=== PATIENT | male | born 1975 | race Caucasian/White ===

== ENCOUNTER 2016-08-06 03:39 | Inpatient (IN) | payer MEDICARE, OTHER ==
[2016-08-06] VITALS (7 sets, daily range): BP systolic 118–155; BP diastolic 62–99
[~2016-08-06] VITALS: Ht 177.8 cm; Wt 149.3 kg
[~2016-08-06 03:39] MED LIST: ACETAMINOPHEN325 M1 ORAL; ADVAIR 100-501 EACH INH; AMBIEN10 M1 ORAL; AMITRIPTYLINE25 MG ORAL; ATIVAN2 MG ORAL; BENTYL10 MG ORAL; COLACE100 MG ORAL; DEPAKOTE ER250 MG ORAL; DEPAKOTE ER500 MG ORAL; DILANTIN-1125 MG/5 M PO; DILANTIN100 MG ORAL; DILANTIN30 MG ORAL; DOCUSATE SODIU100 MG ORAL; FENTANYL1 EAC3 TDERMAL; FUROSEMIDE40 MG ORAL; HEPARIN SO5000 UNIT2 SUBQ; HYDROCHLOROTH12.5 M2 ORAL; HYDROCHLOROTH12.5 MG ORAL; LEVAQUIN500 MG ORAL; LISINOPRIL20 MG ORAL; MILK OF MA2400 MG/10 ORAL; MORPHINE IR15 MG ORAL; MORPHINE SULFAT30 M9 PO; NORCO 5-325 TA1 EAC1 ORAL; NORCO 5-325 TA1 EACH ORAL; NORVASC10 MG ORAL; PHENERGAN25 M1 ORAL; POLYETHYLENE GL17 GM ORAL; POTASSIUM CHLO20 ME3 PO; PROZAC20 MG ORAL; ROBAXIN-750750 MG PO; SEROQUEL XR400 MG ORAL; TEGRETOL200 MG PO; TOPIRAMATE100 MG ORAL; TRAZODONE HCL150 MG ORAL; TUMS500 MG ORAL; TYLENOL EXTRA500 MG ORAL; ZOFRAN ODT4 MG ORAL
[2016-08-06] MEDS ORDERED: Furosemide 40mg tab ORAL ONE (04:00)
--- NOTE | 2016-08-06 04:01 | Emergency Room Report ---
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 Pain has been ongoing since yesterday midsternal Patient also feels increased swelling in both of his lower extremities Has difficulty ambulating and feels more short of breath with exertion Patient reports poor compliance with seizure medication Reports that he was recently changed from his nursing facility to boarding care and has had also a new change with that and having difficulty getting medication Allergies: Coded Allergies: CEPHALEXIN (Verified Allergy, Mild, 12/13/14) PEANUT (Verified Allergy, Unknown, 11/19/15) Patient History Past Medical History: see triage record Pertinent Family History: none Reviewed Nursing Documentation: PMH: Agreed, PSxH: Agreed Nursing Documentation-PMH Hx Hypertension: Yes Hx COPD: Yes Hx Cancer: Yes - Sarcoma R femur and back Hx Gastrointestinal Problems: Yes History Of Psychiatric Problem: Yes - Bipolar, schizoeffective, anxiety, depression Hx Neurological Problems: Yes Hx Seizures: Yes Review of Systems All Other Systems: negative except mentioned in HPI Physical Exam Vital Signs Date Time Temp Pulse Resp B/P Pulse Ox O2 Delivery O2 Flow Rate FiO2 08/06/16 03:45 97.2 109 14 145/99 98 Room Air Sp02 EP Interpretation: reviewed, normal General Appearance: well appearing, no apparent distress Head: normocephalic, atraumatic Eyes: bilateral eye EOMI, bilateral eye PERRL ENT: hearing grossly normal, normal pharynx, TMs + canals normal, uvula midline Neck: full range of motion, supple, no meningismus, no bony tend Respiratory: no rhonchi, no respiratory distress, no retraction, no accessory muscle use, wheezing Cardiovascular #1: normal peripheral pulses, regular rate, rhythm, no gallop, no JVD, no murmur Gastrointestinal: normal bowel sounds, non tender, soft, no mass, no organomegaly, non-distended, no guarding, no hernia, no pulsatile mass, no rebound Genitourinary: no CVA tenderness Musculoskeletal: normal inspection Neurologic: oriented x3, responsive, vault person III-XII nml as tested, motor strength/ tone normal, sensory intact Psychiatric: mood/affect normal Skin: normal color, no rash, warm/dry, palpation normal Lymphatic: normal inspection, no adenopathy Medical Decision Making Diagnostic Impression: Primary Impression: ACS (acute coronary syndrome) Additional Impression: CHF (congestive heart failure) ER Course Patient is a fairly complex patient with multiple differential to consideration including but not limited to cardiac cardiopulmonary and vascular emergencies Patient's blood work is appropriate x-ray imaging does show evidence of congestion Patient was provided with diuretics At this time was admission for further care Labs Test 08/06/16 03:54 White Blood Count 14.3 K/UL (4.8-10.8) Red Blood Count 4.68 M/UL (4.70-6.10) Hemoglobin 14.3 G/DL (14.2-18.0) Hematocrit 42.6 % (42.0-52.0) Mean Corpuscular Volume 91 FL (80-99) Mean Corpuscular Hemoglobin 30.4 PG (27.0-31.0) Mean Corpuscular Hemoglobin Concent 33.4 G/DL (32.0-36.0) Red Cell Distribution Width 12.6 % (11.6-14.8) Platelet Count 277 K/UL (150-450) Mean Platelet Volume 6.9 FL (6.5-10.1) Neutrophils (%) (Auto) 67.6 % (45.0-75.0) Lymphocytes (%) (Auto) 23.7 % (20.0-45.0) Monocytes (%) (Auto) 6.9 % (1.0-10.0) Eosinophils (%) (Auto) 1.2 % (0.0-3.0) Basophils (%) (Auto) 0.7 % (0.0-2.0) Sodium Level 136 mEQ/L (135-145) Potassium Level 3.8 mEQ/L (3.4-4.9) Chloride Level 97 mEQ/L (98-107) Carbon Dioxide Level 22 mEQ/L (20-30) Anion Gap 17 (5-15) Blood Urea Nitrogen 9 mg/dL (7-23) Creatinine 0.7 mg/dL (0.7-1.2) Estimat Glomerular Filtration Rate > 60 mL/min (>60) Glucose Level 160 mg/dL (74-106) Calcium Level 9.1 mg/dL (8.6-10.2) Total Bilirubin 0.5 mg/dL (0.0-1.2) Aspartate Amino Transf (AST/SGOT) 34 U/L (5-40) Alanine Aminotransferase (ALT/SGPT) 45 U/L (3-41) Alkaline Phosphatase 149 U/L (40-129) Total Creatine Kinase 158 U/L (38-174) Creatine Kinase MB 5.2 ng/mL (< 6.7) Creatine Kinase MB Relative Index 3.2 Troponin I < 0.30 ng/mL (<=0.30) Pro-B-Type Natriuretic Peptide 10 pg/mL (0-125) Total Protein 6.6 g/dL (6.6-8.7) Albumin 3.9 g/dL (3.5-5.2) Globulin 2.7 g/dL Albumin/Globulin Ratio 1.4 (1.0-2.7) Lipase 26 U/L (< 60) Urine Opiates Screen Positive (NEGATIVE) Urine Barbiturates Screen Negative (NEGATIVE) Phencyclidine (PCP) Screen Negative (NEGATIVE) Urine Amphetamines Screen Negative (NEGATIVE) Urine Benzodiazepines Screen Positive (NEGATIVE) Urine Cocaine Screen Negative (NEGATIVE) Urine Marijuana (THC) Screen Positive (NEGATIVE) EKG Diagnostic Results Rate: normal Rhythm: NSR ST Segments: no acute changes Rhythm Strip Diag. Results EP Interpretation: yes Rate: 60 Rhythm: NSR, no PVC's, no ectopy Chest X-Ray Diagnostic Results EP Interpretation: Yes Findings: no consolidation, no pneumothorax, other - Pulmonary congestion, no acute bony abnormalities Number of Views: 1 Last Vital Signs Date Time Temp Pulse Resp B/P Pulse Ox O2 Delivery O2 Flow Rate FiO2 08/06/16 03:50 97.2 94 26 145/99 98 Room Air Status: improved Disposition: ADMITTED INPATIENT Condition: Serious PENNY BORRERO D.O. Aug 06, 2016 04:01
[2016-08-06] MEDS ORDERED: TEMAZEPAM30 MG ORAL (04:06)
[2016-08-06] MEDS ORDERED: NORCO 5-325 TA1 EACH ORAL (04:06)
[2016-08-06] MEDS ORDERED: DEPAKOTE ER500 MG ORAL (04:06)
[2016-08-06 04:12] LABS: BASOPHILS % (AUTO) 0.7 % (0.0-2.0); EOSINOPHILS % (AUTO) 1.2 % (0.0-3.0); LYMPHOCYTES % (AUTO) 23.7 % (20.0-45.0); MEAN CORPUSCULAR HEMOGLOBIN 30.4 PG (27.0-31.0); MEAN CORPUSCULAR HGB CONC 33.4 G/DL (32.0-36.0); MEAN CORPUSCULAR VOLUME 91 FL (80-99); MEAN PLATELET VOLUME 6.9 FL (6.5-10.1); MONOCYTES % (AUTO) 6.9 % (1.0-10.0); NEUTROPHILS % (AUTO) 67.6 % (45.0-75.0); PLATELET COUNT 277 K/UL (150-450); RED BLOOD COUNT 4.68 M/UL (4.70-6.10); RED CELL DISTRIBUTION WIDTH 12.6 % (11.6-14.8); WHITE BLOOD COUNT 14.3 K/UL (4.8-10.8)
[2016-08-06 04:26] LABS: ALANINE AMINOTRANSFERASE 45 U/L (3-41); ALBUMIN/GLOBULIN RATIO 1.4 (1.0-2.7); ANION GAP 17 (5-15); ASPARTATE AMINO TRANSFERASE 34 U/L (5-40); CALCIUM 9.1 mg/dL (8.6-10.2); CARBON DIOXIDE 22 mEQ/L (20-30); CHLORIDE 97 mEQ/L (98-107); CREATININE 0.7 mg/dL (0.7-1.2); GLOMERULAR FILTRATION RATE > 60 mL/min (>60); HEMOLYSIS 3; LIPASE 26 U/L (< 60); POTASSIUM 3.8 mEQ/L (3.4-4.9); SODIUM 136 mEQ/L (135-145); TOTAL PROTEIN 6.6 g/dL (6.6-8.7); TROPONIN I < 0.30 ng/mL (<=0.30)
[2016-08-06] MEDS ORDERED: Morphine Sulfate 10mg/ml Inj IVP ONE (04:30)
[2016-08-06 04:36] LABS: CKMB 5.2 ng/mL (< 6.7)
[2016-08-06] MEDS ORDERED: Morphine Sulfate 2mg/ml Inj IVP PRN ×2 (07:45→11:07)
[2016-08-06] MEDS ORDERED: Tums 500mg ORAL PRN (07:45)
[2016-08-06] MEDS ORDERED: Miralax 17gm pkt ORAL PRN ×2 (07:45)
[2016-08-06] MEDS ORDERED: DuoNeb 0.5-3(2.5)mg/3ml neb HHN PRN (07:45)
[2016-08-06] MEDS ORDERED: Diltiazem 25mg/5ml IV PRN (07:45)
[2016-08-06] MEDS ORDERED: Nitroglycerin Subl 0.4mg tab (Bottle Of 25) SL PRN (07:45)
[2016-08-06] MEDS ORDERED: Enalaprilat 2.5mg/2ml Inj IV PRN (07:45)
[2016-08-06] MEDS ORDERED: Ketorolac 30mg Inj IV PRN (07:45)
[2016-08-06] MEDS ORDERED: Methocarbamol 750mg tab ORAL PRN (08:30)
[2016-08-06] MEDS: Phenytoin Susp 100mg/4ml ORAL SCH (09:45)
[2016-08-06] MEDS: Depakote ER 500mg tab ORAL SCH ×2 (09:45→21:04)
[2016-08-06] MEDS: Topiramate 100mg tab ORAL SCH ×2 (09:46→17:04)
[2016-08-06] MEDS: carBAMazepine 200mg tab ORAL SCH ×2 (09:46→21:06)
[2016-08-06] MEDS: Heparin 5000 units/ml inj SUBQ SCH ×2 (09:48→21:01)
[2016-08-06] MEDS: Lisinopril 20mg tab ORAL SCH (09:51)
[2016-08-06] MEDS ORDERED: Naloxone 0.4mg/ml Inj IV PRN (11:00)
[2016-08-06] MEDS ORDERED: Aspirin Baby 81mg ORAL SCH (11:00)
--- NOTE | 2016-08-06 11:34 | Diagnostic Imaging Report ---
Indication: Chest pain Technique: One view of the chest Comparison: 11/23/2015 Findings: The heart is mildly enlarged. There is mild pulmonary vascular congestion, which is a new finding since the prior study. No focal airspace consolidation. Pleural spaces are clear. Impression: Cardiomegaly. Pulmonary vascular congestion. This agrees with the preliminary interpretation provided by the emergency room physician
--- NOTE | 2016-08-06 12:29 | Consultation ---
History of Present Illness General Date patient seen: Aug 06, 2016 Chief Complaint: Chest Pain Present Illness HPI 40 year old male with hx of bone sarcome, presents with complaints of chest pain or shortness of breath Patient also feels increased swelling in both of his lower extremities. Initial ccxr in ER showed cardiomegaly and pulmonary edema. Pt is admitted to telemetry for further evaluation. Allergies: Coded Allergies: KETOROLAC (Verified Allergy, Severe, 08/06/16) CEPHALEXIN (Verified Allergy, Mild, 12/13/14) PEANUT (Verified Allergy, Unknown, 11/19/15) Medication History Scheduled Amitriptyline HCl (Elavil*), 25 MG ORAL BEDTIME, (Reported) Amlodipine Besylate (Norvasc), 10 MG ORAL DAILY, (Reported) Carbamazepine (Tegretol*), 300 MG PO Q12HR, (Reported) Dicyclomine Hcl* (Bentyl*), 20 MG ORAL FOUR TIMES A DAY, (Reported) Divalproex Sodium* (Depakote Er*), 1,000 MG ORAL EVERY 12 HOURS, (Reported) Divalproex Sodium* (Depakote Er*), 750 MG ORAL DAILY, (Reported) Docusate Sodium* (Colace*), 100 MG ORAL DAILY, (Reported) Fentanyl 100MCG Patch* (Fentanyl 100MCG Patch*), 1 PATCH TDERMAL EVERY 72 HOURS, (Reported) Fluoxetine Hcl* (Prozac*), 20 MG ORAL DAILY, (Reported) Fluticasone/Salmeterol (Advair 100-50 Diskus), 1 PUFF INH BID, (Reported) Furosemide* (Lasix*), 40 MG ORAL DAILY, (Reported) Heparin Sod (Porcine) (Heparin Sodium*), 5,000 UNITS SUBQ EVERY 12 HOURS, ( Reported) Hydrochlorothiazide* (Hydrochlorothiazide*), 12.5 MG ORAL DAILY, (Reported) Lisinopril (Lisinopril*), 20 MG ORAL DAILY, (Reported) Lorazepam* (Ativan*), 2 MG ORAL EVERY 6 HOURS, (Reported) Morphine Sulfate (Morphine Sulfate ER), 30 MG PO Q8HR, (Reported) Phenytoin (Dilantin-125), 250 MG PO DAILY, (Reported) Potassium Chloride (Potassium Chloride), 20 MEQ PO DAILY, (Reported) Promethazine Hcl* (Phenergan*), 25 MG ORAL Q4HR, (Reported) Quetiapine Fumarate (Seroquel Xr), 400 MG ORAL DAILY, (Reported) Topiramate* (Topamax*), 50 MG ORAL TWICE A DAY, (Reported) Trazodone* (Trazodone*), 100 MG ORAL BEDTIME, (Reported) Scheduled PRN Acetaminophen* (Acetaminophen 325MG Tablet*), 650 MG ORAL Q6H PRN for Mild Pain/ Temp > 100.5, (Reported) Calcium Carbonate (Calcium), 500 MG ORAL Q4HR PRN for Per rx protocol, (Reported ) Hydrocodone Bit/Acetaminophen 5-325* ([place] 5-325 Tablet*), 2 TAB ORAL Q4H PRN for For Pain, (Reported) Hydrocodone Bit/Acetaminophen 5-325* ([place] 5-325*), 1 TAB ORAL Q4H PRN for For Pain, (Reported) Magnesium Hydroxide* (Milk Of Magnesia*), 30 ML ORAL DAILY PRN for Constipation, (Reported) Methocarbamol* (Robaxin-750*), 750 MG PO QID PRN for Muscle Spasm, (Reported) Morphine HCl (Morphine Sulfate ER), 15 MG ORAL Q6H PRN for Severe Pain (Pain Scale 7-10), (Reported) Ondansetron Odt* (Zofran Odt*), 4 MG ORAL Q4HR PRN for Nausea & Vomiting, ( Reported) Polyethylene Glycol 3350* (Polyethylene Glycol 3350*), 17 GM ORAL BEDTIME PRN for Constipation, (Reported) Temazepam* (Temazepam*), 15 MG ORAL BEDTIME PRN for Insomnia, (Reported) Zolpidem Tartrate* (Ambien*), 10 MG ORAL HS PRN for Insomnia, (Reported) Patient History Healthcare decision maker Resuscitation status Full Code Advanced Directive on File Past Medical/Surgical History Past Medical/Surgical History: (1) CHF (congestive heart failure) (2) Hepatitis C (3) Osteosarcoma (4) Morbid obesity Review of Systems All Other Systems: negative except mentioned in HPI Physical Exam General Appearance: WD/WN, no apparent distress Lines, tubes and drains: peripheral HEENT: normocephalic, atraumatic Neck: non-tender, normal alignment Respiratory/Chest: chest wall non-tender, lungs clear Cardiovascular/Chest: normal peripheral pulses, normal rate Abdomen: normal bowel sounds, non tender Extremities: normal range of motion, non-tender Skin Exam: normal pigmentation Last 24 Hour Vital Signs Date Time Temp Pulse Resp B/P Pulse Ox O2 Delivery O2 Flow Rate FiO2 08/06/16 12:05 98.4 88 20 118/77 91 Nasal Cannula 08/06/16 09:51 140/62 08/06/16 09:45 83 140/62 08/06/16 08:00 83 08/06/16 08:00 97.8 83 25 140/62 92 Nasal Cannula 08/06/16 07:15 Nasal Cannula 2.0 28 08/06/16 07:15 98 Nasal Cannula 2.0 28 08/06/16 06:34 97.3 83 20 118/75 95 Nasal Cannula 2.0 08/06/16 05:50 97.5 83 19 138/83 96 Room Air 08/06/16 05:50 97.5 83 19 138/83 96 Room Air 08/06/16 04:52 97.2 08/06/16 03:50 97.2 94 26 145/99 98 Room Air 08/06/16 03:50 94 26 Room Air 08/06/16 03:45 97.2 109 14 145/99 98 Room Air Intake and Output 08/05/16 08/06/16 19:00 07:00 Intake Total 0 ml Output Total 100 ml Balance -100 ml Intake Other 0 ml Output Urine Total 100 ml # Voids 1 Laboratory Tests Test 08/06/16 03:54 White Blood Count 14.3 K/UL (4.8-10.8) H Red Blood Count 4.68 M/UL (4.70-6.10) L Hemoglobin 14.3 G/DL (14.2-18.0) Hematocrit 42.6 % (42.0-52.0) Mean Corpuscular Volume 91 FL (80-99) Mean Corpuscular Hemoglobin 30.4 PG (27.0-31.0) Mean Corpuscular Hemoglobin Concent 33.4 G/DL (32.0-36.0) Red Cell Distribution Width 12.6 % (11.6-14.8) Platelet Count 277 K/UL (150-450) Mean Platelet Volume 6.9 FL (6.5-10.1) Neutrophils (%) (Auto) 67.6 % (45.0-75.0) Lymphocytes (%) (Auto) 23.7 % (20.0-45.0) Monocytes (%) (Auto) 6.9 % (1.0-10.0) Eosinophils (%) (Auto) 1.2 % (0.0-3.0) Basophils (%) (Auto) 0.7 % (0.0-2.0) Sodium Level 136 mEQ/L (135-145) Potassium Level 3.8 mEQ/L (3.4-4.9) Chloride Level 97 mEQ/L (98-107) L Carbon Dioxide Level 22 mEQ/L (20-30) Anion Gap 17 (5-15) H Blood Urea Nitrogen 9 mg/dL (7-23) Creatinine 0.7 mg/dL (0.7-1.2) Estimat Glomerular Filtration Rate > 60 mL/min (>60) Glucose Level 160 mg/dL (74-106) H Calcium Level 9.1 mg/dL (8.6-10.2) Total Bilirubin 0.5 mg/dL (0.0-1.2) Aspartate Amino Transf (AST/SGOT) 34 U/L (5-40) Alanine Aminotransferase (ALT/SGPT) 45 U/L (3-41) H Alkaline Phosphatase 149 U/L (40-129) H Total Creatine Kinase 158 U/L (38-174) Creatine Kinase MB 5.2 ng/mL (< 6.7) Creatine Kinase MB Relative Index 3.2 Troponin I < 0.30 ng/mL (<=0.30) Pro-B-Type Natriuretic Peptide 10 pg/mL (0-125) Total Protein 6.6 g/dL (6.6-8.7) Albumin 3.9 g/dL (3.5-5.2) Globulin 2.7 g/dL Albumin/Globulin Ratio 1.4 (1.0-2.7) Lipase 26 U/L (< 60) Urine Opiates Screen Positive (NEGATIVE) H Urine Barbiturates Screen Negative (NEGATIVE) Phencyclidine (PCP) Screen Negative (NEGATIVE) Urine Amphetamines Screen Negative (NEGATIVE) Urine Benzodiazepines Screen Positive (NEGATIVE) H Urine Cocaine Screen Negative (NEGATIVE) Urine Marijuana (THC) Screen Positive (NEGATIVE) H Height (Feet): 5 Height (Inches): 10.00 Weight (Pounds): 337 Medications Current Medications Medications (Trade) Dose Ordered Sig/Robert Route PRN Reason Start Time Stop Time Status Last Admin Dose Admin Acetaminophen (Tylenol) 650 mg Q4H PRN ORAL FEVER 08/06/16 07:45 09/05/16 07:44 Albuterol/ Ipratropium (DuoNeb 0.5-3(2.5)mg/3ml) 3 ml Q4H PRN HHN Shortness of Breath 08/06/16 07:45 08/11/16 07:44 Amitriptyline HCl (Elavil) 25 mg BEDTIME ORAL 08/06/16 21:00 09/05/16 20:59 Amlodipine Besylate (Norvasc) 10 mg DAILY ORAL 08/06/16 10:00 09/05/16 09:59 08/06/16 09:45 Calcium Carbonate (Tums) 500 mg Q4H PRN ORAL dyspepsia 08/06/16 07:45 09/05/16 07:44 Carbamazepine (TEGretol) 300 mg Q12HR ORAL 08/06/16 10:00 09/05/16 09:59 08/06/16 09:46 Diltiazem HCl (Cardizem) 10 mg Q1H PRN IV heart rate more than 120, 08/06/16 07:45 09/05/16 07:44 Divalproex Sodium (Depakote ER) 1,000 mg EVERY 12 HOURS ORAL 08/06/16 10:00 09/05/16 09:59 08/06/16 09:45 Enalaprilat (Vasotec) 2.5 mg Q6H PRN IV sbp more than 160 08/06/16 07:45 09/05/16 07:44 Fentanyl (Duragesic) 1 patch Q72H TDERMAL 08/06/16 12:00 08/13/16 11:59 08/06/16 11:27 Fluoxetine HCl (PROzac) 20 mg DAILY ORAL 08/06/16 10:00 09/05/16 09:59 08/06/16 09:47 Heparin Sodium (Porcine) (Heparin 5000 units/ml) 5,000 units EVERY 12 HOURS SUBQ 08/06/16 10:00 09/05/16 09:59 08/06/16 09:48 Hydromorphone HCl (Dilaudid) 2 mg Q3H PRN IVP Severe Pain (Pain Scale 7-10) 08/06/16 10:45 08/13/16 10:44 08/06/16 11:28 Lisinopril (Prinivil) 20 mg DAILY ORAL 08/06/16 10:00 09/05/16 09:59 08/06/16 09:51 Methocarbamol (Robaxin) 750 mg QIDPRN PRN ORAL Muscle Spasm 08/06/16 08:30 09/05/16 08:29 Morphine Sulfate (Morphine Sulfate) 2 mg Q4H PRN IVP Moderate Pain (Pain Scale 4-6) 08/06/16 11:07 08/13/16 07:44 Naloxone HCl (Narcan) 0.1 mg STAT PRN IV Sedation scale 3 or 4 08/06/16 11:00 09/05/16 10:59 Nitroglycerin (Ntg) 0.4 mg Q5M PRN SL Prn Chest Pain 08/06/16 07:45 09/05/16 07:44 Ondansetron HCl (Zofran) 4 mg Q6H PRN IVP Nausea & Vomiting 08/06/16 07:45 09/05/16 07:44 Pantoprazole (Protonix) 40 mg DAILY ORAL 08/06/16 10:00 09/05/16 09:59 08/06/16 09:48 Phenytoin (Dilantin) 250 mg DAILY ORAL 08/06/16 10:00 09/05/16 09:59 08/06/16 09:45 Polyethylene Glycol (Miralax) 17 gm DAILYPRN PRN ORAL Constipation 08/06/16 07:45 09/05/16 07:44 Temazepam (Restoril) 15 mg HSPRN PRN ORAL Insomnia 08/06/16 07:45 08/13/16 07:44 Topiramate (Topamax) 50 mg TWICE A DAY ORAL 08/06/16 10:00 09/05/16 09:59 08/06/16 09:46 Trazodone HCl (Desyrel) 100 mg BEDTIME ORAL 08/06/16 21:00 09/05/16 20:59 Assessment/Plan Problem List: (1) ACS (acute coronary syndrome) ICD Codes: I24.9 - Acute ischemic heart disease, unspecified SNOMED: 200362336 (2) CHF (congestive heart failure) ICD Codes: I50.9 - Heart failure, unspecified SNOMED: 01004459 (3) Morbid obesity ICD Codes: E66.01 - Morbid (severe) obesity due to excess calories SNOMED: 081524691 (4) Osteosarcoma ICD Codes: C41.9 - Malignant neoplasm of bone and articular cartilage, unspecified SNOMED: 041489549 (5) Hepatitis C ICD Codes: B19.20 - Unspecified viral hepatitis C without hepatic coma SNOMED: 45987098 Assessment/Plan serial ekg, troponin pain management cardiology to see echo LAUREN OCHOA Aug 06, 2016 12:29
--- NOTE | 2016-08-06 18:06 | General Progress Note ---
Assessment/Plan Assessment/Plan (1) Osteosarcoma of femur (2) Morbid obesity (3) Chronic pain syndrome (4) Seizure disorder Patient will be continued on Dilaudid 2mg IV Q3H PRN severe pain, Fentanyl patch 100mcg/hr Q72H, discontinue Morphine IV and start Lyrica 100mg POI tab TID , Percocet 10/325mg PO 1 tab Q4H moderate pain. We will try to Obtain recent MRI results of lumbar spine. Pt was d/w Dr. Muhammad and he concurred. Thank you for courtesy of this consultation. Subjective Date patient seen: Aug 06, 2016 Time patient seen: 04:00 - pm Allergies: Coded Allergies: KETOROLAC (Verified Allergy, Severe, 08/06/16) ASPIRIN (Verified Allergy, Intermediate, 08/06/16) CEPHALEXIN (Verified Allergy, Mild, 12/13/14) PEANUT (Verified Allergy, Unknown, 11/19/15) Subjective REVIEW OF SYSTEMS: Denies rash, fever, chills, sweating, dizziness, drowsiness, blurred vision, sore throat, change in weight. No chest pain. He is complaining of low back and lower extremity pain. SUBJECTIVE: Pt is a known pt from prior admission and is admitted due to ACS. 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 We were consulted so pt would have adequate pain control while in the hospital. At this time nurse was present in the room and I d/w him about continuing him on Fentanyl patch and Dilaudid IVP discontinuing the Morphine IVP and starting him on Percocet and Lyrica while trying to obtain his most recent MRI of lumbar spine which pt reports he has recently done. Patient agrees with the plan. Objective Last 24 Hour Vital Signs Date Time Temp Pulse Resp B/P Pulse Ox O2 Delivery O2 Flow Rate FiO2 08/06/16 16:00 97.0 82 18 120/82 98 Room Air 80 08/06/16 12:05 98.4 88 20 118/77 91 Nasal Cannula 08/06/16 12:00 89 08/06/16 09:51 140/62 08/06/16 09:45 83 140/62 08/06/16 08:00 83 08/06/16 08:00 97.8 83 25 140/62 92 Nasal Cannula 08/06/16 07:15 Nasal Cannula 2.0 28 08/06/16 07:15 98 Nasal Cannula 2.0 28 08/06/16 06:34 97.3 83 20 118/75 95 Nasal Cannula 2.0 08/06/16 05:50 97.5 83 19 138/83 96 Room Air 08/06/16 05:50 97.5 83 19 138/83 96 Room Air 08/06/16 04:52 97.2 08/06/16 03:50 97.2 94 26 145/99 98 Room Air 08/06/16 03:50 94 26 Room Air 08/06/16 03:45 97.2 109 14 145/99 98 Room Air Intake and Output 08/05/16 08/06/16 19:00 07:00 Intake Total 0 ml Output Total 100 ml Balance -100 ml Intake Other 0 ml Output Urine Total 100 ml # Voids 1 Laboratory Tests 08/06/16 03:54: White Blood Count 14.3H, Red Blood Count 4.68L, Hemoglobin 14.3, Hematocrit 42.6 , Mean Corpuscular Volume 91, Mean Corpuscular Hemoglobin 30.4, Mean Corpuscular Hemoglobin Concent 33.4, Red Cell Distribution Width 12.6, Platelet Count 277, Mean Platelet Volume 6.9, Neutrophils (%) (Auto) 67.6, Lymphocytes (% ) (Auto) 23.7, Monocytes (%) (Auto) 6.9, Eosinophils (%) (Auto) 1.2, Basophils ( %) (Auto) 0.7, Sodium Level 136, Potassium Level 3.8, Chloride Level 97L, Carbon Dioxide Level 22, Anion Gap 17H, Blood Urea Nitrogen 9, Creatinine 0.7, Estimat Glomerular Filtration Rate > 60, Glucose Level 160H, Calcium Level 9.1, Total Bilirubin 0.5, Aspartate Amino Transf (AST/SGOT) 34, Alanine Aminotransferase (ALT/SGPT) 45H, Alkaline Phosphatase 149H, Total Creatine Kinase 158, Creatine Kinase MB 5.2, Creatine Kinase MB Relative Index 3.2, Troponin I < 0.30, Pro-B-Type Natriuretic Peptide 10, Total Protein 6.6, Albumin 3.9, Globulin 2.7, Albumin/Globulin Ratio 1.4, Lipase 26, Urine Opiates Screen PositiveH, Urine Barbiturates Screen Negative, Phencyclidine (PCP) Screen Negative, Urine Amphetamines Screen Negative, Urine Benzodiazepines Screen PositiveH, Urine Cocaine Screen Negative, Urine Marijuana (THC) Screen PositiveH Height (Feet): 5 Height (Inches): 10.00 Weight (Pounds): 337 Objective GENERAL: Alert and oriented x3. HEENT: PERRLA. NECK: Range of motion is full in all direction. No tenderness to paracervical muscles. No adenopathy. LUNGS: Clear. HEART: Regular. ABDOMEN: Obese, tenderness to palpation BACK: Range of motion is decreased on flexion and extension with tenderness to paraspinal muscles. No tenderness to trapezius muscles. EXTREMITIES: No cyanosis, no clubbing, no edema. NEUROLOGICAL EXAM: Lower extremities range of motion is decreased due to patient's medical condition with motor being 4/5 in all muscles bilaterally. LIA HAGEN Aug 06, 2016 18:06
[2016-08-06] MEDS: Lyrica 50mg cap ORAL SCH (18:29)
--- NOTE | 2016-08-06 20:24 | Infectious Diseases Prog Note ---
Assessment/Plan Problems: (1) Chest pain (2) CHF (congestive heart failure) (3) Leukocytosis Subjective Allergies: Coded Allergies: KETOROLAC (Verified Allergy, Severe, 08/06/16) ASPIRIN (Verified Allergy, Intermediate, 08/06/16) CEPHALEXIN (Verified Allergy, Mild, 12/13/14) PEANUT (Verified Allergy, Unknown, 11/19/15) Objective Vital Signs Last 24 Hour Vital Signs Date Time Temp Pulse Resp B/P Pulse Ox O2 Delivery O2 Flow Rate FiO2 08/06/16 20:20 98.3 87 20 155/98 99 Nasal Cannula 2.0 08/06/16 16:00 97.0 82 18 120/82 98 Room Air 80 08/06/16 16:00 91 08/06/16 12:05 98.4 88 20 118/77 91 Nasal Cannula 08/06/16 12:00 89 08/06/16 09:51 140/62 08/06/16 09:45 83 140/62 08/06/16 08:00 83 08/06/16 08:00 97.8 83 25 140/62 92 Nasal Cannula 08/06/16 07:15 Nasal Cannula 2.0 28 08/06/16 07:15 98 Nasal Cannula 2.0 28 08/06/16 06:34 97.3 83 20 118/75 95 Nasal Cannula 2.0 08/06/16 05:50 97.5 83 19 138/83 96 Room Air 08/06/16 05:50 97.5 83 19 138/83 96 Room Air 08/06/16 04:52 97.2 08/06/16 03:50 97.2 94 26 145/99 98 Room Air 08/06/16 03:50 94 26 Room Air 08/06/16 03:45 97.2 109 14 145/99 98 Room Air Height (Feet): 5 Height (Inches): 10.00 Weight (Pounds): 337 Laboratory Tests Test 08/06/16 03:54 White Blood Count 14.3 K/UL (4.8-10.8) H Red Blood Count 4.68 M/UL (4.70-6.10) L Hemoglobin 14.3 G/DL (14.2-18.0) Hematocrit 42.6 % (42.0-52.0) Mean Corpuscular Volume 91 FL (80-99) Mean Corpuscular Hemoglobin 30.4 PG (27.0-31.0) Mean Corpuscular Hemoglobin Concent 33.4 G/DL (32.0-36.0) Red Cell Distribution Width 12.6 % (11.6-14.8) Platelet Count 277 K/UL (150-450) Mean Platelet Volume 6.9 FL (6.5-10.1) Neutrophils (%) (Auto) 67.6 % (45.0-75.0) Lymphocytes (%) (Auto) 23.7 % (20.0-45.0) Monocytes (%) (Auto) 6.9 % (1.0-10.0) Eosinophils (%) (Auto) 1.2 % (0.0-3.0) Basophils (%) (Auto) 0.7 % (0.0-2.0) Sodium Level 136 mEQ/L (135-145) Potassium Level 3.8 mEQ/L (3.4-4.9) Chloride Level 97 mEQ/L (98-107) L Carbon Dioxide Level 22 mEQ/L (20-30) Anion Gap 17 (5-15) H Blood Urea Nitrogen 9 mg/dL (7-23) Creatinine 0.7 mg/dL (0.7-1.2) Estimat Glomerular Filtration Rate > 60 mL/min (>60) Glucose Level 160 mg/dL (74-106) H Calcium Level 9.1 mg/dL (8.6-10.2) Total Bilirubin 0.5 mg/dL (0.0-1.2) Aspartate Amino Transf (AST/SGOT) 34 U/L (5-40) Alanine Aminotransferase (ALT/SGPT) 45 U/L (3-41) H Alkaline Phosphatase 149 U/L (40-129) H Total Creatine Kinase 158 U/L (38-174) Creatine Kinase MB 5.2 ng/mL (< 6.7) Creatine Kinase MB Relative Index 3.2 Troponin I < 0.30 ng/mL (<=0.30) Pro-B-Type Natriuretic Peptide 10 pg/mL (0-125) Total Protein 6.6 g/dL (6.6-8.7) Albumin 3.9 g/dL (3.5-5.2) Globulin 2.7 g/dL Albumin/Globulin Ratio 1.4 (1.0-2.7) Lipase 26 U/L (< 60) Urine Opiates Screen Positive (NEGATIVE) H Urine Barbiturates Screen Negative (NEGATIVE) Phencyclidine (PCP) Screen Negative (NEGATIVE) Urine Amphetamines Screen Negative (NEGATIVE) Urine Benzodiazepines Screen Positive (NEGATIVE) H Urine Cocaine Screen Negative (NEGATIVE) Urine Marijuana (THC) Screen Positive (NEGATIVE) H Current Medications Medications (Trade) Dose Ordered Sig/Robert Route PRN Reason Start Time Stop Time Status Last Admin Dose Admin Acetaminophen (Tylenol) 650 mg Q4H PRN ORAL FEVER 08/06/16 07:45 09/05/16 07:44 Albuterol/ Ipratropium (DuoNeb 0.5-3(2.5)mg/3ml) 3 ml Q4H PRN HHN Shortness of Breath 08/06/16 07:45 08/11/16 07:44 Amitriptyline HCl (Elavil) 25 mg BEDTIME ORAL 08/06/16 21:00 09/05/16 20:59 Amlodipine Besylate (Norvasc) 10 mg DAILY ORAL 08/06/16 10:00 09/05/16 09:59 08/06/16 09:45 Calcium Carbonate (Tums) 500 mg Q4H PRN ORAL dyspepsia 08/06/16 07:45 09/05/16 07:44 Carbamazepine (TEGretol) 300 mg Q12HR ORAL 08/06/16 10:00 09/05/16 09:59 08/06/16 09:46 Diltiazem HCl (Cardizem) 10 mg Q1H PRN IV heart rate more than 120, 08/06/16 07:45 09/05/16 07:44 Divalproex Sodium (Depakote ER) 1,000 mg EVERY 12 HOURS ORAL 08/06/16 10:00 09/05/16 09:59 08/06/16 09:45 Enalaprilat (Vasotec) 2.5 mg Q6H PRN IV sbp more than 160 08/06/16 07:45 09/05/16 07:44 Fentanyl (Duragesic) 1 patch Q72H TDERMAL 08/06/16 12:00 08/13/16 11:59 08/06/16 11:27 Fluoxetine HCl (PROzac) 20 mg DAILY ORAL 08/06/16 10:00 09/05/16 09:59 08/06/16 09:47 Heparin Sodium (Porcine) (Heparin 5000 units/ml) 5,000 units EVERY 12 HOURS SUBQ 08/06/16 10:00 09/05/16 09:59 08/06/16 09:48 Hydromorphone HCl (Dilaudid) 2 mg Q3H PRN IVP Severe Pain (Pain Scale 7-10) 08/06/16 10:45 08/13/16 10:44 08/06/16 18:58 Lisinopril (Prinivil) 20 mg DAILY ORAL 08/06/16 10:00 09/05/16 09:59 08/06/16 09:51 Methocarbamol (Robaxin) 750 mg QIDPRN PRN ORAL Muscle Spasm 08/06/16 08:30 09/05/16 08:29 Naloxone HCl (Narcan) 0.1 mg STAT PRN IV Sedation scale 3 or 4 08/06/16 11:00 09/05/16 10:59 Nitroglycerin (Ntg) 0.4 mg Q5M PRN SL Prn Chest Pain 08/06/16 07:45 09/05/16 07:44 Ondansetron HCl (Zofran) 4 mg Q6H PRN IVP Nausea & Vomiting 08/06/16 07:45 09/05/16 07:44 Oxycodone/ Acetaminophen (Percocet 10/325) 1 tab Q4H PRN ORAL moderate breakthrough pain 08/06/16 18:15 08/13/16 18:14 Pantoprazole (Protonix) 40 mg DAILY ORAL 08/06/16 10:00 09/05/16 09:59 08/06/16 09:48 Phenytoin (Dilantin) 250 mg DAILY ORAL 08/06/16 10:00 09/05/16 09:59 08/06/16 09:45 Polyethylene Glycol (Miralax) 17 gm DAILYPRN PRN ORAL Constipation 08/06/16 07:45 09/05/16 07:44 Pregabalin (Lyrica) 100 mg THREE TIMES A DAY ORAL 08/06/16 18:30 09/05/16 18:29 08/06/16 18:29 Temazepam (Restoril) 15 mg HSPRN PRN ORAL Insomnia 08/06/16 07:45 08/13/16 07:44 Topiramate (Topamax) 50 mg TWICE A DAY ORAL 08/06/16 10:00 09/05/16 09:59 08/06/16 17:04 Trazodone HCl (Desyrel) 100 mg BEDTIME ORAL 08/06/16 21:00 09/05/16 20:59 Uri Tesfaye M.D. Aug 06, 2016 20:24
[2016-08-06] MEDS: TraZODone 100mg tab ORAL SCH (21:05)
[2016-08-07 00:13] VITALS: BP 106/48
--- NOTE | 2016-08-07 02:45 | History and Physical Report ---
DATE OF ADMISSION: 08/06/2016 TIME SEEN: 4 p.m. CONSULTANTS: 1. Chevy Rosenthal M.D. 2. Ministerio Joe M.D. 3. Awa Thomas M.D. 4. Ignacio Muhammad M.D. CHIEF COMPLAINT: Chest pain and congestive heart failure exacerbation. BRIEF HISTORY: This is a 40-year-old male initially from [facility], went to independent living, now currently in between places, had chest pain substernal intermittently for two days, slightly short of breath, came to [facility], diagnosed with the above, and admitted to telemetry for further care. Currently, very anxious and sad in bed, oriented x3, and in no acute distress. He has slight chest pain and slight short of breath. No nausea, vomiting, or diarrhea. PAST MEDICAL HISTORY: Hypertension, CHF, encephalopathy, COPD, sleep apnea, and right femur sarcoma. PAST SURGICAL HISTORY: Gallbladder. MEDICATIONS: Include Elavil, Desyrel, Duragesic, morphine sulfate, Narcan, Dilaudid, Norvasc, Tegretol, Depakote, Prozac, Prinivil, and Dilantin. ALLERGIES: Aspirin, Keflex, and ketorolac. SOCIAL HISTORY: Positive for smoking. No alcohol. Positive marijuana use. PHYSICAL EXAMINATION: GENERAL: Calm, slightly anxious in bed, oriented x3, and in no acute distress. VITAL SIGNS: Show temperature of 98 degrees, pulse 88, respirations 20, and blood pressure 118/77. CARDIOVASCULAR: No murmurs. LUNGS: Distant and clear. ABDOMEN: Bowel sounds positive. Nontender and nondistended. EXTREMITIES: No cyanosis, clubbing, or edema. NEUROLOGIC: The patient moves all extremities, but slightly weak. LABORATORY DATA: Show white count 14, otherwise CBC is normal. BMP shows chloride 97, glucose 160, alkaline phosphatase 149, ALT 45, otherwise normal. Urine toxicology show positive benzo and positive marijuana. ASSESSMENT: 1. Chest pain. 2. Congestive heart failure. 3. Obesity. 4. Hypertension. 5. Diabetes. 6. Encephalopathy. 7. Chronic obstructive pulmonary disease. 8. Sleep apnea. 9. Right femur sarcoma. 10. Leukocytosis. PLAN: 1. Continue premedications. 2. Antibiotics per Infectious Disease 3. OT, PT, and dietary evaluation. 4. Home medications. 5. Blood pressure and blood sugar control. 6. Pain control. 7. Dr. Rosenthal, Dr. Joe, Dr. Thomas, and Dr. Muhammad to consult. Jeremiah Singh D.O. DR: ANGE JOB#: [id number] CC:
[2016-08-07 03:58] VITALS: BP 98/46
[2016-08-07 06:52] LABS: CHOLESTEROL/HDL RATIO 4.9 (3.3-4.4); CRP QUANT 2.3 mg/dL (< 0.5)
[2016-08-07 06:56] LABS: THYROID STIMULATING HORMONE 0.846 uIU/mL (0.300-4.500)
[2016-08-07 07:01] LABS: BASOPHILS % (AUTO) 0.6 % (0.0-2.0); EOSINOPHILS % (AUTO) 1.6 % (0.0-3.0); LYMPHOCYTES % (AUTO) 26.7 % (20.0-45.0); MEAN CORPUSCULAR HEMOGLOBIN 30.6 PG (27.0-31.0); MEAN CORPUSCULAR HGB CONC 33.1 G/DL (32.0-36.0); MEAN CORPUSCULAR VOLUME 93 FL (80-99); MEAN PLATELET VOLUME 7.6 FL (6.5-10.1); MONOCYTES % (AUTO) 6.7 % (1.0-10.0); NEUTROPHILS % (AUTO) 64.3 % (45.0-75.0); PLATELET COUNT 253 K/UL (150-450); RED CELL DISTRIBUTION WIDTH 13.1 % (11.6-14.8); WHITE BLOOD COUNT 10.8 K/UL (4.8-10.8)
[2016-08-07 07:18] LABS: TROPONIN I < 0.30 ng/mL (<=0.30)
[2016-08-07 07:58] VITALS: BP 119/68
[2016-08-07] MEDS: Lyrica 50mg cap ORAL SCH ×3 (09:33→17:58)
[2016-08-07] MEDS: Phenytoin Susp 100mg/4ml ORAL SCH (09:33)
[2016-08-07] MEDS: carBAMazepine 200mg tab ORAL SCH ×2 (09:34→20:46)
[2016-08-07] MEDS: Lisinopril 20mg tab ORAL SCH (09:34)
[2016-08-07] MEDS: Depakote ER 500mg tab ORAL SCH ×2 (09:35→20:43)
[2016-08-07] MEDS: Topiramate 100mg tab ORAL SCH ×2 (09:35→17:54)
[2016-08-07] MEDS: Heparin 5000 units/ml inj SUBQ SCH ×2 (09:41→20:50)
--- NOTE | 2016-08-07 09:57 | General Progress Note ---
Assessment/Plan Assessment/Plan (1) Osteosarcoma of femur (2) Morbid obesity (3) Chronic pain syndrome (4) Seizure disorder Patient will be continued on medication as per set up inspector. He no longer would like our services at this time, We will sign off from seeing the patient at this time, set up inspector was informed. Pt was d/w Dr. Muhammad and he concurred. Subjective Date patient seen: Aug 07, 2016 Time patient seen: 10:00 - am Allergies: Coded Allergies: KETOROLAC (Verified Allergy, Severe, 08/06/16) ASPIRIN (Verified Allergy, Intermediate, 08/06/16) CEPHALEXIN (Verified Allergy, Mild, 12/13/14) PEANUT (Verified Allergy, Unknown, 11/19/15) Subjective REVIEW OF SYSTEMS: Denies rash, fever, chills, sweating, dizziness, drowsiness, blurred vision, sore throat, change in weight. No chest pain. He is complaining of low back and lower extremity pain. SUBJECTIVE: Pt reports that he no longer would like our service. Patient was cooperative yesterday when I explained to him that we would request the MRI of his lumbar spine results from his physicians office so we could better asses his condition and treatment options. However this morning the patient only would like the Dilaudid to be increased to 4mg IVP Q2H as needed for pain and not take the Lyrica. He was no anger or upset over this issues and nurses were notified. Objective Last 24 Hour Vital Signs Date Time Temp Pulse Resp B/P Pulse Ox O2 Delivery O2 Flow Rate FiO2 08/07/16 09:34 119/68 08/07/16 09:33 85 119/68 08/07/16 07:58 97.3 85 18 119/68 98 Room Air 85 08/07/16 07:06 Nasal Cannula 2.0 28 08/07/16 07:06 90 18 Nasal Cannula 2.0 28 08/07/16 07:06 98 Nasal Cannula 2.0 28 08/07/16 04:49 74 08/07/16 03:58 98.2 71 21 98/46 98 Nasal Cannula 2.0 08/07/16 00:13 97.9 79 19 106/48 79 Nasal Cannula 2.0 08/07/16 00:00 77 08/06/16 20:59 99 Nasal Cannula 2.0 28 08/06/16 20:59 Nasal Cannula 2.0 28 08/06/16 20:20 98.3 87 20 155/98 99 Nasal Cannula 2.0 08/06/16 20:00 96 08/06/16 16:00 97.0 82 18 120/82 98 Room Air 80 08/06/16 16:00 91 08/06/16 12:05 98.4 88 20 118/77 91 Nasal Cannula 08/06/16 12:00 89 Intake and Output 08/06/16 08/07/16 19:00 07:00 Intake Total 230 ml 300 ml Balance 230 ml 300 ml Intake Oral 230 ml 300 ml # Voids 2 1 Laboratory Tests 08/07/16 06:05: White Blood Count 10.8, Red Blood Count 4.30L, Hemoglobin 13.2L, Hematocrit 39.8L, Mean Corpuscular Volume 93, Mean Corpuscular Hemoglobin 30.6, Mean Corpuscular Hemoglobin Concent 33.1, Red Cell Distribution Width 13.1, Platelet Count 253, Mean Platelet Volume 7.6, Neutrophils (%) (Auto) 64.3, Lymphocytes (% ) (Auto) 26.7, Monocytes (%) (Auto) 6.7, Eosinophils (%) (Auto) 1.6, Basophils ( %) (Auto) 0.6, Prothrombin Time 10.0, Prothromb Time International Ratio 1.0, Activated Partial Thromboplast Time 24, Troponin I < 0.30, C-Reactive Protein, Quantitative 2.3H, Triglycerides Level 180H, Cholesterol Level 162, LDL Cholesterol 93, HDL Cholesterol 33, Cholesterol/HDL Ratio 4.9H, Thyroid Stimulating Hormone (TSH) 0.846 Height (Feet): 5 Height (Inches): 10.00 Weight (Pounds): 337 Objective GENERAL: Alert and oriented x3. HEENT: PERRLA. NECK: Range of motion is full in all direction. No tenderness to paracervical muscles. No adenopathy. LUNGS: Clear. HEART: Regular. ABDOMEN: Obese, tenderness to palpation BACK: Range of motion is decreased on flexion and extension with tenderness to paraspinal muscles. No tenderness to trapezius muscles. EXTREMITIES: No cyanosis, no clubbing, no edema. NEUROLOGICAL EXAM: Lower extremities range of motion is decreased due to patient's medical condition with motor being 4/5 in all muscles bilaterally. LIA HAGEN Aug 07, 2016 09:57
[2016-08-07 11:33] VITALS: BP 151/75
--- NOTE | 2016-08-07 13:56 | General Progress Note ---
Assessment/Plan Problem List: (1) Chronic pain ICD Codes: G89.29 - Other chronic pain SNOMED: 69016867 (2) CHF (congestive heart failure) ICD Codes: I50.9 - Heart failure, unspecified SNOMED: 77450575 (3) Morbid obesity ICD Codes: E66.01 - Morbid (severe) obesity due to excess calories SNOMED: 100512964 (4) ACS (acute coronary syndrome) ICD Codes: I24.9 - Acute ischemic heart disease, unspecified SNOMED: 421607759 (5) Chest pain ICD Codes: R07.9 - Chest pain, unspecified SNOMED: 51898514 (6) Leukocytosis ICD Codes: D72.829 - Elevated white blood cell count, unspecified SNOMED: 970134448, 178074966 Status: stable, progressing, tolerating diet Assessment/Plan ot pt diet pain control cbc bmp am dc plan snf Subjective Constitutional: Reports: weakness Allergies: Coded Allergies: KETOROLAC (Verified Allergy, Severe, 08/06/16) ASPIRIN (Verified Allergy, Intermediate, 08/06/16) CEPHALEXIN (Verified Allergy, Mild, 12/13/14) PEANUT (Verified Allergy, Unknown, 11/19/15) All Systems: reviewed and negative except above Subjective c/o gen pain Objective Last 24 Hour Vital Signs Date Time Temp Pulse Resp B/P Pulse Ox O2 Delivery O2 Flow Rate FiO2 08/07/16 12:00 104 08/07/16 11:33 98.2 99 19 151/75 94 Room Air 99 08/07/16 09:34 119/68 08/07/16 09:33 85 119/68 08/07/16 08:00 101 08/07/16 07:58 97.3 85 18 119/68 98 Room Air 85 08/07/16 07:06 Nasal Cannula 2.0 28 08/07/16 07:06 90 18 Nasal Cannula 2.0 28 08/07/16 07:06 98 Nasal Cannula 2.0 28 08/07/16 04:49 74 08/07/16 03:58 98.2 71 21 98/46 98 Nasal Cannula 2.0 08/07/16 00:13 97.9 79 19 106/48 79 Nasal Cannula 2.0 08/07/16 00:00 77 08/06/16 20:59 99 Nasal Cannula 2.0 28 08/06/16 20:59 Nasal Cannula 2.0 28 08/06/16 20:20 98.3 87 20 155/98 99 Nasal Cannula 2.0 08/06/16 20:00 96 08/06/16 16:00 97.0 82 18 120/82 98 Room Air 80 08/06/16 16:00 91 Intake and Output 08/06/16 08/07/16 19:00 07:00 Intake Total 230 ml 300 ml Balance 230 ml 300 ml Intake Oral 230 ml 300 ml # Voids 2 1 Laboratory Tests 08/07/16 06:05: White Blood Count 10.8, Red Blood Count 4.30L, Hemoglobin 13.2L, Hematocrit 39.8L, Mean Corpuscular Volume 93, Mean Corpuscular Hemoglobin 30.6, Mean Corpuscular Hemoglobin Concent 33.1, Red Cell Distribution Width 13.1, Platelet Count 253, Mean Platelet Volume 7.6, Neutrophils (%) (Auto) 64.3, Lymphocytes (% ) (Auto) 26.7, Monocytes (%) (Auto) 6.7, Eosinophils (%) (Auto) 1.6, Basophils ( %) (Auto) 0.6, Prothrombin Time 10.0, Prothromb Time International Ratio 1.0, Activated Partial Thromboplast Time 24, Troponin I < 0.30, C-Reactive Protein, Quantitative 2.3H, Triglycerides Level 180H, Cholesterol Level 162, LDL Cholesterol 93, HDL Cholesterol 33, Cholesterol/HDL Ratio 4.9H, Thyroid Stimulating Hormone (TSH) 0.846 Height (Feet): 5 Height (Inches): 10.00 Weight (Pounds): 337 General Appearance: alert EENT: normal ENT inspection Neck: normal alignment Cardiovascular: normal peripheral pulses, normal rate, regular rhythm Respiratory/Chest: chest wall non-tender, lungs clear, normal breath sounds Abdomen: normal bowel sounds, non tender, soft Extremities: normal inspection Edema: no edema noted Arm (L), no edema noted Arm (R), no edema noted Leg (L), no edema noted Leg (R), no edema noted Pedal (L), no edema noted Pedal (R), no edema noted Generalized Neurologic: responsive, motor weakness Skin: normal pigmentation, warm/dry MARQUEZ FOY Aug 07, 2016 13:56
--- NOTE | 2016-08-07 14:04 | Pulmonology Progress Note ---
Assessment/Plan Problems: (1) ACS (acute coronary syndrome) (2) CHF (congestive heart failure) (3) Morbid obesity (4) Osteosarcoma (5) Hepatitis C Assessment/Plan doing better chest pain better pain consult appreciated Subjective ROS Limited/Unobtainable: No Interval Events: pain is better controlled Allergies: Coded Allergies: KETOROLAC (Verified Allergy, Severe, 08/06/16) ASPIRIN (Verified Allergy, Intermediate, 08/06/16) CEPHALEXIN (Verified Allergy, Mild, 12/13/14) PEANUT (Verified Allergy, Unknown, 11/19/15) Objective Last 24 Hour Vital Signs Date Time Temp Pulse Resp B/P Pulse Ox O2 Delivery O2 Flow Rate FiO2 08/07/16 12:00 104 08/07/16 11:33 98.2 99 19 151/75 94 Room Air 99 08/07/16 09:34 119/68 08/07/16 09:33 85 119/68 08/07/16 08:00 101 08/07/16 07:58 97.3 85 18 119/68 98 Room Air 85 08/07/16 07:06 Nasal Cannula 2.0 28 08/07/16 07:06 90 18 Nasal Cannula 2.0 28 08/07/16 07:06 98 Nasal Cannula 2.0 28 08/07/16 04:49 74 08/07/16 03:58 98.2 71 21 98/46 98 Nasal Cannula 2.0 08/07/16 00:13 97.9 79 19 106/48 79 Nasal Cannula 2.0 08/07/16 00:00 77 08/06/16 20:59 99 Nasal Cannula 2.0 28 08/06/16 20:59 Nasal Cannula 2.0 28 08/06/16 20:20 98.3 87 20 155/98 99 Nasal Cannula 2.0 08/06/16 20:00 96 08/06/16 16:00 97.0 82 18 120/82 98 Room Air 80 08/06/16 16:00 91 Intake and Output 08/06/16 08/07/16 19:00 07:00 Intake Total 230 ml 300 ml Balance 230 ml 300 ml Intake Oral 230 ml 300 ml # Voids 2 1 General Appearance: WD/WN HEENT: normocephalic, anicteric Cardiovascular: normal peripheral pulses, regular rhythm Abdomen: normal bowel sounds, soft, non tender Genitourinary: normal external genitalia Skin: no rash Laboratory Tests 08/07/16 06:05: White Blood Count 10.8, Red Blood Count 4.30L, Hemoglobin 13.2L, Hematocrit 39.8L, Mean Corpuscular Volume 93, Mean Corpuscular Hemoglobin 30.6, Mean Corpuscular Hemoglobin Concent 33.1, Red Cell Distribution Width 13.1, Platelet Count 253, Mean Platelet Volume 7.6, Neutrophils (%) (Auto) 64.3, Lymphocytes (% ) (Auto) 26.7, Monocytes (%) (Auto) 6.7, Eosinophils (%) (Auto) 1.6, Basophils ( %) (Auto) 0.6, Prothrombin Time 10.0, Prothromb Time International Ratio 1.0, Activated Partial Thromboplast Time 24, Troponin I < 0.30, C-Reactive Protein, Quantitative 2.3H, Triglycerides Level 180H, Cholesterol Level 162, LDL Cholesterol 93, HDL Cholesterol 33, Cholesterol/HDL Ratio 4.9H, Thyroid Stimulating Hormone (TSH) 0.846 Current Medications Medications (Trade) Dose Ordered Sig/Robert Route PRN Reason Start Time Stop Time Status Last Admin Dose Admin Acetaminophen (Tylenol) 650 mg Q4H PRN ORAL FEVER 08/06/16 07:45 09/05/16 07:44 Albuterol/ Ipratropium (DuoNeb 0.5-3(2.5)mg/3ml) 3 ml Q4H PRN HHN Shortness of Breath 08/06/16 07:45 08/11/16 07:44 Amitriptyline HCl (Elavil) 25 mg BEDTIME ORAL 08/06/16 21:00 09/05/16 20:59 08/06/16 21:05 Amlodipine Besylate (Norvasc) 10 mg DAILY ORAL 08/06/16 10:00 09/05/16 09:59 08/07/16 09:33 Calcium Carbonate (Tums) 500 mg Q4H PRN ORAL dyspepsia 08/06/16 07:45 09/05/16 07:44 Carbamazepine (TEGretol) 300 mg Q12HR ORAL 08/06/16 10:00 09/05/16 09:59 08/07/16 09:34 Diltiazem HCl (Cardizem) 10 mg Q1H PRN IV heart rate more than 120, 08/06/16 07:45 09/05/16 07:44 Divalproex Sodium (Depakote ER) 1,000 mg EVERY 12 HOURS ORAL 08/06/16 10:00 09/05/16 09:59 08/07/16 09:35 Enalaprilat (Vasotec) 2.5 mg Q6H PRN IV sbp more than 160 08/06/16 07:45 09/05/16 07:44 Fentanyl (Duragesic) 1 patch Q72H TDERMAL 08/06/16 12:00 08/13/16 11:59 08/06/16 11:27 Fluoxetine HCl (PROzac) 20 mg DAILY ORAL 08/06/16 10:00 09/05/16 09:59 08/07/16 09:51 Heparin Sodium (Porcine) (Heparin 5000 units/ml) 5,000 units EVERY 12 HOURS SUBQ 08/06/16 10:00 09/05/16 09:59 08/07/16 09:41 Hydromorphone HCl (Dilaudid) 2 mg Q2H PRN IVP For Pain 08/06/16 23:15 08/13/16 23:14 08/07/16 13:14 Lisinopril (Prinivil) 20 mg DAILY ORAL 08/06/16 10:00 09/05/16 09:59 08/07/16 09:34 Methocarbamol (Robaxin) 750 mg QIDPRN PRN ORAL Muscle Spasm 08/06/16 08:30 09/05/16 08:29 Naloxone HCl (Narcan) 0.1 mg STAT PRN IV Sedation scale 3 or 4 08/06/16 11:00 09/05/16 10:59 Nitroglycerin (Ntg) 0.4 mg Q5M PRN SL Prn Chest Pain 08/06/16 07:45 09/05/16 07:44 Ondansetron HCl (Zofran) 4 mg Q6H PRN IVP Nausea & Vomiting 08/06/16 07:45 09/05/16 07:44 Oxycodone/ Acetaminophen (Percocet 10/325) 1 tab Q4H PRN ORAL moderate breakthrough pain 08/06/16 18:15 08/13/16 18:14 Pantoprazole (Protonix) 40 mg DAILY ORAL 08/06/16 10:00 09/05/16 09:59 08/07/16 09:32 Phenytoin (Dilantin) 250 mg DAILY ORAL 08/06/16 10:00 09/05/16 09:59 08/07/16 09:33 Polyethylene Glycol (Miralax) 17 gm DAILYPRN PRN ORAL Constipation 08/06/16 07:45 09/05/16 07:44 Pregabalin (Lyrica) 100 mg THREE TIMES A DAY ORAL 08/06/16 18:30 09/05/16 18:29 08/07/16 09:33 Temazepam (Restoril) 15 mg HSPRN PRN ORAL Insomnia 08/06/16 07:45 08/13/16 07:44 Topiramate (Topamax) 50 mg TWICE A DAY ORAL 08/06/16 10:00 09/05/16 09:59 08/07/16 09:35 Trazodone HCl (Desyrel) 100 mg BEDTIME ORAL 08/06/16 21:00 09/05/16 20:59 08/06/16 21:05 LAUREN OCHOA Aug 07, 2016 14:04
[2016-08-07 15:40] VITALS: BP 123/80
--- NOTE | 2016-08-07 16:40 | Infectious Diseases Prog Note ---
Assessment/Plan Problems: (1) Chest pain Assessment & Plan: rule out ACS, monitor trop, cardiology is following (2) CHF (congestive heart failure) Assessment & Plan: with exacerbation, continue diuresis, monitor UOP, and daily weight (3) Leukocytosis Assessment & Plan: rule out sepsis, await blood culture , monitor WBC Subjective Constitutional: Reports: no symptoms HEENT: Reports: no symptoms Respiratory: Reports: dry cough, shortness of breath Breasts: Reports: no symptoms Cardiovascular: Reports: no symptoms Gastrointestinal/Abdominal: Reports: no symptoms Genitourinary: Reports: no symptoms Neurologic: Reports: no symptoms Psychiatric: Reports: no symptoms Skin: Reports: no symptoms Endocrine: Reports: no symptoms Hematologic: Reports: no symptoms Allergies: Coded Allergies: KETOROLAC (Verified Allergy, Severe, 08/06/16) ASPIRIN (Verified Allergy, Intermediate, 08/06/16) CEPHALEXIN (Verified Allergy, Mild, 12/13/14) PEANUT (Verified Allergy, Unknown, 11/19/15) Objective Vital Signs Last 24 Hour Vital Signs Date Time Temp Pulse Resp B/P Pulse Ox O2 Delivery O2 Flow Rate FiO2 08/07/16 15:40 97.7 104 18 123/80 95 Room Air 104 08/07/16 12:00 104 08/07/16 11:33 98.2 99 19 151/75 94 Room Air 99 08/07/16 09:34 119/68 08/07/16 09:33 85 119/68 08/07/16 08:00 101 08/07/16 07:58 97.3 85 18 119/68 98 Room Air 85 08/07/16 07:06 Nasal Cannula 2.0 28 08/07/16 07:06 90 18 Nasal Cannula 2.0 28 08/07/16 07:06 98 Nasal Cannula 2.0 28 08/07/16 04:49 74 08/07/16 03:58 98.2 71 21 98/46 98 Nasal Cannula 2.0 08/07/16 00:13 97.9 79 19 106/48 79 Nasal Cannula 2.0 08/07/16 00:00 77 08/06/16 20:59 99 Nasal Cannula 2.0 28 08/06/16 20:59 Nasal Cannula 2.0 28 08/06/16 20:20 98.3 87 20 155/98 99 Nasal Cannula 2.0 08/06/16 20:00 96 Height (Feet): 5 Height (Inches): 10.00 Weight (Pounds): 337 General Appearance: WD/WN, no acute distress HEENT: normocephalic, atraumatic, anicteric, mucous membranes moist Respiratory/Chest: chest wall non-tender, no respiratory distress, no accessory muscle use, decreased breath sounds, crackles/rales Cardiovascular: normal peripheral pulses, normal rate, regular rhythm, no gallop/murmur, no JVD Abdomen: normal bowel sounds, soft, non tender, no organomegaly, non distended , no mass Extremities: no cyanosis, no clubbing Laboratory Tests Test 08/07/16 06:05 White Blood Count 10.8 K/UL (4.8-10.8) Red Blood Count 4.30 M/UL (4.70-6.10) L Hemoglobin 13.2 G/DL (14.2-18.0) L Hematocrit 39.8 % (42.0-52.0) L Mean Corpuscular Volume 93 FL (80-99) Mean Corpuscular Hemoglobin 30.6 PG (27.0-31.0) Mean Corpuscular Hemoglobin Concent 33.1 G/DL (32.0-36.0) Red Cell Distribution Width 13.1 % (11.6-14.8) Platelet Count 253 K/UL (150-450) Mean Platelet Volume 7.6 FL (6.5-10.1) Neutrophils (%) (Auto) 64.3 % (45.0-75.0) Lymphocytes (%) (Auto) 26.7 % (20.0-45.0) Monocytes (%) (Auto) 6.7 % (1.0-10.0) Eosinophils (%) (Auto) 1.6 % (0.0-3.0) Basophils (%) (Auto) 0.6 % (0.0-2.0) Prothrombin Time 10.0 SEC (9.30-11.50) Prothromb Time International Ratio 1.0 (0.9-1.1) Activated Partial Thromboplast Time 24 SEC (23-33) Troponin I < 0.30 ng/mL (<=0.30) C-Reactive Protein, Quantitative 2.3 mg/dL (< 0.5) H Triglycerides Level 180 mg/dL (< 150) H Cholesterol Level 162 mg/dL (< 200) LDL Cholesterol 93 mg/dL (60-99) HDL Cholesterol 33 mg/dL (> 60) Cholesterol/HDL Ratio 4.9 (3.3-4.4) H Thyroid Stimulating Hormone (TSH) 0.846 uIU/mL (0.300-4.500) Current Medications Medications (Trade) Dose Ordered Sig/Robert Route PRN Reason Start Time Stop Time Status Last Admin Dose Admin Acetaminophen (Tylenol) 650 mg Q4H PRN ORAL FEVER 08/06/16 07:45 09/05/16 07:44 Albuterol/ Ipratropium (DuoNeb 0.5-3(2.5)mg/3ml) 3 ml Q4H PRN HHN Shortness of Breath 08/06/16 07:45 08/11/16 07:44 Amitriptyline HCl (Elavil) 25 mg BEDTIME ORAL 08/06/16 21:00 09/05/16 20:59 08/06/16 21:05 Amlodipine Besylate (Norvasc) 10 mg DAILY ORAL 08/06/16 10:00 09/05/16 09:59 08/07/16 09:33 Calcium Carbonate (Tums) 500 mg Q4H PRN ORAL dyspepsia 08/06/16 07:45 09/05/16 07:44 Carbamazepine (TEGretol) 300 mg Q12HR ORAL 08/06/16 10:00 09/05/16 09:59 08/07/16 09:34 Diltiazem HCl (Cardizem) 10 mg Q1H PRN IV heart rate more than 120, 08/06/16 07:45 09/05/16 07:44 Divalproex Sodium (Depakote ER) 1,000 mg EVERY 12 HOURS ORAL 08/06/16 10:00 09/05/16 09:59 08/07/16 09:35 Enalaprilat (Vasotec) 2.5 mg Q6H PRN IV sbp more than 160 08/06/16 07:45 09/05/16 07:44 Fentanyl (Duragesic) 1 patch Q72H TDERMAL 08/06/16 12:00 08/13/16 11:59 08/06/16 11:27 Fluoxetine HCl (PROzac) 20 mg DAILY ORAL 08/06/16 10:00 09/05/16 09:59 08/07/16 09:51 Heparin Sodium (Porcine) (Heparin 5000 units/ml) 5,000 units EVERY 12 HOURS SUBQ 08/06/16 10:00 09/05/16 09:59 08/07/16 09:41 Hydromorphone HCl (Dilaudid) 2 mg Q2H PRN IVP For Pain 08/06/16 23:15 08/13/16 23:14 08/07/16 15:27 Lisinopril (Prinivil) 20 mg DAILY ORAL 08/06/16 10:00 09/05/16 09:59 08/07/16 09:34 Methocarbamol (Robaxin) 750 mg QIDPRN PRN ORAL Muscle Spasm 08/06/16 08:30 09/05/16 08:29 Naloxone HCl (Narcan) 0.1 mg STAT PRN IV Sedation scale 3 or 4 08/06/16 11:00 09/05/16 10:59 Nitroglycerin (Ntg) 0.4 mg Q5M PRN SL Prn Chest Pain 08/06/16 07:45 09/05/16 07:44 Ondansetron HCl (Zofran) 4 mg Q6H PRN IVP Nausea & Vomiting 08/06/16 07:45 09/05/16 07:44 Oxycodone/ Acetaminophen (Percocet 10/325) 1 tab Q4H PRN ORAL moderate breakthrough pain 08/06/16 18:15 08/13/16 18:14 Pantoprazole (Protonix) 40 mg DAILY ORAL 08/06/16 10:00 09/05/16 09:59 08/07/16 09:32 Phenytoin (Dilantin) 250 mg DAILY ORAL 08/06/16 10:00 09/05/16 09:59 08/07/16 09:33 Polyethylene Glycol (Miralax) 17 gm DAILYPRN PRN ORAL Constipation 08/06/16 07:45 09/05/16 07:44 Pregabalin (Lyrica) 100 mg THREE TIMES A DAY ORAL 08/06/16 18:30 09/05/16 18:29 08/07/16 09:33 Temazepam (Restoril) 15 mg HSPRN PRN ORAL Insomnia 08/06/16 07:45 08/13/16 07:44 Topiramate (Topamax) 50 mg TWICE A DAY ORAL 08/06/16 10:00 09/05/16 09:59 08/07/16 09:35 Trazodone HCl (Desyrel) 100 mg BEDTIME ORAL 08/06/16 21:00 09/05/16 20:59 08/06/16 21:05 Uri Tesfaye M.D. Aug 07, 2016 16:40
--- NOTE | 2016-08-07 19:45 | Consultation ---
DATE OF CONSULTATION: INFECTIOUS DISEASE CONSULTATION CONSULTING PHYSICIAN: Uri Tesfaye M.D. REQUESTING PHYSICIAN: Jeremiah Singh D.O. REASON FOR CONSULTATION: Leukocytosis, rule out sepsis. 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 with a chief complaint of chest pain and shortness of breath. The patient's symptom was started the day prior. Pain described as double deep ache in the mid sternal area. He also had swelling in both lower extremities. The patient had a chest x-ray, which showed pulmonary edema. His white count was found to be elevated, so I was consulted by the primary provider for possible antibiotics treatment for his leukocytosis and possible sepsis. PAST MEDICAL HISTORY: Significant for hypertension, chronic obstructive pulmonary disease, sarcoma of the right femur, GERD, bipolar disorder, schizoaffective disorder, anxiety depression, and seizure disorder. MEDICATIONS: Please refer to MAR for further details. ALLERGIES: He has cephalexin and peanut allergy. SOCIAL HISTORY: Unable to obtain. The patient is a poor historian. FAMILY HISTORY: Unable to obtain. LABORATORY DATA: Labs showed white count of 14.3 and hemoglobin 14.3. BUN of 9 and creatinine of 0.7. ALT of 45 and alkaline phosphatase of 149. IMAGING: Chest x-ray showed pulmonary vascular congestion. PHYSICAL EXAMINATION: VITAL SIGNS: Temperature 98.2 degrees, pulse 71, respirations 21, blood pressure 98/46, and pulse oximetry 98% on two liters nasal cannula. GENERAL: A middle-aged male, lying in bed, alert, comfortable, and not in distress. HEENT: Normocephalic and atraumatic. Normal oral mucosa. NECK: Supple. No lymphadenopathy. CARDIOVASCULAR: Regular rate and rhythm. No murmur. LUNGS: He had diminished breathing sounds at the bases with crackles and mild wheezing. ABDOMEN: Soft, nontender, and nondistended. EXTREMITIES: Edema +1. Poor distal pulse in both feet. ASSESSMENT AND PLAN: 1. Chest pain, rule out acute coronary syndrome. Monitor troponin level. Consult Cardiology. May need a stress test. Further management as per Cardiology. 2. Congestive heart failure with possible exacerbation. Recommend diuresis, monitor chest x-ray, obtain echocardiogram, and consult Cardiology. 3. Leukocytosis, rule out sepsis. We will send blood culture. Await results. Hold broad-spectrum antibiotics for now. Monitor white blood cells. Uri Tesfaye M.D. DR: AL JOB#: [id number] CC:
[2016-08-07 20:00] VITALS: BP 134/88
[2016-08-07] MEDS: TraZODone 100mg tab ORAL SCH (20:47)
[2016-08-08] VITALS: BP 109/63
[2016-08-08 04:00] VITALS: BP 110/62
--- NOTE | 2016-08-08 08:08 | General Progress Note ---
Assessment/Plan Problem List: (1) Chronic pain ICD Codes: G89.29 - Other chronic pain SNOMED: 33980600 (2) CHF (congestive heart failure) ICD Codes: I50.9 - Heart failure, unspecified SNOMED: 91448965 (3) Morbid obesity ICD Codes: E66.01 - Morbid (severe) obesity due to excess calories SNOMED: 516015786 (4) ACS (acute coronary syndrome) ICD Codes: I24.9 - Acute ischemic heart disease, unspecified SNOMED: 986954387 (5) Chest pain ICD Codes: R07.9 - Chest pain, unspecified SNOMED: 85871371 (6) Leukocytosis ICD Codes: D72.829 - Elevated white blood cell count, unspecified SNOMED: 108912752, 570417196 Status: stable, progressing, tolerating diet Assessment/Plan ot pt diet pain control cbc bmp am dc plan snf Subjective Constitutional: Reports: weakness Allergies: Coded Allergies: KETOROLAC (Verified Allergy, Severe, 08/06/16) ASPIRIN (Verified Allergy, Intermediate, 08/06/16) CEPHALEXIN (Verified Allergy, Mild, 12/13/14) PEANUT (Verified Allergy, Unknown, 11/19/15) All Systems: reviewed and negative except above Subjective c/o gen pain Objective Last 24 Hour Vital Signs Date Time Temp Pulse Resp B/P Pulse Ox O2 Delivery O2 Flow Rate FiO2 08/08/16 04:00 95.1 88 20 110/62 100 Room Air 08/08/16 00:00 95.0 86 20 109/63 Nasal Cannula 2.0 08/07/16 20:23 96 Room Air 21 08/07/16 20:23 Room Air 08/07/16 20:22 94 18 Room Air 21 08/07/16 20:00 97.5 96 20 134/88 96 Room Air 08/07/16 15:40 97.7 104 18 123/80 95 Room Air 104 08/07/16 12:00 104 08/07/16 11:33 98.2 99 19 151/75 94 Room Air 99 08/07/16 09:34 119/68 08/07/16 09:33 85 119/68 Intake and Output 08/07/16 08/08/16 19:00 07:00 Intake Total 840 ml Output Total 850 ml Balance 840 ml -850 ml Intake Oral 840 ml Output Urine Total 850 ml Laboratory Tests 08/08/16 07:10: White Blood Count [Pending], Red Blood Count [Pending], Hemoglobin [Pending], Hematocrit [Pending], Mean Corpuscular Volume [Pending], Mean Corpuscular Hemoglobin [Pending], Mean Corpuscular Hemoglobin Concent [Pending], Red Cell Distribution Width [Pending], Platelet Count [Pending], Mean Platelet Volume [ Pending], Neutrophils (%) (Auto) [Pending], Lymphocytes (%) (Auto) [Pending], Monocytes (%) (Auto) [Pending], Eosinophils (%) (Auto) [Pending], Basophils (%) (Auto) [Pending], Sodium Level [Pending], Potassium Level [Pending], Chloride Level [Pending], Carbon Dioxide Level [Pending], Blood Urea Nitrogen [Pending], Creatinine [Pending], Estimat Glomerular Filtration Rate [Pending], Glucose Level [Pending], Calcium Level [Pending], Troponin I [Pending] Height (Feet): 5 Height (Inches): 10.00 Weight (Pounds): 337 General Appearance: alert EENT: normal ENT inspection Neck: normal alignment Cardiovascular: normal peripheral pulses, normal rate, regular rhythm Respiratory/Chest: chest wall non-tender, lungs clear, normal breath sounds Abdomen: normal bowel sounds, non tender, soft Extremities: normal inspection Edema: no edema noted Arm (L), no edema noted Arm (R), no edema noted Leg (L), no edema noted Leg (R), no edema noted Pedal (L), no edema noted Pedal (R), no edema noted Generalized Neurologic: responsive, motor weakness Skin: normal pigmentation, warm/dry MARQUEZ FOY Aug 08, 2016 08:08
[2016-08-08 08:23] LABS: TROPONIN I < 0.30 ng/mL (<=0.30)
[2016-08-08 08:39] VITALS: BP 143/99
[2016-08-08 08:41] LABS: ANION GAP 17 (5-15); CALCIUM 8.8 mg/dL (8.6-10.2); CARBON DIOXIDE 24 mEQ/L (20-30); CHLORIDE 99 mEQ/L (98-107); CREATININE 0.6 mg/dL (0.7-1.2); GLOMERULAR FILTRATION RATE > 60 mL/min (>60); HEMOLYSIS 6; POTASSIUM 4.5 mEQ/L (3.4-4.9); SODIUM 140 mEQ/L (135-145)
[2016-08-08 08:58] LABS: BASOPHILS % (AUTO) 0.8 % (0.0-2.0); EOSINOPHILS % (AUTO) 1.5 % (0.0-3.0); LYMPHOCYTES % (AUTO) 29.5 % (20.0-45.0); MEAN CORPUSCULAR HEMOGLOBIN 30.8 PG (27.0-31.0); MEAN CORPUSCULAR VOLUME 93 FL (80-99); MEAN PLATELET VOLUME 7.7 FL (6.5-10.1); MONOCYTES % (AUTO) 5.9 % (1.0-10.0); NEUTROPHILS % (AUTO) 62.3 % (45.0-75.0); PLATELET COUNT 208 K/UL (150-450); RED BLOOD COUNT 4.17 M/UL (4.70-6.10); RED CELL DISTRIBUTION WIDTH 12.6 % (11.6-14.8); WHITE BLOOD COUNT 8.7 K/UL (4.8-10.8)
[2016-08-08] MEDS: Lyrica 50mg cap ORAL SCH ×3 (09:00→18:00)
[2016-08-08] MEDS: Phenytoin Susp 100mg/4ml ORAL SCH (09:10)
[2016-08-08] MEDS: Depakote ER 500mg tab ORAL SCH ×2 (09:11→20:46)
[2016-08-08] MEDS: Lisinopril 20mg tab ORAL SCH (09:12)
[2016-08-08] MEDS: carBAMazepine 200mg tab ORAL SCH ×2 (09:15→20:45)
[2016-08-08] MEDS: Heparin 5000 units/ml inj SUBQ SCH ×2 (09:16→20:47)
[2016-08-08] MEDS: Topiramate 100mg tab ORAL SCH ×2 (09:18→18:20)
[2016-08-08 12:00] VITALS: BP 137/80
--- NOTE | 2016-08-08 13:48 | Infectious Diseases Prog Note ---
Assessment/Plan Problems: (1) Chest pain Assessment & Plan: rule out ACS, monitor trop, cardiology is following (2) CHF (congestive heart failure) Assessment & Plan: with exacerbation, continue diuresis, monitor UOP, and daily weight (3) Leukocytosis Assessment & Plan: resolved, suspect dehydration related, await blood culture , monitor WBC Subjective Constitutional: Reports: no symptoms HEENT: Reports: no symptoms Respiratory: Reports: dry cough Breasts: Reports: no symptoms Cardiovascular: Reports: no symptoms Gastrointestinal/Abdominal: Reports: no symptoms Genitourinary: Reports: no symptoms Neurologic: Reports: no symptoms Psychiatric: Reports: no symptoms Skin: Reports: no symptoms Endocrine: Reports: no symptoms Allergies: Coded Allergies: KETOROLAC (Verified Allergy, Severe, 08/06/16) ASPIRIN (Verified Allergy, Intermediate, 08/06/16) CEPHALEXIN (Verified Allergy, Mild, 12/13/14) PEANUT (Verified Allergy, Unknown, 11/19/15) Objective Vital Signs Last 24 Hour Vital Signs Date Time Temp Pulse Resp B/P Pulse Ox O2 Delivery O2 Flow Rate FiO2 08/08/16 12:00 97.9 93 19 137/80 98 Room Air 08/08/16 09:15 93 143/99 08/08/16 09:12 143/99 08/08/16 08:39 98.1 93 18 143/99 95 Room Air 08/08/16 07:00 95 Room Air 21 08/08/16 07:00 92 18 Room Air 21 08/08/16 07:00 Room Air 08/08/16 04:00 95.1 88 20 110/62 100 Room Air 08/08/16 00:00 95.0 86 20 109/63 Nasal Cannula 2.0 08/07/16 20:23 96 Room Air 21 08/07/16 20:23 Room Air 08/07/16 20:22 94 18 Room Air 21 08/07/16 20:00 97.5 96 20 134/88 96 Room Air 08/07/16 15:40 97.7 104 18 123/80 95 Room Air 104 Height (Feet): 5 Height (Inches): 10.00 Weight (Pounds): 337 General Appearance: WD/WN, no acute distress HEENT: normocephalic, atraumatic, anicteric, mucous membranes moist Respiratory/Chest: chest wall non-tender, lungs clear, normal breath sounds, no respiratory distress, no accessory muscle use, decreased breath sounds Cardiovascular: normal peripheral pulses, normal rate, regular rhythm Abdomen: normal bowel sounds, soft, non tender, no organomegaly, non distended , no mass Extremities: no cyanosis, no clubbing Skin: no rash, no lesions Laboratory Tests Test 08/08/16 07:10 White Blood Count 8.7 K/UL (4.8-10.8) Red Blood Count 4.17 M/UL (4.70-6.10) L Hemoglobin 12.8 G/DL (14.2-18.0) L Hematocrit 39.0 % (42.0-52.0) L Mean Corpuscular Volume 93 FL (80-99) Mean Corpuscular Hemoglobin 30.8 PG (27.0-31.0) Mean Corpuscular Hemoglobin Concent 33.0 G/DL (32.0-36.0) Red Cell Distribution Width 12.6 % (11.6-14.8) Platelet Count 208 K/UL (150-450) Mean Platelet Volume 7.7 FL (6.5-10.1) Neutrophils (%) (Auto) 62.3 % (45.0-75.0) Lymphocytes (%) (Auto) 29.5 % (20.0-45.0) Monocytes (%) (Auto) 5.9 % (1.0-10.0) Eosinophils (%) (Auto) 1.5 % (0.0-3.0) Basophils (%) (Auto) 0.8 % (0.0-2.0) Sodium Level 140 mEQ/L (135-145) Potassium Level 4.5 mEQ/L (3.4-4.9) Chloride Level 99 mEQ/L (98-107) Carbon Dioxide Level 24 mEQ/L (20-30) Anion Gap 17 (5-15) H Blood Urea Nitrogen 11 mg/dL (7-23) Creatinine 0.6 mg/dL (0.7-1.2) L Estimat Glomerular Filtration Rate > 60 mL/min (>60) Glucose Level 196 mg/dL (74-106) H Calcium Level 8.8 mg/dL (8.6-10.2) Troponin I < 0.30 ng/mL (<=0.30) Current Medications Medications (Trade) Dose Ordered Sig/Robert Route PRN Reason Start Time Stop Time Status Last Admin Dose Admin Acetaminophen (Tylenol) 650 mg Q4H PRN ORAL FEVER 08/06/16 07:45 09/05/16 07:44 Albuterol/ Ipratropium (DuoNeb 0.5-3(2.5)mg/3ml) 3 ml Q4H PRN HHN Shortness of Breath 08/06/16 07:45 08/11/16 07:44 Amitriptyline HCl (Elavil) 25 mg BEDTIME ORAL 08/06/16 21:00 09/05/16 20:59 08/07/16 20:46 Amlodipine Besylate (Norvasc) 10 mg DAILY ORAL 08/06/16 10:00 09/05/16 09:59 08/08/16 09:15 Calcium Carbonate (Tums) 500 mg Q4H PRN ORAL dyspepsia 08/06/16 07:45 09/05/16 07:44 Carbamazepine (TEGretol) 300 mg Q12HR ORAL 08/06/16 10:00 09/05/16 09:59 08/08/16 09:15 Diltiazem HCl (Cardizem) 10 mg Q1H PRN IV heart rate more than 120, 08/06/16 07:45 09/05/16 07:44 Divalproex Sodium (Depakote ER) 1,000 mg EVERY 12 HOURS ORAL 08/06/16 10:00 09/05/16 09:59 08/08/16 09:11 Enalaprilat (Vasotec) 2.5 mg Q6H PRN IV sbp more than 160 08/06/16 07:45 09/05/16 07:44 Fentanyl (Duragesic) 1 patch Q72H TDERMAL 08/06/16 12:00 08/13/16 11:59 08/06/16 11:27 Fluoxetine HCl (PROzac) 20 mg DAILY ORAL 08/06/16 10:00 09/05/16 09:59 08/08/16 09:11 Heparin Sodium (Porcine) (Heparin 5000 units/ml) 5,000 units EVERY 12 HOURS SUBQ 08/06/16 10:00 09/05/16 09:59 08/08/16 09:16 Hydromorphone HCl (Dilaudid) 2 mg Q2H PRN IVP For Pain 08/06/16 23:15 08/13/16 23:14 08/08/16 11:36 Lisinopril (Prinivil) 20 mg DAILY ORAL 08/06/16 10:00 09/05/16 09:59 08/08/16 09:12 Methocarbamol (Robaxin) 750 mg QIDPRN PRN ORAL Muscle Spasm 08/06/16 08:30 09/05/16 08:29 Naloxone HCl (Narcan) 0.1 mg STAT PRN IV Sedation scale 3 or 4 08/06/16 11:00 09/05/16 10:59 Nitroglycerin (Ntg) 0.4 mg Q5M PRN SL Prn Chest Pain 08/06/16 07:45 09/05/16 07:44 Ondansetron HCl (Zofran) 4 mg Q6H PRN IVP Nausea & Vomiting 08/06/16 07:45 09/05/16 07:44 Oxycodone/ Acetaminophen (Percocet 10/325) 1 tab Q4H PRN ORAL moderate breakthrough pain 08/06/16 18:15 08/13/16 18:14 Pantoprazole (Protonix) 40 mg DAILY ORAL 08/06/16 10:00 09/05/16 09:59 08/08/16 09:14 Phenytoin (Dilantin) 250 mg DAILY ORAL 08/06/16 10:00 09/05/16 09:59 08/08/16 09:10 Polyethylene Glycol (Miralax) 17 gm DAILYPRN PRN ORAL Constipation 08/06/16 07:45 09/05/16 07:44 Pregabalin (Lyrica) 100 mg THREE TIMES A DAY ORAL 08/06/16 18:30 09/05/16 18:29 08/07/16 09:33 Temazepam (Restoril) 15 mg HSPRN PRN ORAL Insomnia 08/06/16 07:45 08/13/16 07:44 Topiramate (Topamax) 50 mg TWICE A DAY ORAL 08/06/16 10:00 09/05/16 09:59 08/08/16 09:18 Trazodone HCl (Desyrel) 100 mg BEDTIME ORAL 08/06/16 21:00 09/05/16 20:59 08/07/16 20:47 Uri Tesfaye M.D. Aug 08, 2016 13:48
--- NOTE | 2016-08-08 15:30 | Consultation ---
DATE OF CONSULTATION: 08/08/2016 NOTE: POOR AUDIO QUALITY PSYCHOTHERAPY CONSULTATION PROGRESS NOTE: CONSULTING PHYSICIAN: Mark Crews M.D. TREATING ATTENDING PHYSICIAN: Jeremiah Singh M.D HISTORY OF PRESENT ILLNESS: The patient is a 40-year-old male patient with history of . The patient presented to [facility] with , dementia, , depression. The patient in the past. History of bipolar disorder and he has been treated with psychotropic medication. The patient states that he also has an anxiety, difficulty with treatment. Denies suicidal or homicidal thoughts of ideation. Denies auditory or visual hallucinations. PAST MEDICAL HISTORY: The patient has a history of CHF, encephalopathy, COPD, hypertension, and sleep apnea. ALLERGIES: The patient is allergic to Keflex and aspirin. SUBSTANCE ABUSE HISTORY: The patient states that he does have history of smoking in the past . Denies any history of alcohol use, illicit substance use. PSYCHIATRIC HISTORY: The patient has a history of bipolar disorder, and he has been treated with psychotropic medications in the past. SOCIAL HISTORY: The patient states that he is criminal in the past. . The patient is financially sustained through Medicare and [employer]. MENTAL STATUS EXAMINATION: The patient is alert and oriented x2, to person and place. Mood is anxious. Affect is congruent. Thought process is disorganized. Thought content . The patient has poor attention and concentration. Poor insight, judgment, and impulse control. DIAGNOSES: Goldsmith I Bipolar disorder, recurrence. Goldsmith II Deferred. Goldsmith III Per History and Physical. Goldsmith IV Problems with social environment. PLAN: This clinician has assessed the patient today. The patient is receiving reality orientation and psychotherapy. . Continue with medication management and behavioral management. This clinician has reviewed the patient's chart. Discussed the treatment with nursing staff. Mark Crews PsyD. DR: Palak JOB#: [id number] CC:
[2016-08-08 16:00] VITALS: BP 138/74
--- NOTE | 2016-08-08 16:33 | Cardiac Electrophysiology PN ---
Subjective Subjective [id number] Objective Last 24 Hour Vital Signs Date Time Temp Pulse Resp B/P Pulse Ox O2 Delivery O2 Flow Rate FiO2 08/08/16 16:00 85 18 138/74 Nasal Cannula 2.0 98 08/08/16 12:00 97.9 93 19 137/80 98 Room Air 08/08/16 09:15 93 143/99 08/08/16 09:12 143/99 08/08/16 08:39 98.1 93 18 143/99 95 Room Air 08/08/16 08:00 93 08/08/16 07:00 95 Room Air 21 08/08/16 07:00 92 18 Room Air 21 08/08/16 07:00 Room Air 08/08/16 04:00 95.1 88 20 110/62 100 Room Air 08/08/16 00:00 95.0 86 20 109/63 Nasal Cannula 2.0 08/07/16 20:23 96 Room Air 21 08/07/16 20:23 Room Air 08/07/16 20:22 94 18 Room Air 21 08/07/16 20:00 97.5 96 20 134/88 96 Room Air Intake and Output 08/07/16 08/08/16 19:00 07:00 Intake Total 840 ml Output Total 850 ml Balance 840 ml -850 ml Intake Oral 840 ml Output Urine Total 850 ml Laboratory Tests Test 08/08/16 07:10 White Blood Count 8.7 K/UL (4.8-10.8) Red Blood Count 4.17 M/UL (4.70-6.10) L Hemoglobin 12.8 G/DL (14.2-18.0) L Hematocrit 39.0 % (42.0-52.0) L Mean Corpuscular Volume 93 FL (80-99) Mean Corpuscular Hemoglobin 30.8 PG (27.0-31.0) Mean Corpuscular Hemoglobin Concent 33.0 G/DL (32.0-36.0) Red Cell Distribution Width 12.6 % (11.6-14.8) Platelet Count 208 K/UL (150-450) Mean Platelet Volume 7.7 FL (6.5-10.1) Neutrophils (%) (Auto) 62.3 % (45.0-75.0) Lymphocytes (%) (Auto) 29.5 % (20.0-45.0) Monocytes (%) (Auto) 5.9 % (1.0-10.0) Eosinophils (%) (Auto) 1.5 % (0.0-3.0) Basophils (%) (Auto) 0.8 % (0.0-2.0) Sodium Level 140 mEQ/L (135-145) Potassium Level 4.5 mEQ/L (3.4-4.9) Chloride Level 99 mEQ/L (98-107) Carbon Dioxide Level 24 mEQ/L (20-30) Anion Gap 17 (5-15) H Blood Urea Nitrogen 11 mg/dL (7-23) Creatinine 0.6 mg/dL (0.7-1.2) L Estimat Glomerular Filtration Rate > 60 mL/min (>60) Glucose Level 196 mg/dL (74-106) H Calcium Level 8.8 mg/dL (8.6-10.2) Troponin I < 0.30 ng/mL (<=0.30) GAEL MAXWELL Aug 08, 2016 16:33
--- NOTE | 2016-08-08 19:00 | Pulmonology Progress Note ---
Assessment/Plan Problems: (1) ACS (acute coronary syndrome) (2) CHF (congestive heart failure) (3) Morbid obesity (4) Osteosarcoma (5) Hepatitis C Assessment/Plan doing better chest pain better pain consult appreciated all labs and noted reviewed dc planing Subjective ROS Limited/Unobtainable: No Constitutional: Reports: no symptoms HEENT: Repors: no symptoms Allergies: Coded Allergies: KETOROLAC (Verified Allergy, Severe, 08/06/16) ASPIRIN (Verified Allergy, Intermediate, 08/06/16) CEPHALEXIN (Verified Allergy, Mild, 12/13/14) PEANUT (Verified Allergy, Unknown, 11/19/15) Objective Last 24 Hour Vital Signs Date Time Temp Pulse Resp B/P Pulse Ox O2 Delivery O2 Flow Rate FiO2 08/08/16 16:00 85 18 138/74 Nasal Cannula 2.0 98 08/08/16 15:57 84 08/08/16 12:00 97.9 93 19 137/80 98 Room Air 08/08/16 12:00 90 08/08/16 09:15 93 143/99 08/08/16 09:12 143/99 08/08/16 08:39 98.1 93 18 143/99 95 Room Air 08/08/16 08:00 93 08/08/16 07:00 95 Room Air 21 08/08/16 07:00 92 18 Room Air 21 08/08/16 07:00 Room Air 08/08/16 04:00 95.1 88 20 110/62 100 Room Air 08/08/16 00:00 95.0 86 20 109/63 Nasal Cannula 2.0 08/07/16 20:23 96 Room Air 21 08/07/16 20:23 Room Air 08/07/16 20:22 94 18 Room Air 21 08/07/16 20:00 97.5 96 20 134/88 96 Room Air Intake and Output 08/07/16 08/08/16 19:00 07:00 Intake Total 840 ml Output Total 850 ml Balance 840 ml -850 ml Intake Oral 840 ml Output Urine Total 850 ml Objective General Appearance: WD/WN HEENT: normocephalic, anicteric Cardiovascular: normal peripheral pulses, regular rhythm Abdomen: normal bowel sounds, soft, non tender Genitourinary: normal external genitalia Skin: no rash Laboratory Tests 08/08/16 07:10: White Blood Count 8.7, Red Blood Count 4.17L, Hemoglobin 12.8L, Hematocrit 39.0L , Mean Corpuscular Volume 93, Mean Corpuscular Hemoglobin 30.8, Mean Corpuscular Hemoglobin Concent 33.0, Red Cell Distribution Width 12.6, Platelet Count 208, Mean Platelet Volume 7.7, Neutrophils (%) (Auto) 62.3, Lymphocytes (% ) (Auto) 29.5, Monocytes (%) (Auto) 5.9, Eosinophils (%) (Auto) 1.5, Basophils ( %) (Auto) 0.8, Sodium Level 140, Potassium Level 4.5, Chloride Level 99, Carbon Dioxide Level 24, Anion Gap 17H, Blood Urea Nitrogen 11, Creatinine 0.6L, Estimat Glomerular Filtration Rate > 60, Glucose Level 196H, Calcium Level 8.8, Troponin I < 0.30 Current Medications Medications (Trade) Dose Ordered Sig/Robert Route PRN Reason Start Time Stop Time Status Last Admin Dose Admin Acetaminophen (Tylenol) 650 mg Q4H PRN ORAL FEVER 08/06/16 07:45 09/05/16 07:44 Albuterol/ Ipratropium (DuoNeb 0.5-3(2.5)mg/3ml) 3 ml Q4H PRN HHN Shortness of Breath 08/06/16 07:45 08/11/16 07:44 Amitriptyline HCl (Elavil) 25 mg BEDTIME ORAL 08/06/16 21:00 09/05/16 20:59 08/07/16 20:46 Amlodipine Besylate (Norvasc) 10 mg DAILY ORAL 08/06/16 10:00 09/05/16 09:59 08/08/16 09:15 Calcium Carbonate (Tums) 500 mg Q4H PRN ORAL dyspepsia 08/06/16 07:45 09/05/16 07:44 Carbamazepine (TEGretol) 300 mg Q12HR ORAL 08/06/16 10:00 09/05/16 09:59 08/08/16 09:15 Diltiazem HCl (Cardizem) 10 mg Q1H PRN IV heart rate more than 120, 08/06/16 07:45 09/05/16 07:44 Divalproex Sodium (Depakote ER) 1,000 mg EVERY 12 HOURS ORAL 08/06/16 10:00 09/05/16 09:59 08/08/16 09:11 Enalaprilat (Vasotec) 2.5 mg Q6H PRN IV sbp more than 160 08/06/16 07:45 09/05/16 07:44 Fentanyl (Duragesic) 1 patch Q72H TDERMAL 08/06/16 12:00 08/13/16 11:59 08/06/16 11:27 Fluoxetine HCl (PROzac) 20 mg DAILY ORAL 08/06/16 10:00 09/05/16 09:59 08/08/16 09:11 Heparin Sodium (Porcine) (Heparin 5000 units/ml) 5,000 units EVERY 12 HOURS SUBQ 08/06/16 10:00 09/05/16 09:59 08/08/16 09:16 Hydromorphone HCl (Dilaudid) 2 mg Q2H PRN IVP For Pain 08/06/16 23:15 08/13/16 23:14 08/08/16 18:49 Lisinopril (Prinivil) 20 mg DAILY ORAL 08/06/16 10:00 09/05/16 09:59 08/08/16 09:12 Methocarbamol (Robaxin) 750 mg QIDPRN PRN ORAL Muscle Spasm 08/06/16 08:30 09/05/16 08:29 Naloxone HCl (Narcan) 0.1 mg STAT PRN IV Sedation scale 3 or 4 08/06/16 11:00 09/05/16 10:59 Nitroglycerin (Ntg) 0.4 mg Q5M PRN SL Prn Chest Pain 08/06/16 07:45 09/05/16 07:44 Ondansetron HCl (Zofran) 4 mg Q6H PRN IVP Nausea & Vomiting 08/06/16 07:45 09/05/16 07:44 Oxycodone/ Acetaminophen (Percocet 10/325) 1 tab Q4H PRN ORAL moderate breakthrough pain 08/06/16 18:15 08/13/16 18:14 Pantoprazole (Protonix) 40 mg DAILY ORAL 08/06/16 10:00 09/05/16 09:59 08/08/16 09:14 Phenytoin (Dilantin) 250 mg DAILY ORAL 08/06/16 10:00 09/05/16 09:59 08/08/16 09:10 Polyethylene Glycol (Miralax) 17 gm DAILYPRN PRN ORAL Constipation 08/06/16 07:45 09/05/16 07:44 Pregabalin (Lyrica) 100 mg THREE TIMES A DAY ORAL 08/06/16 18:30 09/05/16 18:29 08/07/16 09:33 Temazepam (Restoril) 15 mg HSPRN PRN ORAL Insomnia 08/06/16 07:45 08/13/16 07:44 Topiramate (Topamax) 50 mg TWICE A DAY ORAL 08/06/16 10:00 09/05/16 09:59 08/08/16 18:20 Trazodone HCl (Desyrel) 100 mg BEDTIME ORAL 08/06/16 21:00 09/05/16 20:59 08/07/16 20:47 LAUREN OCHOA Aug 08, 2016 19:00
[2016-08-08 20:00] VITALS: BP 149/99
[2016-08-08] MEDS: TraZODone 100mg tab ORAL SCH (20:45)
[2016-08-09] VITALS: BP 139/85
--- NOTE | 2016-08-09 01:30 | Consultation ---
DATE OF CONSULTATION: 08/08/2016 CARDIOLOGY CONSULTATION CONSULTING PHYSICIAN: Chevy Rosenthal M.D. REFERRING PHYSICIAN: Jeremiah Singh D.O. REASON FOR CONSULTATION: Chest pain. HISTORY OF PRESENT ILLNESS: The patient is a 40-year-old morbidly obese gentleman with a history of hypertension, bipolar disorder as well as history of COPD, and of the right femur, who came to the emergency room complaining of chest pain and shortness of breath from intermediate. The patient has the pain, it was midsternal. The patient also had swelling of bilateral lower extremities. The patient's EKG was normal. However, echocardiogram was obtained with difficultly due to poor acoustic windows and the patient's body habitus. The left ventricular systolic function was normal to the extent visualized. PAST MEDICAL HISTORY: Seizure disorder. MEDICATIONS: Per reconciliation. ALLERGIES: He is allergic to cephalexin and peanut. REVIEW OF SYSTEMS: His review of systems was negative other than what was mentioned in history of present illness. PHYSICAL EXAMINATION: VITAL SIGNS: Show blood pressure 138/74, pulse 84, respiratory rate 18, and temperature 97.9 degrees. HEAD AND NECK: Shows no JVD. LUNGS: Clear. CARDIOVASCULAR: Shows regular S1 and S2 with no gallop or murmur. ABDOMEN: Soft and nontender. Obese. EXTREMITIES: There is 1+ pitting edema. LABORATORY DATA: Show white count of 8.2, hemoglobin 12.8, hematocrit 39, and platelet count of 208,000. Sodium 140, potassium 4.5, BUN of 11, creatinine 0.6, and glucose of 196. Troponin is negative x3. ASSESSMENT AND PLAN: 1. Atypical chest pain. The patient was ruled out for myocardial infarction. His EKG is nonischemic and his echocardiogram showed normal left ventricular systolic function. Currently, the patient does not have any chest pain. We can schedule the patient for stress test. It can be done as an inpatient or as an outpatient. 2. Hypertension. Continue Norvasc 10 mg daily and lisinopril 20 mg daily. 3. Chronic obstructive pulmonary disease. 4. Psychosis on Desyrel and Elavil. 5. Seizure disorder, on Tegretol. Thank you very much, Dr. Singh, for allowing me to participate in the care of this patient. Please do not hesitate to contact me if you have any questions regarding my evaluation. Chevy Rosenthal M.D. DR: ART JOB#: [id number] CC:
[2016-08-09 04:00] VITALS: BP 139/93
[2016-08-09 08:00] VITALS: BP 145/97
--- NOTE | 2016-08-09 08:25 | General Progress Note ---
Assessment/Plan Problem List: (1) Chronic pain ICD Codes: G89.29 - Other chronic pain SNOMED: 39708229 (2) CHF (congestive heart failure) ICD Codes: I50.9 - Heart failure, unspecified SNOMED: 27591118 (3) Morbid obesity ICD Codes: E66.01 - Morbid (severe) obesity due to excess calories SNOMED: 500549402 (4) ACS (acute coronary syndrome) ICD Codes: I24.9 - Acute ischemic heart disease, unspecified SNOMED: 336698252 (5) Chest pain ICD Codes: R07.9 - Chest pain, unspecified SNOMED: 54092027 (6) Leukocytosis ICD Codes: D72.829 - Elevated white blood cell count, unspecified SNOMED: 786712838, 210826407 Status: stable, progressing, tolerating diet Assessment/Plan ot pt diet pain control cbc bmp am dc plan snf Subjective Constitutional: Reports: weakness Allergies: Coded Allergies: KETOROLAC (Verified Allergy, Severe, 08/06/16) ASPIRIN (Verified Allergy, Intermediate, 08/06/16) CEPHALEXIN (Verified Allergy, Mild, 12/13/14) PEANUT (Verified Allergy, Unknown, 11/19/15) All Systems: reviewed and negative except above Subjective c/o gen pain Objective Last 24 Hour Vital Signs Date Time Temp Pulse Resp B/P Pulse Ox O2 Delivery O2 Flow Rate FiO2 08/09/16 08:03 Room Air 08/09/16 08:03 94 Room Air 08/09/16 08:02 89 20 Room Air 08/09/16 04:00 97.9 94 20 139/93 94 Nasal Cannula 2.0 08/09/16 04:00 86 08/09/16 00:00 101 08/09/16 00:00 98.1 102 20 139/85 98 Nasal Cannula 2.0 08/08/16 22:01 95 08/08/16 20:00 95 08/08/16 20:00 98.1 98 20 149/99 98 08/08/16 19:27 Nasal Cannula 2.0 28 08/08/16 19:27 98 Nasal Cannula 2.0 28 08/08/16 19:26 99 20 Nasal Cannula 2.0 28 08/08/16 19:23 99 20 99 Nasal Cannula 2.0 28 08/08/16 19:21 28 08/08/16 19:20 99 20 99 Nasal Cannula 2.0 28 08/08/16 19:16 99 20 98 Nasal Cannula 2.0 28 08/08/16 16:00 85 18 138/74 Nasal Cannula 2.0 98 08/08/16 15:57 84 08/08/16 12:00 97.9 93 19 137/80 98 Room Air 08/08/16 12:00 90 08/08/16 09:15 93 143/99 08/08/16 09:12 143/99 08/08/16 08:39 98.1 93 18 143/99 95 Room Air Intake and Output 08/08/16 08/09/16 19:00 07:00 Intake Total 480 ml Balance 480 ml Intake Oral 480 ml # Voids 2 Height (Feet): 5 Height (Inches): 10.00 Weight (Pounds): 337 General Appearance: alert EENT: normal ENT inspection Neck: normal alignment Cardiovascular: normal peripheral pulses, normal rate, regular rhythm Respiratory/Chest: chest wall non-tender, lungs clear, normal breath sounds Abdomen: normal bowel sounds, non tender, soft Extremities: normal inspection Edema: no edema noted Arm (L), no edema noted Arm (R), no edema noted Leg (L), no edema noted Leg (R), no edema noted Pedal (L), no edema noted Pedal (R), no edema noted Generalized Neurologic: responsive, motor weakness Skin: normal pigmentation, warm/dry MARQUEZ FOY Aug 09, 2016 08:24
[2016-08-09] MEDS: Phenytoin Susp 100mg/4ml ORAL SCH (08:49)
[2016-08-09] MEDS: Lisinopril 20mg tab ORAL SCH (08:50)
[2016-08-09] MEDS: Depakote ER 500mg tab ORAL SCH ×2 (08:51→21:27)
[2016-08-09] MEDS: Heparin 5000 units/ml inj SUBQ SCH ×2 (08:55→21:30)
[2016-08-09] MEDS: Topiramate 100mg tab ORAL SCH ×2 (08:56→18:16)
[2016-08-09] MEDS: carBAMazepine 200mg tab ORAL SCH ×2 (09:00→21:28)
[2016-08-09] MEDS: Lyrica 50mg cap ORAL SCH ×3 (09:00→18:00)
[2016-08-09 11:56] LABS: BASOPHILS % (AUTO) 0.8 % (0.0-2.0); EOSINOPHILS % (AUTO) 1.8 % (0.0-3.0); LYMPHOCYTES % (AUTO) 27.3 % (20.0-45.0); MEAN CORPUSCULAR HEMOGLOBIN 29.9 PG (27.0-31.0); MEAN CORPUSCULAR HGB CONC 32.5 G/DL (32.0-36.0); MEAN CORPUSCULAR VOLUME 92 FL (80-99); MEAN PLATELET VOLUME 7.3 FL (6.5-10.1); MONOCYTES % (AUTO) 6.8 % (1.0-10.0); NEUTROPHILS % (AUTO) 63.3 % (45.0-75.0); PLATELET COUNT 216 K/UL (150-450); RED BLOOD COUNT 4.38 M/UL (4.70-6.10); RED CELL DISTRIBUTION WIDTH 12.6 % (11.6-14.8); WHITE BLOOD COUNT 7.5 K/UL (4.8-10.8)
[2016-08-09 11:58] LABS: ANION GAP 17 (5-15); CALCIUM 8.9 mg/dL (8.6-10.2); CARBON DIOXIDE 24 mEQ/L (20-30); CHLORIDE 94 mEQ/L (98-107); CREATININE 0.7 mg/dL (0.7-1.2); GLOMERULAR FILTRATION RATE > 60 mL/min (>60); HEMOLYSIS 4; SODIUM 135 mEQ/L (135-145)
[2016-08-09 12:00] VITALS: BP 135/87
[2016-08-09 16:00] VITALS: BP 139/89
--- NOTE | 2016-08-09 16:05 | Pulmonology Progress Note ---
Assessment/Plan Problems: (1) ACS (acute coronary syndrome) (2) CHF (congestive heart failure) (3) Morbid obesity (4) Osteosarcoma (5) Hepatitis C Assessment/Plan doing better chest pain better pain consult appreciated all labs and noted reviewed cardio consult reviewed dc planing Subjective ROS Limited/Unobtainable: No Allergies: Coded Allergies: KETOROLAC (Verified Allergy, Severe, 08/06/16) ASPIRIN (Verified Allergy, Intermediate, 08/06/16) CEPHALEXIN (Verified Allergy, Mild, 12/13/14) PEANUT (Verified Allergy, Unknown, 11/19/15) Objective Last 24 Hour Vital Signs Date Time Temp Pulse Resp B/P Pulse Ox O2 Delivery O2 Flow Rate FiO2 08/09/16 12:00 103 08/09/16 12:00 98.1 100 19 135/87 95 Room Air 08/09/16 08:50 145/97 08/09/16 08:49 89 145/97 08/09/16 08:03 Room Air 08/09/16 08:03 94 Room Air 08/09/16 08:02 89 20 Room Air 08/09/16 08:00 96 08/09/16 08:00 104 18 145/97 100 Room Air 08/09/16 04:00 97.9 94 20 139/93 94 Nasal Cannula 2.0 08/09/16 04:00 86 08/09/16 00:00 101 08/09/16 00:00 98.1 102 20 139/85 98 Nasal Cannula 2.0 08/08/16 22:01 95 08/08/16 20:00 95 08/08/16 20:00 98.1 98 20 149/99 98 08/08/16 19:27 Nasal Cannula 2.0 28 08/08/16 19:27 98 Nasal Cannula 2.0 28 08/08/16 19:26 99 20 Nasal Cannula 2.0 28 08/08/16 19:23 99 20 99 Nasal Cannula 2.0 28 08/08/16 19:21 28 08/08/16 19:20 99 20 99 Nasal Cannula 2.0 28 08/08/16 19:16 99 20 98 Nasal Cannula 2.0 28 Intake and Output 08/08/16 08/09/16 19:00 07:00 Intake Total 480 ml Balance 480 ml Intake Oral 480 ml # Voids 2 Objective General Appearance: WD/WN HEENT: normocephalic, anicteric Cardiovascular: normal peripheral pulses, regular rhythm Abdomen: normal bowel sounds, soft, non tender Genitourinary: normal external genitalia Skin: no rash Microbiology Date/Time Source Procedure Growth Status 08/07/16 09:40 Blood Blood Culture - Preliminary NO GROWTH AFTER 24 HOURS Resulted 08/07/16 08:45 Blood Blood Culture - Preliminary NO GROWTH AFTER 24 HOURS Resulted 08/08/16 13:00 Sputum Expectorated Gram Stain - Final Resulted 08/08/16 13:00 Sputum Expectorated Sputum Culture - Preliminary NORMAL UPPER RESPIRATORY GREGORIA AT 24 ... Resulted Laboratory Tests 08/09/16 11:05: White Blood Count 7.5, Red Blood Count 4.38L, Hemoglobin 13.1L, Hematocrit 40.3L , Mean Corpuscular Volume 92, Mean Corpuscular Hemoglobin 29.9, Mean Corpuscular Hemoglobin Concent 32.5, Red Cell Distribution Width 12.6, Platelet Count 216, Mean Platelet Volume 7.3, Neutrophils (%) (Auto) 63.3, Lymphocytes (% ) (Auto) 27.3, Monocytes (%) (Auto) 6.8, Eosinophils (%) (Auto) 1.8, Basophils ( %) (Auto) 0.8, Sodium Level 135, Potassium Level 4.0, Chloride Level 94L, Carbon Dioxide Level 24, Anion Gap 17H, Blood Urea Nitrogen 10, Creatinine 0.7, Estimat Glomerular Filtration Rate > 60, Glucose Level 312#H, Calcium Level 8.9 Current Medications Medications (Trade) Dose Ordered Sig/Robert Route PRN Reason Start Time Stop Time Status Last Admin Dose Admin Acetaminophen (Tylenol) 650 mg Q4H PRN ORAL FEVER 08/06/16 07:45 09/05/16 07:44 Albuterol/ Ipratropium (DuoNeb 0.5-3(2.5)mg/3ml) 3 ml Q4H PRN HHN Shortness of Breath 08/06/16 07:45 08/11/16 07:44 08/08/16 19:11 Amitriptyline HCl (Elavil) 25 mg BEDTIME ORAL 08/06/16 21:00 09/05/16 20:59 08/08/16 20:45 Amlodipine Besylate (Norvasc) 10 mg DAILY ORAL 08/06/16 10:00 7/8/17 09:59 08/09/16 08:49 Calcium Carbonate (Tums) 500 mg Q4H PRN ORAL dyspepsia 08/06/16 07:45 09/05/16 07:44 Carbamazepine (TEGretol) 300 mg Q12HR ORAL 08/06/16 10:00 09/05/16 09:59 08/09/16 09:00 Diltiazem HCl (Cardizem) 10 mg Q1H PRN IV heart rate more than 120, 08/06/16 07:45 09/05/16 07:44 Divalproex Sodium (Depakote ER) 1,000 mg EVERY 12 HOURS ORAL 08/06/16 10:00 09/05/16 09:59 08/09/16 08:51 Enalaprilat (Vasotec) 2.5 mg Q6H PRN IV sbp more than 160 08/06/16 07:45 09/05/16 07:44 Fentanyl (Duragesic) 1 patch Q72H TDERMAL 08/08/16 21:30 08/15/16 21:29 08/08/16 21:38 Fluoxetine HCl (PROzac) 20 mg DAILY ORAL 08/06/16 10:00 09/05/16 09:59 08/09/16 08:50 Heparin Sodium (Porcine) (Heparin 5000 units/ml) 5,000 units EVERY 12 HOURS SUBQ 08/06/16 10:00 09/05/16 09:59 08/09/16 08:55 Hydromorphone HCl (Dilaudid) 2 mg Q2H PRN IVP For Pain 08/06/16 23:15 08/13/16 23:14 08/09/16 15:59 Lisinopril (Prinivil) 20 mg DAILY ORAL 08/06/16 10:00 09/05/16 09:59 08/09/16 08:50 Methocarbamol (Robaxin) 750 mg QIDPRN PRN ORAL Muscle Spasm 08/06/16 08:30 09/05/16 08:29 Naloxone HCl (Narcan) 0.1 mg STAT PRN IV Sedation scale 3 or 4 08/06/16 11:00 09/05/16 10:59 Nitroglycerin (Ntg) 0.4 mg Q5M PRN SL Prn Chest Pain 08/06/16 07:45 09/05/16 07:44 Ondansetron HCl (Zofran) 4 mg Q6H PRN IVP Nausea & Vomiting 08/06/16 07:45 09/05/16 07:44 Oxycodone/ Acetaminophen (Percocet 10/325) 1 tab Q4H PRN ORAL moderate breakthrough pain 08/06/16 18:15 08/13/16 18:14 Pantoprazole (Protonix) 40 mg DAILY ORAL 08/06/16 10:00 09/05/16 09:59 08/09/16 08:49 Phenytoin (Dilantin) 250 mg DAILY ORAL 08/06/16 10:00 09/05/16 09:59 08/09/16 08:49 Polyethylene Glycol (Miralax) 17 gm DAILYPRN PRN ORAL Constipation 08/06/16 07:45 09/05/16 07:44 Pregabalin (Lyrica) 100 mg THREE TIMES A DAY ORAL 08/06/16 18:30 09/05/16 18:29 08/07/16 09:33 Temazepam (Restoril) 15 mg HSPRN PRN ORAL Insomnia 08/06/16 07:45 08/13/16 07:44 Topiramate (Topamax) 50 mg TWICE A DAY ORAL 08/06/16 10:00 09/05/16 09:59 08/09/16 08:56 Trazodone HCl (Desyrel) 100 mg BEDTIME ORAL 08/06/16 21:00 09/05/16 20:59 08/08/16 20:45 LAUREN OCHOA Aug 09, 2016 16:05
--- NOTE | 2016-08-09 16:59 | Cardiac Electrophysiology PN ---
Assessment/Plan Assessment/Plan 1. Atypical chest pain. Ruled out for myocardial infarction. His EKG is nonischemic and his echocardiogram showed normal left ventricular systolic function. Currently, the patient does not have any chest pain. Awaiting nuclear stress test tomorrow. 2. Hypertension. Continue Norvasc 10 mg daily and lisinopril 20 mg daily. 3. Chronic obstructive pulmonary disease. 4. Psychosis on Desyrel and Elavil. 5. Seizure disorder, on Tegretol. 6. Morbid obesity. BRADLEY RN Subjective Subjective No new events over night. Awaiting stress test in am. Objective Last 24 Hour Vital Signs Date Time Temp Pulse Resp B/P Pulse Ox O2 Delivery O2 Flow Rate FiO2 08/09/16 16:00 84 19 139/89 Nasal Cannula 2.0 99 08/09/16 12:00 103 08/09/16 12:00 98.1 100 19 135/87 95 Room Air 08/09/16 08:50 145/97 08/09/16 08:49 89 145/97 08/09/16 08:03 Room Air 08/09/16 08:03 94 Room Air 08/09/16 08:02 89 20 Room Air 08/09/16 08:00 96 08/09/16 08:00 104 18 145/97 100 Room Air 08/09/16 04:00 97.9 94 20 139/93 94 Nasal Cannula 2.0 08/09/16 04:00 86 08/09/16 00:00 101 08/09/16 00:00 98.1 102 20 139/85 98 Nasal Cannula 2.0 08/08/16 22:01 95 08/08/16 20:00 95 08/08/16 20:00 98.1 98 20 149/99 98 08/08/16 19:27 Nasal Cannula 2.0 28 08/08/16 19:27 98 Nasal Cannula 2.0 28 08/08/16 19:26 99 20 Nasal Cannula 2.0 28 08/08/16 19:23 99 20 99 Nasal Cannula 2.0 28 08/08/16 19:21 28 08/08/16 19:20 99 20 99 Nasal Cannula 2.0 28 08/08/16 19:16 99 20 98 Nasal Cannula 2.0 28 Intake and Output 08/08/16 08/09/16 19:00 07:00 Intake Total 480 ml Balance 480 ml Intake Oral 480 ml # Voids 2 Laboratory Tests Test 08/09/16 11:05 White Blood Count 7.5 K/UL (4.8-10.8) Red Blood Count 4.38 M/UL (4.70-6.10) L Hemoglobin 13.1 G/DL (14.2-18.0) L Hematocrit 40.3 % (42.0-52.0) L Mean Corpuscular Volume 92 FL (80-99) Mean Corpuscular Hemoglobin 29.9 PG (27.0-31.0) Mean Corpuscular Hemoglobin Concent 32.5 G/DL (32.0-36.0) Red Cell Distribution Width 12.6 % (11.6-14.8) Platelet Count 216 K/UL (150-450) Mean Platelet Volume 7.3 FL (6.5-10.1) Neutrophils (%) (Auto) 63.3 % (45.0-75.0) Lymphocytes (%) (Auto) 27.3 % (20.0-45.0) Monocytes (%) (Auto) 6.8 % (1.0-10.0) Eosinophils (%) (Auto) 1.8 % (0.0-3.0) Basophils (%) (Auto) 0.8 % (0.0-2.0) Sodium Level 135 mEQ/L (135-145) Potassium Level 4.0 mEQ/L (3.4-4.9) Chloride Level 94 mEQ/L (98-107) L Carbon Dioxide Level 24 mEQ/L (20-30) Anion Gap 17 (5-15) H Blood Urea Nitrogen 10 mg/dL (7-23) Creatinine 0.7 mg/dL (0.7-1.2) Estimat Glomerular Filtration Rate > 60 mL/min (>60) Glucose Level 312 mg/dL (74-106) #H Calcium Level 8.9 mg/dL (8.6-10.2) Microbiology Date/Time Source Procedure Growth Status 08/07/16 09:40 Blood Blood Culture - Preliminary NO GROWTH AFTER 24 HOURS Resulted 08/07/16 08:45 Blood Blood Culture - Preliminary NO GROWTH AFTER 24 HOURS Resulted 08/08/16 13:00 Sputum Expectorated Gram Stain - Final Resulted 08/08/16 13:00 Sputum Expectorated Sputum Culture - Preliminary NORMAL UPPER RESPIRATORY GREGORIA AT 24 ... Resulted Objective HEAD AND NECK: Shows no JVD. LUNGS: Clear. CARDIOVASCULAR: regular S1 and S2 with no gallop or murmur. ABDOMEN: Soft and nontender. Obese. EXTREMITIES: 1+ pitting edema. GAEL MAXWELL Aug 09, 2016 16:59
[2016-08-09 20:00] VITALS: BP 124/96
[2016-08-09] MEDS: TraZODone 100mg tab ORAL SCH (21:27)
--- NOTE | 2016-08-09 22:28 | Cardiology Report ---
APPROVED REPORT EKG Measurement Heart [id number] Normal sinus rhythm Normal ECG
[2016-08-10] VITALS: BP 128/78
[2016-08-10 07:49] VITALS: BP 121/87
--- NOTE | 2016-08-10 08:45 | Cardiology Report ---
APPROVED REPORT EXAM: Two-dimensional and M-mode echocardiogram with Doppler and color Doppler. INDICATION Left Ventricular Function M-Mode DIMENSIONS IVSd1.0 (0.7-1.1cm)Left Atrium (MM)4.6 (1.6-4.0cm) LVDd5.8 (3.5-5.6cm)Aortic Root3.7 (2.0-3.7cm) PWd1.0 (0.7-1.1cm)Aortic Cusp Exc.2.3 (1.5-2.0cm) LVDs4.1 (2.5-4.0cm) PWs1.1 cm Technically difficult study due to poor acoustic windows and patient body habitus. Study quality precludes accurate assessment of regional wall motion. Mild left ventricular enlargement. Normal left ventricular systolic function and wall motion to extent visualized. Left ventricular ejection fraction estimated to be grossly normal. No evidence of ventricular hypertrophy. No evidence of pericardial fat or effusion. Mild right ventricular enlargement. Mild left atrial enlargement. Right atrial chamber size is within normal limits. Focal aortic valve sclerosis with adequate cusp excursion. Thickened mitral valve leaflets with normal excursion. Mitral annulus and aortic root calcification. Pulmonic valve not well visualized. Normal tricuspid valve structure. IVC dilated at 1.6 cm with physiologic collapse. A color flow and spectral Doppler study was performed and revealed: No aortic regurgitation. No mitral regurgitation. Mitral inflow velocities indicates normal left ventricular diastolic function. Trace tricuspid regurgitation. Tricuspid systolic velocities suggests peak right ventricular systolic pressure of 12 mmHg. No pulmonic regurgitation present.
[2016-08-10] MEDS: Lyrica 50mg cap ORAL SCH ×3 (09:00→17:02)
[2016-08-10] MEDS: Heparin 5000 units/ml inj SUBQ SCH ×2 (09:00→20:33)
[2016-08-10] MEDS: Lisinopril 20mg tab ORAL SCH (09:00)
[2016-08-10] MEDS: Depakote ER 500mg tab ORAL SCH ×2 (09:10→21:18)
[2016-08-10] MEDS: Phenytoin Susp 100mg/4ml ORAL SCH (09:10)
[2016-08-10] MEDS: carBAMazepine 200mg tab ORAL SCH ×2 (09:12→20:29)
[2016-08-10] MEDS: Topiramate 100mg tab ORAL SCH ×2 (09:13→17:02)
[2016-08-10 10:05] LABS: BASOPHILS % (AUTO) 0.7 % (0.0-2.0); EOSINOPHILS % (AUTO) 1.8 % (0.0-3.0); LYMPHOCYTES % (AUTO) 33.6 % (20.0-45.0); MEAN CORPUSCULAR HEMOGLOBIN 30.1 PG (27.0-31.0); MEAN CORPUSCULAR HGB CONC 32.7 G/DL (32.0-36.0); MEAN CORPUSCULAR VOLUME 92 FL (80-99); MEAN PLATELET VOLUME 7.8 FL (6.5-10.1); MONOCYTES % (AUTO) 8.1 % (1.0-10.0); NEUTROPHILS % (AUTO) 55.9 % (45.0-75.0); PLATELET COUNT 214 K/UL (150-450); RED BLOOD COUNT 4.48 M/UL (4.70-6.10); RED CELL DISTRIBUTION WIDTH 12.6 % (11.6-14.8); WHITE BLOOD COUNT 7.3 K/UL (4.8-10.8)
[2016-08-10 11:30] LABS: ANION GAP 15 (5-15); CARBON DIOXIDE 25 mEQ/L (20-30); CHLORIDE 98 mEQ/L (98-107); CREATININE 0.6 mg/dL (0.7-1.2); GLOMERULAR FILTRATION RATE > 60 mL/min (>60); SODIUM 138 mEQ/L (135-145)
[2016-08-10 11:31] LABS: CALCIUM 9.2 mg/dL (8.6-10.2)
[2016-08-10 11:36] VITALS: BP 124/79
--- NOTE | 2016-08-10 12:57 | General Progress Note ---
Assessment/Plan Problem List: (1) GERD (gastroesophageal reflux disease) ICD Codes: K21.9 - Gastro-esophageal reflux disease without esophagitis SNOMED: 436888659 (2) CHF (congestive heart failure) ICD Codes: I50.9 - Heart failure, unspecified SNOMED: 75228798 (3) ACS (acute coronary syndrome) ICD Codes: I24.9 - Acute ischemic heart disease, unspecified SNOMED: 143153191 (4) Chest pain ICD Codes: R07.9 - Chest pain, unspecified SNOMED: 32043432 Status: progressing Assessment/Plan chest pain r/o acs labs wnl except borderline elev bg has t o be cleared by toluie in order to dc Subjective ROS Limited/Unobtainable: Yes Allergies: Coded Allergies: KETOROLAC (Verified Allergy, Severe, 08/06/16) ASPIRIN (Verified Allergy, Intermediate, 08/06/16) CEPHALEXIN (Verified Allergy, Mild, 12/13/14) PEANUT (Verified Allergy, Unknown, 11/19/15) Objective Last 24 Hour Vital Signs Date Time Temp Pulse Resp B/P Pulse Ox O2 Delivery O2 Flow Rate FiO2 08/10/16 11:36 96.9 74 20 124/79 96 Room Air 08/10/16 08:00 78 08/10/16 07:49 96.3 78 20 121/87 98 Room Air 08/10/16 07:45 98 Room Air 08/10/16 07:45 Room Air 08/10/16 07:44 83 20 Room Air 08/10/16 04:00 87 08/10/16 00:00 96.8 83 22 128/78 98 Room Air 08/10/16 00:00 90 08/09/16 20:00 97.9 90 21 124/96 95 Room Air 08/09/16 20:00 94 08/09/16 19:47 97 Room Air 08/09/16 19:47 98 20 Room Air 08/09/16 19:47 Room Air 08/09/16 16:00 84 19 139/89 Nasal Cannula 2.0 99 08/09/16 16:00 89 Intake and Output 08/09/16 08/10/16 19:00 07:00 # Voids 1 Laboratory Tests 08/10/16 09:15: Sodium Level 138, Potassium Level 4.0, Chloride Level 98, Carbon Dioxide Level 25, Anion Gap 15, Blood Urea Nitrogen 8, Creatinine 0.6L, Estimat Glomerular Filtration Rate > 60, Glucose Level 188#H, Calcium Level 9.2 08/10/16 09:45: White Blood Count 7.3, Red Blood Count 4.48L, Hemoglobin 13.5L, Hematocrit 41.2L , Mean Corpuscular Volume 92, Mean Corpuscular Hemoglobin 30.1, Mean Corpuscular Hemoglobin Concent 32.7, Red Cell Distribution Width 12.6, Platelet Count 214, Mean Platelet Volume 7.8, Neutrophils (%) (Auto) 55.9, Lymphocytes (% ) (Auto) 33.6, Monocytes (%) (Auto) 8.1, Eosinophils (%) (Auto) 1.8, Basophils ( %) (Auto) 0.7 Height (Feet): 5 Height (Inches): 10.00 Weight (Pounds): 332 EENT: PERRL/EOMI Neck: supple Teddy Hernandez MD Aug 10, 2016 12:57
--- NOTE | 2016-08-10 14:34 | Pulmonology Progress Note ---
Assessment/Plan Problems: (1) ACS (acute coronary syndrome) (2) CHF (congestive heart failure) (3) Morbid obesity (4) Osteosarcoma (5) Hepatitis C Assessment/Plan doing better chest pain better pain consult appreciated all labs and noted reviewed cardio consult reviewed stress study pending Subjective ROS Limited/Unobtainable: No Interval Events: no new complains Allergies: Coded Allergies: KETOROLAC (Verified Allergy, Severe, 08/06/16) ASPIRIN (Verified Allergy, Intermediate, 08/06/16) CEPHALEXIN (Verified Allergy, Mild, 12/13/14) PEANUT (Verified Allergy, Unknown, 11/19/15) Objective Last 24 Hour Vital Signs Date Time Temp Pulse Resp B/P Pulse Ox O2 Delivery O2 Flow Rate FiO2 08/10/16 11:36 96.9 74 20 124/79 96 Room Air 08/10/16 08:00 78 08/10/16 07:49 96.3 78 20 121/87 98 Room Air 08/10/16 07:45 98 Room Air 08/10/16 07:45 Room Air 08/10/16 07:44 83 20 Room Air 08/10/16 04:00 87 08/10/16 00:00 96.8 83 22 128/78 98 Room Air 08/10/16 00:00 90 08/09/16 20:00 97.9 90 21 124/96 95 Room Air 08/09/16 20:00 94 08/09/16 19:47 97 Room Air 08/09/16 19:47 98 20 Room Air 08/09/16 19:47 Room Air 08/09/16 16:00 84 19 139/89 Nasal Cannula 2.0 99 08/09/16 16:00 89 Intake and Output 08/09/16 08/10/16 19:00 07:00 # Voids 1 Objective General Appearance: WD/WN HEENT: normocephalic, anicteric Cardiovascular: normal peripheral pulses, regular rhythm Abdomen: normal bowel sounds, soft, non tender Genitourinary: normal external genitalia Skin: no rash Microbiology Date/Time Source Procedure Growth Status 08/08/16 13:00 Sputum Expectorated Gram Stain - Final Complete 08/08/16 13:00 Sputum Expectorated Sputum Culture - Final NORMAL UPPER RESPIRATORY GREGORIA AT 48 ... Complete Laboratory Tests 08/10/16 09:15: Sodium Level 138, Potassium Level 4.0, Chloride Level 98, Carbon Dioxide Level 25, Anion Gap 15, Blood Urea Nitrogen 8, Creatinine 0.6L, Estimat Glomerular Filtration Rate > 60, Glucose Level 188#H, Calcium Level 9.2 08/10/16 09:45: White Blood Count 7.3, Red Blood Count 4.48L, Hemoglobin 13.5L, Hematocrit 41.2L , Mean Corpuscular Volume 92, Mean Corpuscular Hemoglobin 30.1, Mean Corpuscular Hemoglobin Concent 32.7, Red Cell Distribution Width 12.6, Platelet Count 214, Mean Platelet Volume 7.8, Neutrophils (%) (Auto) 55.9, Lymphocytes (% ) (Auto) 33.6, Monocytes (%) (Auto) 8.1, Eosinophils (%) (Auto) 1.8, Basophils ( %) (Auto) 0.7 Current Medications Medications (Trade) Dose Ordered Sig/Robert Route PRN Reason Start Time Stop Time Status Last Admin Dose Admin Acetaminophen (Tylenol) 650 mg Q4H PRN ORAL FEVER 08/06/16 07:45 09/05/16 07:44 Albuterol/ Ipratropium (DuoNeb 0.5-3(2.5)mg/3ml) 3 ml Q4H PRN HHN Shortness of Breath 08/06/16 07:45 08/11/16 07:44 08/08/16 19:11 Amitriptyline HCl (Elavil) 25 mg BEDTIME ORAL 08/06/16 21:00 09/05/16 20:59 08/09/16 21:27 Amlodipine Besylate (Norvasc) 10 mg DAILY ORAL 08/06/16 10:00 09/05/16 09:59 08/09/16 08:49 Calcium Carbonate (Tums) 500 mg Q4H PRN ORAL dyspepsia 08/06/16 07:45 09/05/16 07:44 08/10/16 01:08 Carbamazepine (TEGretol) 300 mg Q12HR ORAL 08/06/16 10:00 09/05/16 09:59 08/10/16 09:12 Diltiazem HCl (Cardizem) 10 mg Q1H PRN IV heart rate more than 120, 08/06/16 07:45 09/05/16 07:44 Divalproex Sodium (Depakote ER) 1,000 mg EVERY 12 HOURS ORAL 08/06/16 10:00 09/05/16 09:59 08/10/16 09:10 Enalaprilat (Vasotec) 2.5 mg Q6H PRN IV sbp more than 160 08/06/16 07:45 09/05/16 07:44 Fentanyl (Duragesic) 1 patch Q72H TDERMAL 08/08/16 21:30 08/15/16 21:29 08/08/16 21:38 Fluoxetine HCl (PROzac) 20 mg DAILY ORAL 08/06/16 10:00 09/05/16 09:59 08/10/16 09:14 Heparin Sodium (Porcine) (Heparin 5000 units/ml) 5,000 units EVERY 12 HOURS SUBQ 08/06/16 10:00 09/05/16 09:59 08/09/16 21:30 Hydromorphone HCl (Dilaudid) 2 mg Q2H PRN IVP For Pain 08/06/16 23:15 08/13/16 23:14 08/10/16 13:57 Lisinopril (Prinivil) 20 mg DAILY ORAL 08/06/16 10:00 09/05/16 09:59 08/09/16 08:50 Methocarbamol (Robaxin) 750 mg QIDPRN PRN ORAL Muscle Spasm 08/06/16 08:30 09/05/16 08:29 Naloxone HCl (Narcan) 0.1 mg STAT PRN IV Sedation scale 3 or 4 08/06/16 11:00 09/05/16 10:59 Nitroglycerin (Ntg) 0.4 mg Q5M PRN SL Prn Chest Pain 08/06/16 07:45 09/05/16 07:44 Ondansetron HCl (Zofran) 4 mg Q6H PRN IVP Nausea & Vomiting 08/06/16 07:45 09/05/16 07:44 Oxycodone/ Acetaminophen (Percocet 10/325) 1 tab Q4H PRN ORAL moderate breakthrough pain 08/06/16 18:15 08/13/16 18:14 Pantoprazole (Protonix) 40 mg DAILY ORAL 08/06/16 10:00 09/05/16 09:59 08/10/16 09:12 Phenytoin (Dilantin) 250 mg DAILY ORAL 08/06/16 10:00 09/05/16 09:59 08/10/16 09:10 Polyethylene Glycol (Miralax) 17 gm DAILYPRN PRN ORAL Constipation 08/06/16 07:45 09/05/16 07:44 Pregabalin (Lyrica) 100 mg THREE TIMES A DAY ORAL 08/06/16 18:30 09/05/16 18:29 08/07/16 09:33 Temazepam (Restoril) 15 mg HSPRN PRN ORAL Insomnia 08/06/16 07:45 08/13/16 07:44 Topiramate (Topamax) 50 mg TWICE A DAY ORAL 08/06/16 10:00 09/05/16 09:59 08/10/16 09:13 Trazodone HCl (Desyrel) 100 mg BEDTIME ORAL 08/06/16 21:00 09/05/16 20:59 08/09/16 21:27 LAUREN OCHOA Aug 10, 2016 14:34
[2016-08-10 15:30] VITALS: BP 141/96
--- NOTE | 2016-08-10 15:30 | Infectious Diseases Prog Note ---
Assessment/Plan Problems: (1) Chest pain Assessment & Plan: rule out ACS, pending stress test, cardiology is following (2) CHF (congestive heart failure) Assessment & Plan: with exacerbation, improved, continue diuresis, monitor UOP , and daily weight (3) Leukocytosis Assessment & Plan: resolved, suspect dehydration related, blood culture is negative , monitor WBC Subjective Constitutional: Reports: no symptoms HEENT: Reports: no symptoms Respiratory: Reports: no symptoms Breasts: Reports: no symptoms Cardiovascular: Reports: no symptoms Gastrointestinal/Abdominal: Reports: no symptoms Genitourinary: Reports: no symptoms Neurologic: Reports: no symptoms Psychiatric: Reports: no symptoms Skin: Reports: no symptoms Endocrine: Reports: no symptoms Allergies: Coded Allergies: KETOROLAC (Verified Allergy, Severe, 08/06/16) ASPIRIN (Verified Allergy, Intermediate, 08/06/16) CEPHALEXIN (Verified Allergy, Mild, 12/13/14) PEANUT (Verified Allergy, Unknown, 11/19/15) Objective Vital Signs Last 24 Hour Vital Signs Date Time Temp Pulse Resp B/P Pulse Ox O2 Delivery O2 Flow Rate FiO2 08/10/16 11:36 96.9 74 20 124/79 96 Room Air 08/10/16 08:00 78 08/10/16 07:49 96.3 78 20 121/87 98 Room Air 08/10/16 07:45 98 Room Air 08/10/16 07:45 Room Air 08/10/16 07:44 83 20 Room Air 08/10/16 04:00 87 08/10/16 00:00 96.8 83 22 128/78 98 Room Air 08/10/16 00:00 90 08/09/16 20:00 97.9 90 21 124/96 95 Room Air 08/09/16 20:00 94 08/09/16 19:47 97 Room Air 08/09/16 19:47 98 20 Room Air 08/09/16 19:47 Room Air 08/09/16 16:00 84 19 139/89 Nasal Cannula 2.0 99 08/09/16 16:00 89 Height (Feet): 5 Height (Inches): 10.00 Weight (Pounds): 332 General Appearance: WD/WN, no acute distress HEENT: normocephalic, atraumatic, anicteric Respiratory/Chest: chest wall non-tender, lungs clear, normal breath sounds, no respiratory distress, no accessory muscle use Cardiovascular: normal peripheral pulses, normal rate, regular rhythm, no gallop/murmur Abdomen: normal bowel sounds, soft, non tender, no organomegaly, non distended , no mass, no scars Extremities: no cyanosis, no clubbing Microbiology Date/Time Source Procedure Growth Status 08/08/16 13:00 Sputum Expectorated Gram Stain - Final Complete 08/08/16 13:00 Sputum Expectorated Sputum Culture - Final NORMAL UPPER RESPIRATORY GREGORIA AT 48 ... Complete Laboratory Tests Test 08/10/16 09:15 08/10/16 09:45 Sodium Level 138 mEQ/L (135-145) Potassium Level 4.0 mEQ/L (3.4-4.9) Chloride Level 98 mEQ/L (98-107) Carbon Dioxide Level 25 mEQ/L (20-30) Anion Gap 15 (5-15) Blood Urea Nitrogen 8 mg/dL (7-23) Creatinine 0.6 mg/dL (0.7-1.2) L Estimat Glomerular Filtration Rate > 60 mL/min (>60) Glucose Level 188 mg/dL (74-106) #H Calcium Level 9.2 mg/dL (8.6-10.2) White Blood Count 7.3 K/UL (4.8-10.8) Red Blood Count 4.48 M/UL (4.70-6.10) L Hemoglobin 13.5 G/DL (14.2-18.0) L Hematocrit 41.2 % (42.0-52.0) L Mean Corpuscular Volume 92 FL (80-99) Mean Corpuscular Hemoglobin 30.1 PG (27.0-31.0) Mean Corpuscular Hemoglobin Concent 32.7 G/DL (32.0-36.0) Red Cell Distribution Width 12.6 % (11.6-14.8) Platelet Count 214 K/UL (150-450) Mean Platelet Volume 7.8 FL (6.5-10.1) Neutrophils (%) (Auto) 55.9 % (45.0-75.0) Lymphocytes (%) (Auto) 33.6 % (20.0-45.0) Monocytes (%) (Auto) 8.1 % (1.0-10.0) Eosinophils (%) (Auto) 1.8 % (0.0-3.0) Basophils (%) (Auto) 0.7 % (0.0-2.0) Current Medications Medications (Trade) Dose Ordered Sig/Robert Route PRN Reason Start Time Stop Time Status Last Admin Dose Admin Acetaminophen (Tylenol) 650 mg Q4H PRN ORAL FEVER 08/06/16 07:45 09/05/16 07:44 Albuterol/ Ipratropium (DuoNeb 0.5-3(2.5)mg/3ml) 3 ml Q4H PRN HHN Shortness of Breath 08/06/16 07:45 08/11/16 07:44 08/08/16 19:11 Amitriptyline HCl (Elavil) 25 mg BEDTIME ORAL 08/06/16 21:00 09/05/16 20:59 08/09/16 21:27 Amlodipine Besylate (Norvasc) 10 mg DAILY ORAL 08/06/16 10:00 09/05/16 09:59 08/09/16 08:49 Calcium Carbonate (Tums) 500 mg Q4H PRN ORAL dyspepsia 08/06/16 07:45 09/05/16 07:44 08/10/16 01:08 Carbamazepine (TEGretol) 300 mg Q12HR ORAL 08/06/16 10:00 09/05/16 09:59 08/10/16 09:12 Diltiazem HCl (Cardizem) 10 mg Q1H PRN IV heart rate more than 120, 08/06/16 07:45 09/05/16 07:44 Divalproex Sodium (Depakote ER) 1,000 mg EVERY 12 HOURS ORAL 08/06/16 10:00 09/05/16 09:59 08/10/16 09:10 Enalaprilat (Vasotec) 2.5 mg Q6H PRN IV sbp more than 160 08/06/16 07:45 09/05/16 07:44 Fentanyl (Duragesic) 1 patch Q72H TDERMAL 08/08/16 21:30 08/15/16 21:29 08/08/16 21:38 Fluoxetine HCl (PROzac) 20 mg DAILY ORAL 08/06/16 10:00 09/05/16 09:59 08/10/16 09:14 Heparin Sodium (Porcine) (Heparin 5000 units/ml) 5,000 units EVERY 12 HOURS SUBQ 08/06/16 10:00 09/05/16 09:59 08/09/16 21:30 Hydromorphone HCl (Dilaudid) 2 mg Q2H PRN IVP For Pain 08/06/16 23:15 08/13/16 23:14 08/10/16 13:57 Lisinopril (Prinivil) 20 mg DAILY ORAL 08/06/16 10:00 09/05/16 09:59 08/09/16 08:50 Methocarbamol (Robaxin) 750 mg QIDPRN PRN ORAL Muscle Spasm 08/06/16 08:30 09/05/16 08:29 Naloxone HCl (Narcan) 0.1 mg STAT PRN IV Sedation scale 3 or 4 08/06/16 11:00 09/05/16 10:59 Nitroglycerin (Ntg) 0.4 mg Q5M PRN SL Prn Chest Pain 08/06/16 07:45 09/05/16 07:44 Ondansetron HCl (Zofran) 4 mg Q6H PRN IVP Nausea & Vomiting 08/06/16 07:45 09/05/16 07:44 Oxycodone/ Acetaminophen (Percocet 10/325) 1 tab Q4H PRN ORAL moderate breakthrough pain 08/06/16 18:15 08/13/16 18:14 Pantoprazole (Protonix) 40 mg DAILY ORAL 08/06/16 10:00 09/05/16 09:59 08/10/16 09:12 Phenytoin (Dilantin) 250 mg DAILY ORAL 08/06/16 10:00 09/05/16 09:59 08/10/16 09:10 Polyethylene Glycol (Miralax) 17 gm DAILYPRN PRN ORAL Constipation 08/06/16 07:45 09/05/16 07:44 Pregabalin (Lyrica) 100 mg THREE TIMES A DAY ORAL 08/06/16 18:30 09/05/16 18:29 08/07/16 09:33 Temazepam (Restoril) 15 mg HSPRN PRN ORAL Insomnia 08/06/16 07:45 08/13/16 07:44 Topiramate (Topamax) 50 mg TWICE A DAY ORAL 08/06/16 10:00 7/8/17 09:59 08/10/16 09:13 Trazodone HCl (Desyrel) 100 mg BEDTIME ORAL 08/06/16 21:00 09/05/16 20:59 08/09/16 21:27 Uri Tesfaye M.D. Aug 10, 2016 15:30
--- NOTE | 2016-08-10 18:45 | Cardiac Electrophysiology PN ---
Assessment/Plan Assessment/Plan 1. Atypical chest pain. Ruled out for myocardial infarction. His EKG is nonischemic and his echocardiogram showed normal left ventricular systolic function. No chest pain. Awaiting nuclear stress test report from today. 2. Hypertension. Continue Norvasc 10 mg daily and lisinopril 20 mg daily. 3. Chronic obstructive pulmonary disease. 4. Psychosis on Desyrel and Elavil. 5. Seizure disorder, on Tegretol. 6. Morbid obesity. BRADLEY RN Subjective Subjective Had stress test today. Nuclear results pending. Objective Last 24 Hour Vital Signs Date Time Temp Pulse Resp B/P Pulse Ox O2 Delivery O2 Flow Rate FiO2 08/10/16 16:00 105 08/10/16 15:30 97.7 103 20 141/96 96 Room Air 08/10/16 12:00 78 08/10/16 11:36 96.9 74 20 124/79 96 Room Air 08/10/16 08:00 78 08/10/16 07:49 96.3 78 20 121/87 98 Room Air 08/10/16 07:45 98 Room Air 08/10/16 07:45 Room Air 08/10/16 07:44 83 20 Room Air 08/10/16 04:00 87 08/10/16 00:00 96.8 83 22 128/78 98 Room Air 08/10/16 00:00 90 08/09/16 20:00 97.9 90 21 124/96 95 Room Air 08/09/16 20:00 94 08/09/16 19:47 97 Room Air 08/09/16 19:47 98 20 Room Air 08/09/16 19:47 Room Air Intake and Output 08/09/16 08/10/16 19:00 07:00 # Voids 1 Laboratory Tests Test 08/10/16 09:15 08/10/16 09:45 Sodium Level 138 mEQ/L (135-145) Potassium Level 4.0 mEQ/L (3.4-4.9) Chloride Level 98 mEQ/L (98-107) Carbon Dioxide Level 25 mEQ/L (20-30) Anion Gap 15 (5-15) Blood Urea Nitrogen 8 mg/dL (7-23) Creatinine 0.6 mg/dL (0.7-1.2) L Estimat Glomerular Filtration Rate > 60 mL/min (>60) Glucose Level 188 mg/dL (74-106) #H Calcium Level 9.2 mg/dL (8.6-10.2) White Blood Count 7.3 K/UL (4.8-10.8) Red Blood Count 4.48 M/UL (4.70-6.10) L Hemoglobin 13.5 G/DL (14.2-18.0) L Hematocrit 41.2 % (42.0-52.0) L Mean Corpuscular Volume 92 FL (80-99) Mean Corpuscular Hemoglobin 30.1 PG (27.0-31.0) Mean Corpuscular Hemoglobin Concent 32.7 G/DL (32.0-36.0) Red Cell Distribution Width 12.6 % (11.6-14.8) Platelet Count 214 K/UL (150-450) Mean Platelet Volume 7.8 FL (6.5-10.1) Neutrophils (%) (Auto) 55.9 % (45.0-75.0) Lymphocytes (%) (Auto) 33.6 % (20.0-45.0) Monocytes (%) (Auto) 8.1 % (1.0-10.0) Eosinophils (%) (Auto) 1.8 % (0.0-3.0) Basophils (%) (Auto) 0.7 % (0.0-2.0) Microbiology Date/Time Source Procedure Growth Status 08/08/16 13:00 Sputum Expectorated Gram Stain - Final Complete 08/08/16 13:00 Sputum Expectorated Sputum Culture - Final NORMAL UPPER RESPIRATORY GREGORIA AT 48 ... Complete Objective HEAD AND NECK: Shows no JVD. LUNGS: Clear. CARDIOVASCULAR: regular S1 and S2 with no gallop or murmur. ABDOMEN: Soft and nontender. Obese. EXTREMITIES: 1+ pitting edema. GAEL MAXWELL Aug 10, 2016 18:45
[2016-08-10 20:10] VITALS: BP 144/85
[2016-08-10] MEDS: TraZODone 100mg tab ORAL SCH (20:29)
[2016-08-11 00:06] VITALS: BP 141/78
[2016-08-11] MEDS: Neosporin Oint Ud Pkt TOPIC PRN (00:14)
[2016-08-11 08:00] VITALS: BP 144/96
[2016-08-11] MEDS: Phenytoin Susp 100mg/4ml ORAL SCH (08:42)
[2016-08-11] MEDS: Depakote ER 500mg tab ORAL SCH ×2 (08:42→20:52)
[2016-08-11] MEDS: Lyrica 50mg cap ORAL SCH ×3 (08:43→17:21)
[2016-08-11] MEDS: Lisinopril 20mg tab ORAL SCH (08:43)
[2016-08-11] MEDS: carBAMazepine 200mg tab ORAL SCH ×2 (08:44→20:53)
[2016-08-11] MEDS: Topiramate 100mg tab ORAL SCH ×2 (08:44→17:21)
[2016-08-11] MEDS: Heparin 5000 units/ml inj SUBQ SCH ×2 (08:45→20:54)
--- NOTE | 2016-08-11 10:59 | Diagnostic Imaging Report ---
Indications: 4-year-old male inpatient presents with chest pain, hypertension. Technique: The examination was supervised by Dr. Grider. Baseline electrocardiogram was recorded. Dobutamine was administered the patient intravenously per standard protocol for a duration of 12 minutes 34 seconds, discontinued due to leg fatigue per cardiology worksheet, attaining a maximum heart rate of 140 beats per minute, not reaching target stress level of 153 beats per minute. Continuous electrocardiography, heart rate, blood pressure monitoring performed. Immediate SPECT imaging of the left ventricular myocardium was performed in multiple planes with the patient in supine position, following intravenous administration of 4.1 mCi 99 M technetium-sestaMIBI. Cinegraphic images were generated for wall motion analysis. Left ventricular ejection fraction was calculated. Similar imaging was performed at rest immediately prior with intravenous administration of 12.9 mCi 99 M technetium-sestaMIBI. Findings: Comparison: None. Both stress and rest images demonstrate focal areas of decreased to absent perfusion in the mid anteroseptal region and throughout the inferior wall apex to base. No obvious reversible perfusion abnormality demonstrated.. Cinegraphic images demonstrate no areas of significant wall motion abnormality. Ejection fraction is estimated at 61%. The patient developed leg fatigue but no acute electrocardiographic changes during dobutamine infusion. Supervising display coordinator's conclusions are that clinical response to exercise stress is nonischemic while electrocardiographic response is likewise nonischemic. IMPRESSION: No evidence of chemically induced left ventricular myocardial ischemia, limited by level of stress achieved not quite reaching target. Apparent fixed perfusion defects in the distributions of anterior and posterior descending arteries a simply represent artifact. Infarcts not excludable. Prone imaging may be of benefit in greater specificity. LVEF within normal limits This correlates with supervising display coordinator's conclusions.
[2016-08-11 12:00] VITALS: BP 142/78
--- NOTE | 2016-08-11 13:04 | General Progress Note ---
Assessment/Plan Problem List: (1) GERD (gastroesophageal reflux disease) ICD Codes: K21.9 - Gastro-esophageal reflux disease without esophagitis SNOMED: 430640846 (2) CHF (congestive heart failure) ICD Codes: I50.9 - Heart failure, unspecified SNOMED: 11420970 (3) ACS (acute coronary syndrome) ICD Codes: I24.9 - Acute ischemic heart disease, unspecified SNOMED: 508121285 (4) Chest pain ICD Codes: R07.9 - Chest pain, unspecified SNOMED: 26501676 Status: progressing Assessment/Plan chest pain stress test done will dc once cleared by cardiology Subjective ROS Limited/Unobtainable: Yes Constitutional: Reports: no symptoms Allergies: Coded Allergies: KETOROLAC (Verified Allergy, Severe, 08/06/16) ASPIRIN (Verified Allergy, Intermediate, 08/06/16) CEPHALEXIN (Verified Allergy, Mild, 12/13/14) PEANUT (Verified Allergy, Unknown, 11/19/15) Objective Last 24 Hour Vital Signs Date Time Temp Pulse Resp B/P Pulse Ox O2 Delivery O2 Flow Rate FiO2 08/11/16 12:00 97.0 92 18 142/78 98 Room Air 08/11/16 12:00 114 08/11/16 08:43 144/96 08/11/16 08:43 94 144/96 08/11/16 08:00 79 08/11/16 08:00 96.9 94 18 144/96 96 Room Air 08/11/16 07:55 89 20 Room Air 21 08/11/16 07:51 Room Air 08/11/16 07:50 95 Room Air 08/11/16 04:00 88 08/11/16 00:06 98.6 89 21 141/78 96 Nasal Cannula 08/11/16 00:00 79 08/10/16 20:10 98.3 90 20 144/85 98 Room Air 08/10/16 20:02 97 Room Air 08/10/16 20:02 Room Air 08/10/16 20:02 88 20 Room Air 21 08/10/16 20:00 87 08/10/16 16:00 105 08/10/16 15:30 97.7 103 20 141/96 96 Room Air Intake and Output 08/10/16 08/11/16 19:00 07:00 Intake Total 440 ml Balance 440 ml Intake Oral 440 ml # Voids 2 Height (Feet): 5 Height (Inches): 10.00 Weight (Pounds): 113 EENT: PERRL/EOMI Neck: supple Cardiovascular: normal rate Respiratory/Chest: lungs clear Abdomen: soft Teddy Hernandez MD Aug 11, 2016 13:04
--- NOTE | 2016-08-11 15:47 | Cardiac Electrophysiology PN ---
Assessment/Plan Assessment/Plan 1. Atypical chest pain. Ruled out for myocardial infarction. His EKG is nonischemic and his echocardiogram showed normal left ventricular systolic function. No chest pain. Nuclear stress test showed no ischemia. 2. Hypertension. Continue Norvasc 10 mg daily and lisinopril 20 mg daily. 3. Chronic obstructive pulmonary disease. 4. Psychosis on Desyrel and Elavil. 5. Seizure disorder, on Tegretol. 6. Morbid obesity. BRADLEY RN OK to DC from cardiac stand point Subjective Subjective No chest pain or SOB. Nuclear stress test was non ischemic. Objective Last 24 Hour Vital Signs Date Time Temp Pulse Resp B/P Pulse Ox O2 Delivery O2 Flow Rate FiO2 08/11/16 12:00 97.0 92 18 142/78 98 Room Air 08/11/16 12:00 114 08/11/16 08:43 144/96 08/11/16 08:43 94 144/96 08/11/16 08:00 79 08/11/16 08:00 96.9 94 18 144/96 96 Room Air 08/11/16 07:55 89 20 Room Air 21 08/11/16 07:51 Room Air 08/11/16 07:50 95 Room Air 08/11/16 04:00 88 08/11/16 00:06 98.6 89 21 141/78 96 Nasal Cannula 08/11/16 00:00 79 08/10/16 20:10 98.3 90 20 144/85 98 Room Air 08/10/16 20:02 97 Room Air 08/10/16 20:02 Room Air 08/10/16 20:02 88 20 Room Air 21 08/10/16 20:00 87 08/10/16 16:00 105 Intake and Output 08/10/16 08/11/16 19:00 07:00 Intake Total 440 ml Balance 440 ml Intake Oral 440 ml # Voids 2 Objective HEAD AND NECK: Shows no JVD. LUNGS: Clear. CARDIOVASCULAR: regular S1 and S2 with no gallop or murmur. ABDOMEN: Soft and nontender. Obese. EXTREMITIES: 1+ pitting edema. GAEL MAXWELL Aug 11, 2016 15:47
[2016-08-11 16:00] VITALS: BP 144/92
--- NOTE | 2016-08-11 19:29 | Pulmonology Progress Note ---
Assessment/Plan Problems: (1) ACS (acute coronary syndrome) (2) CHF (congestive heart failure) (3) Morbid obesity (4) Osteosarcoma (5) Hepatitis C Assessment/Plan doing better chest pain better pain consult was fired by the patient all labs and noted reviewed cardio consult reviewed no reason for hospitalization Subjective ROS Limited/Unobtainable: No Interval Events: refusing to leave Allergies: Coded Allergies: KETOROLAC (Verified Allergy, Severe, 08/06/16) ASPIRIN (Verified Allergy, Intermediate, 08/06/16) CEPHALEXIN (Verified Allergy, Mild, 12/13/14) PEANUT (Verified Allergy, Unknown, 11/19/15) Objective Last 24 Hour Vital Signs Date Time Temp Pulse Resp B/P Pulse Ox O2 Delivery O2 Flow Rate FiO2 08/11/16 16:00 96.9 96 18 144/92 99 Room Air 08/11/16 16:00 97 08/11/16 12:00 97.0 92 18 142/78 98 Room Air 08/11/16 12:00 114 08/11/16 08:43 144/96 08/11/16 08:43 94 144/96 08/11/16 08:00 79 08/11/16 08:00 96.9 94 18 144/96 96 Room Air 08/11/16 07:55 89 20 Room Air 21 08/11/16 07:51 Room Air 08/11/16 07:50 95 Room Air 08/11/16 04:00 88 08/11/16 00:06 98.6 89 21 141/78 96 Nasal Cannula 08/11/16 00:00 79 08/10/16 20:10 98.3 90 20 144/85 98 Room Air 08/10/16 20:02 97 Room Air 08/10/16 20:02 Room Air 08/10/16 20:02 88 20 Room Air 21 08/10/16 20:00 87 Intake and Output 08/10/16 08/11/16 19:00 07:00 Intake Total 440 ml Balance 440 ml Intake Oral 440 ml # Voids 2 Objective General Appearance: WD/WN HEENT: normocephalic, anicteric Cardiovascular: normal peripheral pulses, regular rhythm Abdomen: normal bowel sounds, soft, non tender Genitourinary: normal external genitalia Skin: no rash Current Medications Medications (Trade) Dose Ordered Sig/Robert Route PRN Reason Start Time Stop Time Status Last Admin Dose Admin Acetaminophen (Tylenol) 650 mg Q4H PRN ORAL FEVER 08/06/16 07:45 09/05/16 07:44 Amitriptyline HCl (Elavil) 25 mg BEDTIME ORAL 08/06/16 21:00 09/05/16 20:59 08/10/16 20:29 Amlodipine Besylate (Norvasc) 10 mg DAILY ORAL 08/06/16 10:00 09/05/16 09:59 08/11/16 08:43 Calcium Carbonate (Tums) 500 mg Q4H PRN ORAL dyspepsia 08/06/16 07:45 09/05/16 07:44 08/10/16 01:08 Carbamazepine (TEGretol) 300 mg Q12HR ORAL 08/06/16 10:00 09/05/16 09:59 08/11/16 08:44 Diltiazem HCl (Cardizem) 10 mg Q1H PRN IV heart rate more than 120, 08/06/16 07:45 09/05/16 07:44 Divalproex Sodium (Depakote ER) 1,000 mg EVERY 12 HOURS ORAL 08/06/16 10:00 09/05/16 09:59 08/11/16 08:42 Enalaprilat (Vasotec) 2.5 mg Q6H PRN IV sbp more than 160 08/06/16 07:45 09/05/16 07:44 Fentanyl (Duragesic) 1 patch Q72H TDERMAL 08/08/16 21:30 08/15/16 21:29 08/08/16 21:38 Fluoxetine HCl (PROzac) 20 mg DAILY ORAL 08/06/16 10:00 09/05/16 09:59 08/11/16 08:44 Heparin Sodium (Porcine) (Heparin 5000 units/ml) 5,000 units EVERY 12 HOURS SUBQ 08/06/16 10:00 09/05/16 09:59 08/11/16 08:45 Hydromorphone HCl (Dilaudid) 2 mg Q2H PRN IVP For Pain 08/06/16 23:15 08/13/16 23:14 08/11/16 17:20 Lisinopril (Prinivil) 20 mg DAILY ORAL 08/06/16 10:00 09/05/16 09:59 08/11/16 08:43 Methocarbamol (Robaxin) 750 mg QIDPRN PRN ORAL Muscle Spasm 08/06/16 08:30 09/05/16 08:29 Naloxone HCl (Narcan) 0.1 mg STAT PRN IV Sedation scale 3 or 4 08/06/16 11:00 09/05/16 10:59 Neomycin/ Polymyxin/ Bacitracin (Neosporin) 1 applic BID PRN TOPIC Itching/Pruritis 08/10/16 23:00 09/09/16 22:59 08/11/16 00:14 Nitroglycerin (Ntg) 0.4 mg Q5M PRN SL Prn Chest Pain 08/06/16 07:45 09/05/16 07:44 Ondansetron HCl (Zofran) 4 mg Q6H PRN IVP Nausea & Vomiting 08/06/16 07:45 09/05/16 07:44 Oxycodone/ Acetaminophen (Percocet 10/325) 1 tab Q4H PRN ORAL moderate breakthrough pain 08/06/16 18:15 08/13/16 18:14 Pantoprazole (Protonix) 40 mg DAILY ORAL 08/06/16 10:00 09/05/16 09:59 08/11/16 08:44 Phenytoin (Dilantin) 250 mg DAILY ORAL 08/06/16 10:00 09/05/16 09:59 08/11/16 08:42 Polyethylene Glycol (Miralax) 17 gm DAILYPRN PRN ORAL Constipation 08/06/16 07:45 09/05/16 07:44 Pregabalin (Lyrica) 100 mg THREE TIMES A DAY ORAL 08/06/16 18:30 09/05/16 18:29 08/07/16 09:33 Temazepam (Restoril) 15 mg HSPRN PRN ORAL Insomnia 08/06/16 07:45 08/13/16 07:44 Topiramate (Topamax) 50 mg TWICE A DAY ORAL 08/06/16 10:00 09/05/16 09:59 08/11/16 17:21 Trazodone HCl (Desyrel) 100 mg BEDTIME ORAL 08/06/16 21:00 09/05/16 20:59 08/10/16 20:29 LAUREN OCHOA Aug 11, 2016 19:29
[2016-08-11 20:00] VITALS: BP 129/91
[2016-08-11] MEDS: TraZODone 100mg tab ORAL SCH (20:53)
--- NOTE | 2016-08-11 21:49 | Infectious Diseases Prog Note ---
Assessment/Plan Problems: (1) Boil, hand Assessment & Plan: S/P autodrainage , will give doxycycline for 7 days (2) Chest pain Assessment & Plan: rule out ACS, pending stress test, cardiology is following (3) CHF (congestive heart failure) Assessment & Plan: with exacerbation, improved, continue diuresis, monitor UOP , and daily weight (4) Leukocytosis Assessment & Plan: resolved, suspect dehydration related, blood culture is negative , monitor WBC Subjective Constitutional: Reports: no symptoms HEENT: Reports: no symptoms Respiratory: Reports: no symptoms Breasts: Reports: no symptoms Cardiovascular: Reports: no symptoms Gastrointestinal/Abdominal: Reports: no symptoms Genitourinary: Reports: no symptoms Neurologic: Reports: no symptoms Psychiatric: Reports: anxiety Skin: Reports: other - right hand boil Allergies: Coded Allergies: KETOROLAC (Verified Allergy, Severe, 08/06/16) ASPIRIN (Verified Allergy, Intermediate, 08/06/16) CEPHALEXIN (Verified Allergy, Mild, 12/13/14) PEANUT (Verified Allergy, Unknown, 11/19/15) Objective Vital Signs Last 24 Hour Vital Signs Date Time Temp Pulse Resp B/P Pulse Ox O2 Delivery O2 Flow Rate FiO2 08/11/16 20:00 92 08/11/16 20:00 97.9 92 22 129/91 94 Room Air 08/11/16 19:30 96 Nasal Cannula 2.0 28 08/11/16 19:30 90 20 Nasal Cannula 2.0 28 08/11/16 19:30 Nasal Cannula 2.0 28 08/11/16 16:00 96.9 96 18 144/92 99 Room Air 08/11/16 16:00 97 08/11/16 12:00 97.0 92 18 142/78 98 Room Air 08/11/16 12:00 114 08/11/16 08:43 144/96 08/11/16 08:43 94 144/96 08/11/16 08:00 79 08/11/16 08:00 96.9 94 18 144/96 96 Room Air 08/11/16 07:55 89 20 Room Air 21 08/11/16 07:51 Room Air 08/11/16 07:50 95 Room Air 08/11/16 04:00 88 08/11/16 00:06 98.6 89 21 141/78 96 Nasal Cannula 08/11/16 00:00 79 Height (Feet): 5 Height (Inches): 10.00 Weight (Pounds): 113 General Appearance: WD/WN, no acute distress HEENT: normocephalic, atraumatic, anicteric, mucous membranes moist Respiratory/Chest: chest wall non-tender, lungs clear, normal breath sounds, no respiratory distress, no accessory muscle use Cardiovascular: normal peripheral pulses, normal rate, regular rhythm, no gallop/murmur Abdomen: normal bowel sounds, soft, non tender, no organomegaly, non distended , no mass, no scars Extremities: no cyanosis, no clubbing, other - right dorsal hand boil , dry with mild erythema Current Medications Medications (Trade) Dose Ordered Sig/Robert Route PRN Reason Start Time Stop Time Status Last Admin Dose Admin Acetaminophen (Tylenol) 650 mg Q4H PRN ORAL FEVER 08/06/16 07:45 09/05/16 07:44 Amitriptyline HCl (Elavil) 25 mg BEDTIME ORAL 08/06/16 21:00 09/05/16 20:59 08/11/16 20:53 Amlodipine Besylate (Norvasc) 10 mg DAILY ORAL 08/06/16 10:00 09/05/16 09:59 08/11/16 08:43 Calcium Carbonate (Tums) 500 mg Q4H PRN ORAL dyspepsia 08/06/16 07:45 09/05/16 07:44 08/10/16 01:08 Carbamazepine (TEGretol) 300 mg Q12HR ORAL 08/06/16 10:00 09/05/16 09:59 08/11/16 20:53 Diltiazem HCl (Cardizem) 10 mg Q1H PRN IV heart rate more than 120, 08/06/16 07:45 09/05/16 07:44 Divalproex Sodium (Depakote ER) 1,000 mg EVERY 12 HOURS ORAL 08/06/16 10:00 09/05/16 09:59 08/11/16 20:52 Enalaprilat (Vasotec) 2.5 mg Q6H PRN IV sbp more than 160 08/06/16 07:45 09/05/16 07:44 Fentanyl (Duragesic) 1 patch Q72H TDERMAL 08/08/16 21:30 08/15/16 21:29 08/11/16 21:08 Fluoxetine HCl (PROzac) 20 mg DAILY ORAL 08/06/16 10:00 09/05/16 09:59 08/11/16 08:44 Heparin Sodium (Porcine) (Heparin 5000 units/ml) 5,000 units EVERY 12 HOURS SUBQ 08/06/16 10:00 09/05/16 09:59 08/11/16 20:54 Hydromorphone HCl (Dilaudid) 2 mg Q2H PRN IVP For Pain 08/06/16 23:15 08/13/16 23:14 08/11/16 21:44 Lisinopril (Prinivil) 20 mg DAILY ORAL 08/06/16 10:00 09/05/16 09:59 08/11/16 08:43 Methocarbamol (Robaxin) 750 mg QIDPRN PRN ORAL Muscle Spasm 08/06/16 08:30 09/05/16 08:29 Naloxone HCl (Narcan) 0.1 mg STAT PRN IV Sedation scale 3 or 4 08/06/16 11:00 09/05/16 10:59 Neomycin/ Polymyxin/ Bacitracin (Neosporin) 1 applic BID PRN TOPIC Itching/Pruritis 08/10/16 23:00 09/09/16 22:59 08/11/16 00:14 Nitroglycerin (Ntg) 0.4 mg Q5M PRN SL Prn Chest Pain 08/06/16 07:45 09/05/16 07:44 Ondansetron HCl (Zofran) 4 mg Q6H PRN IVP Nausea & Vomiting 08/06/16 07:45 09/05/16 07:44 Oxycodone/ Acetaminophen (Percocet 10/325) 1 tab Q4H PRN ORAL moderate breakthrough pain 08/06/16 18:15 08/13/16 18:14 Pantoprazole (Protonix) 40 mg DAILY ORAL 08/06/16 10:00 09/05/16 09:59 08/11/16 08:44 Phenytoin (Dilantin) 250 mg DAILY ORAL 08/06/16 10:00 09/05/16 09:59 08/11/16 08:42 Polyethylene Glycol (Miralax) 17 gm DAILYPRN PRN ORAL Constipation 08/06/16 07:45 09/05/16 07:44 Pregabalin (Lyrica) 100 mg THREE TIMES A DAY ORAL 08/06/16 18:30 09/05/16 18:29 08/07/16 09:33 Temazepam (Restoril) 15 mg HSPRN PRN ORAL Insomnia 08/06/16 07:45 08/13/16 07:44 Topiramate (Topamax) 50 mg TWICE A DAY ORAL 08/06/16 10:00 09/05/16 09:59 08/11/16 17:21 Trazodone HCl (Desyrel) 100 mg BEDTIME ORAL 08/06/16 21:00 09/05/16 20:59 08/11/16 20:53 Uri Tesfaye M.D. Aug 11, 2016 21:49
[2016-08-12 08:00] VITALS: BP 140/86
[2016-08-12] MEDS: Topiramate 100mg tab ORAL SCH ×2 (08:11→17:46)
[2016-08-12] MEDS: Depakote ER 500mg tab ORAL SCH ×2 (08:11→20:38)
[2016-08-12] MEDS: Lyrica 50mg cap ORAL SCH ×3 (08:13→17:46)
[2016-08-12] MEDS: carBAMazepine 200mg tab ORAL SCH ×2 (08:13→20:33)
[2016-08-12] MEDS: Phenytoin Susp 100mg/4ml ORAL SCH (08:13)
[2016-08-12] MEDS: Lisinopril 20mg tab ORAL SCH (08:14)
[2016-08-12] MEDS: Heparin 5000 units/ml inj SUBQ SCH ×2 (08:16→20:42)
[2016-08-12 12:00] VITALS: BP 108/72
--- NOTE | 2016-08-12 12:37 | Pulmonology Progress Note ---
Assessment/Plan Problems: (1) ACS (acute coronary syndrome) (2) CHF (congestive heart failure) (3) Morbid obesity (4) Osteosarcoma (5) Hepatitis C Assessment/Plan doing better chest pain better, stress study was negative pain consult was fired by the patient all labs and noted reviewed no reason for hospitalization pt refusing to leave, appealing discharge, Subjective ROS Limited/Unobtainable: No Constitutional: Reports: no symptoms HEENT: Repors: no symptoms Respiratory: Reports: no symptoms Cardiovascular: Reports: no symptoms Allergies: Coded Allergies: KETOROLAC (Verified Allergy, Severe, 08/06/16) ASPIRIN (Verified Allergy, Intermediate, 08/06/16) CEPHALEXIN (Verified Allergy, Mild, 12/13/14) PEANUT (Verified Allergy, Unknown, 11/19/15) Uncoded Allergies: fish (Allergy, Unknown, 08/12/16) Objective Last 24 Hour Vital Signs Date Time Temp Pulse Resp B/P Pulse Ox O2 Delivery O2 Flow Rate FiO2 08/12/16 08:14 129/91 08/12/16 08:14 86 129/91 08/12/16 08:00 94 08/12/16 08:00 97.2 89 18 140/86 94 Room Air 08/12/16 07:38 98 Nasal Cannula 2.0 28 08/12/16 07:38 Nasal Cannula 2.0 28 08/12/16 07:38 86 20 Nasal Cannula 2.0 28 08/12/16 04:00 79 08/12/16 00:00 80 08/11/16 20:00 92 08/11/16 20:00 97.9 92 22 129/91 94 Room Air 08/11/16 19:30 96 Nasal Cannula 2.0 28 08/11/16 19:30 90 20 Nasal Cannula 2.0 28 08/11/16 19:30 Nasal Cannula 2.0 28 08/11/16 16:00 96.9 96 18 144/92 99 Room Air 08/11/16 16:00 97 Intake and Output 08/11/16 08/12/16 19:00 07:00 Intake Total 680 ml Balance 680 ml Intake Oral 680 ml # Voids 4 1 # Bowel Movements 1 Objective General Appearance: WD/WN HEENT: normocephalic, anicteric Cardiovascular: normal peripheral pulses, regular rhythm Abdomen: normal bowel sounds, soft, non tender Genitourinary: normal external genitalia Skin: no rash Current Medications Medications (Trade) Dose Ordered Sig/Robert Route PRN Reason Start Time Stop Time Status Last Admin Dose Admin Acetaminophen (Tylenol) 650 mg Q4H PRN ORAL FEVER 08/06/16 07:45 09/05/16 07:44 Amitriptyline HCl (Elavil) 25 mg BEDTIME ORAL 08/06/16 21:00 09/05/16 20:59 08/11/16 20:53 Amlodipine Besylate (Norvasc) 10 mg DAILY ORAL 08/06/16 10:00 09/05/16 09:59 08/12/16 08:14 Calcium Carbonate (Tums) 500 mg Q4H PRN ORAL dyspepsia 08/06/16 07:45 09/05/16 07:44 08/10/16 01:08 Carbamazepine (TEGretol) 300 mg Q12HR ORAL 08/06/16 10:00 09/05/16 09:59 08/12/16 08:13 Diltiazem HCl (Cardizem) 10 mg Q1H PRN IV heart rate more than 120, 08/06/16 07:45 09/05/16 07:44 Divalproex Sodium (Depakote ER) 1,000 mg EVERY 12 HOURS ORAL 08/06/16 10:00 09/05/16 09:59 08/12/16 08:11 Doxycycline Monohydrate (Vibramycin) 100 mg EVERY 12 HOURS ORAL 08/12/16 09:45 08/19/16 09:44 08/12/16 10:08 Enalaprilat (Vasotec) 2.5 mg Q6H PRN IV sbp more than 160 08/06/16 07:45 09/05/16 07:44 Fentanyl (Duragesic) 1 patch Q72H TDERMAL 08/08/16 21:30 08/15/16 21:29 08/11/16 21:08 Fluoxetine HCl (PROzac) 20 mg DAILY ORAL 08/06/16 10:00 09/05/16 09:59 08/12/16 08:11 Heparin Sodium (Porcine) (Heparin 5000 units/ml) 5,000 units EVERY 12 HOURS SUBQ 08/06/16 10:00 09/05/16 09:59 08/12/16 08:16 Hydromorphone HCl (Dilaudid) 2 mg Q2H PRN IVP For Pain 08/06/16 23:15 08/13/16 23:14 08/12/16 11:24 Lisinopril (Prinivil) 20 mg DAILY ORAL 08/06/16 10:00 09/05/16 09:59 08/12/16 08:14 Methocarbamol (Robaxin) 750 mg QIDPRN PRN ORAL Muscle Spasm 08/06/16 08:30 09/05/16 08:29 Naloxone HCl (Narcan) 0.1 mg STAT PRN IV Sedation scale 3 or 4 08/06/16 11:00 09/05/16 10:59 Neomycin/ Polymyxin/ Bacitracin (Neosporin) 1 applic BID PRN TOPIC Itching/Pruritis 08/10/16 23:00 09/09/16 22:59 08/11/16 00:14 Nitroglycerin (Ntg) 0.4 mg Q5M PRN SL Prn Chest Pain 08/06/16 07:45 09/05/16 07:44 Ondansetron HCl (Zofran) 4 mg Q6H PRN IVP Nausea & Vomiting 08/06/16 07:45 09/05/16 07:44 Oxycodone/ Acetaminophen (Percocet 10/325) 1 tab Q4H PRN ORAL moderate breakthrough pain 08/06/16 18:15 08/13/16 18:14 Pantoprazole (Protonix) 40 mg DAILY ORAL 08/06/16 10:00 09/05/16 09:59 08/12/16 08:28 Phenytoin (Dilantin) 250 mg DAILY ORAL 08/06/16 10:00 09/05/16 09:59 08/12/16 08:13 Polyethylene Glycol (Miralax) 17 gm DAILYPRN PRN ORAL Constipation 08/06/16 07:45 09/05/16 07:44 Pregabalin (Lyrica) 100 mg THREE TIMES A DAY ORAL 08/06/16 18:30 09/05/16 18:29 08/12/16 08:13 Temazepam (Restoril) 15 mg HSPRN PRN ORAL Insomnia 08/06/16 07:45 08/13/16 07:44 Topiramate (Topamax) 50 mg TWICE A DAY ORAL 08/06/16 10:00 09/05/16 09:59 08/12/16 08:11 Trazodone HCl (Desyrel) 100 mg BEDTIME ORAL 08/06/16 21:00 09/05/16 20:59 08/11/16 20:53 LAUREN OCHOA Aug 12, 2016 12:37
[2016-08-12] MEDS: Neosporin Oint Ud Pkt TOPIC PRN (13:00)
--- NOTE | 2016-08-12 13:12 | Cardiac Electrophysiology PN ---
Assessment/Plan Assessment/Plan 1. Atypical chest pain. Ruled out for myocardial infarction. His EKG is nonischemic and his echocardiogram showed normal left ventricular systolic function. No chest pain. Nuclear stress test showed no ischemia. 2. Hypertension. Continue Norvasc 10 mg daily and lisinopril 20 mg daily. 3. Chronic obstructive pulmonary disease. 4. Psychosis on Desyrel and Elavil. 5. Seizure disorder, on Tegretol. 6. Morbid obesity. BRADLEY RN OK to DC from cardiac stand point but patient appealed discharge. DC Tele Subjective Subjective No chest pain or SOB. Nuclear stress test was non ischemic. Complains of hematuria and left hand pain. Objective Last 24 Hour Vital Signs Date Time Temp Pulse Resp B/P Pulse Ox O2 Delivery O2 Flow Rate FiO2 08/12/16 12:00 98.0 84 18 108/72 96 Room Air 08/12/16 12:00 110 08/12/16 08:14 129/91 08/12/16 08:14 86 129/91 08/12/16 08:00 94 08/12/16 08:00 97.2 89 18 140/86 94 Room Air 08/12/16 07:38 98 Nasal Cannula 2.0 28 08/12/16 07:38 Nasal Cannula 2.0 28 08/12/16 07:38 86 20 Nasal Cannula 2.0 28 08/12/16 04:00 79 08/12/16 00:00 80 08/11/16 20:00 92 08/11/16 20:00 97.9 92 22 129/91 94 Room Air 08/11/16 19:30 96 Nasal Cannula 2.0 28 08/11/16 19:30 90 20 Nasal Cannula 2.0 28 08/11/16 19:30 Nasal Cannula 2.0 28 08/11/16 16:00 96.9 96 18 144/92 99 Room Air 08/11/16 16:00 97 Intake and Output 08/11/16 08/12/16 19:00 07:00 Intake Total 680 ml Balance 680 ml Intake Oral 680 ml # Voids 4 1 # Bowel Movements 1 Laboratory Tests Test 08/12/16 10:00 Urine Color Pending Urine Appearance Pending Urine pH Pending Urine Specific [place] Pending Urine Protein Pending Urine Glucose (UA) Pending Urine Ketones Pending Urine Occult Blood Pending Urine Nitrite Pending Urine Bilirubin Pending Urine Urobilinogen Pending Urine Leukocyte Esterase Pending Urine RBC Pending Urine WBC Pending Urine Squamous Epithelial Cells Pending Urine Bacteria Pending Objective HEAD AND NECK: Shows no JVD. LUNGS: Clear. CARDIOVASCULAR: regular S1 and S2 with no gallop or murmur. ABDOMEN: Soft and nontender. Obese. EXTREMITIES: No pitting edema. GAEL MAXWELL Aug 12, 2016 13:12
[2016-08-12 13:18] LABS: APPEARANCE,URINE TURBID; KETONES,URINE 2+ (NEGATIVE); LEUKOCYTE ESTERASE ,URINE 2+ (NEGATIVE); NITRITE,URINE NEGATIVE (NEGATIVE); PH,URINE 7 (4.5-8.0); PROTEIN,URINE 2+ (NEGATIVE); UROBILINOGEN,URINE NORMAL MG/DL (0.0-1.0)
[2016-08-12 13:30] LABS: BACTERIA,URINE MODERATE /HPF; RBC,URINE TNTC /HPF (0 - 0); SQUAMOUS EPITHELIAL CELL,UR MANY /LPF (NONE/OCC)
[2016-08-12 13:31] LABS: AMORPHOUS SEDIMENT,UR MANY /LPF
--- NOTE | 2016-08-12 15:32 | Infectious Diseases Prog Note ---
Assessment/Plan Problems: (1) Boil, hand Assessment & Plan: S/P autodrainage , will give doxycycline for 7 days (2) Chest pain Assessment & Plan: rule out ACS, pending stress test, cardiology is following (3) CHF (congestive heart failure) Assessment & Plan: with exacerbation, improved, continue diuresis, monitor UOP , and daily weight (4) Leukocytosis Assessment & Plan: resolved, suspect dehydration related, blood culture is negative , monitor WBC Subjective Constitutional: Reports: no symptoms HEENT: Reports: no symptoms Respiratory: Reports: no symptoms Breasts: Reports: no symptoms Cardiovascular: Reports: no symptoms Gastrointestinal/Abdominal: Reports: no symptoms Genitourinary: Reports: no symptoms Neurologic: Reports: no symptoms Psychiatric: Reports: no symptoms Skin: Reports: no symptoms Allergies: Coded Allergies: KETOROLAC (Verified Allergy, Severe, 08/06/16) ASPIRIN (Verified Allergy, Intermediate, 08/06/16) CEPHALEXIN (Verified Allergy, Mild, 12/13/14) PEANUT (Verified Allergy, Unknown, 11/19/15) Uncoded Allergies: fish (Allergy, Unknown, 08/12/16) Objective Vital Signs Last 24 Hour Vital Signs Date Time Temp Pulse Resp B/P Pulse Ox O2 Delivery O2 Flow Rate FiO2 08/12/16 12:00 98.0 84 18 108/72 96 Room Air 08/12/16 12:00 110 08/12/16 08:14 129/91 08/12/16 08:14 86 129/91 08/12/16 08:00 94 08/12/16 08:00 97.2 89 18 140/86 94 Room Air 08/12/16 07:38 98 Nasal Cannula 2.0 28 08/12/16 07:38 Nasal Cannula 2.0 28 08/12/16 07:38 86 20 Nasal Cannula 2.0 28 08/12/16 04:00 79 08/12/16 00:00 80 08/11/16 20:00 92 08/11/16 20:00 97.9 92 22 129/91 94 Room Air 08/11/16 19:30 96 Nasal Cannula 2.0 28 08/11/16 19:30 90 20 Nasal Cannula 2.0 28 08/11/16 19:30 Nasal Cannula 2.0 28 08/11/16 16:00 96.9 96 18 144/92 99 Room Air 08/11/16 16:00 97 Height (Feet): 5 Height (Inches): 10.00 Weight (Pounds): 328 General Appearance: WD/WN, no acute distress HEENT: normocephalic, atraumatic, anicteric, mucous membranes moist, PERRL Respiratory/Chest: chest wall non-tender, lungs clear, normal breath sounds, no respiratory distress Cardiovascular: normal peripheral pulses, normal rate, regular rhythm, no gallop/murmur Abdomen: normal bowel sounds, soft, non tender, no organomegaly, non distended , no mass, no scars Extremities: no cyanosis, no clubbing Laboratory Tests Test 08/12/16 10:00 Urine Color Pale yellow Urine Appearance Turbid Urine pH 7 (4.5-8.0) Urine Specific [place] 1.015 (1.005-1.035) Urine Protein 2+ (NEGATIVE) H Urine Glucose (UA) 1+ (NEGATIVE) H Urine Ketones 2+ (NEGATIVE) H Urine Occult Blood 5+ (NEGATIVE) H Urine Nitrite Negative (NEGATIVE) Urine Bilirubin Negative (NEGATIVE) Urine Urobilinogen Normal MG/DL (0.0-1.0) Urine Leukocyte Esterase 2+ (NEGATIVE) H Urine RBC Tntc /HPF (0 - 0) H Urine WBC 10-15 /HPF (0 - 0) H Urine Squamous Epithelial Cells Many /LPF (NONE/OCC) H Urine Amorphous Sediment Many /LPF (NONE) H Urine Bacteria Moderate /HPF (NONE) H Current Medications Medications (Trade) Dose Ordered Sig/Robert Route PRN Reason Start Time Stop Time Status Last Admin Dose Admin Acetaminophen (Tylenol) 650 mg Q4H PRN ORAL FEVER 08/06/16 07:45 09/05/16 07:44 Amitriptyline HCl (Elavil) 25 mg BEDTIME ORAL 08/06/16 21:00 09/05/16 20:59 08/11/16 20:53 Amlodipine Besylate (Norvasc) 10 mg DAILY ORAL 08/06/16 10:00 09/05/16 09:59 08/12/16 08:14 Calcium Carbonate (Tums) 500 mg Q4H PRN ORAL dyspepsia 08/06/16 07:45 09/05/16 07:44 08/10/16 01:08 Carbamazepine (TEGretol) 300 mg Q12HR ORAL 08/06/16 10:00 09/05/16 09:59 08/12/16 08:13 Diltiazem HCl (Cardizem) 10 mg Q1H PRN IV heart rate more than 120, 08/06/16 07:45 09/05/16 07:44 Divalproex Sodium (Depakote ER) 1,000 mg EVERY 12 HOURS ORAL 08/06/16 10:00 09/05/16 09:59 08/12/16 08:11 Doxycycline Monohydrate (Vibramycin) 100 mg EVERY 12 HOURS ORAL 08/12/16 09:45 08/19/16 09:44 08/12/16 10:08 Enalaprilat (Vasotec) 2.5 mg Q6H PRN IV sbp more than 160 08/06/16 07:45 09/05/16 07:44 Fentanyl (Duragesic) 1 patch Q72H TDERMAL 08/08/16 21:30 08/15/16 21:29 08/11/16 21:08 Fluoxetine HCl (PROzac) 20 mg DAILY ORAL 08/06/16 10:00 09/05/16 09:59 08/12/16 08:11 Heparin Sodium (Porcine) (Heparin 5000 units/ml) 5,000 units EVERY 12 HOURS SUBQ 08/06/16 10:00 09/05/16 09:59 08/12/16 08:16 Hydromorphone HCl (Dilaudid) 2 mg Q2H PRN IVP For Pain 08/06/16 23:15 08/13/16 23:14 08/12/16 11:24 Lisinopril (Prinivil) 20 mg DAILY ORAL 08/06/16 10:00 09/05/16 09:59 08/12/16 08:14 Methocarbamol (Robaxin) 750 mg QIDPRN PRN ORAL Muscle Spasm 08/06/16 08:30 09/05/16 08:29 Naloxone HCl (Narcan) 0.1 mg STAT PRN IV Sedation scale 3 or 4 08/06/16 11:00 09/05/16 10:59 Neomycin/ Polymyxin/ Bacitracin (Neosporin) 1 applic BID PRN TOPIC Itching/Pruritis 08/10/16 23:00 09/09/16 22:59 08/12/16 13:00 Nitroglycerin (Ntg) 0.4 mg Q5M PRN SL Prn Chest Pain 08/06/16 07:45 09/05/16 07:44 Ondansetron HCl (Zofran) 4 mg Q6H PRN IVP Nausea & Vomiting 08/06/16 07:45 09/05/16 07:44 Oxycodone/ Acetaminophen (Percocet 10/325) 1 tab Q4H PRN ORAL moderate breakthrough pain 08/06/16 18:15 08/13/16 18:14 Pantoprazole (Protonix) 40 mg DAILY ORAL 08/06/16 10:00 09/05/16 09:59 08/12/16 08:28 Phenytoin (Dilantin) 250 mg DAILY ORAL 08/06/16 10:00 09/05/16 09:59 08/12/16 08:13 Polyethylene Glycol (Miralax) 17 gm DAILYPRN PRN ORAL Constipation 08/06/16 07:45 09/05/16 07:44 Pregabalin (Lyrica) 100 mg THREE TIMES A DAY ORAL 08/06/16 18:30 09/05/16 18:29 08/12/16 12:54 Temazepam (Restoril) 15 mg HSPRN PRN ORAL Insomnia 08/06/16 07:45 08/13/16 07:44 Topiramate (Topamax) 50 mg TWICE A DAY ORAL 08/06/16 10:00 09/05/16 09:59 08/12/16 08:11 Trazodone HCl (Desyrel) 100 mg BEDTIME ORAL 08/06/16 21:00 09/05/16 20:59 08/11/16 20:53 Uri Tesfaye M.D. Aug 12, 2016 15:32
[2016-08-12 16:00] VITALS: BP 132/78
--- NOTE | 2016-08-12 16:18 | Diagnostic Imaging Report ---
Indication: PAIN Technique: 3 views left hand Comparison: none Findings: The joint spaces are preserved. No acute fractures. No dislocations. There is ulnar minus variance Impression: Negative
[2016-08-12 20:00] VITALS: BP 119/73
--- NOTE | 2016-08-12 20:01 | General Progress Note ---
Assessment/Plan Problem List: (1) GERD (gastroesophageal reflux disease) ICD Codes: K21.9 - Gastro-esophageal reflux disease without esophagitis SNOMED: 564948044 (2) CHF (congestive heart failure) ICD Codes: I50.9 - Heart failure, unspecified SNOMED: 13724403 (3) ACS (acute coronary syndrome) ICD Codes: I24.9 - Acute ischemic heart disease, unspecified SNOMED: 045067036 (4) Chest pain ICD Codes: R07.9 - Chest pain, unspecified SNOMED: 08014448 Status: progressing Assessment/Plan chest pain stress test done cardiology already cleared him for dc on pain meds Subjective ROS Limited/Unobtainable: Yes Allergies: Coded Allergies: KETOROLAC (Verified Allergy, Severe, 08/06/16) ASPIRIN (Verified Allergy, Intermediate, 08/06/16) CEPHALEXIN (Verified Allergy, Mild, 12/13/14) PEANUT (Verified Allergy, Unknown, 11/19/15) Uncoded Allergies: fish (Allergy, Unknown, 08/12/16) Objective Last 24 Hour Vital Signs Date Time Temp Pulse Resp B/P Pulse Ox O2 Delivery O2 Flow Rate FiO2 08/12/16 16:00 98.1 95 18 132/78 98 Room Air 08/12/16 12:00 98.0 84 18 108/72 96 Room Air 08/12/16 12:00 110 08/12/16 08:14 129/91 08/12/16 08:14 86 129/91 08/12/16 08:00 94 08/12/16 08:00 97.2 89 18 140/86 94 Room Air 08/12/16 07:38 98 Nasal Cannula 2.0 28 08/12/16 07:38 Nasal Cannula 2.0 28 08/12/16 07:38 86 20 Nasal Cannula 2.0 28 08/12/16 04:00 79 08/12/16 00:00 80 08/11/16 20:00 92 08/11/16 20:00 97.9 92 22 129/91 94 Room Air Intake and Output 08/11/16 08/12/16 19:00 07:00 Intake Total 680 ml Balance 680 ml Intake Oral 680 ml # Voids 4 1 # Bowel Movements 1 Laboratory Tests 08/12/16 10:00: Urine Color Pale yellow, Urine Appearance Turbid, Urine pH 7, Urine Specific [place] 1.015, Urine Protein 2+H, Urine Glucose (UA) 1+H, Urine Ketones 2+H, Urine Occult Blood 5+H, Urine Nitrite Negative, Urine Bilirubin Negative, Urine Urobilinogen Normal, Urine Leukocyte Esterase 2+H, Urine RBC TntcH, Urine WBC 10 -15H, Urine Squamous Epithelial Cells ManyH, Urine Amorphous Sediment ManyH, Urine Bacteria ModerateH Height (Feet): 5 Height (Inches): 10.00 Weight (Pounds): 328 General Appearance: confused Teddy Hernandez MD Aug 12, 2016 20:01
[2016-08-12] MEDS: TraZODone 100mg tab ORAL SCH (20:33)
[2016-08-13] VITALS: BP 111/72
[2016-08-13 08:00] VITALS: BP 124/69
[2016-08-13] MEDS: Phenytoin Susp 100mg/4ml ORAL SCH (08:15)
[2016-08-13] MEDS: Lyrica 50mg cap ORAL SCH ×3 (08:16→18:53)
[2016-08-13] MEDS: Lisinopril 20mg tab ORAL SCH (08:17)
[2016-08-13] MEDS: Depakote ER 500mg tab ORAL SCH ×2 (08:18→21:01)
[2016-08-13] MEDS: carBAMazepine 200mg tab ORAL SCH ×2 (08:18→21:02)
[2016-08-13] MEDS: Heparin 5000 units/ml inj SUBQ SCH ×2 (08:19→21:04)
[2016-08-13] MEDS: Topiramate 100mg tab ORAL SCH ×2 (08:19→18:52)
--- NOTE | 2016-08-13 11:48 | General Progress Note ---
Assessment/Plan Problem List: (1) GERD (gastroesophageal reflux disease) ICD Codes: K21.9 - Gastro-esophageal reflux disease without esophagitis SNOMED: 303528643 (2) CHF (congestive heart failure) ICD Codes: I50.9 - Heart failure, unspecified SNOMED: 26883047 (3) ACS (acute coronary syndrome) ICD Codes: I24.9 - Acute ischemic heart disease, unspecified SNOMED: 496451180 (4) Chest pain ICD Codes: R07.9 - Chest pain, unspecified SNOMED: 21152716 Status: progressing Assessment/Plan he is appealing the dc cleared by cardiology for dc reviewed chart and labs vitals stable chronic pain syndrome Subjective Allergies: Coded Allergies: KETOROLAC (Verified Allergy, Severe, 08/06/16) ASPIRIN (Verified Allergy, Intermediate, 08/06/16) CEPHALEXIN (Verified Allergy, Mild, 12/13/14) PEANUT (Verified Allergy, Unknown, 11/19/15) Uncoded Allergies: fish (Allergy, Unknown, 08/12/16) Subjective chronic pain Objective Last 24 Hour Vital Signs Date Time Temp Pulse Resp B/P Pulse Ox O2 Delivery O2 Flow Rate FiO2 08/13/16 08:18 87 113/68 08/13/16 08:17 113/68 08/13/16 08:00 81 18 124/69 91 Room Air 08/13/16 00:00 98.1 86 22 111/72 95 Room Air 08/12/16 21:31 94 Room Air 21 08/12/16 21:31 Room Air 08/12/16 21:30 97 20 Room Air 08/12/16 20:00 98.4 96 20 119/73 96 Room Air 08/12/16 16:00 98.1 95 18 132/78 98 Room Air 08/12/16 12:00 98.0 84 18 108/72 96 Room Air 08/12/16 12:00 110 Intake and Output 08/12/16 08/13/16 19:00 07:00 Intake Total 500 ml 500 ml Balance 500 ml 500 ml Intake Oral 500 ml 500 ml # Voids 3 1 # Bowel Movements 1 Height (Feet): 5 Height (Inches): 10.00 Weight (Pounds): 327 Cardiovascular: normal rate Abdomen: non tender Teddy Hernandez MD Aug 13, 2016 11:48
[2016-08-13 12:00] VITALS: BP 120/99
--- NOTE | 2016-08-13 13:06 | Infectious Diseases Prog Note ---
Assessment/Plan Problems: (1) Boil, hand Assessment & Plan: S/P autodrainage , continue doxycycline for 7 days (2) Chest pain Assessment & Plan: resolved , rule out ACS, had stress test, cardiology is following (3) CHF (congestive heart failure) Assessment & Plan: with exacerbation, improved, continue diuresis, monitor UOP , and daily weight (4) Leukocytosis Assessment & Plan: resolved, suspect dehydration related, blood culture is negative , monitor WBC Subjective Constitutional: Reports: no symptoms HEENT: Reports: no symptoms Respiratory: Reports: no symptoms Cardiovascular: Reports: no symptoms Gastrointestinal/Abdominal: Reports: no symptoms Genitourinary: Reports: hematuria Neurologic: Reports: no symptoms Psychiatric: Reports: anxiety, depression Skin: Reports: no symptoms Endocrine: Reports: no symptoms Allergies: Coded Allergies: KETOROLAC (Verified Allergy, Severe, 08/06/16) ASPIRIN (Verified Allergy, Intermediate, 08/06/16) CEPHALEXIN (Verified Allergy, Mild, 12/13/14) PEANUT (Verified Allergy, Unknown, 11/19/15) Uncoded Allergies: fish (Allergy, Unknown, 08/12/16) Objective Vital Signs Last 24 Hour Vital Signs Date Time Temp Pulse Resp B/P Pulse Ox O2 Delivery O2 Flow Rate FiO2 08/13/16 12:00 95 19 120/99 95 Room Air 08/13/16 08:18 87 113/68 08/13/16 08:17 113/68 08/13/16 08:00 81 18 124/69 91 Room Air 08/13/16 06:59 Room Air 08/13/16 06:58 95 Room Air 08/13/16 06:57 89 18 Room Air 08/13/16 00:00 98.1 86 22 111/72 95 Room Air 08/12/16 21:31 94 Room Air 21 08/12/16 21:31 Room Air 08/12/16 21:30 97 20 Room Air 08/12/16 20:00 98.4 96 20 119/73 96 Room Air 08/12/16 16:00 98.1 95 18 132/78 98 Room Air Height (Feet): 5 Height (Inches): 10.00 Weight (Pounds): 327 General Appearance: WD/WN, no acute distress HEENT: normocephalic, atraumatic, anicteric, mucous membranes moist Respiratory/Chest: chest wall non-tender, lungs clear, normal breath sounds, no respiratory distress, no accessory muscle use Cardiovascular: normal peripheral pulses, normal rate, regular rhythm, no gallop/murmur, no JVD Abdomen: normal bowel sounds, soft, non tender, no organomegaly, non distended , no mass Extremities: no cyanosis, no clubbing Skin: no rash, no lesions, other - dry boil on his left hand Microbiology Date/Time Source Procedure Growth Status 08/12/16 10:00 Urine,Clean Catch Urine Culture - Preliminary NO GROWTH Resulted Current Medications Medications (Trade) Dose Ordered Sig/Robert Route PRN Reason Start Time Stop Time Status Last Admin Dose Admin Acetaminophen (Tylenol) 650 mg Q4H PRN ORAL FEVER 08/06/16 07:45 09/05/16 07:44 Amitriptyline HCl (Elavil) 25 mg BEDTIME ORAL 08/06/16 21:00 09/05/16 20:59 08/12/16 20:33 Amlodipine Besylate (Norvasc) 10 mg DAILY ORAL 08/06/16 10:00 09/05/16 09:59 08/13/16 08:18 Calcium Carbonate (Tums) 500 mg Q4H PRN ORAL dyspepsia 08/06/16 07:45 09/05/16 07:44 08/10/16 01:08 Carbamazepine (TEGretol) 300 mg Q12HR ORAL 08/06/16 10:00 09/05/16 09:59 08/13/16 08:18 Diltiazem HCl (Cardizem) 10 mg Q1H PRN IV heart rate more than 120, 08/06/16 07:45 09/05/16 07:44 Divalproex Sodium (Depakote ER) 1,000 mg EVERY 12 HOURS ORAL 08/06/16 10:00 09/05/16 09:59 08/13/16 08:18 Doxycycline Monohydrate (Vibramycin) 100 mg EVERY 12 HOURS ORAL 08/12/16 09:45 08/19/16 09:44 08/13/16 08:15 Enalaprilat (Vasotec) 2.5 mg Q6H PRN IV sbp more than 160 08/06/16 07:45 09/05/16 07:44 Fentanyl (Duragesic) 1 patch Q72H TDERMAL 08/08/16 21:30 08/15/16 21:29 08/11/16 21:08 Fluoxetine HCl (PROzac) 20 mg DAILY ORAL 08/06/16 10:00 09/05/16 09:59 08/13/16 08:18 Heparin Sodium (Porcine) (Heparin 5000 units/ml) 5,000 units EVERY 12 HOURS SUBQ 08/06/16 10:00 09/05/16 09:59 08/12/16 20:42 Hydromorphone HCl (Dilaudid) 2 mg Q2H PRN IVP For Pain 08/06/16 23:15 08/13/16 23:14 08/13/16 12:43 Lisinopril (Prinivil) 20 mg DAILY ORAL 08/06/16 10:00 09/05/16 09:59 08/13/16 08:17 Methocarbamol (Robaxin) 750 mg QIDPRN PRN ORAL Muscle Spasm 08/06/16 08:30 09/05/16 08:29 Naloxone HCl (Narcan) 0.1 mg STAT PRN IV Sedation scale 3 or 4 08/06/16 11:00 09/05/16 10:59 Neomycin/ Polymyxin/ Bacitracin (Neosporin) 1 applic BID PRN TOPIC Itching/Pruritis 08/10/16 23:00 09/09/16 22:59 08/12/16 13:00 Nitroglycerin (Ntg) 0.4 mg Q5M PRN SL Prn Chest Pain 08/06/16 07:45 09/05/16 07:44 Ondansetron HCl (Zofran) 4 mg Q6H PRN IVP Nausea & Vomiting 08/06/16 07:45 09/05/16 07:44 Oxycodone/ Acetaminophen (Percocet 10/325) 1 tab Q4H PRN ORAL moderate breakthrough pain 08/06/16 18:15 08/13/16 18:14 Pantoprazole (Protonix) 40 mg DAILY ORAL 08/06/16 10:00 09/05/16 09:59 08/13/16 08:18 Phenytoin (Dilantin) 250 mg DAILY ORAL 08/06/16 10:00 09/05/16 09:59 08/13/16 08:15 Polyethylene Glycol (Miralax) 17 gm DAILYPRN PRN ORAL Constipation 08/06/16 07:45 09/05/16 07:44 Pregabalin (Lyrica) 100 mg THREE TIMES A DAY ORAL 08/06/16 18:30 09/05/16 18:29 08/13/16 12:42 Topiramate (Topamax) 50 mg TWICE A DAY ORAL 08/06/16 10:00 09/05/16 09:59 08/13/16 08:19 Trazodone HCl (Desyrel) 100 mg BEDTIME ORAL 08/06/16 21:00 09/05/16 20:59 08/12/16 20:33 Uri Tesfaye M.D. Aug 13, 2016 13:06
--- NOTE | 2016-08-13 15:21 | Pulmonology Progress Note ---
Assessment/Plan Problems: (1) ACS (acute coronary syndrome) (2) CHF (congestive heart failure) (3) Morbid obesity (4) Osteosarcoma (5) Hepatitis C Assessment/Plan doing better chest pain better, stress study was negative pain consult was fired by the patient all labs and noted reviewed no reason for hospitalization pt refusing to leave, appealing discharge, awaiting medicare decision. Subjective ROS Limited/Unobtainable: No Constitutional: Reports: no symptoms HEENT: Repors: no symptoms Respiratory: Reports: no symptoms Allergies: Coded Allergies: KETOROLAC (Verified Allergy, Severe, 08/06/16) ASPIRIN (Verified Allergy, Intermediate, 08/06/16) CEPHALEXIN (Verified Allergy, Mild, 12/13/14) PEANUT (Verified Allergy, Unknown, 11/19/15) Uncoded Allergies: fish (Allergy, Unknown, 08/12/16) Objective Last 24 Hour Vital Signs Date Time Temp Pulse Resp B/P Pulse Ox O2 Delivery O2 Flow Rate FiO2 08/13/16 12:00 95 19 120/99 95 Room Air 08/13/16 08:18 87 113/68 08/13/16 08:17 113/68 08/13/16 08:00 81 18 124/69 91 Room Air 08/13/16 06:59 Room Air 08/13/16 06:58 95 Room Air 08/13/16 06:57 89 18 Room Air 08/13/16 00:00 98.1 86 22 111/72 95 Room Air 08/12/16 21:31 94 Room Air 21 08/12/16 21:31 Room Air 08/12/16 21:30 97 20 Room Air 08/12/16 20:00 98.4 96 20 119/73 96 Room Air 08/12/16 16:00 98.1 95 18 132/78 98 Room Air Intake and Output 08/12/16 08/13/16 19:00 07:00 Intake Total 500 ml 500 ml Balance 500 ml 500 ml Intake Oral 500 ml 500 ml # Voids 3 1 # Bowel Movements 1 Objective General Appearance: WD/WN HEENT: normocephalic, anicteric Cardiovascular: normal peripheral pulses, regular rhythm Abdomen: normal bowel sounds, soft, non tender Genitourinary: normal external genitalia Skin: no rash Microbiology Date/Time Source Procedure Growth Status 08/12/16 10:00 Urine,Clean Catch Urine Culture - Preliminary NO GROWTH Resulted Current Medications Medications (Trade) Dose Ordered Sig/Robert Route PRN Reason Start Time Stop Time Status Last Admin Dose Admin Acetaminophen (Tylenol) 650 mg Q4H PRN ORAL FEVER 08/06/16 07:45 09/05/16 07:44 Amitriptyline HCl (Elavil) 25 mg BEDTIME ORAL 08/06/16 21:00 09/05/16 20:59 08/12/16 20:33 Amlodipine Besylate (Norvasc) 10 mg DAILY ORAL 08/06/16 10:00 09/05/16 09:59 08/13/16 08:18 Calcium Carbonate (Tums) 500 mg Q4H PRN ORAL dyspepsia 08/06/16 07:45 09/05/16 07:44 08/10/16 01:08 Carbamazepine (TEGretol) 300 mg Q12HR ORAL 08/06/16 10:00 09/05/16 09:59 08/13/16 08:18 Diltiazem HCl (Cardizem) 10 mg Q1H PRN IV heart rate more than 120, 08/06/16 07:45 09/05/16 07:44 Divalproex Sodium (Depakote ER) 1,000 mg EVERY 12 HOURS ORAL 08/06/16 10:00 09/05/16 09:59 08/13/16 08:18 Doxycycline Monohydrate (Vibramycin) 100 mg EVERY 12 HOURS ORAL 08/12/16 09:45 08/19/16 09:44 08/13/16 08:15 Enalaprilat (Vasotec) 2.5 mg Q6H PRN IV sbp more than 160 08/06/16 07:45 09/05/16 07:44 Fentanyl (Duragesic) 1 patch Q72H TDERMAL 08/08/16 21:30 08/15/16 21:29 08/11/16 21:08 Fluoxetine HCl (PROzac) 20 mg DAILY ORAL 08/06/16 10:00 09/05/16 09:59 08/13/16 08:18 Heparin Sodium (Porcine) (Heparin 5000 units/ml) 5,000 units EVERY 12 HOURS SUBQ 08/06/16 10:00 09/05/16 09:59 08/12/16 20:42 Hydromorphone HCl (Dilaudid) 2 mg Q2H PRN IVP For Pain 08/06/16 23:15 08/13/16 23:14 08/13/16 12:43 Lisinopril (Prinivil) 20 mg DAILY ORAL 08/06/16 10:00 09/05/16 09:59 08/13/16 08:17 Methocarbamol (Robaxin) 750 mg QIDPRN PRN ORAL Muscle Spasm 08/06/16 08:30 09/05/16 08:29 Naloxone HCl (Narcan) 0.1 mg STAT PRN IV Sedation scale 3 or 4 08/06/16 11:00 09/05/16 10:59 Neomycin/ Polymyxin/ Bacitracin (Neosporin) 1 applic BID PRN TOPIC Itching/Pruritis 08/10/16 23:00 09/09/16 22:59 08/12/16 13:00 Nitroglycerin (Ntg) 0.4 mg Q5M PRN SL Prn Chest Pain 08/06/16 07:45 09/05/16 07:44 Ondansetron HCl (Zofran) 4 mg Q6H PRN IVP Nausea & Vomiting 08/06/16 07:45 09/05/16 07:44 Oxycodone/ Acetaminophen (Percocet 10/325) 1 tab Q4H PRN ORAL moderate breakthrough pain 08/06/16 18:15 08/13/16 18:14 Pantoprazole (Protonix) 40 mg DAILY ORAL 08/06/16 10:00 09/05/16 09:59 08/13/16 08:18 Phenytoin (Dilantin) 250 mg DAILY ORAL 08/06/16 10:00 09/05/16 09:59 08/13/16 08:15 Polyethylene Glycol (Miralax) 17 gm DAILYPRN PRN ORAL Constipation 08/06/16 07:45 09/05/16 07:44 Pregabalin (Lyrica) 100 mg THREE TIMES A DAY ORAL 08/06/16 18:30 09/05/16 18:29 08/13/16 12:42 Topiramate (Topamax) 50 mg TWICE A DAY ORAL 08/06/16 10:00 09/05/16 09:59 08/13/16 08:19 Trazodone HCl (Desyrel) 100 mg BEDTIME ORAL 08/06/16 21:00 09/05/16 20:59 08/12/16 20:33 LAUREN OCHOA Aug 13, 2016 15:21
--- NOTE | 2016-08-13 15:27 | Cardiac Electrophysiology PN ---
Assessment/Plan Assessment/Plan 1. Atypical chest pain. Ruled out for myocardial infarction. EKG is nonischemic and his echocardiogram showed normal left ventricular systolic function. Nuclear stress test showed no ischemia. 2. Hypertension. Continue Norvasc 10 mg daily and lisinopril 20 mg daily. 3. Chronic obstructive pulmonary disease. 4. Psychosis on Desyrel and Elavil. 5. Seizure disorder, on Tegretol. 6. Morbid obesity. 7. Hematuria DW RN OK to DC from cardiac stand point Subjective Subjective Nuclear stress test was non ischemic. Complains of hematuria and left hand pain.Awaiting Medicare appeal regarding his discharge. Objective Last 24 Hour Vital Signs Date Time Temp Pulse Resp B/P Pulse Ox O2 Delivery O2 Flow Rate FiO2 08/13/16 12:00 95 19 120/99 95 Room Air 08/13/16 08:18 87 113/68 08/13/16 08:17 113/68 08/13/16 08:00 81 18 124/69 91 Room Air 08/13/16 06:59 Room Air 08/13/16 06:58 95 Room Air 08/13/16 06:57 89 18 Room Air 08/13/16 00:00 98.1 86 22 111/72 95 Room Air 08/12/16 21:31 94 Room Air 21 08/12/16 21:31 Room Air 08/12/16 21:30 97 20 Room Air 08/12/16 20:00 98.4 96 20 119/73 96 Room Air 08/12/16 16:00 98.1 95 18 132/78 98 Room Air Intake and Output 08/12/16 08/13/16 19:00 07:00 Intake Total 500 ml 500 ml Balance 500 ml 500 ml Intake Oral 500 ml 500 ml # Voids 3 1 # Bowel Movements 1 Microbiology Date/Time Source Procedure Growth Status 08/12/16 10:00 Urine,Clean Catch Urine Culture - Preliminary NO GROWTH Resulted Objective HEAD AND NECK: Shows no JVD. LUNGS: Clear. CARDIOVASCULAR: Regular S1 and S2 with no gallop or murmur. ABDOMEN: Soft and nontender. Obese. EXTREMITIES: No pitting edema. GAEL MAXWELL Aug 13, 2016 15:27
[2016-08-13 16:00] VITALS: BP 110/69
[2016-08-13 20:00] VITALS: BP 142/90
[2016-08-13] MEDS: TraZODone 100mg tab ORAL SCH (21:01)
[2016-08-14 00:07] VITALS: BP 125/78
[2016-08-14 04:05] VITALS: BP 136/79
[2016-08-14 08:00] VITALS: BP 143/87
[2016-08-14] MEDS: Lyrica 50mg cap ORAL SCH ×3 (08:26→17:06)
[2016-08-14] MEDS: Lisinopril 20mg tab ORAL SCH (08:26)
[2016-08-14] MEDS: carBAMazepine 200mg tab ORAL SCH ×2 (08:27→21:31)
[2016-08-14] MEDS: Phenytoin Susp 100mg/4ml ORAL SCH (08:27)
[2016-08-14] MEDS: Topiramate 100mg tab ORAL SCH (08:27)
[2016-08-14] MEDS: Heparin 5000 units/ml inj SUBQ SCH ×2 (08:30→21:37)
[2016-08-14] MEDS: Depakote ER 500mg tab ORAL SCH ×2 (09:22→21:31)
--- NOTE | 2016-08-14 10:14 | Infectious Diseases Prog Note ---
Assessment/Plan Problems: (1) UTI (urinary tract infection) Assessment & Plan: on doxycycline , culture is growing mixed zana, await identification (2) Boil, hand Assessment & Plan: S/P autodrainage , on doxycycline for 7 days (3) Chest pain Assessment & Plan: resolved , rule out ACS, had stress test, cardiology is following (4) CHF (congestive heart failure) Assessment & Plan: with exacerbation, improved, continue diuresis, monitor UOP , and daily weight (5) Hematuria Assessment & Plan: consult urology , recommend renal US Subjective Constitutional: Reports: no symptoms HEENT: Reports: no symptoms Respiratory: Reports: no symptoms Cardiovascular: Reports: no symptoms Gastrointestinal/Abdominal: Reports: no symptoms Genitourinary: Reports: hematuria Neurologic: Reports: no symptoms Psychiatric: Reports: anxiety Skin: Reports: no symptoms Allergies: Coded Allergies: KETOROLAC (Verified Allergy, Severe, 08/06/16) ASPIRIN (Verified Allergy, Intermediate, 08/06/16) CEPHALEXIN (Verified Allergy, Mild, 12/13/14) PEANUT (Verified Allergy, Unknown, 11/19/15) Uncoded Allergies: fish (Allergy, Unknown, 08/12/16) Objective Vital Signs Last 24 Hour Vital Signs Date Time Temp Pulse Resp B/P Pulse Ox O2 Delivery O2 Flow Rate FiO2 08/14/16 08:27 81 143/87 08/14/16 08:26 143/87 08/14/16 08:00 97.7 81 18 143/87 97 Room Air 08/14/16 07:46 96 Room Air 08/14/16 07:45 88 20 Room Air 08/14/16 07:44 Room Air 08/14/16 04:05 97.0 82 19 136/79 95 Room Air 08/14/16 00:07 97.2 79 18 125/78 97 Room Air 08/13/16 23:25 97.2 08/13/16 20:00 97.5 95 18 142/90 97 Room Air 08/13/16 19:29 Room Air 08/13/16 19:29 95 18 Room Air 08/13/16 19:29 96 Room Air 08/13/16 16:00 98 18 110/69 96 Room Air 08/13/16 12:00 95 19 120/99 95 Room Air Height (Feet): 5 Height (Inches): 10.00 Weight (Pounds): 328 General Appearance: WD/WN, no acute distress HEENT: normocephalic, atraumatic, anicteric, mucous membranes moist Respiratory/Chest: chest wall non-tender, lungs clear, normal breath sounds, no respiratory distress, no accessory muscle use Cardiovascular: normal peripheral pulses, normal rate, regular rhythm, no gallop/murmur Abdomen: normal bowel sounds, soft, non tender, no organomegaly, non distended , no mass Extremities: no cyanosis, no clubbing Skin: no rash, no lesions Microbiology Date/Time Source Procedure Growth Status 08/12/16 10:00 Urine,Clean Catch Urine Culture - Preliminary Mixed Gram Positive Organism Resulted Current Medications Medications (Trade) Dose Ordered Sig/Robert Route PRN Reason Start Time Stop Time Status Last Admin Dose Admin Acetaminophen (Tylenol) 650 mg Q4H PRN ORAL FEVER 08/06/16 07:45 09/05/16 07:44 Amitriptyline HCl (Elavil) 25 mg BEDTIME ORAL 08/06/16 21:00 09/05/16 20:59 08/13/16 21:02 Amlodipine Besylate (Norvasc) 10 mg DAILY ORAL 08/06/16 10:00 09/05/16 09:59 08/14/16 08:27 Calcium Carbonate (Tums) 500 mg Q4H PRN ORAL dyspepsia 08/06/16 07:45 09/05/16 07:44 08/10/16 01:08 Carbamazepine (TEGretol) 300 mg Q12HR ORAL 08/06/16 10:00 09/05/16 09:59 08/14/16 08:27 Diltiazem HCl (Cardizem) 10 mg Q1H PRN IV heart rate more than 120, 08/06/16 07:45 09/05/16 07:44 Divalproex Sodium (Depakote ER) 1,000 mg EVERY 12 HOURS ORAL 08/06/16 10:00 09/05/16 09:59 08/14/16 09:22 Doxycycline Monohydrate (Vibramycin) 100 mg EVERY 12 HOURS ORAL 08/12/16 09:45 08/19/16 09:44 08/14/16 08:26 Enalaprilat (Vasotec) 2.5 mg Q6H PRN IV sbp more than 160 08/06/16 07:45 09/05/16 07:44 Fentanyl (Duragesic) 1 patch Q72H TDERMAL 08/08/16 21:30 08/15/16 21:29 08/11/16 21:08 Fluoxetine HCl (PROzac) 20 mg DAILY ORAL 08/06/16 10:00 09/05/16 09:59 08/14/16 08:27 Heparin Sodium (Porcine) (Heparin 5000 units/ml) 5,000 units EVERY 12 HOURS SUBQ 08/06/16 10:00 09/05/16 09:59 08/14/16 08:30 Hydromorphone HCl (Dilaudid) 2 mg Q2H PRN IVP For Pain 08/14/16 05:30 08/21/16 05:29 08/14/16 08:28 Lisinopril (Prinivil) 20 mg DAILY ORAL 08/06/16 10:00 09/05/16 09:59 08/14/16 08:26 Methocarbamol (Robaxin) 750 mg QIDPRN PRN ORAL Muscle Spasm 08/06/16 08:30 09/05/16 08:29 Naloxone HCl (Narcan) 0.1 mg STAT PRN IV Sedation scale 3 or 4 08/06/16 11:00 09/05/16 10:59 Neomycin/ Polymyxin/ Bacitracin (Neosporin) 1 applic BID PRN TOPIC Itching/Pruritis 08/10/16 23:00 09/09/16 22:59 08/12/16 13:00 Nitroglycerin (Ntg) 0.4 mg Q5M PRN SL Prn Chest Pain 08/06/16 07:45 09/05/16 07:44 Ondansetron HCl (Zofran) 4 mg Q6H PRN IVP Nausea & Vomiting 08/06/16 07:45 09/05/16 07:44 Pantoprazole (Protonix) 40 mg DAILY ORAL 08/06/16 10:00 09/05/16 09:59 08/14/16 08:26 Phenytoin (Dilantin) 250 mg DAILY ORAL 08/06/16 10:00 09/05/16 09:59 08/14/16 08:27 Polyethylene Glycol (Miralax) 17 gm DAILYPRN PRN ORAL Constipation 08/06/16 07:45 09/05/16 07:44 Pregabalin (Lyrica) 100 mg THREE TIMES A DAY ORAL 08/06/16 18:30 09/05/16 18:29 08/14/16 08:26 Topiramate (Topamax) 50 mg TWICE A DAY ORAL 08/06/16 10:00 09/05/16 09:59 08/14/16 08:27 Trazodone HCl (Desyrel) 100 mg BEDTIME ORAL 08/06/16 21:00 09/05/16 20:59 08/13/16 21:01 Uri Tesfaye M.D. Aug 14, 2016 10:14
[2016-08-14 11:38] VITALS: BP 135/85
--- NOTE | 2016-08-14 12:06 | General Progress Note ---
Assessment/Plan Problem List: (1) GERD (gastroesophageal reflux disease) ICD Codes: K21.9 - Gastro-esophageal reflux disease without esophagitis SNOMED: 083980310 (2) CHF (congestive heart failure) ICD Codes: I50.9 - Heart failure, unspecified SNOMED: 03694248 (3) ACS (acute coronary syndrome) ICD Codes: I24.9 - Acute ischemic heart disease, unspecified SNOMED: 127168719 (4) Chest pain ICD Codes: R07.9 - Chest pain, unspecified SNOMED: 14033750 Assessment/Plan he is appealing the dc cleared by cardiology for dc renewed his pain med afebrile Subjective Allergies: Coded Allergies: KETOROLAC (Verified Allergy, Severe, 08/06/16) ASPIRIN (Verified Allergy, Intermediate, 08/06/16) CEPHALEXIN (Verified Allergy, Mild, 12/13/14) PEANUT (Verified Allergy, Unknown, 11/19/15) Uncoded Allergies: fish (Allergy, Unknown, 08/12/16) Subjective chronic pain Objective Last 24 Hour Vital Signs Date Time Temp Pulse Resp B/P Pulse Ox O2 Delivery O2 Flow Rate FiO2 08/14/16 11:38 98.2 97 19 135/85 96 Room Air 08/14/16 08:27 81 143/87 08/14/16 08:26 143/87 08/14/16 08:00 97.7 81 18 143/87 97 Room Air 08/14/16 07:46 96 Room Air 08/14/16 07:45 88 20 Room Air 08/14/16 07:44 Room Air 08/14/16 04:05 97.0 82 19 136/79 95 Room Air 08/14/16 00:07 97.2 79 18 125/78 97 Room Air 08/13/16 23:25 97.2 08/13/16 20:00 97.5 95 18 142/90 97 Room Air 08/13/16 19:29 Room Air 08/13/16 19:29 95 18 Room Air 08/13/16 19:29 96 Room Air 08/13/16 16:00 98 18 110/69 96 Room Air Intake and Output 08/13/16 08/14/16 19:00 07:00 # Voids 1 Height (Feet): 5 Height (Inches): 10.00 Weight (Pounds): 328 Teddy Hernandez MD Aug 14, 2016 12:06
--- NOTE | 2016-08-14 12:23 | Pulmonology Progress Note ---
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 PLAN OF CARE serial troponin negative ECG no ischemic changes, patient was ruled out for acute TN cardio follows ECHO with preserved EF nuclear stress test negative per cardio chest pain atypical, patient has chronic pain syndrome BP management with CCB and CHANCE O2 HHN prn pulse oximetry stable on RA sputum cx negative, urine with mixed GPO, blood cx negative, on Doxy for 7 d due to hand boil, leucocytosis resolved urine tox screen + BZD, opiates, marijuana, vp & general counsel on abstinence from street drugs DVT GI prophylaxis PT/OT seizure precautions, continue Topamax, Depakote and Tegretol , no seizure activity while in the hospital continue Desyrel, Elavil and Prozac pain management, patient declined pain specialist services cardio cleared for dc patient refused to leave, appealed, awaiting for medicare decision transfer to [facility] floor case discussed and evaluated by supervising physician Subjective Allergies: Coded Allergies: KETOROLAC (Verified Allergy, Severe, 08/06/16) ASPIRIN (Verified Allergy, Intermediate, 08/06/16) CEPHALEXIN (Verified Allergy, Mild, 12/13/14) PEANUT (Verified Allergy, Unknown, 11/19/15) Uncoded Allergies: fish (Allergy, Unknown, 08/12/16) Subjective denies chest pain, SOB, reports generalized weakness Objective Last 24 Hour Vital Signs Date Time Temp Pulse Resp B/P Pulse Ox O2 Delivery O2 Flow Rate FiO2 08/14/16 11:38 98.2 97 19 135/85 96 Room Air 08/14/16 08:27 81 143/87 08/14/16 08:26 143/87 08/14/16 08:00 97.7 81 18 143/87 97 Room Air 08/14/16 07:46 96 Room Air 08/14/16 07:45 88 20 Room Air 08/14/16 07:44 Room Air 08/14/16 04:05 97.0 82 19 136/79 95 Room Air 08/14/16 00:07 97.2 79 18 125/78 97 Room Air 08/13/16 23:25 97.2 08/13/16 20:00 97.5 95 18 142/90 97 Room Air 08/13/16 19:29 Room Air 08/13/16 19:29 95 18 Room Air 08/13/16 19:29 96 Room Air 08/13/16 16:00 98 18 110/69 96 Room Air Intake and Output 08/13/16 08/14/16 19:00 07:00 # Voids 1 General Appearance: no acute distress, other - morbidly obese male HEENT: normocephalic, atraumatic, anicteric, mucous membranes moist Respiratory/Chest: normal breath sounds, no respiratory distress Cardiovascular: normal rate, regular rhythm, no JVD Abdomen: normal bowel sounds, soft, non tender - obese Extremities: no edema 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: no motor/sensory deficits, alert, responsive Musculoskeletal: normal muscle bulk Microbiology Date/Time Source Procedure Growth Status 08/12/16 10:00 Urine,Clean Catch Urine Culture - Preliminary Mixed Gram Positive Organism Resulted Current Medications Medications (Trade) Dose Ordered Sig/Robert Route PRN Reason Start Time Stop Time Status Last Admin Dose Admin Acetaminophen (Tylenol) 650 mg Q4H PRN ORAL FEVER 08/06/16 07:45 09/05/16 07:44 Amitriptyline HCl (Elavil) 25 mg BEDTIME ORAL 08/06/16 21:00 09/05/16 20:59 08/13/16 21:02 Amlodipine Besylate (Norvasc) 10 mg DAILY ORAL 08/06/16 10:00 09/05/16 09:59 08/14/16 08:27 Calcium Carbonate (Tums) 500 mg Q4H PRN ORAL dyspepsia 08/06/16 07:45 09/05/16 07:44 08/10/16 01:08 Carbamazepine (TEGretol) 300 mg Q12HR ORAL 08/06/16 10:00 09/05/16 09:59 08/14/16 08:27 Diltiazem HCl (Cardizem) 10 mg Q1H PRN IV heart rate more than 120, 08/06/16 07:45 09/05/16 07:44 Divalproex Sodium (Depakote ER) 1,000 mg EVERY 12 HOURS ORAL 08/06/16 10:00 09/05/16 09:59 08/14/16 09:22 Doxycycline Monohydrate (Vibramycin) 100 mg EVERY 12 HOURS ORAL 08/12/16 09:45 08/19/16 09:44 08/14/16 08:26 Enalaprilat (Vasotec) 2.5 mg Q6H PRN IV sbp more than 160 08/06/16 07:45 09/05/16 07:44 Fentanyl (Duragesic) 1 patch Q72H TDERMAL 08/08/16 21:30 08/15/16 21:29 08/11/16 21:08 Fluoxetine HCl (PROzac) 20 mg DAILY ORAL 08/06/16 10:00 09/05/16 09:59 08/14/16 08:27 Heparin Sodium (Porcine) (Heparin 5000 units/ml) 5,000 units EVERY 12 HOURS SUBQ 08/06/16 10:00 09/05/16 09:59 08/14/16 08:30 Hydromorphone HCl (Dilaudid) 2 mg Q2H PRN IVP For Pain 08/14/16 05:30 08/21/16 05:29 08/14/16 10:36 Lisinopril (Prinivil) 20 mg DAILY ORAL 08/06/16 10:00 09/05/16 09:59 08/14/16 08:26 Methocarbamol (Robaxin) 750 mg QIDPRN PRN ORAL Muscle Spasm 08/06/16 08:30 09/05/16 08:29 Naloxone HCl (Narcan) 0.1 mg STAT PRN IV Sedation scale 3 or 4 08/06/16 11:00 09/05/16 10:59 Neomycin/ Polymyxin/ Bacitracin (Neosporin) 1 applic BID PRN TOPIC Itching/Pruritis 08/10/16 23:00 09/09/16 22:59 08/12/16 13:00 Nitroglycerin (Ntg) 0.4 mg Q5M PRN SL Prn Chest Pain 08/06/16 07:45 09/05/16 07:44 Ondansetron HCl (Zofran) 4 mg Q6H PRN IVP Nausea & Vomiting 08/06/16 07:45 09/05/16 07:44 Pantoprazole (Protonix) 40 mg DAILY ORAL 08/06/16 10:00 09/05/16 09:59 08/14/16 08:26 Phenytoin (Dilantin) 250 mg DAILY ORAL 08/06/16 10:00 09/05/16 09:59 08/14/16 08:27 Polyethylene Glycol (Miralax) 17 gm DAILYPRN PRN ORAL Constipation 08/06/16 07:45 09/05/16 07:44 Pregabalin (Lyrica) 100 mg THREE TIMES A DAY ORAL 08/06/16 18:30 09/05/16 18:29 08/14/16 08:26 Topiramate (Topamax) 50 mg TWICE A DAY ORAL 08/06/16 10:00 09/05/16 09:59 08/14/16 08:27 Trazodone HCl (Desyrel) 100 mg BEDTIME ORAL 08/06/16 21:00 09/05/16 20:59 08/13/16 21:01 Wai ([facility])Almita NP Aug 14, 2016 12:23
--- NOTE | 2016-08-14 13:30 | Cardiac Electrophysiology PN ---
Assessment/Plan Assessment/Plan 1. Chest pain. Ruled out for myocardial infarction. EKG is nonischemic and echocardiogram showed normal left ventricular systolic function. Nuclear stress test showed no ischemia. 2. Hypertension. Continue Norvasc 10 mg daily and lisinopril 20 mg daily. 3. Chronic obstructive pulmonary disease. 4. Psychosis on Desyrel and Elavil. 5. Seizure disorder, on Tegretol. 6. Morbid obesity. 7. Hematuria DW RN Subjective Subjective Complains of hematuria and left hand pain.Still refusing discharge. Objective Last 24 Hour Vital Signs Date Time Temp Pulse Resp B/P Pulse Ox O2 Delivery O2 Flow Rate FiO2 08/14/16 11:38 98.2 97 19 135/85 96 Room Air 08/14/16 08:27 81 143/87 08/14/16 08:26 143/87 08/14/16 08:00 97.7 81 18 143/87 97 Room Air 08/14/16 07:46 96 Room Air 08/14/16 07:45 88 20 Room Air 08/14/16 07:44 Room Air 08/14/16 04:05 97.0 82 19 136/79 95 Room Air 08/14/16 00:07 97.2 79 18 125/78 97 Room Air 08/13/16 23:25 97.2 08/13/16 20:00 97.5 95 18 142/90 97 Room Air 08/13/16 19:29 Room Air 08/13/16 19:29 95 18 Room Air 08/13/16 19:29 96 Room Air 08/13/16 16:00 98 18 110/69 96 Room Air Intake and Output 08/13/16 08/14/16 19:00 07:00 # Voids 1 Microbiology Date/Time Source Procedure Growth Status 08/12/16 10:00 Urine,Clean Catch Urine Culture - Preliminary Mixed Gram Positive Organism Resulted Objective HEAD AND NECK: Shows no JVD. LUNGS: Clear. CARDIOVASCULAR: Regular S1 and S2 with no gallop or murmur. ABDOMEN: Soft and nontender. Obese. EXTREMITIES: No pitting edema. GAEL MAXWELL Aug 14, 2016 13:30
[2016-08-14 16:00] VITALS: BP 109/58
[2016-08-14] MEDS: Topiramate 25mg tab ORAL SCH (17:06)
[2016-08-14 20:00] VITALS: BP 133/87
[2016-08-14] MEDS: TraZODone 100mg tab ORAL SCH (21:31)
[2016-08-15] VITALS: BP 123/72
--- NOTE | 2016-08-15 02:15 | Progress Note ---
DATE: 08/13/2016 NOTE: "POOR AUDIO QUALITY" TREATING ATTENDING: Jeremiah Singh D.O. SUBJECTIVE: The patient is a 40-year-old male patient, who has a history of bipolar disorder. The patient states that he has been treated in the past. He has been treated for the his has been in the hospital . He has been . The patient is alert and oriented x place. . His mood is anxious. thought content. . The patient denies suicidal or homicidal thoughts of ideation. PLAN: This clinician has provided the patient with reality orientation, supportive psychotherapy, and coping skills. Continue with medication management and behavioral management. This clinician has reviewed the patient's chart and discussed the treatment with nursing staff. Mark Crews PsyD. DR: Aislinn JOB#: [id number] CC:
[2016-08-15 04:00] VITALS: BP 127/72
[2016-08-15 08:00] VITALS: BP 120/68
[2016-08-15] MEDS: Lisinopril 20mg tab ORAL SCH (09:11)
[2016-08-15] MEDS: carBAMazepine 200mg tab ORAL SCH ×2 (09:11→21:36)
[2016-08-15] MEDS: Lyrica 50mg cap ORAL SCH ×3 (09:12→18:26)
[2016-08-15] MEDS: Depakote ER 500mg tab ORAL SCH ×2 (09:13→21:36)
[2016-08-15] MEDS: Phenytoin Susp 100mg/4ml ORAL SCH (09:14)
[2016-08-15] MEDS: Topiramate 25mg tab ORAL SCH ×2 (09:15→18:26)
[2016-08-15] MEDS: Heparin 5000 units/ml inj SUBQ SCH ×2 (09:16→21:37)
[2016-08-15 12:00] VITALS: BP 124/69
--- NOTE | 2016-08-15 12:38 | Pulmonology Progress Note ---
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 PLAN OF CARE serial troponin negative ECG no ischemic changes, patient was ruled out for acute [place] cardio follows ECHO with preserved EF nuclear stress test negative per cardio chest pain atypical, patient has chronic pain syndrome BP management with CCB and [facility] O2 HHN prn pulse oximetry stable on RA sputum cx negative, urine with mixed GPO, blood cx negative, on Doxy for 7 d due to hand boil, leucocytosis resolved urine tox screen + BZD, opiates, marijuana, addiction treatment counselor on abstinence from street drugs DVT GI prophylaxis PT/OT seizure precautions, continue Topamax, Depakote and Tegretol , no seizure activity while in the hospital continue Desyrel, Elavil and Prozac pain management, patient declined pain specialist services cardio cleared for dc patient refused to leave, appealed, awaiting for medicare decision patient refused to be transfer to [place] floor case discussed and evaluated by supervising physician Subjective Allergies: Coded Allergies: KETOROLAC (Verified Allergy, Severe, 08/06/16) ASPIRIN (Verified Allergy, Intermediate, 08/06/16) CEPHALEXIN (Verified Allergy, Mild, 12/13/14) PEANUT (Verified Allergy, Unknown, 11/19/15) Uncoded Allergies: fish (Allergy, Unknown, 08/12/16) Subjective denies chest pain, SOB, reports generalized weakness Objective Last 24 Hour Vital Signs Date Time Temp Pulse Resp B/P Pulse Ox O2 Delivery O2 Flow Rate FiO2 08/15/16 10:16 97.9 08/15/16 09:13 93 120/68 08/15/16 09:11 120/68 08/15/16 08:00 93 18 120/68 99 Room Air 08/15/16 04:00 97.7 88 18 127/72 95 Room Air 88 08/15/16 00:00 97.4 94 18 123/72 95 Room Air 08/14/16 20:00 97.7 87 18 133/87 99 Room Air 08/14/16 19:57 97.9 08/14/16 19:15 96 Room Air 08/14/16 19:15 92 20 Room Air 08/14/16 19:10 Room Air 08/14/16 16:00 97.9 80 18 109/58 98 Room Air Intake and Output 08/14/16 08/15/16 19:00 07:00 Intake Total 560 ml Balance 560 ml Intake Oral 560 ml # Voids 2 1 Objective General Appearance: no acute distress, other - morbidly obese male HEENT: normocephalic, atraumatic, anicteric, mucous membranes moist Respiratory/Chest: normal breath sounds, no respiratory distress Cardiovascular: normal rate, regular rhythm, no JVD Abdomen: normal bowel sounds, soft, non tender - obese Extremities: no edema 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: no motor/sensory deficits, alert, responsive Musculoskeletal: normal muscle bulk Current Medications Medications (Trade) Dose Ordered Sig/Robert Route PRN Reason Start Time Stop Time Status Last Admin Dose Admin Acetaminophen (Tylenol) 650 mg Q4H PRN ORAL FEVER 08/06/16 07:45 09/05/16 07:44 Amitriptyline HCl (Elavil) 25 mg BEDTIME ORAL 08/06/16 21:00 09/05/16 20:59 08/14/16 21:32 Amlodipine Besylate (Norvasc) 10 mg DAILY ORAL 08/06/16 10:00 09/05/16 09:59 08/15/16 09:13 Calcium Carbonate (Tums) 500 mg Q4H PRN ORAL dyspepsia 08/06/16 07:45 09/05/16 07:44 08/10/16 01:08 Carbamazepine (TEGretol) 300 mg Q12HR ORAL 08/06/16 10:00 09/05/16 09:59 08/15/16 09:11 Diltiazem HCl (Cardizem) 10 mg Q1H PRN IV heart rate more than 120, 08/06/16 07:45 09/05/16 07:44 Divalproex Sodium (Depakote ER) 1,000 mg EVERY 12 HOURS ORAL 08/06/16 10:00 09/05/16 09:59 08/15/16 09:13 Doxycycline Monohydrate (Vibramycin) 100 mg EVERY 12 HOURS ORAL 08/12/16 09:45 08/19/16 09:44 08/15/16 09:15 Enalaprilat (Vasotec) 2.5 mg Q6H PRN IV sbp more than 160 08/06/16 07:45 09/05/16 07:44 Fentanyl (Duragesic) 1 patch Q72H TDERMAL 08/08/16 21:30 08/15/16 21:29 08/14/16 22:02 Fluoxetine HCl (PROzac) 20 mg DAILY ORAL 08/06/16 10:00 09/05/16 09:59 08/15/16 09:14 Heparin Sodium (Porcine) (Heparin 5000 units/ml) 5,000 units EVERY 12 HOURS SUBQ 08/06/16 10:00 09/05/16 09:59 08/15/16 09:16 Hydromorphone HCl (Dilaudid) 2 mg Q2H PRN IVP For Pain 08/14/16 05:30 08/21/16 05:29 08/15/16 11:49 Lisinopril (Prinivil) 20 mg DAILY ORAL 08/06/16 10:00 09/05/16 09:59 08/15/16 09:11 Methocarbamol (Robaxin) 750 mg QIDPRN PRN ORAL Muscle Spasm 08/06/16 08:30 09/05/16 08:29 Naloxone HCl (Narcan) 0.1 mg STAT PRN IV Sedation scale 3 or 4 08/06/16 11:00 09/05/16 10:59 Neomycin/ Polymyxin/ Bacitracin (Neosporin) 1 applic BID PRN TOPIC Itching/Pruritis 08/10/16 23:00 09/09/16 22:59 08/12/16 13:00 Nitroglycerin (Ntg) 0.4 mg Q5M PRN SL Prn Chest Pain 08/06/16 07:45 09/05/16 07:44 Ondansetron HCl (Zofran) 4 mg Q6H PRN IVP Nausea & Vomiting 08/06/16 07:45 09/05/16 07:44 Pantoprazole (Protonix) 40 mg DAILY ORAL 08/06/16 10:00 09/05/16 09:59 08/15/16 09:13 Phenytoin (Dilantin) 250 mg DAILY ORAL 08/06/16 10:00 09/05/16 09:59 08/15/16 09:14 Polyethylene Glycol (Miralax) 17 gm DAILYPRN PRN ORAL Constipation 08/06/16 07:45 09/05/16 07:44 Pregabalin (Lyrica) 100 mg THREE TIMES A DAY ORAL 08/06/16 18:30 09/05/16 18:29 08/15/16 09:12 Topiramate (Topamax) 50 mg TWICE A DAY ORAL 08/14/16 18:00 09/13/16 17:59 08/15/16 09:15 Trazodone HCl (Desyrel) 100 mg BEDTIME ORAL 08/06/16 21:00 09/05/16 20:59 08/14/16 21:[address] [facility]Almita NP Aug 15, 2016 12:38
--- NOTE | 2016-08-15 13:11 | General Progress Note ---
Assessment/Plan Problem List: (1) GERD (gastroesophageal reflux disease) ICD Codes: K21.9 - Gastro-esophageal reflux disease without esophagitis SNOMED: 181572242 (2) CHF (congestive heart failure) ICD Codes: I50.9 - Heart failure, unspecified SNOMED: 92912518 (3) ACS (acute coronary syndrome) ICD Codes: I24.9 - Acute ischemic heart disease, unspecified SNOMED: 901829481 (4) Chest pain ICD Codes: R07.9 - Chest pain, unspecified SNOMED: 16149937 Status: progressing Assessment/Plan chf gerd afebrile chronic pain syndrome vitals stable appealed the dc Subjective ROS Limited/Unobtainable: Yes Allergies: Coded Allergies: KETOROLAC (Verified Allergy, Severe, 08/06/16) ASPIRIN (Verified Allergy, Intermediate, 08/06/16) CEPHALEXIN (Verified Allergy, Mild, 12/13/14) PEANUT (Verified Allergy, Unknown, 11/19/15) Uncoded Allergies: fish (Allergy, Unknown, 08/12/16) Subjective chronic pain Objective Last 24 Hour Vital Signs Date Time Temp Pulse Resp B/P Pulse Ox O2 Delivery O2 Flow Rate FiO2 08/15/16 12:00 98.1 91 18 124/69 96 Room Air 08/15/16 10:16 97.9 08/15/16 09:13 93 120/68 08/15/16 09:11 120/68 08/15/16 08:00 93 18 120/68 99 Room Air 08/15/16 04:00 97.7 88 18 127/72 95 Room Air 88 08/15/16 00:00 97.4 94 18 123/72 95 Room Air 08/14/16 20:00 97.7 87 18 133/87 99 Room Air 08/14/16 19:57 97.9 08/14/16 19:15 96 Room Air 08/14/16 19:15 92 20 Room Air 08/14/16 19:10 Room Air 08/14/16 16:00 97.9 80 18 109/58 98 Room Air Intake and Output 08/14/16 08/15/16 19:00 07:00 Intake Total 560 ml Balance 560 ml Intake Oral 560 ml # Voids 2 1 Height (Feet): 5 Height (Inches): 10.00 Weight (Pounds): 325 Neck: supple Cardiovascular: normal rate Respiratory/Chest: lungs clear Abdomen: soft Teddy Hernandez MD Aug 15, 2016 13:11
[2016-08-15 16:00] VITALS: BP 149/74
--- NOTE | 2016-08-15 17:36 | Cardiac Electrophysiology PN ---
Assessment/Plan Assessment/Plan 1. Chest pain. Ruled out for myocardial infarction. EKG is nonischemic. Echocardiogram showed normal left ventricular systolic function. Nuclear stress test showed no ischemia. 2. Hypertension. Continue Norvasc 10 mg daily and lisinopril 20 mg daily. 3. Chronic obstructive pulmonary disease. 4. Psychosis on Desyrel and Elavil. 5. Seizure disorder, on Tegretol. 6. Morbid obesity. 7. Hematuria DW OK to DC from cardiac perspective DW RN Subjective Subjective Complains of hematuria and right groin pain.Still refusing discharge or transfer to [facility]. Objective Last 24 Hour Vital Signs Date Time Temp Pulse Resp B/P Pulse Ox O2 Delivery O2 Flow Rate FiO2 08/15/16 16:00 98.2 95 18 149/74 96 Room Air 08/15/16 12:19 98.1 08/15/16 12:00 98.1 91 18 124/69 96 Room Air 08/15/16 09:13 93 120/68 08/15/16 09:11 120/68 08/15/16 08:00 93 18 120/68 99 Room Air 08/15/16 04:00 97.7 88 18 127/72 95 Room Air 88 08/15/16 00:00 97.4 94 18 123/72 95 Room Air 08/14/16 20:00 97.7 87 18 133/87 99 Room Air 08/14/16 19:57 97.9 08/14/16 19:15 96 Room Air 08/14/16 19:15 92 20 Room Air 08/14/16 19:10 Room Air Intake and Output 08/14/16 08/15/16 19:00 07:00 Intake Total 560 ml Balance 560 ml Intake Oral 560 ml # Voids 2 1 Objective HEAD AND NECK: Shows no JVD. LUNGS: Clear. CARDIOVASCULAR: Regular S1 and S2 with no gallop or murmur. ABDOMEN: Soft and nontender. Obese. EXTREMITIES: No pitting edema. GAEL MAXWELL Aug 15, 2016 17:36
[2016-08-15 20:00] VITALS: BP 122/71
--- NOTE | 2016-08-15 21:30 | Progress Note ---
DATE: 08/15/2016 INFECTIOUS DISEASE PROGRESS NOTE CLINICAL UPDATE Covering for Dr. Tesfaye. REFERRING PHYSICIAN: Jeremiah Singh D.O. HISTORY OF PRESENT ILLNESS: The patient still has hematuria. REVIEW OF SYSTEMS: Constitutional: Denies fevers . Head And Neck: No head pain, neck pain, thrush, or dysphagia. Cardiac: No chest pain or palpitations. Gastrointestinal: No nausea, vomiting, or diarrhea. Genitourinary: He has hematuria. Pulmonary: Less congestion and shortness of breath. Skin: No new rash. Neurologic: No seizures. No itching. Generalized weakness and fatigue. No fever, chills, or night sweats. Lines: No Lozano. No central line. Extremities: His left hand has less pain and swelling also. Also, edema is less in the legs. PHYSICAL EXAMINATION: GENERAL: Alert and responsive. He is oriented x3. No acute distress. VITAL SIGNS: Temperature is 98.1 degrees, pulse rate is 91, respiratory rate 18, blood pressure 124/69, and saturation 96%. HEAD AND NECK: Oral exam, no thrush. Eye exam, no icterus. Normocephalic. No facial droop. No neck stiffness. HEART: Regular. Possible gallop. No obvious murmur. ABDOMEN: Soft. Positive bowel sounds. LUNGS: Few bilateral rhonchi and crackles. SKIN: No rash or dermatitis. MUSCULOSKELETAL: No effusion or contractures. Legs are without cellulitis. PERIPHERAL VASCULAR: No gangrene. EXTREMITIES: No gangrene. Legs, he has edema. RECTAL: No rectal tube. GENITOURINARY: No Lozano. No CVA tenderness. LINES: Line sites are without phlebitis. NEUROLOGIC: Intact and nonfocal. Alert and oriented x3. LABORATORY DATA: Laboratory data is as follows. White count is 7.3, hemoglobin 13.5, and platelets count 214,000. White count on admission was 14.3. Creatinine is 0.6. Urinalysis had 2+ leukocyte esterase, too many to count RBCs, and only 10 to 15 white blood cells. He also had many squamous cells. Chest x-ray, he had CHF or pulmonary vascular congestion. X-ray of the hand showed it was negative. ASSESSMENT AND PLAN: 1. The patient has left hand boil, possible cellulitis and abscess, status post lot of drainage. Continue doxycycline for six more days. 2. The patient has possible urinary tract infection, however, urine culture only 30,000 to 40,000 mixed organisms. He has significant hematuria. The patient to be seen by Urology. Check final culture of the urine. 3. Chest pain. 4. Congestive heart failure. 5. Hematuria. 6. History of sarcoma. 7. Encephalopathy. 8. Chronic obstructive pulmonary disease. 9. Sleep apnea. 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 11. Hypertension, blood pressure control per primary. 12. Edema. 13. Anemia. 14. Hyperglycemia, possible history of diabetes. 15. Seizure disorder. 16. Obesity. 17. Psychosis. 18. Chronic pain syndrome. 19. Past medical history is noted. 20. Allergies to aspirin, cephalexin, ketorolac, peanuts, and fish. 21. Social history is positive for smoking. 22. MAR was noted. 23. Case was discussed with RN. 24. Social history is positive for smoking. No alcohol or drug abuse. 25. Family history is noncontributory. 26. Continue treatment per primary consultants. Ayden Simmons M.D. DR: KENDELL JOB#: [id number] CC:
[2016-08-15] MEDS: TraZODone 100mg tab ORAL SCH (21:35)
[2016-08-16] VITALS: BP 128/76
[2016-08-16 04:00] VITALS: BP 129/75
[2016-08-16 08:13] VITALS: BP 114/73
--- NOTE | 2016-08-16 10:30 | Pulmonology Progress Note ---
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 PLAN OF CARE serial troponin negative ECG no ischemic changes, patient was ruled out for acute [place] cardio follows ECHO with preserved EF nuclear stress test negative per cardio chest pain atypical, patient has chronic pain syndrome BP management with CCB and [facility] O2 HHN prn pulse oximetry stable on RA sputum cx negative, urine with mixed GPO, blood cx negative, on Doxy for 7 d due to hand boil, leucocytosis resolved urine tox screen + BZD, opiates, marijuana, pet adoption counselor on abstinence from street drugs DVT GI prophylaxis PT/OT seizure precautions, continue Topamax, Depakote and Tegretol , no seizure activity while in the hospital continue Desyrel, Elavil and Prozac pain management, patient declined pain specialist services cardio cleared for dc patient refused to leave, appealed, awaiting for Medicare decision patient refused to be transfer to [place] floor case discussed and evaluated by supervising physician Subjective Allergies: Coded Allergies: KETOROLAC (Verified Allergy, Severe, 08/06/16) ASPIRIN (Verified Allergy, Intermediate, 08/06/16) CEPHALEXIN (Verified Allergy, Mild, 12/13/14) PEANUT (Verified Allergy, Unknown, 11/19/15) Uncoded Allergies: fish (Allergy, Unknown, 08/12/16) Subjective denies chest pain, SOB, reports generalized weakness awaiting for Medicare decision Objective Last 24 Hour Vital Signs Date Time Temp Pulse Resp B/P Pulse Ox O2 Delivery O2 Flow Rate FiO2 08/16/16 08:13 97.7 94 18 114/73 99 Nasal Cannula 2.0 08/16/16 05:41 97.5 08/16/16 04:00 97.7 103 20 129/75 Room Air 08/16/16 00:00 97.5 90 20 128/76 Room Air 08/15/16 20:00 97.9 98 20 122/71 96 Room Air 08/15/16 16:00 98.2 95 18 149/74 96 Room Air 08/15/16 12:00 98.1 91 18 124/69 96 Room Air Intake and Output 08/15/16 08/16/16 19:00 07:00 # Voids 3 Objective General Appearance: no acute distress, other - morbidly obese male HEENT: normocephalic, atraumatic, anicteric, mucous membranes moist Respiratory/Chest: normal breath sounds, no respiratory distress Cardiovascular: normal rate, regular rhythm, no JVD Abdomen: normal bowel sounds, soft, non tender - obese Extremities: no edema 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: no motor/sensory deficits, alert, responsive Musculoskeletal: normal muscle bulk Current Medications Medications (Trade) Dose Ordered Sig/Robert Route PRN Reason Start Time Stop Time Status Last Admin Dose Admin Acetaminophen (Tylenol) 650 mg Q4H PRN ORAL FEVER 08/06/16 07:45 09/05/16 07:44 Amitriptyline HCl (Elavil) 25 mg BEDTIME ORAL 08/06/16 21:00 09/05/16 20:59 08/15/16 21:35 Amlodipine Besylate (Norvasc) 10 mg DAILY ORAL 08/06/16 10:00 09/05/16 09:59 08/15/16 09:13 Calcium Carbonate (Tums) 500 mg Q4H PRN ORAL dyspepsia 08/06/16 07:45 09/05/16 07:44 08/10/16 01:08 Carbamazepine (TEGretol) 300 mg Q12HR ORAL 08/06/16 10:00 09/05/16 09:59 08/15/16 21:36 Diltiazem HCl (Cardizem) 10 mg Q1H PRN IV heart rate more than 120, 08/06/16 07:45 09/05/16 07:44 Divalproex Sodium (Depakote ER) 1,000 mg EVERY 12 HOURS ORAL 08/06/16 10:00 09/05/16 09:59 08/15/16 21:36 Doxycycline Monohydrate (Vibramycin) 100 mg EVERY 12 HOURS ORAL 08/12/16 09:45 08/19/16 09:44 08/15/16 21:35 Enalaprilat (Vasotec) 2.5 mg Q6H PRN IV sbp more than 160 08/06/16 07:45 09/05/16 07:44 Fluoxetine HCl (PROzac) 20 mg DAILY ORAL 08/06/16 10:00 09/05/16 09:59 08/15/16 09:14 Heparin Sodium (Porcine) (Heparin 5000 units/ml) 5,000 units EVERY 12 HOURS SUBQ 08/06/16 10:00 09/05/16 09:59 08/15/16 21:37 Hydromorphone HCl (Dilaudid) 2 mg Q2H PRN IVP For Pain 08/14/16 05:30 08/21/16 05:29 08/16/16 07:22 Lisinopril (Prinivil) 20 mg DAILY ORAL 08/06/16 10:00 09/05/16 09:59 08/15/16 09:11 Methocarbamol (Robaxin) 750 mg QIDPRN PRN ORAL Muscle Spasm 08/06/16 08:30 09/05/16 08:29 Naloxone HCl (Narcan) 0.1 mg STAT PRN IV Sedation scale 3 or 4 08/06/16 11:00 09/05/16 10:59 Neomycin/ Polymyxin/ Bacitracin (Neosporin) 1 applic BID PRN TOPIC Itching/Pruritis 08/10/16 23:00 09/09/16 22:59 08/12/16 13:00 Nitroglycerin (Ntg) 0.4 mg Q5M PRN SL Prn Chest Pain 08/06/16 07:45 09/05/16 07:44 Ondansetron HCl (Zofran) 4 mg Q6H PRN IVP Nausea & Vomiting 08/06/16 07:45 09/05/16 07:44 Pantoprazole (Protonix) 40 mg DAILY ORAL 08/06/16 10:00 09/05/16 09:59 08/15/16 09:13 Phenytoin (Dilantin) 250 mg DAILY ORAL 08/06/16 10:00 09/05/16 09:59 08/15/16 09:14 Polyethylene Glycol (Miralax) 17 gm DAILYPRN PRN ORAL Constipation 08/06/16 07:45 09/05/16 07:44 Pregabalin (Lyrica) 100 mg THREE TIMES A DAY ORAL 08/06/16 18:30 09/05/16 18:29 08/15/16 18:26 Topiramate (Topamax) 50 mg TWICE A DAY ORAL 08/14/16 18:00 09/13/16 17:59 08/15/16 18:26 Trazodone HCl (Desyrel) 100 mg BEDTIME ORAL 6/8/17 21:00 09/05/16 20:59 08/15/16 21:35 Wai ([facility])Almita NP Aug 16, 2016 10:30
[2016-08-16] MEDS: carBAMazepine 200mg tab ORAL SCH ×2 (10:31→20:48)
[2016-08-16] MEDS: Lyrica 50mg cap ORAL SCH ×3 (10:32→17:29)
[2016-08-16] MEDS: Topiramate 25mg tab ORAL SCH ×2 (10:33→17:29)
[2016-08-16] MEDS: Lisinopril 20mg tab ORAL SCH (10:33)
[2016-08-16] MEDS: Phenytoin Susp 100mg/4ml ORAL SCH (10:34)
[2016-08-16] MEDS: Heparin 5000 units/ml inj SUBQ SCH ×3 (10:43→20:54)
[2016-08-16] MEDS: Depakote ER 500mg tab ORAL SCH ×2 (11:23→20:47)
[2016-08-16 11:31] VITALS: BP 147/91
[2016-08-16 15:34] VITALS: BP 110/63
[2016-08-16 20:00] VITALS: BP 143/61
--- NOTE | 2016-08-16 20:37 | General Progress Note ---
Assessment/Plan Problem List: (1) GERD (gastroesophageal reflux disease) ICD Codes: K21.9 - Gastro-esophageal reflux disease without esophagitis SNOMED: 695675064 (2) CHF (congestive heart failure) ICD Codes: I50.9 - Heart failure, unspecified SNOMED: 18022362 (3) ACS (acute coronary syndrome) ICD Codes: I24.9 - Acute ischemic heart disease, unspecified SNOMED: 088934930 (4) Chest pain ICD Codes: R07.9 - Chest pain, unspecified SNOMED: 50331403 Assessment/Plan chf no acute events reviewed chart and labs chronic pain asks for pain meds routinely appealed the dc Subjective Allergies: Coded Allergies: KETOROLAC (Verified Allergy, Severe, 08/06/16) ASPIRIN (Verified Allergy, Intermediate, 08/06/16) CEPHALEXIN (Verified Allergy, Mild, 12/13/14) PEANUT (Verified Allergy, Unknown, 11/19/15) Uncoded Allergies: fish (Allergy, Unknown, 08/12/16) Subjective chronic pain Objective Last 24 Hour Vital Signs Date Time Temp Pulse Resp B/P Pulse Ox O2 Delivery O2 Flow Rate FiO2 08/16/16 15:34 98.2 100 20 110/63 98 Room Air 08/16/16 11:31 97.9 100 20 147/91 96 Room Air 08/16/16 10:33 114/73 08/16/16 10:32 94 114/73 08/16/16 08:13 97.7 94 18 114/73 99 Nasal Cannula 2.0 08/16/16 05:41 97.5 08/16/16 04:00 97.7 103 20 129/75 Room Air 08/16/16 00:00 97.5 90 20 128/76 Room Air Intake and Output 08/15/16 08/16/16 19:00 07:00 # Voids 3 Height (Feet): 5 Height (Inches): 10.00 Weight (Pounds): 329 Teddy Hernandez MD Aug 16, 2016 20:37
[2016-08-16] MEDS: TraZODone 100mg tab ORAL SCH (20:47)
[2016-08-17 00:48] VITALS: BP 125/73
[2016-08-17 04:00] VITALS: BP 107/57
[2016-08-17 08:00] VITALS: BP 134/88
[2016-08-17] MEDS: Phenytoin Susp 100mg/4ml ORAL SCH (09:07)
[2016-08-17] MEDS: Heparin 5000 units/ml inj SUBQ SCH (09:09)
[2016-08-17] MEDS: Lisinopril 20mg tab ORAL SCH (09:10)
[2016-08-17] MEDS: carBAMazepine 200mg tab ORAL SCH (09:11)
[2016-08-17] MEDS: Lyrica 50mg cap ORAL SCH ×2 (09:12→13:00)
[2016-08-17] MEDS: Topiramate 25mg tab ORAL SCH (09:14)
[2016-08-17] MEDS: Depakote ER 500mg tab ORAL SCH (09:22)
[2016-08-17 10:12] LABS: BASOPHILS % (AUTO) 0.8 % (0.0-2.0); EOSINOPHILS % (AUTO) 1.9 % (0.0-3.0); LYMPHOCYTES % (AUTO) 23.1 % (20.0-45.0); MEAN CORPUSCULAR HEMOGLOBIN 30.8 PG (27.0-31.0); MEAN CORPUSCULAR HGB CONC 33.5 G/DL (32.0-36.0); MEAN CORPUSCULAR VOLUME 92 FL (80-99); MEAN PLATELET VOLUME 7.2 FL (6.5-10.1); MONOCYTES % (AUTO) 8.4 % (1.0-10.0); NEUTROPHILS % (AUTO) 65.8 % (45.0-75.0); PLATELET COUNT 212 K/UL (150-450); RED CELL DISTRIBUTION WIDTH 11.9 % (11.6-14.8); WHITE BLOOD COUNT 8.3 K/UL (4.8-10.8)
[2016-08-17 10:28] LABS: ANION GAP 16 (5-15); CALCIUM 8.7 mg/dL (8.6-10.2); CARBON DIOXIDE 23 mEQ/L (20-30); CHLORIDE 94 mEQ/L (98-107); CREATININE 0.7 mg/dL (0.7-1.2); GLOMERULAR FILTRATION RATE > 60 mL/min (>60); HEMOLYSIS 5; SODIUM 133 mEQ/L (135-145)
[2016-08-17 12:00] VITALS: BP 137/84
--- NOTE | 2016-08-17 14:26 | Cardiac Electrophysiology PN ---
Assessment/Plan Assessment/Plan 1. Chest pain. Ruled out for myocardial infarction. EKG is nonischemic and Nuclear stress test showed no ischemia.Echocardiogram showed normal left ventricular systolic function. 2. Hypertension. Continue Norvasc 10 mg daily and lisinopril 20 mg daily. 3. Chronic obstructive pulmonary disease. 4. Psychosis on Desyrel and Elavil. 5. Seizure disorder, on Tegretol. 6. Morbid obesity. 7. Hematuria DW RN Subjective Subjective No chest pain or SOB..Still refusing discharge. Off tele. Objective Last 24 Hour Vital Signs Date Time Temp Pulse Resp B/P Pulse Ox O2 Delivery O2 Flow Rate FiO2 08/17/16 09:14 94 134/88 08/17/16 09:10 134/88 08/17/16 08:00 98.1 99 18 134/88 94 99 08/17/16 04:00 97.7 82 16 107/57 92 Room Air 82 08/17/16 00:48 98.2 100 20 125/73 94 Room Air 100 08/16/16 20:00 98.8 102 20 143/61 96 Room Air 08/16/16 15:34 98.2 100 20 110/63 98 Room Air Intake and Output 08/16/16 08/17/16 19:00 07:00 Intake Total 480 ml Output Total 250 ml Balance 480 ml -250 ml Intake Oral 480 ml Output Urine Total 250 ml # Voids 2 5 Laboratory Tests Test 08/17/16 09:30 White Blood Count 8.3 K/UL (4.8-10.8) Red Blood Count 4.10 M/UL (4.70-6.10) L Hemoglobin 12.6 G/DL (14.2-18.0) L Hematocrit 37.6 % (42.0-52.0) L Mean Corpuscular Volume 92 FL (80-99) Mean Corpuscular Hemoglobin 30.8 PG (27.0-31.0) Mean Corpuscular Hemoglobin Concent 33.5 G/DL (32.0-36.0) Red Cell Distribution Width 11.9 % (11.6-14.8) Platelet Count 212 K/UL (150-450) Mean Platelet Volume 7.2 FL (6.5-10.1) Neutrophils (%) (Auto) 65.8 % (45.0-75.0) Lymphocytes (%) (Auto) 23.1 % (20.0-45.0) Monocytes (%) (Auto) 8.4 % (1.0-10.0) Eosinophils (%) (Auto) 1.9 % (0.0-3.0) Basophils (%) (Auto) 0.8 % (0.0-2.0) Sodium Level 133 mEQ/L (135-145) L Potassium Level 4.0 mEQ/L (3.4-4.9) Chloride Level 94 mEQ/L (98-107) L Carbon Dioxide Level 23 mEQ/L (20-30) Anion Gap 16 (5-15) H Blood Urea Nitrogen 13 mg/dL (7-23) Creatinine 0.7 mg/dL (0.7-1.2) Estimat Glomerular Filtration Rate > 60 mL/min (>60) Glucose Level 301 mg/dL (74-106) H Calcium Level 8.7 mg/dL (8.6-10.2) Objective HEAD AND NECK: Shows no JVD. LUNGS: Clear. CARDIOVASCULAR: Regular S1 and S2 with no gallop or murmur. ABDOMEN: Soft and nontender. Obese. EXTREMITIES: No pitting edema. GAEL MAXWELL Aug 17, 2016 14:26
--- NOTE | 2016-08-17 15:18 | Pulmonology Progress Note ---
Assessment/Plan Problems: (1) ACS (acute coronary syndrome) (2) CHF (congestive heart failure) (3) Morbid obesity (4) Osteosarcoma (5) Hepatitis C Assessment/Plan doing better all labs and noted reviewed no reason for hospitalization Medicare agreed with hospital about discharging the patient. social problems specialist to intervene Subjective ROS Limited/Unobtainable: No Interval Events: pt still refusing the discharge Allergies: Coded Allergies: KETOROLAC (Verified Allergy, Severe, 08/06/16) ASPIRIN (Verified Allergy, Intermediate, 08/06/16) CEPHALEXIN (Verified Allergy, Mild, 12/13/14) PEANUT (Verified Allergy, Unknown, 11/19/15) Uncoded Allergies: fish (Allergy, Unknown, 08/12/16) Objective Last 24 Hour Vital Signs Date Time Temp Pulse Resp B/P Pulse Ox O2 Delivery O2 Flow Rate FiO2 08/17/16 12:00 98.0 94 18 137/84 100 Room Air 92 08/17/16 09:14 94 134/88 08/17/16 09:10 134/88 08/17/16 08:00 98.1 99 18 134/88 94 99 08/17/16 04:00 97.7 82 16 107/57 92 Room Air 82 08/17/16 00:48 98.2 100 20 125/73 94 Room Air 100 08/16/16 20:00 98.8 102 20 143/61 96 Room Air 08/16/16 15:34 98.2 100 20 110/63 98 Room Air Intake and Output 08/16/16 08/17/16 19:00 07:00 Intake Total 480 ml Output Total 250 ml Balance 480 ml -250 ml Intake Oral 480 ml Output Urine Total 250 ml # Voids 2 5 Objective General Appearance: WD/WN HEENT: normocephalic, anicteric Cardiovascular: normal peripheral pulses, regular rhythm Abdomen: normal bowel sounds, soft, non tender Genitourinary: normal external genitalia Skin: no rash Laboratory Tests 08/17/16 09:30: White Blood Count 8.3, Red Blood Count 4.10L, Hemoglobin 12.6L, Hematocrit 37.6L , Mean Corpuscular Volume 92, Mean Corpuscular Hemoglobin 30.8, Mean Corpuscular Hemoglobin Concent 33.5, Red Cell Distribution Width 11.9, Platelet Count 212, Mean Platelet Volume 7.2, Neutrophils (%) (Auto) 65.8, Lymphocytes (% ) (Auto) 23.1, Monocytes (%) (Auto) 8.4, Eosinophils (%) (Auto) 1.9, Basophils ( %) (Auto) 0.8, Sodium Level 133L, Potassium Level 4.0, Chloride Level 94L, Carbon Dioxide Level 23, Anion Gap 16H, Blood Urea Nitrogen 13, Creatinine 0.7, Estimat Glomerular Filtration Rate > 60, Glucose Level 301H, Calcium Level 8.7 Current Medications Medications (Trade) Dose Ordered Sig/Robert Route PRN Reason Start Time Stop Time Status Last Admin Dose Admin Acetaminophen (Tylenol) 650 mg Q4H PRN ORAL FEVER 08/06/16 07:45 09/05/16 07:44 Amitriptyline HCl (Elavil) 25 mg BEDTIME ORAL 08/06/16 21:00 09/05/16 20:59 08/16/16 20:47 Amlodipine Besylate (Norvasc) 10 mg DAILY ORAL 08/06/16 10:00 09/05/16 09:59 08/17/16 09:14 Calcium Carbonate (Tums) 500 mg Q4H PRN ORAL dyspepsia 08/06/16 07:45 09/05/16 07:44 08/10/16 01:08 Carbamazepine (TEGretol) 300 mg Q12HR ORAL 08/06/16 10:00 09/05/16 09:59 08/17/16 09:11 Diltiazem HCl (Cardizem) 10 mg Q1H PRN IV heart rate more than 120, 08/06/16 07:45 09/05/16 07:44 Divalproex Sodium (Depakote ER) 1,000 mg EVERY 12 HOURS ORAL 08/06/16 10:00 09/05/16 09:59 08/17/16 09:22 Doxycycline Monohydrate (Vibramycin) 100 mg EVERY 12 HOURS ORAL 08/12/16 09:45 08/19/16 09:44 08/17/16 09:11 Enalaprilat (Vasotec) 2.5 mg Q6H PRN IV sbp more than 160 08/06/16 07:45 09/05/16 07:44 Fentanyl (Duragesic) 1 patch Q72H TDERMAL 08/17/16 21:00 08/24/16 20:59 Fluoxetine HCl (PROzac) 20 mg DAILY ORAL 08/06/16 10:00 09/05/16 09:59 08/17/16 09:14 Heparin Sodium (Porcine) (Heparin 5000 units/ml) 5,000 units EVERY 12 HOURS SUBQ 08/06/16 10:00 09/05/16 09:59 08/17/16 09:09 Hydromorphone HCl (Dilaudid) 2 mg Q2H PRN IVP For Pain 08/14/16 05:30 08/21/16 05:29 08/17/16 09:16 Lisinopril (Prinivil) 20 mg DAILY ORAL 08/06/16 10:00 09/05/16 09:59 08/17/16 09:10 Methocarbamol (Robaxin) 750 mg QIDPRN PRN ORAL Muscle Spasm 08/06/16 08:30 09/05/16 08:29 Naloxone HCl (Narcan) 0.1 mg STAT PRN IV Sedation scale 3 or 4 08/06/16 11:00 09/05/16 10:59 Neomycin/ Polymyxin/ Bacitracin (Neosporin) 1 applic BID PRN TOPIC Itching/Pruritis 08/10/16 23:00 09/09/16 22:59 08/12/16 13:00 Nitroglycerin (Ntg) 0.4 mg Q5M PRN SL Prn Chest Pain 08/06/16 07:45 09/05/16 07:44 Ondansetron HCl (Zofran) 4 mg Q6H PRN IVP Nausea & Vomiting 08/06/16 07:45 09/05/16 07:44 Pantoprazole (Protonix) 40 mg DAILY ORAL 08/06/16 10:00 09/05/16 09:59 08/17/16 09:13 Phenytoin (Dilantin) 250 mg DAILY ORAL 08/06/16 10:00 09/05/16 09:59 08/17/16 09:07 Polyethylene Glycol (Miralax) 17 gm DAILYPRN PRN ORAL Constipation 08/06/16 07:45 09/05/16 07:44 Pregabalin (Lyrica) 100 mg THREE TIMES A DAY ORAL 08/06/16 18:30 09/05/16 18:29 08/17/16 09:12 Topiramate (Topamax) 50 mg TWICE A DAY ORAL 08/14/16 18:00 09/13/16 17:59 08/17/16 09:14 Trazodone HCl (Desyrel) 100 mg BEDTIME ORAL 08/06/16 21:00 09/05/16 20:59 08/16/16 20:47 LAUREN OCHOA Aug 17, 2016 15:18
--- NOTE | 2016-08-18 12:21 | Discharge Summary ---
Discharge Summary Hospital Course Date of Admission Aug 06, 2016 at 04:28 Date of Discharge Aug 17, 2016 at 17:06 Admitting Diagnosis ACUTE CORONARY SYNDROME HPI Yemi Stuart is a 40 year old male who was admitted on Aug 06, 2016 at 04:28 for Acute Coronary Syndrome Hospital Course dc summary #[id number] Discharge Medications Continued Medications: Acetaminophen* (Acetaminophen 325MG Tablet*) 325 Mg Tablet 650 MG ORAL Q6H PRN for Mild Pain/Temp > 100.5, TAB Amitriptyline HCl (Elavil*) 25 Mg Tablet 25 MG ORAL BEDTIME, TAB Amlodipine Besylate (Norvasc) 10 Mg Tab 10 MG ORAL DAILY, TAB Calcium Carbonate (Calcium) 500 Mg Tab 500 MG ORAL Q4HR PRN for Per rx protocol, #30 TAB 0 Refills Carbamazepine (Tegretol*) 200 Mg Tablet 300 MG PO Q12HR, #10 TAB 0 Refills Dicyclomine Hcl* (Bentyl*) 10 Mg Capsule 20 MG ORAL FOUR TIMES A DAY, CAP Divalproex Sodium* (Depakote Er*) 500 Mg Tab.er.24h 1000 MG ORAL EVERY 12 HOURS, TAB Divalproex Sodium* (Depakote Er*) 500 Mg Tab.er.24h 750 MG ORAL DAILY, TAB Docusate Sodium* (Colace*) 100 Mg Capsule 100 MG ORAL DAILY, CAP Fentanyl 100MCG Patch* (Fentanyl 100MCG Patch*) 1 Each Patch.td72 1 PATCH TDERMAL EVERY 72 HOURS, PATCH Fluoxetine Hcl* (Prozac*) 20 Mg Capsule 20 MG ORAL DAILY, CAP Fluticasone/Salmeterol (Advair 100-50 Diskus) 1 Each Blst.w.dev 1 PUFF INH BID, EA Furosemide* (Lasix*) 40 Mg Tablet 40 MG ORAL DAILY, TAB Heparin Sod (Porcine) (Heparin Sodium*) 5 000/1 Ml Vial 5000 UNITS SUBQ EVERY 12 HOURS, VIAL Hydrochlorothiazide* (Hydrochlorothiazide*) 12.5 Mg Tablet 12.5 MG ORAL DAILY, TAB Hydrocodone Bit/Acetaminophen 5-325* ([place] 5-325 Tablet*) 1 Each Tablet 2 TAB ORAL Q4H PRN for For Pain, TAB Hydrocodone Bit/Acetaminophen 5-325* ([place] 5-325*) 1 Each Tablet 1 TAB ORAL Q4H PRN for For Pain, TAB 0 Refills Lisinopril (Lisinopril*) 20 Mg Tablet 20 MG ORAL DAILY, TAB Lorazepam* (Ativan*) 2 Mg Tablet 2 MG ORAL EVERY 6 HOURS, TAB Magnesium Hydroxide* (Milk Of Magnesia*) 2,400 Mg/10 Ml Oral.susp 30 ML ORAL DAILY PRN for Constipation, ML Methocarbamol* (Robaxin-750*) 750 Mg Tablet 750 MG PO QID PRN for Muscle Spasm, #28 TAB 0 Refills Morphine HCl (Morphine Sulfate ER) 15 Mg Tab 15 MG ORAL Q6H PRN for Severe Pain (Pain Scale 7-10), TAB Morphine Sulfate (Morphine Sulfate ER) 30 Mg Cpmp.24hr 30 MG PO Q8HR, CAP Ondansetron Odt* (Zofran Odt*) 4 Mg Tab.rapdis 4 MG ORAL Q4HR PRN for Nausea & Vomiting, #30 TAB Phenytoin (Dilantin-125) 125 Mg/5 Ml Oral.susp 250 MG PO DAILY, ML Polyethylene Glycol 3350* (Polyethylene Glycol 3350*) 17 Gm Powd.pack 17 GM ORAL BEDTIME PRN for Constipation, PACKET Potassium Chloride (Potassium Chloride) 20 Meq Tablet.er 20 MEQ PO DAILY, TAB Promethazine Hcl* (Phenergan*) 25 Mg Tablet 25 MG ORAL Q4HR, #15 TAB 0 Refills Quetiapine Fumarate (Seroquel Xr) 400 Mg Tab.er.24h 400 MG ORAL DAILY, TAB Temazepam* (Temazepam*) 30 Mg Capsule 15 MG ORAL BEDTIME PRN for Insomnia, CAP Topiramate* (Topamax*) 100 Mg Tablet 50 MG ORAL TWICE A DAY, #60 TAB 0 Refills Trazodone* (Trazodone*) 150 Mg Tablet 100 MG ORAL BEDTIME, TAB Zolpidem Tartrate* (Ambien*) 10 Mg Tablet 10 MG ORAL HS PRN for Insomnia, TAB Discharge Condition Upon Discharge: stable Discharge Disposition Patient was discharged to [facility] (04) Discharge Diagnoses: Wai (Gaby)Almita NP Aug 18, 2016 12:21
--- NOTE | 2016-08-19 03:30 | Discharge Summary 2 SIG ---
DATE OF ADMISSION: 08/06/2016 DATE OF DISCHARGE: 08/17/2016 REASON FOR ADMISSION: This is a 40-year-old male, who presented with complaints of chest pain and shortness of breath. 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 Chest pain was midsternal ongoing for 24 hours. He reports swelling in bilateral lower extremities. He reported difficulty ambulating and feeling short of breath with exertion. The patient has a history of seizure medication, but reports poor compliance. He recently changed his residence from nursing facility to [facility] and [facility] and reported that it is difficult for him to get medication. The patient has an underlying medical history of hypertension, COPD, sarcoma right femur in the back and psychiatric disorder such as bipolar schizoaffective, anxiety and depression. Workup in the emergency room revealed first troponin negative. The patient was afebrile and slightly tachycardic with heart rate of 109. Pulse oximetry is 98% on the room air. White blood count elevated at 14.3. Stable hemoglobin and hematocrit. Troponin is negative. CT is within normal limits. ProBNP is 10. Urine tox screen was positive for benzodiazepine, marijuana and opiates. EKG revealed normal sinus rhythm. No acute ischemic changes. Chest x-ray revealed no consolidation or pneumothorax, but revealed pulmonary congestion. The patient was admitted for further management. ADMITTING DIAGNOSES: Include, 1. Chest pain, rule out acute coronary syndrome. 2. Psychiatric disorder/bipolar, schizophrenia. 3. History of sarcoma right femur and back (self-reported). HOSPITAL STAY: The patient was admitted to telemetry floor. Cardiac consult was requested. The patient had a serial troponin negative. EKG was nonischemic. The patient was ruled out for acute myocardial infarction. Hearing Aid Specialist closely followed. Echocardiogram revealed preserved ejection fraction. Nuclear stress test was negative. Per Cardiology, chest pain was atypical. The patient has a chronic pain syndrome. Blood pressure management was provided with calcium channel pushpa and CHANCE inhibitor and was stable. Supplemental oxygen and pulmonary toilet were provided as needed. Pulse oximetry was stable on the room air. Sputum culture was negative. Urine culture revealed mixed gram-positive organism colony count only 30 to 40. Blood cultures were negative. The patient had a hand boil according to Infectious Disease doctor and was on doxycycline for 7 days. Leukocytosis initially present resolved. As mentioned above, urine tox screen was positive for benzodiazepine, opiates and marijuana. The patient was counseled on abstinence from street drugs. DVT and GI prophylaxis were provided. The patient was working with physical and occupational therapy. The patient was on seizure precaution. Topamax, Depakote and Tegretol were continued. No seizure activity while in the hospital. Desyrel, Elavil and Prozac were continued for management of psychiatric problem. Psychologist seen the patient. Provided support and reality orientation. Pain management was provided. The patient declined pain specialist services. medical management specialist provided services for pain management. Hearing Aid Specialist cleared for discharge. The patient refused to leave and appeal and was waiting for Medicare decision. Further decision was upheld by Medicare and second time the decision was for discharge was upheld by Medicare. The patient stated that he is homeless and has no place to go. clam bed worker and Director of case management met this patient. After long discussion, the patient actually was discharged to [facility] where Dr. Singh has a privilege. The patient was picked up by his brother who was supposed to visit him to [facility]. He declined ambulance services. The patient also noted to have hematuria in the urine. Urinalysis revealed +5 occult blood, and too numerous to count RBC in the urine. Renal parameter was stable. The patient was voiding without difficulty. He has no evidence of urinary tract infection. Hemoglobin and hematocrit remained stable. Last hemoglobin was 12.6 and hematocrit 37.6. Workup for hematuria was recommended. Cystoscopy was recommended on outpatient basis. The patient was stable for discharge. DISCHARGE DIAGNOSES: Include, 1. Atypical chest pain. 2. Hypertension. 3. Chronic obstructive pulmonary disease. 4. Seizure disorder. 5. Morbid obesity. 6. Psychosis. 7. Bipolar. 8. Hand boil. 9. leukocytosis, resolved. 10. Hepatitis C. 11. Osteosarcoma right femur. DISCHARGE MEDICATIONS: See medication reconciliation list. DISCHARGE INSTRUCTIONS: The [facility]. FOLLOWUP: Follow up with medical doctor at the facility. Jeremiah Singh D.O. I have been assigned to dictate discharge summary on this account and I was not involved in the patient's management. Almita Carreno N.P. (vanchtein) DR: YANNI JOB#: [id number] CC:
== END 2016-08-17 17:06 | DRG 313 ==
LOC: EMR 04:00 → 2E 04:28 → EDBEDREQ 05:02
DX: R07.89 Other chest pain (principal); I50.9 Heart failure, unspecified; C40.21 Malignant neoplasm of long bones of right lower limb; Z68.42 Body mass index [BMI] 45.0-49.9, adult; E66.01 Morbid (severe) obesity due to excess calories; G89.4 Chronic pain syndrome; E86.0 Dehydration; B19.20 Unspecified viral hepatitis C without hepatic coma; G40.909 Epilepsy, unspecified, not intractable, without status epilepticus; F31.9 Bipolar disorder, unspecified; J44.9 Chronic obstructive pulmonary disease, unspecified; K21.9 Gastro-esophageal reflux disease without esophagitis; L02.529 Furuncle unspecified hand; Z59.0 Homelessness; I10 Essential (primary) hypertension; Z88.6 Allergy status to analgesic agent; Z88.1 Allergy status to other antibiotic agents; Z88.8 Allergy status to other drugs, medicaments and biological substances; F41.8 Other specified anxiety disorders
CPT/HCPCS: 36415; 71010; 78452; 80048; 80053; 80061; 80300; 81001; 82550; 82553; 83690; 83880; 84443; 84484; 85025; 85610; 85730; 86140; 87040; 87070; 87086; 87205; 93005; 93017; 93306; 94640; 94664; 94760; J2405; J7620

== ENCOUNTER 2016-08-27 13:58 | Inpatient (IN) | payer MEDICARE, OTHER ==
[~2016-08-27] VITALS: Ht 177.8 cm; Wt 138.3 kg
[~2016-08-27 13:58] MED LIST changes: +TEMAZEPAM30 MG ORAL
--- NOTE | 2016-08-27 14:12 | Emergency Room Report ---
History of Present Illness General Chief Complaint: Fever Source: Patient, Medical Record, PMD Present Illness HPI 40YOM BIBEMS with "abnormal labs" - leuks >30K per PMD Dr Singh. Patient endorses worsening cough, SOB without supplemental O2, fever/chills, "102 measured last night." From SNF. Denies chest pain, abd pain, urinary complaints. Admitted -17 August for "chest pain." Blood Cx were negative X2 Urine Cx showed mix zana Allergies: Coded Allergies: KETOROLAC (Verified Allergy, Severe, 08/06/16) ASPIRIN (Verified Allergy, Intermediate, 08/06/16) CEPHALEXIN (Verified Allergy, Mild, 12/13/14) PEANUT (Verified Allergy, Unknown, 11/19/15) Uncoded Allergies: fish (Allergy, Unknown, 08/12/16) Patient History Past Medical History: HTN, COPD, psych hx Past Surgical History: none Pertinent Family History: none Social History: Reports: drug use, smoking Immunizations: UTD Reviewed Nursing Documentation: PMH: Agreed, PSxH: Agreed Nursing Documentation-PMH Past Medical History: No History, Except For Hx Hypertension: Yes Hx COPD: Yes Hx Cancer: Yes - Sarcoma R femur and back Hx Neurological Problems: Yes - mononeuritis Hx Seizures: Yes Review of Systems All Other Systems: negative except mentioned in HPI Physical Exam Vital Signs Date Time Temp Pulse Resp B/P Pulse Ox O2 Delivery O2 Flow Rate FiO2 08/27/16 13:59 98.2 120 26 124/71 92 Nasal Cannula 3.0 Sp02 EP Interpretation: reviewed, abnormal General Appearance: normal inspection, well appearing, alert, GCS 15, non-toxic , mild distress, obese, other - Sitting upright in stretcher, on supplemental O2 Head: normocephalic, atraumatic Eyes: bilateral eye EOMI, bilateral eye PERRL ENT: normal ENT inspection, hearing grossly normal, normal voice Neck: normal inspection, full range of motion, supple, no bony tend Respiratory: normal inspection, lungs clear, normal breath sounds, no respiratory distress, no retraction, no wheezing, other - Rhonchi to left side of lung. Decreased air movement Cardiovascular #1: no edema, tachycardia Gastrointestinal: normal inspection, normal bowel sounds, non tender, soft, no guarding, no hernia Genitourinary: no CVA tenderness Musculoskeletal: normal inspection, back normal, normal range of motion, Liv' s Sign negative Neurologic: normal inspection, alert, oriented x3, responsive, thermoforming operator III-XII nml as tested, motor strength/tone normal, speech normal Psychiatric: normal inspection, judgement/insight normal, mood/affect normal Skin: normal inspection, normal color, no rash Lymphatic: normal inspection Procedures Critical Care Time Critical Care Time 60 min of CC time includes multiple bedside reassessments, ordering of labs, review of previous Blood/Urine Cx, d/w PMD, review of labs, imaging, discussion with admitting hospitalist, adjustment of BIPAP. Patient was evaluated/managed/treated for sepsis/PNA No [facility] nurses/beds so patient boarded in ER for hours Total of 60 min was spent on CC time d/t ER MD continued evaluation/management of patient's critical illness in ED Medical Decision Making Diagnostic Impression: Primary Impression: Sepsis Qualified Codes: A41.9 - Sepsis, unspecified organism Additional Impression: Pneumonia Qualified Codes: J18.9 - Pneumonia, unspecified organism ER Course Sepsis - Fever/chills at SNF. Tachycardic here. Leuks ~30k. - Known COPD - continued desat to 89% on NC here. - Placed on BIPAP for hypoxia - Empiric Abx given - IVF held dt concern for possible CHF. Lasix given. - Blood and Urine Cx pending - No other significant metabolic abnormality Endorsed to Dr Singh at 302pm for [facility] admit. However no [facility] nurses/beds at this time. Patient boarding in the ED so critical care time increased from 30-60 min. EKG Diagnostic Results Rate: tachycardiac Rhythm: NSR ST Segments: no acute changes Rhythm Strip Diag. Results EP Interpretation: yes Rate: 120 Rhythm: NSR, no PVC's, no ectopy Chest X-Ray Diagnostic Results Chest X-Ray Diagnostic Results : Chest X-Ray Ordered: Yes # of Views/Limited/Complete: 1 View EP Interpretation: Yes Interpretation: no pneumothorax, other - Cardiomegaly, left sided PNA Indication: Shortness of Breath Impression: Other - Left sided PNA vs CHF Interpreting ER Provider: Electronically signed by Dr Marino Last Vital Signs Date Time Temp Pulse Resp B/P Pulse Ox O2 Delivery O2 Flow Rate FiO2 08/27/16 13:59 98.2 120 26 124/71 92 Nasal Cannula 3.0 Status: improved Disposition: ADMITTED INPATIENT Condition: Critical NAKITA MARINO M.D. Aug 27, 2016 14:12
[2016-08-27] MEDS ORDERED: Vancomycin 1.5gm/D5W 250ml 325 ML IVPB ONE (14:15)
[2016-08-27] MEDS ORDERED: Clindamycin 900mg 50 ML IVPB ONE (14:15)
[2016-08-27] MEDS ORDERED: Albuterol ud Inhalation HHN ONE ×2 (14:30→15:30)
[2016-08-27] MEDS ORDERED: Solu-MEDROL 125mg Inj IVP ONE (14:30)
[2016-08-27 14:52] LABS: MEAN CORPUSCULAR HEMOGLOBIN 31.2 PG (27.0-31.0); MEAN CORPUSCULAR HGB CONC 33.8 G/DL (32.0-36.0); MEAN CORPUSCULAR VOLUME 92 FL (80-99); MEAN PLATELET VOLUME 8.1 FL (6.5-10.1); PLATELET COUNT 349 K/UL (150-450); RED BLOOD COUNT 4.71 M/UL (4.70-6.10); RED CELL DISTRIBUTION WIDTH 11.8 % (11.6-14.8)
[2016-08-27 14:59] LABS: WHITE BLOOD COUNT 29.6 K/UL (4.8-10.8)
[2016-08-27 15:02] VITALS: BP 124/71
[2016-08-27 15:17] LABS: ALANINE AMINOTRANSFERASE 19 U/L (3-41); ALBUMIN/GLOBULIN RATIO 1.1 (1.0-2.7); ANION GAP 18 (5-15); ASPARTATE AMINO TRANSFERASE 22 U/L (5-40); CALCIUM 9.8 mg/dL (8.6-10.2); CARBON DIOXIDE 22 mEQ/L (20-30); CHLORIDE 92 mEQ/L (98-107); CREATININE 0.7 mg/dL (0.7-1.2); GLOMERULAR FILTRATION RATE > 60 mL/min (>60); HEMOLYSIS 119; POTASSIUM 4.4 mEQ/L (3.4-4.9); SODIUM 132 mEQ/L (135-145); TOTAL PROTEIN 7.2 g/dL (6.6-8.7)
[2016-08-27 15:29] LABS: APPEARANCE,URINE CLEAR; KETONES,URINE 2+ (NEGATIVE); LEUKOCYTE ESTERASE ,URINE NEGATIVE (NEGATIVE); NITRITE,URINE NEGATIVE (NEGATIVE); PH,URINE 5 (4.5-8.0); PROTEIN,URINE NEGATIVE (NEGATIVE); UROBILINOGEN,URINE 1 MG/DL (0.0-1.0)
[2016-08-27] MEDS ORDERED: DuoNeb 0.5-3(2.5)mg/3ml neb HHN PRN (15:30)
[2016-08-27] MEDS ORDERED: Nitroglycerin Subl 0.4mg tab (Bottle Of 25) SL PRN (15:30)
[2016-08-27] MEDS ORDERED: Mylanta II UD 30ml ORAL PRN (15:30)
[2016-08-27] MEDS ORDERED: Promethazine/Codeine 5ml UD ORAL PRN (15:30)
[2016-08-27] MEDS ORDERED: Miralax 17gm pkt ORAL PRN (15:30)
--- NOTE | 2016-08-27 15:32 | Infectious Diseases Prog Note ---
Assessment/Plan Problems: (1) Sepsis Assessment & Plan: with leukocytosis due to the above, will send blood culture and start vancomycin with aztreonam empirically (2) Pneumonia Assessment & Plan: suspect HCAP, will send sputum for culture and start vancomycin with aztreonam (3) COPD (chronic obstructive pulmonary disease) Assessment & Plan: with exacerbation, due to the above, continue nebulizer and oxygen, monitor CXR (4) Psychiatric disorder Assessment & Plan: continue psych meds, consult psych Subjective Allergies: Coded Allergies: KETOROLAC (Verified Allergy, Severe, 08/06/16) ASPIRIN (Verified Allergy, Intermediate, 08/06/16) CEPHALEXIN (Verified Allergy, Mild, 12/13/14) PEANUT (Verified Allergy, Unknown, 11/19/15) Uncoded Allergies: fish (Allergy, Unknown, 08/12/16) Objective Vital Signs Last 24 Hour Vital Signs Date Time Temp Pulse Resp B/P Pulse Ox O2 Delivery O2 Flow Rate FiO2 08/27/16 15:19 45 08/27/16 15:19 113 18 Venturi Mask 10.0 45 08/27/16 15:19 113 18 89 Venturi Mask 10.0 45 08/27/16 15:02 98.2 26 124/71 87 Nasal Cannula 4.0 08/27/16 13:59 98.2 120 26 124/71 92 Nasal Cannula 3.0 Height (Feet): 5 Height (Inches): 10.00 Weight (Pounds): 310 Laboratory Tests Test 08/27/16 14:30 08/27/16 14:45 White Blood Count 29.6 K/UL (4.8-10.8) *H Red Blood Count 4.71 M/UL (4.70-6.10) Hemoglobin 14.7 G/DL (14.2-18.0) Hematocrit 43.5 % (42.0-52.0) Mean Corpuscular Volume 92 FL (80-99) Mean Corpuscular Hemoglobin 31.2 PG (27.0-31.0) H Mean Corpuscular Hemoglobin Concent 33.8 G/DL (32.0-36.0) Red Cell Distribution Width 11.8 % (11.6-14.8) Platelet Count 349 K/UL (150-450) Mean Platelet Volume 8.1 FL (6.5-10.1) Neutrophils (%) (Auto) % (45.0-75.0) Lymphocytes (%) (Auto) % (20.0-45.0) Monocytes (%) (Auto) % (1.0-10.0) Eosinophils (%) (Auto) % (0.0-3.0) Basophils (%) (Auto) % (0.0-2.0) Neutrophils % (Manual) Pending Lymphocytes % (Manual) Pending Platelet Estimate Pending Platelet Morphology Pending Sodium Level 132 mEQ/L (135-145) L Potassium Level 4.4 mEQ/L (3.4-4.9) Chloride Level 92 mEQ/L (98-107) L Carbon Dioxide Level 22 mEQ/L (20-30) Anion Gap 18 (5-15) H Blood Urea Nitrogen 10 mg/dL (7-23) Creatinine 0.7 mg/dL (0.7-1.2) Estimat Glomerular Filtration Rate > 60 mL/min (>60) Glucose Level 225 mg/dL (74-106) H Lactic Acid Level 1.70 mmol/L (0.66-2.22) Calcium Level 9.8 mg/dL (8.6-10.2) Total Bilirubin 0.7 mg/dL (0.0-1.2) Aspartate Amino Transf (AST/SGOT) 22 U/L (5-40) Alanine Aminotransferase (ALT/SGPT) 19 U/L (3-41) Alkaline Phosphatase 137 U/L (40-129) H Total Creatine Kinase 38 U/L (38-174) Creatine Kinase MB Pending Troponin I Pending Total Protein 7.2 g/dL (6.6-8.7) Albumin 3.8 g/dL (3.5-5.2) Globulin 3.4 g/dL Albumin/Globulin Ratio 1.1 (1.0-2.7) Urine Color Pending Urine Appearance Pending Urine pH Pending Urine Specific [place] Pending Urine Protein Pending Urine Glucose (UA) Pending Urine Ketones Pending Urine Occult Blood Pending Urine Nitrite Pending Urine Bilirubin Pending Urine Urobilinogen Pending Urine Leukocyte Esterase Pending Current Medications Medications (Trade) Dose Ordered Sig/Robert Route PRN Reason Start Time Stop Time Status Last Admin Dose Admin Acetaminophen (Tylenol) 650 mg Q4H PRN ORAL fever 08/27/16 15:30 09/26/16 15:29 UNV Al Hydroxide/Mg Hydroxide (Mylanta II) 30 ml Q6H PRN ORAL dyspepsia 08/27/16 15:30 09/26/16 15:29 UNV Albuterol/ Ipratropium (DuoNeb 0.5-3(2.5)mg/3ml) 3 ml EVERY 4 HOURS PRN HHN Shortness of Breath 08/27/16 15:30 09/01/16 15:29 UNV Amitriptyline HCl (Elavil) 25 mg BEDTIME ORAL 08/27/16 21:00 09/26/16 20:59 UNV Amlodipine Besylate (Norvasc) 10 mg DAILY ORAL 08/28/16 09:00 09/27/16 08:59 UNV Aztreonam/Sodium Chloride (Azactam/Sodium Chloride) 55 ml @ 110 mls/hr EVERY 8 HOURS IVPB 08/27/16 22:00 09/03/16 21:59 UNV Divalproex Sodium (Depakote ER) 1,000 mg EVERY 12 HOURS ORAL 08/27/16 21:00 09/26/16 20:59 UNV Heparin Sodium (Porcine) (Heparin 5000 units/ml) 5,000 units EVERY 12 HOURS SUBQ 08/27/16 21:00 09/26/16 20:59 UNV Lisinopril (Prinivil) 20 mg DAILY ORAL 08/28/16 09:00 09/27/16 08:59 UNV Nitroglycerin (Ntg) 0.4 mg Q5M PRN SL Prn Chest Pain 08/27/16 15:30 09/26/16 15:29 UNV Ondansetron HCl (Zofran) 4 mg Q6H PRN IVP Nausea & Vomiting 08/27/16 15:30 09/26/16 15:29 UNV Phenytoin (Dilantin) 250 mg DAILY ORAL 08/28/16 09:00 09/27/16 08:59 UNV Polyethylene Glycol (Miralax) 17 gm DAILYPRN PRN ORAL Constipation 08/27/16 15:30 09/26/16 15:29 UNV Promethazine HCl/ Codeine (Phenergan with Codeine) 5 ml Q4H PRN ORAL For Cough 08/27/16 15:30 09/26/16 15:29 UNV Temazepam 15 mg 15 mg HSPRN PRN ORAL Insomnia 08/27/16 15:30 09/03/16 15:29 UNV Trazodone HCl (Desyrel) 100 mg BEDTIME ORAL 08/27/16 21:00 09/26/16 20:59 UNV Vancomycin HCl (Vanco rx to dose) 1 ea DAILY PRN MISC Per rx protocol 08/27/16 15:30 09/26/16 15:29 UNV Vancomycin HCl/ Dextrose (Vancomycin 1.5gm/D5W 300ml) 325 ml @ 162.5 mls/ hr ONCE ONCE IVPB 08/27/16 14:15 08/27/16 16:14 Uri Tesfaye M.D. Aug 27, 2016 15:32
[2016-08-27 15:48] LABS: CKMB < 1.5 ng/mL (< 6.7)
[2016-08-27 15:49] LABS: BAND NEUTROPHILS % (MANUAL) 5 % (0-8); LYMPHOCYTES % (MANUAL) 12 % (20-45); NEUTROPHILS % (MANUAL) 75 % (45-75); PLATELET MORPHOLOGY NORMAL; TOTAL CELLS COUNTED 100
[2016-08-27 15:50] LABS: BASOPHILS % (MANUAL) 0 % (0-2); EOSINOPHILS % (MANUAL) 0 % (0-3); PLATELET ESTIMATE ADEQUATE; TROPONIN I < 0.30 ng/mL (<=0.30)
[2016-08-27 16:10] VITALS: BP 134/82
--- NOTE | 2016-08-27 16:10 | Diagnostic Imaging Report ---
Indication: SOB Technique: One view of the chest Comparison: 08/06/2016 Findings: Better inspiration currently. There is increased nodular and hazy parenchymal disease throughout the left lung. Less extensive nodular disease is seen in the right lower lung. Findings on both sides are probably increased on the prior study. The heart is borderline enlarged, currently less so than on the prior study, although this is probably due to differences in projection. 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
[2016-08-27] MEDS ORDERED: Morphine Sulfate 2mg/ml Inj IVP ONE (17:00)
[2016-08-27 18:31] VITALS: BP 133/91
--- NOTE | 2016-08-27 19:02 | Consultation ---
DATE OF CONSULTATION: 08/27/2016 INFECTIOUS DISEASE CONSULTATION CONSULTING PHYSICIAN: Uri Tesfaye M.D. REQUESTING PHYSICIAN: Jeremiah Singh D.O. REASON FOR CONSULTATION: Sepsis and pneumonia with fever and cough, recommendation for antibiotic treatment. The patient had allergy cephalosporin. HISTORY OF PRESENT ILLNESS: The patient is a 40-year-old male with significant psych history who was recently admitted at the beginning of July of this year for chest pain and had extensive workup that was negative for ischemia, was [facility] due to abnormal lab with leukocytosis more than 30,000. The patient developed cough with shortness of breath, fever, and chills. His temperature was 102 the night before as per the penitentiary facility staff. He has been coughing phlegm, greenish and brownish sometimes. Denied any chest pain. No nausea or vomiting. No abdominal pain. No urinary symptoms. No hematuria. No other associated symptoms. In the emergency room, he had a chest x-ray that was suspicious for left sided pneumonia. His white count was elevated in the emergency room at 29,000. So, I was consulted by the primary provider for antibiotic treatment and further management due to allergy to cephalexin. REVIEW OF SYSTEMS: Fourteen-point review of systems reviewed, were all negative apart from the one I mentioned above in my H and P. PAST MEDICAL HISTORY: Significant for hypertension, COPD, and psych disorder. PAST SURGICAL HISTORY: Negative. FAMILY HISTORY: Noncontributory. SOCIAL HISTORY: The patient has used drugs and tobacco in the past, but no alcohol. He lives in a penitentiary facility currently. ALLERGIES: Allergic to multiple medications including cephalexin, peanut, aspirin, and ketorolac. MEDICATIONS: He received clindamycin, vancomycin, and methylprednisolone while in the emergency room. For the rest of his medications, please referred to [facility]. LABORATORY DATA: He had white count of 29.6, hemoglobin of 14.7, and platelet count of 349,000. BUN of 10, creatinine of 0.7. AST of 22, ALT of 19. Urinalysis pending at this point. IMAGING: Chest x-ray showed left-sided infiltrate, possible pneumonia versus CHF. PHYSICAL EXAMINATION: VITAL SIGNS: Temperature 98.2, pulse 113, respirations 18, blood pressure 124/87, and saturation 89% on high-flow oxygen of 45% via Venturi mask. GENERAL: A middle-aged male, obese, lying in bed, on a Venturi mask, not in acute distress. HEENT: Normocephalic and atraumatic. Pupils are reactive to light. Unable to assess oral mucosa due to Venturi mask. NECK: Supple. No lymphadenopathy. CARDIOVASCULAR: He is tachycardic. S1 and S2 positive. No murmur. LUNGS: He had wheezing and crackles on both lung bases with poor air entry. ABDOMEN: Soft, obese, nontender and nondistended. Positive bowel sounds. No hepatosplenomegaly or ascites. EXTREMITIES: Trace edema. No cyanosis. SKIN: No rash. No hives. ASSESSMENT AND RECOMMENDATION: 1. Sepsis with leukocytosis, suspect due to pneumonia. We will send blood culture and start vancomycin and aztreonam empiric treatment. 2. Pneumonia, suspect healthcare-acquired pneumonia. We will send sputum for culture and start vancomycin with aztreonam. 3. Chronic obstructive pulmonary disease with exacerbation due to the above. Continue nebulizer treatment and oxygen. Monitor chest x-ray. 4. Psychiatric disorder. Continue psychiatric medications. Consult psychiatrist. Uri Tesfaye M.D. DR: SEVERINO JOB#: [id number] CC:
[2016-08-27 19:15] VITALS: BP 118/81
--- NOTE | 2016-08-27 21:01 | History and Physical Report ---
DATE OF ADMISSION: 08/27/2016 TIME: 3 p.m. CONSULTANTS: 1. Awa Thomas M.D. 2. Ministerio Joe M.D. 3. Dr. Mayo. 4. Chevy Rosenthal M.D. CHIEF COMPLAINT: Abnormal labs, leukocytosis. HISTORY OF PRESENT ILLNESS: This is a gentleman from assisted presented with above-mentioned abnormal labs with white count 32. The patient was transferred to [facility], diagnosed above, being admitted to medical floor for further treatment. Currently, calm, slightly anxious, in bed. No talking. REVIEW OF SYSTEMS: As above. PAST MEDICAL HISTORY: Seizure, obesity, chronic pain, GERD, and encephalopathy. PAST SURGICAL HISTORY: Unknown. MEDICATIONS: , albuterol, methylprednisolone, vancomycin, and clindamycin. ALLERGIES: Aspirin, cephalexin, Ketoralac, peanut, and fish. SOCIAL HISTORY: Positive smoking. Positive alcohol. No intravenous drug abuse. FAMILY HISTORY: Noncontributory. PHYSICAL EXAMINATION: GENERAL: Calm, in bed, oriented x3, in no acute distress. VITAL SIGNS: Temperature 98 degrees, pulse 120, respirations 26, and blood pressure 124/71. CARDIOVASCULAR: No murmurs. LUNGS: Distant and clear. ABDOMEN: Bowel sound positive. Nontender and nondistended. EXTREMITIES: No cyanosis, clubbing, or edema LABORATORY AND DIAGNOSTIC DATA: Labs are pending. ASSESSMENT: 1. Leukocytosis. 2. Sepsis. 3. Tachycardia. 4. Seizure. 5. Obesity. 6. Chronic pain. 7. Gastroesophageal reflux disease. 8. Encephalopathy. PLAN: Resume home medications. OT/PT. Dietary evaluation. CBC and BMP in the morning. Check cultures. Dr. Thomas, Dr. Joe, Dr. Mayo, and Dr. Rosenthal to consult. We will continue to follow this patient medically. Jeremiah Singh D.O. DR: INA JOB#: [id number] CC:
[2016-08-27 21:46] VITALS: BP 123/81
[2016-08-27] MEDS: Aztreonam Inj 2 GM in NS 110 ML IVPB SCH ×2 (21:51→23:42)
[2016-08-27] MEDS ORDERED: Aztreonam Inj 1 GM in NS 55 ML IVPB SCH (22:00)
[2016-08-27] MEDS: Depakote ER 500mg tab ORAL SCH (23:35)
[2016-08-27] MEDS: TraZODone 100mg tab ORAL SCH (23:35)
[2016-08-27] MEDS: Heparin 5000 units/ml inj SUBQ SCH (23:37)
--- NOTE | 2016-08-27 23:49 | Consultation ---
History of Present Illness General Chief Complaint: Fever Present Illness Allergies: Coded Allergies: KETOROLAC (Verified Allergy, Severe, 08/06/16) ASPIRIN (Verified Allergy, Intermediate, 08/06/16) CEPHALEXIN (Verified Allergy, Mild, 12/13/14) PEANUT (Verified Allergy, Unknown, 11/19/15) Uncoded Allergies: fish (Allergy, Unknown, 08/12/16) Medication History Scheduled Amitriptyline HCl (Elavil*), 25 MG ORAL BEDTIME, (Reported) Amlodipine Besylate (Norvasc), 10 MG ORAL DAILY, (Reported) Carbamazepine (Tegretol*), 300 MG PO Q12HR, (Reported) Dicyclomine Hcl* (Bentyl*), 20 MG ORAL FOUR TIMES A DAY, (Reported) Divalproex Sodium* (Depakote Er*), 1,000 MG ORAL EVERY 12 HOURS, (Reported) Divalproex Sodium* (Depakote Er*), 750 MG ORAL DAILY, (Reported) Docusate Sodium* (Colace*), 100 MG ORAL DAILY, (Reported) Fentanyl 100MCG Patch* (Fentanyl 100MCG Patch*), 1 PATCH TDERMAL EVERY 72 HOURS, (Reported) Fluoxetine Hcl* (Prozac*), 20 MG ORAL DAILY, (Reported) Fluticasone/Salmeterol (Advair 100-50 Diskus), 1 PUFF INH BID, (Reported) Furosemide* (Lasix*), 40 MG ORAL DAILY, (Reported) Heparin Sod (Porcine) (Heparin Sodium*), 5,000 UNITS SUBQ EVERY 12 HOURS, ( Reported) Hydrochlorothiazide* (Hydrochlorothiazide*), 12.5 MG ORAL DAILY, (Reported) Lisinopril (Lisinopril*), 20 MG ORAL DAILY, (Reported) Lorazepam* (Ativan*), 2 MG ORAL EVERY 6 HOURS, (Reported) Morphine Sulfate (Morphine Sulfate ER), 30 MG PO Q8HR, (Reported) Phenytoin (Dilantin-125), 250 MG PO DAILY, (Reported) Potassium Chloride (Potassium Chloride), 20 MEQ PO DAILY, (Reported) Promethazine Hcl* (Phenergan*), 25 MG ORAL Q4HR, (Reported) Quetiapine Fumarate (Seroquel Xr), 400 MG ORAL DAILY, (Reported) Topiramate* (Topamax*), 50 MG ORAL TWICE A DAY, (Reported) Trazodone* (Trazodone*), 100 MG ORAL BEDTIME, (Reported) Scheduled PRN Acetaminophen* (Acetaminophen 325MG Tablet*), 650 MG ORAL Q6H PRN for Mild Pain/ Temp > 100.5, (Reported) Calcium Carbonate (Calcium), 500 MG ORAL Q4HR PRN for Per rx protocol, (Reported ) Hydrocodone Bit/Acetaminophen 5-325* (Etlan 5-325 Tablet*), 2 TAB ORAL Q4H PRN for For Pain, (Reported) Hydrocodone Bit/Acetaminophen 5-325* (Etlan 5-325*), 1 TAB ORAL Q4H PRN for For Pain, (Reported) Magnesium Hydroxide* (Milk Of Magnesia*), 30 ML ORAL DAILY PRN for Constipation, (Reported) Methocarbamol* (Robaxin-750*), 750 MG PO QID PRN for Muscle Spasm, (Reported) Morphine HCl (Morphine Sulfate ER), 15 MG ORAL Q6H PRN for Severe Pain (Pain Scale 7-10), (Reported) Ondansetron Odt* (Zofran Odt*), 4 MG ORAL Q4HR PRN for Nausea & Vomiting, ( Reported) Polyethylene Glycol 3350* (Polyethylene Glycol 3350*), 17 GM ORAL BEDTIME PRN for Constipation, (Reported) Temazepam* (Temazepam*), 15 MG ORAL BEDTIME PRN for Insomnia, (Reported) Zolpidem Tartrate* (Ambien*), 10 MG ORAL HS PRN for Insomnia, (Reported) Patient History Healthcare decision maker N Resuscitation status Advanced Directive on File Physical Exam Last 24 Hour Vital Signs Date Time Temp Pulse Resp B/P Pulse Ox O2 Delivery O2 Flow Rate FiO2 08/27/16 22:04 99.4 103 28 123/81 94 Bi-pap 14.0 50 104 08/27/16 21:46 99.4 104 28 123/81 94 Bi-pap 14.0 50 08/27/16 21:20 105 28 95 Full Face 50 08/27/16 19:20 103 26 94 Full Face 50 08/27/16 19:15 98.2 97 27 118/81 94 Bi-pap 14.0 45 08/27/16 18:31 103 30 133/91 93 Bi-pap 45 08/27/16 18:13 98.2 08/27/16 16:55 109 30 Bi-pap 45 08/27/16 16:55 109 30 93 Full Face 50 08/27/16 16:10 116 15 134/82 92 Bi-pap 45 08/27/16 15:29 110 15 92 Venturi Mask 14.0 50 08/27/16 15:19 45 08/27/16 15:19 113 18 Venturi Mask 10.0 45 08/27/16 15:19 113 18 89 Venturi Mask 10.0 45 08/27/16 15:02 98.2 26 124/71 87 Nasal Cannula 4.0 08/27/16 13:59 98.2 120 26 124/71 92 Nasal Cannula 3.0 Laboratory Tests Test 08/27/16 14:30 08/27/16 14:45 White Blood Count 29.6 K/UL (4.8-10.8) *H Red Blood Count 4.71 M/UL (4.70-6.10) Hemoglobin 14.7 G/DL (14.2-18.0) Hematocrit 43.5 % (42.0-52.0) Mean Corpuscular Volume 92 FL (80-99) Mean Corpuscular Hemoglobin 31.2 PG (27.0-31.0) H Mean Corpuscular Hemoglobin Concent 33.8 G/DL (32.0-36.0) Red Cell Distribution Width 11.8 % (11.6-14.8) Platelet Count 349 K/UL (150-450) Mean Platelet Volume 8.1 FL (6.5-10.1) Neutrophils (%) (Auto) % (45.0-75.0) Lymphocytes (%) (Auto) % (20.0-45.0) Monocytes (%) (Auto) % (1.0-10.0) Eosinophils (%) (Auto) % (0.0-3.0) Basophils (%) (Auto) % (0.0-2.0) Differential Total Cells Counted 100 Neutrophils % (Manual) 75 % (45-75) Lymphocytes % (Manual) 12 % (20-45) L Monocytes % (Manual) 8 % (1-10) Eosinophils % (Manual) 0 % (0-3) Basophils % (Manual) 0 % (0-2) Band Neutrophils 5 % (0-8) Platelet Estimate Adequate Platelet Morphology Normal Red Blood Cell Morphology Normal Sodium Level 132 mEQ/L (135-145) L Potassium Level 4.4 mEQ/L (3.4-4.9) Chloride Level 92 mEQ/L (98-107) L Carbon Dioxide Level 22 mEQ/L (20-30) Anion Gap 18 (5-15) H Blood Urea Nitrogen 10 mg/dL (7-23) Creatinine 0.7 mg/dL (0.7-1.2) Estimat Glomerular Filtration Rate > 60 mL/min (>60) Glucose Level 225 mg/dL (74-106) H Lactic Acid Level 1.70 mmol/L (0.66-2.22) Calcium Level 9.8 mg/dL (8.6-10.2) Total Bilirubin 0.7 mg/dL (0.0-1.2) Aspartate Amino Transf (AST/SGOT) 22 U/L (5-40) Alanine Aminotransferase (ALT/SGPT) 19 U/L (3-41) Alkaline Phosphatase 137 U/L (40-129) H Total Creatine Kinase 38 U/L (38-174) Creatine Kinase MB < 1.5 ng/mL (< 6.7) Creatine Kinase MB Relative Index Troponin I < 0.30 ng/mL (<=0.30) Total Protein 7.2 g/dL (6.6-8.7) Albumin 3.8 g/dL (3.5-5.2) Globulin 3.4 g/dL Albumin/Globulin Ratio 1.1 (1.0-2.7) Urine Color Yellow Urine Appearance Clear Urine pH 5 (4.5-8.0) Urine Specific [place] 1.010 (1.005-1.035) Urine Protein Negative (NEGATIVE) Urine Glucose (UA) Negative (NEGATIVE) Urine Ketones 2+ (NEGATIVE) H Urine Occult Blood Negative (NEGATIVE) Urine Nitrite Negative (NEGATIVE) Urine Bilirubin Negative (NEGATIVE) Urine Urobilinogen 1 MG/DL (0.0-1.0) H Urine Leukocyte Esterase Negative (NEGATIVE) Urine Legionella Antigen Pending Height (Feet): 5 Height (Inches): 10.00 Weight (Pounds): 310 Medications Current Medications Medications (Trade) Dose Ordered Sig/Robert Route PRN Reason Start Time Stop Time Status Last Admin Dose Admin Acetaminophen (Tylenol) 650 mg Q4H PRN ORAL fever 08/27/16 15:30 09/26/16 15:29 08/27/16 21:45 Al Hydroxide/Mg Hydroxide (Mylanta II) 30 ml Q6H PRN ORAL dyspepsia 08/27/16 15:30 09/26/16 15:29 Albuterol/ Ipratropium (DuoNeb 0.5-3(2.5)mg/3ml) 3 ml EVERY 4 HOURS PRN HHN Shortness of Breath 08/27/16 15:30 09/01/16 15:29 Amitriptyline HCl (Elavil) 25 mg BEDTIME ORAL 08/27/16 21:00 09/26/16 20:59 08/27/16 23:35 Amlodipine Besylate (Norvasc) 10 mg DAILY ORAL 08/28/16 09:00 09/27/16 08:59 Aztreonam/Sodium Chloride (Azactam/Sodium Chloride) 110 ml @ 220 mls/hr Q8HR IVPB 08/27/16 20:00 09/03/16 19:59 08/27/16 23:42 Divalproex Sodium (Depakote ER) 1,000 mg EVERY 12 HOURS ORAL 08/27/16 21:00 09/26/16 20:59 08/27/16 23:35 Heparin Sodium (Porcine) (Heparin 5000 units/ml) 5,000 units EVERY 12 HOURS SUBQ 08/27/16 21:00 09/26/16 20:59 08/27/16 23:37 Lisinopril (Prinivil) 20 mg DAILY ORAL 08/28/16 09:00 09/27/16 08:59 Nitroglycerin (Ntg) 0.4 mg Q5M PRN SL Prn Chest Pain 08/27/16 15:30 09/26/16 15:29 Ondansetron HCl (Zofran) 4 mg Q6H PRN IVP Nausea & Vomiting 08/27/16 15:30 09/26/16 15:29 Phenytoin (Dilantin) 250 mg DAILY ORAL 08/28/16 09:00 09/27/16 08:59 Polyethylene Glycol (Miralax) 17 gm DAILYPRN PRN ORAL Constipation 08/27/16 15:30 09/26/16 15:29 Promethazine HCl/ Codeine (Phenergan with Codeine) 5 ml Q4H PRN ORAL For Cough 08/27/16 15:30 09/26/16 15:29 Temazepam (Restoril) 15 mg HSPRN PRN ORAL Insomnia 08/27/16 15:30 09/03/16 15:29 Trazodone HCl (Desyrel) 100 mg BEDTIME ORAL 08/27/16 21:00 09/26/16 20:59 08/27/16 23:35 Vancomycin HCl 1.25 gm/Dextrose 275 ml @ 183.708 mls/hr Q6HR IVPB 08/28/16 00:00 09/02/16 00:00 Vancomycin HCl 1 ea 1 ea DAILY PRN MISC Per rx protocol 08/27/16 15:30 09/26/16 15:29 LAUREN OCHOA Aug 27, 2016 23:49
[2016-08-28] VITALS: BP 109/54
[2016-08-28] MEDS ORDERED: Vancomycin 1gm inj IVPB ONE (01:33)
[2016-08-28] MEDS: Vancomycin 1.25 GM in D5W 275 ML IVPB SCH ×4 (01:53→18:08)
[2016-08-28 04:19] VITALS: BP 114/58
[2016-08-28 05:17] LABS: MEAN CORPUSCULAR HGB CONC 34.5 G/DL (32.0-36.0); MEAN CORPUSCULAR VOLUME 93 FL (80-99); MEAN PLATELET VOLUME 8.1 FL (6.5-10.1); PLATELET COUNT 304 K/UL (150-450); RED BLOOD COUNT 4.33 M/UL (4.70-6.10); RED CELL DISTRIBUTION WIDTH 11.8 % (11.6-14.8)
[2016-08-28 05:46] LABS: WHITE BLOOD COUNT 25.2 K/UL (4.8-10.8)
[2016-08-28 05:54] LABS: ANION GAP 21 (5-15); CALCIUM 9.6 mg/dL (8.6-10.2); CARBON DIOXIDE 22 mEQ/L (20-30); CHLORIDE 91 mEQ/L (98-107); CREATININE 0.6 mg/dL (0.7-1.2); GLOMERULAR FILTRATION RATE > 60 mL/min (>60); HEMOLYSIS 2; POTASSIUM 3.7 mEQ/L (3.4-4.9); SODIUM 134 mEQ/L (135-145)
[2016-08-28] MEDS: Aztreonam Inj 2 GM in NS 110 ML IVPB SCH ×3 (06:00→21:45)
[2016-08-28 06:01] LABS: ANION GAP 20 (5-15); CALCIUM 9.7 mg/dL (8.6-10.2); CARBON DIOXIDE 22 mEQ/L (20-30); CHLORIDE 91 mEQ/L (98-107); CREATININE 0.6 mg/dL (0.7-1.2); GLOMERULAR FILTRATION RATE > 60 mL/min (>60); HEMOLYSIS 8; PHOSPHORUS 2.9 mg/dL (2.5-4.8); POTASSIUM 3.7 mEQ/L (3.4-4.9); SODIUM 133 mEQ/L (135-145)
[2016-08-28 08:00] VITALS: BP 141/76
[2016-08-28] MEDS: Phenytoin Susp 100mg/4ml ORAL SCH (08:17)
[2016-08-28] MEDS: Depakote ER 500mg tab ORAL SCH ×2 (08:19→20:28)
[2016-08-28] MEDS: Lisinopril 20mg tab ORAL SCH (08:21)
[2016-08-28 08:25] LABS: BAND NEUTROPHILS % (MANUAL) 0 % (0-8); BASOPHILS % (MANUAL) 0 % (0-2); EOSINOPHILS % (MANUAL) 0 % (0-3); LYMPHOCYTES % (MANUAL) 5 % (20-45); NEUTROPHILS % (MANUAL) 85 % (45-75); PLATELET ESTIMATE ADEQUATE; PLATELET MORPHOLOGY NORMAL; TOTAL CELLS COUNTED 100
[2016-08-28] MEDS: Heparin 5000 units/ml inj SUBQ SCH ×2 (08:25→20:32)
[2016-08-28] MEDS ORDERED: Tubing IV Secondary IV ONE (10:45)
[2016-08-28] MEDS ORDERED: NS 275ml ONE (10:45)
[2016-08-28] MEDS ORDERED: D5W 275ml ONE (10:45)
[2016-08-28 12:00] VITALS: BP 133/74
--- NOTE | 2016-08-28 12:26 | Pulmonology Progress Note ---
Assessment/Plan Assessment/Plan ASSESSMENT sepsis PNA acute hypoxemic respiratory failure requiring BiPAP COPD HTN CATHERINE osteosarcoma seizure disorder morbid obesity PLAN OF CARE FAINA O2 HHN titrate to wean from VM venous Duplex BLE CT chest abx, ID follows, fup with cx antitussive prn BP management with CCB and CHANCE seizure precautions, continue Depakote and Dilantin DVT, GI prophylaxis case discussed and evaluated by supervising physician Subjective Allergies: Coded Allergies: KETOROLAC (Verified Allergy, Severe, 08/06/16) ASPIRIN (Verified Allergy, Intermediate, 08/06/16) CEPHALEXIN (Verified Allergy, Mild, 12/13/14) FISH DERIVED (Unverified Allergy, Unknown, 08/29/16) PEANUT (Verified Allergy, Unknown, 11/19/15) Uncoded Allergies: fish (Allergy, Unknown, 08/12/16) Subjective leucocytosis with some trend down,still significant low grade fever on VM 45%, not tolerated BiPAP Objective Last 24 Hour Vital Signs Date Time Temp Pulse Resp B/P Pulse Ox O2 Delivery O2 Flow Rate FiO2 08/28/16 12:00 98.1 100 19 133/74 95 Venturi Mask 45 08/28/16 09:19 97.4 08/28/16 08:21 141/76 08/28/16 08:21 109 141/76 08/28/16 08:00 45 08/28/16 08:00 99.0 109 19 141/76 89 Venturi Mask 45 08/28/16 07:08 Venturi Mask 14.0 55 08/28/16 07:08 95 Venturi Mask 14.0 55 08/28/16 04:19 97.4 103 20 114/58 93 Simple Mask 15.0 08/28/16 04:07 103 08/28/16 04:00 10.0 45 08/28/16 00:00 94 Venturi Mask 14.0 55 08/28/16 00:00 Venturi Mask 14.0 55 08/28/16 00:00 10.0 45 08/28/16 00:00 97.7 102 19 109/54 95 Simple Mask 15.0 08/27/16 23:32 93 08/27/16 23:00 91 08/27/16 22:04 99.4 103 28 123/81 94 Bi-pap 14.0 50 104 08/27/16 21:46 99.4 104 28 123/81 94 Bi-pap 14.0 50 08/27/16 21:20 105 28 95 Full Face 50 08/27/16 19:20 103 26 94 Full Face 50 08/27/16 19:15 98.2 97 27 118/81 94 Bi-pap 14.0 45 08/27/16 18:31 103 30 133/91 93 Bi-pap 45 08/27/16 18:13 98.2 08/27/16 16:55 109 30 Bi-pap 45 08/27/16 16:55 109 30 93 Full Face 50 08/27/16 16:10 116 15 134/82 92 Bi-pap 45 08/27/16 15:29 110 15 92 Venturi Mask 14.0 50 08/27/16 15:19 45 08/27/16 15:19 113 18 Venturi Mask 10.0 45 08/27/16 15:19 113 18 89 Venturi Mask 10.0 45 08/27/16 15:02 98.2 26 124/71 87 Nasal Cannula 4.0 08/27/16 13:59 98.2 120 26 124/71 92 Nasal Cannula 3.0 Intake and Output 08/27/16 08/28/16 19:00 07:00 Intake Total 0 ml Output Total 200 ml Balance 0 ml -200 ml Intake Oral 0 ml Output Urine Total 200 ml # Voids 2 General Appearance: no acute distress, other - awake, alert, morbidly obese male HEENT: normocephalic, atraumatic, anicteric Respiratory/Chest: no accessory muscle use, decreased breath sounds Cardiovascular: normal rate, regular rhythm Abdomen: normal bowel sounds, soft, non tender - obese 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: alert, responsive Musculoskeletal: normal muscle bulk Laboratory Tests 08/27/16 14:30: White Blood Count 29.6*H, Red Blood Count 4.71, Hemoglobin 14.7, Hematocrit 43.5 , Mean Corpuscular Volume 92, Mean Corpuscular Hemoglobin 31.2H, Mean Corpuscular Hemoglobin Concent 33.8, Red Cell Distribution Width 11.8, Platelet Count 349, Mean Platelet Volume 8.1, Neutrophils (%) (Auto) , Lymphocytes (%) ( Auto) , Monocytes (%) (Auto) , Eosinophils (%) (Auto) , Basophils (%) (Auto) , Differential Total Cells Counted 100, Neutrophils % (Manual) 75, Lymphocytes % ( Manual) 12L, Monocytes % (Manual) 8, Eosinophils % (Manual) 0, Basophils % ( Manual) 0, Band Neutrophils 5, Platelet Estimate Adequate, Platelet Morphology Normal, Red Blood Cell Morphology Normal, Sodium Level 132L, Potassium Level 4.4 , Chloride Level 92L, Carbon Dioxide Level 22, Anion Gap 18H, Blood Urea Nitrogen 10, Creatinine 0.7, Estimat Glomerular Filtration Rate > 60, Glucose Level 225H, Lactic Acid Level 1.70, Calcium Level 9.8, Total Bilirubin 0.7, Aspartate Amino Transf (AST/SGOT) 22, Alanine Aminotransferase (ALT/SGPT) 19, Alkaline Phosphatase 137H, Total Creatine Kinase 38, Creatine Kinase MB < 1.5, Creatine Kinase MB Relative Index , Troponin I < 0.30, Total Protein 7.2, Albumin 3.8, Globulin 3.4, Albumin/Globulin Ratio 1.1 08/27/16 14:45: Urine Color Yellow, Urine Appearance Clear, Urine pH 5, Urine Specific [place] 1.010, Urine Protein Negative, Urine Glucose (UA) Negative, Urine Ketones 2+H, Urine Occult Blood Negative, Urine Nitrite Negative, Urine Bilirubin Negative, Urine Urobilinogen 1H, Urine Leukocyte Esterase Negative, Urine Legionella Antigen [Pending] 08/28/16 03:50: White Blood Count 25.2*H, Red Blood Count 4.33L, Hemoglobin 13.9L, Hematocrit 40.2L, Mean Corpuscular Volume 93, Mean Corpuscular Hemoglobin 32.0H, Mean Corpuscular Hemoglobin Concent 34.5, Red Cell Distribution Width 11.8, Platelet Count 304, Mean Platelet Volume 8.1, Neutrophils (%) (Auto) , Lymphocytes (%) ( Auto) , Monocytes (%) (Auto) , Eosinophils (%) (Auto) , Basophils (%) (Auto) , Differential Total Cells Counted 100, Neutrophils % (Manual) 85H, Lymphocytes % (Manual) 5L, Monocytes % (Manual) 10, Eosinophils % (Manual) 0, Basophils % ( Manual) 0, Band Neutrophils 0, Platelet Estimate Adequate, Platelet Morphology Normal, Red Blood Cell Morphology Normal, Sodium Level 133L, Potassium Level 3.7 , Chloride Level 91L, Carbon Dioxide Level 22, Anion Gap 20H, Blood Urea Nitrogen 16, Creatinine 0.6L, Estimat Glomerular Filtration Rate > 60, Glucose Level 226H, Calcium Level 9.7, Albumin 3.5, Phosphorus Level 2.9 Current Medications Medications (Trade) Dose Ordered Sig/Robert Route PRN Reason Start Time Stop Time Status Last Admin Dose Admin Acetaminophen (Tylenol) 650 mg Q4H PRN ORAL fever 08/27/16 15:30 09/26/16 15:29 08/28/16 08:20 Al Hydroxide/Mg Hydroxide (Mylanta II) 30 ml Q6H PRN ORAL dyspepsia 08/27/16 15:30 09/26/16 15:29 Albuterol/ Ipratropium (DuoNeb 0.5-3(2.5)mg/3ml) 3 ml EVERY 4 HOURS PRN HHN Shortness of Breath 08/27/16 15:30 09/01/16 15:29 Amitriptyline HCl (Elavil) 25 mg BEDTIME ORAL 08/27/16 21:00 09/26/16 20:59 08/27/16 23:35 Amlodipine Besylate (Norvasc) 10 mg DAILY ORAL 08/28/16 09:00 09/27/16 08:59 08/28/16 08:21 Aztreonam/Sodium Chloride (Azactam/Sodium Chloride) 110 ml @ 220 mls/hr Q8HR IVPB 08/27/16 20:00 09/03/16 19:59 08/27/16 23:42 Divalproex Sodium (Depakote ER) 1,000 mg EVERY 12 HOURS ORAL 08/27/16 21:00 09/26/16 20:59 08/28/16 08:19 Heparin Sodium (Porcine) (Heparin 5000 units/ml) 5,000 units EVERY 12 HOURS SUBQ 08/27/16 21:00 09/26/16 20:59 08/28/16 08:25 Lisinopril (Prinivil) 20 mg DAILY ORAL 08/28/16 09:00 09/27/16 08:59 08/28/16 08:21 Nitroglycerin (Ntg) 0.4 mg Q5M PRN SL Prn Chest Pain 08/27/16 15:30 09/26/16 15:29 Ondansetron HCl (Zofran) 4 mg EVERY 4 HOURS PRN IVP Nausea & Vomiting 08/28/16 09:15 09/27/16 09:14 08/28/16 09:31 Phenytoin (Dilantin) 250 mg DAILY ORAL 08/28/16 09:00 09/27/16 08:59 08/28/16 08:17 Polyethylene Glycol (Miralax) 17 gm DAILYPRN PRN ORAL Constipation 08/27/16 15:30 09/26/16 15:29 Promethazine HCl/ Codeine (Phenergan with Codeine) 5 ml Q4H PRN ORAL For Cough 08/27/16 15:30 09/26/16 15:29 Temazepam (Restoril) 15 mg HSPRN PRN ORAL Insomnia 08/27/16 15:30 09/03/16 15:29 Trazodone HCl (Desyrel) 100 mg BEDTIME ORAL 08/27/16 21:00 09/26/16 20:59 08/27/16 23:35 Vancomycin HCl 1.25 gm/Dextrose 275 ml @ 183.708 mls/hr Q6HR IVPB 08/28/16 00:00 09/02/16 00:00 08/28/16 11:27 Vancomycin HCl 1 ea 1 ea DAILY PRN MISC Per rx protocol 08/27/16 15:30 09/26/16 15:29 Almita Carreno NP ([facility]) Aug 28, 2016 12:26
--- NOTE | 2016-08-28 13:14 | General Progress Note ---
Assessment/Plan Problem List: (1) Morbid obesity ICD Codes: E66.01 - Morbid (severe) obesity due to excess calories SNOMED: 308319343 (2) Leukocytosis ICD Codes: D72.829 - Elevated white blood cell count, unspecified SNOMED: 810054285, 417987410 (3) Chronic pain ICD Codes: G89.29 - Other chronic pain SNOMED: 61930623 (4) GERD (gastroesophageal reflux disease) ICD Codes: K21.9 - Gastro-esophageal reflux disease without esophagitis SNOMED: 555731443 (5) Sepsis ICD Codes: A41.9 - Sepsis, unspecified organism SNOMED: 61839851 Qualifiers: Qualified Codes: A41.9 - Sepsis, unspecified organism (6) Pneumonia ICD Codes: J18.9 - Pneumonia, unspecified organism SNOMED: 638463585 Qualifiers: Qualified Codes: J18.9 - Pneumonia, unspecified organism (7) COPD (chronic obstructive pulmonary disease) ICD Codes: J44.9 - Chronic obstructive pulmonary disease, unspecified SNOMED: 19523216 Status: stable, progressing, tolerating diet Assessment/Plan o2 pulm tx abx ot pt diet cbc bmp am Subjective Constitutional: Reports: weakness Respiratory: Reports: shortness of breath Allergies: Coded Allergies: KETOROLAC (Verified Allergy, Severe, 08/06/16) ASPIRIN (Verified Allergy, Intermediate, 08/06/16) CEPHALEXIN (Verified Allergy, Mild, 12/13/14) PEANUT (Verified Allergy, Unknown, 11/19/15) Uncoded Allergies: fish (Allergy, Unknown, 08/12/16) All Systems: reviewed and negative except above Subjective o2 mask in place sleeping Objective Last 24 Hour Vital Signs Date Time Temp Pulse Resp B/P Pulse Ox O2 Delivery O2 Flow Rate FiO2 08/28/16 12:00 98.1 100 19 133/74 95 Venturi Mask 45 08/28/16 09:19 97.4 08/28/16 08:21 141/76 08/28/16 08:21 109 141/76 08/28/16 08:00 45 08/28/16 08:00 99.0 109 19 141/76 89 Venturi Mask 45 08/28/16 07:08 Venturi Mask 14.0 55 08/28/16 07:08 95 Venturi Mask 14.0 55 08/28/16 04:19 97.4 103 20 114/58 93 Simple Mask 15.0 08/28/16 04:07 103 08/28/16 04:00 10.0 45 08/28/16 00:00 94 Venturi Mask 14.0 55 08/28/16 00:00 Venturi Mask 14.0 55 08/28/16 00:00 10.0 45 08/28/16 00:00 97.7 102 19 109/54 95 Simple Mask 15.0 08/27/16 23:32 93 08/27/16 23:00 91 08/27/16 22:04 99.4 103 28 123/81 94 Bi-pap 14.0 50 104 08/27/16 21:46 99.4 104 28 123/81 94 Bi-pap 14.0 50 08/27/16 21:20 105 28 95 Full Face 50 08/27/16 19:20 103 26 94 Full Face 50 08/27/16 19:15 98.2 97 27 118/81 94 Bi-pap 14.0 45 08/27/16 18:31 103 30 133/91 93 Bi-pap 45 08/27/16 18:13 98.2 08/27/16 16:55 109 30 Bi-pap 45 08/27/16 16:55 109 30 93 Full Face 50 08/27/16 16:10 116 15 134/82 92 Bi-pap 45 08/27/16 15:29 110 15 92 Venturi Mask 14.0 50 08/27/16 15:19 45 08/27/16 15:19 113 18 Venturi Mask 10.0 45 08/27/16 15:19 113 18 89 Venturi Mask 10.0 45 08/27/16 15:02 98.2 26 124/71 87 Nasal Cannula 4.0 08/27/16 13:59 98.2 120 26 124/71 92 Nasal Cannula 3.0 Intake and Output 08/27/16 08/28/16 19:00 07:00 Intake Total 0 ml Output Total 200 ml Balance 0 ml -200 ml Intake Oral 0 ml Output Urine Total 200 ml # Voids 2 Laboratory Tests 08/27/16 14:30: White Blood Count 29.6*H, Red Blood Count 4.71, Hemoglobin 14.7, Hematocrit 43.5 , Mean Corpuscular Volume 92, Mean Corpuscular Hemoglobin 31.2H, Mean Corpuscular Hemoglobin Concent 33.8, Red Cell Distribution Width 11.8, Platelet Count 349, Mean Platelet Volume 8.1, Neutrophils (%) (Auto) , Lymphocytes (%) ( Auto) , Monocytes (%) (Auto) , Eosinophils (%) (Auto) , Basophils (%) (Auto) , Differential Total Cells Counted 100, Neutrophils % (Manual) 75, Lymphocytes % ( Manual) 12L, Monocytes % (Manual) 8, Eosinophils % (Manual) 0, Basophils % ( Manual) 0, Band Neutrophils 5, Platelet Estimate Adequate, Platelet Morphology Normal, Red Blood Cell Morphology Normal, Sodium Level 132L, Potassium Level 4.4 , Chloride Level 92L, Carbon Dioxide Level 22, Anion Gap 18H, Blood Urea Nitrogen 10, Creatinine 0.7, Estimat Glomerular Filtration Rate > 60, Glucose Level 225H, Lactic Acid Level 1.70, Calcium Level 9.8, Total Bilirubin 0.7, Aspartate Amino Transf (AST/SGOT) 22, Alanine Aminotransferase (ALT/SGPT) 19, Alkaline Phosphatase 137H, Total Creatine Kinase 38, Creatine Kinase MB < 1.5, Creatine Kinase MB Relative Index , Troponin I < 0.30, Total Protein 7.2, Albumin 3.8, Globulin 3.4, Albumin/Globulin Ratio 1.1 08/27/16 14:45: Urine Color Yellow, Urine Appearance Clear, Urine pH 5, Urine Specific [place] 1.010, Urine Protein Negative, Urine Glucose (UA) Negative, Urine Ketones 2+H, Urine Occult Blood Negative, Urine Nitrite Negative, Urine Bilirubin Negative, Urine Urobilinogen 1H, Urine Leukocyte Esterase Negative, Urine Legionella Antigen [Pending] 08/28/16 03:50: White Blood Count 25.2*H, Red Blood Count 4.33L, Hemoglobin 13.9L, Hematocrit 40.2L, Mean Corpuscular Volume 93, Mean Corpuscular Hemoglobin 32.0H, Mean Corpuscular Hemoglobin Concent 34.5, Red Cell Distribution Width 11.8, Platelet Count 304, Mean Platelet Volume 8.1, Neutrophils (%) (Auto) , Lymphocytes (%) ( Auto) , Monocytes (%) (Auto) , Eosinophils (%) (Auto) , Basophils (%) (Auto) , Differential Total Cells Counted 100, Neutrophils % (Manual) 85H, Lymphocytes % (Manual) 5L, Monocytes % (Manual) 10, Eosinophils % (Manual) 0, Basophils % ( Manual) 0, Band Neutrophils 0, Platelet Estimate Adequate, Platelet Morphology Normal, Red Blood Cell Morphology Normal, Sodium Level 133L, Potassium Level 3.7 , Chloride Level 91L, Carbon Dioxide Level 22, Anion Gap 20H, Blood Urea Nitrogen 16, Creatinine 0.6L, Estimat Glomerular Filtration Rate > 60, Glucose Level 226H, Calcium Level 9.7, Albumin 3.5, Phosphorus Level 2.9 Height (Feet): 5 Height (Inches): 10.00 Weight (Pounds): 305 General Appearance: lethargic EENT: normal ENT inspection Neck: normal alignment Cardiovascular: normal peripheral pulses, normal rate, regular rhythm Respiratory/Chest: chest wall non-tender, decreased breath sounds Abdomen: normal bowel sounds, non tender, soft Extremities: normal inspection Edema: no edema noted Arm (L), no edema noted Arm (R), no edema noted Leg (L), no edema noted Leg (R), no edema noted Pedal (L), no edema noted Pedal (R), no edema noted Generalized Neurologic: motor weakness Skin: normal pigmentation, warm/dry MARQUEZ FOY Aug 28, 2016 13:14
--- NOTE | 2016-08-28 13:29 | Infectious Diseases Prog Note ---
Assessment/Plan Problems: (1) Pneumonia Assessment & Plan: suspect HCAP, await sputum for culture and continue vancomycin with aztreonam (2) Sepsis Assessment & Plan: with leukocytosis due to the above, received steroids too which may have attributed to his leukocytosis today , await blood culture and continue vancomycin with aztreonam empirically (3) COPD (chronic obstructive pulmonary disease) Assessment & Plan: with exacerbation, due to the above, continue nebulizer and oxygen, monitor CXR (4) Psychiatric disorder Assessment & Plan: continue psych meds, consult psych Subjective Constitutional: Reports: anorexia, fatigue HEENT: Denies: congestion, coryza, dysphagia, hearing change, no symptoms, other, visual change Respiratory: Reports: other - wheezing, productive cough Breasts: Denies: discharge, no symptoms, other, swelling, tenderness Cardiovascular: Denies: chest pain, dyspnea on exertion, no symptoms, other, palpitations Gastrointestinal/Abdominal: Reports: nausea, vomiting Genitourinary: Denies: dysuria, frequency, hematuria, no symptoms, nocturia, other Neurologic: Denies: confusion, headache, no symptoms, numbness, other, weakness Psychiatric: Reports: anxiety Skin: Denies: no symptoms, other, rash, ulcer Endocrine: Denies: feels cold, feels warm, no symptoms, other Allergies: Coded Allergies: KETOROLAC (Verified Allergy, Severe, 08/06/16) ASPIRIN (Verified Allergy, Intermediate, 08/06/16) CEPHALEXIN (Verified Allergy, Mild, 12/13/14) PEANUT (Verified Allergy, Unknown, 11/19/15) Uncoded Allergies: fish (Allergy, Unknown, 08/12/16) Objective Vital Signs Last 24 Hour Vital Signs Date Time Temp Pulse Resp B/P Pulse Ox O2 Delivery O2 Flow Rate FiO2 08/28/16 12:00 98.1 100 19 133/74 95 Venturi Mask 45 08/28/16 12:00 93 08/28/16 12:00 45 08/28/16 09:19 97.4 08/28/16 08:21 141/76 08/28/16 08:21 109 141/76 08/28/16 08:00 104 08/28/16 08:00 45 08/28/16 08:00 99.0 109 19 141/76 89 Venturi Mask 45 08/28/16 07:08 Venturi Mask 14.0 55 6/30/17 07:08 95 Venturi Mask 14.0 55 08/28/16 04:19 97.4 103 20 114/58 93 Simple Mask 15.0 08/28/16 04:07 103 08/28/16 04:00 10.0 45 08/28/16 00:00 94 Venturi Mask 14.0 55 08/28/16 00:00 Venturi Mask 14.0 55 08/28/16 00:00 10.0 45 08/28/16 00:00 97.7 102 19 109/54 95 Simple Mask 15.0 08/27/16 23:32 93 08/27/16 23:00 91 08/27/16 22:04 99.4 103 28 123/81 94 Bi-pap 14.0 50 104 08/27/16 21:46 99.4 104 28 123/81 94 Bi-pap 14.0 50 08/27/16 21:20 105 28 95 Full Face 50 08/27/16 19:20 103 26 94 Full Face 50 08/27/16 19:15 98.2 97 27 118/81 94 Bi-pap 14.0 45 08/27/16 18:31 103 30 133/91 93 Bi-pap 45 08/27/16 18:13 98.2 08/27/16 16:55 109 30 Bi-pap 45 08/27/16 16:55 109 30 93 Full Face 50 08/27/16 16:10 116 15 134/82 92 Bi-pap 45 08/27/16 15:29 110 15 92 Venturi Mask 14.0 50 08/27/16 15:19 45 08/27/16 15:19 113 18 Venturi Mask 10.0 45 08/27/16 15:19 113 18 89 Venturi Mask 10.0 45 08/27/16 15:02 98.2 26 124/71 87 Nasal Cannula 4.0 08/27/16 13:59 98.2 120 26 124/71 92 Nasal Cannula 3.0 Height (Feet): 5 Height (Inches): 10.00 Weight (Pounds): 305 General Appearance: WD/WN, no acute distress HEENT: normocephalic, atraumatic, anicteric, mucous membranes moist, EOMI, supple, no JVD Respiratory/Chest: normal breath sounds, no respiratory distress, no accessory muscle use, decreased breath sounds, expiratory wheezing Cardiovascular: normal peripheral pulses, normal rate, regular rhythm, no gallop/murmur, no JVD Abdomen: normal bowel sounds, soft, non tender, no organomegaly, non distended , no mass, no scars Extremities: no cyanosis, no clubbing Skin: no rash, no lesions Lymphatic: no neck adenopathy, no groin adenopathy Musculoskeletal: normal muscle bulk Laboratory Tests Test 08/27/16 14:30 08/27/16 14:45 08/28/16 03:50 White Blood Count 29.6 K/UL (4.8-10.8) *H 25.2 K/UL (4.8-10.8) *H Red Blood Count 4.71 M/UL (4.70-6.10) 4.33 M/UL (4.70-6.10) L Hemoglobin 14.7 G/DL (14.2-18.0) 13.9 G/DL (14.2-18.0) L Hematocrit 43.5 % (42.0-52.0) 40.2 % (42.0-52.0) L Mean Corpuscular Volume 92 FL (80-99) 93 FL (80-99) Mean Corpuscular Hemoglobin 31.2 PG (27.0-31.0) H 32.0 PG (27.0-31.0) H Mean Corpuscular Hemoglobin Concent 33.8 G/DL (32.0-36.0) 34.5 G/DL (32.0-36.0) Red Cell Distribution Width 11.8 % (11.6-14.8) 11.8 % (11.6-14.8) Platelet Count 349 K/UL (150-450) 304 K/UL (150-450) Mean Platelet Volume 8.1 FL (6.5-10.1) 8.1 FL (6.5-10.1) Neutrophils (%) (Auto) % (45.0-75.0) % (45.0-75.0) Lymphocytes (%) (Auto) % (20.0-45.0) % (20.0-45.0) Monocytes (%) (Auto) % (1.0-10.0) % (1.0-10.0) Eosinophils (%) (Auto) % (0.0-3.0) % (0.0-3.0) Basophils (%) (Auto) % (0.0-2.0) % (0.0-2.0) Differential Total Cells Counted 100 100 Neutrophils % (Manual) 75 % (45-75) 85 % (45-75) H Lymphocytes % (Manual) 12 % (20-45) L 5 % (20-45) L Monocytes % (Manual) 8 % (1-10) 10 % (1-10) Eosinophils % (Manual) 0 % (0-3) 0 % (0-3) Basophils % (Manual) 0 % (0-2) 0 % (0-2) Band Neutrophils 5 % (0-8) 0 % (0-8) Platelet Estimate Adequate Adequate Platelet Morphology Normal Normal Red Blood Cell Morphology Normal Normal Sodium Level 132 mEQ/L (135-145) L 133 mEQ/L (135-145) L Potassium Level 4.4 mEQ/L (3.4-4.9) 3.7 mEQ/L (3.4-4.9) Chloride Level 92 mEQ/L (98-107) L 91 mEQ/L (98-107) L Carbon Dioxide Level 22 mEQ/L (20-30) 22 mEQ/L (20-30) Anion Gap 18 (5-15) H 20 (5-15) H Blood Urea Nitrogen 10 mg/dL (7-23) 16 mg/dL (7-23) Creatinine 0.7 mg/dL (0.7-1.2) 0.6 mg/dL (0.7-1.2) L Estimat Glomerular Filtration Rate > 60 mL/min (>60) > 60 mL/min (>60) Glucose Level 225 mg/dL (74-106) H 226 mg/dL (74-106) H Lactic Acid Level 1.70 mmol/L (0.66-2.22) Calcium Level 9.8 mg/dL (8.6-10.2) 9.7 mg/dL (8.6-10.2) Total Bilirubin 0.7 mg/dL (0.0-1.2) Aspartate Amino Transf (AST/SGOT) 22 U/L (5-40) Alanine Aminotransferase (ALT/SGPT) 19 U/L (3-41) Alkaline Phosphatase 137 U/L (40-129) H Total Creatine Kinase 38 U/L (38-174) Creatine Kinase MB < 1.5 ng/mL (< 6.7) Creatine Kinase MB Relative Index Troponin I < 0.30 ng/mL (<=0.30) Total Protein 7.2 g/dL (6.6-8.7) Albumin 3.8 g/dL (3.5-5.2) 3.5 g/dL (3.5-5.2) Globulin 3.4 g/dL Albumin/Globulin Ratio 1.1 (1.0-2.7) Urine Color Yellow Urine Appearance Clear Urine pH 5 (4.5-8.0) Urine Specific [place] 1.010 (1.005-1.035) Urine Protein Negative (NEGATIVE) Urine Glucose (UA) Negative (NEGATIVE) Urine Ketones 2+ (NEGATIVE) H Urine Occult Blood Negative (NEGATIVE) Urine Nitrite Negative (NEGATIVE) Urine Bilirubin Negative (NEGATIVE) Urine Urobilinogen 1 MG/DL (0.0-1.0) H Urine Leukocyte Esterase Negative (NEGATIVE) Urine Legionella Antigen Pending Phosphorus Level 2.9 mg/dL (2.5-4.8) Current Medications Medications (Trade) Dose Ordered Sig/Robert Route PRN Reason Start Time Stop Time Status Last Admin Dose Admin Acetaminophen (Tylenol) 650 mg Q4H PRN ORAL fever 08/27/16 15:30 09/26/16 15:29 08/28/16 08:20 Al Hydroxide/Mg Hydroxide (Mylanta II) 30 ml Q6H PRN ORAL dyspepsia 08/27/16 15:30 09/26/16 15:29 Albuterol/ Ipratropium (DuoNeb 0.5-3(2.5)mg/3ml) 3 ml EVERY 4 HOURS PRN HHN Shortness of Breath 08/27/16 15:30 09/01/16 15:29 Amitriptyline HCl (Elavil) 25 mg BEDTIME ORAL 08/27/16 21:00 09/26/16 20:59 08/27/16 23:35 Amlodipine Besylate (Norvasc) 10 mg DAILY ORAL 08/28/16 09:00 09/27/16 08:59 08/28/16 08:21 Aztreonam/Sodium Chloride (Azactam/Sodium Chloride) 110 ml @ 220 mls/hr Q8HR IVPB 08/27/16 20:00 09/03/16 19:59 08/27/16 23:42 Divalproex Sodium (Depakote ER) 1,000 mg EVERY 12 HOURS ORAL 08/27/16 21:00 09/26/16 20:59 08/28/16 08:19 Heparin Sodium (Porcine) (Heparin 5000 units/ml) 5,000 units EVERY 12 HOURS SUBQ 08/27/16 21:00 09/26/16 20:59 08/28/16 08:25 Lisinopril (Prinivil) 20 mg DAILY ORAL 08/28/16 09:00 09/27/16 08:59 08/28/16 08:21 Nitroglycerin (Ntg) 0.4 mg Q5M PRN SL Prn Chest Pain 08/27/16 15:30 09/26/16 15:29 Ondansetron HCl (Zofran) 4 mg EVERY 4 HOURS PRN IVP Nausea & Vomiting 08/28/16 09:15 09/27/16 09:14 08/28/16 09:31 Phenytoin (Dilantin) 250 mg DAILY ORAL 08/28/16 09:00 09/27/16 08:59 08/28/16 08:17 Polyethylene Glycol (Miralax) 17 gm DAILYPRN PRN ORAL Constipation 08/27/16 15:30 09/26/16 15:29 Promethazine HCl/ Codeine (Phenergan with Codeine) 5 ml Q4H PRN ORAL For Cough 08/27/16 15:30 09/26/16 15:29 Temazepam (Restoril) 15 mg HSPRN PRN ORAL Insomnia 08/27/16 15:30 09/03/16 15:29 Trazodone HCl (Desyrel) 100 mg BEDTIME ORAL 08/27/16 21:00 09/26/16 20:59 08/27/16 23:35 Vancomycin HCl 1.25 gm/Dextrose 275 ml @ 183.708 mls/hr Q6HR IVPB 08/28/16 00:00 09/02/16 00:00 08/28/16 11:27 Vancomycin HCl 1 ea 1 ea DAILY PRN MISC Per rx protocol 08/27/16 15:30 09/26/16 15:29 Uri Tesfaye M.D. Aug 28, 2016 13:29
[2016-08-28 16:00] VITALS: BP 131/77
[2016-08-28 17:03] LABS: ABG PCO2 34.8 mmHg (35.0-45.0)
[2016-08-28 17:04] LABS: ABG ALLEN TEST POSITIVE; ABG BASE EXCESS 0.5
--- NOTE | 2016-08-28 18:45 | Cardiology Report ---
APPROVED REPORT EKG Measurement Heart [id number] Sinus tachycardia Otherwise normal ECG
[2016-08-28 20:00] VITALS: BP 109/66
[2016-08-28] MEDS: TraZODone 100mg tab ORAL SCH (20:28)
[2016-08-28] MEDS: Morphine Sulfate 2mg/ml Inj IVP PRN (20:31)
--- NOTE | 2016-08-28 22:16 | Consultation ---
DATE OF CONSULTATION: 08/28/2016 CONSULTING PHYSICIAN: Raul Malloy M.D. ATTENDING PHYSICIAN: Jeremiah Singh D.O. REASON FOR CONSULTATION: Tachycardia. HISTORY OF PRESENT ILLNESS: This is a 40-year-old male brought in to the hospital by paramedics from a convalescent center because of abnormal laboratory studies. He was noted to be septic with fevers up to 102. He was admitted to the hospital for antimicrobials. Concern was raised over his rapid heart rate prompting this consultation. 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 MEDICATIONS: Reviewed. ALLERGIES: Include peanut, cephalexin, aspirin, ketorolac, fish. SOCIAL HISTORY: Active smoker. Positive for drug abuse. No alcohol use. REVIEW OF SYSTEMS: He has had fevers. No loss of vision. No chest pain, although he was hospitalized in the past for chest pain and had negative workup. There is no history of asthma or blood clots in the legs. No history of thyroid disorder. No history of diabetes. PHYSICAL EXAMINATION: GENERAL: Obese male, on Venturi mask, in no acute distress. VITAL SIGNS: Blood pressure 120/85, pulse 118, respiratory rate 18, and afebrile. HEENT: Oropharynx clear. Mucous membranes dry. NECK: Supple and obese. Cannot assess jugular venous pressure. LUNGS: With bilateral wheezing and rales. CARDIAC: Regular rhythm. Rapid rate. Normal S1 and S2, distant with no murmur. EXTREMITIES: With trace dependent edema. ABDOMEN: Nontender. SKIN: Without rash or decubitus. LABORATORY DATA: Sodium 133, potassium 3.7, chloride 91, bicarbonate 22, BUN 16, creatinine 0.6. Albumin 3.5. Lactic acid yesterday was 1.7. ABG, pH 7.45, pCO2 35, pO2 69. White count 25 and hemoglobin 13.9. IMPRESSION: 1. Pneumonia. 2. Sepsis. 3. Hypovolemia and dehydration. 4. Hyponatremia. 5. Hypochloremia. 6. Obesity. 7. Chronic obstructive pulmonary disease exacerbation. PLAN: 1. Saline hydration. 2. Antibiotics per infectious disease cosmetic sales consultant. 3. Inhaled bronchodilators. 4. DVT and stress ulcer prophylaxis. 5. Venous duplex scan to assess for possible source of DVT. 6. No indication for antiarrhythmic therapy at this time. Raul Malloy M.D. DR: Jacque JOB#: [id number] CC:
[2016-08-29] MEDS: Vancomycin 1.25 GM in D5W 275 ML IVPB SCH ×4 (00:06→16:53)
[2016-08-29] MEDS: Morphine Sulfate 2mg/ml Inj IVP PRN ×7 (00:07→23:58)
[2016-08-29 00:33] VITALS: BP 118/69
[2016-08-29 04:00] VITALS: BP 117/71
[2016-08-29 04:55] LABS: BASOPHILS % (AUTO) 0.7 % (0.0-2.0); EOSINOPHILS % (AUTO) 0.5 % (0.0-3.0); LYMPHOCYTES % (AUTO) 11.2 % (20.0-45.0); MEAN CORPUSCULAR HEMOGLOBIN 31.5 PG (27.0-31.0); MEAN CORPUSCULAR VOLUME 93 FL (80-99); MEAN PLATELET VOLUME 7.7 FL (6.5-10.1); MONOCYTES % (AUTO) 5.7 % (1.0-10.0); NEUTROPHILS % (AUTO) 81.8 % (45.0-75.0); PLATELET COUNT 305 K/UL (150-450); RED BLOOD COUNT 4.28 M/UL (4.70-6.10); RED CELL DISTRIBUTION WIDTH 11.8 % (11.6-14.8); WHITE BLOOD COUNT 17.8 K/UL (4.8-10.8)
[2016-08-29 05:17] LABS: MAGNESIUM 1.9 mg/dL (1.7-2.5)
[2016-08-29] MEDS: Aztreonam Inj 2 GM in NS 110 ML IVPB SCH ×3 (05:21→20:39)
[2016-08-29 05:31] LABS: ANION GAP 15 (5-15); CALCIUM 8.8 mg/dL (8.6-10.2); CARBON DIOXIDE 22 mEQ/L (20-30); CHLORIDE 97 mEQ/L (98-107); CREATININE 0.6 mg/dL (0.7-1.2); GLOMERULAR FILTRATION RATE > 60 mL/min (>60); HEMOLYSIS 3; POTASSIUM 3.6 mEQ/L (3.4-4.9); SODIUM 134 mEQ/L (135-145)
[2016-08-29 05:42] LABS: THYROID STIMULATING HORMONE 0.851 uIU/mL (0.300-4.500)
[2016-08-29 08:00] VITALS: BP 134/73
[2016-08-29 08:00] LABS: ABG PCO2 35.1 mmHg (35.0-45.0)
[2016-08-29 08:01] LABS: ABG ALLEN TEST POSITIVE; ABG BASE EXCESS -1.9
--- NOTE | 2016-08-29 08:53 | General Progress Note ---
Assessment/Plan Problem List: (1) Morbid obesity ICD Codes: E66.01 - Morbid (severe) obesity due to excess calories SNOMED: 323766670 (2) Leukocytosis ICD Codes: D72.829 - Elevated white blood cell count, unspecified SNOMED: 663383480, 799361036 (3) Chronic pain ICD Codes: G89.29 - Other chronic pain SNOMED: 02534771 (4) GERD (gastroesophageal reflux disease) ICD Codes: K21.9 - Gastro-esophageal reflux disease without esophagitis SNOMED: 780161581 (5) Sepsis ICD Codes: A41.9 - Sepsis, unspecified organism SNOMED: 18583703 Qualifiers: Qualified Codes: A41.9 - Sepsis, unspecified organism (6) Pneumonia ICD Codes: J18.9 - Pneumonia, unspecified organism SNOMED: 495601671 Qualifiers: Qualified Codes: J18.9 - Pneumonia, unspecified organism (7) COPD (chronic obstructive pulmonary disease) ICD Codes: J44.9 - Chronic obstructive pulmonary disease, unspecified SNOMED: 21107432 Status: stable, progressing, tolerating diet Assessment/Plan o2 pulm tx abx ot pt diet cbc bmp am ltach eval Subjective Allergies: Coded Allergies: KETOROLAC (Verified Allergy, Severe, 08/06/16) ASPIRIN (Verified Allergy, Intermediate, 08/06/16) CEPHALEXIN (Verified Allergy, Mild, 12/13/14) PEANUT (Verified Allergy, Unknown, 11/19/15) Uncoded Allergies: fish (Allergy, Unknown, 08/12/16) All Systems: reviewed and negative except above Subjective o2 nc sleeping Objective Last 24 Hour Vital Signs Date Time Temp Pulse Resp B/P Pulse Ox O2 Delivery O2 Flow Rate FiO2 08/29/16 07:34 95 Venturi Mask 4.0 30 08/29/16 07:33 Venturi Mask 4.0 30 08/29/16 04:00 99.0 92 20 117/71 94 Venturi Mask 30 08/29/16 04:00 93 08/29/16 00:33 99.4 103 20 118/69 94 Venturi Mask 08/29/16 00:00 103 08/28/16 21:59 45 08/28/16 20:00 99.0 101 18 109/66 92 Venturi Mask 08/28/16 19:50 96 Venturi Mask 14.0 55 08/28/16 19:50 Venturi Mask 14.0 55 08/28/16 19:48 100 08/28/16 16:00 97.7 116 20 131/77 93 Venturi Mask 45 08/28/16 16:00 97 08/28/16 16:00 45 08/28/16 12:00 98.1 100 19 133/74 95 Venturi Mask 45 08/28/16 12:00 93 08/28/16 12:00 45 08/28/16 09:19 97.4 Intake and Output 08/28/16 08/29/16 19:00 07:00 Intake Total 643.700 ml 2087.0 ml Output Total 630 ml Balance 643.700 ml 1457.0 ml Intake Oral 720 ml IV Total 643.700 ml 1367.0 ml Output Urine Total 630 ml # Voids 3 Laboratory Tests 08/28/16 15:00: Urine Legionella Antigen [Pending] 08/28/16 16:51: Arterial Blood pH 7.455H, Arterial Blood Partial Pressure CO2 34.8L, Arterial Blood Partial Pressure O2 68.8L, Arterial Blood HCO3 23.9, Arterial Blood Oxygen Saturation 93.6, Arterial Blood Base Excess 0.5, [place] Test Positive 08/28/16 17:15: Vancomycin Level Trough 7.4 08/29/16 04:10: White Blood Count 17.8H, Red Blood Count 4.28L, Hemoglobin 13.5L, Hematocrit 39.8L, Mean Corpuscular Volume 93, Mean Corpuscular Hemoglobin 31.5H, Mean Corpuscular Hemoglobin Concent 34.0, Red Cell Distribution Width 11.8, Platelet Count 305, Mean Platelet Volume 7.7, Neutrophils (%) (Auto) 81.8H, Lymphocytes ( %) (Auto) 11.2L, Monocytes (%) (Auto) 5.7, Eosinophils (%) (Auto) 0.5, Basophils (%) (Auto) 0.7, Sodium Level 134L, Potassium Level 3.6, Chloride Level 97L, Carbon Dioxide Level 22, Anion Gap 15, Blood Urea Nitrogen 12, Creatinine 0.6L, Estimat Glomerular Filtration Rate > 60, Glucose Level 244H, Calcium Level 8.8, Magnesium Level 1.9, Pro-B-Type Natriuretic Peptide 72, Thyroid Stimulating Hormone (TSH) 0.851 7/1/17 07:50: Arterial Blood pH 7.410, Arterial Blood Partial Pressure CO2 35.1, Arterial Blood Partial Pressure O2 69.1L, Arterial Blood HCO3 22.0, Arterial Blood Oxygen Saturation 93.6, Arterial Blood Base Excess -1.9, [place] Test Positive Height (Feet): 5 Height (Inches): 10.00 Weight (Pounds): 305 General Appearance: lethargic EENT: normal ENT inspection Neck: normal alignment Cardiovascular: normal peripheral pulses, normal rate, regular rhythm Respiratory/Chest: chest wall non-tender, lungs clear, normal breath sounds Abdomen: normal bowel sounds, non tender, soft Extremities: normal inspection Edema: no edema noted Arm (L), no edema noted Arm (R), no edema noted Leg (L), no edema noted Leg (R), no edema noted Pedal (L), no edema noted Pedal (R), no edema noted Generalized Neurologic: motor weakness Skin: normal pigmentation, warm/dry MARQUEZ FOY Aug 29, 2016 08:53
[2016-08-29] MEDS: Phenytoin Susp 100mg/4ml ORAL SCH (09:00)
[2016-08-29] MEDS: Depakote ER 500mg tab ORAL SCH ×2 (09:29→20:35)
[2016-08-29] MEDS: Heparin 5000 units/ml inj SUBQ SCH ×2 (09:37→20:38)
[2016-08-29] MEDS: Lisinopril 20mg tab ORAL SCH (09:37)
[2016-08-29] MEDS ORDERED: DiphenhydrAMINE 50mg/ml Inj IVP PRN (11:30)
[2016-08-29 12:00] VITALS: BP 147/89
--- NOTE | 2016-08-29 13:23 | Pulmonology Progress Note ---
Assessment/Plan Assessment/Plan ASSESSMENT sepsis PNA acute hypoxemic respiratory failure requiring BiPAP COPD HTN CATHERINE osteosarcoma seizure disorder morbid obesity PLAN OF CARE FAINA O2 HHN downgraded to 30% VM ABG stable but unable to further downgrade for now venous Duplex BLE CT chest abx, ID follows, blood cx preliminary negative antitussive prn BP management with CCB and CHANCE seizure precautions, continue Depakote and Dilantin DVT, GI prophylaxis case discussed and evaluated by supervising physician Subjective Allergies: Coded Allergies: KETOROLAC (Verified Allergy, Severe, 08/06/16) ASPIRIN (Verified Allergy, Intermediate, 08/06/16) CEPHALEXIN (Verified Allergy, Mild, 12/13/14) FISH DERIVED (Unverified Allergy, Unknown, 08/29/16) PEANUT (Verified Allergy, Unknown, 11/19/15) Uncoded Allergies: fish (Allergy, Unknown, 08/12/16) Subjective leucocytosis trending down, on VM , downgraded to 30% not tolerated BiPAP prior Objective Last 24 Hour Vital Signs Date Time Temp Pulse Resp B/P Pulse Ox O2 Delivery O2 Flow Rate FiO2 08/29/16 12:00 89 08/29/16 12:00 97.9 96 24 147/89 97 Venturi Mask 30 08/29/16 09:37 134/73 08/29/16 09:30 73 134/73 08/29/16 08:00 97.7 73 20 134/73 90 Venturi Mask 40 08/29/16 08:00 76 08/29/16 07:34 95 Venturi Mask 4.0 30 08/29/16 07:33 Venturi Mask 4.0 30 08/29/16 04:00 99.0 92 20 117/71 94 Venturi Mask 30 08/29/16 04:00 93 08/29/16 00:33 99.4 103 20 118/69 94 Venturi Mask 08/29/16 00:00 103 08/28/16 21:59 45 08/28/16 20:00 99.0 101 18 109/66 92 Venturi Mask 08/28/16 19:50 96 Venturi Mask 14.0 55 08/28/16 19:50 Venturi Mask 14.0 55 08/28/16 19:48 100 08/28/16 16:00 97.7 116 20 131/77 93 Venturi Mask 45 08/28/16 16:00 97 08/28/16 16:00 45 Intake and Output 08/28/16 08/29/16 19:00 07:00 Intake Total 643.700 ml 2087.0 ml Output Total 630 ml Balance 643.700 ml 1457.0 ml Intake Oral 720 ml IV Total 643.700 ml 1367.0 ml Output Urine Total 630 ml # Voids 3 Objective General Appearance: no acute distress, awake, alert, morbidly obese male HEENT: normocephalic, atraumatic, anicteric Respiratory/Chest: no accessory muscle use, decreased breath sounds Cardiovascular: normal rate, regular rhythm Abdomen: normal bowel sounds, soft, non tender - obese 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: alert, responsive Musculoskeletal: normal muscle bulk Microbiology Date/Time Source Procedure Growth Status 08/27/16 14:30 Blood Blood Culture - Preliminary NO GROWTH AFTER 24 HOURS Resulted 08/27/16 14:30 Blood Blood Culture - Preliminary NO GROWTH AFTER 24 HOURS Resulted 08/27/16 17:10 Rectum VRE Culture - Final NO VANCOMYCIN RESISTANT ENTEROCOCCUS ... Complete Laboratory Tests 08/28/16 15:00: Urine Legionella Antigen [Pending] 08/28/16 16:51: Arterial Blood pH 7.455H, Arterial Blood Partial Pressure CO2 34.8L, Arterial Blood Partial Pressure O2 68.8L, Arterial Blood HCO3 23.9, Arterial Blood Oxygen Saturation 93.6, Arterial Blood Base Excess 0.5, Tiago Test Positive 08/28/16 17:15: Vancomycin Level Trough 7.4 08/29/16 04:10: White Blood Count 17.8H, Red Blood Count 4.28L, Hemoglobin 13.5L, Hematocrit 39.8L, Mean Corpuscular Volume 93, Mean Corpuscular Hemoglobin 31.5H, Mean Corpuscular Hemoglobin Concent 34.0, Red Cell Distribution Width 11.8, Platelet Count 305, Mean Platelet Volume 7.7, Neutrophils (%) (Auto) 81.8H, Lymphocytes ( %) (Auto) 11.2L, Monocytes (%) (Auto) 5.7, Eosinophils (%) (Auto) 0.5, Basophils (%) (Auto) 0.7, Sodium Level 134L, Potassium Level 3.6, Chloride Level 97L, Carbon Dioxide Level 22, Anion Gap 15, Blood Urea Nitrogen 12, Creatinine 0.6L, Estimat Glomerular Filtration Rate > 60, Glucose Level 244H, Calcium Level 8.8, Magnesium Level 1.9, Pro-B-Type Natriuretic Peptide 72, Thyroid Stimulating Hormone (TSH) 0.851 08/29/16 07:50: Arterial Blood pH 7.410, Arterial Blood Partial Pressure CO2 35.1, Arterial Blood Partial Pressure O2 69.1L, Arterial Blood HCO3 22.0, Arterial Blood Oxygen Saturation 93.6, Arterial Blood Base Excess -1.9, Tiago Test Positive 08/29/16 10:45: Vancomycin Level Trough 16.6H Current Medications Medications (Trade) Dose Ordered Sig/Robert Route PRN Reason Start Time Stop Time Status Last Admin Dose Admin Acetaminophen (Tylenol) 650 mg Q4H PRN ORAL fever 08/27/16 15:30 09/26/16 15:29 08/28/16 08:20 Al Hydroxide/Mg Hydroxide (Mylanta II) 30 ml Q6H PRN ORAL dyspepsia 08/27/16 15:30 09/26/16 15:29 Albuterol/ Ipratropium (DuoNeb 0.5-3(2.5)mg/3ml) 3 ml EVERY 4 HOURS PRN HHN Shortness of Breath 08/27/16 15:30 09/01/16 15:29 Amitriptyline HCl (Elavil) 25 mg BEDTIME ORAL 08/27/16 21:00 09/26/16 20:59 08/28/16 20:28 Amlodipine Besylate (Norvasc) 10 mg DAILY ORAL 08/28/16 09:00 09/27/16 08:59 08/29/16 09:30 Aztreonam/Sodium Chloride (Azactam/Sodium Chloride) 110 ml @ 220 mls/hr Q8HR IVPB 08/27/16 20:00 09/03/16 19:59 08/29/16 05:21 Diphenhydramine HCl (Benadryl) 25 mg Q6H PRN IVP Itching 08/29/16 11:30 09/28/16 11:29 Divalproex Sodium (Depakote ER) 1,000 mg EVERY 12 HOURS ORAL 08/27/16 21:00 09/26/16 20:59 08/29/16 09:29 Heparin Sodium (Porcine) (Heparin 5000 units/ml) 5,000 units EVERY 12 HOURS SUBQ 08/27/16 21:00 09/26/16 20:59 08/29/16 09:37 Lisinopril (Prinivil) 20 mg DAILY ORAL 08/28/16 09:00 09/27/16 08:59 08/29/16 09:37 Morphine Sulfate (Morphine Sulfate) 2 mg Q4H PRN IVP Severe Pain (Pain Scale 7-10) 08/28/16 19:15 09/04/16 19:14 08/29/16 09:30 Nitroglycerin (Ntg) 0.4 mg Q5M PRN SL Prn Chest Pain 08/27/16 15:30 09/26/16 15:29 Ondansetron HCl 4 mg 4 mg EVERY 4 HOURS PRN IVP Nausea & Vomiting 08/28/16 09:15 09/27/16 09:14 08/29/16 09:29 Phenytoin (Dilantin) 250 mg DAILY ORAL 08/28/16 09:00 09/27/16 08:59 08/28/16 08:17 Polyethylene Glycol (Miralax) 17 gm DAILYPRN PRN ORAL Constipation 08/27/16 15:30 09/26/16 15:29 Promethazine HCl/ Codeine (Phenergan with Codeine) 5 ml Q4H PRN ORAL For Cough 08/27/16 15:30 09/26/16 15:29 Sodium Chloride (Sodium Chloride 1000ml bag) 1,000 ml @ 75 mls/hr [id number] IV 08/28/16 18:00 09/27/16 17:59 08/29/16 08:04 Temazepam (Restoril) 15 mg HSPRN PRN ORAL Insomnia 08/27/16 15:30 09/03/16 15:29 08/28/16 20:29 Trazodone HCl (Desyrel) 100 mg BEDTIME ORAL 08/27/16 21:00 09/26/16 20:59 08/28/16 20:28 Vancomycin HCl 1.25 gm/Dextrose 275 ml @ 183.708 mls/hr Q6HR IVPB 08/28/16 00:00 09/02/16 00:00 08/29/16 12:45 Vancomycin HCl 1 ea 1 ea DAILY PRN MISC Per rx protocol 08/27/16 15:30 09/26/16 15:29 W[facility] ([facility])Almita NP Aug 29, 2016 13:23
--- NOTE | 2016-08-29 14:13 | Infectious Diseases Prog Note ---
Assessment/Plan Problems: (1) Pneumonia Assessment & Plan: suspect HCAP, await sputum for culture, continue vancomycin with aztreonam empirically, recommend CT chest with contrast to rule out abscess (2) Sepsis Assessment & Plan: with leukocytosis due to the above, received steroids too , improving , await blood culture and continue vancomycin with aztreonam empirically (3) COPD (chronic obstructive pulmonary disease) Assessment & Plan: with exacerbation, due to the above, continue nebulizer and oxygen, monitor CXR (4) Psychiatric disorder Assessment & Plan: continue psych meds, consult psych Subjective Constitutional: Reports: fatigue HEENT: Reports: congestion Respiratory: Reports: other - wheezing , productive cough Breasts: Reports: no symptoms Cardiovascular: Reports: no symptoms Gastrointestinal/Abdominal: Reports: no symptoms Genitourinary: Reports: no symptoms Neurologic: Reports: no symptoms Psychiatric: Reports: no symptoms Skin: Reports: no symptoms Endocrine: Reports: no symptoms Hematologic: Reports: no symptoms Allergies: Coded Allergies: KETOROLAC (Verified Allergy, Severe, 08/06/16) ASPIRIN (Verified Allergy, Intermediate, 08/06/16) CEPHALEXIN (Verified Allergy, Mild, 12/13/14) FISH DERIVED (Unverified Allergy, Unknown, 08/29/16) PEANUT (Verified Allergy, Unknown, 11/19/15) Uncoded Allergies: fish (Allergy, Unknown, 08/12/16) Objective Vital Signs Last 24 Hour Vital Signs Date Time Temp Pulse Resp B/P Pulse Ox O2 Delivery O2 Flow Rate FiO2 08/29/16 12:00 89 08/29/16 12:00 97.9 96 24 147/89 97 Venturi Mask 30 08/29/16 09:37 134/73 08/29/16 09:30 73 134/73 08/29/16 08:00 97.7 73 20 134/73 90 Venturi Mask 40 08/29/16 08:00 76 08/29/16 07:34 95 Venturi Mask 4.0 30 08/29/16 07:33 Venturi Mask 4.0 30 08/29/16 04:00 99.0 92 20 117/71 94 Venturi Mask 30 08/29/16 04:00 93 08/29/16 00:33 99.4 103 20 118/69 94 Venturi Mask 08/29/16 00:00 103 6/30/17 21:59 45 08/28/16 20:00 99.0 101 18 109/66 92 Venturi Mask 08/28/16 19:50 96 Venturi Mask 14.0 55 08/28/16 19:50 Venturi Mask 14.0 55 08/28/16 19:48 100 08/28/16 16:00 97.7 116 20 131/77 93 Venturi Mask 45 08/28/16 16:00 97 08/28/16 16:00 45 Height (Feet): 5 Height (Inches): 10.00 Weight (Pounds): 305 General Appearance: WD/WN, no acute distress HEENT: normocephalic, atraumatic, anicteric, mucous membranes moist, supple, no JVD Respiratory/Chest: chest wall non-tender, no respiratory distress, no accessory muscle use, decreased breath sounds, expiratory wheezing Cardiovascular: normal peripheral pulses, normal rate, regular rhythm, no gallop/murmur, no JVD Abdomen: normal bowel sounds, soft, non tender, no organomegaly, non distended , no mass, no scars Extremities: no cyanosis, no clubbing Skin: no rash, no lesions Lymphatic: no neck adenopathy, no groin adenopathy Microbiology Date/Time Source Procedure Growth Status 08/27/16 14:30 Blood Blood Culture - Preliminary NO GROWTH AFTER 24 HOURS Resulted 08/27/16 14:30 Blood Blood Culture - Preliminary NO GROWTH AFTER 24 HOURS Resulted 08/27/16 17:10 Rectum VRE Culture - Final NO VANCOMYCIN RESISTANT ENTEROCOCCUS ... Complete Laboratory Tests Test 08/28/16 15:00 08/28/16 16:51 08/28/16 17:15 08/29/16 04:10 Urine Legionella Antigen Pending Arterial Blood pH 7.455 (7.350-7.450) Arterial Blood Partial Pressure CO2 34.8 mmHg (35.0-45.0) L Arterial Blood Partial Pressure O2 68.8 mmHg (75.0-100.0) L Arterial Blood HCO3 23.9 mmol/L (22.0-26.0) Arterial Blood Oxygen Saturation 93.6 % (92.0-98.0) Arterial Blood Base Excess 0.5 Tiago Test Positive Vancomycin Level Trough 7.4 ug/mL (5.0-12.0) White Blood Count 17.8 K/UL (4.8-10.8) H Red Blood Count 4.28 M/UL (4.70-6.10) L Hemoglobin 13.5 G/DL (14.2-18.0) L Hematocrit 39.8 % (42.0-52.0) L Mean Corpuscular Volume 93 FL (80-99) Mean Corpuscular Hemoglobin 31.5 PG (27.0-31.0) H Mean Corpuscular Hemoglobin Concent 34.0 G/DL (32.0-36.0) Red Cell Distribution Width 11.8 % (11.6-14.8) Platelet Count 305 K/UL (150-450) Mean Platelet Volume 7.7 FL (6.5-10.1) Neutrophils (%) (Auto) 81.8 % (45.0-75.0) H Lymphocytes (%) (Auto) 11.2 % (20.0-45.0) L Monocytes (%) (Auto) 5.7 % (1.0-10.0) Eosinophils (%) (Auto) 0.5 % (0.0-3.0) Basophils (%) (Auto) 0.7 % (0.0-2.0) Sodium Level 134 mEQ/L (135-145) L Potassium Level 3.6 mEQ/L (3.4-4.9) Chloride Level 97 mEQ/L (98-107) L Carbon Dioxide Level 22 mEQ/L (20-30) Anion Gap 15 (5-15) Blood Urea Nitrogen 12 mg/dL (7-23) Creatinine 0.6 mg/dL (0.7-1.2) L Estimat Glomerular Filtration Rate > 60 mL/min (>60) Glucose Level 244 mg/dL (74-106) H Calcium Level 8.8 mg/dL (8.6-10.2) Magnesium Level 1.9 mg/dL (1.7-2.5) Pro-B-Type Natriuretic Peptide 72 pg/mL (0-125) Thyroid Stimulating Hormone (TSH) 0.851 uIU/mL (0.300-4.500) Test 08/29/16 07:50 08/29/16 10:45 Arterial Blood pH 7.410 (7.350-7.450) Arterial Blood Partial Pressure CO2 35.1 mmHg (35.0-45.0) Arterial Blood Partial Pressure O2 69.1 mmHg (75.0-100.0) L Arterial Blood HCO3 22.0 mmol/L (22.0-26.0) Arterial Blood Oxygen Saturation 93.6 % (92.0-98.0) Arterial Blood Base Excess -1.9 Tiago Test Positive Vancomycin Level Trough 16.6 ug/mL (5.0-12.0) H Current Medications Medications (Trade) Dose Ordered Sig/Robert Route PRN Reason Start Time Stop Time Status Last Admin Dose Admin Acetaminophen (Tylenol) 650 mg Q4H PRN ORAL fever 08/27/16 15:30 09/26/16 15:29 08/28/16 08:20 Al Hydroxide/Mg Hydroxide (Mylanta II) 30 ml Q6H PRN ORAL dyspepsia 08/27/16 15:30 09/26/16 15:29 Albuterol/ Ipratropium (DuoNeb 0.5-3(2.5)mg/3ml) 3 ml EVERY 4 HOURS PRN HHN Shortness of Breath 08/27/16 15:30 09/01/16 15:29 Amitriptyline HCl (Elavil) 25 mg BEDTIME ORAL 08/27/16 21:00 09/26/16 20:59 08/28/16 20:28 Amlodipine Besylate (Norvasc) 10 mg DAILY ORAL 08/28/16 09:00 09/27/16 08:59 08/29/16 09:30 Aztreonam/Sodium Chloride (Azactam/Sodium Chloride) 110 ml @ 220 mls/hr Q8HR IVPB 08/27/16 20:00 09/03/16 19:59 08/29/16 05:21 Diphenhydramine HCl (Benadryl) 25 mg Q6H PRN IVP Itching 08/29/16 11:30 09/28/16 11:29 08/29/16 13:31 Divalproex Sodium (Depakote ER) 1,000 mg EVERY 12 HOURS ORAL 08/27/16 21:00 09/26/16 20:59 08/29/16 09:29 Heparin Sodium (Porcine) (Heparin 5000 units/ml) 5,000 units EVERY 12 HOURS SUBQ 08/27/16 21:00 09/26/16 20:59 08/29/16 09:37 Lisinopril (Prinivil) 20 mg DAILY ORAL 08/28/16 09:00 09/27/16 08:59 08/29/16 09:37 Morphine Sulfate (Morphine Sulfate) 2 mg Q4H PRN IVP Severe Pain (Pain Scale 7-10) 08/28/16 19:15 09/04/16 19:14 08/29/16 13:31 Nitroglycerin (Ntg) 0.4 mg Q5M PRN SL Prn Chest Pain 08/27/16 15:30 09/26/16 15:29 Ondansetron HCl 4 mg 4 mg EVERY 4 HOURS PRN IVP Nausea & Vomiting 08/28/16 09:15 09/27/16 09:14 08/29/16 13:31 Phenytoin (Dilantin) 250 mg DAILY ORAL 08/28/16 09:00 09/27/16 08:59 08/28/16 08:17 Polyethylene Glycol (Miralax) 17 gm DAILYPRN PRN ORAL Constipation 08/27/16 15:30 09/26/16 15:29 Promethazine HCl/ Codeine (Phenergan with Codeine) 5 ml Q4H PRN ORAL For Cough 08/27/16 15:30 09/26/16 15:29 Sodium Chloride (Sodium Chloride 1000ml bag) 1,000 ml @ 75 mls/hr [id number] IV 08/28/16 18:00 09/27/16 17:59 08/29/16 08:04 Temazepam (Restoril) 15 mg HSPRN PRN ORAL Insomnia 08/27/16 15:30 09/03/16 15:29 08/28/16 20:29 Trazodone HCl (Desyrel) 100 mg BEDTIME ORAL 08/27/16 21:00 09/26/16 20:59 08/28/16 20:28 Vancomycin HCl 1.25 gm/Dextrose 275 ml @ 183.708 mls/hr Q6HR IVPB 08/28/16 00:00 09/02/16 00:00 08/29/16 12:45 Vancomycin HCl 1 ea 1 ea DAILY PRN MISC Per rx protocol 08/27/16 15:30 09/26/16 15:29 Uri Tesfaye M.D. Aug 29, 2016 14:12
[2016-08-29 16:00] VITALS: BP 112/62
[2016-08-29] MEDS: LORazepam 1mg tab ORAL PRN ×2 (18:17→23:58)
--- NOTE | 2016-08-29 19:04 | General Progress Note ---
Assessment/Plan Assessment/Plan Assessment - Respiratory infection / COPD - Leukocytosis - N/V - diarrhea - h/o GERD Recommendations - BID PPI - Check C diff - stool cultures - Abx per ID Subjective Allergies: Coded Allergies: KETOROLAC (Verified Allergy, Severe, 08/06/16) ASPIRIN (Verified Allergy, Intermediate, 08/06/16) CEPHALEXIN (Verified Allergy, Mild, 12/13/14) FISH DERIVED (Unverified Allergy, Unknown, 08/29/16) PEANUT (Verified Allergy, Unknown, 11/19/15) Uncoded Allergies: fish (Allergy, Unknown, 08/12/16) Objective Last 24 Hour Vital Signs Date Time Temp Pulse Resp B/P Pulse Ox O2 Delivery O2 Flow Rate FiO2 08/29/16 18:00 97.7 08/29/16 16:00 94 08/29/16 16:00 97.7 83 22 112/62 93 Nasal Cannula 4.0 08/29/16 14:01 97.9 08/29/16 12:00 89 08/29/16 12:00 97.9 96 24 147/89 97 Venturi Mask 30 08/29/16 09:37 134/73 08/29/16 09:30 73 134/73 08/29/16 08:00 97.7 73 20 134/73 90 Venturi Mask 40 08/29/16 08:00 76 08/29/16 07:34 95 Venturi Mask 4.0 30 08/29/16 07:33 Venturi Mask 4.0 30 08/29/16 04:00 99.0 92 20 117/71 94 Venturi Mask 30 08/29/16 04:00 93 08/29/16 00:33 99.4 103 20 118/69 94 Venturi Mask 08/29/16 00:00 103 08/28/16 21:59 45 08/28/16 20:00 99.0 101 18 109/66 92 Venturi Mask 08/28/16 19:50 96 Venturi Mask 14.0 55 08/28/16 19:50 Venturi Mask 14.0 55 08/28/16 19:48 100 Intake and Output 08/28/16 08/29/16 19:00 07:00 Intake Total 643.700 ml 2087.0 ml Output Total 630 ml Balance 643.700 ml 1457.0 ml Intake Oral 720 ml IV Total 643.700 ml 1367.0 ml Output Urine Total 630 ml # Voids 3 Laboratory Tests 08/29/16 04:10: White Blood Count 17.8H, Red Blood Count 4.28L, Hemoglobin 13.5L, Hematocrit 39.8L, Mean Corpuscular Volume 93, Mean Corpuscular Hemoglobin 31.5H, Mean Corpuscular Hemoglobin Concent 34.0, Red Cell Distribution Width 11.8, Platelet Count 305, Mean Platelet Volume 7.7, Neutrophils (%) (Auto) 81.8H, Lymphocytes ( %) (Auto) 11.2L, Monocytes (%) (Auto) 5.7, Eosinophils (%) (Auto) 0.5, Basophils (%) (Auto) 0.7, Sodium Level 134L, Potassium Level 3.6, Chloride Level 97L, Carbon Dioxide Level 22, Anion Gap 15, Blood Urea Nitrogen 12, Creatinine 0.6L, Estimat Glomerular Filtration Rate > 60, Glucose Level 244H, Calcium Level 8.8, Magnesium Level 1.9, Pro-B-Type Natriuretic Peptide 72, Thyroid Stimulating Hormone (TSH) 0.851 08/29/16 07:50: Arterial Blood pH 7.410, Arterial Blood Partial Pressure CO2 35.1, Arterial Blood Partial Pressure O2 69.1L, Arterial Blood HCO3 22.0, Arterial Blood Oxygen Saturation 93.6, Arterial Blood Base Excess -1.9, Tiago Test Positive 08/29/16 10:45: Vancomycin Level Trough 16.6H Height (Feet): 5 Height (Inches): 10.00 Weight (Pounds): 305 MAYTE BLANCAS Aug 29, 2016 19:04
--- NOTE | 2016-08-29 19:16 | Consultation ---
DATE OF CONSULTATION: 08/27/2016 HISTORY OF PRESENT ILLNESS: The patient has sepsis, hypertension, and seizure disorder. He also has a history of bipolar II disorder psychiatric consultation to evaluate this patient's cognition and to help stabilize his mood. The patient states that he has been having some severe depression and mood lability, currently on Depakote 1000 mg twice a day, trazodone 150 mg, and Elavil 25 mg once a day. He denies suicidal or homicidal thoughts. PAST PSYCHIATRIC HISTORY: Multiple psychiatric admissions, diagnosed with bipolar II. PAST MEDICAL HISTORY: Sepsis, hypertension, seizure disorder, and difficulty with ambulation. ALLERGIES: No known drug allergy. SOCIAL HISTORY: The patient lives in a alf. Financially supported by [employer] and Medicare. SUBSTANCE ABUSE HISTORY: Denies any recent drug and alcohol use. MENTAL STATUS EXAMINATION: The patient is a 40-year-old male with psychomotor retardation. Mood is depressed. Affect is guarded and restricted. Thought process is disorganized and illogical. Denies any suicidal or homicidal thoughts. Insight and judgment is poor. DIAGNOSES: Bipolar II. PLAN: Treat this patient with Elavil 25 mg at bedtime, trazodone 150 mg at bedtime, and Depakote 1000 mg q.12 hours. Chart was reviewed and discussed with staff. Seen and assessed at the bedside. I would like to thank, Dr. Jeremiah Singh, for this interesting consultation. Awa Thomas M.D. DR: NICHELLE JOB#: [id number] CC:
[2016-08-29 20:00] VITALS: BP 130/76
--- NOTE | 2016-08-29 20:16 | Progress Note ---
DATE: 08/28/2016 REASON FOR ADMISSION: Sepsis, hypertension, and seizure disorder. SUBJECTIVE: Continue treatment with Elavil 25 mg at bedtime, trazodone 100 mg at bedtime, and Depakote 1000 mg twice a day to stabilize his mood. The patient was seen and assessed at the bedside at [facility]. Chart was reviewed and discussed with staff. Awa Thomas M.D. DR: IVANIA JOB#: [id number] CC:
[2016-08-29] MEDS: TraZODone 100mg tab ORAL SCH (20:35)
--- NOTE | 2016-08-29 22:46 | Progress Note ---
DATE: 08/29/2016 CARDIOLOGY PROGRESS NOTE SUBJECTIVE: Blood pressure parameters have stabilized. The patient is with sinus rhythm and rare atrial ectopy. He continues on antibiotics and respiratory hygiene. OBJECTIVE: VITAL SIGNS: Blood pressure is 147/89, pulse 96, respiratory rate 24, and no fevers. Now on 30% Venti-Mask. LUNGS: Bilateral breath sounds. Scattered rhonchi. No wheezing. HEART: Regular rhythm and rate. Normal S1 and S2. ABDOMEN: Soft. EXTREMITIES: Trace dependent edema. LABORATORY AND DIAGNOSTIC DATA: White count down to 17.8, hemoglobin 13.5. ABG, pH 7.41, pCO2 35, and pO2 69. Sodium 134, potassium 3.6, bicarbonate 22, BUN 12, and creatinine 0.6. Magnesium 1.9. Pro-natriuretic peptide 72. IMPRESSION: 1. Healthcare-acquired pneumonia. 2. Sepsis. 3. History of lung cancer. 4. Hypovolemia and dehydration, corrected. 5. Hyponatremia, improved. 6. Hypochloremia, improved. 7. Obesity. 8. Hyperventilation with respiratory hygiene and ongoing chronic obstructive pulmonary disease exacerbation, on bronchodilators. PLAN: 1. Await results of venous duplex study. 2. No antiarrhythmic therapy presently indicated. 3. Adjust intravenous fluids. Respiratory hygiene. 4. Bronchodilators. 5. Antimicrobials per Infectious Disease rehab consultant. 6. DVT prophylaxis. Raul Malloy M.D. DR: DELILAH JOB#: [id number] CC:
[2016-08-30] VITALS (7 sets, daily range): BP systolic 122–142; BP diastolic 67–92
--- NOTE | 2016-08-30 00:17 | Progress Note ---
DATE: 08/29/2016 Continue treating this patient with trazodone 100 mg at bedtime, Depakote 1000 mg twice a day, we will titrate up his Elavil to 25 mg at bedtime, and Ativan 2 mg q.6 hours as needed for anxiety. Chart reviewed and discussed with staff. Awa Thomas M.D. DR: NICHELLE JOB#: [id number] CC:
--- NOTE | 2016-08-30 00:32 | Consultation ---
DATE OF CONSULTATION: 08/29/2016 GASTROLOGY CONSULTATION CHIEF COMPLAINT: I was asked to see this patient by Dr. Jeremiah Singh for evaluation of abdominal issues. HISTORY OF PRESENT ILLNESS: The patient is a 40-year-old white male with multiple medical problems, who was admitted to the hospital due to respiratory symptoms. He has cough, fevers, and shortness of breath. He has been treated with antibiotics. The patient also complains of diarrhea, nausea, and vomiting for the past several days. He complains of some left-sided abdominal pain with some episodes of vomiting. There has been no hematochezia or melena. The patient had an endoscopy in October last year showing esophagitis. At that time, he also was admitted with a similar episode of vomiting. PAST MEDICAL HISTORY: Remarkable for history of pyelonephritis, history of common bile duct obstruction, seizure disorder, osteosarcoma of the femur, fatty liver with abnormal liver tests, gastroesophageal reflux disease, hepatitis C, chronic obstructive pulmonary disease, psychiatric disorder, morbid obesity, and chronic pain syndrome. SOCIAL HISTORY: The patient has previously used drugs and smoked in the past, but he does not drink alcohol. He lives in a shelter. FAMILY HISTORY: Noncontributory. REVIEW OF SYSTEMS: Otherwise negative. PHYSICAL EXAMINATION: GENERAL: An obese white man seen in his room. HEENT: Normocephalic and atraumatic. Sclerae anicteric. Oropharynx clear. NECK: Supple. CHEST: Reveals scattered rhonchi. CARDIOVASCULAR: Revealed a regular rate. ABDOMEN: Soft and obese with left-sided abdominal tenderness to palpation. There is no guarding or rebound. EXTREMITIES: Revealed no edema. LABORATORY DATA: Noted. ASSESSMENT: This patient presents with respiratory infection with fevers and leukocytosis with cough and shortness of breath. He has been treated with antibiotics, but he also has nausea, vomiting, diarrhea, and abdominal pain. The patient should have stool cultures checked as well as Clostridium difficile. He should also be placed on twice daily proton pump inhibitor especially given his previous history of gastroesophageal reflux disease. I will monitor his GERD complaints and examine his symptoms. Should his symptoms persist then further evaluation with repeat endoscopy or imaging studies can be considered. RECOMMENDATIONS: Per above discussion and per orders written in the chart. Thank you for asking me to participate in the care of this patient. Iris Leo M.D. DR: KELSEY JOB#: [id number] CC:
[2016-08-30] MEDS: Morphine Sulfate 2mg/ml Inj IVP PRN (04:14)
[2016-08-30] MEDS: Aztreonam Inj 2 GM in NS 110 ML IVPB SCH ×4 (05:55→21:11)
[2016-08-30] MEDS: Vancomycin 1.25 GM in D5W 275 ML IVPB SCH ×5 (05:56→18:43)
[2016-08-30] MEDS ORDERED: Nitroglycerin Subl 0.4mg tab (Bottle Of 25) SL PRN (07:00)
[2016-08-30] MEDS ORDERED: Promethazine/Codeine 5ml UD ORAL PRN (07:30)
[2016-08-30] MEDS ORDERED: Morphine Sulfate 2mg/ml Inj IVP PRN (08:00)
[2016-08-30] MEDS: Phenytoin Susp 100mg/4ml ORAL SCH (08:40)
[2016-08-30] MEDS: Lisinopril 20mg tab ORAL SCH (08:41)
[2016-08-30] MEDS: Depakote ER 500mg tab ORAL SCH ×2 (08:42→20:53)
[2016-08-30] MEDS: Heparin 5000 units/ml inj SUBQ SCH ×2 (08:44→20:57)
[2016-08-30] MEDS ORDERED: DuoNeb 0.5-3(2.5)mg/3ml neb HHN PRN (09:00)
[2016-08-30] MEDS: LORazepam 1mg tab ORAL PRN ×2 (09:06→23:57)
--- NOTE | 2016-08-30 09:19 | Diagnostic Imaging Report ---
Indication: Chest pain Technique: Continuous helical transaxial imaging of the chest was obtained from the thoracic inlet to the upper abdomen after intravenous nonionic contrast administration. Coronal 2-D reformats were also obtained. Total Dose length Product (DLP): [address] Dose Index Volume (CTDIvol): 29 mGy Comparison: none Findings: Patchy groundglass infiltrates are present in the left lung. No such disease is identified within the right lung with only minimal opacification at the peripheral right lung base. Pulmonary vascularity is within normal limits. The heart may be slightly enlarged. No pleural effusion seen. Liver is low in attenuation consistent with fatty infiltration. Calcified granulomata noted in the right hilum, spleen and right lung. Small nodes are seen in the mediastinum. Cholecystectomy noted. Impression: Asymmetric is left pulmonary infiltrates largely groundglass in appearance. Findings suspected of representing inflammatory disease or pneumonia. Please correlate clinically. Old granulomatous disease Cardiomegaly Fatty liver Status post cholecystectomy. The CT scanner at [facility] is accredited by the [employer] and the scans are performed using dose optimization techniques as appropriate to a performed exam including Automatic Exposure control.
[2016-08-30] MEDS ORDERED: Mylanta II UD 30ml ORAL PRN (09:30)
--- NOTE | 2016-08-30 09:41 | General Progress Note ---
Assessment/Plan Problem List: (1) Morbid obesity ICD Codes: E66.01 - Morbid (severe) obesity due to excess calories SNOMED: 343847793 (2) Leukocytosis ICD Codes: D72.829 - Elevated white blood cell count, unspecified SNOMED: 613993051, 746260731 (3) Chronic pain ICD Codes: G89.29 - Other chronic pain SNOMED: 23348493 (4) GERD (gastroesophageal reflux disease) ICD Codes: K21.9 - Gastro-esophageal reflux disease without esophagitis SNOMED: 801408367 (5) Sepsis ICD Codes: A41.9 - Sepsis, unspecified organism SNOMED: 74632228 Qualifiers: Qualified Codes: A41.9 - Sepsis, unspecified organism (6) Pneumonia ICD Codes: J18.9 - Pneumonia, unspecified organism SNOMED: 062434580 Qualifiers: Qualified Codes: J18.9 - Pneumonia, unspecified organism (7) COPD (chronic obstructive pulmonary disease) ICD Codes: J44.9 - Chronic obstructive pulmonary disease, unspecified SNOMED: 55053193 Status: stable, progressing, tolerating diet Assessment/Plan o2 pulm tx abx ot pt diet cbc bmp am ltach eval Subjective Constitutional: Reports: weakness Allergies: Coded Allergies: KETOROLAC (Verified Allergy, Severe, 08/06/16) ASPIRIN (Verified Allergy, Intermediate, 08/06/16) CEPHALEXIN (Verified Allergy, Mild, 12/13/14) FISH DERIVED (Unverified Allergy, Unknown, 08/29/16) PEANUT (Verified Allergy, Unknown, 11/19/15) Uncoded Allergies: fish (Allergy, Unknown, 08/12/16) All Systems: reviewed and negative except above Subjective o2 nc sleeping Objective Last 24 Hour Vital Signs Date Time Temp Pulse Resp B/P Pulse Ox O2 Delivery O2 Flow Rate FiO2 08/30/16 08:41 125/67 08/30/16 08:40 83 125/67 08/30/16 08:03 83 20 Nasal Cannula 4.0 08/30/16 07:59 97.7 97 20 125/67 94 Nasal Cannula 3.0 08/30/16 07:56 91 Nasal Cannula 4.0 08/30/16 07:54 Nasal Cannula 4.0 08/30/16 04:00 98.4 97 20 142/78 95 Nasal Cannula 4.0 08/30/16 04:00 93 08/30/16 00:53 98.7 85 20 137/70 97 Mechanical Ventilator 4.0 08/30/16 00:00 99 08/29/16 22:59 Room Air 08/29/16 22:58 93 Room Air 08/29/16 20:00 103 08/29/16 20:00 99.0 89 18 130/76 99 Nasal Cannula 4.0 08/29/16 18:00 97.7 08/29/16 16:00 94 08/29/16 16:00 97.7 83 22 112/62 93 Nasal Cannula 4.0 08/29/16 14:01 97.9 08/29/16 12:00 89 08/29/16 12:00 97.9 96 24 147/89 97 Venturi Mask 30 Intake and Output 08/29/16 08/30/16 19:00 07:00 Intake Total 391.3 ml Balance 391.3 ml IV Total 391.3 ml # Voids 3 2 # Bowel Movements 4 2 Laboratory Tests 08/29/16 10:45: Vancomycin Level Trough 16.6H Height (Feet): 5 Height (Inches): 10.00 Weight (Pounds): 305 General Appearance: alert EENT: normal ENT inspection Neck: normal alignment Cardiovascular: normal peripheral pulses, normal rate, regular rhythm Respiratory/Chest: chest wall non-tender, lungs clear, normal breath sounds Abdomen: normal bowel sounds, non tender, soft Extremities: normal inspection Edema: no edema noted Arm (L), no edema noted Arm (R), no edema noted Leg (L), no edema noted Leg (R), no edema noted Pedal (L), no edema noted Pedal (R), no edema noted Generalized Neurologic: responsive, motor weakness Skin: normal pigmentation MARQUEZ FOY Aug 30, 2016 09:41
[2016-08-30] MEDS ORDERED: DiphenhydrAMINE 50mg/ml Inj IVP PRN (11:30)
--- NOTE | 2016-08-30 11:46 | General Progress Note ---
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 Will start Gabapentin also. Will run X-Ray of his b/l Femurs now. Subjective Constitutional: Denies: chills, diaphoresis, fever, malaise, no symptoms, other , weakness HEENT: Denies: blurred vision, double vision, ear discharge, ear pain, eye pain , mouth pain, mouth swelling, no symptoms, nose congestion, nose pain, other, tearing, throat pain, throat swelling Cardiovascular: Denies: chest pain, edema, irregular heart rate, lightheadedness, no symptoms, other, palpitations, syncope Respiratory: Denies: SOB at rest, SOB with excertion, cough, no symptoms, orthopnea, other, shortness of breath, sputum, stridor, wheezing Gastrointestinal/Abdominal: Denies: abdomen distended, abdominal pain, black stools, blood in stool, constipated, diarrhea, difficulty swallowing, nausea, no symptoms, other, poor appetite, poor fluid intake, rectal bleeding, tarry stools, vomiting Genitourinary: Denies: burning, discharge, flank pain, frequency, hematuria, incontinence, no symptoms, other, pain, urgency 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: Denies: anxiety, depressed, emotional problems, headache, no symptoms, numbness, other, paresthesia, pre-existing deficit, seizure, tingling, tremors, weakness Endocrine: Denies: excessive sweating, flushing, increased hunger, increased thirst, increased urine, intolerance to cold, intolerance to heat, no symptoms, other, unexplained weight gain, unexplained weight loss Hematologic/Lymphatic: Denies: anemia, easy bleeding, easy bruising, no symptoms, other Allergies: Coded Allergies: KETOROLAC (Verified Allergy, Severe, 08/06/16) ASPIRIN (Verified Allergy, Intermediate, 08/06/16) CEPHALEXIN (Verified Allergy, Mild, 12/13/14) FISH DERIVED (Unverified Allergy, Unknown, 08/29/16) PEANUT (Verified Allergy, Unknown, 11/19/15) Uncoded Allergies: fish (Allergy, Unknown, 08/12/16) Subjective Pt c/o severe right leg pain. 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 He claims that despite chemotherapy his condition is uncontrolled. He reports that he was on fentanyl patch and Morphine 30 mg in [place]. He is on Fentanyl patch and Morphine 2 mg IV and reports severe pain. There is no imaging or report supporting his claim. Objective Last 24 Hour Vital Signs Date Time Temp Pulse Resp B/P Pulse Ox O2 Delivery O2 Flow Rate FiO2 08/30/16 11:35 97.5 89 20 129/76 97 Room Air 08/30/16 08:41 125/67 08/30/16 08:40 83 125/67 08/30/16 08:03 83 20 Nasal Cannula 4.0 08/30/16 08:00 99 08/30/16 07:59 97.7 97 20 125/67 94 Nasal Cannula 3.0 08/30/16 07:56 91 Nasal Cannula 4.0 08/30/16 07:54 Nasal Cannula 4.0 08/30/16 04:00 98.4 97 20 142/78 95 Nasal Cannula 4.0 08/30/16 04:00 93 08/30/16 00:53 98.7 85 20 137/70 97 Mechanical Ventilator 4.0 08/30/16 00:00 99 08/29/16 22:59 Room Air 08/29/16 22:58 93 Room Air 08/29/16 20:00 103 08/29/16 20:00 99.0 89 18 130/76 99 Nasal Cannula 4.0 08/29/16 18:00 97.7 08/29/16 16:00 94 08/29/16 16:00 97.7 83 22 112/62 93 Nasal Cannula 4.0 08/29/16 14:01 97.9 08/29/16 12:00 89 08/29/16 12:00 97.9 96 24 147/89 97 Venturi Mask 30 Intake and Output 08/29/16 08/30/16 19:00 07:00 Intake Total 391.3 ml Balance 391.3 ml IV Total 391.3 ml # Voids 3 2 # Bowel Movements 4 2 Height (Feet): 5 Height (Inches): 10.00 Weight (Pounds): 305 General Appearance: WD/WN, alert EENT: PERRL/EOMI Neck: non-tender, supple Respiratory/Chest: lungs clear Abdomen: normal bowel sounds, non tender, soft Edema: no edema noted Arm (L), no edema noted Arm (R), no edema noted Leg (L), no edema noted Leg (R), no edema noted Pedal (L), no edema noted Pedal (R) 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
--- NOTE | 2016-08-30 11:47 | Pulmonology Progress Note ---
Assessment/Plan Assessment/Plan ASSESSMENT sepsis PNA acute hypoxemic respiratory failure requiring BiPAP COPD HTN CATHERINE osteosarcoma seizure disorder morbid obesity PLAN OF CARE tele O2 HHN downgraded toO2 via NC ABG stable but unable to further downgrade for now venous Duplex BLE CT chest with left pulmonary infiltrates largely groundglass in appearance. Findings suspected of representing inflammatory disease or pneumonia. abx, ID follows, blood cx preliminary negative antitussive prn BP management with CCB and CHANCE seizure precautions, continue Depakote and Dilantin DVT, GI prophylaxis clinically improving dc plan for am case discussed and evaluated by supervising physician Subjective Allergies: Coded Allergies: KETOROLAC (Verified Allergy, Severe, 08/06/16) ASPIRIN (Verified Allergy, Intermediate, 08/06/16) CEPHALEXIN (Verified Allergy, Mild, 12/13/14) FISH DERIVED (Unverified Allergy, Unknown, 08/29/16) PEANUT (Verified Allergy, Unknown, 11/19/15) Uncoded Allergies: fish (Allergy, Unknown, 08/12/16) Subjective leucocytosis trending down, still significant, afebrile was able to be weaned to oxygen via NC on VM transferred to tele no signs of respiratory distress, clinically improving Objective Last 24 Hour Vital Signs Date Time Temp Pulse Resp B/P Pulse Ox O2 Delivery O2 Flow Rate FiO2 08/30/16 11:35 97.5 89 20 129/76 97 Room Air 08/30/16 08:41 125/67 08/30/16 08:40 83 125/67 08/30/16 08:03 83 20 Nasal Cannula 4.0 08/30/16 08:00 99 08/30/16 07:59 97.7 97 20 125/67 94 Nasal Cannula 3.0 08/30/16 07:56 91 Nasal Cannula 4.0 08/30/16 07:54 Nasal Cannula 4.0 08/30/16 04:00 98.4 97 20 142/78 95 Nasal Cannula 4.0 08/30/16 04:00 93 08/30/16 00:53 98.7 85 20 137/70 97 Mechanical Ventilator 4.0 08/30/16 00:00 99 08/29/16 22:59 Room Air 08/29/16 22:58 93 Room Air 08/29/16 20:00 103 08/29/16 20:00 99.0 89 18 130/76 99 Nasal Cannula 4.0 08/29/16 18:00 97.7 08/29/16 16:00 94 08/29/16 16:00 97.7 83 22 112/62 93 Nasal Cannula 4.0 08/29/16 14:01 97.9 08/29/16 12:00 89 08/29/16 12:00 97.9 96 24 147/89 97 Venturi Mask 30 Intake and Output 08/29/16 08/30/16 19:00 07:00 Intake Total 391.3 ml Balance 391.3 ml IV Total 391.3 ml # Voids 3 2 # Bowel Movements 4 2 Objective General Appearance: no acute distress, awake, alert, morbidly obese male HEENT: normocephalic, atraumatic, anicteric, o2 via NC Respiratory/Chest: no accessory muscle use, decreased breath sounds Cardiovascular: normal rate, regular rhythm Abdomen: normal bowel sounds, soft, non tender - obese 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: alert, responsive Musculoskeletal: normal muscle bulk Microbiology Date/Time Source Procedure Growth Status 08/28/16 10:30 Blood Blood Culture - Preliminary NO GROWTH AFTER 24 HOURS Resulted 08/27/16 14:30 Blood Blood Culture - Preliminary NO GROWTH AFTER 48 HOURS Resulted 08/27/16 14:30 Blood Blood Culture - Preliminary NO GROWTH AFTER 48 HOURS Resulted 08/27/16 17:10 Rectum VRE Culture - Final NO VANCOMYCIN RESISTANT ENTEROCOCCUS ... Complete Current Medications Medications (Trade) Dose Ordered Sig/Robert Route PRN Reason Start Time Stop Time Status Last Admin Dose Admin Acetaminophen (Tylenol) 650 mg Q4H PRN ORAL fever 08/30/16 07:30 09/29/16 07:29 Al Hydroxide/Mg Hydroxide (Mylanta II) 30 ml Q6H PRN ORAL dyspepsia 08/30/16 09:30 09/29/16 09:29 Albuterol/ Ipratropium (DuoNeb 0.5-3(2.5)mg/3ml) 3 ml EVERY 4 HOURS PRN HHN Shortness of Breath 08/30/16 09:00 09/04/16 08:59 Amitriptyline HCl (Elavil) 50 mg BEDTIME ORAL 08/30/16 21:00 09/29/16 20:59 Amlodipine Besylate (Norvasc) 10 mg DAILY ORAL 08/30/16 09:00 09/29/16 08:59 08/30/16 08:40 Aztreonam 2 gm/ Sodium Chloride 110 ml @ 220 mls/hr Q8HR IVPB 08/30/16 14:00 09/03/16 19:59 Diphenhydramine HCl (Benadryl) 25 mg Q6H PRN IVP Itching 08/30/16 11:30 09/29/16 11:29 Divalproex Sodium (Depakote ER) 1,000 mg EVERY 12 HOURS ORAL 08/30/16 09:00 09/29/16 08:59 08/30/16 08:42 Fentanyl (Duragesic) 1 patch EVERY 72 HOURS TDERMAL 09/01/16 20:00 09/08/16 19:59 Heparin Sodium (Porcine) (Heparin 5000 units/ml) 5,000 units EVERY 12 HOURS SUBQ 08/30/16 09:00 09/29/16 08:59 08/30/16 08:44 Lisinopril (Prinivil) 20 mg DAILY ORAL 08/30/16 09:00 09/29/16 08:59 08/30/16 08:41 Lorazepam (Ativan) 2 mg Q6H PRN ORAL For Anxiety 08/30/16 11:00 09/06/16 10:59 08/30/16 09:06 Morphine Sulfate (Morphine Sulfate) 2 mg Q3H PRN IVP Severe Pain (Pain Scale 7-10) 08/30/16 08:00 09/06/16 07:59 08/30/16 08:43 Nitroglycerin (Ntg) 0.4 mg Q5M PRN SL Prn Chest Pain 08/30/16 07:00 09/29/16 06:59 Ondansetron HCl (Zofran) 4 mg EVERY 4 HOURS PRN IVP Nausea & Vomiting 08/30/16 09:00 09/29/16 08:59 08/30/16 08:42 Pantoprazole (Protonix) 40 mg EVERY 12 HOURS ORAL 08/30/16 09:00 09/29/16 08:59 08/30/16 08:41 Phenytoin (Dilantin) 250 mg DAILY ORAL 08/30/16 09:00 09/29/16 08:59 08/30/16 08:40 Polyethylene Glycol (Miralax) 17 gm DAILYPRN PRN ORAL Constipation 08/30/16 15:30 09/29/16 15:29 Promethazine HCl/ Codeine (Phenergan with Codeine) 5 ml Q4H PRN ORAL For Cough 08/30/16 07:30 09/29/16 07:29 Sodium Chloride 1,000 ml @ 50 mls/hr Q20H IV 08/30/16 07:00 09/29/16 06:59 Temazepam (Restoril) 15 mg HSPRN PRN ORAL Insomnia 08/30/16 15:30 09/06/16 15:29 Trazodone HCl (Desyrel) 100 mg BEDTIME ORAL 08/30/16 21:00 09/29/16 20:59 Vancomycin HCl (Vanco rx to dose) 1 ea DAILY PRN MISC Per rx protocol 08/30/16 09:00 09/29/16 08:59 Vancomycin HCl/ Dextrose (Vancomycin/D5W) 275 ml @ 183.708 mls/hr Q6HR IVPB 08/30/16 12:00 09/04/16 11:59 Wai (Gaby)Almita NP Aug 30, 2016 11:47
--- NOTE | 2016-08-30 14:16 | General Progress Note ---
Assessment/Plan Assessment/Plan Assessment - Respiratory infection / COPD - Leukocytosis - N/V - improved - diarrhea - improved - h/o GERD Recommendations - BID PPI - Check C diff - stool cultures - Abx per ID - po as tolerarte - d/c planning Subjective Allergies: Coded Allergies: KETOROLAC (Verified Allergy, Severe, 08/06/16) ASPIRIN (Verified Allergy, Intermediate, 08/06/16) CEPHALEXIN (Verified Allergy, Mild, 12/13/14) FISH DERIVED (Unverified Allergy, Unknown, 08/29/16) PEANUT (Verified Allergy, Unknown, 11/19/15) Uncoded Allergies: fish (Allergy, Unknown, 08/12/16) Subjective Feels much better resolved N/V resolved diarrhea tolerating PO Objective Last 24 Hour Vital Signs Date Time Temp Pulse Resp B/P Pulse Ox O2 Delivery O2 Flow Rate FiO2 08/30/16 11:35 97.5 89 20 129/76 97 Room Air 08/30/16 08:41 125/67 08/30/16 08:40 83 125/67 08/30/16 08:03 83 20 Nasal Cannula 4.0 08/30/16 08:00 99 08/30/16 07:59 97.7 97 20 125/67 94 Nasal Cannula 3.0 08/30/16 07:56 91 Nasal Cannula 4.0 08/30/16 07:54 Nasal Cannula 4.0 08/30/16 04:00 98.4 97 20 142/78 95 Nasal Cannula 4.0 08/30/16 04:00 93 08/30/16 00:53 98.7 85 20 137/70 97 Mechanical Ventilator 4.0 08/30/16 00:00 99 08/29/16 22:59 Room Air 08/29/16 22:58 93 Room Air 08/29/16 20:00 103 08/29/16 20:00 99.0 89 18 130/76 99 Nasal Cannula 4.0 08/29/16 18:00 97.7 08/29/16 16:00 94 08/29/16 16:00 97.7 83 22 112/62 93 Nasal Cannula 4.0 Intake and Output 08/29/16 08/30/16 19:00 07:00 Intake Total 391.3 ml Balance 391.3 ml IV Total 391.3 ml # Voids 3 2 # Bowel Movements 4 2 Height (Feet): 5 Height (Inches): 10.00 Weight (Pounds): 305 Objective Obese WM NCAT supple CTA RRR Supple soft obese NT ND no edema nonfocal MAYTE BLANCAS Aug 30, 2016 14:16
--- NOTE | 2016-08-30 14:46 | Progress Note ---
DATE: 08/30/2016 CARDIOLOGY PROGRESS NOTE SUBJECTIVE: The patient has had respiratory distress. Monitored rhythm sinus with no ectopy. Blood pressure control is adequate. OBJECTIVE: VITAL SIGNS: Blood pressure 129/76, pulse 89, and respiratory rate 20. Afebrile. LUNGS: Coarse breath sounds. Few rhonchi. HEART: Regular rhythm and rate. Normal S1 and S2. ABDOMEN: Soft. EXTREMITIES: Trace edema. LABORATORY AND DIAGNOSTIC DATA: No new labs. Venous duplex negative for DVT. IMPRESSION: 1. No signs of acute congestive heart failure. 2. Hypertension, controlled. 3. Healthcare acquired pneumonia with sepsis, resolving. 4. History of lung cancer. Awaiting CAT scan of the chest. 5. Hypovolemia, hyponatremia, hypochloremia, and dehydration, improved. 6. Chronic obstructive pulmonary disease exacerbation, resolving. PLAN: Taper off IV fluids. Nutritional support with protein supplement. Bronchodilators. Antimicrobials per Infectious Disease party plan sales consultant. DVT prophylaxis. No additional cardiovascular intervention presently planned. Agree with discharge planning. Raul Malloy M.D. DR: ASIM JOB#: [id number] CC:
[2016-08-30] MEDS ORDERED: Miralax 17gm pkt ORAL PRN (15:30)
[2016-08-30 17:57] LABS: BASOPHILS % (AUTO) 1.4 % (0.0-2.0); EOSINOPHILS % (AUTO) 2.4 % (0.0-3.0); LYMPHOCYTES % (AUTO) 19.7 % (20.0-45.0); MEAN CORPUSCULAR HEMOGLOBIN 31.6 PG (27.0-31.0); MEAN CORPUSCULAR HGB CONC 34.9 G/DL (32.0-36.0); MEAN CORPUSCULAR VOLUME 91 FL (80-99); MEAN PLATELET VOLUME 7.3 FL (6.5-10.1); NEUTROPHILS % (AUTO) 70.5 % (45.0-75.0); PLATELET COUNT 307 K/UL (150-450); RED BLOOD COUNT 4.36 M/UL (4.70-6.10); RED CELL DISTRIBUTION WIDTH 11.3 % (11.6-14.8); WHITE BLOOD COUNT 14.3 K/UL (4.8-10.8)
[2016-08-30 18:21] LABS: ANION GAP 20 (5-15); CALCIUM 8.8 mg/dL (8.6-10.2); CARBON DIOXIDE 20 mEQ/L (20-30); CHLORIDE 91 mEQ/L (98-107); CREATININE 0.5 mg/dL (0.7-1.2); GLOMERULAR FILTRATION RATE > 60 mL/min (>60); HEMOLYSIS 3; POTASSIUM 3.2 mEQ/L (3.4-4.9); SODIUM 131 mEQ/L (135-145)
[2016-08-30] MEDS ORDERED: TraZODone 100mg tab ORAL SCH (21:00)
[2016-08-31 04:04] VITALS: BP 130/79
--- NOTE | 2016-08-31 04:16 | Progress Note ---
DATE: 08/30/2016 SUBJECTIVE: The patient is a 40-year-old male patient, who has sepsis, hypertension, and seizure disorder. He has no history of schizoaffective or bipolar II disorder. ____ continue treatment with Depakote 1000 mg q.12 h., trazodone 100 mg at bedtime, and Elavil 25 mg at bedtime. Provide him with support therapy and behavioral management. Chart reviewed and discussed with staff. Seen and assessed at bedside. Awa Thomas M.D. DR: QUINCY JOB#: [id number] CC:
[2016-08-31] MEDS: Aztreonam Inj 2 GM in NS 110 ML IVPB SCH (06:49)
[2016-08-31 07:10] LABS: MAGNESIUM 1.9 mg/dL (1.7-2.5)
[2016-08-31 07:13] LABS: BASOPHILS % (AUTO) 1.2 % (0.0-2.0); EOSINOPHILS % (AUTO) 3.1 % (0.0-3.0); LYMPHOCYTES % (AUTO) 17.7 % (20.0-45.0); MEAN CORPUSCULAR HEMOGLOBIN 32.2 PG (27.0-31.0); MEAN CORPUSCULAR VOLUME 92 FL (80-99); MEAN PLATELET VOLUME 7.5 FL (6.5-10.1); MONOCYTES % (AUTO) 7.2 % (1.0-10.0); NEUTROPHILS % (AUTO) 70.8 % (45.0-75.0); PLATELET COUNT 282 K/UL (150-450); RED BLOOD COUNT 4.06 M/UL (4.70-6.10); RED CELL DISTRIBUTION WIDTH 11.3 % (11.6-14.8); WHITE BLOOD COUNT 11.8 K/UL (4.8-10.8)
[2016-08-31 07:14] LABS: ANION GAP 18 (5-15); CALCIUM 8.5 mg/dL (8.6-10.2); CARBON DIOXIDE 21 mEQ/L (20-30); CHLORIDE 96 mEQ/L (98-107); CREATININE 0.6 mg/dL (0.7-1.2); GLOMERULAR FILTRATION RATE > 60 mL/min (>60); HEMOLYSIS 3; POTASSIUM 3.4 mEQ/L (3.4-4.9); SODIUM 135 mEQ/L (135-145)
--- NOTE | 2016-08-31 07:40 | General Progress Note ---
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 Will f/u on x-ray result to determine the diagnosis. Subjective Constitutional: Reports: malaise, Denies: chills, diaphoresis, fever, no symptoms, other, weakness HEENT: Denies: blurred vision, double vision, ear discharge, ear pain, eye pain , mouth pain, mouth swelling, no symptoms, nose congestion, nose pain, other, tearing, throat pain, throat swelling Cardiovascular: Denies: chest pain, edema, irregular heart rate, lightheadedness, no symptoms, other, palpitations, syncope Respiratory: Denies: SOB at rest, SOB with excertion, cough, no symptoms, orthopnea, other, shortness of breath, sputum, stridor, wheezing Gastrointestinal/Abdominal: Denies: abdomen distended, abdominal pain, black stools, blood in stool, constipated, diarrhea, difficulty swallowing, nausea, no symptoms, other, poor appetite, poor fluid intake, rectal bleeding, tarry stools, vomiting 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: Reports: anxiety, depressed, emotional problems, weakness Hematologic/Lymphatic: Denies: anemia, easy bleeding, easy bruising, no symptoms, other Allergies: Coded Allergies: KETOROLAC (Verified Allergy, Severe, 08/06/16) ASPIRIN (Verified Allergy, Intermediate, 08/06/16) CEPHALEXIN (Verified Allergy, Mild, 12/13/14) FISH DERIVED (Unverified Allergy, Unknown, 08/29/16) PEANUT (Verified Allergy, Unknown, 11/19/15) Uncoded Allergies: fish (Allergy, Unknown, 08/12/16) Subjective Pain is controlled on current regimen of Fentanyl patch, Gabapentin and Dilaudid. He has taken 4 doses of Dilaudid yesterday and 2 doses since midnight. X-Ray report still is pending. Objective Last 24 Hour Vital Signs Date Time Temp Pulse Resp B/P Pulse Ox O2 Delivery O2 Flow Rate FiO2 08/31/16 04:04 98.3 87 21 130/79 97 Nasal Cannula 3.0 08/31/16 04:00 98 08/31/16 00:00 90 08/30/16 23:58 98.4 99 19 135/92 96 Nasal Cannula 3.0 08/30/16 20:29 98.6 83 20 122/71 92 Room Air 08/30/16 20:00 90 08/30/16 19:30 Nasal Cannula 3.0 32 08/30/16 19:30 80 20 Nasal Cannula 3.0 32 08/30/16 19:30 92 Nasal Cannula 3.0 32 08/30/16 16:00 92 08/30/16 15:47 97.2 90 20 126/78 93 Room Air 08/30/16 12:00 100 08/30/16 11:35 97.5 89 20 129/76 97 Room Air 08/30/16 08:41 125/67 08/30/16 08:40 83 125/67 08/30/16 08:03 83 20 Nasal Cannula 4.0 08/30/16 08:00 99 08/30/16 07:59 97.7 97 20 125/67 94 Nasal Cannula 3.0 08/30/16 07:56 91 Nasal Cannula 4.0 08/30/16 07:54 Nasal Cannula 4.0 Intake and Output 08/30/16 08/31/16 19:00 07:00 Intake Total 1315.000 ml Balance 1315.000 ml Intake Oral 820 ml IV Total 495.000 ml # Voids 1 1 Laboratory Tests 08/30/16 17:45: White Blood Count 14.3H, Red Blood Count 4.36L, Hemoglobin 13.8L, Hematocrit 39.5L, Mean Corpuscular Volume 91, Mean Corpuscular Hemoglobin 31.6H, Mean Corpuscular Hemoglobin Concent 34.9, Red Cell Distribution Width 11.3L, Platelet Count 307, Mean Platelet Volume 7.3, Neutrophils (%) (Auto) 70.5, Lymphocytes (%) (Auto) 19.7L, Monocytes (%) (Auto) 6.0, Eosinophils (%) (Auto) 2.4, Basophils (%) (Auto) 1.4, Sodium Level 131L, Potassium Level 3.2L, Chloride Level 91L, Carbon Dioxide Level 20, Anion Gap 20H, Blood Urea Nitrogen 11, Creatinine 0.5L, Estimat Glomerular Filtration Rate > 60, Glucose Level 265H , Calcium Level 8.8 08/31/16 04:50: White Blood Count 11.8H, Red Blood Count 4.06L, Hemoglobin 13.1L, Hematocrit 37.4L, Mean Corpuscular Volume 92, Mean Corpuscular Hemoglobin 32.2H, Mean Corpuscular Hemoglobin Concent 35.0, Red Cell Distribution Width 11.3L, Platelet Count 282, Mean Platelet Volume 7.5, Neutrophils (%) (Auto) 70.8, Lymphocytes (%) (Auto) 17.7L, Monocytes (%) (Auto) 7.2, Eosinophils (%) (Auto) 3.1H, Basophils (%) (Auto) 1.2, Sodium Level 135, Potassium Level 3.4, Chloride Level 96L, Carbon Dioxide Level 21, Anion Gap 18H, Blood Urea Nitrogen 9, Creatinine 0.6L, Estimat Glomerular Filtration Rate > 60, Glucose Level 331H, Calcium Level 8.5L, Magnesium Level 1.9, Pro-B-Type Natriuretic Peptide [Pending ] Height (Feet): 5 Height (Inches): 10.00 Weight (Pounds): 305 General Appearance: WD/WN, alert EENT: PERRL/EOMI Neck: non-tender, supple Cardiovascular: normal rate, regular rhythm Respiratory/Chest: lungs clear Abdomen: non tender, soft Extremities: non-tender Edema: no edema noted Arm (L), no edema noted Arm (R), no edema noted Leg (L), no edema noted Leg (R), no edema noted Pedal (L), no edema noted Pedal (R) 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
[2016-08-31] MEDS: Vancomycin 1.25 GM in D5W 275 ML IVPB SCH ×3 (07:50)
[2016-08-31 08:09] VITALS: BP 130/66
[2016-08-31] MEDS: Phenytoin Susp 100mg/4ml ORAL SCH ×2 (09:00→10:00)
--- NOTE | 2016-08-31 09:10 | Diagnostic Imaging Report ---
Indications: Left thigh pain, history of sarcoma of the femur Technique: Two views left thigh Findings: Comparison: None. No fracture, dislocation, lytic destruction, periosteal reaction, surrounding soft tissue swelling, or other acute changes are demonstrated. No deformity, alignment abnormality, arthritic change, soft tissue calcification, or other chronic changes are demonstrated. IMPRESSION: Negative left thigh series.
--- NOTE | 2016-08-31 09:31 | Diagnostic Imaging Report ---
Indications: Right thigh pain, history of sarcoma the femur Technique: Two views right thigh Findings: Comparison: None. No fracture, dislocation, lytic destruction, periosteal reaction, surrounding soft tissue swelling, or other acute changes are demonstrated. Elongated, stippled sclerotic focus is present in the distal femoral metadiaphyseal junction. No deformity, alignment abnormality, arthritic change, soft tissue calcification, or other chronic changes are demonstrated. 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
[2016-08-31 09:42] LABS: OTHERS PATHOLOGIST COMMENT
[2016-08-31] MEDS: Lisinopril 20mg tab ORAL SCH (10:00)
[2016-08-31] MEDS: Depakote ER 500mg tab ORAL SCH (10:01)
[2016-08-31] MEDS: Heparin 5000 units/ml inj SUBQ SCH (10:04)
[2016-08-31 11:24] VITALS: BP 123/64
--- NOTE | 2016-08-31 12:13 | General Progress Note ---
Assessment/Plan Problem List: (1) Morbid obesity ICD Codes: E66.01 - Morbid (severe) obesity due to excess calories SNOMED: 398861694 (2) Leukocytosis ICD Codes: D72.829 - Elevated white blood cell count, unspecified SNOMED: 144239049, 077958238 (3) Chronic pain ICD Codes: G89.29 - Other chronic pain SNOMED: 49527866 (4) GERD (gastroesophageal reflux disease) ICD Codes: K21.9 - Gastro-esophageal reflux disease without esophagitis SNOMED: 370363855 (5) Sepsis ICD Codes: A41.9 - Sepsis, unspecified organism SNOMED: 46908018 Qualifiers: Qualified Codes: A41.9 - Sepsis, unspecified organism (6) Pneumonia ICD Codes: J18.9 - Pneumonia, unspecified organism SNOMED: 007327855 Qualifiers: Qualified Codes: J18.9 - Pneumonia, unspecified organism (7) COPD (chronic obstructive pulmonary disease) ICD Codes: J44.9 - Chronic obstructive pulmonary disease, unspecified SNOMED: 51425194 Status: stable, progressing, tolerating diet Assessment/Plan o2 pulm tx abx ot pt diet cbc bmp am ltach eval, snf if clear by id and pulm Subjective Constitutional: Reports: weakness Allergies: Coded Allergies: KETOROLAC (Verified Allergy, Severe, 08/06/16) ASPIRIN (Verified Allergy, Intermediate, 08/06/16) CEPHALEXIN (Verified Allergy, Mild, 12/13/14) FISH DERIVED (Unverified Allergy, Unknown, 08/29/16) PEANUT (Verified Allergy, Unknown, 11/19/15) Uncoded Allergies: fish (Allergy, Unknown, 08/12/16) All Systems: reviewed and negative except above Subjective calm in bed Objective Last 24 Hour Vital Signs Date Time Temp Pulse Resp B/P Pulse Ox O2 Delivery O2 Flow Rate FiO2 08/31/16 11:24 97.2 81 20 123/64 98 Room Air 08/31/16 10:01 94 130/66 08/31/16 10:00 130/66 08/31/16 08:09 96.3 94 20 130/66 95 Room Air 08/31/16 07:29 80 20 Nasal Cannula 3.0 32 08/31/16 07:29 Nasal Cannula 3.0 32 08/31/16 07:29 95 Nasal Cannula 3.0 32 08/31/16 04:04 98.3 87 21 130/79 97 Nasal Cannula 3.0 08/31/16 04:00 98 08/31/16 00:00 90 08/30/16 23:58 98.4 99 19 135/92 96 Nasal Cannula 3.0 08/30/16 20:29 98.6 83 20 122/71 92 Room Air 08/30/16 20:00 90 08/30/16 19:30 Nasal Cannula 3.0 32 08/30/16 19:30 80 20 Nasal Cannula 3.0 32 08/30/16 19:30 92 Nasal Cannula 3.0 32 08/30/16 16:00 92 08/30/16 15:47 97.2 90 20 126/78 93 Room Air Intake and Output 08/30/16 08/31/16 19:00 07:00 Intake Total 1315.000 ml Balance 1315.000 ml Intake Oral 820 ml IV Total 495.000 ml # Voids 1 1 Laboratory Tests 08/30/16 17:45: White Blood Count 14.3H, Red Blood Count 4.36L, Hemoglobin 13.8L, Hematocrit 39.5L, Mean Corpuscular Volume 91, Mean Corpuscular Hemoglobin 31.6H, Mean Corpuscular Hemoglobin Concent 34.9, Red Cell Distribution Width 11.3L, Platelet Count 307, Mean Platelet Volume 7.3, Neutrophils (%) (Auto) 70.5, Lymphocytes (%) (Auto) 19.7L, Monocytes (%) (Auto) 6.0, Eosinophils (%) (Auto) 2.4, Basophils (%) (Auto) 1.4, Sodium Level 131L, Potassium Level 3.2L, Chloride Level 91L, Carbon Dioxide Level 20, Anion Gap 20H, Blood Urea Nitrogen 11, Creatinine 0.5L, Estimat Glomerular Filtration Rate > 60, Glucose Level 265H , Calcium Level 8.8 08/31/16 04:50: White Blood Count 11.8H, Red Blood Count 4.06L, Hemoglobin 13.1L, Hematocrit 37.4L, Mean Corpuscular Volume 92, Mean Corpuscular Hemoglobin 32.2H, Mean Corpuscular Hemoglobin Concent 35.0, Red Cell Distribution Width 11.3L, Platelet Count 282, Mean Platelet Volume 7.5, Neutrophils (%) (Auto) 70.8, Lymphocytes (%) (Auto) 17.7L, Monocytes (%) (Auto) 7.2, Eosinophils (%) (Auto) 3.1H, Basophils (%) (Auto) 1.2, Sodium Level 135, Potassium Level 3.4, Chloride Level 96L, Carbon Dioxide Level 21, Anion Gap 18H, Blood Urea Nitrogen 9, Creatinine 0.6L, Estimat Glomerular Filtration Rate > 60, Glucose Level 331H, Calcium Level 8.5L, Magnesium Level 1.9, Pro-B-Type Natriuretic Peptide 25 Height (Feet): 5 Height (Inches): 10.00 Weight (Pounds): 305 General Appearance: alert EENT: normal ENT inspection Neck: normal alignment Cardiovascular: normal peripheral pulses, normal rate, regular rhythm Respiratory/Chest: chest wall non-tender, lungs clear, normal breath sounds Abdomen: normal bowel sounds, non tender, soft Extremities: normal inspection Edema: no edema noted Arm (L), no edema noted Arm (R), no edema noted Leg (L), no edema noted Leg (R), no edema noted Pedal (L), no edema noted Pedal (R), no edema noted Generalized Neurologic: responsive, motor weakness Skin: normal pigmentation, warm/dry MARQUEZ FOY Aug 31, 2016 12:13
--- NOTE | 2016-08-31 12:58 | Pulmonology Progress Note ---
Assessment/Plan Problems: (1) Sepsis (2) Leukocytosis (3) COPD (chronic obstructive pulmonary disease) (4) Osteosarcoma of femur (5) Chronic pain (6) GERD (gastroesophageal reflux disease) (7) Morbid obesity Assessment/Plan improving symptomatic treatment all notes and All medications reviewed. ok to dc Subjective ROS Limited/Unobtainable: No Constitutional: Reports: no symptoms HEENT: Repors: no symptoms Respiratory: Reports: no symptoms Allergies: Coded Allergies: KETOROLAC (Verified Allergy, Severe, 08/06/16) ASPIRIN (Verified Allergy, Intermediate, 08/06/16) CEPHALEXIN (Verified Allergy, Mild, 12/13/14) FISH DERIVED (Unverified Allergy, Unknown, 08/29/16) PEANUT (Verified Allergy, Unknown, 11/19/15) Uncoded Allergies: fish (Allergy, Unknown, 08/12/16) Objective Last 24 Hour Vital Signs Date Time Temp Pulse Resp B/P Pulse Ox O2 Delivery O2 Flow Rate FiO2 08/31/16 11:24 97.2 81 20 123/64 98 Room Air 08/31/16 10:01 94 130/66 08/31/16 10:00 130/66 08/31/16 08:09 96.3 94 20 130/66 95 Room Air 08/31/16 07:29 80 20 Nasal Cannula 3.0 32 08/31/16 07:29 Nasal Cannula 3.0 32 08/31/16 07:29 95 Nasal Cannula 3.0 32 08/31/16 04:04 98.3 87 21 130/79 97 Nasal Cannula 3.0 08/31/16 04:00 98 08/31/16 00:00 90 08/30/16 23:58 98.4 99 19 135/92 96 Nasal Cannula 3.0 08/30/16 20:29 98.6 83 20 122/71 92 Room Air 08/30/16 20:00 90 08/30/16 19:30 Nasal Cannula 3.0 32 08/30/16 19:30 80 20 Nasal Cannula 3.0 32 08/30/16 19:30 92 Nasal Cannula 3.0 32 08/30/16 16:00 92 08/30/16 15:47 97.2 90 20 126/78 93 Room Air Intake and Output 08/30/16 08/31/16 19:00 07:00 Intake Total 1315.000 ml Balance 1315.000 ml Intake Oral 820 ml IV Total 495.000 ml # Voids 1 1 General Appearance: WD/WN HEENT: normocephalic, atraumatic Respiratory/Chest: chest wall non-tender, lungs clear Cardiovascular: normal peripheral pulses, normal rate Abdomen: normal bowel sounds, soft, non tender Genitourinary: normal external genitalia Extremities: no clubbing Skin: no lesions 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, no motor/sensory deficits Lymphatic: no neck adenopathy Microbiology Date/Time Source Procedure Growth Status 08/29/16 15:00 Stool Stool Culture - Preliminary Resulted Laboratory Tests 08/30/16 17:45: White Blood Count 14.3H, Red Blood Count 4.36L, Hemoglobin 13.8L, Hematocrit 39.5L, Mean Corpuscular Volume 91, Mean Corpuscular Hemoglobin 31.6H, Mean Corpuscular Hemoglobin Concent 34.9, Red Cell Distribution Width 11.3L, Platelet Count 307, Mean Platelet Volume 7.3, Neutrophils (%) (Auto) 70.5, Lymphocytes (%) (Auto) 19.7L, Monocytes (%) (Auto) 6.0, Eosinophils (%) (Auto) 2.4, Basophils (%) (Auto) 1.4, Sodium Level 131L, Potassium Level 3.2L, Chloride Level 91L, Carbon Dioxide Level 20, Anion Gap 20H, Blood Urea Nitrogen 11, Creatinine 0.5L, Estimat Glomerular Filtration Rate > 60, Glucose Level 265H , Calcium Level 8.8 08/31/16 04:50: White Blood Count 11.8H, Red Blood Count 4.06L, Hemoglobin 13.1L, Hematocrit 37.4L, Mean Corpuscular Volume 92, Mean Corpuscular Hemoglobin 32.2H, Mean Corpuscular Hemoglobin Concent 35.0, Red Cell Distribution Width 11.3L, Platelet Count 282, Mean Platelet Volume 7.5, Neutrophils (%) (Auto) 70.8, Lymphocytes (%) (Auto) 17.7L, Monocytes (%) (Auto) 7.2, Eosinophils (%) (Auto) 3.1H, Basophils (%) (Auto) 1.2, Sodium Level 135, Potassium Level 3.4, Chloride Level 96L, Carbon Dioxide Level 21, Anion Gap 18H, Blood Urea Nitrogen 9, Creatinine 0.6L, Estimat Glomerular Filtration Rate > 60, Glucose Level 331H, Calcium Level 8.5L, Magnesium Level 1.9, Pro-B-Type Natriuretic Peptide 25 Current Medications Medications (Trade) Dose Ordered Sig/Robert Route PRN Reason Start Time Stop Time Status Last Admin Dose Admin Acetaminophen (Tylenol) 650 mg Q4H PRN ORAL fever 08/30/16 07:30 09/29/16 07:29 Al Hydroxide/Mg Hydroxide (Mylanta II) 30 ml Q6H PRN ORAL dyspepsia 08/30/16 09:30 09/29/16 09:29 Albuterol/ Ipratropium (DuoNeb 0.5-3(2.5)mg/3ml) 3 ml EVERY 4 HOURS PRN HHN Shortness of Breath 08/30/16 09:00 09/04/16 08:59 Amitriptyline HCl (Elavil) 50 mg BEDTIME ORAL 08/30/16 21:00 09/29/16 20:59 08/30/16 20:53 Amlodipine Besylate (Norvasc) 10 mg DAILY ORAL 08/30/16 09:00 09/29/16 08:59 08/31/16 10:01 Aztreonam 2 gm/ Sodium Chloride 110 ml @ 220 mls/hr Q8HR IVPB 08/30/16 14:00 09/03/16 19:59 08/31/16 06:49 Diphenhydramine HCl (Benadryl) 25 mg Q6H PRN IVP Itching 08/30/16 11:30 09/29/16 11:29 Divalproex Sodium (Depakote ER) 1,000 mg EVERY 12 HOURS ORAL 08/30/16 09:00 09/29/16 08:59 08/31/16 10:01 Fentanyl (Duragesic) 1 patch EVERY 72 HOURS TDERMAL 09/01/16 20:00 09/08/16 19:59 Gabapentin (Neurontin) 300 mg THREE TIMES A DAY ORAL 08/30/16 13:00 09/29/16 12:59 08/31/16 10:01 Heparin Sodium (Porcine) (Heparin 5000 units/ml) 5,000 units EVERY 12 HOURS SUBQ 08/30/16 09:00 09/29/16 08:59 08/31/16 10:04 Hydromorphone HCl (Dilaudid) 2 mg Q3H PRN IVP severe pain 08/31/16 12:00 09/07/16 11:59 08/31/16 12:16 Lisinopril (Prinivil) 20 mg DAILY ORAL 08/30/16 09:00 09/29/16 08:59 08/31/16 10:00 Lorazepam (Ativan) 2 mg Q6H PRN ORAL For Anxiety 08/30/16 11:00 09/06/16 10:59 08/30/16 23:57 Nitroglycerin (Ntg) 0.4 mg Q5M PRN SL Prn Chest Pain 08/30/16 07:00 09/29/16 06:59 Ondansetron HCl (Zofran) 4 mg EVERY 4 HOURS PRN IVP Nausea & Vomiting 08/30/16 09:00 09/29/16 08:59 08/31/16 05:00 Pantoprazole (Protonix) 40 mg EVERY 12 HOURS ORAL 08/30/16 09:00 09/29/16 08:59 08/31/16 10:01 Phenytoin (Dilantin) 250 mg DAILY ORAL 08/30/16 09:00 09/29/16 08:59 08/30/16 08:40 Polyethylene Glycol (Miralax) 17 gm DAILYPRN PRN ORAL Constipation 08/30/16 15:30 09/29/16 15:29 Promethazine HCl/ Codeine (Phenergan with Codeine) 5 ml Q4H PRN ORAL For Cough 08/30/16 07:30 09/29/16 07:29 Temazepam (Restoril) 15 mg HSPRN PRN ORAL Insomnia 08/30/16 15:30 09/06/16 15:29 08/30/16 21:07 Trazodone HCl (Desyrel) 100 mg BEDTIME ORAL 08/30/16 21:00 09/29/16 20:59 08/30/16 20:52 Vancomycin HCl (Vanco rx to dose) 1 ea DAILY PRN MISC Per rx protocol 08/30/16 09:00 09/29/16 08:59 Vancomycin HCl/ Dextrose (Vancomycin/D5W) 275 ml @ 183.708 mls/hr Q6HR IVPB 08/30/16 12:00 09/04/16 11:59 08/31/16 07:50 LAUREN OCHOA Aug 31, 2016 12:58
--- NOTE | 2016-08-31 13:04 | GI Progress Note ---
Assessment/Plan Problems: (1) Morbid obesity ICD Codes: E66.01 - Morbid (severe) obesity due to excess calories SNOMED: 158487286 (2) Hepatitis C ICD Codes: B19.20 - Unspecified viral hepatitis C without hepatic coma SNOMED: 70195006 (3) Fatty liver ICD Codes: K76.0 - Fatty (change of) liver, not elsewhere classified SNOMED: 233679520 (4) Elevated LFTs ICD Codes: R79.89 - Other specified abnormal findings of blood chemistry SNOMED: 661028348 (5) N&V (nausea and vomiting) ICD Codes: R11.2 - Nausea with vomiting, unspecified SNOMED: 39418558 Status: stable Status Narrative Discussed with Dr. Fraser. Assessment/Plan Assessment - Respiratory infection / COPD - Leukocytosis - N/V - improved - diarrhea - improved - h/o GERD Recommendations - ok for DC per GI standpoint - BID PPI - Check C diff - stool cultures - Abx per ID - po as tolerated - outpatient Hep C treatment Subjective Subjective diarrhea resolved abdominal pain resolved Objective Last 24 Hour Vital Signs Date Time Temp Pulse Resp B/P Pulse Ox O2 Delivery O2 Flow Rate FiO2 08/31/16 11:24 97.2 81 20 123/64 98 Room Air 08/31/16 10:01 94 130/66 08/31/16 10:00 130/66 08/31/16 08:09 96.3 94 20 130/66 95 Room Air 08/31/16 07:29 80 20 Nasal Cannula 3.0 32 08/31/16 07:29 Nasal Cannula 3.0 32 08/31/16 07:29 95 Nasal Cannula 3.0 32 08/31/16 04:04 98.3 87 21 130/79 97 Nasal Cannula 3.0 08/31/16 04:00 98 08/31/16 00:00 90 08/30/16 23:58 98.4 99 19 135/92 96 Nasal Cannula 3.0 08/30/16 20:29 98.6 83 20 122/71 92 Room Air 08/30/16 20:00 90 08/30/16 19:30 Nasal Cannula 3.0 32 08/30/16 19:30 80 20 Nasal Cannula 3.0 32 08/30/16 19:30 92 Nasal Cannula 3.0 32 08/30/16 16:00 92 08/30/16 15:47 97.2 90 20 126/78 93 Room Air Intake and Output 08/30/16 08/31/16 19:00 07:00 Intake Total 1315.000 ml Balance 1315.000 ml Intake Oral 820 ml IV Total 495.000 ml # Voids 1 1 Laboratory Tests Test 08/30/16 17:45 08/31/16 04:50 White Blood Count 14.3 K/UL (4.8-10.8) H 11.8 K/UL (4.8-10.8) H Red Blood Count 4.36 M/UL (4.70-6.10) L 4.06 M/UL (4.70-6.10) L Hemoglobin 13.8 G/DL (14.2-18.0) L 13.1 G/DL (14.2-18.0) L Hematocrit 39.5 % (42.0-52.0) L 37.4 % (42.0-52.0) L Mean Corpuscular Volume 91 FL (80-99) 92 FL (80-99) Mean Corpuscular Hemoglobin 31.6 PG (27.0-31.0) H 32.2 PG (27.0-31.0) H Mean Corpuscular Hemoglobin Concent 34.9 G/DL (32.0-36.0) 35.0 G/DL (32.0-36.0) Red Cell Distribution Width 11.3 % (11.6-14.8) L 11.3 % (11.6-14.8) L Platelet Count 307 K/UL (150-450) 282 K/UL (150-450) Mean Platelet Volume 7.3 FL (6.5-10.1) 7.5 FL (6.5-10.1) Neutrophils (%) (Auto) 70.5 % (45.0-75.0) 70.8 % (45.0-75.0) Lymphocytes (%) (Auto) 19.7 % (20.0-45.0) L 17.7 % (20.0-45.0) L Monocytes (%) (Auto) 6.0 % (1.0-10.0) 7.2 % (1.0-10.0) Eosinophils (%) (Auto) 2.4 % (0.0-3.0) 3.1 % (0.0-3.0) H Basophils (%) (Auto) 1.4 % (0.0-2.0) 1.2 % (0.0-2.0) Sodium Level 131 mEQ/L (135-145) L 135 mEQ/L (135-145) Potassium Level 3.2 mEQ/L (3.4-4.9) L 3.4 mEQ/L (3.4-4.9) Chloride Level 91 mEQ/L (98-107) L 96 mEQ/L (98-107) L Carbon Dioxide Level 20 mEQ/L (20-30) 21 mEQ/L (20-30) Anion Gap 20 (5-15) H 18 (5-15) H Blood Urea Nitrogen 11 mg/dL (7-23) 9 mg/dL (7-23) Creatinine 0.5 mg/dL (0.7-1.2) L 0.6 mg/dL (0.7-1.2) L Estimat Glomerular Filtration Rate > 60 mL/min (>60) > 60 mL/min (>60) Glucose Level 265 mg/dL (74-106) H 331 mg/dL (74-106) H Calcium Level 8.8 mg/dL (8.6-10.2) 8.5 mg/dL (8.6-10.2) L Magnesium Level 1.9 mg/dL (1.7-2.5) Pro-B-Type Natriuretic Peptide 25 pg/mL (0-125) Height (Feet): 5 Height (Inches): 10.00 Weight (Pounds): 305 General Appearance: no apparent distress, alert, obese Cardiovascular: normal rate Respiratory/Chest: normal breath sounds, no respiratory distress Abdominal Exam: normal bowel sounds, non tender Extremities: non-tender Laura Gray N.PAj Aug 31, 2016 13:04
[2016-08-31] MEDS ORDERED: Tubing IV Secondary IV ONE (13:24)
--- NOTE | 2016-08-31 13:41 | Diagnostic Imaging Report ---
APPROVED REPORT CPT Code: 43777 Present Symptoms Lower Extremity Pain: Bilateral Shortness of breath BILATERAL: Imaging reveals a patent deep venous system bilaterally. There is no evidence of thrombus within the femoral, popliteal or tibial segments. The greater saphenous veins are also within normal limits. Doppler indicates normal spontaneous flow within these segments.
--- NOTE | 2016-09-01 21:45 | Progress Note ---
DATE: 08/31/2016 CARDIOLOGY PROGRESS NOTE Late entry for 08/31/2016 SUBJECTIVE: The patient was seen and examined. The case was reviewed with primary care physician. The patient is afebrile. OBJECTIVE: VITAL SIGNS: Blood pressure 123/64, pulse 81, respiratory rate 20. LUNGS: Good breath sounds. No wheezing. HEART: Regular rhythm and rate. Normal S1 and S2. ABDOMEN: Soft. EXTREMITIES: No edema. LABORATORY DIAGNOSTIC DATA: White count 11.8, hemoglobin 13.1. Potassium 3.4. Sodium 135, bicarb 21, BUN 9, creatinine 0.6. Magnesium 1.9. Pro-natriuretic peptide 25. IMPRESSION: 1. Rehydrated. 2. Hypokalemia and hyponatremia corrected. 3. Hypertensive heart disease with controlled blood pressure. 4. Chronic obstructive pulmonary disease with no active bronchospasm. PLAN: 1. Intravenous fluids discontinued. 2. Continue respiratory hygiene and bronchodilators long-term. 3. Stable for discharge on current cardiovascular regimen. Raul Malloy M.D. DR: Nori JOB#: [id number] CC:
--- NOTE | 2016-09-02 19:40 | Discharge Summary ---
Discharge Summary Hospital Course Date of Admission Aug 27, 2016 at 15:15 Date of Discharge Aug 31, 2016 at 13:25 Admitting Diagnosis SEPSIS HPI Yemi Stuart is a 40 year old male who was admitted on Aug 27, 2016 at 15:15 for Sepsis Hospital Course [id number] Discharge Discharge Disposition Patient was discharged to SNF/Subacute Facility(03) Discharge Diagnoses: Courtney Lunsford NP Sep 02, 2016 19:40
--- NOTE | 2016-09-03 00:30 | Discharge Summary 2 SIG ---
DATE OF ADMISSION: 08/27/2016 DATE OF DISCHARGE: 08/31/2016 CONSULTANTS: 1. Raul Malloy M.D. 2. Vitaliy Fraser M.D. 3. Ministerio Joe M.D. 4. Ignacio Muhammad M.D. 5. Awa Thomas M.D. 6. Uri Tesfaye M.D. BRIEF HOSPITAL COURSE: The patient is a 40-year-old gentleman from long term, who presented with abnormal laboratories and leukocytosis and had fever at the long term. Evaluation at ED, showed WBC of 29.6. Chest x-ray showed left-sided pneumonia and congestive heart failure. The patient was desaturating to 89% oxygen saturation on nasal cannula and was placed on BiPAP. He was started on empiric antibiotics and was admitted to [facility] for sepsis and pneumonia. He was seen by Dr. Joe for Pulmonary service and was given nebulizer treatments and antitussives. CT of the chest showed left pulmonary infiltrates largely ground-glass in appearance suspect inflammatory disease or pneumonia. Venous duplex of the lower extremity was negative for DVT. He was eventually tapered off of BiPAP and was placed on nasal cannula and was downgraded to telemetry. The patient was given vancomycin and aztreonam as he has allergy to cephalosporin. He was followed by the psychiatric service and was diagnosed with bipolar II disorder. He was given Elavil 25 mg q.h.s., trazodone 150 mg q.h.s., and Depakote 1000 mg b.i.d. with Ativan 2 mg p.r.n. anxiety. He complained of pain. The patient had osteosarcoma of the femur. Initially, he was given IV morphine. He waa followed by pain management doctor was changed to Dilaudid IV. X-rays of the femur was negative. The patient has hepatitis C. Recommended outpatient treatment. He was followed by Cardiology service for evaluation of tachycardia. There was no antiarrhythmic therapy indicated and the patient was rehydrated. Hypokalemia and hyponatremia were corrected. He was eventually discharged back to SNF. FINAL DIAGNOSES: 1. Sepsis. 2. Pneumonia suspect healthcare-associated pneumonia. 3. Chronic obstructive pulmonary disease. 4. Osteosarcoma of the femur. 5. Chronic pain. 6. Gastroesophageal reflux disease. 7. Morbid obesity. 8. Hypokalemia. 9. Hyponatremia. 10. Hypertensive heart disease. 11. Hepatitis C. 12. Fatty liver. 13. Bipolar disorder type 2. 14. Acute hypoxemic respiratory failure requiring BiPAP resolved. 15. Seizure disorder. 16. Obstructive sleep apnea. 17. Hypertension. Jeremiah Singh D.O. I have been assigned to dictate discharge summary on this account and I was not involved in the patient's management. Courtney Lunsford N.P. DR: RADHA JOB#: [id number] CC: [facility]CI[facility]
== END 2016-08-31 13:25 | DRG 871 ==
LOC: EDBD 13:58 → EDUNIT# 13:58 → EDBEDREQ 14:19 → EMR 14:35 → 2W 15:15 → EDBEDREQ 15:35 → EDBEDREQSVC 15:35 → EDBEDREQ 20:49 → 2W 22:48 → 2E 08-30 07:24
PROC: 5A09357 Assistance with Respiratory Ventilation, Less than 24 Consecutive Hours, Continuous Positive Airway Pressure (ICD-10-PCS; principal; 2016-08-27)
DX: A41.9 Sepsis, unspecified organism (principal); J18.9 Pneumonia, unspecified organism; J96.01 Acute respiratory failure with hypoxia; G93.40 Encephalopathy, unspecified; C40.20 Malignant neoplasm of long bones of unspecified lower limb; E87.1 Hypo-osmolality and hyponatremia; Z68.41 Body mass index [BMI] 40.0-44.9, adult; F31.81 Bipolar II disorder; J44.1 Chronic obstructive pulmonary disease with (acute) exacerbation; E66.01 Morbid (severe) obesity due to excess calories; K21.9 Gastro-esophageal reflux disease without esophagitis; E87.6 Hypokalemia; I11.9 Hypertensive heart disease without heart failure; B19.20 Unspecified viral hepatitis C without hepatic coma; K76.0 Fatty (change of) liver, not elsewhere classified; G40.909 Epilepsy, unspecified, not intractable, without status epilepticus; G47.33 Obstructive sleep apnea (adult) (pediatric); Z88.1 Allergy status to other antibiotic agents; Z88.6 Allergy status to analgesic agent; F17.200 Nicotine dependence, unspecified, uncomplicated; G89.29 Other chronic pain
CPT/HCPCS: 36415; 36600; 71010; 71260; 80048; 80053; 80069; 80202; 81003; 82164; 82550; 82553; 82803; 82962; 83605; 83735; 83880; 84443; 84484; 85007; 85025; 87040; 87045; 87081; 93005; 93306; 93970; 94640; 94660; 94664; 94760; J2405; J8499; S0077

== ENCOUNTER 2016-12-07 11:26 | Inpatient (IN) | payer MEDICARE, OTHER ==
[~2016-12-07] VITALS: Ht 177.8 cm; Wt 149.7 kg
[2016-12-07 11:40] VITALS: BP 119/70
[2016-12-07 11:58] LABS: BASOPHILS % (AUTO) 0.9 % (0.0-2.0); EOSINOPHILS % (AUTO) 0.7 % (0.0-3.0); LYMPHOCYTES % (AUTO) 19.7 % (20.0-45.0); MEAN CORPUSCULAR HEMOGLOBIN 30.3 PG (27.0-31.0); MEAN CORPUSCULAR HGB CONC 33.8 G/DL (32.0-36.0); MEAN CORPUSCULAR VOLUME 90 FL (80-99); MONOCYTES % (AUTO) 7.1 % (1.0-10.0); NEUTROPHILS % (AUTO) 71.6 % (45.0-75.0); PLATELET COUNT 365 K/UL (150-450); RED BLOOD COUNT 5.46 M/UL (4.70-6.10); RED CELL DISTRIBUTION WIDTH 12.1 % (11.6-14.8); WHITE BLOOD COUNT 11.3 K/UL (4.8-10.8)
[2016-12-07] MEDS ORDERED: cefTRIAXone 1 GM in NS 55 ML IVPB ONE (12:00)
[2016-12-07] MEDS ORDERED: Ipratropium 0.02% Inh Soln 2.5ml UD HHN ONE (12:00)
[2016-12-07] MEDS ORDERED: Morphine Sulfate 4mg/ml Inj IVP ONE ×2 (12:00→13:00)
[2016-12-07] MEDS ORDERED: Albuterol ud Inhalation HHN ONE (12:00)
--- NOTE | 2016-12-07 12:22 | Diagnostic Imaging Report ---
Indication: Dyspnea Comparison: 08/31/16 A single view chest radiograph was obtained. Findings: Bones are osteopenic. Heart is normal in size. Lungs are clear. Impression: No acute disease
[2016-12-07 12:53] LABS: ALANINE AMINOTRANSFERASE 68 U/L (12-78); ASPARTATE AMINO TRANSFERASE 48 U/L (15-37); CALCIUM 10.8 MG/DL (8.5-10.1); CARBON DIOXIDE 20 MMOL/L (21-32); CHLORIDE 98 MMOL/L (98-107); CKMB 2.3 NG/ML (0.0-3.6); GLOMERULAR FILTRATION RATE > 60 mL/min (>60); POTASSIUM 3.8 MMOL/L (3.5-5.1); SODIUM 134 MMOL/L (136-145); TOTAL PROTEIN 8.4 G/DL (6.4-8.2)
[2016-12-07 13:03] LABS: ANION GAP 20 (5-15)
[2016-12-07 13:10] LABS: REFLEX LACTIC ACID YES OR NO YES
--- NOTE | 2016-12-07 13:39 | Emergency Room Report ---
History of Present Illness General Chief Complaint: Chest Pain Source: Patient Present Illness HPI Patient presents with chest pain, cough with sputum production. He also has subjective fever and chills. Patient has a history of COPD. He also has a history of chronic pain and narcotic dependence. He also has a history of sarcoma with metastatic disease. He states that he is in pain all over his body and in his leg. Has a history of seizures and states she had a seizure today. He believes this is secondary to his ongoing pain. He has no other complaints. Allergies: Coded Allergies: KETOROLAC (Verified Allergy, Severe, 08/06/16) ASPIRIN (Verified Allergy, Intermediate, 08/06/16) CEPHALEXIN (Verified Allergy, Mild, 12/13/14) FISH DERIVED (Unverified Allergy, Unknown, 08/29/16) PEANUT (Verified Allergy, Unknown, 11/19/15) Uncoded Allergies: fish (Allergy, Unknown, 08/12/16) Patient History Past Medical History: see triage record, old chart reviewed, DM, COPD, GERD, seizures, other - Hepatitis, Sarcoma Social History: Denies: smoking, alcohol use, drug use Reviewed Nursing Documentation: PMH: Agreed, PSxH: Agreed Nursing Documentation-PMH Hx Cardiac Problems: Yes Hx Hypertension: Yes Hx COPD: Yes Hx Cancer: Yes - Sarcoma R femur and back Hx Gastrointestinal Problems: Yes Hx Neurological Problems: Yes - mononeuritis Hx Encephalitis: Yes - encephalopaty Hx Seizures: Yes Review of Systems All Other Systems: negative except mentioned in HPI Physical Exam Vital Signs Date Time Temp Pulse Resp B/P (MAP) Pulse Ox O2 Delivery O2 Flow Rate FiO2 12/07/16 11:29 99.0 119 18 94 Room Air 12/07/16 11:40 119/70 12/07/16 12:08 21 Sp02 EP Interpretation: reviewed, normal General Appearance: no apparent distress, alert, GCS 15, non-toxic Head: normocephalic, atraumatic Eyes: bilateral eye normal inspection, bilateral eye PERRL ENT: hearing grossly normal, normal pharynx, no angioedema, normal voice Neck: full range of motion, supple/symm/no masses Respiratory: no rhonchi, no respiratory distress, no retraction, no accessory muscle use, speaking full sentences, wheezing, expiration Cardiovascular #1: no edema, tachycardia Gastrointestinal: normal bowel sounds, non tender, soft, non-distended, no guarding, no rebound Rectal: deferred Musculoskeletal: back normal, other - +pain w/ movment of RLE Neurologic: alert, oriented x3, responsive, motor strength/tone normal, sensory intact, speech normal Psychiatric: judgement/insight normal, memory normal, mood/affect normal, no suicidal/homicidal ideation Skin: normal color, no rash, warm/dry, well hydrated Medical Decision Making Diagnostic Impression: Primary Impression: Chest pain Additional Impressions: COPD exacerbation Chronic pain Osteosarcoma of femur Lactic acidosis ER Course This patient presents with COPD exacerbation. He also has chronic pain related to osteosarcoma of his femur. He has narcotic dependence also. He was given albuterol and Atrovent nebulizer treatments. He was also given broad-spectrum antibiotics and IV fluids. He is admitted for further pulmonary hygiene, further evaluation and treatment. Laboratory Tests Test 12/07/16 11:40 White Blood Count 11.3 K/UL (4.8-10.8) H Red Blood Count 5.46 M/UL (4.70-6.10) Hemoglobin 16.5 G/DL (14.2-18.0) Hematocrit 49.0 % (42.0-52.0) Mean Corpuscular Volume 90 FL (80-99) Mean Corpuscular Hemoglobin 30.3 PG (27.0-31.0) Mean Corpuscular Hemoglobin Concent 33.8 G/DL (32.0-36.0) Red Cell Distribution Width 12.1 % (11.6-14.8) Platelet Count 365 K/UL (150-450) Mean Platelet Volume 7.0 FL (6.5-10.1) Neutrophils (%) (Auto) 71.6 % (45.0-75.0) Lymphocytes (%) (Auto) 19.7 % (20.0-45.0) L Monocytes (%) (Auto) 7.1 % (1.0-10.0) Eosinophils (%) (Auto) 0.7 % (0.0-3.0) Basophils (%) (Auto) 0.9 % (0.0-2.0) Prothrombin Time 10.0 SEC (9.30-11.50) Prothrombin Time INR 1.0 (0.9-1.1) PTT 26 SEC (23-33) Sodium Level 134 MMOL/L (136-145) L Potassium Level 3.8 MMOL/L (3.5-5.1) Chloride Level 98 MMOL/L (98-107) Carbon Dioxide Level 20 MMOL/L (21-32) L Anion Gap 20 (5-15) H Blood Urea Nitrogen 16 mg/dL (7-18) Creatinine 1.0 MG/DL (0.55-1.30) Estimate Glomerular Filtration Rate > 60 mL/min (>60) Glucose Level 170 MG/DL (74-106) H Lactic Acid Level 2.90 mmol/L (0.66-2.22) H Calcium Level 10.8 MG/DL (8.5-10.1) H Total Bilirubin 0.5 MG/DL (0.2-1.0) Aspartate Amino Transferase (AST) 48 U/L (15-37) H Alanine Aminotransferase (ALT) 68 U/L (12-78) Alkaline Phosphatase 182 U/L (46-116) H Total Creatine Kinase 172 U/L (26-308) Creatine Kinase MB 2.3 NG/ML (0.0-3.6) Creatine Kinase MB Relative Index 1.3 Troponin I 0.000 ng/mL (0.000-0.056) Pro-B-Type Natriuretic Peptide 36 (0-125) Total Protein 8.4 G/DL (6.4-8.2) H Albumin 4.1 G/DL (3.4-5.0) Globulin 4.3 g/dL Albumin/Globulin Ratio 1.0 (1.0-2.7) EKG Diagnostic Results Rate: tachycardiac Rhythm: other ST Segments: no acute changes Other Impression S.tachycardia Rhythm Strip Diag. Results EP Interpretation: yes Rate: 90's Chest X-Ray Diagnostic Results Chest X-Ray Diagnostic Results : Chest X-Ray Ordered: Yes # of Views/Limited/Complete: 1 View Indication: Chest Pain EP Interpretation: No Interpretation: no consolidation, no effusion, no pneumothorax, no acute cardiopulmonary disease Impression: No acute disease Electronically Signed by: Princess Last Vital Signs Date Time Temp Pulse Resp B/P (MAP) Pulse Ox O2 Delivery O2 Flow Rate FiO2 12/07/16 13:30 94 16 113/70 98 Room Air 12/07/16 12:09 21 12/07/16 11:40 99.0 Status: improved Disposition: ADMITTED INPATIENT Condition: Serious Referrals: NOT CHOSEN IPA/,REFERRING (PCP) JESSIE SOLIS D.O. Dec 07, 2016 13:39
--- NOTE | 2016-12-07 15:07 | Infectious Diseases Prog Note ---
Assessment/Plan Problems: (1) COPD (chronic obstructive pulmonary disease) Assessment & Plan: with acute exacerbation , will start ceftriaxone and Zithromax empirically, continue inhalers and oxygen (2) N&V (nausea and vomiting) Assessment & Plan: suspect gastritis , continue supportive care (3) Osteosarcoma of femur Assessment & Plan: S/P radiation, and chemo, further management as per oncology (4) Diarrhea in adult patient Assessment & Plan: will send stool for C diff and culture , start metronidazole empirically Subjective Allergies: Coded Allergies: KETOROLAC (Verified Allergy, Severe, 08/06/16) ASPIRIN (Verified Allergy, Intermediate, 08/06/16) CEPHALEXIN (Verified Allergy, Mild, 12/13/14) FISH DERIVED (Unverified Allergy, Unknown, 08/29/16) PEANUT (Verified Allergy, Unknown, 11/19/15) Uncoded Allergies: fish (Allergy, Unknown, 08/12/16) Objective Vital Signs Last 24 Hour Vital Signs Date Time Temp Pulse Resp B/P (MAP) Pulse Ox O2 Delivery O2 Flow Rate FiO2 12/07/16 13:30 94 16 113/70 98 Room Air 12/07/16 12:09 97 16 99 Room Air 21 12/07/16 12:08 101 17 Room Air 21 12/07/16 12:08 101 17 99 Room Air 21 12/07/16 12:08 21 12/07/16 11:40 99.0 95 17 119/70 94 Room Air 12/07/16 11:40 92 17 Room Air 12/07/16 11:29 99.0 119 18 94 Room Air Height (Feet): 5 Height (Inches): 10.00 Weight (Pounds): 330 Laboratory Tests Test 12/07/16 11:40 White Blood Count 11.3 K/UL (4.8-10.8) H Red Blood Count 5.46 M/UL (4.70-6.10) Hemoglobin 16.5 G/DL (14.2-18.0) Hematocrit 49.0 % (42.0-52.0) Mean Corpuscular Volume 90 FL (80-99) Mean Corpuscular Hemoglobin 30.3 PG (27.0-31.0) Mean Corpuscular Hemoglobin Concent 33.8 G/DL (32.0-36.0) Red Cell Distribution Width 12.1 % (11.6-14.8) Platelet Count 365 K/UL (150-450) Mean Platelet Volume 7.0 FL (6.5-10.1) Neutrophils (%) (Auto) 71.6 % (45.0-75.0) Lymphocytes (%) (Auto) 19.7 % (20.0-45.0) L Monocytes (%) (Auto) 7.1 % (1.0-10.0) Eosinophils (%) (Auto) 0.7 % (0.0-3.0) Basophils (%) (Auto) 0.9 % (0.0-2.0) Prothrombin Time 10.0 SEC (9.30-11.50) Prothromb Time International Ratio 1.0 (0.9-1.1) Activated Partial Thromboplast Time 26 SEC (23-33) Sodium Level 134 MMOL/L (136-145) L Potassium Level 3.8 MMOL/L (3.5-5.1) Chloride Level 98 MMOL/L (98-107) Carbon Dioxide Level 20 MMOL/L (21-32) L Anion Gap 20 (5-15) H Blood Urea Nitrogen 16 mg/dL (7-18) Creatinine 1.0 MG/DL (0.55-1.30) Estimat Glomerular Filtration Rate > 60 mL/min (>60) Glucose Level 170 MG/DL (74-106) H Lactic Acid Level 2.90 mmol/L (0.66-2.22) H Calcium Level 10.8 MG/DL (8.5-10.1) H Total Bilirubin 0.5 MG/DL (0.2-1.0) Aspartate Amino Transf (AST/SGOT) 48 U/L (15-37) H Alanine Aminotransferase (ALT/SGPT) 68 U/L (12-78) Alkaline Phosphatase 182 U/L (46-116) H Total Creatine Kinase 172 U/L (26-308) Creatine Kinase MB 2.3 NG/ML (0.0-3.6) Creatine Kinase MB Relative Index 1.3 Troponin I 0.000 ng/mL (0.000-0.056) Pro-B-Type Natriuretic Peptide 36 (0-125) Total Protein 8.4 G/DL (6.4-8.2) H Albumin 4.1 G/DL (3.4-5.0) Globulin 4.3 g/dL Albumin/Globulin Ratio 1.0 (1.0-2.7) Uri Tesfaye M.D. Dec 07, 2016 15:07
[2016-12-07] MEDS ORDERED: Morphine Sulfate 2mg/ml Inj IVP PRN (15:45)
[2016-12-07] MEDS ORDERED: Albuterol/Ipratropium 3ml neb HHN PRN (15:45)
[2016-12-07] MEDS ORDERED: LORazepam Inj 2mg/ml 1ml IV PRN (15:45)
[2016-12-07] MEDS ORDERED: Promethazine/Codeine 5ml UD ORAL PRN (15:45)
[2016-12-07] MEDS ORDERED: Nitroglycerin Subl 0.4mg tab SL PRN (15:45)
[2016-12-07] MEDS: Azithromycin 250mg tab ORAL SCH (16:07)
[2016-12-07] MEDS: metroNIDAZOLE 500mg tab ORAL SCH ×2 (16:07→23:11)
[2016-12-07 16:38] VITALS: BP 139/74
[2016-12-07] MEDS: Morphine Sulfate 4mg/ml Inj IVP PRN ×3 (17:10→23:27)
[2016-12-07] MEDS: Solu-MEDROL 125mg Inj IV SCH (19:33)
[2016-12-07] MEDS: Topiramate 25mg tab ORAL SCH (19:33)
[2016-12-07] MEDS ORDERED: Morphine Sulfate 4mg/ml Inj IVP PRN (19:45)
[2016-12-07 20:21] VITALS: BP 124/67
[2016-12-07] MEDS: Heparin 5000 units/ml inj SUBQ SCH (21:00)
[2016-12-07] MEDS: TraZODone 100mg tab ORAL SCH ×2 (21:00→22:02)
[2016-12-07] MEDS: Depakote ER 500mg tab ORAL SCH (21:00)
[2016-12-07] MEDS: carBAMazepine 200mg tab ORAL SCH (22:01)
[2016-12-08] VITALS: BP 137/79
--- NOTE | 2016-12-08 00:15 | Consultation ---
DATE OF CONSULTATION: INFECTIOUS DISEASES CONSULTATION REQUESTING PHYSICIAN: Jeremiah Singh D.O. REASON FOR CONSULTATION: Chronic obstructive pulmonary disease exacerbation, bronchitis, and diarrhea. Recommendation for antibiotics treatment. HISTORY OF PRESENT ILLNESS: The patient is a 41-year-old male, who had significant psych history and osteosarcoma of the right hip, was [facility] due to COPD exacerbation and nausea with diarrhea. The patient had skin biopsy almost two weeks ago and he received oral Bactrim after his skin biopsy. He developed diarrhea since then with nausea on and off. He also had congestion and persistent cough, producing yellowish phlegm. The patient denied any recent travel, but some resident at the penitentiary facility has been coughing the same way he has. The patient had a chest x-ray, which did not show any acute infiltration. In the emergency room, his white count was elevated and he had a temperature of 99, so he was started on intravenous antibiotics treatment and I was consulted by the primary provider for antibiotics choice and further management. PAST MEDICAL HISTORY: Significant for hypertension, COPD, psych disorder, and right hip osteosarcoma, status post radiation. PAST SURGICAL HISTORY: Negative. MEDICATIONS: He received ceftriaxone in the emergency room and morphine sulfate. ALLERGIES: He is allergic to multiple medications including cephalexin, peanut, aspirin, and ketorolac SOCIAL HISTORY: The patient had used tobacco and drugs in the past. Denied any recent drug abuse or alcohol abuse. He currently lives at the [facility] facility and unemployed. FAMILY HISTORY: Noncontributory. REVIEW OF SYSTEMS: A 14-point of system reviewed were all negative apart from the one I mentioned above in my History and Physical. PHYSICAL EXAMINATION: VITAL SIGNS: Temperature 99, pulse 92, respirations 17, blood pressure 119/70, and saturation 94% on room air. GENERAL: Young male, morbidly obese, sitting in bed, awake, alert, not in distress, coughing. HEENT: Normocephalic and atraumatic. Pupils are reactive to light. Moist oral mucosa. No exudate. Enlarged tonsils. No thrush. NECK: Supple. No lymphadenopathy. CARDIOVASCULAR: Tachycardic. S1 and S2 normal. No murmur or gallop. LUNGS: Diffuse wheezing and rales. Normal breathing efforts. Diminished breathing sounds at the bases. ABDOMEN: Soft, obese, distended with generalized tenderness. No rebound. No organomegaly. No ascites. EXTREMITIES: No edema or cyanosis. Right leg skin biopsy with clean wound and no drainage. LABORATORY DATA: Labs showed white count of 11.3, hemoglobin of 16.5, and platelet count of 365,000. BUN of 16 and creatinine of 1. AST of 48 and ALT of 68. IMAGING: Chest x-ray showed no acute disease. ASSESSMENT AND RECOMMENDATION: 1. Chronic obstructive pulmonary disease exacerbation. We will start the patient on ceftriaxone and Zithromax empiric treatment. Continue inhaler and oxygen as needed. May need steroid. 2. Nausea and vomiting, suspect gastritis. Continue supportive care and antinausea medicine. 3. Diarrhea, acute on chronic, rule out Clostridium difficile. We will send stool culture and Clostridium difficile toxin. We will start metronidazole empiric treatment. 4. Osteosarcoma of the femur, status post radiation and chemo. Further management as per Oncology. Continue pain management as per primary. Thank you for the consult. Uri Tesfaye M.D. DR: Tate JOB#: [id number] CC:
[2016-12-08] MEDS: Morphine Sulfate 4mg/ml Inj IVP PRN ×5 (01:35→19:05)
[2016-12-08 04:00] VITALS: BP 126/53
[2016-12-08] MEDS: Solu-MEDROL 125mg Inj IV SCH ×4 (06:01→18:42)
[2016-12-08] MEDS: metroNIDAZOLE 500mg tab ORAL SCH ×3 (06:01→21:32)
[2016-12-08 08:49] VITALS: BP 122/55
[2016-12-08] MEDS ORDERED: Phenytoin Susp 100mg/4ml ORAL SCH (09:00)
[2016-12-08] MEDS: Topiramate 25mg tab ORAL SCH ×2 (10:07→18:42)
[2016-12-08] MEDS: Azithromycin 250mg tab ORAL SCH (10:07)
[2016-12-08] MEDS: Depakote ER 500mg tab ORAL SCH ×2 (10:08→21:26)
[2016-12-08] MEDS: carBAMazepine 200mg tab ORAL SCH ×2 (10:10→21:27)
[2016-12-08] MEDS: Lisinopril 20mg tab ORAL SCH ×2 (10:11→10:26)
[2016-12-08] MEDS: Heparin 5000 units/ml inj SUBQ SCH ×2 (10:14→21:27)
[2016-12-08] MEDS ORDERED: cefTRIAXone 2 GM in D5W 110 ML IVPB SCH (12:00)
[2016-12-08 12:49] VITALS: BP 129/67
--- NOTE | 2016-12-08 14:34 | Consultation ---
History of Present Illness General Date patient seen: Dec 08, 2016 Chief Complaint: Chest Pain Referring physician: Dr. Singh Reason for Consultation: inpatient management Present Illness HPI 41 year old male with extensive pmhx including morbid obesity, COPD, seizures, chronic pain and narcotic dependence presents with chest pain, cough with sputum production. He claims that he has a history of sarcoma with metastatic disease. (never proven). He is admitted to telemetry for further management. Allergies: Coded Allergies: KETOROLAC (Verified Allergy, Severe, 08/06/16) ASPIRIN (Verified Allergy, Intermediate, 08/06/16) CEPHALEXIN (Verified Allergy, Mild, 12/13/14) FISH DERIVED (Unverified Allergy, Unknown, 08/29/16) PEANUT (Verified Allergy, Unknown, 11/19/15) Uncoded Allergies: fish (Allergy, Unknown, 08/12/16) Medication History Scheduled Amitriptyline HCl (Elavil*), 25 MG ORAL BEDTIME, (Reported) Amlodipine Besylate (Norvasc), 10 MG ORAL DAILY, (Reported) Carbamazepine (Tegretol*), 300 MG PO Q12HR, (Reported) Dicyclomine Hcl* (Bentyl*), 20 MG ORAL FOUR TIMES A DAY, (Reported) Divalproex Sodium* (Depakote Er*), 1,000 MG ORAL EVERY 12 HOURS, (Reported) Divalproex Sodium* (Depakote Er*), 750 MG ORAL DAILY, (Reported) Docusate Sodium* (Colace*), 100 MG ORAL DAILY, (Reported) Fentanyl 100MCG Patch* (Fentanyl 100MCG Patch*), 1 PATCH TDERMAL EVERY 72 HOURS, (Reported) Fluoxetine Hcl* (Prozac*), 20 MG ORAL DAILY, (Reported) Fluticasone/Salmeterol (Advair 100-50 Diskus), 1 PUFF INH BID, (Reported) Furosemide* (Lasix*), 40 MG ORAL DAILY, (Reported) Heparin Sod (Porcine) (Heparin Sodium*), 5,000 UNITS SUBQ EVERY 12 HOURS, ( Reported) Hydrochlorothiazide* (Hydrochlorothiazide*), 12.5 MG ORAL DAILY, (Reported) Lisinopril (Lisinopril*), 20 MG ORAL DAILY, (Reported) Lorazepam* (Ativan*), 2 MG ORAL EVERY 6 HOURS, (Reported) Morphine Sulfate (Morphine Sulfate ER), 30 MG PO Q8HR, (Reported) Phenytoin (Dilantin-125), 250 MG PO DAILY, (Reported) Potassium Chloride (Potassium Chloride), 20 MEQ PO DAILY, (Reported) Promethazine Hcl* (Phenergan*), 25 MG ORAL Q4HR, (Reported) Quetiapine Fumarate (Seroquel Xr), 400 MG ORAL DAILY, (Reported) Topiramate* (Topamax*), 50 MG ORAL TWICE A DAY, (Reported) Trazodone* (Trazodone*), 100 MG ORAL BEDTIME, (Reported) Scheduled PRN Acetaminophen* (Acetaminophen 325MG Tablet*), 650 MG ORAL Q6H PRN for Mild Pain/ Temp > 100.5, (Reported) Calcium Carbonate (Calcium), 500 MG ORAL Q4HR PRN for Per rx protocol, (Reported ) Hydrocodone Bit/Acetaminophen 5-325* (Frontier 5-325 Tablet*), 2 TAB ORAL Q4H PRN for For Pain, (Reported) Hydrocodone Bit/Acetaminophen 5-325* (Frontier 5-325*), 1 TAB ORAL Q4H PRN for For Pain, (Reported) Magnesium Hydroxide* (Milk Of Magnesia*), 30 ML ORAL DAILY PRN for Constipation, (Reported) Methocarbamol* (Robaxin-750*), 750 MG PO QID PRN for Muscle Spasm, (Reported) Morphine HCl (Morphine Sulfate ER), 15 MG ORAL Q6H PRN for Severe Pain (Pain Scale 7-10), (Reported) Ondansetron Odt* (Zofran Odt*), 4 MG ORAL Q4HR PRN for Nausea & Vomiting, ( Reported) Polyethylene Glycol 3350* (Polyethylene Glycol 3350*), 17 GM ORAL BEDTIME PRN for Constipation, (Reported) Temazepam* (Temazepam*), 15 MG ORAL BEDTIME PRN for Insomnia, (Reported) Zolpidem Tartrate* (Ambien*), 15 MG ORAL HS PRN for Insomnia, (Reported) Patient History Healthcare decision maker Resuscitation status Full Code Advanced Directive on File Past Medical/Surgical History Past Medical/Surgical History: (1) COPD (chronic obstructive pulmonary disease) (2) Hepatitis C (3) GERD (gastroesophageal reflux disease) (4) Morbid obesity (5) Seizure Review of Systems All Other Systems: negative except mentioned in HPI Physical Exam General Appearance: WD/WN, no apparent distress Lines, tubes and drains: peripheral HEENT: normocephalic, atraumatic Neck: non-tender, normal alignment Respiratory/Chest: chest wall non-tender, lungs clear Breasts: no masses Cardiovascular/Chest: normal peripheral pulses Abdomen: normal bowel sounds, non tender Genitourinary/Rectal: normal genital exam, normal prostate exam Last 24 Hour Vital Signs Date Time Temp Pulse Resp B/P (MAP) Pulse Ox O2 Delivery O2 Flow Rate FiO2 12/08/16 12:49 97.9 90 18 129/67 95 Room Air 12/08/16 12:22 67 12/08/16 10:26 122/50 12/08/16 10:11 122/55 12/08/16 09:00 89 122/55 12/08/16 08:49 97.3 89 18 122/55 95 Room Air 12/08/16 04:00 98.0 104 20 126/53 94 Room Air 12/08/16 02:05 97.0 12/08/16 02:05 98.2 12/08/16 00:00 98.2 95 20 137/79 96 Room Air 12/07/16 20:21 98.0 83 20 124/67 95 Room Air 12/07/16 20:00 86 16 Room Air 21 12/07/16 16:38 99.7 75 18 139/74 95 Room Air 12/07/16 16:00 78 12/07/16 15:00 79 Intake and Output 12/08/16 12/09/16 19:00 07:00 Intake Total 240 ml Balance 240 ml Intake Oral 240 ml # Voids 1 Laboratory Tests Test 12/07/16 18:15 Lactic Acid Level 2.40 mmol/L (0.66-2.22) H Height (Feet): 5 Height (Inches): 10.00 Weight (Pounds): 330 Medications Current Medications Medications (Trade) Dose Ordered Sig/Robert Route PRN Reason Start Time Stop Time Status Last Admin Dose Admin Albuterol/ Ipratropium (DuoNeb 0.5-3(2.5)mg/3ml) 3 ml Q4H PRN HHN dyspnea 12/07/16 15:45 12/12/16 15:44 Amitriptyline HCl (Elavil) 25 mg BEDTIME ORAL 12/07/16 21:00 01/06/17 20:59 12/07/16 22:02 Amlodipine Besylate (Norvasc) 10 mg DAILY ORAL 12/08/16 09:00 01/07/17 08:59 12/08/16 09:00 Azithromycin (Zithromax) 250 mg DAILY ORAL 12/07/16 16:00 12/14/16 15:59 12/08/16 10:07 Carbamazepine (TEGretol) 300 mg Q12HR ORAL 12/07/16 21:00 01/06/17 20:59 12/08/16 10:10 Ceftriaxone Sodium 2 gm/ Dextrose 110 ml @ 220 mls/hr Q24H IVPB 12/08/16 12:00 12/15/16 11:59 Dextrose (Dextrose 50%) STAT PRN IV Hypoglycemia 12/07/16 15:45 01/06/17 15:44 Divalproex Sodium (Depakote ER) 1,000 mg EVERY 12 HOURS ORAL 12/07/16 21:00 01/06/17 20:59 12/08/16 10:08 Fluoxetine HCl (PROzac) 20 mg DAILY ORAL 12/08/16 09:00 01/07/17 08:59 12/08/16 10:10 Heparin Sodium (Porcine) (Heparin 5000 units/ml) 5,000 units EVERY 12 HOURS SUBQ 12/07/16 21:00 01/06/17 20:59 12/08/16 10:14 Lisinopril (Prinivil) 20 mg DAILY ORAL 12/08/16 09:00 01/07/17 08:59 12/08/16 10:26 Lorazepam (Ativan 2mg/ml 1ml) 0.5 mg Q4H PRN IV For Anxiety 12/07/16 15:45 12/14/16 15:44 Methylprednisolone Sodium Succinate (Solu-MEDROL) 60 mg EVERY 6 HOURS IV 12/07/16 18:00 01/06/17 17:59 12/08/16 06:01 Metronidazole (Flagyl) 500 mg Q8HR ORAL 12/07/16 16:00 12/14/16 15:59 12/08/16 06:01 Morphine Sulfate (Morphine Sulfate) 4 mg Q4H PRN IVP severe pain 7-10 12/07/16 17:00 12/14/16 16:59 12/08/16 10:06 Nitroglycerin (Ntg) 0.4 mg Q5M X 3 DOSES PRN SL Prn Chest Pain 12/07/16 15:45 01/06/17 15:44 Ondansetron HCl (Zofran) 4 mg Q6H PRN IVP Nausea & Vomiting 12/07/16 15:45 01/06/17 15:44 Phenytoin (Dilantin) 250 mg DAILY ORAL 12/08/16 09:00 01/07/17 08:59 12/08/16 10:13 Promethazine HCl/ Codeine (Phenergan with Codeine) 5 ml Q6H PRN ORAL cough 12/07/16 15:45 01/06/17 15:44 Temazepam (Restoril) 15 mg HSPRN PRN ORAL Insomnia 12/07/16 15:45 12/14/16 15:44 Topiramate (Topamax) 50 mg TWICE A DAY ORAL 12/07/16 18:00 01/06/17 17:59 12/08/16 10:07 Trazodone HCl (Desyrel) 100 mg BEDTIME ORAL 12/07/16 21:00 01/06/17 20:59 12/07/16 22:02 Assessment/Plan Problem List: (1) COPD exacerbation ICD Codes: J44.1 - Chronic obstructive pulmonary disease with (acute) exacerbation SNOMED: 879211779, 981135417 (2) Seizure ICD Codes: R56.9 - Unspecified convulsions SNOMED: 72136730 (3) Psychiatric disorder ICD Codes: F99 - Mental disorder, not otherwise specified SNOMED: 48912938, 291026708 (4) Hepatitis C ICD Codes: B19.20 - Unspecified viral hepatitis C without hepatic coma SNOMED: 68348089 (5) GERD (gastroesophageal reflux disease) ICD Codes: K21.9 - Gastro-esophageal reflux disease without esophagitis SNOMED: 825336606 Assessment/Plan respiratory treatment check sputum pain management psych evaluation dvt prophylaxis LAUREN OCHOA Dec 08, 2016 14:34
--- NOTE | 2016-12-08 14:42 | General Progress Note ---
Assessment/Plan Assessment/Plan (1) Osteosarcoma of femur (2) Morbid obesity (3) Chronic pain syndrome (4) Seizure disorder Patient will be discontinued off Morphine We will start Fentanyl patch 100mcg Q72H, Oxycodone 10mg 1 tab Q6H PRN, Dilaudid 2mg IV Q4H PRN Pt was d/w Dr. Muhammad and he concurred. Thank you for the courtesy of this consultation. Subjective Date patient seen: Dec 08, 2016 Time patient seen: 01:15 - pm Allergies: Coded Allergies: KETOROLAC (Verified Allergy, Severe, 08/06/16) ASPIRIN (Verified Allergy, Intermediate, 08/06/16) CEPHALEXIN (Verified Allergy, Mild, 12/13/14) FISH DERIVED (Unverified Allergy, Unknown, 08/29/16) PEANUT (Verified Allergy, Unknown, 11/19/15) Uncoded Allergies: fish (Allergy, Unknown, 08/12/16) Subjective REVIEW OF SYSTEMS: Denies rash, fever, chills, sweating, dizziness, drowsiness, blurred vision, sore throat, change in weight. No chest pain. He is complaining of low back and lower extremity pain. SUBJECTIVE: Patient is a known patient from prior admission and has been admitted under the care of Dr. Singh due to COPD exacerbation. Patient is on Fentanyl patch 100mg Q72hrs and Oxycodone 10mg as needed as an out pt. He has continued pain in his hip and we were consulted so patient would have adequate pain control while here in the hospital. Objective Last 24 Hour Vital Signs Date Time Temp Pulse Resp B/P (MAP) Pulse Ox O2 Delivery O2 Flow Rate FiO2 12/08/16 12:49 97.9 90 18 129/67 95 Room Air 12/08/16 12:22 67 12/08/16 10:26 122/50 12/08/16 10:11 122/55 12/08/16 09:00 89 122/55 12/08/16 08:49 97.3 89 18 122/55 95 Room Air 12/08/16 04:00 98.0 104 20 126/53 94 Room Air 12/08/16 02:05 97.0 12/08/16 02:05 98.2 12/08/16 00:00 98.2 95 20 137/79 96 Room Air 12/07/16 20:21 98.0 83 20 124/67 95 Room Air 12/07/16 20:00 86 16 Room Air 21 12/07/16 16:38 99.7 75 18 139/74 95 Room Air 12/07/16 16:00 78 12/07/16 15:00 79 Intake and Output 12/08/16 12/09/16 19:00 07:00 Intake Total 240 ml Balance 240 ml Intake Oral 240 ml # Voids 1 Laboratory Tests 12/07/16 18:15: Lactic Acid Level 2.40H Height (Feet): 5 Height (Inches): 10.00 Weight (Pounds): 330 Objective GENERAL: Alert and oriented x3. HEENT: PERRLA. NECK: Range of motion is full in all direction. No tenderness to paracervical muscles. No adenopathy. LUNGS: Decreased breath sounds bilaterally. HEART: Regular. ABDOMEN: Obese, tenderness to palpation BACK: Range of motion is decreased on flexion and extension with tenderness to paraspinal muscles. No tenderness to trapezius muscles. EXTREMITIES: No cyanosis, no clubbing, no edema. NEUROLOGICAL EXAM: Lower extremities range of motion is decreased due to patient's medical condition with motor being 4/5 in all muscles bilaterally. LIA HAGEN Dec 08, 2016 14:42
[2016-12-08] MEDS ORDERED: oxyCODONE 5mg IR tab ORAL PRN (14:45)
[2016-12-08] MEDS ORDERED: Naloxone 0.4mg/ml Inj IV PRN (14:45)
[2016-12-08] MEDS ORDERED: fentaNYL Destruction MISC SCH ×2 (14:45→18:00)
--- NOTE | 2016-12-08 15:27 | Infectious Diseases Prog Note ---
Assessment/Plan Problems: (1) COPD (chronic obstructive pulmonary disease) Assessment & Plan: with acute exacerbation , continue ceftriaxone and Zithromax empirically, continue inhalers and oxygen (2) N&V (nausea and vomiting) Assessment & Plan: suspect gastritis , continue supportive care (3) Osteosarcoma of femur Assessment & Plan: S/P radiation, and chemo, further management as per oncology (4) Diarrhea in adult patient Assessment & Plan: await stool for C diff and culture , continue metronidazole empirically Subjective Constitutional: Reports: no symptoms HEENT: Reports: no symptoms Respiratory: Reports: no symptoms Breasts: Reports: no symptoms Cardiovascular: Reports: no symptoms Gastrointestinal/Abdominal: Reports: no symptoms Genitourinary: Reports: no symptoms Neurologic: Reports: no symptoms Psychiatric: Reports: no symptoms Skin: Reports: no symptoms Endocrine: Reports: no symptoms Hematologic: Reports: no symptoms Musculoskeletal: Reports: no symptoms Allergies: Coded Allergies: KETOROLAC (Verified Allergy, Severe, 08/06/16) ASPIRIN (Verified Allergy, Intermediate, 08/06/16) CEPHALEXIN (Verified Allergy, Mild, 12/13/14) FISH DERIVED (Unverified Allergy, Unknown, 08/29/16) PEANUT (Verified Allergy, Unknown, 11/19/15) Uncoded Allergies: fish (Allergy, Unknown, 08/12/16) Objective Vital Signs Last 24 Hour Vital Signs Date Time Temp Pulse Resp B/P (MAP) Pulse Ox O2 Delivery O2 Flow Rate FiO2 12/08/16 12:49 97.9 90 18 129/67 95 Room Air 12/08/16 12:22 67 12/08/16 10:26 122/50 12/08/16 10:11 122/55 12/08/16 09:30 91 16 Room Air 21 12/08/16 09:00 89 122/55 12/08/16 08:49 97.3 89 18 122/55 95 Room Air 12/08/16 04:00 98.0 104 20 126/53 94 Room Air 12/08/16 02:05 97.0 12/08/16 02:05 98.2 12/08/16 00:00 98.2 95 20 137/79 96 Room Air 12/07/16 20:21 98.0 83 20 124/67 95 Room Air 12/07/16 20:00 86 16 Room Air 21 12/07/16 16:38 99.7 75 18 139/74 95 Room Air 12/07/16 16:00 78 Height (Feet): 5 Height (Inches): 10.00 Weight (Pounds): 330 General Appearance: WD/WN, no acute distress HEENT: normocephalic, atraumatic, anicteric, mucous membranes moist, PERRL, EOMI, pharynx normal, supple, no JVD Respiratory/Chest: chest wall non-tender, no respiratory distress, no accessory muscle use, decreased breath sounds, expiratory wheezing Cardiovascular: normal peripheral pulses, normal rate, regular rhythm, no gallop/murmur, no JVD Abdomen: normal bowel sounds, soft, non tender, no organomegaly, non distended , no mass, no scars Extremities: no cyanosis, no clubbing Skin: no rash, no lesions, no ulcers 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: alert, oriented x 3, responsive Lymphatic: no neck adenopathy, no groin adenopathy Laboratory Tests Test 12/07/16 18:15 Lactic Acid Level 2.40 mmol/L (0.66-2.22) H Current Medications Medications (Trade) Dose Ordered Sig/Robert Route PRN Reason Start Time Stop Time Status Last Admin Dose Admin Albuterol/ Ipratropium (DuoNeb 0.5-3(2.5)mg/3ml) 3 ml Q4H PRN HHN dyspnea 12/07/16 15:45 12/12/16 15:44 Amitriptyline HCl (Elavil) 25 mg BEDTIME ORAL 12/07/16 21:00 01/06/17 20:59 12/07/16 22:02 Amlodipine Besylate (Norvasc) 10 mg DAILY ORAL 12/08/16 09:00 01/07/17 08:59 12/08/16 09:00 Azithromycin (Zithromax) 250 mg DAILY ORAL 12/07/16 16:00 12/14/16 15:59 12/08/16 10:07 Carbamazepine (TEGretol) 300 mg Q12HR ORAL 12/07/16 21:00 01/06/17 20:59 12/08/16 10:10 Ceftriaxone Sodium 2 gm/ Dextrose 110 ml @ 220 mls/hr Q24H IVPB 12/08/16 12:00 12/15/16 11:59 Dextrose (Dextrose 50%) STAT PRN IV Hypoglycemia 12/07/16 15:45 01/06/17 15:44 Divalproex Sodium (Depakote ER) 1,000 mg EVERY 12 HOURS ORAL 12/07/16 21:00 01/06/17 20:59 12/08/16 10:08 Fentanyl (Duragesic) 1 patch Q72H TDERMAL 12/08/16 14:45 12/15/16 14:44 UNV Fluoxetine HCl (PROzac) 20 mg DAILY ORAL 12/08/16 09:00 01/07/17 08:59 12/08/16 10:10 Heparin Sodium (Porcine) (Heparin 5000 units/ml) 5,000 units EVERY 12 HOURS SUBQ 12/07/16 21:00 01/06/17 20:59 12/08/16 10:14 Hydromorphone HCl (Dilaudid) 2 mg Q4H PRN IVP severe breakthrough pain 12/08/16 14:45 12/15/16 14:44 Lisinopril (Prinivil) 20 mg DAILY ORAL 12/08/16 09:00 01/07/17 08:59 12/08/16 10:26 Lorazepam (Ativan 2mg/ml 1ml) 0.5 mg Q4H PRN IV For Anxiety 12/07/16 15:45 12/14/16 15:44 Methylprednisolone Sodium Succinate (Solu-MEDROL) 60 mg EVERY 6 HOURS IV 12/07/16 18:00 01/06/17 17:59 12/08/16 14:30 Metronidazole (Flagyl) 500 mg Q8HR ORAL 12/07/16 16:00 12/14/16 15:59 12/08/16 14:31 Miscellaneous Medication (fentaNYL Destruction) 1 ea Q72H MISC 12/08/16 14:45 01/07/17 14:44 UNV Morphine Sulfate (Morphine Sulfate) 4 mg Q4H PRN IVP severe pain 7-10 12/07/16 17:00 12/14/16 16:59 12/08/16 14:30 Naloxone HCl (Narcan) 0.1 mg PRN IV Sedation scale 3 or 4 12/08/16 14:45 01/07/17 14:44 Nitroglycerin (Ntg) 0.4 mg Q5M X 3 DOSES PRN SL Prn Chest Pain 12/07/16 15:45 01/06/17 15:44 Ondansetron HCl (Zofran) 4 mg Q6H PRN IVP Nausea & Vomiting 12/07/16 15:45 01/06/17 15:44 Oxycodone HCl (Roxicodone) 10 mg Q6H PRN ORAL moderate Breakthrough Pain 12/08/16 14:45 12/15/16 14:44 Phenytoin (Dilantin) 250 mg DAILY ORAL 12/08/16 09:00 01/07/17 08:59 12/08/16 10:13 Promethazine HCl/ Codeine (Phenergan with Codeine) 5 ml Q6H PRN ORAL cough 12/07/16 15:45 01/06/17 15:44 Temazepam (Restoril) 15 mg HSPRN PRN ORAL Insomnia 12/07/16 15:45 12/14/16 15:44 Topiramate (Topamax) 50 mg TWICE A DAY ORAL 12/07/16 18:00 01/06/17 17:59 12/08/16 10:07 Trazodone HCl (Desyrel) 100 mg BEDTIME ORAL 12/07/16 21:00 01/06/17 20:59 12/07/16 22:02 Uri Tesfaye M.D. Dec 08, 2016 15:27
[2016-12-08 15:50] VITALS: BP 123/64
--- NOTE | 2016-12-08 17:57 | Wound Care Consultation ---
Wound Assessment Wound Assessment : Wound Number: 1 Wound Present on Admission: Yes New Wound: No Status Change of Wound: No Wound Location Body Site Modif: right, anterior Wound Location Body Site: leg Wound Type: other - open wound Adán Test: Does not Adán Wound Thickness: Full Thickness Wound Length: 1.0 Wound Width: 1.0 Wound Depth: 1.0 Percent of Wound [place]/Red: 100 Wound Drainage Description: Serosanguineous Wound Drainage Amount: Scant Wound Drainage Odor: None/Absent Tissue Surrounding Wound: Intact Wound General Appearance: Reddened, Draining Wound Comment #1 Open wound on right lower anterior leg. According to Pt a Biopsy was done on his leg recently. Recommendation Cleanse with saline pat dry apply Adaptic cover with bordered gauze daily and PRN soiled/dislodged Assess and f/u with MD for any changes on the affected site ANAI GUTIERREZ RN Dec 08, 2016 17:57
[2016-12-08 19:00] VITALS: BP 138/87
[2016-12-08] MEDS ORDERED: TraZODone 100mg tab ORAL SCH (21:00)
[2016-12-09] VITALS (7 sets, daily range): BP systolic 102–142; BP diastolic 59–89
[2016-12-09] MEDS: Morphine Sulfate 4mg/ml Inj IVP PRN ×6 (00:13→21:31)
[2016-12-09] MEDS: Solu-MEDROL 125mg Inj IV SCH ×5 (00:19→22:54)
[2016-12-09] MEDS: metroNIDAZOLE 500mg tab ORAL SCH ×3 (05:36→21:30)
[2016-12-09] MEDS ORDERED: Nitroglycerin Subl 0.4mg tab SL PRN (06:15)
[2016-12-09] MEDS ORDERED: Naloxone 0.4mg/ml Inj IV PRN (06:15)
--- NOTE | 2016-12-09 06:45 | History and Physical Report ---
DATE OF ADMISSION: 12/07/2016 CONSULTANTS: 1. Ministerio Joe M.D. 2. Dr. Del Valle. 3. Awa Thomas M.D. 4. Ignacio Muhammad M.D. 5. Chacorta Abbott M.D. CHIEF COMPLAINT: Exacerbation of COPD, shortness of breath, and chronic pain. BRIEF HISTORY: This is a 41-year-old male, who previously at [facility], was discharge to [facility]. The patient became very short of breath for 2 days. Slight back pain as well. The patient was sent to [facility], diagnosed with the above, and admitted to telemetry for further care. Currently slightly anxious, slightly short of breath in bed. No other complaints. PAST MEDICAL HISTORY: COPD, chronic pain, encephalopathy, weakness, obesity, and glaucoma. PAST SURGICAL HISTORY: Right leg. MEDICATIONS: Duragesic, Narcan, fentanyl, Roxicodone, Dilaudid, ceftriaxone, Norvasc, Prozac, Prinivil, Dilantin, and Lipitor. ALLERGIES: Keflex, aspirin, and ketorolac. SOCIAL HISTORY: Positive for smoking. No alcohol. No intravenous drug abuse. FAMILY HISTORY: Noncontributory. REVIEW OF SYSTEMS: No chest pain. Shortness of breath. No nausea, vomiting, or diarrhea. PHYSICAL EXAMINATION: GENERAL: Slightly anxious in room, oriented x3, in no acute distress. VITAL SIGNS: Temperature is 97 degrees, pulse 90, respiratory rate 18, blood pressure 129/67. CARDIOVASCULAR: No murmur. LUNGS: Poor air exchange. ABDOMEN: Bowel sounds positive. Nontender and nondistended. EXTREMITIES: No cyanosis, clubbing, or edema. NEUROLOGIC: The patient moves all extremities. Lower extremity weakness noted. Walks with a cane. LABORATORY DATA: Lab exam shows white count 11.3. Sodium 134, CO2 20, glucose 170. AST 40, alkaline phosphatase 182. Lactic acid 2.9. INR is 1.0, PTT 26. ASSESSMENT: 1. Exacerbation of chronic obstructive pulmonary disease. 2. Leukocytosis. 3. Cough. 4. Diabetes. 5. Chronic pain. 6. Encephalopathy. 7. Weakness. 8. Obesity. PLAN: 1. OT, PT, and dietary followup. 2. Antibiotics per Infectious Disease. 3. Pain control . 4. CBC and BMP in the morning. 5. Dr. Joe, Dr. Del Valle, Dr. Thomas, Dr. Muhammad, and Dr. Abbott to consult. We will continue to follow the patient. Jeremiah Singh D.O. DR: Fartun JOB#: [id number] CC:
--- NOTE | 2016-12-09 06:46 | Consultation ---
DATE OF CONSULTATION: 12/08/2016 HEMATOLOGY/ONCOLOGY CONSULTATION CONSULTING PHYSICIAN: Bin Abbott M.D. REQUESTING PHYSICIAN: Jeremiah Singh D.O. IDENTIFICATION DATA: Dear Dr. Singh, The patient is a pleasant 41-year-old male with a past medical history significant for morbid obesity and COPD, at this time presents to [facility] with chest pain, cough productive of sputum, seen by Pulmonary team. He also has a history of sarcoma, which has never been diagnosed, admitted for further evaluation and treatment. He had presented in the past on 08/27/2016 as well. At that time, I did not see this patient. He has a history of most likely an osteosarcoma per review of his records. At this time, Hematology/Oncology service was consulted for further evaluation and treatment of his underlying disease. PAST MEDICAL HISTORY: Osteosarcoma, COPD, bronchitis, and diarrhea. PAST MEDICATIONS: Ceftriaxone in the ER and morphine sulfate. ALLERGIES: Keflex, peanut, aspirin, and ketorolac. SOCIAL HISTORY: He has used tobacco and drugs in the past. FAMILY HISTORY: Noncontributory. REVIEW OF SYSTEMS: A 12-point review of systems is otherwise negative. PHYSICAL EXAMINATION: VITAL SIGNS: Reviewed. GENERAL: No acute distress. PULMONARY: Decreased breath sounds. CARDIOVASCULAR: Regular rate. No S3 or S4. ABDOMEN: Soft, nontender, and nondistended. EXTREMITIES: There is 1+ edema. LABORATORY DATA: Labs, WBC 9.3, hemoglobin 16, hematocrit 49, and pathology reviewed. IMAGING: On 12/03/2016, system. ASSESSMENT AND RECOMMENDATIONS: 1. Osteosarcoma, no diagnosis proven in the past. Continue to closely monitor. 2. Anemia secondary to chronic disease. Continue to observe. 3. Leukocytosis, likely secondary to reactive process. 4. Elevated blood sugar. Continue to monitor. 5. Sepsis with an elevated lactate at 2.9. Continue to monitor. 6. Hepatitis C. 7. Morbid obesity. 8. Seizure disorder. I appreciate the evaluation. Bin Abbott M.D. DR: HADLEY JOB#: [id number] CC:
[2016-12-09] MEDS ORDERED: Albuterol/Ipratropium 3ml neb HHN PRN (07:45)
[2016-12-09] MEDS ORDERED: LORazepam Inj 2mg/ml 1ml IV PRN (07:45)
[2016-12-09] MEDS: Phenytoin Susp 100mg/4ml ORAL SCH (08:25)
[2016-12-09] MEDS: Depakote ER 500mg tab ORAL SCH ×2 (08:26→21:29)
[2016-12-09] MEDS: Azithromycin 250mg tab ORAL SCH (08:26)
[2016-12-09] MEDS: carBAMazepine 200mg tab ORAL SCH ×2 (08:27→21:30)
[2016-12-09] MEDS: Lisinopril 20mg tab ORAL SCH (08:28)
[2016-12-09] MEDS: Heparin 5000 units/ml inj SUBQ SCH ×2 (08:29→21:32)
[2016-12-09] MEDS ORDERED: oxyCODONE 5mg IR tab ORAL PRN (08:45)
[2016-12-09 08:58] LABS: MEAN CORPUSCULAR HEMOGLOBIN 31.6 PG (27.0-31.0); MEAN CORPUSCULAR HGB CONC 34.2 G/DL (32.0-36.0); MEAN CORPUSCULAR VOLUME 92 FL (80-99); MEAN PLATELET VOLUME 7.4 FL (6.5-10.1); PLATELET COUNT 303 K/UL (150-450); RED BLOOD COUNT 4.51 M/UL (4.70-6.10); RED CELL DISTRIBUTION WIDTH 12.3 % (11.6-14.8)
[2016-12-09] MEDS ORDERED: Topiramate 25mg tab ORAL SCH (09:00)
[2016-12-09] MEDS ORDERED: Lisinopril 20mg tab ORAL SCH (09:00)
[2016-12-09 09:23] LABS: ANION GAP 11 (5-15); CALCIUM 9.2 MG/DL (8.5-10.1); CARBON DIOXIDE 22 MMOL/L (21-32); CHLORIDE 95 MMOL/L (98-107); CREATININE 1.1 MG/DL (0.55-1.30); GLOMERULAR FILTRATION RATE > 60 mL/min (>60); POTASSIUM 4.6 MMOL/L (3.5-5.1); SODIUM 128 MMOL/L (136-145)
[2016-12-09] MEDS ORDERED: Promethazine/Codeine 5ml UD ORAL PRN (09:45)
[2016-12-09 10:24] LABS: BAND NEUTROPHILS % (MANUAL) 0 % (0-8); BASOPHILS % (MANUAL) 0 % (0-2); EOSINOPHILS % (MANUAL) 0 % (0-3); LYMPHOCYTES % (MANUAL) 12 % (20-45); NEUTROPHILS % (MANUAL) 86 % (45-75); PLATELET ESTIMATE ADEQUATE; PLATELET MORPHOLOGY NORMAL; TOTAL CELLS COUNTED 100
[2016-12-09] MEDS: cefTRIAXone 2 GM in D5W 110 ML IVPB SCH (12:12)
--- NOTE | 2016-12-09 12:25 | General Progress Note ---
Assessment/Plan Status: stable Assessment/Plan ptsd seroquel and ativan the pt is reluctant to take any other meds Subjective 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: Reports: anxiety, depressed, emotional problems Allergies: Coded Allergies: KETOROLAC (Verified Allergy, Severe, 08/06/16) ASPIRIN (Verified Allergy, Intermediate, 08/06/16) CEPHALEXIN (Verified Allergy, Mild, 12/13/14) FISH DERIVED (Unverified Allergy, Unknown, 08/29/16) PEANUT (Verified Allergy, Unknown, 11/19/15) Uncoded Allergies: fish (Allergy, Unknown, 08/12/16) Subjective the pt is manipulative and stated that he lost his children in a car accident then he stated he lost his . lingering around nursing station and is med seeking. Objective Last 24 Hour Vital Signs Date Time Temp Pulse Resp B/P (MAP) Pulse Ox O2 Delivery O2 Flow Rate FiO2 12/09/16 08:28 142/89 12/09/16 08:26 89 142/89 12/09/16 08:17 89 16 Room Air 21 12/09/16 08:05 97.0 84 20 142/89 97 Room Air 12/09/16 04:00 97.7 97 22 112/76 96 Room Air 12/09/16 00:00 97.7 93 23 123/60 94 Room Air 12/08/16 22:03 97.9 12/08/16 22:03 97.9 12/08/16 19:30 88 16 Room Air 21 12/08/16 19:00 97.9 90 22 138/87 95 Room Air 12/08/16 16:00 88 12/08/16 15:50 97.3 96 18 123/64 100 Room Air 12/08/16 12:49 97.9 90 18 129/67 95 Room Air 12/08/16 12:22 67 Intake and Output 12/09/16 12/10/16 19:00 07:00 # Bowel Movements 1 Laboratory Tests 12/09/16 08:45: White Blood Count 14.0H, Red Blood Count 4.51L, Hemoglobin 14.2, Hematocrit 41.6L, Mean Corpuscular Volume 92, Mean Corpuscular Hemoglobin 31.6H, Mean Corpuscular Hemoglobin Concent 34.2, Red Cell Distribution Width 12.3, Platelet Count 303, Mean Platelet Volume 7.4, Neutrophils (%) (Auto) , Lymphocytes (%) ( Auto) , Monocytes (%) (Auto) , Eosinophils (%) (Auto) , Basophils (%) (Auto) , Differential Total Cells Counted 100, Neutrophils % (Manual) 86H, Lymphocytes % (Manual) 12L, Monocytes % (Manual) 2, Eosinophils % (Manual) 0, Basophils % ( Manual) 0, Band Neutrophils 0, Platelet Estimate Adequate, Platelet Morphology Normal, Red Blood Cell Morphology Normal, Sodium Level 128L, Potassium Level 4.6 , Chloride Level 95L, Carbon Dioxide Level 22, Anion Gap 11, Blood Urea Nitrogen 18, Creatinine 1.1, Estimat Glomerular Filtration Rate > 60, Glucose Level 339H, Calcium Level 9.2 Height (Feet): 5 Height (Inches): 10.00 Weight (Pounds): 330 General Appearance: no apparent distress, alert, obese Neurologic: alert, oriented x 3, responsive, normal mood/affect Bret Manuel M.D. Dec 09, 2016 12:25
[2016-12-09] MEDS: LORazepam 1mg tab ORAL PRN (13:37)
--- NOTE | 2016-12-09 14:49 | General Progress Note ---
Assessment/Plan Assessment/Plan (1) Osteosarcoma of femur (2) Morbid obesity (3) Chronic pain syndrome (4) Seizure disorder We will continued on Fentanyl patch, Oxycodone and Dilaudid. Pt was d/w Dr. Muhammad and he concurred. Subjective Date patient seen: Dec 09, 2016 Time patient seen: 01:15 - pm Allergies: Coded Allergies: KETOROLAC (Verified Allergy, Severe, 08/06/16) ASPIRIN (Verified Allergy, Intermediate, 08/06/16) CEPHALEXIN (Verified Allergy, Mild, 12/13/14) FISH DERIVED (Unverified Allergy, Unknown, 08/29/16) PEANUT (Verified Allergy, Unknown, 11/19/15) Uncoded Allergies: fish (Allergy, Unknown, 08/12/16) Subjective REVIEW OF SYSTEMS: Denies rash, fever, chills, sweating, dizziness, drowsiness, blurred vision, sore throat, change in weight. No chest pain. He is complaining of low back and lower extremity pain. SUBJECTIVE: Patient is sitting in wheelchair. Pain has been tolerated on the medications and are at a moderate level. Objective Last 24 Hour Vital Signs Date Time Temp Pulse Resp B/P (MAP) Pulse Ox O2 Delivery O2 Flow Rate FiO2 12/09/16 12:35 97.3 96 18 113/60 95 Room Air 12/09/16 08:28 142/89 12/09/16 08:26 89 142/89 12/09/16 08:17 89 16 Room Air 21 12/09/16 08:05 97.0 84 20 142/89 97 Room Air 12/09/16 04:00 97.7 97 22 112/76 96 Room Air 12/09/16 00:00 97.7 93 23 123/60 94 Room Air 12/08/16 22:03 97.9 12/08/16 22:03 97.9 12/08/16 19:30 88 16 Room Air 21 12/08/16 19:00 97.9 90 22 138/87 95 Room Air 12/08/16 16:00 88 12/08/16 15:50 97.3 96 18 123/64 100 Room Air Intake and Output 12/09/16 12/10/16 19:00 07:00 Intake Total 110 ml Balance 110 ml IV Total 110 ml # Bowel Movements 1 Laboratory Tests 12/09/16 08:45: White Blood Count 14.0H, Red Blood Count 4.51L, Hemoglobin 14.2, Hematocrit 41.6L, Mean Corpuscular Volume 92, Mean Corpuscular Hemoglobin 31.6H, Mean Corpuscular Hemoglobin Concent 34.2, Red Cell Distribution Width 12.3, Platelet Count 303, Mean Platelet Volume 7.4, Neutrophils (%) (Auto) , Lymphocytes (%) ( Auto) , Monocytes (%) (Auto) , Eosinophils (%) (Auto) , Basophils (%) (Auto) , Differential Total Cells Counted 100, Neutrophils % (Manual) 86H, Lymphocytes % (Manual) 12L, Monocytes % (Manual) 2, Eosinophils % (Manual) 0, Basophils % ( Manual) 0, Band Neutrophils 0, Platelet Estimate Adequate, Platelet Morphology Normal, Red Blood Cell Morphology Normal, Sodium Level 128L, Potassium Level 4.6 , Chloride Level 95L, Carbon Dioxide Level 22, Anion Gap 11, Blood Urea Nitrogen 18, Creatinine 1.1, Estimat Glomerular Filtration Rate > 60, Glucose Level 339H, Calcium Level 9.2 Height (Feet): 5 Height (Inches): 10.00 Weight (Pounds): 330 Objective GENERAL: Alert and oriented x3. HEENT: PERRLA. NECK: Range of motion is full in all direction. No tenderness to paracervical muscles. No adenopathy. LUNGS: Decreased breath sounds bilaterally. HEART: Regular. ABDOMEN: Obese, tenderness to palpation BACK: Range of motion is decreased on flexion and extension with tenderness to paraspinal muscles. No tenderness to trapezius muscles. EXTREMITIES: No cyanosis, no clubbing, no edema. NEUROLOGICAL EXAM: Lower extremities range of motion is decreased due to patient's medical condition with motor being 4/5 in all muscles bilaterally. LIA HAGEN Dec 09, 2016 14:49
--- NOTE | 2016-12-09 14:52 | General Progress Note ---
Assessment/Plan Problem List: (1) COPD exacerbation ICD Codes: J44.1 - Chronic obstructive pulmonary disease with (acute) exacerbation SNOMED: 533494255, 266619801 (2) Leukocytosis ICD Codes: D72.829 - Elevated white blood cell count, unspecified SNOMED: 428290062, 342242204 (3) Chronic pain ICD Codes: G89.29 - Other chronic pain SNOMED: 05885825 (4) Morbid obesity ICD Codes: E66.01 - Morbid (severe) obesity due to excess calories SNOMED: 914233433 Status: stable, progressing, tolerating diet Assessment/Plan ot [pt diet pain control abx cbc bmp in am dc plan Subjective Constitutional: Reports: weakness Allergies: Coded Allergies: KETOROLAC (Verified Allergy, Severe, 08/06/16) ASPIRIN (Verified Allergy, Intermediate, 08/06/16) CEPHALEXIN (Verified Allergy, Mild, 12/13/14) FISH DERIVED (Unverified Allergy, Unknown, 08/29/16) PEANUT (Verified Allergy, Unknown, 11/19/15) Uncoded Allergies: fish (Allergy, Unknown, 08/12/16) All Systems: reviewed and negative except above Subjective weak in wc in [place] Objective Last 24 Hour Vital Signs Date Time Temp Pulse Resp B/P (MAP) Pulse Ox O2 Delivery O2 Flow Rate FiO2 12/09/16 12:35 97.3 96 18 113/60 95 Room Air 12/09/16 08:28 142/89 12/09/16 08:26 89 142/89 12/09/16 08:17 89 16 Room Air 12/09/16 08:05 97.0 84 20 142/89 97 Room Air 12/09/16 04:00 97.7 97 22 112/76 96 Room Air 12/09/16 00:00 97.7 93 23 123/60 94 Room Air 12/08/16 22:03 97.9 12/08/16 22:03 97.9 12/08/16 19:30 88 16 Room Air 21 12/08/16 19:00 97.9 90 22 138/87 95 Room Air 12/08/16 16:00 88 12/08/16 15:50 97.3 96 18 123/64 100 Room Air Intake and Output 12/09/16 12/10/16 19:00 07:00 Intake Total 110 ml Balance 110 ml IV Total 110 ml # Bowel Movements 1 Laboratory Tests 12/09/16 08:45: White Blood Count 14.0H, Red Blood Count 4.51L, Hemoglobin 14.2, Hematocrit 41.6L, Mean Corpuscular Volume 92, Mean Corpuscular Hemoglobin 31.6H, Mean Corpuscular Hemoglobin Concent 34.2, Red Cell Distribution Width 12.3, Platelet Count 303, Mean Platelet Volume 7.4, Neutrophils (%) (Auto) , Lymphocytes (%) ( Auto) , Monocytes (%) (Auto) , Eosinophils (%) (Auto) , Basophils (%) (Auto) , Differential Total Cells Counted 100, Neutrophils % (Manual) 86H, Lymphocytes % (Manual) 12L, Monocytes % (Manual) 2, Eosinophils % (Manual) 0, Basophils % ( Manual) 0, Band Neutrophils 0, Platelet Estimate Adequate, Platelet Morphology Normal, Red Blood Cell Morphology Normal, Sodium Level 128L, Potassium Level 4.6 , Chloride Level 95L, Carbon Dioxide Level 22, Anion Gap 11, Blood Urea Nitrogen 18, Creatinine 1.1, Estimat Glomerular Filtration Rate > 60, Glucose Level 339H, Calcium Level 9.2 Height (Feet): 5 Height (Inches): 10.00 Weight (Pounds): 330 General Appearance: alert EENT: normal ENT inspection Neck: normal alignment Cardiovascular: normal peripheral pulses, normal rate, regular rhythm Respiratory/Chest: chest wall non-tender, lungs clear, normal breath sounds Abdomen: normal bowel sounds, non tender, soft Extremities: normal inspection Edema: no edema noted Arm (L), no edema noted Arm (R), no edema noted Leg (L), no edema noted Leg (R), no edema noted Pedal (L), no edema noted Pedal (R), no edema noted Generalized Neurologic: responsive, motor weakness Skin: normal pigmentation, warm/dry MARQUEZ FOY Dec 09, 2016 14:52
--- NOTE | 2016-12-09 17:11 | General Progress Note ---
Assessment/Plan Assessment/Plan ASSESSMENT AND RECOMMENDATIONS: 1. Osteosarcoma, no diagnosis proven in the past. Continue to closely monitor. Will obtain prior records and imaging and review them. 2. Anemia secondary to chronic disease. Counts currently within normal limits 3. Leukocytosis, likely secondary to reactive process. 4. Elevated blood sugar. Continue to monitor. 5. Sepsis with an elevated lactate at 2.9. Continue to monitor. 6. Hepatitis C. 7. Morbid obesity. 8. Seizure disorder. Subjective Constitutional: Reports: no symptoms HEENT: Reports: no symptoms Cardiovascular: Reports: no symptoms Respiratory: Reports: no symptoms Gastrointestinal/Abdominal: Reports: no symptoms Genitourinary: Reports: no symptoms 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: Reports: no symptoms Endocrine: Reports: no symptoms Hematologic/Lymphatic: Reports: no symptoms Allergies: Coded Allergies: KETOROLAC (Verified Allergy, Severe, 08/06/16) ASPIRIN (Verified Allergy, Intermediate, 08/06/16) CEPHALEXIN (Verified Allergy, Mild, 12/13/14) FISH DERIVED (Unverified Allergy, Unknown, 08/29/16) PEANUT (Verified Allergy, Unknown, 11/19/15) Uncoded Allergies: fish (Allergy, Unknown, 08/12/16) Subjective complaining of body pain Objective Last 24 Hour Vital Signs Date Time Temp Pulse Resp B/P (MAP) Pulse Ox O2 Delivery O2 Flow Rate FiO2 12/09/16 12:35 97.3 96 18 113/60 95 Room Air 12/09/16 08:28 142/89 12/09/16 08:26 89 142/89 12/09/16 08:17 89 16 Room Air 12/09/16 08:05 97.0 84 20 142/89 97 Room Air 12/09/16 04:00 97.7 97 22 112/76 96 Room Air 12/09/16 00:00 97.7 93 23 123/60 94 Room Air 12/08/16 22:03 97.9 12/08/16 22:03 97.9 12/08/16 19:30 88 16 Room Air 21 12/08/16 19:00 97.9 90 22 138/87 95 Room Air Intake and Output 12/09/16 12/10/16 18:59 06:59 Intake Total 110 ml Balance 110 ml IV Total 110 ml # Bowel Movements 1 Laboratory Tests 12/09/16 08:45: White Blood Count 14.0H, Red Blood Count 4.51L, Hemoglobin 14.2, Hematocrit 41.6L, Mean Corpuscular Volume 92, Mean Corpuscular Hemoglobin 31.6H, Mean Corpuscular Hemoglobin Concent 34.2, Red Cell Distribution Width 12.3, Platelet Count 303, Mean Platelet Volume 7.4, Neutrophils (%) (Auto) , Lymphocytes (%) ( Auto) , Monocytes (%) (Auto) , Eosinophils (%) (Auto) , Basophils (%) (Auto) , Differential Total Cells Counted 100, Neutrophils % (Manual) 86H, Lymphocytes % (Manual) 12L, Monocytes % (Manual) 2, Eosinophils % (Manual) 0, Basophils % ( Manual) 0, Band Neutrophils 0, Platelet Estimate Adequate, Platelet Morphology Normal, Red Blood Cell Morphology Normal, Sodium Level 128L, Potassium Level 4.6 , Chloride Level 95L, Carbon Dioxide Level 22, Anion Gap 11, Blood Urea Nitrogen 18, Creatinine 1.1, Estimat Glomerular Filtration Rate > 60, Glucose Level 339H, Calcium Level 9.2 Height (Feet): 5 Height (Inches): 10.00 Weight (Pounds): 330 General Appearance: no apparent distress EENT: normal ENT inspection Neck: normal inspection Respiratory/Chest: no accessory muscle use Extremities: normal range of motion Neurologic: keeper head II-XII grossly normal Skin: warm/dry Bin Abbott Dec 09, 2016 17:11
--- NOTE | 2016-12-09 17:49 | Infectious Diseases Prog Note ---
Assessment/Plan Problems: (1) COPD (chronic obstructive pulmonary disease) Assessment & Plan: with acute exacerbation , continue ceftriaxone and Zithromax empirically, with inhalers and oxygen, taper steroids since his WBC is going up (2) N&V (nausea and vomiting) Assessment & Plan: suspect gastritis , continue supportive care (3) Osteosarcoma of femur Assessment & Plan: S/P radiation, and chemo, further management as per oncology (4) Diarrhea in adult patient Assessment & Plan: stool for C diff is negative will stop metronidazole empirically Subjective Constitutional: Reports: no symptoms HEENT: Reports: no symptoms Respiratory: Reports: productive cough Breasts: Reports: no symptoms Cardiovascular: Reports: no symptoms Gastrointestinal/Abdominal: Reports: no symptoms Genitourinary: Reports: no symptoms Neurologic: Reports: no symptoms Psychiatric: Reports: depression Skin: Reports: ulcer Endocrine: Reports: no symptoms Musculoskeletal: Reports: pain Allergies: Coded Allergies: KETOROLAC (Verified Allergy, Severe, 08/06/16) ASPIRIN (Verified Allergy, Intermediate, 08/06/16) CEPHALEXIN (Verified Allergy, Mild, 12/13/14) FISH DERIVED (Unverified Allergy, Unknown, 08/29/16) PEANUT (Verified Allergy, Unknown, 11/19/15) Uncoded Allergies: fish (Allergy, Unknown, 08/12/16) Objective Vital Signs Last 24 Hour Vital Signs Date Time Temp Pulse Resp B/P (MAP) Pulse Ox O2 Delivery O2 Flow Rate FiO2 12/09/16 16:00 97.9 86 18 132/73 94 Room Air 12/09/16 12:35 97.3 96 18 113/60 95 Room Air 12/09/16 08:28 142/89 12/09/16 08:26 89 142/89 12/09/16 08:17 89 16 Room Air 12/09/16 08:05 97.0 84 20 142/89 97 Room Air 12/09/16 04:00 97.7 97 22 112/76 96 Room Air 12/09/16 00:00 97.7 93 23 123/60 94 Room Air 12/08/16 22:03 97.9 12/08/16 22:03 97.9 12/08/16 19:30 88 16 Room Air 21 12/08/16 19:00 97.9 90 22 138/87 95 Room Air Height (Feet): 5 Height (Inches): 10.00 Weight (Pounds): 330 General Appearance: WD/WN, no acute distress HEENT: normocephalic, atraumatic, anicteric, mucous membranes moist Respiratory/Chest: chest wall non-tender, normal breath sounds, no respiratory distress, no accessory muscle use, decreased breath sounds, expiratory wheezing Cardiovascular: normal peripheral pulses, normal rate, regular rhythm, no gallop/murmur, no JVD Abdomen: normal bowel sounds, soft, non tender, no organomegaly, non distended , no mass, no scars Extremities: no cyanosis, no clubbing Skin: no rash, no lesions, no ulcers 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: alert, oriented x 3 Microbiology Date/Time Source Procedure Growth Status 12/07/16 11:55 Blood Blood Culture - Preliminary NO GROWTH AFTER 24 HOURS Resulted 12/07/16 11:40 Blood Blood Culture - Preliminary NO GROWTH AFTER 24 HOURS Resulted 12/08/16 17:00 Stool Clostridium difficile Toxin Assay - Final Complete Laboratory Tests Test 12/09/16 08:45 White Blood Count 14.0 K/UL (4.8-10.8) H Red Blood Count 4.51 M/UL (4.70-6.10) L Hemoglobin 14.2 G/DL (14.2-18.0) Hematocrit 41.6 % (42.0-52.0) L Mean Corpuscular Volume 92 FL (80-99) Mean Corpuscular Hemoglobin 31.6 PG (27.0-31.0) H Mean Corpuscular Hemoglobin Concent 34.2 G/DL (32.0-36.0) Red Cell Distribution Width 12.3 % (11.6-14.8) Platelet Count 303 K/UL (150-450) Mean Platelet Volume 7.4 FL (6.5-10.1) Neutrophils (%) (Auto) % (45.0-75.0) Lymphocytes (%) (Auto) % (20.0-45.0) Monocytes (%) (Auto) % (1.0-10.0) Eosinophils (%) (Auto) % (0.0-3.0) Basophils (%) (Auto) % (0.0-2.0) Differential Total Cells Counted 100 Neutrophils % (Manual) 86 % (45-75) H Lymphocytes % (Manual) 12 % (20-45) L Monocytes % (Manual) 2 % (1-10) Eosinophils % (Manual) 0 % (0-3) Basophils % (Manual) 0 % (0-2) Band Neutrophils 0 % (0-8) Platelet Estimate Adequate Platelet Morphology Normal Red Blood Cell Morphology Normal Sodium Level 128 MMOL/L (136-145) L Potassium Level 4.6 MMOL/L (3.5-5.1) Chloride Level 95 MMOL/L (98-107) L Carbon Dioxide Level 22 MMOL/L (21-32) Anion Gap 11 (5-15) Blood Urea Nitrogen 18 mg/dL (7-18) Creatinine 1.1 MG/DL (0.55-1.30) Estimat Glomerular Filtration Rate > 60 mL/min (>60) Glucose Level 339 MG/DL (74-106) H Calcium Level 9.2 MG/DL (8.5-10.1) Current Medications Medications (Trade) Dose Ordered Sig/Robert Route PRN Reason Start Time Stop Time Status Last Admin Dose Admin Albuterol/ Ipratropium (DuoNeb 0.5-3(2.5)mg/3ml) 3 ml Q4H PRN HHN dyspnea 12/09/16 07:45 12/12/16 15:44 Amitriptyline HCl (Elavil) 25 mg BEDTIME ORAL 12/09/16 21:00 01/06/17 20:59 Amlodipine Besylate (Norvasc) 10 mg DAILY ORAL 12/09/16 09:00 01/07/17 08:59 12/09/16 08:26 Azithromycin (Zithromax) 250 mg DAILY ORAL 12/09/16 09:00 12/14/16 15:59 12/09/16 08:26 Carbamazepine (TEGretol) 300 mg Q12HR ORAL 12/09/16 09:00 01/06/17 20:59 12/09/16 08:27 Ceftriaxone Sodium 2 gm/ Dextrose 110 ml @ 220 mls/hr Q24H IVPB 12/09/16 12:00 12/15/16 11:59 12/09/16 12:12 Dextrose (Dextrose 50%) STAT PRN IV Hypoglycemia 12/09/16 15:45 01/06/17 15:44 Divalproex Sodium (Depakote ER) 1,000 mg EVERY 12 HOURS ORAL 12/09/16 09:00 01/06/17 20:59 12/09/16 08:26 Fentanyl (Duragesic) 1 patch Q72H TDERMAL 12/11/16 18:00 12/15/16 17:59 Heparin Sodium (Porcine) (Heparin 5000 units/ml) 5,000 units EVERY 12 HOURS SUBQ 12/09/16 09:00 01/06/17 20:59 12/09/16 08:29 Hydromorphone HCl (Dilaudid) 2 mg Q4H PRN IVP severe breakthrough pain 12/09/16 06:45 12/15/16 14:44 12/09/16 17:32 Lisinopril (Prinivil) 20 mg DAILY ORAL 12/09/16 09:00 01/08/17 08:59 12/09/16 08:28 Lorazepam (Ativan) 2 mg Q8H PRN ORAL Agitation 12/09/16 12:30 12/16/16 12:29 12/09/16 13:37 Methylprednisolone Sodium Succinate (Solu-MEDROL) 60 mg EVERY 6 HOURS IV 12/09/16 12:00 01/06/17 17:59 12/09/16 17:32 Metronidazole (Flagyl) 500 mg Q8HR ORAL 12/09/16 14:00 12/14/16 15:59 12/09/16 14:51 Miscellaneous Medication (fentaNYL Destruction) 1 ea Q72H MISC 12/11/16 18:00 01/07/17 17:59 Morphine Sulfate (Morphine Sulfate) 4 mg Q4H PRN IVP severe pain 7-10 12/09/16 09:00 12/14/16 16:59 12/09/16 15:33 Naloxone HCl (Narcan) 0.1 mg PRN IV Sedation scale 3 or 4 12/09/16 06:15 01/07/17 14:44 Nitroglycerin (Ntg) 0.4 mg Q5M X 3 DOSES PRN SL Prn Chest Pain 12/09/16 06:15 01/06/17 15:44 Ondansetron HCl (Zofran) 4 mg Q6H PRN IVP Nausea & Vomiting 12/09/16 09:45 01/06/17 15:44 Oxycodone HCl (Roxicodone) 10 mg Q6H PRN ORAL moderate Breakthrough Pain 12/09/16 08:45 12/15/16 14:44 Phenytoin (Dilantin) 250 mg DAILY ORAL 12/09/16 09:00 01/07/17 08:59 12/09/16 08:25 Promethazine HCl/ Codeine (Phenergan with Codeine) 5 ml Q6H PRN ORAL cough 12/09/16 09:45 01/06/17 15:44 Quetiapine Fumarate (SEROquel) 100 mg BEDTIME ORAL 12/09/16 21:00 01/08/17 20:59 Temazepam (Restoril) 15 mg HSPRN PRN ORAL Insomnia 12/09/16 15:45 12/14/16 15:44 Uri Tesfaye M.D. Dec 09, 2016 17:49
--- NOTE | 2016-12-09 18:46 | Consultation ---
DATE OF CONSULTATION: 12/08/2016 HISTORY OF PRESENT ILLNESS: The patient is a 41-year-old obese male with a history of multiple medical problems, PTSD on pain medication dependence, cluster B personality disorder who has been admitted to the hospital. He came in for COPD, shortness of breath and chronic pain. The patient during the evaluation stated he is anxious and agitated. He is medications being changed and has not been doing well. The patient is only willing to take Seroquel as well as Ativan. He does not endorse any suicidal or homicidal ideation. No manic or psychotic symptoms. PAST PSYCHIATRIC HISTORY: He has a history of PTSD, depression, and anxiety. No suicide attempt in the past. PAST MEDICAL HISTORY: COPD, chronic pain, obesity and glaucoma. ALLERGIES: Keflex, aspirin, and ketorolac. SUBSTANCE ABUSE HISTORY: The patient has dependence to pain medication. Unknown of other illicit drug use or alcohol. MENTAL STATUS EXAMINATION: The patient is alert and oriented x4. Cooperative with exam. Mood is euthymic. Affect is full range, congruent with mood and appropriate. Thought process is linear. Thought content, no suicidal or homicidal ideation. No delusions. No auditory or visual hallucinations. Cognition is intact. Insight and judgment fair. ASSESSMENT: AXIS I Posttraumatic stress disorder. AXIS II Deferred. AXIS III Obesity. AXIS IV Low. AXIS V Global assessment of functioning is 25. PLAN: 1. The patient will be started on Seroquel. 2. Discontinue Prozac. 3. Start the patient on Seroquel 100 mg. he would like to take 100 mg, however, we will taper it gradually. 4. Ativan 2 mg p.r.n. Bret Manuel M.D. DR: CINDI JOB#: [id number] CC:
--- NOTE | 2016-12-09 18:54 | Pulmonology Progress Note ---
Assessment/Plan Problems: (1) COPD exacerbation (2) Seizure (3) Psychiatric disorder (4) Hepatitis C (5) GERD (gastroesophageal reflux disease) Assessment/Plan improving respiratory treatment symptoamtic treatment dc planning Subjective ROS Limited/Unobtainable: No Constitutional: Reports: no symptoms HEENT: Repors: no symptoms Allergies: Coded Allergies: KETOROLAC (Verified Allergy, Severe, 08/06/16) ASPIRIN (Verified Allergy, Intermediate, 08/06/16) CEPHALEXIN (Verified Allergy, Mild, 12/13/14) FISH DERIVED (Unverified Allergy, Unknown, 08/29/16) PEANUT (Verified Allergy, Unknown, 11/19/15) Uncoded Allergies: fish (Allergy, Unknown, 08/12/16) Objective Last 24 Hour Vital Signs Date Time Temp Pulse Resp B/P (MAP) Pulse Ox O2 Delivery O2 Flow Rate FiO2 12/09/16 16:00 97.9 86 18 132/73 94 Room Air 12/09/16 12:35 97.3 96 18 113/60 95 Room Air 12/09/16 08:28 142/89 12/09/16 08:26 89 142/89 12/09/16 08:17 89 16 Room Air 21 12/09/16 08:05 97.0 84 20 142/89 97 Room Air 12/09/16 04:00 97.7 97 22 112/76 96 Room Air 12/09/16 00:00 97.7 93 23 123/60 94 Room Air 12/08/16 22:03 97.9 12/08/16 22:03 97.9 12/08/16 19:30 88 16 Room Air 21 12/08/16 19:00 97.9 90 22 138/87 95 Room Air Intake and Output 12/09/16 12/10/16 19:00 07:00 Intake Total 110 ml Balance 110 ml IV Total 110 ml # Bowel Movements 1 General Appearance: WD/WN, no acute distress HEENT: normocephalic Respiratory/Chest: chest wall non-tender, lungs clear Abdomen: normal bowel sounds, soft, non tender Genitourinary: normal external genitalia Skin: no rash, no ulcers Microbiology Date/Time Source Procedure Growth Status 12/07/16 11:55 Blood Blood Culture - Preliminary NO GROWTH AFTER 24 HOURS Resulted 12/07/16 11:40 Blood Blood Culture - Preliminary NO GROWTH AFTER 24 HOURS Resulted 12/08/16 17:00 Stool Clostridium difficile Toxin Assay - Final Complete Laboratory Tests 12/09/16 08:45: White Blood Count 14.0H, Red Blood Count 4.51L, Hemoglobin 14.2, Hematocrit 41.6L, Mean Corpuscular Volume 92, Mean Corpuscular Hemoglobin 31.6H, Mean Corpuscular Hemoglobin Concent 34.2, Red Cell Distribution Width 12.3, Platelet Count 303, Mean Platelet Volume 7.4, Neutrophils (%) (Auto) , Lymphocytes (%) ( Auto) , Monocytes (%) (Auto) , Eosinophils (%) (Auto) , Basophils (%) (Auto) , Differential Total Cells Counted 100, Neutrophils % (Manual) 86H, Lymphocytes % (Manual) 12L, Monocytes % (Manual) 2, Eosinophils % (Manual) 0, Basophils % ( Manual) 0, Band Neutrophils 0, Platelet Estimate Adequate, Platelet Morphology Normal, Red Blood Cell Morphology Normal, Sodium Level 128L, Potassium Level 4.6 , Chloride Level 95L, Carbon Dioxide Level 22, Anion Gap 11, Blood Urea Nitrogen 18, Creatinine 1.1, Estimat Glomerular Filtration Rate > 60, Glucose Level 339H, Calcium Level 9.2 Current Medications Medications (Trade) Dose Ordered Sig/Robert Route PRN Reason Start Time Stop Time Status Last Admin Dose Admin Albuterol/ Ipratropium (DuoNeb 0.5-3(2.5)mg/3ml) 3 ml Q4H PRN HHN dyspnea 12/09/16 07:45 12/12/16 15:44 Amitriptyline HCl (Elavil) 25 mg BEDTIME ORAL 12/09/16 21:00 01/06/17 20:59 Amlodipine Besylate (Norvasc) 10 mg DAILY ORAL 12/09/16 09:00 01/07/17 08:59 12/09/16 08:26 Azithromycin (Zithromax) 250 mg DAILY ORAL 12/09/16 09:00 12/14/16 15:59 12/09/16 08:26 Carbamazepine (TEGretol) 300 mg Q12HR ORAL 12/09/16 09:00 01/06/17 20:59 12/09/16 08:27 Ceftriaxone Sodium 2 gm/ Dextrose 110 ml @ 220 mls/hr Q24H IVPB 12/09/16 12:00 12/15/16 11:59 12/09/16 12:12 Dextrose (Dextrose 50%) STAT PRN IV Hypoglycemia 12/09/16 15:45 01/06/17 15:44 Divalproex Sodium (Depakote ER) 1,000 mg EVERY 12 HOURS ORAL 12/09/16 09:00 01/06/17 20:59 12/09/16 08:26 Fentanyl (Duragesic) 1 patch Q72H TDERMAL 12/11/16 18:00 12/15/16 17:59 Heparin Sodium (Porcine) (Heparin 5000 units/ml) 5,000 units EVERY 12 HOURS SUBQ 12/09/16 09:00 01/06/17 20:59 12/09/16 08:29 Hydromorphone HCl (Dilaudid) 2 mg Q4H PRN IVP severe breakthrough pain 12/09/16 06:45 12/15/16 14:44 12/09/16 17:32 Lisinopril (Prinivil) 20 mg DAILY ORAL 12/09/16 09:00 01/08/17 08:59 12/09/16 08:28 Lorazepam (Ativan) 2 mg Q8H PRN ORAL Agitation 12/09/16 12:30 12/16/16 12:29 12/09/16 13:37 Methylprednisolone Sodium Succinate (Solu-MEDROL) 60 mg EVERY 6 HOURS IV 12/09/16 12:00 01/06/17 17:59 12/09/16 17:32 Metronidazole (Flagyl) 500 mg Q8HR ORAL 12/09/16 14:00 12/14/16 15:59 12/09/16 14:51 Miscellaneous Medication (fentaNYL Destruction) 1 ea Q72H MISC 12/11/16 18:00 01/07/17 17:59 Morphine Sulfate (Morphine Sulfate) 4 mg Q4H PRN IVP severe pain 7-10 12/09/16 09:00 12/14/16 16:59 12/09/16 15:33 Naloxone HCl (Narcan) 0.1 mg PRN IV Sedation scale 3 or 4 12/09/16 06:15 01/07/17 14:44 Nitroglycerin (Ntg) 0.4 mg Q5M X 3 DOSES PRN SL Prn Chest Pain 12/09/16 06:15 01/06/17 15:44 Ondansetron HCl (Zofran) 4 mg Q6H PRN IVP Nausea & Vomiting 12/09/16 09:45 01/06/17 15:44 Oxycodone HCl (Roxicodone) 10 mg Q6H PRN ORAL moderate Breakthrough Pain 12/09/16 08:45 12/15/16 14:44 Phenytoin (Dilantin) 250 mg DAILY ORAL 12/09/16 09:00 01/07/17 08:59 12/09/16 08:25 Promethazine HCl/ Codeine (Phenergan with Codeine) 5 ml Q6H PRN ORAL cough 12/09/16 09:45 01/06/17 15:44 Quetiapine Fumarate (SEROquel) 100 mg BEDTIME ORAL 12/09/16 21:00 01/08/17 20:59 Temazepam (Restoril) 15 mg HSPRN PRN ORAL Insomnia 12/09/16 15:45 12/14/16 15:44 LAUREN OCHOA Dec 09, 2016 18:54
[2016-12-09] MEDS ORDERED: TraZODone 100mg tab ORAL SCH (21:00)
[2016-12-10] MEDS: Morphine Sulfate 4mg/ml Inj IVP PRN ×3 (01:51→20:06)
[2016-12-10 04:15] VITALS: BP 130/82
[2016-12-10] MEDS: Solu-MEDROL 125mg Inj IV SCH ×2 (05:57→12:00)
[2016-12-10 08:00] VITALS: BP 114/80
[2016-12-10] MEDS: Depakote ER 500mg tab ORAL SCH ×2 (08:22→20:56)
[2016-12-10] MEDS: Azithromycin 250mg tab ORAL SCH (08:24)
[2016-12-10] MEDS: Lisinopril 20mg tab ORAL SCH (08:24)
[2016-12-10] MEDS: carBAMazepine 200mg tab ORAL SCH ×2 (08:24→20:58)
[2016-12-10] MEDS: Phenytoin Susp 100mg/4ml ORAL SCH (08:26)
[2016-12-10] MEDS: Heparin 5000 units/ml inj SUBQ SCH ×2 (08:27→21:06)
[2016-12-10 12:00] VITALS: BP 113/64
[2016-12-10] MEDS: cefTRIAXone 2 GM in D5W 110 ML IVPB SCH (12:00)
--- NOTE | 2016-12-10 14:21 | General Progress Note ---
Assessment/Plan Problem List: (1) COPD exacerbation ICD Codes: J44.1 - Chronic obstructive pulmonary disease with (acute) exacerbation SNOMED: 906059455, 054900956 (2) Leukocytosis ICD Codes: D72.829 - Elevated white blood cell count, unspecified SNOMED: 691648360, 654086742 (3) Chronic pain ICD Codes: G89.29 - Other chronic pain SNOMED: 79164284 (4) Morbid obesity ICD Codes: E66.01 - Morbid (severe) obesity due to excess calories SNOMED: 657626116 Status: stable, progressing, tolerating diet Assessment/Plan ot [pt diet pain control abx cbc bmp in am dc to snf Subjective Constitutional: Reports: weakness Allergies: Coded Allergies: KETOROLAC (Verified Allergy, Severe, 08/06/16) ASPIRIN (Verified Allergy, Intermediate, 08/06/16) CEPHALEXIN (Verified Allergy, Mild, 12/13/14) FISH DERIVED (Unverified Allergy, Unknown, 08/29/16) PEANUT (Verified Allergy, Unknown, 11/19/15) Uncoded Allergies: fish (Allergy, Unknown, 08/12/16) All Systems: reviewed and negative except above Subjective weak in wc in [place] Objective Last 24 Hour Vital Signs Date Time Temp Pulse Resp B/P (MAP) Pulse Ox O2 Delivery O2 Flow Rate FiO2 12/10/16 12:00 98.7 86 18 113/64 96 Room Air 12/10/16 08:24 114/80 12/10/16 08:20 85 114/80 12/10/16 08:02 79 20 Room Air 21 12/10/16 08:00 96.8 85 114/80 Room Air 12/10/16 04:15 98.0 82 18 130/82 92 Room Air 12/10/16 02:19 97.2 12/09/16 23:24 97.2 12/09/16 20:30 98.2 84 18 135/85 96 Room Air 12/09/16 20:00 97.2 107 24 102/59 99 Nasal Cannula 12/09/16 19:25 84 18 Room Air 21 12/09/16 16:00 97.9 86 18 132/73 94 Room Air Height (Feet): 5 Height (Inches): 10.00 Weight (Pounds): 330 General Appearance: lethargic EENT: normal ENT inspection Neck: normal alignment Cardiovascular: normal peripheral pulses, normal rate, regular rhythm Respiratory/Chest: chest wall non-tender, lungs clear, normal breath sounds Abdomen: normal bowel sounds, non tender, soft Extremities: normal inspection Edema: no edema noted Arm (L), no edema noted Arm (R), no edema noted Leg (L), no edema noted Leg (R), no edema noted Pedal (L), no edema noted Pedal (R), no edema noted Generalized Neurologic: responsive, motor weakness Skin: normal pigmentation, warm/dry MARQUEZ FOY Dec 10, 2016 14:21
[2016-12-10 15:49] VITALS: BP 134/93
--- NOTE | 2016-12-10 16:21 | Infectious Diseases Prog Note ---
Assessment/Plan Problems: (1) COPD (chronic obstructive pulmonary disease) Assessment & Plan: with acute exacerbation , continue ceftriaxone and Zithromax empirically, with inhalers and oxygen, taper steroids since his WBC is going up (2) Osteosarcoma of femur Assessment & Plan: S/P radiation, and chemo, further management as per oncology (3) Diarrhea in adult patient Assessment & Plan: stool for C diff is negative will stop metronidazole empirically, continue supportive care Subjective Constitutional: Reports: no symptoms HEENT: Reports: no symptoms Respiratory: Reports: dry cough Breasts: Reports: no symptoms Cardiovascular: Reports: no symptoms Gastrointestinal/Abdominal: Reports: nausea, diarrhea Genitourinary: Reports: no symptoms Neurologic: Reports: no symptoms Psychiatric: Reports: depression Skin: Reports: ulcer Endocrine: Reports: no symptoms Hematologic: Reports: no symptoms Musculoskeletal: Reports: pain Allergies: Coded Allergies: KETOROLAC (Verified Allergy, Severe, 08/06/16) ASPIRIN (Verified Allergy, Intermediate, 08/06/16) CEPHALEXIN (Verified Allergy, Mild, 12/13/14) FISH DERIVED (Unverified Allergy, Unknown, 08/29/16) PEANUT (Verified Allergy, Unknown, 11/19/15) Uncoded Allergies: fish (Allergy, Unknown, 08/12/16) Objective Vital Signs Last 24 Hour Vital Signs Date Time Temp Pulse Resp B/P (MAP) Pulse Ox O2 Delivery O2 Flow Rate FiO2 12/10/16 15:49 97.7 85 21 134/93 98 Room Air 12/10/16 12:00 98.7 86 18 113/64 96 Room Air 12/10/16 08:24 114/80 12/10/16 08:20 85 114/80 12/10/16 08:02 79 20 Room Air 21 12/10/16 08:00 96.8 85 114/80 Room Air 12/10/16 04:15 98.0 82 18 130/82 92 Room Air 12/10/16 02:19 97.2 12/09/16 23:24 97.2 12/09/16 20:30 98.2 84 18 135/85 96 Room Air 12/09/16 20:00 97.2 107 24 102/59 99 Nasal Cannula 12/09/16 19:25 84 18 Room Air 21 Height (Feet): 5 Height (Inches): 10.00 Weight (Pounds): 330 General Appearance: WD/WN, no acute distress HEENT: normocephalic, atraumatic, anicteric, mucous membranes moist, PERRL, EOMI, pharynx normal, supple, no JVD Respiratory/Chest: chest wall non-tender, no respiratory distress, no accessory muscle use, decreased breath sounds, expiratory wheezing Cardiovascular: normal peripheral pulses, normal rate, regular rhythm, no gallop/murmur, no JVD Abdomen: normal bowel sounds, soft, non tender, no organomegaly, non distended , no mass, no scars Extremities: no cyanosis, no clubbing Skin: no rash, no lesions, ulcers 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: alert, oriented x 3, responsive Lymphatic: no neck adenopathy, no groin adenopathy Microbiology Date/Time Source Procedure Growth Status 12/10/16 02:18 Sputum Expectorated Gram Stain - Final Resulted 12/10/16 02:18 Sputum Expectorated Sputum Culture Pending Resulted 12/08/16 17:00 Stool Clostridium difficile Toxin Assay - Final Complete Current Medications Medications (Trade) Dose Ordered Sig/Robert Route PRN Reason Start Time Stop Time Status Last Admin Dose Admin Albuterol/ Ipratropium (DuoNeb 0.5-3(2.5)mg/3ml) 3 ml Q4H PRN HHN dyspnea 12/09/16 07:45 12/12/16 15:44 Amitriptyline HCl (Elavil) 25 mg BEDTIME ORAL 12/09/16 21:00 01/06/17 20:59 12/09/16 21:30 Amlodipine Besylate (Norvasc) 10 mg DAILY ORAL 12/09/16 09:00 01/07/17 08:59 12/10/16 08:20 Azithromycin (Zithromax) 250 mg DAILY ORAL 12/09/16 09:00 12/14/16 15:59 12/10/16 08:24 Carbamazepine (TEGretol) 300 mg Q12HR ORAL 12/09/16 09:00 01/06/17 20:59 12/10/16 08:24 Ceftriaxone Sodium 2 gm/ Dextrose 110 ml @ 220 mls/hr Q24H IVPB 12/09/16 12:00 12/15/16 11:59 12/09/16 12:12 Dextrose (Dextrose 50%) STAT PRN IV Hypoglycemia 12/09/16 15:45 01/06/17 15:44 Divalproex Sodium (Depakote ER) 1,000 mg EVERY 12 HOURS ORAL 12/09/16 09:00 01/06/17 20:59 12/10/16 08:22 Fentanyl (Duragesic) 1 patch Q72H TDERMAL 12/11/16 18:00 12/15/16 17:59 Heparin Sodium (Porcine) (Heparin 5000 units/ml) 5,000 units EVERY 12 HOURS SUBQ 12/09/16 09:00 01/06/17 20:59 12/10/16 08:27 Hydromorphone HCl (Dilaudid) 2 mg Q4H PRN IVP severe breakthrough pain 12/09/16 06:45 12/15/16 14:44 12/09/16 22:54 Lisinopril (Prinivil) 20 mg DAILY ORAL 12/09/16 09:00 01/08/17 08:59 12/10/16 08:24 Lorazepam (Ativan) 2 mg Q8H PRN ORAL Agitation 12/09/16 12:30 12/16/16 12:29 12/09/16 13:37 Methylprednisolone Sodium Succinate (Solu-MEDROL) 60 mg EVERY 6 HOURS IV 12/09/16 12:00 01/06/17 17:59 12/10/16 05:57 Miscellaneous Medication (fentaNYL Destruction) 1 ea Q72H MISC 12/11/16 18:00 01/07/17 17:59 Morphine Sulfate (Morphine Sulfate) 4 mg Q4H PRN IVP severe pain 7-10 12/09/16 09:00 12/14/16 16:59 12/10/16 16:08 Naloxone HCl (Narcan) 0.1 mg PRN IV Sedation scale 3 or 4 12/09/16 06:15 01/07/17 14:44 Nitroglycerin (Ntg) 0.4 mg Q5M X 3 DOSES PRN SL Prn Chest Pain 12/09/16 06:15 01/06/17 15:44 Ondansetron HCl (Zofran) 4 mg Q6H PRN IVP Nausea & Vomiting 12/09/16 09:45 01/06/17 15:44 Oxycodone HCl (Roxicodone) 10 mg Q6H PRN ORAL moderate Breakthrough Pain 12/09/16 08:45 12/15/16 14:44 Phenytoin (Dilantin) 250 mg DAILY ORAL 12/09/16 09:00 01/07/17 08:59 12/10/16 08:26 Promethazine HCl/ Codeine (Phenergan with Codeine) 5 ml Q6H PRN ORAL cough 12/09/16 09:45 01/06/17 15:44 Quetiapine Fumarate (SEROquel) 100 mg BEDTIME ORAL 12/09/16 21:00 01/08/17 20:59 12/09/16 21:29 Temazepam (Restoril) 15 mg HSPRN PRN ORAL Insomnia 12/09/16 15:45 12/14/16 15:44 Uri Tesfaye M.D. Dec 10, 2016 16:21
--- NOTE | 2016-12-10 17:37 | Pulmonology Progress Note ---
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) RLL open wound chronic pain syndrome seizure disorder HTN hep C psychiatric disorder anemia of chronic disease morbid obesity GERD diarrhea PTSD lactic acidosis PLAN OF CARE MS floor O2 HHN taper steroids empiric abx sputum cx a/tussive prn CXR no acute cardiopulmonary pathology wound care as per wound nurse recommendations pain management pain specialist follows seizure precautions continue Tegretol, Dilantin, Topamax, Depakote BP management with CCB and CHANCE, optimize as needed psych follows optimized psych medication regimen onco follows PT/OT DVT prophylaxis monitor counts, remain at baseline stool C dif negative, off Flagyl case discussed and evaluated by supervising physician taper steroids 1L NS for low Na Subjective Allergies: Coded Allergies: KETOROLAC (Verified Allergy, Severe, 08/06/16) ASPIRIN (Verified Allergy, Intermediate, 08/06/16) CEPHALEXIN (Verified Allergy, Mild, 12/13/14) FISH DERIVED (Unverified Allergy, Unknown, 08/29/16) PEANUT (Verified Allergy, Unknown, 11/19/15) Uncoded Allergies: fish (Allergy, Unknown, 08/12/16) Subjective reports SOB, chest tightness, but no chest pain, + cough, dry, no hemoptysis afebrile, no leukocytosis Objective Last 24 Hour Vital Signs Date Time Temp Pulse Resp B/P (MAP) Pulse Ox O2 Delivery O2 Flow Rate FiO2 12/10/16 15:49 97.7 85 21 134/93 98 Room Air 12/10/16 12:00 98.7 86 18 113/64 96 Room Air 12/10/16 08:24 114/80 12/10/16 08:20 85 114/80 12/10/16 08:02 79 20 Room Air 21 12/10/16 08:00 96.8 85 114/80 Room Air 12/10/16 04:15 98.0 82 18 130/82 92 Room Air 12/10/16 02:19 97.2 12/09/16 23:24 97.2 12/09/16 20:30 98.2 84 18 135/85 96 Room Air 12/09/16 20:00 97.2 107 24 102/59 99 Nasal Cannula 12/09/16 19:25 84 18 Room Air 21 General Appearance: no acute distress, other - morbidly obese male HEENT: normocephalic, atraumatic, anicteric, mucous membranes moist Respiratory/Chest: decreased breath sounds Cardiovascular: normal rate, regular rhythm, no JVD Abdomen: normal bowel sounds, soft, non tender - obese Skin: other - RLL open wound 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: no motor/sensory deficits, alert, oriented x 3, responsive Musculoskeletal: normal muscle bulk Microbiology Date/Time Source Procedure Growth Status 12/10/16 02:18 Sputum Expectorated Gram Stain - Final Resulted 12/10/16 02:18 Sputum Expectorated Sputum Culture Pending Resulted 12/08/16 17:00 Stool Clostridium difficile Toxin Assay - Final Complete Current Medications Medications (Trade) Dose Ordered Sig/Robert Route PRN Reason Start Time Stop Time Status Last Admin Dose Admin Albuterol/ Ipratropium (DuoNeb 0.5-3(2.5)mg/3ml) 3 ml Q4H PRN HHN dyspnea 12/09/16 07:45 12/12/16 15:44 Amitriptyline HCl (Elavil) 25 mg BEDTIME ORAL 12/09/16 21:00 01/06/17 20:59 12/09/16 21:30 Amlodipine Besylate (Norvasc) 10 mg DAILY ORAL 12/09/16 09:00 01/07/17 08:59 12/10/16 08:20 Azithromycin (Zithromax) 250 mg DAILY ORAL 12/09/16 09:00 12/14/16 15:59 12/10/16 08:24 Carbamazepine (TEGretol) 300 mg Q12HR ORAL 12/09/16 09:00 01/06/17 20:59 12/10/16 08:24 Ceftriaxone Sodium 2 gm/ Dextrose 110 ml @ 220 mls/hr Q24H IVPB 12/09/16 12:00 12/15/16 11:59 12/09/16 12:12 Dextrose (Dextrose 50%) STAT PRN IV Hypoglycemia 12/09/16 15:45 01/06/17 15:44 Divalproex Sodium (Depakote ER) 1,000 mg EVERY 12 HOURS ORAL 12/09/16 09:00 01/06/17 20:59 12/10/16 08:22 Fentanyl (Duragesic) 1 patch Q72H TDERMAL 12/11/16 18:00 12/15/16 17:59 Heparin Sodium (Porcine) (Heparin 5000 units/ml) 5,000 units EVERY 12 HOURS SUBQ 12/09/16 09:00 01/06/17 20:59 12/10/16 08:27 Hydromorphone HCl (Dilaudid) 2 mg Q4H PRN IVP severe breakthrough pain 12/09/16 06:45 12/15/16 14:44 12/10/16 17:24 Lisinopril (Prinivil) 20 mg DAILY ORAL 12/09/16 09:00 01/08/17 08:59 12/10/16 08:24 Lorazepam (Ativan) 2 mg Q8H PRN ORAL Agitation 12/09/16 12:30 12/16/16 12:29 12/09/16 13:37 Methylprednisolone Sodium Succinate (Solu-MEDROL) 60 mg EVERY 6 HOURS IV 12/09/16 12:00 01/06/17 17:59 12/10/16 05:57 Miscellaneous Medication (fentaNYL Destruction) 1 ea Q72H MISC 12/11/16 18:00 01/07/17 17:59 Morphine Sulfate (Morphine Sulfate) 4 mg Q4H PRN IVP severe pain 7-10 12/09/16 09:00 12/14/16 16:59 12/10/16 16:08 Naloxone HCl (Narcan) 0.1 mg PRN IV Sedation scale 3 or 4 12/09/16 06:15 01/07/17 14:44 Nitroglycerin (Ntg) 0.4 mg Q5M X 3 DOSES PRN SL Prn Chest Pain 12/09/16 06:15 01/06/17 15:44 Ondansetron HCl (Zofran) 4 mg Q6H PRN IVP Nausea & Vomiting 12/09/16 09:45 01/06/17 15:44 Oxycodone HCl (Roxicodone) 10 mg Q6H PRN ORAL moderate Breakthrough Pain 12/09/16 08:45 12/15/16 14:44 Phenytoin (Dilantin) 250 mg DAILY ORAL 12/09/16 09:00 01/07/17 08:59 12/10/16 08:26 Promethazine HCl/ Codeine (Phenergan with Codeine) 5 ml Q6H PRN ORAL cough 12/09/16 09:45 01/06/17 15:44 Quetiapine Fumarate (SEROquel) 100 mg BEDTIME ORAL 12/09/16 21:00 01/08/17 20:59 12/09/16 21:29 Temazepam (Restoril) 15 mg HSPRN PRN ORAL Insomnia 12/09/16 15:45 12/14/16 15:44 [facility] HospitalAlmita Michelle NP Dec 10, 2016 17:37
[2016-12-10 20:00] VITALS: BP 124/65
--- NOTE | 2016-12-10 20:05 | General Progress Note ---
Assessment/Plan Assessment/Plan ASSESSMENT AND RECOMMENDATIONS: 1. Osteosarcoma, s/p radiation and chemotherapy. Continue to closely monitor. Will obtain prior records and imaging and review them. 2. Anemia secondary to chronic disease. Counts currently within normal limits 3. Leukocytosis, likely secondary to reactive process. 4. Elevated blood sugar. Continue to monitor. 5. Sepsis with an elevated lactate at 2.9. Continue to monitor. 6. Hepatitis C. 7. Morbid obesity. 8. Seizure disorder. Subjective Constitutional: Reports: no symptoms HEENT: Reports: no symptoms Cardiovascular: Reports: no symptoms Respiratory: Reports: no symptoms Gastrointestinal/Abdominal: Reports: no symptoms Genitourinary: Reports: no symptoms 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: Reports: no symptoms Endocrine: Reports: no symptoms Hematologic/Lymphatic: Reports: no symptoms Allergies: Coded Allergies: KETOROLAC (Verified Allergy, Severe, 08/06/16) ASPIRIN (Verified Allergy, Intermediate, 08/06/16) CEPHALEXIN (Verified Allergy, Mild, 12/13/14) FISH DERIVED (Unverified Allergy, Unknown, 08/29/16) PEANUT (Verified Allergy, Unknown, 11/19/15) Uncoded Allergies: fish (Allergy, Unknown, 08/12/16) Subjective NAD Objective Last 24 Hour Vital Signs Date Time Temp Pulse Resp B/P (MAP) Pulse Ox O2 Delivery O2 Flow Rate FiO2 12/10/16 15:49 97.7 85 21 134/93 98 Room Air 12/10/16 12:00 98.7 86 18 113/64 96 Room Air 12/10/16 08:24 114/80 12/10/16 08:20 85 114/80 12/10/16 08:02 79 20 Room Air 21 12/10/16 08:00 96.8 85 114/80 Room Air 12/10/16 04:15 98.0 82 18 130/82 92 Room Air 12/10/16 02:19 97.2 12/09/16 23:24 97.2 12/09/16 20:30 98.2 84 18 135/85 96 Room Air Height (Feet): 5 Height (Inches): 10.00 Weight (Pounds): 330 General Appearance: no apparent distress Neck: normal inspection Cardiovascular: no gallop/murmur Respiratory/Chest: no accessory muscle use Abdomen: no mass Extremities: normal range of motion Edema: trace edema Bin Abbott 12, 2017 20:05
[2016-12-10] MEDS ORDERED: Solu-MEDROL 125mg Inj IV SCH (21:00)
[2016-12-10] MEDS ORDERED: Albuterol/Ipratropium 3ml neb HHN PRN (23:41)
[2016-12-11] VITALS (7 sets, daily range): BP systolic 125–148; BP diastolic 53–96
[2016-12-11] MEDS: Morphine Sulfate 4mg/ml Inj IVP PRN ×6 (00:08→20:16)
--- NOTE | 2016-12-11 00:21 | General Progress Note ---
Assessment/Plan Status: stable, progressing Assessment/Plan ptsd seroquel and ativan the pt is reluctant to take any other meds Subjective Constitutional: Reports: malaise, weakness 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: Reports: anxiety, depressed, emotional problems Allergies: Coded Allergies: KETOROLAC (Verified Allergy, Severe, 08/06/16) ASPIRIN (Verified Allergy, Intermediate, 08/06/16) CEPHALEXIN (Verified Allergy, Mild, 12/13/14) FISH DERIVED (Unverified Allergy, Unknown, 08/29/16) PEANUT (Verified Allergy, Unknown, 11/19/15) Uncoded Allergies: fish (Allergy, Unknown, 08/12/16) Subjective the pt is manipulative and stated that he lost his children in a car accident then he stated he lost his . lingering around nursing station and is med seeking. the pt was calmer today less anxious Objective Last 24 Hour Vital Signs Date Time Temp Pulse Resp B/P (MAP) Pulse Ox O2 Delivery O2 Flow Rate FiO2 12/10/16 22:45 97.7 12/10/16 21:12 82 20 Room Air 21 12/10/16 20:36 97.7 12/10/16 20:00 98.1 91 21 124/65 94 Room Air 12/10/16 15:49 97.7 85 21 134/93 98 Room Air 12/10/16 12:00 98.7 86 18 113/64 96 Room Air 12/10/16 08:24 114/80 12/10/16 08:20 85 114/80 12/10/16 08:02 79 20 Room Air 21 12/10/16 08:00 96.8 85 114/80 Room Air 12/10/16 04:15 98.0 82 18 130/82 92 Room Air Height (Feet): 5 Height (Inches): 10.00 Weight (Pounds): 330 General Appearance: no apparent distress, alert, obese Neurologic: alert, oriented x 3, responsive, depressed affect Bret Manuel M.D. Dec 11, 2016 00:21
[2016-12-11] MEDS: LORazepam 1mg tab ORAL PRN (02:55)
[2016-12-11 07:16] LABS: BASOPHILS % (AUTO) 0.5 % (0.0-2.0); EOSINOPHILS % (AUTO) 0.1 % (0.0-3.0); MEAN CORPUSCULAR HEMOGLOBIN 31.1 PG (27.0-31.0); MEAN CORPUSCULAR HGB CONC 33.8 G/DL (32.0-36.0); MEAN CORPUSCULAR VOLUME 92 FL (80-99); MONOCYTES % (AUTO) 5.3 % (1.0-10.0); NEUTROPHILS % (AUTO) 69.1 % (45.0-75.0); PLATELET COUNT 264 K/UL (150-450); RED BLOOD COUNT 4.34 M/UL (4.70-6.10); RED CELL DISTRIBUTION WIDTH 12.1 % (11.6-14.8); WHITE BLOOD COUNT 9.8 K/UL (4.8-10.8)
[2016-12-11 07:44] LABS: ANION GAP 8 (5-15); CALCIUM 8.7 MG/DL (8.5-10.1); CARBON DIOXIDE 25 MMOL/L (21-32); CHLORIDE 98 MMOL/L (98-107); CREATININE 0.8 MG/DL (0.55-1.30); GLOMERULAR FILTRATION RATE > 60 mL/min (>60); POTASSIUM 4.5 MMOL/L (3.5-5.1); SODIUM 131 MMOL/L (136-145)
[2016-12-11] MEDS: Phenytoin Susp 100mg/4ml ORAL SCH (08:11)
[2016-12-11] MEDS: Depakote ER 500mg tab ORAL SCH ×2 (08:12→21:19)
[2016-12-11] MEDS: Lisinopril 20mg tab ORAL SCH (08:12)
[2016-12-11] MEDS: Azithromycin 250mg tab ORAL SCH (08:13)
[2016-12-11] MEDS: carBAMazepine 200mg tab ORAL SCH ×2 (08:13→21:19)
[2016-12-11] MEDS: Heparin 5000 units/ml inj SUBQ SCH ×2 (08:16→22:01)
--- NOTE | 2016-12-11 09:34 | Pulmonology Progress Note ---
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) RLL open wound chronic pain syndrome seizure disorder HTN hep C psychiatric disorder anemia of chronic disease morbid obesity GERD diarrhea PTSD lactic acidosis PLAN OF CARE MS floor O2 HHN taper steroids empiric abx sputum cx a/tussive prn CXR no acute cardiopulmonary pathology wound care as per wound nurse recommendations pain management pain specialist follows seizure precautions continue Tegretol, Dilantin, Topamax, Depakote BP management with [facility]B and [facility], optimize as needed psych follows optimized psych medication regimen onco follows PT/OT DVT prophylaxis monitor counts, remain at baseline stool C dif negative, off Flagyl can be dc from pulmonary standpoint on oral medrol dose pack, case discussed and evaluated by supervising physician taper steroids 1L NS for low Na Subjective Allergies: Coded Allergies: KETOROLAC (Verified Allergy, Severe, 08/06/16) ASPIRIN (Verified Allergy, Intermediate, 08/06/16) CEPHALEXIN (Verified Allergy, Mild, 12/13/14) FISH DERIVED (Unverified Allergy, Unknown, 08/29/16) PEANUT (Verified Allergy, Unknown, 11/19/15) Uncoded Allergies: fish (Allergy, Unknown, 08/12/16) Subjective still reporting SOB with intermittent chest tightness, but no chest pain, + cough, dry, no hemoptysis afebrile, leukocytosis resolved on RA pulse oximetry stable Objective Last 24 Hour Vital Signs Date Time Temp Pulse Resp B/P (MAP) Pulse Ox O2 Delivery O2 Flow Rate FiO2 12/11/16 08:13 91 142/53 12/11/16 08:12 142/53 12/11/16 06:52 98.1 12/11/16 04:57 98.1 91 22 142/53 94 Room Air 12/11/16 04:41 97.7 12/11/16 00:00 97.9 79 21 131/69 94 Room Air 12/10/16 21:12 82 20 Room Air 21 12/10/16 20:00 98.1 91 21 124/65 94 Room Air 12/10/16 15:49 97.7 85 21 134/93 98 Room Air 12/10/16 12:00 98.7 86 18 113/64 96 Room Air Objective General Appearance: no acute distress, other - morbidly obese male HEENT: normocephalic, atraumatic, anicteric, mucous membranes moist Respiratory/Chest: decreased breath sounds Cardiovascular: normal rate, regular rhythm, no JVD Abdomen: normal bowel sounds, soft, non tender - obese Skin: other - RLL open wound 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: no motor/sensory deficits, alert, oriented x 3, responsive Musculoskeletal: normal muscle bulk Microbiology Date/Time Source Procedure Growth Status 12/10/16 02:18 Sputum Expectorated Gram Stain - Final Resulted 12/10/16 02:18 Sputum Expectorated Sputum Culture - Preliminary NORMAL UPPER RESPIRATORY GREGORIA AT 24 ... Resulted 12/08/16 17:00 Stool Clostridium difficile Toxin Assay - Final Complete Laboratory Tests 12/11/16 05:10: White Blood Count 9.8, Red Blood Count 4.34L, Hemoglobin 13.5L, Hematocrit 39.9L , Mean Corpuscular Volume 92, Mean Corpuscular Hemoglobin 31.1H, Mean Corpuscular Hemoglobin Concent 33.8, Red Cell Distribution Width 12.1, Platelet Count 264, Mean Platelet Volume 7.0, Neutrophils (%) (Auto) 69.1, Lymphocytes (% ) (Auto) 25.0, Monocytes (%) (Auto) 5.3, Eosinophils (%) (Auto) 0.1, Basophils ( %) (Auto) 0.5, Sodium Level 131L, Potassium Level 4.5, Chloride Level 98, Carbon Dioxide Level 25, Anion Gap 8, Blood Urea Nitrogen 16, Creatinine 0.8, Estimat Glomerular Filtration Rate > 60, Glucose Level 289H, Calcium Level 8.7 Current Medications Medications (Trade) Dose Ordered Sig/Robert Route PRN Reason Start Time Stop Time Status Last Admin Dose Admin Albuterol/ Ipratropium (DuoNeb 0.5-3(2.5)mg/3ml) 3 ml Q4H PRN HHN dyspnea 12/10/16 23:41 12/13/16 23:40 Amitriptyline HCl (Elavil) 25 mg BEDTIME ORAL 12/09/16 21:00 01/06/17 20:59 12/10/16 20:56 Amlodipine Besylate (Norvasc) 10 mg DAILY ORAL 12/09/16 09:00 01/07/17 08:59 12/11/16 08:13 Azithromycin (Zithromax) 250 mg DAILY ORAL 12/09/16 09:00 12/14/16 15:59 12/11/16 08:13 Carbamazepine (TEGretol) 300 mg Q12HR ORAL 12/09/16 09:00 01/06/17 20:59 12/11/16 08:13 Ceftriaxone Sodium 2 gm/ Dextrose 110 ml @ 220 mls/hr Q24H IVPB 12/09/16 12:00 12/15/16 11:59 12/09/16 12:12 Dextrose (Dextrose 50%) STAT PRN IV Hypoglycemia 12/09/16 15:45 01/06/17 15:44 Divalproex Sodium (Depakote ER) 1,000 mg EVERY 12 HOURS ORAL 12/09/16 09:00 01/06/17 20:59 12/11/16 08:12 Fentanyl (Duragesic) 1 patch Q72H TDERMAL 12/11/16 18:00 12/15/16 17:59 Heparin Sodium (Porcine) (Heparin 5000 units/ml) 5,000 units EVERY 12 HOURS SUBQ 12/09/16 09:00 01/06/17 20:59 12/11/16 08:16 Hydromorphone HCl (Dilaudid) 2 mg Q4H PRN IVP severe breakthrough pain 12/09/16 06:45 12/15/16 14:44 12/11/16 06:22 Lisinopril (Prinivil) 20 mg DAILY ORAL 12/09/16 09:00 01/08/17 08:59 12/11/16 08:12 Lorazepam (Ativan) 2 mg Q8H PRN ORAL Agitation 12/09/16 12:30 12/16/16 12:29 12/11/16 02:55 Methylprednisolone Sodium Succinate (Solu-MEDROL) 60 mg Q12HR IV 12/10/16 21:00 01/06/17 17:59 12/10/16 20:55 Miscellaneous Medication (fentaNYL Destruction) 1 ea Q72H MISC 12/11/16 18:00 01/07/17 17:59 Morphine Sulfate (Morphine Sulfate) 4 mg Q4H PRN IVP severe pain 7-10 12/09/16 09:00 12/14/16 16:59 12/11/16 08:14 Naloxone HCl (Narcan) 0.1 mg PRN IV Sedation scale 3 or 4 12/09/16 06:15 01/07/17 14:44 Nitroglycerin (Ntg) 0.4 mg Q5M X 3 DOSES PRN SL Prn Chest Pain 12/09/16 06:15 01/06/17 15:44 Ondansetron HCl (Zofran) 4 mg Q6H PRN IVP Nausea & Vomiting 12/09/16 09:45 01/06/17 15:44 Oxycodone HCl (Roxicodone) 10 mg Q6H PRN ORAL moderate Breakthrough Pain 12/09/16 08:45 12/15/16 14:44 Phenytoin (Dilantin) 250 mg DAILY ORAL 12/09/16 09:00 01/07/17 08:59 12/11/16 08:11 Promethazine HCl/ Codeine (Phenergan with Codeine) 5 ml Q6H PRN ORAL cough 12/09/16 09:45 01/06/17 15:44 Quetiapine Fumarate (SEROquel) 100 mg BEDTIME ORAL 12/09/16 21:00 01/08/17 20:59 12/10/16 20:57 Temazepam (Restoril) 15 mg HSPRN PRN ORAL Insomnia 12/09/16 15:45 12/14/16 15:44 12/11/16 02:55 [facility] HospitalAlmita [facility] NP Dec 11, 2016 09:34
[2016-12-11] MEDS ORDERED: MORPHINE 11 MG/2 ML IV (09:40)
[2016-12-11] MEDS ORDERED: DILAUDID 22 MG/1 M1 IV (09:40)
[2016-12-11] MEDS ORDERED: NITROGLYCERIN0.4 MG SL (09:40)
[2016-12-11] MEDS ORDERED: NALOXONE H0.4 MG/12 IV (09:43)
[2016-12-11] MEDS ORDERED: PROMETH-CODEIN 65 ML PO (09:44)
[2016-12-11] MEDS ORDERED: SEROQUEL100 MG ORAL (09:44)
[2016-12-11] MEDS ORDERED: MEDROL DOSEPAK4 MG IV (09:44)
[2016-12-11] MEDS ORDERED: OXYCODONE HCL5 MG ORAL (09:45)
[2016-12-11] MEDS: cefTRIAXone 2 GM in D5W 110 ML IVPB SCH (12:47)
[2016-12-11] MEDS ORDERED: LEVAQUIN500 MG ORAL (13:12)
--- NOTE | 2016-12-11 13:56 | General Progress Note ---
Assessment/Plan Problem List: (1) COPD exacerbation ICD Codes: J44.1 - Chronic obstructive pulmonary disease with (acute) exacerbation SNOMED: 933807378, [id number] (2) Leukocytosis ICD Codes: D72.829 - Elevated white blood cell count, unspecified SNOMED: 231702723, 031496706 (3) Chronic pain ICD Codes: G89.29 - Other chronic pain SNOMED: 60286399 (4) Morbid obesity ICD Codes: E66.01 - Morbid (severe) obesity due to excess calories SNOMED: 310512677 Status: stable, progressing, tolerating diet Assessment/Plan ot [pt diet pain control abx dc to snf Subjective Constitutional: Reports: weakness Allergies: Coded Allergies: KETOROLAC (Verified Allergy, Severe, 08/06/16) ASPIRIN (Verified Allergy, Intermediate, 08/06/16) CEPHALEXIN (Verified Allergy, Mild, 12/13/14) FISH DERIVED (Unverified Allergy, Unknown, 08/29/16) PEANUT (Verified Allergy, Unknown, 11/19/15) Uncoded Allergies: fish (Allergy, Unknown, 08/12/16) All Systems: reviewed and negative except above Subjective weak in wc in [place] Objective Last 24 Hour Vital Signs Date Time Temp Pulse Resp B/P (MAP) Pulse Ox O2 Delivery O2 Flow Rate FiO2 12/11/16 12:00 97.9 94 19 140/96 93 Room Air 12/11/16 08:44 97.5 12/11/16 08:44 97.5 12/11/16 08:13 91 142/53 12/11/16 08:12 142/53 12/11/16 08:00 97.5 95 20 148/89 98 Room Air 12/11/16 07:05 106 18 Room Air 12/11/16 04:57 98.1 91 22 142/53 94 Room Air 12/11/16 00:00 97.9 79 21 131/69 94 Room Air 12/10/16 21:12 82 20 Room Air 21 12/10/16 20:00 98.1 91 21 124/65 94 Room Air 12/10/16 15:49 97.7 85 21 134/93 98 Room Air Laboratory Tests 12/11/16 05:10: White Blood Count 9.8, Red Blood Count 4.34L, Hemoglobin 13.5L, Hematocrit 39.9L , Mean Corpuscular Volume 92, Mean Corpuscular Hemoglobin 31.1H, Mean Corpuscular Hemoglobin Concent 33.8, Red Cell Distribution Width 12.1, Platelet Count 264, Mean Platelet Volume 7.0, Neutrophils (%) (Auto) 69.1, Lymphocytes (% ) (Auto) 25.0, Monocytes (%) (Auto) 5.3, Eosinophils (%) (Auto) 0.1, Basophils ( %) (Auto) 0.5, Sodium Level 131L, Potassium Level 4.5, Chloride Level 98, Carbon Dioxide Level 25, Anion Gap 8, Blood Urea Nitrogen 16, Creatinine 0.8, Estimat Glomerular Filtration Rate > 60, Glucose Level 289H, Calcium Level 8.7 Height (Feet): 5 Height (Inches): 10.00 Weight (Pounds): 330 General Appearance: alert EENT: normal ENT inspection Neck: normal alignment Cardiovascular: normal peripheral pulses, normal rate, regular rhythm Respiratory/Chest: chest wall non-tender, lungs clear, normal breath sounds Abdomen: normal bowel sounds, non tender, soft Extremities: normal inspection Edema: no edema noted Arm (L), no edema noted Arm (R), no edema noted Leg (L), no edema noted Leg (R), no edema noted Pedal (L), no edema noted Pedal (R), no edema noted Generalized Neurologic: responsive, motor weakness Skin: normal pigmentation, warm/dry MARQUEZ FOY Dec 11, 2016 13:56
--- NOTE | 2016-12-11 14:02 | General Progress Note ---
Assessment/Plan Status: stable, progressing Assessment/Plan ptsd seroquel and ativan the pt is reluctant to take any other meds Subjective 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: Reports: anxiety, depressed, emotional problems Allergies: Coded Allergies: KETOROLAC (Verified Allergy, Severe, 08/06/16) ASPIRIN (Verified Allergy, Intermediate, 08/06/16) CEPHALEXIN (Verified Allergy, Mild, 12/13/14) FISH DERIVED (Unverified Allergy, Unknown, 08/29/16) PEANUT (Verified Allergy, Unknown, 11/19/15) Uncoded Allergies: fish (Allergy, Unknown, 08/12/16) Subjective the pt is manipulative and stated that he lost his children in a car accident then he stated he lost his . lingering around nursing station and is med seeking. the pt was calmer today less anxious Objective Last 24 Hour Vital Signs Date Time Temp Pulse Resp B/P (MAP) Pulse Ox O2 Delivery O2 Flow Rate FiO2 12/11/16 12:00 97.9 94 19 140/96 93 Room Air 12/11/16 08:44 97.5 12/11/16 08:44 97.5 12/11/16 08:13 91 142/53 12/11/16 08:12 142/53 12/11/16 08:00 97.5 95 20 148/89 98 Room Air 12/11/16 07:05 106 18 Room Air 12/11/16 04:57 98.1 91 22 142/53 94 Room Air 12/11/16 00:00 97.9 79 21 131/69 94 Room Air 12/10/16 21:12 82 20 Room Air 21 12/10/16 20:00 98.1 91 21 124/65 94 Room Air 12/10/16 15:49 97.7 85 21 134/93 98 Room Air Laboratory Tests 12/11/16 05:10: White Blood Count 9.8, Red Blood Count 4.34L, Hemoglobin 13.5L, Hematocrit 39.9L , Mean Corpuscular Volume 92, Mean Corpuscular Hemoglobin 31.1H, Mean Corpuscular Hemoglobin Concent 33.8, Red Cell Distribution Width 12.1, Platelet Count 264, Mean Platelet Volume 7.0, Neutrophils (%) (Auto) 69.1, Lymphocytes (% ) (Auto) 25.0, Monocytes (%) (Auto) 5.3, Eosinophils (%) (Auto) 0.1, Basophils ( %) (Auto) 0.5, Sodium Level 131L, Potassium Level 4.5, Chloride Level 98, Carbon Dioxide Level 25, Anion Gap 8, Blood Urea Nitrogen 16, Creatinine 0.8, Estimat Glomerular Filtration Rate > 60, Glucose Level 289H, Calcium Level 8.7 Height (Feet): 5 Height (Inches): 10.00 Weight (Pounds): 330 General Appearance: no apparent distress, alert, obese Neurologic: alert, oriented x 3, responsive, depressed affect Bret Manuel M.D. Dec 11, 2016 14:02
--- NOTE | 2016-12-11 15:12 | General Progress Note ---
Assessment/Plan Assessment/Plan ASSESSMENT AND RECOMMENDATIONS: 1. Osteosarcoma, s/p radiation and chemotherapy. Continue to closely monitor. Will obtain prior records and imaging and review them. 2. Anemia secondary to chronic disease. Work up if counts drop below 10 3. Leukocytosis, likely secondary to reactive process. 4. Elevated blood sugar. Continue to monitor. 5. Sepsis with an elevated lactate at 2.9. Continue to monitor. 6. Hepatitis C. 7. Morbid obesity. 8. Seizure disorder. Subjective Constitutional: Reports: no symptoms HEENT: Reports: no symptoms Cardiovascular: Reports: no symptoms Respiratory: Reports: no symptoms Gastrointestinal/Abdominal: Reports: no symptoms Genitourinary: Reports: no symptoms 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: Reports: no symptoms Endocrine: Reports: no symptoms Hematologic/Lymphatic: Reports: no symptoms Allergies: Coded Allergies: KETOROLAC (Verified Allergy, Severe, 08/06/16) ASPIRIN (Verified Allergy, Intermediate, 08/06/16) CEPHALEXIN (Verified Allergy, Mild, 12/13/14) FISH DERIVED (Unverified Allergy, Unknown, 08/29/16) PEANUT (Verified Allergy, Unknown, 11/19/15) Uncoded Allergies: fish (Allergy, Unknown, 08/12/16) Subjective complaining of pain, refusing iv fluids Objective Last 24 Hour Vital Signs Date Time Temp Pulse Resp B/P (MAP) Pulse Ox O2 Delivery O2 Flow Rate FiO2 12/11/16 12:00 97.9 94 19 140/96 93 Room Air 12/11/16 08:44 97.5 12/11/16 08:44 97.5 12/11/16 08:13 91 142/53 12/11/16 08:12 142/53 12/11/16 08:00 97.5 95 20 148/89 98 Room Air 12/11/16 07:05 106 18 Room Air 21 12/11/16 04:57 98.1 91 22 142/53 94 Room Air 12/11/16 00:00 97.9 79 21 131/69 94 Room Air 12/10/16 21:12 82 20 Room Air 21 12/10/16 20:00 98.1 91 21 124/65 94 Room Air 12/10/16 15:49 97.7 85 21 134/93 98 Room Air Laboratory Tests 12/11/16 05:10: White Blood Count 9.8, Red Blood Count 4.34L, Hemoglobin 13.5L, Hematocrit 39.9L , Mean Corpuscular Volume 92, Mean Corpuscular Hemoglobin 31.1H, Mean Corpuscular Hemoglobin Concent 33.8, Red Cell Distribution Width 12.1, Platelet Count 264, Mean Platelet Volume 7.0, Neutrophils (%) (Auto) 69.1, Lymphocytes (% ) (Auto) 25.0, Monocytes (%) (Auto) 5.3, Eosinophils (%) (Auto) 0.1, Basophils ( %) (Auto) 0.5, Sodium Level 131L, Potassium Level 4.5, Chloride Level 98, Carbon Dioxide Level 25, Anion Gap 8, Blood Urea Nitrogen 16, Creatinine 0.8, Estimat Glomerular Filtration Rate > 60, Glucose Level 289H, Calcium Level 8.7 Height (Feet): 5 Height (Inches): 10.00 Weight (Pounds): 330 General Appearance: confused EENT: TMs normal Neck: normal inspection Edema: trace edema Skin: normal pigmentation Bin Abbott Dec 11, 2016 15:12
[2016-12-11] MEDS ORDERED: fentaNYL Destruction MISC SCH (18:00)
--- NOTE | 2016-12-11 18:45 | Infectious Diseases Prog Note ---
Assessment/Plan Problems: (1) COPD (chronic obstructive pulmonary disease) Assessment & Plan: with acute exacerbation , improving on ceftriaxone and Zithromax empirically, continue inhalers and oxygen, taper steroids since his WBC is going up (2) Osteosarcoma of femur Assessment & Plan: S/P radiation, and chemo, further management as per oncology (3) Diarrhea in adult patient Assessment & Plan: stool for C diff is negative , continue supportive care Subjective Constitutional: Reports: fatigue HEENT: Reports: no symptoms Respiratory: Reports: no symptoms Breasts: Reports: no symptoms Cardiovascular: Reports: no symptoms Gastrointestinal/Abdominal: Reports: diarrhea Genitourinary: Reports: no symptoms Neurologic: Reports: no symptoms Psychiatric: Reports: no symptoms Skin: Reports: ulcer Endocrine: Reports: no symptoms Hematologic: Reports: no symptoms Musculoskeletal: Reports: pain Allergies: Coded Allergies: KETOROLAC (Verified Allergy, Severe, 08/06/16) ASPIRIN (Verified Allergy, Intermediate, 08/06/16) CEPHALEXIN (Verified Allergy, Mild, 12/13/14) FISH DERIVED (Unverified Allergy, Unknown, 08/29/16) PEANUT (Verified Allergy, Unknown, 11/19/15) Uncoded Allergies: fish (Allergy, Unknown, 08/12/16) Objective Vital Signs Last 24 Hour Vital Signs Date Time Temp Pulse Resp B/P (MAP) Pulse Ox O2 Delivery O2 Flow Rate FiO2 12/11/16 16:00 98.2 94 20 125/84 94 Room Air 12/11/16 12:00 97.9 94 19 140/96 93 Room Air 12/11/16 08:44 97.5 12/11/16 08:44 97.5 12/11/16 08:13 91 142/53 12/11/16 08:12 142/53 12/11/16 08:00 97.5 95 20 148/89 98 Room Air 12/11/16 07:05 106 18 Room Air 12/11/16 04:57 98.1 91 22 142/53 94 Room Air 12/11/16 00:00 97.9 79 21 131/69 94 Room Air 12/10/16 21:12 82 20 Room Air 21 12/10/16 20:00 98.1 91 21 124/65 94 Room Air Height (Feet): 5 Height (Inches): 10.00 Weight (Pounds): 330 General Appearance: WD/WN, no acute distress HEENT: normocephalic, atraumatic, anicteric, mucous membranes moist Respiratory/Chest: chest wall non-tender, lungs clear, no respiratory distress , no accessory muscle use, decreased breath sounds Cardiovascular: normal peripheral pulses, normal rate, regular rhythm, no gallop/murmur, no JVD Abdomen: normal bowel sounds, soft, non tender, no organomegaly, non distended , no mass, no scars Extremities: no cyanosis, no clubbing Skin: no rash, no lesions, no ulcers 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: alert, oriented x 3, responsive Lymphatic: no neck adenopathy, no groin adenopathy Microbiology Date/Time Source Procedure Growth Status 12/10/16 02:18 Sputum Expectorated Gram Stain - Final Resulted 12/10/16 02:18 Sputum Expectorated Sputum Culture - Preliminary NORMAL UPPER RESPIRATORY GREGORIA AT 24 ... Resulted Laboratory Tests Test 12/11/16 05:10 White Blood Count 9.8 K/UL (4.8-10.8) Red Blood Count 4.34 M/UL (4.70-6.10) L Hemoglobin 13.5 G/DL (14.2-18.0) L Hematocrit 39.9 % (42.0-52.0) L Mean Corpuscular Volume 92 FL (80-99) Mean Corpuscular Hemoglobin 31.1 PG (27.0-31.0) H Mean Corpuscular Hemoglobin Concent 33.8 G/DL (32.0-36.0) Red Cell Distribution Width 12.1 % (11.6-14.8) Platelet Count 264 K/UL (150-450) Mean Platelet Volume 7.0 FL (6.5-10.1) Neutrophils (%) (Auto) 69.1 % (45.0-75.0) Lymphocytes (%) (Auto) 25.0 % (20.0-45.0) Monocytes (%) (Auto) 5.3 % (1.0-10.0) Eosinophils (%) (Auto) 0.1 % (0.0-3.0) Basophils (%) (Auto) 0.5 % (0.0-2.0) Sodium Level 131 MMOL/L (136-145) L Potassium Level 4.5 MMOL/L (3.5-5.1) Chloride Level 98 MMOL/L (98-107) Carbon Dioxide Level 25 MMOL/L (21-32) Anion Gap 8 (5-15) Blood Urea Nitrogen 16 mg/dL (7-18) Creatinine 0.8 MG/DL (0.55-1.30) Estimat Glomerular Filtration Rate > 60 mL/min (>60) Glucose Level 289 MG/DL (74-106) H Calcium Level 8.7 MG/DL (8.5-10.1) Current Medications Medications (Trade) Dose Ordered Sig/Robert Route PRN Reason Start Time Stop Time Status Last Admin Dose Admin Albuterol/ Ipratropium (DuoNeb 0.5-3(2.5)mg/3ml) 3 ml Q4H PRN HHN dyspnea 12/10/16 23:41 12/13/16 23:40 Amitriptyline HCl (Elavil) 25 mg BEDTIME ORAL 12/09/16 21:00 01/06/17 20:59 12/10/16 20:56 Amlodipine Besylate (Norvasc) 10 mg DAILY ORAL 12/09/16 09:00 01/07/17 08:59 12/11/16 08:13 Azithromycin (Zithromax) 250 mg DAILY ORAL 12/09/16 09:00 12/14/16 15:59 12/11/16 08:13 Carbamazepine (TEGretol) 300 mg Q12HR ORAL 12/09/16 09:00 01/06/17 20:59 12/11/16 08:13 Ceftriaxone Sodium 2 gm/ Dextrose 110 ml @ 220 mls/hr Q24H IVPB 12/09/16 12:00 12/15/16 11:59 12/11/16 12:47 Dextrose (Dextrose 50%) STAT PRN IV Hypoglycemia 12/09/16 15:45 01/06/17 15:44 Divalproex Sodium (Depakote ER) 1,000 mg EVERY 12 HOURS ORAL 12/09/16 09:00 01/06/17 20:59 12/11/16 08:12 Fentanyl (Duragesic) 1 patch Q72H TDERMAL 12/11/16 21:00 12/18/16 20:59 Heparin Sodium (Porcine) (Heparin 5000 units/ml) 5,000 units EVERY 12 HOURS SUBQ 12/09/16 09:00 01/06/17 20:59 12/11/16 08:16 Hydromorphone HCl (Dilaudid) 2 mg Q4H PRN IVP severe breakthrough pain 12/09/16 06:45 12/15/16 14:44 12/11/16 18:31 Lisinopril (Prinivil) 20 mg DAILY ORAL 12/09/16 09:00 01/08/17 08:59 12/11/16 08:12 Lorazepam (Ativan) 2 mg Q8H PRN ORAL Agitation 12/09/16 12:30 12/16/16 12:29 12/11/16 02:55 Methylprednisolone Sodium Succinate (Solu-MEDROL) 60 mg DAILY IV 12/12/16 09:00 01/06/17 17:59 Miscellaneous Medication (fentaNYL Destruction) 1 ea Q72H MISC 12/11/16 21:00 01/10/17 20:59 Morphine Sulfate (Morphine Sulfate) 4 mg Q4H PRN IVP severe pain 7-10 12/09/16 09:00 12/14/16 16:59 12/11/16 16:23 Naloxone HCl (Narcan) 0.1 mg PRN IV Sedation scale 3 or 4 12/09/16 06:15 01/07/17 14:44 Nitroglycerin (Ntg) 0.4 mg Q5M X 3 DOSES PRN SL Prn Chest Pain 12/09/16 06:15 01/06/17 15:44 Ondansetron HCl (Zofran) 4 mg Q6H PRN IVP Nausea & Vomiting 12/09/16 09:45 01/06/17 15:44 Oxycodone HCl (Roxicodone) 10 mg Q6H PRN ORAL moderate Breakthrough Pain 12/09/16 08:45 12/15/16 14:44 Phenytoin (Dilantin) 250 mg DAILY ORAL 12/09/16 09:00 01/07/17 08:59 12/11/16 08:11 Promethazine HCl/ Codeine (Phenergan with Codeine) 5 ml Q6H PRN ORAL cough 12/09/16 09:45 01/06/17 15:44 Quetiapine Fumarate (SEROquel) 100 mg BEDTIME ORAL 12/09/16 21:00 01/08/17 20:59 12/10/16 20:57 Temazepam (Restoril) 15 mg HSPRN PRN ORAL Insomnia 12/09/16 15:45 12/14/16 15:44 12/11/16 02:55 Uri Tesfaye M.D. Dec 11, 2016 18:45
[2016-12-11] MEDS: fentaNYL Destruction MISC SCH (21:21)
[2016-12-12] MEDS: Morphine Sulfate 4mg/ml Inj IVP PRN ×5 (02:38→21:02)
[2016-12-12 03:59] VITALS: BP 145/83
[2016-12-12] MEDS: LORazepam 1mg tab ORAL PRN (04:45)
[2016-12-12 08:00] VITALS: BP 131/79
[2016-12-12] MEDS: carBAMazepine 200mg tab ORAL SCH ×2 (08:49→20:59)
[2016-12-12] MEDS: Depakote ER 500mg tab ORAL SCH ×2 (08:49→20:58)
[2016-12-12] MEDS: Lisinopril 20mg tab ORAL SCH (08:50)
[2016-12-12] MEDS: Azithromycin 250mg tab ORAL SCH (08:50)
[2016-12-12] MEDS: Phenytoin Susp 100mg/4ml ORAL SCH ×2 (08:51→10:03)
[2016-12-12] MEDS ORDERED: Solu-MEDROL 125mg Inj IV SCH (09:00)
[2016-12-12 09:01] LABS: BASOPHILS % (AUTO) 1.3 % (0.0-2.0); EOSINOPHILS % (AUTO) 1.4 % (0.0-3.0); LYMPHOCYTES % (AUTO) 34.4 % (20.0-45.0); MEAN CORPUSCULAR HEMOGLOBIN 30.7 PG (27.0-31.0); MEAN CORPUSCULAR HGB CONC 33.2 G/DL (32.0-36.0); MEAN CORPUSCULAR VOLUME 92 FL (80-99); MONOCYTES % (AUTO) 5.6 % (1.0-10.0); NEUTROPHILS % (AUTO) 57.3 % (45.0-75.0); PLATELET COUNT 208 K/UL (150-450); RED CELL DISTRIBUTION WIDTH 12.4 % (11.6-14.8); WHITE BLOOD COUNT 8.7 K/UL (4.8-10.8)
[2016-12-12] MEDS: Heparin 5000 units/ml inj SUBQ SCH ×2 (09:12→21:01)
[2016-12-12 09:15] LABS: ANION GAP 9 (5-15); CALCIUM 8.8 MG/DL (8.5-10.1); CARBON DIOXIDE 26 MMOL/L (21-32); CHLORIDE 97 MMOL/L (98-107); CREATININE 0.8 MG/DL (0.55-1.30); GLOMERULAR FILTRATION RATE > 60 mL/min (>60); SODIUM 132 MMOL/L (136-145)
--- NOTE | 2016-12-12 10:34 | General Progress Note ---
Assessment/Plan Problem List: (1) COPD exacerbation ICD Codes: J44.1 - Chronic obstructive pulmonary disease with (acute) exacerbation SNOMED: 758454600, 155771427 (2) Leukocytosis ICD Codes: D72.829 - Elevated white blood cell count, unspecified SNOMED: 257203372, 545368873 (3) Chronic pain ICD Codes: G89.29 - Other chronic pain SNOMED: 59794798 (4) Morbid obesity ICD Codes: E66.01 - Morbid (severe) obesity due to excess calories SNOMED: 472873350 Status: stable, progressing, tolerating diet Assessment/Plan ot [pt diet pain control abx cbc bmp am dc to snf Subjective Constitutional: Reports: weakness Allergies: Coded Allergies: KETOROLAC (Verified Allergy, Severe, 08/06/16) ASPIRIN (Verified Allergy, Intermediate, 08/06/16) CEPHALEXIN (Verified Allergy, Mild, 12/13/14) FISH DERIVED (Unverified Allergy, Unknown, 08/29/16) PEANUT (Verified Allergy, Unknown, 11/19/15) Uncoded Allergies: fish (Allergy, Unknown, 08/12/16) All Systems: reviewed and negative except above Subjective weak in bed Objective Last 24 Hour Vital Signs Date Time Temp Pulse Resp B/P (MAP) Pulse Ox O2 Delivery O2 Flow Rate FiO2 12/12/16 10:18 106 20 96 Room Air 21 12/12/16 10:03 106 20 96 Room Air 21 12/12/16 10:02 106 20 Room Air 21 12/12/16 08:50 131/79 12/12/16 08:49 74 131/79 12/12/16 08:00 97.7 74 18 131/79 93 Room Air 12/12/16 03:59 97.6 85 20 145/83 97 Room Air 12/11/16 23:45 97.9 88 19 128/83 Room Air 12/11/16 19:33 97.9 95 20 127/86 99 Room Air 12/11/16 19:12 99 18 Room Air 21 12/11/16 16:00 98.2 94 20 125/84 94 Room Air 12/11/16 12:00 97.9 94 19 140/96 93 Room Air Laboratory Tests 12/12/16 08:00: White Blood Count 8.7, Red Blood Count 4.30L, Hemoglobin 13.2L, Hematocrit 39.8L , Mean Corpuscular Volume 92, Mean Corpuscular Hemoglobin 30.7, Mean Corpuscular Hemoglobin Concent 33.2, Red Cell Distribution Width 12.4, Platelet Count 208, Mean Platelet Volume 7.0, Neutrophils (%) (Auto) 57.3, Lymphocytes (% ) (Auto) 34.4, Monocytes (%) (Auto) 5.6, Eosinophils (%) (Auto) 1.4, Basophils ( %) (Auto) 1.3, Sodium Level 132L, Potassium Level 4.0, Chloride Level 97L, Carbon Dioxide Level 26, Anion Gap 9, Blood Urea Nitrogen 13, Creatinine 0.8, Estimat Glomerular Filtration Rate > 60, Glucose Level 260H, Calcium Level 8.8 Height (Feet): 5 Height (Inches): 10.00 Weight (Pounds): 330 General Appearance: alert EENT: normal ENT inspection Neck: normal alignment Cardiovascular: normal peripheral pulses, normal rate, regular rhythm Respiratory/Chest: chest wall non-tender, lungs clear, normal breath sounds Abdomen: normal bowel sounds, non tender, soft Extremities: normal inspection Edema: no edema noted Arm (L), no edema noted Arm (R), no edema noted Leg (L), no edema noted Leg (R), no edema noted Pedal (L), no edema noted Pedal (R), no edema noted Generalized Neurologic: 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
[2016-12-12 12:00] VITALS: BP_SYST 126; BP_SYST 147; BP_DIAS 71; BP_DIAS 82
[2016-12-12] MEDS: cefTRIAXone 2 GM in D5W 110 ML IVPB SCH (12:17)
--- NOTE | 2016-12-12 12:41 | Pulmonology Progress Note ---
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) RLL open wound chronic pain syndrome seizure disorder HTN hep C psychiatric disorder anemia of chronic disease morbid obesity GERD diarrhea PTSD lactic acidosis PLAN OF CARE MS floor O2 HHN steroids change to oral in am empiric abx sputum cx a/tussive prn CXR no acute cardiopulmonary pathology wound care as per wound nurse recommendations pain management pain specialist follows seizure precautions continue Tegretol, Dilantin, Topamax, Depakote BP management with CCB and CHANCE, optimize as needed psych follows optimized psych medication regimen onco follows PT/OT DVT prophylaxis monitor counts, remain at baseline stool C dif negative, off Flagyl can be dc from pulmonary standpoint on oral medrol dose pack, case discussed and evaluated by supervising physician taper steroids 1L NS for low Na Subjective Allergies: Coded Allergies: KETOROLAC (Verified Allergy, Severe, 08/06/16) ASPIRIN (Verified Allergy, Intermediate, 08/06/16) CEPHALEXIN (Verified Allergy, Mild, 12/13/14) FISH DERIVED (Unverified Allergy, Unknown, 08/29/16) PEANUT (Verified Allergy, Unknown, 11/19/15) Uncoded Allergies: fish (Allergy, Unknown, 08/12/16) Subjective no chest pain,no SOB + cough, dry, no hemoptysis afebrile, leukocytosis resolved on RA pulse oximetry stable Objective Last 24 Hour Vital Signs Date Time Temp Pulse Resp B/P (MAP) Pulse Ox O2 Delivery O2 Flow Rate FiO2 12/12/16 10:18 106 20 96 Room Air 21 12/12/16 10:03 106 20 96 Room Air 21 12/12/16 10:02 106 20 Room Air 12/12/16 08:50 131/79 12/12/16 08:49 74 131/79 12/12/16 08:00 97.7 74 18 131/79 93 Room Air 12/12/16 03:59 97.6 85 20 145/83 97 Room Air 12/11/16 23:45 97.9 88 19 128/83 Room Air 12/11/16 19:33 97.9 95 20 127/86 99 Room Air 12/11/16 19:12 99 18 Room Air 21 12/11/16 16:00 98.2 94 20 125/84 94 Room Air Objective General Appearance: no acute distress, other - morbidly obese male HEENT: normocephalic, atraumatic, anicteric, mucous membranes moist Respiratory/Chest: decreased breath sounds Cardiovascular: normal rate, regular rhythm, no JVD Abdomen: normal bowel sounds, soft, non tender - obese Skin: other - RLL open wound 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: no motor/sensory deficits, alert, oriented x 3, responsive Musculoskeletal: normal muscle bulk Microbiology Date/Time Source Procedure Growth Status 12/10/16 02:18 Sputum Expectorated Gram Stain - Final Resulted 12/10/16 02:18 Sputum Expectorated Sputum Culture - Preliminary NORMAL UPPER RESPIRATORY GREG[place]IA AT 24 ... Resulted Laboratory Tests 12/12/16 08:00: White Blood Count 8.7, Red Blood Count 4.30L, Hemoglobin 13.2L, Hematocrit 39.8L , Mean Corpuscular Volume 92, Mean Corpuscular Hemoglobin 30.7, Mean Corpuscular Hemoglobin Concent 33.2, Red Cell Distribution Width 12.4, Platelet Count 208, Mean Platelet Volume 7.0, Neutrophils (%) (Auto) 57.3, Lymphocytes (% ) (Auto) 34.4, Monocytes (%) (Auto) 5.6, Eosinophils (%) (Auto) 1.4, Basophils ( %) (Auto) 1.3, Sodium Level 132L, Potassium Level 4.0, Chloride Level 97L, Carbon Dioxide Level 26, Anion Gap 9, Blood Urea Nitrogen 13, Creatinine 0.8, Estimat Glomerular Filtration Rate > 60, Glucose Level 260H, Calcium Level 8.8 Current Medications Medications (Trade) Dose Ordered Sig/Robert Route PRN Reason Start Time Stop Time Status Last Admin Dose Admin Albuterol/ Ipratropium (DuoNeb 0.5-3(2.5)mg/3ml) 3 ml Q4H PRN HHN dyspnea 12/10/16 23:41 12/13/16 23:40 12/12/16 10:12 Amitriptyline HCl (Elavil) 25 mg BEDTIME ORAL 12/09/16 21:00 01/06/17 20:59 12/11/16 21:19 Amlodipine Besylate (Norvasc) 10 mg DAILY ORAL 12/09/16 09:00 01/07/17 08:59 12/12/16 08:49 Azithromycin (Zithromax) 250 mg DAILY ORAL 12/09/16 09:00 12/14/16 15:59 12/12/16 08:50 Carbamazepine (TEGretol) 300 mg Q12HR ORAL 12/09/16 09:00 01/06/17 20:59 12/12/16 08:49 Ceftriaxone Sodium 2 gm/ Dextrose 110 ml @ 220 mls/hr Q24H IVPB 12/09/16 12:00 12/15/16 11:59 12/12/16 12:17 Dextrose (Dextrose 50%) STAT PRN IV Hypoglycemia 12/09/16 15:45 01/06/17 15:44 Divalproex Sodium (Depakote ER) 1,000 mg EVERY 12 HOURS ORAL 12/09/16 09:00 01/06/17 20:59 12/12/16 08:49 Fentanyl (Duragesic) 1 patch Q72H TDERMAL 12/11/16 21:00 12/18/16 20:59 12/11/16 21:18 Heparin Sodium (Porcine) (Heparin 5000 units/ml) 5,000 units EVERY 12 HOURS SUBQ 12/09/16 09:00 01/06/17 20:59 12/12/16 09:12 Hydromorphone HCl (Dilaudid) 2 mg Q4H PRN IVP severe breakthrough pain 12/09/16 06:45 12/15/16 14:44 12/12/16 08:51 Lisinopril (Prinivil) 20 mg DAILY ORAL 12/09/16 09:00 01/08/17 08:59 12/12/16 08:50 Lorazepam (Ativan) 2 mg Q8H PRN ORAL Agitation 12/09/16 12:30 12/16/16 12:29 12/12/16 04:45 Methylprednisolone Sodium Succinate (Solu-MEDROL) 60 mg DAILY IV 12/12/16 09:00 01/06/17 17:59 Miscellaneous Medication (fentaNYL Destruction) 1 ea Q72H MISC 12/11/16 21:00 01/10/17 20:59 12/11/16 21:21 Morphine Sulfate (Morphine Sulfate) 4 mg Q4H PRN IVP severe pain 7-10 12/09/16 09:00 12/14/16 16:59 12/12/16 12:17 Naloxone HCl (Narcan) 0.1 mg PRN IV Sedation scale 3 or 4 12/09/16 06:15 01/07/17 14:44 Nitroglycerin (Ntg) 0.4 mg Q5M X 3 DOSES PRN SL Prn Chest Pain 12/09/16 06:15 01/06/17 15:44 Ondansetron HCl (Zofran) 4 mg Q6H PRN IVP Nausea & Vomiting 12/09/16 09:45 01/06/17 15:44 Oxycodone HCl (Roxicodone) 10 mg Q6H PRN ORAL moderate Breakthrough Pain 12/09/16 08:45 12/15/16 14:44 Phenytoin (Dilantin) 250 mg DAILY ORAL 12/09/16 09:00 01/07/17 08:59 12/12/16 10:03 Promethazine HCl/ Codeine (Phenergan with Codeine) 5 ml Q6H PRN ORAL cough 12/09/16 09:45 01/06/17 15:44 Quetiapine Fumarate (SEROquel) 100 mg BEDTIME ORAL 12/09/16 21:00 01/08/17 20:59 12/11/16 21:18 Temazepam (Restoril) 15 mg HSPRN PRN ORAL Insomnia 12/09/16 15:45 12/14/16 15:44 12/11/16 02:55 Wai ([facility])Almita NP Dec 12, 2016 12:41
[2016-12-12] MEDS ORDERED: Albuterol/Ipratropium 3ml neb HHN PRN (14:00)
--- NOTE | 2016-12-12 15:41 | Infectious Diseases Prog Note ---
Assessment/Plan Problems: (1) COPD (chronic obstructive pulmonary disease) Assessment & Plan: with acute exacerbation , improving on ceftriaxone and Zithromax empirically, continue inhalers and oxygen, taper steroids , may switch to oral levaquin to finish his course for 7 days (2) Osteosarcoma of femur Assessment & Plan: S/P radiation, and chemo, further management as per oncology (3) Diarrhea in adult patient Assessment & Plan: stool for C diff is negative , continue supportive care Subjective Constitutional: Reports: fatigue, anorexia HEENT: Reports: no symptoms Respiratory: Reports: productive cough Breasts: Reports: no symptoms Cardiovascular: Reports: no symptoms Gastrointestinal/Abdominal: Reports: diarrhea Genitourinary: Reports: no symptoms Neurologic: Reports: weakness Psychiatric: Reports: depression Skin: Reports: no symptoms Endocrine: Reports: no symptoms Hematologic: Reports: no symptoms Musculoskeletal: Reports: pain Allergies: Coded Allergies: KETOROLAC (Verified Allergy, Severe, 08/06/16) ASPIRIN (Verified Allergy, Intermediate, 08/06/16) CEPHALEXIN (Verified Allergy, Mild, 12/13/14) FISH DERIVED (Unverified Allergy, Unknown, 08/29/16) PEANUT (Verified Allergy, Unknown, 11/19/15) Uncoded Allergies: fish (Allergy, Unknown, 08/12/16) Objective Vital Signs Last 24 Hour Vital Signs Date Time Temp Pulse Resp B/P (MAP) Pulse Ox O2 Delivery O2 Flow Rate FiO2 12/12/16 12:00 97.5 91 20 126/71 97 Room Air 12/12/16 10:18 106 20 96 Room Air 12/12/16 10:03 106 20 96 Room Air 12/12/16 10:02 106 20 Room Air 12/12/16 08:50 131/79 12/12/16 08:49 74 131/79 12/12/16 08:00 97.7 74 18 131/79 93 Room Air 12/12/16 03:59 97.6 85 20 145/83 97 Room Air 12/11/16 23:45 97.9 88 19 128/83 Room Air 12/11/16 19:33 97.9 95 20 127/86 99 Room Air 12/11/16 19:12 99 18 Room Air 12/11/16 16:00 98.2 94 20 125/84 94 Room Air Height (Feet): 5 Height (Inches): 10.00 Weight (Pounds): 330 General Appearance: WD/WN, no acute distress HEENT: normocephalic, atraumatic, anicteric, mucous membranes moist, PERRL Respiratory/Chest: chest wall non-tender, no respiratory distress, no accessory muscle use, decreased breath sounds, expiratory wheezing Cardiovascular: normal peripheral pulses, normal rate, regular rhythm, no gallop/murmur, no JVD Abdomen: normal bowel sounds, soft, non tender, no organomegaly, non distended , no mass, no scars Extremities: no cyanosis, no clubbing Skin: no rash, no lesions 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: alert, oriented x 3 Lymphatic: no neck adenopathy, no groin adenopathy Microbiology Date/Time Source Procedure Growth Status 12/10/16 02:18 Sputum Expectorated Gram Stain - Final Resulted 12/10/16 02:18 Sputum Expectorated Sputum Culture - Preliminary NORMAL UPPER RESPIRATORY GREG[place]IA AT 24 ... Resulted Laboratory Tests Test 12/12/16 08:00 White Blood Count 8.7 K/UL (4.8-10.8) Red Blood Count 4.30 M/UL (4.70-6.10) L Hemoglobin 13.2 G/DL (14.2-18.0) L Hematocrit 39.8 % (42.0-52.0) L Mean Corpuscular Volume 92 FL (80-99) Mean Corpuscular Hemoglobin 30.7 PG (27.0-31.0) Mean Corpuscular Hemoglobin Concent 33.2 G/DL (32.0-36.0) Red Cell Distribution Width 12.4 % (11.6-14.8) Platelet Count 208 K/UL (150-450) Mean Platelet Volume 7.0 FL (6.5-10.1) Neutrophils (%) (Auto) 57.3 % (45.0-75.0) Lymphocytes (%) (Auto) 34.4 % (20.0-45.0) Monocytes (%) (Auto) 5.6 % (1.0-10.0) Eosinophils (%) (Auto) 1.4 % (0.0-3.0) Basophils (%) (Auto) 1.3 % (0.0-2.0) Sodium Level 132 MMOL/L (136-145) L Potassium Level 4.0 MMOL/L (3.5-5.1) Chloride Level 97 MMOL/L (98-107) L Carbon Dioxide Level 26 MMOL/L (21-32) Anion Gap 9 (5-15) Blood Urea Nitrogen 13 mg/dL (7-18) Creatinine 0.8 MG/DL (0.55-1.30) Estimat Glomerular Filtration Rate > 60 mL/min (>60) Glucose Level 260 MG/DL (74-106) H Calcium Level 8.8 MG/DL (8.5-10.1) Current Medications Medications (Trade) Dose Ordered Sig/Robert Route PRN Reason Start Time Stop Time Status Last Admin Dose Admin Albuterol/ Ipratropium (DuoNeb 0.5-3(2.5)mg/3ml) 3 ml Q4H PRN HHN dyspnea 12/12/16 14:00 12/15/16 13:59 Amitriptyline HCl (Elavil) 25 mg BEDTIME ORAL 12/09/16 21:00 01/06/17 20:59 12/11/16 21:19 Amlodipine Besylate (Norvasc) 10 mg DAILY ORAL 12/09/16 09:00 01/07/17 08:59 12/12/16 08:49 Azithromycin (Zithromax) 250 mg DAILY ORAL 12/09/16 09:00 12/14/16 15:59 12/12/16 08:50 Carbamazepine (TEGretol) 300 mg Q12HR ORAL 12/09/16 09:00 01/06/17 20:59 12/12/16 08:49 Ceftriaxone Sodium 2 gm/ Dextrose 110 ml @ 220 mls/hr Q24H IVPB 12/09/16 12:00 12/15/16 11:59 12/12/16 12:17 Dextrose (Dextrose 50%) STAT PRN IV Hypoglycemia 12/09/16 15:45 01/06/17 15:44 Divalproex Sodium (Depakote ER) 1,000 mg EVERY 12 HOURS ORAL 12/09/16 09:00 01/06/17 20:59 12/12/16 08:49 Fentanyl (Duragesic) 1 patch Q72H TDERMAL 12/11/16 21:00 12/18/16 20:59 12/11/16 21:18 Heparin Sodium (Porcine) (Heparin 5000 units/ml) 5,000 units EVERY 12 HOURS SUBQ 12/09/16 09:00 01/06/17 20:59 12/12/16 09:12 Hydromorphone HCl (Dilaudid) 2 mg Q4H PRN IVP severe breakthrough pain 12/09/16 06:45 12/15/16 14:44 12/12/16 13:45 Lisinopril (Prinivil) 20 mg DAILY ORAL 12/09/16 09:00 01/08/17 08:59 12/12/16 08:50 Lorazepam (Ativan) 2 mg Q8H PRN ORAL Agitation 12/09/16 12:30 12/16/16 12:29 12/12/16 04:45 Miscellaneous Medication (fentaNYL Destruction) 1 ea Q72H MISC 12/11/16 21:00 01/10/17 20:59 12/11/16 21:21 Morphine Sulfate (Morphine Sulfate) 4 mg Q4H PRN IVP severe pain 7-10 12/09/16 09:00 12/14/16 16:59 12/12/16 12:17 Naloxone HCl (Narcan) 0.1 mg PRN IV Sedation scale 3 or 4 12/09/16 06:15 01/07/17 14:44 Nitroglycerin (Ntg) 0.4 mg Q5M X 3 DOSES PRN SL Prn Chest Pain 12/09/16 06:15 01/06/17 15:44 Ondansetron HCl (Zofran) 4 mg Q6H PRN IVP Nausea & Vomiting 12/09/16 09:45 01/06/17 15:44 Oxycodone HCl (Roxicodone) 10 mg Q6H PRN ORAL moderate Breakthrough Pain 12/09/16 08:45 12/15/16 14:44 Phenytoin (Dilantin) 250 mg DAILY ORAL 12/09/16 09:00 01/07/17 08:59 12/12/16 10:03 Prednisone (predniSONE) 60 mg Taper DAILY ORAL 12/13/16 09:00 12/19/16 08:59 Promethazine HCl/ Codeine (Phenergan with Codeine) 5 ml Q6H PRN ORAL cough 12/09/16 09:45 01/06/17 15:44 Quetiapine Fumarate (SEROquel) 100 mg BEDTIME ORAL 12/09/16 21:00 01/08/17 20:59 12/11/16 21:18 Temazepam (Restoril) 15 mg HSPRN PRN ORAL Insomnia 12/09/16 15:45 12/14/16 15:44 12/11/16 02:55 Uri Tesfaye M.D. Dec 12, 2016 15:41
[2016-12-12 20:00] VITALS: BP 128/69
--- NOTE | 2016-12-12 21:16 | General Progress Note ---
Assessment/Plan Assessment/Plan ASSESSMENT AND RECOMMENDATIONS: 1. Osteosarcoma, s/p radiation and chemotherapy. Continue to closely monitor. Will obtain prior records and imaging and review them. 2. Anemia secondary to chronic disease. Work up if counts drop below 10 3. Leukocytosis, likely secondary to reactive process. Improved 4. Elevated blood sugar. Continue to monitor. 5. Sepsis with an elevated lactate at 2.9. Continue to monitor. 6. Hepatitis C. 7. Morbid obesity. 8. Seizure disorder. Subjective Constitutional: Reports: no symptoms HEENT: Reports: no symptoms Cardiovascular: Reports: no symptoms Respiratory: Reports: no symptoms Gastrointestinal/Abdominal: Reports: no symptoms Genitourinary: Reports: no symptoms 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: Reports: no symptoms Endocrine: Reports: no symptoms Hematologic/Lymphatic: Reports: no symptoms Allergies: Coded Allergies: KETOROLAC (Verified Allergy, Severe, 08/06/16) ASPIRIN (Verified Allergy, Intermediate, 08/06/16) CEPHALEXIN (Verified Allergy, Mild, 12/13/14) FISH DERIVED (Unverified Allergy, Unknown, 08/29/16) PEANUT (Verified Allergy, Unknown, 11/19/15) Uncoded Allergies: fish (Allergy, Unknown, 08/12/16) Subjective afebrile, no bleeding, vss Objective Last 24 Hour Vital Signs Date Time Temp Pulse Resp B/P (MAP) Pulse Ox O2 Delivery O2 Flow Rate FiO2 12/12/16 20:00 98.1 99 18 128/69 92 Room Air 12/12/16 19:50 102 18 Room Air 12/12/16 19:25 97.5 12/12/16 12:00 97.5 91 20 126/71 97 Room Air 12/12/16 10:18 106 20 96 Room Air 21 12/12/16 10:03 106 20 96 Room Air 21 12/12/16 10:02 106 20 Room Air 21 12/12/16 08:50 131/79 12/12/16 08:49 74 131/79 12/12/16 08:00 97.7 74 18 131/79 93 Room Air 12/12/16 03:59 97.6 85 20 145/83 97 Room Air 12/11/16 23:45 97.9 88 19 128/83 Room Air Intake and Output 12/12/16 12/13/16 19:00 07:00 Intake Total 220 ml Balance 220 ml IV Total 220 ml Laboratory Tests 12/12/16 08:00: White Blood Count 8.7, Red Blood Count 4.30L, Hemoglobin 13.2L, Hematocrit 39.8L , Mean Corpuscular Volume 92, Mean Corpuscular Hemoglobin 30.7, Mean Corpuscular Hemoglobin Concent 33.2, Red Cell Distribution Width 12.4, Platelet Count 208, Mean Platelet Volume 7.0, Neutrophils (%) (Auto) 57.3, Lymphocytes (% ) (Auto) 34.4, Monocytes (%) (Auto) 5.6, Eosinophils (%) (Auto) 1.4, Basophils ( %) (Auto) 1.3, Sodium Level 132L, Potassium Level 4.0, Chloride Level 97L, Carbon Dioxide Level 26, Anion Gap 9, Blood Urea Nitrogen 13, Creatinine 0.8, Estimat Glomerular Filtration Rate > 60, Glucose Level 260H, Calcium Level 8.8 Height (Feet): 5 Height (Inches): 10.00 Weight (Pounds): 330 General Appearance: no apparent distress EENT: normal ENT inspection Neck: normal inspection Abdomen: no organomegaly, no mass Extremities: normal inspection Bin Abbott Dec 12, 2016 21:16
[2016-12-13] VITALS: BP 125/70
[2016-12-13] MEDS: Morphine Sulfate 4mg/ml Inj IVP PRN ×5 (01:10→20:27)
[2016-12-13 08:00] VITALS: BP 140/70
[2016-12-13 08:12] VITALS: BP 146/89
[2016-12-13] MEDS: carBAMazepine 200mg tab ORAL SCH ×2 (08:55→20:28)
[2016-12-13] MEDS: Depakote ER 500mg tab ORAL SCH ×2 (08:56→20:27)
[2016-12-13] MEDS: Azithromycin 250mg tab ORAL SCH (08:56)
[2016-12-13] MEDS: Lisinopril 20mg tab ORAL SCH (08:57)
[2016-12-13] MEDS: Heparin 5000 units/ml inj SUBQ SCH ×2 (09:02→20:30)
[2016-12-13] MEDS ORDERED: Tubing IV Secondary IV ONE (10:21)
--- NOTE | 2016-12-13 10:27 | General Progress Note ---
Assessment/Plan Problem List: (1) COPD exacerbation ICD Codes: J44.1 - Chronic obstructive pulmonary disease with (acute) exacerbation SNOMED: 306706069, 744233276 (2) Leukocytosis ICD Codes: D72.829 - Elevated white blood cell count, unspecified SNOMED: 447491318, 637815176 (3) Chronic pain ICD Codes: G89.29 - Other chronic pain SNOMED: 11560686 (4) Morbid obesity ICD Codes: E66.01 - Morbid (severe) obesity due to excess calories SNOMED: 997196103 Status: stable, progressing, tolerating diet Assessment/Plan ot [pt diet pain control abx cbc bmp am dc to snf Subjective Constitutional: Reports: weakness Allergies: Coded Allergies: KETOROLAC (Verified Allergy, Severe, 08/06/16) ASPIRIN (Verified Allergy, Intermediate, 08/06/16) CEPHALEXIN (Verified Allergy, Mild, 12/13/14) FISH DERIVED (Unverified Allergy, Unknown, 08/29/16) PEANUT (Verified Allergy, Unknown, 11/19/15) Uncoded Allergies: fish (Allergy, Unknown, 08/12/16) All Systems: reviewed and negative except above Subjective weak in bed Objective Last 24 Hour Vital Signs Date Time Temp Pulse Resp B/P (MAP) Pulse Ox O2 Delivery O2 Flow Rate FiO2 12/13/16 08:57 140/70 12/13/16 08:57 98 140/70 12/13/16 08:00 98.1 98 21 140/70 Room Air 12/13/16 00:00 97.9 98 18 125/70 92 Room Air 12/12/16 20:00 98.1 99 18 128/69 92 Room Air 12/12/16 19:50 102 18 Room Air 12/12/16 19:25 97.5 12/12/16 12:00 97.5 91 20 126/71 97 Room Air Height (Feet): 5 Height (Inches): 10.00 Weight (Pounds): 330 General Appearance: alert EENT: normal ENT inspection Neck: normal alignment Cardiovascular: normal peripheral pulses, normal rate, regular rhythm Respiratory/Chest: chest wall non-tender, lungs clear, normal breath sounds Abdomen: normal bowel sounds, non tender, soft Extremities: normal inspection Edema: no edema noted Arm (L), no edema noted Arm (R), no edema noted Leg (L), no edema noted Leg (R), no edema noted Pedal (L), no edema noted Pedal (R), no edema noted Generalized Neurologic: responsive, motor weakness Skin: normal pigmentation, warm/dry MARQUEZ FOY Dec 13, 2016 10:26
[2016-12-13 12:02] VITALS: BP 153/96
[2016-12-13] MEDS: cefTRIAXone 2 GM in D5W 110 ML IVPB SCH (12:12)
--- NOTE | 2016-12-13 13:07 | General Progress Note ---
Assessment/Plan Assessment/Plan (1) Osteosarcoma of femur (2) Morbid obesity (3) Chronic pain syndrome (4) Seizure disorder We will continued on Fentanyl patch, morphine, Oxycodone and Dilaudid. Pt was d/w Dr. Muhammad and he concurred. Subjective Date patient seen: Dec 13, 2016 Time patient seen: 11:45 - am Allergies: Coded Allergies: KETOROLAC (Verified Allergy, Severe, 08/06/16) ASPIRIN (Verified Allergy, Intermediate, 08/06/16) CEPHALEXIN (Verified Allergy, Mild, 12/13/14) FISH DERIVED (Unverified Allergy, Unknown, 08/29/16) PEANUT (Verified Allergy, Unknown, 11/19/15) Uncoded Allergies: fish (Allergy, Unknown, 08/12/16) Subjective REVIEW OF SYSTEMS: Denies rash, fever, chills, sweating, dizziness, drowsiness, blurred vision, sore throat, change in weight. No chest pain. He is complaining of low back and lower extremity pain. SUBJECTIVE: Patient is walking with cane. He reports that the pain has been controlled and tolerated on the medications. Objective Last 24 Hour Vital Signs Date Time Temp Pulse Resp B/P (MAP) Pulse Ox O2 Delivery O2 Flow Rate FiO2 12/13/16 12:02 98.4 99 20 153/96 93 Room Air 12/13/16 09:28 98.1 12/13/16 08:57 140/70 12/13/16 08:57 98 140/70 12/13/16 08:00 98.1 98 21 140/70 Room Air 12/13/16 00:00 97.9 98 18 125/70 92 Room Air 12/12/16 20:00 98.1 99 18 128/69 92 Room Air 12/12/16 19:50 102 18 Room Air Height (Feet): 5 Height (Inches): 10.00 Weight (Pounds): 330 Objective GENERAL: Alert and oriented x3. HEENT: PERRLA. NECK: Range of motion is full in all direction. No tenderness to paracervical muscles. No adenopathy. LUNGS: Decreased breath sounds bilaterally. HEART: Regular. ABDOMEN: Obese, tenderness to palpation BACK: Range of motion is decreased on flexion and extension with tenderness to paraspinal muscles. No tenderness to trapezius muscles. EXTREMITIES: No cyanosis, no clubbing, no edema. NEUROLOGICAL EXAM: Lower extremities range of motion is decreased due to patient's medical condition with motor being 4/5 in all muscles bilaterally. LIA HAGEN Dec 13, 2016 13:07
--- NOTE | 2016-12-13 15:12 | Pulmonology Progress Note ---
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) RLL open wound chronic pain syndrome seizure disorder HTN hep C psychiatric disorder anemia of chronic disease morbid obesity GERD diarrhea PTSD lactic acidosis PLAN OF CARE MS floor O2 HHN steroids change to oral in am empiric abx sputum cx a/tussive prn CXR no acute cardiopulmonary pathology wound care as per wound nurse recommendations pain management pain specialist follows seizure precautions continue Tegretol, Dilantin, Topamax, Depakote BP management with [facility] and [facility], optimize as needed psych follows optimized psych medication regimen onco follows PT/OT DVT prophylaxis monitor counts, remain at baseline stool C dif negative, off Flagyl can be dc from pulmonary standpoint on oral medrol dose pack- per PMD , case discussed and evaluated by supervising physician taper steroids 1L NS for low Na Subjective Allergies: Coded Allergies: KETOROLAC (Verified Allergy, Severe, 08/06/16) ASPIRIN (Verified Allergy, Intermediate, 08/06/16) CEPHALEXIN (Verified Allergy, Mild, 12/13/14) FISH DERIVED (Unverified Allergy, Unknown, 08/29/16) PEANUT (Verified Allergy, Unknown, 11/19/15) Uncoded Allergies: fish (Allergy, Unknown, 08/12/16) Subjective no chest pain,no SOB + cough, dry, no hemoptysis afebrile, leukocytosis resolved on RA pulse oximetry stable Objective Last 24 Hour Vital Signs Date Time Temp Pulse Resp B/P (MAP) Pulse Ox O2 Delivery O2 Flow Rate FiO2 12/13/16 12:02 98.4 99 20 153/96 93 Room Air 12/13/16 09:28 98.1 12/13/16 08:57 140/70 12/13/16 08:57 98 140/70 12/13/16 08:00 98.1 98 21 140/70 Room Air 12/13/16 00:00 97.9 98 18 125/70 92 Room Air 12/12/16 20:00 98.1 99 18 128/69 92 Room Air 12/12/16 19:50 102 18 Room Air Objective General Appearance: no acute distress, other - morbidly obese male HEENT: normocephalic, atraumatic, anicteric, mucous membranes moist Respiratory/Chest: decreased breath sounds Cardiovascular: normal rate, regular rhythm, no JVD Abdomen: normal bowel sounds, soft, non tender - obese Skin: other - RLL open wound 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: no motor/sensory deficits, alert, oriented x 3, responsive Musculoskeletal: normal muscle bulk Current Medications Medications (Trade) Dose Ordered Sig/Robert Route PRN Reason Start Time Stop Time Status Last Admin Dose Admin Albuterol/ Ipratropium (DuoNeb 0.5-3(2.5)mg/3ml) 3 ml Q4H PRN HHN dyspnea 12/12/16 14:00 12/15/16 13:59 Amitriptyline HCl (Elavil) 25 mg BEDTIME ORAL 12/09/16 21:00 01/06/17 20:59 12/12/16 20:59 Amlodipine Besylate (Norvasc) 10 mg DAILY ORAL 12/09/16 09:00 01/07/17 08:59 12/13/16 08:57 Azithromycin (Zithromax) 250 mg DAILY ORAL 12/09/16 09:00 12/14/16 15:59 12/13/16 08:56 Carbamazepine (TEGretol) 300 mg Q12HR ORAL 12/09/16 09:00 01/06/17 20:59 12/13/16 08:55 Ceftriaxone Sodium 2 gm/ Dextrose 110 ml @ 220 mls/hr Q24H IVPB 12/09/16 12:00 12/15/16 11:59 12/13/16 12:12 Dextrose (Dextrose 50%) STAT PRN IV Hypoglycemia 12/09/16 15:45 01/06/17 15:44 Divalproex Sodium (Depakote ER) 1,000 mg EVERY 12 HOURS ORAL 12/09/16 09:00 01/06/17 20:59 12/13/16 08:56 Fentanyl (Duragesic) 1 patch Q72H TDERMAL 12/11/16 21:00 12/18/16 20:59 12/11/16 21:18 Heparin Sodium (Porcine) (Heparin 5000 units/ml) 5,000 units EVERY 12 HOURS SUBQ 12/09/16 09:00 01/06/17 20:59 12/13/16 09:02 Hydromorphone HCl (Dilaudid) 2 mg Q4H PRN IVP severe breakthrough pain 12/09/16 06:45 12/15/16 14:44 12/13/16 13:58 Lisinopril (Prinivil) 20 mg DAILY ORAL 12/09/16 09:00 01/08/17 08:59 12/13/16 08:57 Lorazepam (Ativan) 2 mg Q8H PRN ORAL Agitation 12/09/16 12:30 12/16/16 12:29 12/12/16 04:45 Miscellaneous Medication (fentaNYL Destruction) 1 ea Q72H MISC 12/11/16 21:00 01/10/17 20:59 12/11/16 21:21 Morphine Sulfate (Morphine Sulfate) 4 mg Q4H PRN IVP severe pain 7-10 12/09/16 09:00 12/14/16 16:59 12/13/16 12:14 Naloxone HCl (Narcan) 0.1 mg PRN IV Sedation scale 3 or 4 12/09/16 06:15 01/07/17 14:44 Nitroglycerin (Ntg) 0.4 mg Q5M X 3 DOSES PRN SL Prn Chest Pain 12/09/16 06:15 01/06/17 15:44 Ondansetron HCl (Zofran) 4 mg Q6H PRN IVP Nausea & Vomiting 12/09/16 09:45 01/06/17 15:44 Oxycodone HCl (Roxicodone) 10 mg Q6H PRN ORAL moderate Breakthrough Pain 12/09/16 08:45 12/15/16 14:44 Phenytoin (Dilantin) 250 mg DAILY ORAL 12/09/16 09:00 01/07/17 08:59 12/12/16 10:03 Prednisone (predniSONE) 60 mg Taper DAILY ORAL 12/13/16 09:00 12/19/16 08:59 12/13/16 08:56 Promethazine HCl/ Codeine (Phenergan with Codeine) 5 ml Q6H PRN ORAL cough 12/09/16 09:45 01/06/17 15:44 Quetiapine Fumarate (SEROquel) 100 mg BEDTIME ORAL 12/09/16 21:00 01/08/17 20:59 12/12/16 21:15 Temazepam (Restoril) 15 mg HSPRN PRN ORAL Insomnia 12/09/16 15:45 12/14/16 15:44 12/11/16 02:55 Carreno (Vanchtein),Almita FOX Dec 13, 2016 15:12
[2016-12-13 16:00] VITALS: BP 140/76
--- NOTE | 2016-12-13 18:48 | General Progress Note ---
Assessment/Plan Status: stable, progressing Assessment/Plan ptsd seroquel and ativan the pt is reluctant to take any other meds Subjective Date patient seen: Dec 13, 2016 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: Reports: anxiety, depressed, emotional problems Allergies: Coded Allergies: KETOROLAC (Verified Allergy, Severe, 08/06/16) ASPIRIN (Verified Allergy, Intermediate, 08/06/16) CEPHALEXIN (Verified Allergy, Mild, 12/13/14) FISH DERIVED (Unverified Allergy, Unknown, 08/29/16) PEANUT (Verified Allergy, Unknown, 11/19/15) Uncoded Allergies: fish (Allergy, Unknown, 08/12/16) Subjective the pt is manipulative and lingering around nursing station and is med seeking. the pt was calmer today less anxious Objective Last 24 Hour Vital Signs Date Time Temp Pulse Resp B/P (MAP) Pulse Ox O2 Delivery O2 Flow Rate FiO2 12/13/16 16:00 98.2 98 20 140/76 93 Room Air 12/13/16 12:02 98.4 99 20 153/96 93 Room Air 12/13/16 09:28 98.1 12/13/16 08:57 140/70 12/13/16 08:57 98 140/70 12/13/16 08:00 98.1 98 21 140/70 Room Air 12/13/16 00:00 97.9 98 18 125/70 92 Room Air 12/12/16 20:00 98.1 99 18 128/69 92 Room Air 12/12/16 19:50 102 18 Room Air Intake and Output 12/13/16 12/14/16 19:00 07:00 # Bowel Movements 1 Height (Feet): 5 Height (Inches): 10.00 Weight (Pounds): 330 General Appearance: no apparent distress, alert, obese Neurologic: alert, oriented x 3, responsive, depressed affect Bret Manuel M.D. Dec 13, 2016 18:48
--- NOTE | 2016-12-13 19:21 | Infectious Diseases Prog Note ---
Assessment/Plan Problems: (1) COPD (chronic obstructive pulmonary disease) Assessment & Plan: with acute exacerbation , improving on ceftriaxone and Zithromax empirically, continue inhalers and oxygen, taper steroids , may switch to oral levaquin to finish his course for 7 days (2) Osteosarcoma of femur Assessment & Plan: S/P radiation, and chemo, further management as per oncology (3) Diarrhea in adult patient Assessment & Plan: stool for C diff is negative , continue supportive care Subjective Constitutional: Reports: fatigue HEENT: Reports: no symptoms Respiratory: Reports: productive cough Breasts: Reports: no symptoms Cardiovascular: Reports: no symptoms Gastrointestinal/Abdominal: Reports: diarrhea Genitourinary: Reports: no symptoms Neurologic: Reports: weakness Psychiatric: Reports: depression Skin: Reports: no symptoms Endocrine: Reports: no symptoms Musculoskeletal: Reports: pain Allergies: Coded Allergies: KETOROLAC (Verified Allergy, Severe, 08/06/16) ASPIRIN (Verified Allergy, Intermediate, 08/06/16) CEPHALEXIN (Verified Allergy, Mild, 12/13/14) FISH DERIVED (Unverified Allergy, Unknown, 08/29/16) PEANUT (Verified Allergy, Unknown, 11/19/15) Uncoded Allergies: fish (Allergy, Unknown, 08/12/16) Objective Vital Signs Last 24 Hour Vital Signs Date Time Temp Pulse Resp B/P (MAP) Pulse Ox O2 Delivery O2 Flow Rate FiO2 12/13/16 16:00 98.2 98 20 140/76 93 Room Air 12/13/16 12:02 98.4 99 20 153/96 93 Room Air 12/13/16 09:28 98.1 12/13/16 08:57 140/70 12/13/16 08:57 98 140/70 12/13/16 08:00 98.1 98 21 140/70 Room Air 12/13/16 00:00 97.9 98 18 125/70 92 Room Air 12/12/16 20:00 98.1 99 18 128/69 92 Room Air 12/12/16 19:50 102 18 Room Air Height (Feet): 5 Height (Inches): 10.00 Weight (Pounds): 330 General Appearance: WD/WN, no acute distress HEENT: normocephalic, atraumatic, anicteric, mucous membranes moist, PERRL Respiratory/Chest: chest wall non-tender, no respiratory distress, no accessory muscle use, decreased breath sounds, expiratory wheezing Cardiovascular: normal peripheral pulses, normal rate, regular rhythm, no gallop/murmur, no JVD Abdomen: normal bowel sounds, soft, non tender, no organomegaly, non distended , no mass, no scars Genitourinary: normal external genitalia Extremities: no cyanosis, no clubbing Skin: no rash, no lesions 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: alert, oriented x 3, responsive Lymphatic: no neck adenopathy Current Medications Medications (Trade) Dose Ordered Sig/Robert Route PRN Reason Start Time Stop Time Status Last Admin Dose Admin Albuterol/ Ipratropium (DuoNeb 0.5-3(2.5)mg/3ml) 3 ml Q4H PRN HHN dyspnea 12/12/16 14:00 12/15/16 13:59 Amitriptyline HCl (Elavil) 25 mg BEDTIME ORAL 12/09/16 21:00 01/06/17 20:59 12/12/16 20:59 Amlodipine Besylate (Norvasc) 10 mg DAILY ORAL 12/09/16 09:00 01/07/17 08:59 12/13/16 08:57 Azithromycin (Zithromax) 250 mg DAILY ORAL 12/09/16 09:00 12/14/16 15:59 12/13/16 08:56 Carbamazepine (TEGretol) 300 mg Q12HR ORAL 12/09/16 09:00 01/06/17 20:59 12/13/16 08:55 Ceftriaxone Sodium 2 gm/ Dextrose 110 ml @ 220 mls/hr Q24H IVPB 12/09/16 12:00 12/15/16 11:59 12/13/16 12:12 Dextrose (Dextrose 50%) STAT PRN IV Hypoglycemia 12/09/16 15:45 01/06/17 15:44 Divalproex Sodium (Depakote ER) 1,000 mg EVERY 12 HOURS ORAL 12/09/16 09:00 01/06/17 20:59 12/13/16 08:56 Fentanyl (Duragesic) 1 patch Q72H TDERMAL 12/11/16 21:00 12/18/16 20:59 12/11/16 21:18 Heparin Sodium (Porcine) (Heparin 5000 units/ml) 5,000 units EVERY 12 HOURS SUBQ 12/09/16 09:00 01/06/17 20:59 12/13/16 09:02 Hydromorphone HCl (Dilaudid) 2 mg Q4H PRN IVP severe breakthrough pain 12/09/16 06:45 12/15/16 14:44 12/13/16 19:03 Lisinopril (Prinivil) 20 mg DAILY ORAL 12/09/16 09:00 01/08/17 08:59 12/13/16 08:57 Lorazepam (Ativan) 2 mg Q8H PRN ORAL Agitation 12/09/16 12:30 12/16/16 12:29 12/12/16 04:45 Miscellaneous Medication (fentaNYL Destruction) 1 ea Q72H MISC 12/11/16 21:00 01/10/17 20:59 12/11/16 21:21 Morphine Sulfate (Morphine Sulfate) 4 mg Q4H PRN IVP severe pain 7-10 12/09/16 09:00 12/14/16 16:59 12/13/16 16:24 Naloxone HCl (Narcan) 0.1 mg PRN IV Sedation scale 3 or 4 12/09/16 06:15 01/07/17 14:44 Nitroglycerin (Ntg) 0.4 mg Q5M X 3 DOSES PRN SL Prn Chest Pain 12/09/16 06:15 01/06/17 15:44 Ondansetron HCl (Zofran) 4 mg Q6H PRN IVP Nausea & Vomiting 12/09/16 09:45 01/06/17 15:44 Oxycodone HCl (Roxicodone) 10 mg Q6H PRN ORAL moderate Breakthrough Pain 12/09/16 08:45 12/15/16 14:44 Phenytoin (Dilantin) 250 mg DAILY ORAL 12/09/16 09:00 01/07/17 08:59 12/12/16 10:03 Prednisone (predniSONE) 60 mg Taper DAILY ORAL 12/13/16 09:00 12/19/16 08:59 12/13/16 08:56 Promethazine HCl/ Codeine (Phenergan with Codeine) 5 ml Q6H PRN ORAL cough 12/09/16 09:45 01/06/17 15:44 Quetiapine Fumarate (SEROquel) 100 mg BEDTIME ORAL 12/09/16 21:00 01/08/17 20:59 12/12/16 21:15 Temazepam (Restoril) 15 mg HSPRN PRN ORAL Insomnia 12/09/16 15:45 12/14/16 15:44 12/11/16 02:55 Uri Tesfaye M.D. Dec 13, 2016 19:21
[2016-12-13 20:00] VITALS: BP 118/79
--- NOTE | 2016-12-13 21:55 | General Progress Note ---
Assessment/Plan Assessment/Plan ASSESSMENT AND RECOMMENDATIONS: 1. Osteosarcoma, s/p radiation and chemotherapy. --> will review prior records --> recommend clinical trial with Dr. Rausch at [facility] 2. Anemia secondary to chronic disease. Work up if counts drop below 10 -> no labs for today 3. Leukocytosis, likely secondary to reactive process. Improved 4. Elevated blood sugar. Continue to monitor. 5. Sepsis with an elevated lactate at 2.9. Continue to monitor. 6. Hepatitis C. 7. Morbid obesity. 8. Seizure disorder. Subjective Constitutional: Reports: no symptoms HEENT: Reports: no symptoms Cardiovascular: Reports: no symptoms Respiratory: Reports: no symptoms Gastrointestinal/Abdominal: Reports: no symptoms Genitourinary: Reports: no symptoms 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: Reports: no symptoms Endocrine: Reports: no symptoms Hematologic/Lymphatic: Reports: no symptoms Allergies: Coded Allergies: KETOROLAC (Verified Allergy, Severe, 08/06/16) ASPIRIN (Verified Allergy, Intermediate, 08/06/16) CEPHALEXIN (Verified Allergy, Mild, 12/13/14) FISH DERIVED (Unverified Allergy, Unknown, 08/29/16) PEANUT (Verified Allergy, Unknown, 11/19/15) Uncoded Allergies: fish (Allergy, Unknown, 08/12/16) Subjective NAD Objective Last 24 Hour Vital Signs Date Time Temp Pulse Resp B/P (MAP) Pulse Ox O2 Delivery O2 Flow Rate FiO2 12/13/16 20:00 97.9 98 18 118/79 94 Room Air 12/13/16 16:00 98.2 98 20 140/76 93 Room Air 12/13/16 12:02 98.4 99 20 153/96 93 Room Air 12/13/16 09:28 98.1 12/13/16 08:57 140/70 12/13/16 08:57 98 140/70 12/13/16 08:00 98.1 98 21 140/70 Room Air 12/13/16 00:00 97.9 98 18 125/70 92 Room Air Intake and Output 12/13/16 12/14/16 19:00 07:00 # Bowel Movements 1 Height (Feet): 5 Height (Inches): 10.00 Weight (Pounds): 330 General Appearance: no apparent distress EENT: normal ENT inspection Neck: normal inspection Respiratory/Chest: chest wall non-tender Extremities: non-tender Kleynberg,Bin L. Dec 13, 2016 21:55
[2016-12-13] MEDS: LORazepam 1mg tab ORAL PRN (23:47)
[2016-12-14] VITALS: BP 115/81
[2016-12-14 04:06] VITALS: BP 151/92
[2016-12-14 08:00] VITALS: BP 153/92
--- NOTE | 2016-12-14 08:24 | General Progress Note ---
Assessment/Plan Assessment/Plan (1) Osteosarcoma of femur (2) Morbid obesity (3) Chronic pain syndrome (4) Seizure disorder We will continue Fentanyl patch, morphine, Oxycodone and Dilaudid. Pt was d/w Dr. Muhammad and he concurred. Subjective Date patient seen: Dec 14, 2016 Time patient seen: 07:30 - am Allergies: Coded Allergies: KETOROLAC (Verified Allergy, Severe, 08/06/16) ASPIRIN (Verified Allergy, Intermediate, 08/06/16) CEPHALEXIN (Verified Allergy, Mild, 12/13/14) FISH DERIVED (Unverified Allergy, Unknown, 08/29/16) PEANUT (Verified Allergy, Unknown, 11/19/15) Uncoded Allergies: fish (Allergy, Unknown, 08/12/16) Subjective REVIEW OF SYSTEMS: Denies rash, fever, chills, sweating, dizziness, drowsiness, blurred vision, sore throat, change in weight. No chest pain. He is complaining of low back and lower extremity pain. SUBJECTIVE: Patient is in no acute distress and the medications have allowed him to tolerate the pain. Objective Last 24 Hour Vital Signs Date Time Temp Pulse Resp B/P (MAP) Pulse Ox O2 Delivery O2 Flow Rate FiO2 12/14/16 04:06 97.3 91 20 151/92 96 Room Air 12/14/16 01:33 98 20 Room Air 21 12/14/16 00:00 97.5 111 18 115/81 93 Room Air 12/13/16 20:00 97.9 98 18 118/79 94 Room Air 12/13/16 16:00 98.2 98 20 140/76 93 Room Air 12/13/16 12:02 98.4 99 20 153/96 93 Room Air 12/13/16 09:28 98.1 12/13/16 08:57 140/70 12/13/16 08:57 98 140/70 Height (Feet): 5 Height (Inches): 10.00 Weight (Pounds): 330 Objective GENERAL: Alert and oriented x3. HEENT: PERRLA. NECK: Range of motion is full in all direction. No tenderness to paracervical muscles. No adenopathy. LUNGS: Decreased breath sounds bilaterally. HEART: Regular. ABDOMEN: Obese, tenderness to palpation BACK: Range of motion is decreased on flexion and extension with tenderness to paraspinal muscles. No tenderness to trapezius muscles. EXTREMITIES: No cyanosis, no clubbing, no edema. NEUROLOGICAL EXAM: Lower extremities range of motion is decreased due to patient's medical condition with motor being 4/5 in all muscles bilaterally. LIA HAGEN Dec 14, 2016 08:24
[2016-12-14] MEDS: Lisinopril 20mg tab ORAL SCH (08:25)
[2016-12-14] MEDS: carBAMazepine 200mg tab ORAL SCH (08:26)
[2016-12-14] MEDS: Azithromycin 250mg tab ORAL SCH (08:26)
[2016-12-14] MEDS: Depakote ER 500mg tab ORAL SCH (08:28)
[2016-12-14] MEDS: Phenytoin Susp 100mg/4ml ORAL SCH (08:28)
[2016-12-14] MEDS: Morphine Sulfate 4mg/ml Inj IVP PRN ×3 (08:31→18:15)
[2016-12-14] MEDS: Heparin 5000 units/ml inj SUBQ SCH (08:35)
--- NOTE | 2016-12-14 11:56 | General Progress Note ---
Assessment/Plan Problem List: (1) COPD exacerbation ICD Codes: J44.1 - Chronic obstructive pulmonary disease with (acute) exacerbation SNOMED: 666423674, 334459265 (2) Leukocytosis ICD Codes: D72.829 - Elevated white blood cell count, unspecified SNOMED: 245887353, 120737362 (3) Chronic pain ICD Codes: G89.29 - Other chronic pain SNOMED: 37031300 (4) Morbid obesity ICD Codes: E66.01 - Morbid (severe) obesity due to excess calories SNOMED: 487170362 Status: stable, progressing, tolerating diet Assessment/Plan ot [pt diet pain control abx cbc bmp am dc to snf Subjective Allergies: Coded Allergies: KETOROLAC (Verified Allergy, Severe, 08/06/16) ASPIRIN (Verified Allergy, Intermediate, 08/06/16) CEPHALEXIN (Verified Allergy, Mild, 12/13/14) FISH DERIVED (Unverified Allergy, Unknown, 08/29/16) PEANUT (Verified Allergy, Unknown, 11/19/15) Uncoded Allergies: fish (Allergy, Unknown, 08/12/16) All Systems: reviewed and negative except above Subjective weak in bed Objective Last 24 Hour Vital Signs Date Time Temp Pulse Resp B/P (MAP) Pulse Ox O2 Delivery O2 Flow Rate FiO2 12/14/16 08:27 91 151/92 12/14/16 08:25 151/92 12/14/16 08:00 97.8 90 20 153/92 98 Room Air 12/14/16 04:06 97.3 91 20 151/92 96 Room Air 12/14/16 01:33 98 20 Room Air 21 12/14/16 00:00 97.5 111 18 115/81 93 Room Air 12/13/16 20:00 97.9 98 18 118/79 94 Room Air 12/13/16 16:00 98.2 98 20 140/76 93 Room Air 12/13/16 12:02 98.4 99 20 153/96 93 Room Air Height (Feet): 5 Height (Inches): 10.00 Weight (Pounds): 330 General Appearance: alert EENT: normal ENT inspection Neck: normal alignment Cardiovascular: normal peripheral pulses, normal rate, regular rhythm Respiratory/Chest: chest wall non-tender, lungs clear, normal breath sounds Abdomen: normal bowel sounds, non tender, soft Extremities: normal inspection Edema: no edema noted Arm (L), no edema noted Arm (R), no edema noted Leg (L), no edema noted Leg (R), no edema noted Pedal (L), no edema noted Pedal (R), no edema noted Generalized Neurologic: responsive, motor weakness Skin: normal pigmentation, warm/dry MARQUEZ FOY Dec 14, 2016 11:56
[2016-12-14 12:00] VITALS: BP 140/87
[2016-12-14] MEDS: cefTRIAXone 2 GM in D5W 110 ML IVPB SCH (14:06)
--- NOTE | 2016-12-14 14:11 | GI Initial Consult Note ---
History of Present Illness General Date patient seen: Dec 14, 2016 Time patient seen: 14:03 Reason for Hospitalization: Chest Pain Referring physician: Dr. Singh Reason for Consultation: CHRONIC DIARRHEA Present Illness HPI Patient presents with chest pain, cough with sputum production. He also has subjective fever and chills. Patient has a history of COPD. He also has a history of chronic pain and narcotic dependence. He also has a history of sarcoma with metastatic disease. He states that he is in pain all over his body and in his leg. Has a history of seizures and states she had a seizure today. He believes this is secondary to his ongoing pain. He has no other complaints. GI consulted for chronic diarrhea. HPI as noted above. Pt seen on floor, awake A&Ox4 NAD with no active s/sx of N/V. Per patient he's had loose watery diarrhea for over 4-5 months. Recent cdiff negative, pending stool culture. Pt has history of Hep C. s/p EGD 11/14 with esophagitis. Home Meds Reported Medications Levofloxacin* (LEVAQUIN*) 500 Mg Tablet, 500 MG ORAL DAILY for copd for 4 Days, TAB 12/11/16 Oxycodone Hcl Ir* (ROXICODONE IR*) 5 Mg Tablet, 10 MG ORAL Q6H Y for For Pain, # 30 TAB 0 Refills 12/11/16 Methylprednisolone (Methylprednisolone*) 4 Mg Tab.ds.pk, 4 MG IV Q12HR, #1 EA 0 Refills 12/11/16 Quetiapine Fumarate* (SEROQUEL*) 100 Mg Tablet, 100 MG ORAL QHS, TAB 12/11/16 Promethazine HCl/Codeine (Prometh-Codein 6.25-10 mg/5 ml) 5 Ml Syrup, 5 ML PO Q6HR Y for For Cough, ML 12/11/16 Naloxone Hcl (NALOXONE HCL*) 0.4 Mg/1 Ml Vial, 0.4 MG IV Y for sedation, VIAL 12/11/16 Morphine Sulfate/Pf (Morphine 1 mg/2 ml Syringe) 1 Mg/2 Ml Syringe, 4 MG IV Q4HR Y for For Pain 12/11/16 Nitroglycerin (NITROGLYCERIN) 0.4 Mg Tab.subl, 0.4 MG SL q5minx 3doses Y for chest pain, TAB 12/11/16 Hydromorphone HCl/Pf (DILAUDID 2 MG/ML SYRINGE) 2 Mg/1 Ml Syringe, 2 MG IV Q4HR Y for For Pain 12/11/16 Temazepam* (TEMAZEPAM*) 30 Mg Capsule, 15 MG ORAL BEDTIME Y for Insomnia, CAP 08/06/16 Polyethylene Glycol 3350* (POLYETHYLENE GLYCOL 3350*) 17 Gm Powd.pack, 17 GM ORAL BEDTIME Y for Constipation, PACKET 11/23/15 Trazodone* (TRAZODONE*) 150 Mg Tablet, 100 MG ORAL BEDTIME, TAB 11/23/15 Amitriptyline HCl (ELAVIL*) 25 Mg Tablet, 25 MG ORAL BEDTIME, TAB 11/23/15 Fentanyl 100MCG Patch* (FENTANYL 100MCG PATCH*) 1 Each Patch.td72, 1 PATCH TDERMAL EVERY 72 HOURS, PATCH 11/19/15 Phenytoin (DILANTIN-125) 125 Mg/5 Ml Oral.susp, 250 MG PO DAILY, ML 11/19/15 Divalproex Sodium* (DEPAKOTE ER*) 500 Mg Tab.er.24h, 1000 MG ORAL EVERY 12 HOURS , TAB 11/19/15 Ondansetron Odt* (ZOFRAN ODT*) 4 Mg Tab.rapdis, 4 MG ORAL Q4HR Y for Nausea & Vomiting, #30 TAB 12/14/14 Acetaminophen* (ACETAMINOPHEN 325MG TABLET*) 325 Mg Tablet, 650 MG ORAL Q6H Y for Mild Pain/Temp > 100.5, TAB 12/14/14 Calcium Carbonate (Calcium) 500 Mg Tab, 500 MG ORAL Q4HR Y for Per rx protocol, #30 TAB 0 Refills 12/14/14 Topiramate* (TOPAMAX*) 100 Mg Tablet, 50 MG ORAL TWICE A DAY, #60 TAB 0 Refills 12/14/14 Carbamazepine (TEGRETOL*) 200 Mg Tablet, 300 MG PO Q12HR, #10 TAB 0 Refills 12/14/14 Fluoxetine Hcl* (PROZAC*) 20 Mg Capsule, 20 MG ORAL DAILY, CAP 12/14/14 Amlodipine Besylate (Norvasc) 10 Mg Tab, 10 MG ORAL DAILY, TAB 12/14/14 Lisinopril (LISINOPRIL*) 20 Mg Tablet, 20 MG ORAL DAILY, TAB 12/14/14 Discontinued Reported Medications Hydrocodone Bit/Acetaminophen 5-325* (NORCO 5-325*) 1 Each Tablet, 1 TAB ORAL Q4H Y for For Pain, TAB 0 Refills 08/06/16 Divalproex Sodium* (DEPAKOTE ER*) 500 Mg Tab.er.24h, 750 MG ORAL DAILY, TAB 08/06/16 Promethazine Hcl* (PHENERGAN*) 25 Mg Tablet, 25 MG ORAL Q4HR, #15 TAB 0 Refills 11/23/15 Heparin Sod (Porcine) (HEPARIN SODIUM*) 5 000/1 Ml Vial, 5000 UNITS SUBQ EVERY 12 HOURS, VIAL 11/23/15 Hydrochlorothiazide* (HYDROCHLOROTHIAZIDE*) 12.5 Mg Tablet, 12.5 MG ORAL DAILY, TAB 11/19/15 Docusate Sodium* (COLACE*) 100 Mg Capsule, 100 MG ORAL DAILY, CAP 11/19/15 Dicyclomine Hcl* (BENTYL*) 10 Mg Capsule, 20 MG ORAL FOUR TIMES A DAY, CAP 11/19/15 Lorazepam* (ATIVAN*) 2 Mg Tablet, 2 MG ORAL EVERY 6 HOURS, TAB 11/19/15 Fluticasone/Salmeterol (Advair 100-50 Diskus) 1 Each Blst.w.dev, 1 PUFF INH BID , EA 11/19/15 Quetiapine Fumarate (SEROQUEL XR) 400 Mg Tab.er.24h, 400 MG ORAL DAILY, TAB 12/14/14 Methocarbamol* (ROBAXIN-750*) 750 Mg Tablet, 750 MG PO QID Y for Muscle Spasm, # 28 TAB 0 Refills 12/14/14 Potassium Chloride (Potassium Chloride) 20 Meq Tablet.er, 20 MEQ PO DAILY, TAB 12/14/14 Hydrocodone Bit/Acetaminophen 5-325* (NORCO 5-325 TABLET*) 1 Each Tablet, 2 TAB ORAL Q4H Y for For Pain, TAB 12/14/14 Morphine Sulfate (Morphine Sulfate ER) 30 Mg Cpmp.24hr, 30 MG PO Q8HR, CAP 12/14/14 Morphine HCl (Morphine Sulfate ER) 15 Mg Tab, 15 MG ORAL Q6H Y for Severe Pain ( Pain Scale 7-10), TAB 12/14/14 Magnesium Hydroxide* (MILK OF MAGNESIA*) 2,400 Mg/10 Ml Oral.susp, 30 ML ORAL DAILY Y for Constipation, ML 12/14/14 Furosemide* (LASIX*) 40 Mg Tablet, 40 MG ORAL DAILY, TAB 12/14/14 Zolpidem Tartrate* (AMBIEN*) 10 Mg Tablet, 15 MG ORAL HS Y for Insomnia, TAB 12/13/14 Med list reviewed/reconciled: Yes Allergies: Coded Allergies: KETOROLAC (Verified Allergy, Severe, 08/06/16) ASPIRIN (Verified Allergy, Intermediate, 08/06/16) CEPHALEXIN (Verified Allergy, Mild, 12/13/14) FISH DERIVED (Unverified Allergy, Unknown, 08/29/16) PEANUT (Verified Allergy, Unknown, 11/19/15) Uncoded Allergies: fish (Allergy, Unknown, 08/12/16) Patient History History Provided By: Patient, Medical Record PMH Narrative Past Medical History: see triage record, old chart reviewed, DM, COPD, GERD, seizures, other - Hepatitis, Sarcoma Social History: Denies: smoking, alcohol use, drug use Reviewed Nursing Documentation: PMH: Agreed, PSxH: Agreed Nursing Documentation-PMH Hx Cardiac Problems: Yes Hx Hypertension: Yes Hx COPD: Yes Hx Cancer: Yes - Sarcoma R femur and back Hx Gastrointestinal Problems: Yes Hx Neurological Problems: Yes - mononeuritis Hx Encephalitis: Yes - encephalopathy Hx Seizures: Yes Social History: Reports: smoking Review of Systems All Other Systems: negative except mentioned in HPI Physical Exam Vital Signs Date Time Temp Pulse Resp B/P (MAP) Pulse Ox O2 Delivery O2 Flow Rate FiO2 12/10/16 08:00 96.8 85 114/80 Room Air 12/10/16 08:02 20 21 12/10/16 12:00 96 Sp02 EP Interpretation: reviewed General Appearance: well appearing, no apparent distress, alert, obese Head: normocephalic EENT: PERRL/EOMI, normal ENT inspection Neck: supple Respiratory: normal breath sounds, no respiratory distress Cardiovascular: normal rate Gastrointestinal: normal inspection, non tender, soft Rectal: deferred Neurologic: normal inspection, alert, oriented x3, responsive Psychiatric: normal inspection, judgement/insight normal, memory normal Skin: normal inspection, normal color, no rash, warm/dry, palpation normal Lymphatic: normal inspection, no adenopathy Current Medications Current Medications Medications (Trade) Dose Ordered Sig/Robert Route PRN Reason Start Time Stop Time Status Last Admin Dose Admin Albuterol/ Ipratropium (DuoNeb 0.5-3(2.5)mg/3ml) 3 ml Q4H PRN HHN dyspnea 12/12/16 14:00 12/15/16 13:59 Amitriptyline HCl (Elavil) 25 mg BEDTIME ORAL 12/09/16 21:00 01/06/17 20:59 12/13/16 20:27 Amlodipine Besylate (Norvasc) 10 mg DAILY ORAL 12/09/16 09:00 01/07/17 08:59 12/14/16 08:27 Azithromycin (Zithromax) 250 mg DAILY ORAL 12/09/16 09:00 12/14/16 15:59 12/14/16 08:26 Carbamazepine (TEGretol) 300 mg Q12HR ORAL 12/09/16 09:00 01/06/17 20:59 12/14/16 08:26 Ceftriaxone Sodium 2 gm/ Dextrose 110 ml @ 220 mls/hr Q24H IVPB 12/09/16 12:00 12/15/16 11:59 12/13/16 12:12 Dextrose (Dextrose 50%) STAT PRN IV Hypoglycemia 12/09/16 15:45 01/06/17 15:44 Divalproex Sodium (Depakote ER) 1,000 mg EVERY 12 HOURS ORAL 12/09/16 09:00 01/06/17 20:59 12/14/16 08:28 Fentanyl (Duragesic) 1 patch Q72H TDERMAL 12/11/16 21:00 12/18/16 20:59 12/11/16 21:18 Heparin Sodium (Porcine) (Heparin 5000 units/ml) 5,000 units EVERY 12 HOURS SUBQ 12/09/16 09:00 01/06/17 20:59 12/14/16 08:35 Hydromorphone HCl (Dilaudid) 2 mg Q4H PRN IVP severe breakthrough pain 12/09/16 06:45 12/15/16 14:44 12/14/16 12:33 Lisinopril (Prinivil) 20 mg DAILY ORAL 12/09/16 09:00 01/08/17 08:59 12/14/16 08:25 Loperamide HCl (Imodium) 2 mg QID PRN ORAL Diarrhea 12/14/16 13:30 01/13/17 13:29 Lorazepam (Ativan) 2 mg Q8H PRN ORAL Agitation 12/09/16 12:30 12/16/16 12:29 12/13/16 23:47 Miscellaneous Medication (fentaNYL Destruction) 1 ea Q72H MISC 12/11/16 21:00 01/10/17 20:59 12/11/16 21:21 Morphine Sulfate (Morphine Sulfate) 4 mg Q4H PRN IVP severe pain 7-10 12/09/16 09:00 12/14/16 16:59 12/14/16 13:29 Naloxone HCl (Narcan) 0.1 mg PRN IV Sedation scale 3 or 4 12/09/16 06:15 01/07/17 14:44 Nitroglycerin (Ntg) 0.4 mg Q5M X 3 DOSES PRN SL Prn Chest Pain 12/09/16 06:15 01/06/17 15:44 Ondansetron HCl (Zofran) 4 mg Q6H PRN IVP Nausea & Vomiting 12/09/16 09:45 01/06/17 15:44 Oxycodone HCl (Roxicodone) 10 mg Q6H PRN ORAL moderate Breakthrough Pain 12/09/16 08:45 12/15/16 14:44 Phenytoin (Dilantin) 250 mg DAILY ORAL 12/09/16 09:00 01/07/17 08:59 12/14/16 08:28 Prednisone (predniSONE) 50 mg Taper DAILY ORAL 12/13/16 09:00 12/19/16 08:59 12/14/16 08:24 Promethazine HCl/ Codeine (Phenergan with Codeine) 5 ml Q6H PRN ORAL cough 12/09/16 09:45 01/06/17 15:44 Quetiapine Fumarate (SEROquel) 100 mg BEDTIME ORAL 12/09/16 21:00 01/08/17 20:59 12/13/16 20:27 Temazepam (Restoril) 15 mg HSPRN PRN ORAL Insomnia 12/09/16 15:45 12/14/16 15:44 12/11/16 02:55 GI: Plan Problems: (1) Chronic diarrhea (2) Hepatitis C (3) GERD (gastroesophageal reflux disease) (4) Morbid obesity (5) Abdominal pain Plan s/p EGD 11/14 >> esophagitis with negative bx cdiff negative colonoscopy tentatively scheduled for Wednesday. lactuose free/low residual/low fiber diet CLD tomorrow. Imodium prn >> will consider Lomotil. fu stool culture DM management H2B, avoid PPI PO hydration + electrolyte replacement fu labs outpatient Hep C treatment Discussed with Dr. Fraser. Thank you for this patient referral, we will follow. Laura Gray N.P. Dec 14, 2016 14:11
[2016-12-14] MEDS ORDERED: Lomotil 2.5mg tab ORAL PRN (14:15)
[2016-12-14 16:00] VITALS: BP_SYST 136; BP_SYST 160; BP_DIAS 67; BP_DIAS 95
[2016-12-14 19:51] VITALS: BP 137/70
[2016-12-14] MEDS ORDERED: Morphine Sulfate 4mg/ml Inj IM PRN (20:00)
[2016-12-14] MEDS: fentaNYL Destruction MISC SCH (21:00)
--- NOTE | 2016-12-14 21:49 | General Progress Note ---
Assessment/Plan Status: stable, progressing Assessment/Plan ptsd seroquel and ativan the pt is reluctant to take any other meds Subjective Date patient seen: Dec 14, 2016 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: Reports: anxiety, depressed, emotional problems Allergies: Coded Allergies: KETOROLAC (Verified Allergy, Severe, 08/06/16) ASPIRIN (Verified Allergy, Intermediate, 08/06/16) CEPHALEXIN (Verified Allergy, Mild, 12/13/14) FISH DERIVED (Unverified Allergy, Unknown, 08/29/16) PEANUT (Verified Allergy, Unknown, 11/19/15) Uncoded Allergies: fish (Allergy, Unknown, 08/12/16) Subjective the pt is med seeking. the pt was calmer today less anxious Objective Last 24 Hour Vital Signs Date Time Temp Pulse Resp B/P (MAP) Pulse Ox O2 Delivery O2 Flow Rate FiO2 12/14/16 19:51 97.5 75 21 137/70 97 12/14/16 16:00 97.9 106 20 160/95 96 Room Air 12/14/16 12:00 97.7 84 18 140/87 96 Room Air 12/14/16 08:27 91 151/92 12/14/16 08:25 151/92 12/14/16 08:16 99 20 Room Air 21 12/14/16 08:00 97.8 90 20 153/92 98 Room Air 12/14/16 04:06 97.3 91 20 151/92 96 Room Air 12/14/16 01:33 98 20 Room Air 21 12/14/16 00:00 97.5 111 18 115/81 93 Room Air Intake and Output 12/14/16 12/15/16 19:00 07:00 Intake Total 1320 ml Balance 1320 ml Intake Oral 1320 ml # Voids 6 Height (Feet): 5 Height (Inches): 10.00 Weight (Pounds): 330 General Appearance: no apparent distress, alert, morbidly obese Neurologic: alert, oriented x 3, responsive, depressed affect Bret Manuel M.D. Dec 14, 2016 21:48
--- NOTE | 2016-12-14 21:50 | General Progress Note ---
Assessment/Plan Assessment/Plan ASSESSMENT AND RECOMMENDATIONS: 1. Osteosarcoma, s/p radiation and chemotherapy. --> has been referred to Dr. Siegel 2. Anemia secondary to chronic disease. Work up if counts drop below 10 -> no labs for today 3. Leukocytosis, likely secondary to reactive process. Improved 4. Elevated blood sugar. Continue to monitor. 5. Sepsis with an elevated lactate at 2.9. Continue to monitor. 6. Hepatitis C. 7. Morbid obesity. 8. Seizure disorder. Subjective Constitutional: Reports: no symptoms HEENT: Reports: no symptoms Cardiovascular: Reports: no symptoms Respiratory: Reports: no symptoms Gastrointestinal/Abdominal: Reports: no symptoms Genitourinary: Reports: no symptoms 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: Reports: no symptoms Endocrine: Reports: no symptoms Hematologic/Lymphatic: Reports: no symptoms Allergies: Coded Allergies: KETOROLAC (Verified Allergy, Severe, 08/06/16) ASPIRIN (Verified Allergy, Intermediate, 08/06/16) CEPHALEXIN (Verified Allergy, Mild, 12/13/14) FISH DERIVED (Unverified Allergy, Unknown, 08/29/16) PEANUT (Verified Allergy, Unknown, 11/19/15) Uncoded Allergies: fish (Allergy, Unknown, 08/12/16) Subjective no f/c Objective Last 24 Hour Vital Signs Date Time Temp Pulse Resp B/P (MAP) Pulse Ox O2 Delivery O2 Flow Rate FiO2 12/14/16 19:51 97.5 75 21 137/70 97 12/14/16 16:00 97.9 106 20 160/95 96 Room Air 12/14/16 12:00 97.7 84 18 140/87 96 Room Air 12/14/16 08:27 91 151/92 12/14/16 08:25 151/92 12/14/16 08:16 99 20 Room Air 21 12/14/16 08:00 97.8 90 20 153/92 98 Room Air 12/14/16 04:06 97.3 91 20 151/92 96 Room Air 12/14/16 01:33 98 20 Room Air 21 12/14/16 00:00 97.5 111 18 115/81 93 Room Air Intake and Output 12/14/16 12/15/16 19:00 07:00 Intake Total 1320 ml Balance 1320 ml Intake Oral 1320 ml # Voids 6 Height (Feet): 5 Height (Inches): 10.00 Weight (Pounds): 330 General Appearance: no apparent distress EENT: normal ENT inspection Neck: normal inspection Cardiovascular: regular rhythm Respiratory/Chest: normal breath sounds Abdomen: non tender, soft Skin: normal pigmentation Bin Abbott Dec 14, 2016 21:50
--- NOTE | 2016-12-14 22:17 | Pulmonology Progress Note ---
Assessment/Plan Problems: (1) COPD exacerbation (2) Seizure (3) Psychiatric disorder (4) Hepatitis C (5) GERD (gastroesophageal reflux disease) Assessment/Plan improving respiratory treatment symptomatic treatment dc planning pain control psych f/u Subjective ROS Limited/Unobtainable: No Constitutional: Reports: no symptoms HEENT: Repors: no symptoms Respiratory: Reports: no symptoms Allergies: Coded Allergies: KETOROLAC (Verified Allergy, Severe, 08/06/16) ASPIRIN (Verified Allergy, Intermediate, 08/06/16) CEPHALEXIN (Verified Allergy, Mild, 12/13/14) FISH DERIVED (Unverified Allergy, Unknown, 08/29/16) PEANUT (Verified Allergy, Unknown, 11/19/15) Uncoded Allergies: fish (Allergy, Unknown, 08/12/16) Objective Last 24 Hour Vital Signs Date Time Temp Pulse Resp B/P (MAP) Pulse Ox O2 Delivery O2 Flow Rate FiO2 12/14/16 19:51 97.5 75 21 137/70 97 12/14/16 16:00 97.9 106 20 160/95 96 Room Air 12/14/16 12:00 97.7 84 18 140/87 96 Room Air 12/14/16 08:27 91 151/92 12/14/16 08:25 151/92 12/14/16 08:16 99 20 Room Air 21 12/14/16 08:00 97.8 90 20 153/92 98 Room Air 12/14/16 04:06 97.3 91 20 151/92 96 Room Air 12/14/16 01:33 98 20 Room Air 21 12/14/16 00:00 97.5 111 18 115/81 93 Room Air Intake and Output 12/14/16 12/15/16 19:00 07:00 Intake Total 1320 ml Balance 1320 ml Intake Oral 1320 ml # Voids 6 General Appearance: WD/WN HEENT: normocephalic, atraumatic Respiratory/Chest: chest wall non-tender, lungs clear Abdomen: normal bowel sounds, soft, non tender Genitourinary: normal external genitalia Skin: no lesions 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: herb digger II-XII grossly normal Current Medications Medications (Trade) Dose Ordered Sig/Robert Route PRN Reason Start Time Stop Time Status Last Admin Dose Admin Albuterol/ Ipratropium (DuoNeb 0.5-3(2.5)mg/3ml) 3 ml Q4H PRN HHN dyspnea 12/12/16 14:00 12/15/16 13:59 Amitriptyline HCl (Elavil) 25 mg BEDTIME ORAL 12/09/16 21:00 01/06/17 20:59 12/13/16 20:27 Amlodipine Besylate (Norvasc) 10 mg DAILY ORAL 12/09/16 09:00 01/07/17 08:59 12/14/16 08:27 Carbamazepine (TEGretol) 300 mg Q12HR ORAL 12/09/16 09:00 01/06/17 20:59 12/14/16 08:26 Ceftriaxone Sodium 2 gm/ Dextrose 110 ml @ 220 mls/hr Q24H IVPB 12/09/16 12:00 12/15/16 11:59 12/14/16 14:06 Dextrose (Dextrose 50%) STAT PRN IV Hypoglycemia 12/09/16 15:45 01/06/17 15:44 Diphenoxylate HCl/ Atropine (Lomotil) 2.5 mg Q4H PRN ORAL Diarrhea Unrelieved by Loperam 12/14/16 14:15 01/13/17 14:14 Divalproex Sodium (Depakote ER) 1,000 mg EVERY 12 HOURS ORAL 12/09/16 09:00 01/06/17 20:59 12/14/16 08:28 Fentanyl (Duragesic) 1 patch Q72H TDERMAL 12/11/16 21:00 12/18/16 20:59 12/14/16 21:32 Heparin Sodium (Porcine) (Heparin 5000 units/ml) 5,000 units EVERY 12 HOURS SUBQ 12/09/16 09:00 01/06/17 20:59 12/14/16 08:35 Hydromorphone HCl (Dilaudid) 2 mg Q4H PRN IVP severe breakthrough pain 12/14/16 20:00 12/20/16 19:59 12/14/16 22:08 Lisinopril (Prinivil) 20 mg DAILY ORAL 12/09/16 09:00 01/08/17 08:59 12/14/16 08:25 Loperamide HCl (Imodium) 2 mg QID PRN ORAL Diarrhea 12/14/16 13:30 01/13/17 13:29 Lorazepam (Ativan) 2 mg Q8H PRN ORAL Agitation 12/09/16 12:30 12/16/16 12:29 12/13/16 23:47 Miscellaneous Medication (fentaNYL Destruction) 1 ea Q72H MISC 12/11/16 21:00 01/10/17 20:59 12/14/16 21:00 Morphine Sulfate (Morphine Sulfate) 4 mg Q4H PRN IM Severe Pain (Pain Scale 7-10) 12/14/16 20:00 12/21/16 19:59 Naloxone HCl (Narcan) 0.1 mg PRN IV Sedation scale 3 or 4 12/09/16 06:15 01/07/17 14:44 Nitroglycerin (Ntg) 0.4 mg Q5M X 3 DOSES PRN SL Prn Chest Pain 12/09/16 06:15 01/06/17 15:44 Ondansetron HCl (Zofran) 4 mg Q6H PRN IVP Nausea & Vomiting 12/09/16 09:45 01/06/17 15:44 Oxycodone HCl (Roxicodone) 10 mg Q6H PRN ORAL moderate Breakthrough Pain 12/09/16 08:45 12/15/16 14:44 Phenytoin (Dilantin) 250 mg DAILY ORAL 12/09/16 09:00 01/07/17 08:59 12/14/16 08:28 Prednisone (predniSONE) 50 mg Taper DAILY ORAL 12/13/16 09:00 12/19/16 08:59 12/14/16 08:24 Promethazine HCl/ Codeine (Phenergan with Codeine) 5 ml Q6H PRN ORAL cough 12/09/16 09:45 01/06/17 15:44 Quetiapine Fumarate (SEROquel) 100 mg BEDTIME ORAL 12/09/16 21:00 01/08/17 20:59 12/13/16 20:27 LAUREN OCHOA Dec 14, 2016 22:17
--- NOTE | 2016-12-14 23:33 | Infectious Diseases Prog Note ---
Assessment/Plan Problems: (1) COPD (chronic obstructive pulmonary disease) Assessment & Plan: With acute exacerbation. Now done with a week of azithrmycin and ceftriaxone. Do not need further antibiotics as outpatient. (2) Leukocytosis Assessment & Plan: Due to steroids? Check C. diff given he claims he has diarrhea. Consider empiric metronidazole. (3) Morbid obesity (4) Diarrhea in adult patient Assessment & Plan: Send for C. diff. Subjective Constitutional: Reports: no symptoms Respiratory: Reports: other Cardiovascular: Reports: no symptoms Neurologic: Reports: no symptoms Skin: Reports: no symptoms Hematologic: Reports: no symptoms Allergies: Coded Allergies: KETOROLAC (Verified Allergy, Severe, 08/06/16) ASPIRIN (Verified Allergy, Intermediate, 08/06/16) CEPHALEXIN (Verified Allergy, Mild, 12/13/14) FISH DERIVED (Unverified Allergy, Unknown, 08/29/16) PEANUT (Verified Allergy, Unknown, 11/19/15) Uncoded Allergies: fish (Allergy, Unknown, 08/12/16) Subjective Calm. Objective Vital Signs Last 24 Hour Vital Signs Date Time Temp Pulse Resp B/P (MAP) Pulse Ox O2 Delivery O2 Flow Rate FiO2 12/14/16 19:51 97.5 75 21 137/70 97 12/14/16 16:00 97.9 106 20 160/95 96 Room Air 12/14/16 12:00 97.7 84 18 140/87 96 Room Air 12/14/16 08:27 91 151/92 12/14/16 08:25 151/92 12/14/16 08:16 99 20 Room Air 21 12/14/16 08:00 97.8 90 20 153/92 98 Room Air 12/14/16 04:06 97.3 91 20 151/92 96 Room Air 12/14/16 01:33 98 20 Room Air 21 12/14/16 00:00 97.5 111 18 115/81 93 Room Air Height (Feet): 5 Height (Inches): 10.00 Weight (Pounds): 330 HEENT: normocephalic Respiratory/Chest: no respiratory distress Cardiovascular: no JVD Abdomen: soft, non tender Extremities: no cyanosis Skin: no rash Lymphatic: no neck adenopathy Musculoskeletal: normal muscle bulk Current Medications Medications (Trade) Dose Ordered Sig/Robert Route PRN Reason Start Time Stop Time Status Last Admin Dose Admin Albuterol/ Ipratropium (DuoNeb 0.5-3(2.5)mg/3ml) 3 ml Q4H PRN HHN dyspnea 12/12/16 14:00 12/15/16 13:59 Amitriptyline HCl (Elavil) 25 mg BEDTIME ORAL 12/09/16 21:00 01/06/17 20:59 12/13/16 20:27 Amlodipine Besylate (Norvasc) 10 mg DAILY ORAL 12/09/16 09:00 01/07/17 08:59 12/14/16 08:27 Carbamazepine (TEGretol) 300 mg Q12HR ORAL 12/09/16 09:00 01/06/17 20:59 12/14/16 08:26 Ceftriaxone Sodium 2 gm/ Dextrose 110 ml @ 220 mls/hr Q24H IVPB 12/09/16 12:00 12/15/16 11:59 12/14/16 14:06 Dextrose (Dextrose 50%) STAT PRN IV Hypoglycemia 12/09/16 15:45 01/06/17 15:44 Diphenoxylate HCl/ Atropine (Lomotil) 2.5 mg Q4H PRN ORAL Diarrhea Unrelieved by Loperam 12/14/16 14:15 01/13/17 14:14 Divalproex Sodium (Depakote ER) 1,000 mg EVERY 12 HOURS ORAL 12/09/16 09:00 01/06/17 20:59 12/14/16 08:28 Fentanyl (Duragesic) 1 patch Q72H TDERMAL 12/11/16 21:00 12/18/16 20:59 12/14/16 21:32 Heparin Sodium (Porcine) (Heparin 5000 units/ml) 5,000 units EVERY 12 HOURS SUBQ 12/09/16 09:00 01/06/17 20:59 12/14/16 08:35 Hydromorphone HCl (Dilaudid) 2 mg Q4H PRN IVP severe breakthrough pain 12/14/16 20:00 12/20/16 19:59 12/14/16 22:08 Lisinopril (Prinivil) 20 mg DAILY ORAL 12/09/16 09:00 01/08/17 08:59 12/14/16 08:25 Loperamide HCl (Imodium) 2 mg QID PRN ORAL Diarrhea 12/14/16 13:30 01/13/17 13:29 Lorazepam (Ativan) 2 mg Q8H PRN ORAL Agitation 12/09/16 12:30 12/16/16 12:29 12/13/16 23:47 Miscellaneous Medication (fentaNYL Destruction) 1 ea Q72H MISC 12/11/16 21:00 01/10/17 20:59 12/14/16 21:00 Morphine Sulfate (Morphine Sulfate) 4 mg Q4H PRN IM Severe Pain (Pain Scale 7-10) 12/14/16 20:00 12/21/16 19:59 Naloxone HCl (Narcan) 0.1 mg PRN IV Sedation scale 3 or 4 12/09/16 06:15 01/07/17 14:44 Nitroglycerin (Ntg) 0.4 mg Q5M X 3 DOSES PRN SL Prn Chest Pain 12/09/16 06:15 01/06/17 15:44 Ondansetron HCl (Zofran) 4 mg Q6H PRN IVP Nausea & Vomiting 12/09/16 09:45 01/06/17 15:44 Oxycodone HCl (Roxicodone) 10 mg Q6H PRN ORAL moderate Breakthrough Pain 12/09/16 08:45 12/15/16 14:44 Phenytoin (Dilantin) 250 mg DAILY ORAL 12/09/16 09:00 01/07/17 08:59 12/14/16 08:28 Prednisone (predniSONE) 50 mg Taper DAILY ORAL 12/13/16 09:00 12/19/16 08:59 12/14/16 08:24 Promethazine HCl/ Codeine (Phenergan with Codeine) 5 ml Q6H PRN ORAL cough 12/09/16 09:45 01/06/17 15:44 Quetiapine Fumarate (SEROquel) 100 mg BEDTIME ORAL 12/09/16 21:00 01/08/17 20:59 12/13/16 20:27 TARA BAIG Dec 14, 2016 23:33
[2016-12-15] VITALS (7 sets, daily range): BP systolic 121–169; BP diastolic 67–97
[2016-12-15] MEDS: carBAMazepine 200mg tab ORAL SCH ×3 (00:01→21:42)
[2016-12-15] MEDS: Depakote ER 500mg tab ORAL SCH ×3 (00:01→21:43)
[2016-12-15] MEDS: Heparin 5000 units/ml inj SUBQ SCH ×3 (00:11→21:46)
[2016-12-15] MEDS: Loperamide 2mg cap ORAL PRN (04:54)
[2016-12-15] MEDS: Morphine Sulfate 4mg/ml Inj IV PRN ×5 (04:55→21:41)
[2016-12-15 07:13] LABS: BASOPHILS % (AUTO) 1.1 % (0.0-2.0); EOSINOPHILS % (AUTO) 2.1 % (0.0-3.0); LYMPHOCYTES % (AUTO) 30.4 % (20.0-45.0); MEAN CORPUSCULAR HEMOGLOBIN 31.5 PG (27.0-31.0); MEAN CORPUSCULAR HGB CONC 34.1 G/DL (32.0-36.0); MEAN CORPUSCULAR VOLUME 92 FL (80-99); MEAN PLATELET VOLUME 6.8 FL (6.5-10.1); MONOCYTES % (AUTO) 5.9 % (1.0-10.0); NEUTROPHILS % (AUTO) 60.6 % (45.0-75.0); PLATELET COUNT 273 K/UL (150-450); RED BLOOD COUNT 4.43 M/UL (4.70-6.10); RED CELL DISTRIBUTION WIDTH 12.5 % (11.6-14.8); WHITE BLOOD COUNT 12.4 K/UL (4.8-10.8)
[2016-12-15 07:53] LABS: ANION GAP 12 mmol/L (5-15); CALCIUM 9.2 MG/DL (8.5-10.1); CARBON DIOXIDE 25 MMOL/L (21-32); CHLORIDE 98 MMOL/L (98-107); CREATININE 0.7 MG/DL (0.55-1.30); GLOMERULAR FILTRATION RATE > 60 mL/min (>60); SODIUM 135 MMOL/L (136-145)
--- NOTE | 2016-12-15 08:31 | General Progress Note ---
Assessment/Plan Assessment/Plan (1) Osteosarcoma of femur (2) Morbid obesity (3) Chronic pain syndrome (4) Seizure disorder We will continue Fentanyl patch, morphine, Oxycodone and Dilaudid. Pt was d/w Dr. Muhammad and he concurred. Subjective Date patient seen: Dec 15, 2016 Time patient seen: 07:00 - am Allergies: Coded Allergies: KETOROLAC (Verified Allergy, Severe, 08/06/16) ASPIRIN (Verified Allergy, Intermediate, 08/06/16) CEPHALEXIN (Verified Allergy, Mild, 12/13/14) FISH DERIVED (Unverified Allergy, Unknown, 08/29/16) PEANUT (Verified Allergy, Unknown, 11/19/15) Uncoded Allergies: fish (Allergy, Unknown, 08/12/16) Subjective REVIEW OF SYSTEMS: Denies rash, fever, chills, sweating, dizziness, drowsiness, blurred vision, sore throat, change in weight. No chest pain. He is complaining of low back and lower extremity pain. SUBJECTIVE: Patient sitting in chair continues to c/o pain and has been tolerating it well on the medications. Objective Last 24 Hour Vital Signs Date Time Temp Pulse Resp B/P (MAP) Pulse Ox O2 Delivery O2 Flow Rate FiO2 12/15/16 08:00 98.2 109 20 169/93 97 Room Air 12/15/16 07:22 97.9 12/15/16 05:25 97.9 12/15/16 03:50 97.9 94 20 140/83 93 Room Air 12/15/16 00:05 98.1 92 21 138/67 96 Room Air 12/14/16 22:10 98.1 12/14/16 19:51 97.5 75 21 137/70 97 12/14/16 16:00 97.9 106 20 160/95 96 Room Air 12/14/16 12:00 97.7 84 18 140/87 96 Room Air Laboratory Tests 12/15/16 04:35: White Blood Count 12.4H, Red Blood Count 4.43L, Hemoglobin 14.0L, Hematocrit 40.9L, Mean Corpuscular Volume 92, Mean Corpuscular Hemoglobin 31.5H, Mean Corpuscular Hemoglobin Concent 34.1, Red Cell Distribution Width 12.5, Platelet Count 273, Mean Platelet Volume 6.8, Neutrophils (%) (Auto) 60.6, Lymphocytes (% ) (Auto) 30.4, Monocytes (%) (Auto) 5.9, Eosinophils (%) (Auto) 2.1, Basophils ( %) (Auto) 1.1, Sodium Level 135L, Potassium Level 4.0, Chloride Level 98, Carbon Dioxide Level 25, Anion Gap 12, Blood Urea Nitrogen 13, Creatinine 0.7, Estimat Glomerular Filtration Rate > 60, Glucose Level 148H, Calcium Level 9.2 Height (Feet): 5 Height (Inches): 10.00 Weight (Pounds): 330 Objective GENERAL: Alert and oriented x3. HEENT: PERRLA. NECK: Range of motion is full in all direction. No tenderness to paracervical muscles. No adenopathy. LUNGS: Decreased breath sounds bilaterally. HEART: Regular. ABDOMEN: Obese, tenderness to palpation BACK: Range of motion is decreased on flexion and extension with tenderness to paraspinal muscles. No tenderness to trapezius muscles. EXTREMITIES: No cyanosis, no clubbing, no edema. NEUROLOGICAL EXAM: Lower extremities range of motion is decreased due to patient's medical condition with motor being 4/5 in all muscles bilaterally. LIA HAGEN Dec 15, 2016 08:31
[2016-12-15] MEDS: Lisinopril 20mg tab ORAL SCH (09:02)
[2016-12-15] MEDS: Phenytoin Susp 100mg/4ml ORAL SCH (09:03)
--- NOTE | 2016-12-15 13:08 | General Progress Note ---
Assessment/Plan Problem List: (1) COPD exacerbation ICD Codes: J44.1 - Chronic obstructive pulmonary disease with (acute) exacerbation SNOMED: 438352629, 454304648 (2) Leukocytosis ICD Codes: D72.829 - Elevated white blood cell count, unspecified SNOMED: 780103920, 227353005 (3) Chronic pain ICD Codes: G89.29 - Other chronic pain SNOMED: 20684630 (4) Morbid obesity ICD Codes: E66.01 - Morbid (severe) obesity due to excess calories SNOMED: 160196766 Status: stable, progressing, tolerating diet Assessment/Plan ot [pt diet pain control abx cbc bmp am dc plan Subjective Constitutional: Reports: weakness Allergies: Coded Allergies: KETOROLAC (Verified Allergy, Severe, 08/06/16) ASPIRIN (Verified Allergy, Intermediate, 08/06/16) CEPHALEXIN (Verified Allergy, Mild, 12/13/14) FISH DERIVED (Unverified Allergy, Unknown, 08/29/16) PEANUT (Verified Allergy, Unknown, 11/19/15) Uncoded Allergies: fish (Allergy, Unknown, 08/12/16) All Systems: reviewed and negative except above Subjective weak in bed Objective Last 24 Hour Vital Signs Date Time Temp Pulse Resp B/P (MAP) Pulse Ox O2 Delivery O2 Flow Rate FiO2 12/15/16 09:03 109 169/93 12/15/16 09:02 169/93 12/15/16 08:00 98.2 109 20 169/93 97 Room Air 12/15/16 07:58 106 20 Room Air 21 12/15/16 07:22 97.9 12/15/16 05:25 97.9 12/15/16 03:50 97.9 94 20 140/83 93 Room Air 12/15/16 00:05 98.1 92 21 138/67 96 Room Air 12/14/16 22:10 98.1 12/14/16 19:51 97.5 75 21 137/70 97 12/14/16 16:00 97.9 106 20 160/95 96 Room Air Intake and Output 12/15/16 12/16/16 19:00 07:00 Intake Total 360 ml Balance 360 ml Intake Oral 360 ml # Voids 2 Laboratory Tests 12/15/16 04:35: White Blood Count 12.4H, Red Blood Count 4.43L, Hemoglobin 14.0L, Hematocrit 40.9L, Mean Corpuscular Volume 92, Mean Corpuscular Hemoglobin 31.5H, Mean Corpuscular Hemoglobin Concent 34.1, Red Cell Distribution Width 12.5, Platelet Count 273, Mean Platelet Volume 6.8, Neutrophils (%) (Auto) 60.6, Lymphocytes (% ) (Auto) 30.4, Monocytes (%) (Auto) 5.9, Eosinophils (%) (Auto) 2.1, Basophils ( %) (Auto) 1.1, Sodium Level 135L, Potassium Level 4.0, Chloride Level 98, Carbon Dioxide Level 25, Anion Gap 12, Blood Urea Nitrogen 13, Creatinine 0.7, Estimat Glomerular Filtration Rate > 60, Glucose Level 148H, Calcium Level 9.2 Height (Feet): 5 Height (Inches): 10.00 Weight (Pounds): 330 General Appearance: alert EENT: normal ENT inspection Neck: normal alignment Cardiovascular: normal peripheral pulses, normal rate, regular rhythm Respiratory/Chest: chest wall non-tender, lungs clear, normal breath sounds Abdomen: normal bowel sounds, non tender, soft Extremities: normal inspection Edema: no edema noted Arm (L), no edema noted Arm (R), no edema noted Leg (L), no edema noted Leg (R), no edema noted Pedal (L), no edema noted Pedal (R), no edema noted Generalized Neurologic: responsive, motor weakness Skin: normal pigmentation, warm/dry MARQUEZ FOY Dec 15, 2016 13:08
--- NOTE | 2016-12-15 16:02 | GI Progress Note ---
Assessment/Plan Problems: (1) Abdominal pain ICD Codes: R10.9 - Unspecified abdominal pain SNOMED: 70408148, 232645252 (2) Chronic diarrhea ICD Codes: K52.9 - Noninfective gastroenteritis and colitis, unspecified SNOMED: 468853075 (3) Hepatitis C ICD Codes: B19.20 - Unspecified viral hepatitis C without hepatic coma SNOMED: 65815970 Status: stable Status Narrative Discussed with Dr. Fraser. Assessment/Plan s/p EGD 11/14 >> esophagitis with negative bx cdiff negative colonoscopy cancelled, patient schedule to be discharged >> outpatient lactuose free/low residual/low fiber diet Imodium prn >> will consider Lomotil. fu stool culture DM management H2B, avoid PPI PO hydration + electrolyte replacement fu labs outpatient Hep C treatment Subjective Subjective diarrhea Objective Last 24 Hour Vital Signs Date Time Temp Pulse Resp B/P (MAP) Pulse Ox O2 Delivery O2 Flow Rate FiO2 12/15/16 15:54 97.7 109 20 121/73 94 Room Air 12/15/16 12:00 98.1 72 18 141/97 95 Room Air 12/15/16 09:03 109 169/93 12/15/16 09:02 169/93 12/15/16 08:00 98.2 109 20 169/93 97 Room Air 12/15/16 07:58 106 20 Room Air 21 12/15/16 07:22 97.9 12/15/16 05:25 97.9 12/15/16 03:50 97.9 94 20 140/83 93 Room Air 12/15/16 00:05 98.1 92 21 138/67 96 Room Air 12/14/16 22:10 98.1 12/14/16 19:51 97.5 75 21 137/70 97 12/14/16 16:00 97.9 106 20 160/95 96 Room Air Intake and Output 12/15/16 12/16/16 19:00 07:00 Intake Total 840 ml Output Total 600 ml Balance 240 ml Intake Oral 840 ml Output Urine Total 600 ml # Voids 2 Laboratory Tests Test 12/15/16 04:35 White Blood Count 12.4 K/UL (4.8-10.8) H Red Blood Count 4.43 M/UL (4.70-6.10) L Hemoglobin 14.0 G/DL (14.2-18.0) L Hematocrit 40.9 % (42.0-52.0) L Mean Corpuscular Volume 92 FL (80-99) Mean Corpuscular Hemoglobin 31.5 PG (27.0-31.0) H Mean Corpuscular Hemoglobin Concent 34.1 G/DL (32.0-36.0) Red Cell Distribution Width 12.5 % (11.6-14.8) Platelet Count 273 K/UL (150-450) Mean Platelet Volume 6.8 FL (6.5-10.1) Neutrophils (%) (Auto) 60.6 % (45.0-75.0) Lymphocytes (%) (Auto) 30.4 % (20.0-45.0) Monocytes (%) (Auto) 5.9 % (1.0-10.0) Eosinophils (%) (Auto) 2.1 % (0.0-3.0) Basophils (%) (Auto) 1.1 % (0.0-2.0) Sodium Level 135 MMOL/L (136-145) L Potassium Level 4.0 MMOL/L (3.5-5.1) Chloride Level 98 MMOL/L (98-107) Carbon Dioxide Level 25 MMOL/L (21-32) Anion Gap 12 mmol/L (5-15) Blood Urea Nitrogen 13 mg/dL (7-18) Creatinine 0.7 MG/DL (0.55-1.30) Estimat Glomerular Filtration Rate > 60 mL/min (>60) Glucose Level 148 MG/DL (74-106) H Calcium Level 9.2 MG/DL (8.5-10.1) Height (Feet): 5 Height (Inches): 10.00 Weight (Pounds): 330 General Appearance: no apparent distress, alert Cardiovascular: normal rate Respiratory/Chest: normal breath sounds, no respiratory distress Abdominal Exam: normal bowel sounds, non tender, soft Laura Gray N.Gustavo Dec 15, 2016 16:02
--- NOTE | 2016-12-15 16:40 | General Progress Note ---
Assessment/Plan Status: stable Assessment/Plan ptsd seroquel and ativan the pt is reluctant to take any other meds Subjective 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: Reports: anxiety, depressed, emotional problems Allergies: Coded Allergies: KETOROLAC (Verified Allergy, Severe, 08/06/16) ASPIRIN (Verified Allergy, Intermediate, 08/06/16) CEPHALEXIN (Verified Allergy, Mild, 12/13/14) FISH DERIVED (Unverified Allergy, Unknown, 08/29/16) PEANUT (Verified Allergy, Unknown, 11/19/15) Uncoded Allergies: fish (Allergy, Unknown, 08/12/16) Subjective the pt is med seeking. the pt was irritable and angry. the pt got argumentative and was upset about colonoscopy not scheduled tomorrow Objective Last 24 Hour Vital Signs Date Time Temp Pulse Resp B/P (MAP) Pulse Ox O2 Delivery O2 Flow Rate FiO2 12/15/16 15:54 97.7 109 20 121/73 94 Room Air 12/15/16 12:00 98.1 72 18 141/97 95 Room Air 12/15/16 09:03 109 169/93 12/15/16 09:02 169/93 12/15/16 08:00 98.2 109 20 169/93 97 Room Air 12/15/16 07:58 106 20 Room Air 21 12/15/16 07:22 97.9 12/15/16 05:25 97.9 12/15/16 03:50 97.9 94 20 140/83 93 Room Air 12/15/16 00:05 98.1 92 21 138/67 96 Room Air 12/14/16 22:10 98.1 12/14/16 19:51 97.5 75 21 137/70 97 Intake and Output 12/15/16 12/16/16 19:00 07:00 Intake Total 840 ml Output Total 600 ml Balance 240 ml Intake Oral 840 ml Output Urine Total 600 ml # Voids 2 Laboratory Tests 12/15/16 04:35: White Blood Count 12.4H, Red Blood Count 4.43L, Hemoglobin 14.0L, Hematocrit 40.9L, Mean Corpuscular Volume 92, Mean Corpuscular Hemoglobin 31.5H, Mean Corpuscular Hemoglobin Concent 34.1, Red Cell Distribution Width 12.5, Platelet Count 273, Mean Platelet Volume 6.8, Neutrophils (%) (Auto) 60.6, Lymphocytes (% ) (Auto) 30.4, Monocytes (%) (Auto) 5.9, Eosinophils (%) (Auto) 2.1, Basophils ( %) (Auto) 1.1, Sodium Level 135L, Potassium Level 4.0, Chloride Level 98, Carbon Dioxide Level 25, Anion Gap 12, Blood Urea Nitrogen 13, Creatinine 0.7, Estimat Glomerular Filtration Rate > 60, Glucose Level 148H, Calcium Level 9.2 Height (Feet): 5 Height (Inches): 10.00 Weight (Pounds): 330 General Appearance: no apparent distress, alert, morbidly obese Neurologic: alert, oriented x 3, responsive, depressed affect Bret Manuel M.D. Dec 15, 2016 16:40
[2016-12-15] MEDS ORDERED: oxyCODONE 5mg IR tab ORAL PRN (18:15)
--- NOTE | 2016-12-15 19:28 | General Progress Note ---
Assessment/Plan Assessment/Plan ASSESSMENT AND RECOMMENDATIONS: 1. Osteosarcoma, s/p radiation and chemotherapy. --> has been referred to Dr. Siegel 2. Anemia secondary to chronic disease. Work up if counts drop below 10 3. Leukocytosis, likely secondary to reactive process. Improved 4. Elevated blood sugar. Continue to monitor. 5. Sepsis with an elevated lactate at 2.9. Continue to monitor. 6. Hepatitis C. 7. Morbid obesity. 8. Seizure disorder. Subjective Constitutional: Reports: no symptoms HEENT: Reports: no symptoms Cardiovascular: Reports: no symptoms Respiratory: Reports: no symptoms Gastrointestinal/Abdominal: Reports: no symptoms Genitourinary: Reports: no symptoms 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: Reports: no symptoms Endocrine: Reports: no symptoms Hematologic/Lymphatic: Reports: no symptoms Allergies: Coded Allergies: KETOROLAC (Verified Allergy, Severe, 08/06/16) ASPIRIN (Verified Allergy, Intermediate, 08/06/16) CEPHALEXIN (Verified Allergy, Mild, 12/13/14) FISH DERIVED (Unverified Allergy, Unknown, 08/29/16) PEANUT (Verified Allergy, Unknown, 11/19/15) Uncoded Allergies: fish (Allergy, Unknown, 08/12/16) Subjective NAD Objective Last 24 Hour Vital Signs Date Time Temp Pulse Resp B/P (MAP) Pulse Ox O2 Delivery O2 Flow Rate FiO2 12/15/16 15:54 97.7 109 20 121/73 94 Room Air 12/15/16 12:00 98.1 72 18 141/97 95 Room Air 12/15/16 09:03 109 169/93 12/15/16 09:02 169/93 12/15/16 08:00 98.2 109 20 169/93 97 Room Air 12/15/16 07:58 106 20 Room Air 21 12/15/16 07:22 97.9 12/15/16 05:25 97.9 12/15/16 03:50 97.9 94 20 140/83 93 Room Air 12/15/16 00:05 98.1 92 21 138/67 96 Room Air 12/14/16 22:10 98.1 12/14/16 19:51 97.5 75 21 137/70 97 Intake and Output 12/15/16 12/16/16 19:00 07:00 Intake Total 840 ml Output Total 600 ml Balance 240 ml Intake Oral 840 ml Output Urine Total 600 ml # Voids 2 Laboratory Tests 12/15/16 04:35: White Blood Count 12.4H, Red Blood Count 4.43L, Hemoglobin 14.0L, Hematocrit 40.9L, Mean Corpuscular Volume 92, Mean Corpuscular Hemoglobin 31.5H, Mean Corpuscular Hemoglobin Concent 34.1, Red Cell Distribution Width 12.5, Platelet Count 273, Mean Platelet Volume 6.8, Neutrophils (%) (Auto) 60.6, Lymphocytes (% ) (Auto) 30.4, Monocytes (%) (Auto) 5.9, Eosinophils (%) (Auto) 2.1, Basophils ( %) (Auto) 1.1, Sodium Level 135L, Potassium Level 4.0, Chloride Level 98, Carbon Dioxide Level 25, Anion Gap 12, Blood Urea Nitrogen 13, Creatinine 0.7, Estimat Glomerular Filtration Rate > 60, Glucose Level 148H, Calcium Level 9.2 Height (Feet): 5 Height (Inches): 10.00 Weight (Pounds): 330 General Appearance: no apparent distress EENT: PERRL/EOMI Neck: normal inspection Cardiovascular: normal peripheral pulses Extremities: normal range of motion Edema: trace edema Bin Abbott Dec 15, 2016 19:28
--- NOTE | 2016-12-15 22:24 | Pulmonology Progress Note ---
Assessment/Plan Problems: (1) COPD exacerbation (2) Seizure (3) Psychiatric disorder (4) Hepatitis C (5) GERD (gastroesophageal reflux disease) Assessment/Plan improving respiratory treatment symptomatic treatment dc planning pain control psych f/u Subjective ROS Limited/Unobtainable: No Constitutional: Reports: no symptoms HEENT: Repors: no symptoms Allergies: Coded Allergies: KETOROLAC (Verified Allergy, Severe, 08/06/16) ASPIRIN (Verified Allergy, Intermediate, 08/06/16) CEPHALEXIN (Verified Allergy, Mild, 12/13/14) FISH DERIVED (Unverified Allergy, Unknown, 08/29/16) PEANUT (Verified Allergy, Unknown, 11/19/15) Uncoded Allergies: fish (Allergy, Unknown, 08/12/16) Objective Last 24 Hour Vital Signs Date Time Temp Pulse Resp B/P (MAP) Pulse Ox O2 Delivery O2 Flow Rate FiO2 12/15/16 20:06 98 20 Room Air 21 12/15/16 20:00 98.1 101 22 130/82 96 Room Air 12/15/16 15:54 97.7 109 20 121/73 94 Room Air 12/15/16 12:00 98.1 72 18 141/97 95 Room Air 12/15/16 09:03 109 169/93 12/15/16 09:02 169/93 12/15/16 08:00 98.2 109 20 169/93 97 Room Air 12/15/16 07:58 106 20 Room Air 21 12/15/16 07:22 97.9 12/15/16 05:25 97.9 12/15/16 03:50 97.9 94 20 140/83 93 Room Air 12/15/16 00:05 98.1 92 21 138/67 96 Room Air Intake and Output 12/15/16 12/16/16 19:00 07:00 Intake Total 840 ml Output Total 600 ml Balance 240 ml Intake Oral 840 ml Output Urine Total 600 ml # Voids 2 General Appearance: WD/WN HEENT: normocephalic, atraumatic Respiratory/Chest: chest wall non-tender, lungs clear Cardiovascular: normal peripheral pulses, normal rate Abdomen: normal bowel sounds, soft, non tender Extremities: no cyanosis 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 Laboratory Tests 12/15/16 04:35: White Blood Count 12.4H, Red Blood Count 4.43L, Hemoglobin 14.0L, Hematocrit 40.9L, Mean Corpuscular Volume 92, Mean Corpuscular Hemoglobin 31.5H, Mean Corpuscular Hemoglobin Concent 34.1, Red Cell Distribution Width 12.5, Platelet Count 273, Mean Platelet Volume 6.8, Neutrophils (%) (Auto) 60.6, Lymphocytes (% ) (Auto) 30.4, Monocytes (%) (Auto) 5.9, Eosinophils (%) (Auto) 2.1, Basophils ( %) (Auto) 1.1, Sodium Level 135L, Potassium Level 4.0, Chloride Level 98, Carbon Dioxide Level 25, Anion Gap 12, Blood Urea Nitrogen 13, Creatinine 0.7, Estimat Glomerular Filtration Rate > 60, Glucose Level 148H, Calcium Level 9.2 Current Medications Medications (Trade) Dose Ordered Sig/Robert Route PRN Reason Start Time Stop Time Status Last Admin Dose Admin Amitriptyline HCl (Elavil) 25 mg BEDTIME ORAL 12/09/16 21:00 01/06/17 20:59 12/15/16 21:42 Amlodipine Besylate (Norvasc) 10 mg DAILY ORAL 12/09/16 09:00 01/07/17 08:59 12/15/16 09:03 Carbamazepine (TEGretol) 300 mg Q12HR ORAL 12/09/16 09:00 01/06/17 20:59 12/15/16 21:42 Dextrose (Dextrose 50%) STAT PRN IV Hypoglycemia 12/09/16 15:45 01/06/17 15:44 Diphenoxylate HCl/ Atropine (Lomotil) 2.5 mg Q4H PRN ORAL Diarrhea Unrelieved by Loperam 12/14/16 14:15 01/13/17 14:14 Divalproex Sodium (Depakote ER) 1,000 mg EVERY 12 HOURS ORAL 12/09/16 09:00 01/06/17 20:59 12/15/16 21:43 Fentanyl (Duragesic) 1 patch Q72H TDERMAL 12/11/16 21:00 12/18/16 20:59 12/14/16 21:32 Heparin Sodium (Porcine) (Heparin 5000 units/ml) 5,000 units EVERY 12 HOURS SUBQ 12/09/16 09:00 01/06/17 20:59 12/15/16 21:46 Hydromorphone HCl (Dilaudid) 2 mg Q4H PRN IVP severe breakthrough pain 12/14/16 20:00 12/20/16 19:59 12/15/16 19:58 Lisinopril (Prinivil) 20 mg DAILY ORAL 12/09/16 09:00 01/08/17 08:59 12/15/16 09:02 Loperamide HCl (Imodium) 2 mg QID PRN ORAL Diarrhea 12/14/16 13:30 01/13/17 13:29 12/15/16 04:54 Lorazepam (Ativan) 2 mg Q8H PRN ORAL Agitation 12/09/16 12:30 12/16/16 12:29 12/13/16 23:47 Miscellaneous Medication (fentaNYL Destruction) 1 ea Q72H MISC 12/11/16 21:00 01/10/17 20:59 12/14/16 21:00 Morphine Sulfate (Morphine Sulfate) 4 mg Q4H PRN IV Severe Pain (Pain Scale 7-10) 12/15/16 04:00 12/22/16 03:59 12/15/16 21:41 Naloxone HCl (Narcan) 0.1 mg PRN IV Sedation scale 3 or 4 12/09/16 06:15 01/07/17 14:44 Nitroglycerin (Ntg) 0.4 mg Q5M X 3 DOSES PRN SL Prn Chest Pain 12/09/16 06:15 01/06/17 15:44 Ondansetron HCl (Zofran) 4 mg Q6H PRN IVP Nausea & Vomiting 12/09/16 09:45 01/06/17 15:44 Oxycodone HCl (Roxicodone) 10 mg Q6H PRN ORAL Moderate Breakthrough Pain 12/15/16 18:15 12/22/16 18:14 Phenytoin (Dilantin) 250 mg DAILY ORAL 12/09/16 09:00 01/07/17 08:59 12/15/16 09:03 Prednisone (predniSONE) 40 mg Taper DAILY ORAL 12/13/16 09:00 12/19/16 08:59 12/15/16 09:02 Promethazine HCl/ Codeine (Phenergan with Codeine) 5 ml Q6H PRN ORAL cough 12/09/16 09:45 01/06/17 15:44 Quetiapine Fumarate (SEROquel) 100 mg BEDTIME ORAL 12/09/16 21:00 01/08/17 20:59 12/15/16 21:41 LAUREN OCHOA Dec 15, 2016 22:24
[2016-12-16] MEDS: Morphine Sulfate 4mg/ml Inj IV PRN ×2 (01:57→05:56)
[2016-12-16 04:00] VITALS: BP 131/94
[2016-12-16 08:00] VITALS: BP 130/74
--- NOTE | 2016-12-16 08:25 | General Progress Note ---
Assessment/Plan Assessment/Plan (1) Osteosarcoma of femur (2) Morbid obesity (3) Chronic pain syndrome (4) Seizure disorder We will continue Fentanyl patch, morphine, Oxycodone and Dilaudid. Rx was written for patient in anticipation for discharge. Pt was d/w Dr. Muhammad and he concurred. Subjective Date patient seen: Dec 16, 2016 Time patient seen: 07:00 - am Allergies: Coded Allergies: KETOROLAC (Verified Allergy, Severe, 08/06/16) ASPIRIN (Verified Allergy, Intermediate, 08/06/16) CEPHALEXIN (Verified Allergy, Mild, 12/13/14) FISH DERIVED (Unverified Allergy, Unknown, 08/29/16) PEANUT (Verified Allergy, Unknown, 11/19/15) Uncoded Allergies: fish (Allergy, Unknown, 08/12/16) Subjective REVIEW OF SYSTEMS: Denies rash, fever, chills, sweating, dizziness, drowsiness, blurred vision, sore throat, change in weight. No chest pain. He is complaining of low back and lower extremity pain. 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 Objective Last 24 Hour Vital Signs Date Time Temp Pulse Resp B/P (MAP) Pulse Ox O2 Delivery O2 Flow Rate FiO2 12/16/16 04:00 97.5 96 18 131/94 97 Room Air 12/15/16 23:59 97.0 94 21 126/79 97 Room Air 12/15/16 20:06 98 20 Room Air 21 12/15/16 20:00 98.1 101 22 130/82 96 Room Air 12/15/16 15:54 97.7 109 20 121/73 94 Room Air 12/15/16 12:00 98.1 72 18 141/97 95 Room Air 12/15/16 09:03 109 169/93 12/15/16 09:02 169/93 Height (Feet): 5 Height (Inches): 10.00 Weight (Pounds): 330 Objective GENERAL: Alert and oriented x3. HEENT: PERRLA. NECK: Range of motion is full in all direction. No tenderness to paracervical muscles. No adenopathy. LUNGS: Decreased breath sounds bilaterally. HEART: Regular. ABDOMEN: Obese, tenderness to palpation BACK: Range of motion is decreased on flexion and extension with tenderness to paraspinal muscles. No tenderness to trapezius muscles. EXTREMITIES: No cyanosis, no clubbing, no edema. NEUROLOGICAL EXAM: Lower extremities range of motion is decreased due to patient's medical condition with motor being 4/5 in all muscles bilaterally. LIA HAGEN. Dec 16, 2016 08:25
[2016-12-16] MEDS: carBAMazepine 200mg tab ORAL SCH (08:59)
[2016-12-16] MEDS: Loperamide 2mg cap ORAL PRN (08:59)
[2016-12-16 09:00] VITALS: BP 130/74
[2016-12-16] MEDS: Depakote ER 500mg tab ORAL SCH (09:00)
[2016-12-16] MEDS: Lisinopril 20mg tab ORAL SCH (09:00)
[2016-12-16] MEDS: Phenytoin Susp 100mg/4ml ORAL SCH (09:04)
[2016-12-16] MEDS: Heparin 5000 units/ml inj SUBQ SCH (09:09)
--- NOTE | 2016-12-16 12:54 | GI Progress Note ---
Assessment/Plan Problems: (1) Abdominal pain ICD Codes: R10.9 - Unspecified abdominal pain SNOMED: 04575433, 881499450 (2) Chronic diarrhea ICD Codes: K52.9 - Noninfective gastroenteritis and colitis, unspecified SNOMED: 954644217 (3) Hepatitis C ICD Codes: B19.20 - Unspecified viral hepatitis C without hepatic coma SNOMED: 36654011 Status: unchanged Status Narrative Discussed with Dr. Fraser. Assessment/Plan s/p EGD 11/14 >> esophagitis with negative bx cdiff negative colonoscopy cancelled, patient schedule to be discharged >> outpatient lactuose free/low residual/low fiber diet Imodium prn >> will consider Lomotil. fu stool culture DM management H2B, avoid PPI PO hydration + electrolyte replacement fu labs outpatient Hep C treatment Subjective Subjective diarrhea Objective Last 24 Hour Vital Signs Date Time Temp Pulse Resp B/P (MAP) Pulse Ox O2 Delivery O2 Flow Rate FiO2 12/16/16 09:00 130/74 12/16/16 09:00 100 130/74 12/16/16 08:00 98.1 100 16 130/74 Room Air 12/16/16 04:00 97.5 96 18 131/94 97 Room Air 12/15/16 23:59 97.0 94 21 126/79 97 Room Air 12/15/16 20:06 98 20 Room Air 21 12/15/16 20:00 98.1 101 22 130/82 96 Room Air 12/15/16 15:54 97.7 109 20 121/73 94 Room Air Height (Feet): 5 Height (Inches): 10.00 Weight (Pounds): 330 General Appearance: WD/WN, no apparent distress, alert Cardiovascular: normal rate Respiratory/Chest: normal breath sounds, no respiratory distress Abdominal Exam: normal bowel sounds, non tender, soft Laura Gray N.P. Dec 16, 2016 12:54
--- NOTE | 2016-12-16 20:55 | General Progress Note ---
Assessment/Plan Assessment/Plan ASSESSMENT AND RECOMMENDATIONS: 1. Osteosarcoma, s/p radiation and chemotherapy. --> has been referred to Dr. Siegel 2. Anemia secondary to chronic disease. Work up if counts drop below 10 3. Leukocytosis, likely secondary to reactive process. Improved 4. Elevated blood sugar. Continue to monitor. 5. Sepsis with an elevated lactate at 2.9. Continue to monitor. 6. Hepatitis C. 7. Morbid obesity. 8. Seizure disorder. Subjective Constitutional: Reports: no symptoms HEENT: Reports: no symptoms Cardiovascular: Reports: no symptoms Respiratory: Reports: no symptoms Gastrointestinal/Abdominal: Reports: no symptoms Genitourinary: Reports: no symptoms 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: Reports: no symptoms Endocrine: Reports: no symptoms Hematologic/Lymphatic: Reports: no symptoms Allergies: Coded Allergies: KETOROLAC (Verified Allergy, Severe, 08/06/16) ASPIRIN (Verified Allergy, Intermediate, 08/06/16) CEPHALEXIN (Verified Allergy, Mild, 12/13/14) FISH DERIVED (Unverified Allergy, Unknown, 08/29/16) PEANUT (Verified Allergy, Unknown, 11/19/15) Uncoded Allergies: fish (Allergy, Unknown, 08/12/16) Subjective NAD Objective Last 24 Hour Vital Signs Date Time Temp Pulse Resp B/P (MAP) Pulse Ox O2 Delivery O2 Flow Rate FiO2 12/16/16 09:00 130/74 12/16/16 09:00 100 130/74 12/16/16 08:00 98.1 100 16 130/74 Room Air 12/16/16 04:00 97.5 96 18 131/94 97 Room Air 12/15/16 23:59 97.0 94 21 126/79 97 Room Air Height (Feet): 5 Height (Inches): 10.00 Weight (Pounds): 330 General Appearance: no apparent distress EENT: PERRL/EOMI Neck: normal alignment Cardiovascular: normal rate Edema: trace edema Skin: normal pigmentation Bin Abbott Dec 16, 2016 20:55
--- NOTE | 2016-12-16 23:05 | Pulmonology Progress Note ---
Assessment/Plan Problems: (1) COPD exacerbation (2) Seizure (3) Psychiatric disorder (4) Hepatitis C (5) GERD (gastroesophageal reflux disease) Assessment/Plan improving respiratory treatment symptomatic treatment dc planning pain control psych f/u dc planning pt was seen earlier today Subjective ROS Limited/Unobtainable: No Constitutional: Reports: no symptoms HEENT: Repors: no symptoms Respiratory: Reports: no symptoms Allergies: Coded Allergies: KETOROLAC (Verified Allergy, Severe, 08/06/16) ASPIRIN (Verified Allergy, Intermediate, 08/06/16) CEPHALEXIN (Verified Allergy, Mild, 12/13/14) FISH DERIVED (Unverified Allergy, Unknown, 08/29/16) PEANUT (Verified Allergy, Unknown, 11/19/15) Uncoded Allergies: fish (Allergy, Unknown, 08/12/16) Objective Last 24 Hour Vital Signs Date Time Temp Pulse Resp B/P (MAP) Pulse Ox O2 Delivery O2 Flow Rate FiO2 12/16/16 09:00 130/74 12/16/16 09:00 100 130/74 12/16/16 08:00 98.1 100 16 130/74 Room Air 12/16/16 04:00 97.5 96 18 131/94 97 Room Air 12/15/16 23:59 97.0 94 21 126/79 97 Room Air General Appearance: WD/WN HEENT: normocephalic, atraumatic Respiratory/Chest: chest wall non-tender, lungs clear Abdomen: soft, non tender Extremities: no cyanosis Skin: no rash 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
--- NOTE | 2016-12-16 23:07 | General Progress Note ---
Assessment/Plan Assessment/Plan ptsd seroquel and ativan the pt is reluctant to take any other meds Subjective Date patient seen: Dec 16, 2016 Constitutional: Reports: malaise, weakness Allergies: Coded Allergies: KETOROLAC (Verified Allergy, Severe, 08/06/16) ASPIRIN (Verified Allergy, Intermediate, 08/06/16) CEPHALEXIN (Verified Allergy, Mild, 12/13/14) FISH DERIVED (Unverified Allergy, Unknown, 08/29/16) PEANUT (Verified Allergy, Unknown, 11/19/15) Uncoded Allergies: fish (Allergy, Unknown, 08/12/16) Subjective the pt is med seeking. the pt was irritable and angry. Objective Last 24 Hour Vital Signs Date Time Temp Pulse Resp B/P (MAP) Pulse Ox O2 Delivery O2 Flow Rate FiO2 12/16/16 09:00 130/74 12/16/16 09:00 100 130/74 12/16/16 08:00 98.1 100 16 130/74 Room Air 12/16/16 04:00 97.5 96 18 131/94 97 Room Air 12/15/16 23:59 97.0 94 21 126/79 97 Room Air Height (Feet): 5 Height (Inches): 10.00 Weight (Pounds): 330 General Appearance: no apparent distress, alert, morbidly obese Bret Manuel M.D. Dec 16, 2016 23:07
--- NOTE | 2016-12-18 15:51 | Cardiology Report ---
APPROVED REPORT EKG Measurement Heart [id number] Sinus tachycardia Otherwise normal ECG
--- NOTE | 2016-12-18 16:08 | Discharge Summary ---
Discharge Summary Hospital Course Date of Admission Dec 07, 2016 at 12:44 Date of Discharge Dec 16, 2016 at 11:13 Admitting Diagnosis COPD exacerbation, PNA, fever HPI Yemi Stuart is a 41 year old male who was admitted on Dec 07, 2016 at 12:44 for Chronic Obstructive Pulmonary Disease Exacerbation Hospital Course [id number] Discharge Discharge Disposition Patient was discharged toRecuperative Care with Discharge Diagnoses: Courtney Lunsford WARP COILER Dec 18, 2016 16:08
--- NOTE | 2016-12-19 04:45 | Discharge Summary 2 SIG ---
DATE OF ADMISSION: 12/07/2016 DATE OF DISCHARGE: 12/16/2016 CONSULTANTS: 1. Bret Manuel M.D. 2. Bin Abbott M.D. 3. Ministerio Joe M.D. 4. Uri Tesfaye M.D. 5. Vitaliy Fraser M.D. 6. Ignacio Muhammad M.D. BRIEF HOSPITAL COURSE: The patient is a 41-year-old male, who was previously at [facility], was discharged to a hotel. The patient became short of breath with back pain. He has a history of COPD and chronic pain with narcotic dependence with pain all over the body and leg. He has a history of sarcoma and a seizure and claims to have a seizure on the day of admission. On evaluation at ED, blood work showed slight leukocytosis. WBC was 11. He was given albuterol and Atrovent nebulizer treatment. Lactic acid was 2.9. He was started on IV ceftriaxone. He was admitted to Med/Surg for acute COPD exacerbation and diarrhea. He was started on Flagyl and stool was sent for C. difficile, results were negative. He was seen by pain management and was given fentanyl patch 100 mcg, oxycodone 10 mg p.r.n. with Dilaudid 2 mg IV p.r.n. He was given respiratory treatment. Hematology/Oncology service was consulted. The patient has a history of sarcoma, status post radiation and chemotherapy. He was referred to Dr. Siegel. He has posttraumatic stress disorder and cluster B personality disorder. Prozac was discontinued and was started on Seroquel. He was given ceftriaxone and Zithromax. WBC was going up. Steroids was tapered. He continued to have diarrhea despite negative C. difficile. He was given lactulose free/low residue/fiber diet and was given Imodium p.r.n. Sputum culture was negative and the patient finished one week of azithromycin and antibiotic. No need to continue antibiotics as outpatient. He was eventually discharged home with home health. FINAL DIAGNOSES: 1. Acute chronic obstructive pulmonary disease exacerbation. 2. Seizure disorder. 3. Osteosarcoma, status post radiation and chemotherapy. 4. Anemia of chronic disease. 5. Morbid obesity. 6. Hepatitis C. 7. Diarrhea possible due to steroids. 8. Gastroesophageal reflux disease. 9. Chronic pain syndrome. 10. Posttraumatic stress disorder. 11. Lactic acidosis. 12. Open wound on the right lower anterior leg, present on admission. DISCHARGE MEDICATIONS: Refer to list. DISPOSITION: The patient was discharged to recuperative care with [facility]. Appeal on discharge was denied by Hernandez. Jeremiah Singh D.O. I have been assigned to dictate discharge summary on this account and I was not involved in the patient's management. Courtney Lunsford N.P. DR: RODRIGUEZ JOB#: [id number] CC: LUCIUS
== END 2016-12-16 11:13 | disposition home health service (06) | DRG 191 ==
LOC: EMR 12:10 → 2E 12:44 → EDBEDREQ 13:11 → 2E 18:04 → 4W 12-09 06:09
DX: J44.1 Chronic obstructive pulmonary disease with (acute) exacerbation (principal); K52.1 Toxic gastroenteritis and colitis; Z68.42 Body mass index [BMI] 45.0-49.9, adult; F11.20 Opioid dependence, uncomplicated; G40.89 Other seizures; E66.01 Morbid (severe) obesity due to excess calories; B19.20 Unspecified viral hepatitis C without hepatic coma; K21.9 Gastro-esophageal reflux disease without esophagitis; R11.2 Nausea with vomiting, unspecified; F43.10 Post-traumatic stress disorder, unspecified; F60.89 Other specific personality disorders; Z88.6 Allergy status to analgesic agent; Z88.1 Allergy status to other antibiotic agents; Z88.8 Allergy status to other drugs, medicaments and biological substances; D63.8 Anemia in other chronic diseases classified elsewhere; Z85.830 Personal history of malignant neoplasm of bone; Z92.3 Personal history of irradiation; G89.4 Chronic pain syndrome; S81.802A Unspecified open wound, left lower leg, initial encounter; X58.XXXA Exposure to other specified factors, initial encounter; T38.0X5A Adverse effect of glucocorticoids and synthetic analogues, initial encounter
CPT/HCPCS: 36415; 71010; 80048; 80053; 82550; 82553; 83605; 83880; 84484; 85007; 85025; 85610; 85730; 87040; 87070; 87205; 87324; 93005; 94640; 94664; 97803; 99285; J7620

== ENCOUNTER 2017-01-08 00:43 | Inpatient (IN) | payer MEDICARE, OTHER ==
[~2017-01-08] VITALS: Ht 177.8 cm; Wt 147.4 kg
[2017-01-08] VITALS (8 sets, daily range): BP systolic 120–149; BP diastolic 63–98
[~2017-01-08 00:43] MED LIST changes: +DILAUDID 22 MG/1 M1 IV; +MEDROL DOSEPAK4 MG IV; +MORPHINE 11 MG/2 ML IV; +NALOXONE H0.4 MG/12 IV; +NITROGLYCERIN0.4 MG SL; +OXYCODONE HCL5 MG ORAL; +PROMETH-CODEIN 65 ML PO; +SEROQUEL100 MG ORAL
[2017-01-08 01:28] LABS: BASOPHILS % (AUTO) 0.9 % (0.0-2.0); EOSINOPHILS % (AUTO) 1.1 % (0.0-3.0); LYMPHOCYTES % (AUTO) 20.5 % (20.0-45.0); MEAN CORPUSCULAR HEMOGLOBIN 29.7 PG (27.0-31.0); MEAN CORPUSCULAR HGB CONC 32.3 G/DL (32.0-36.0); MEAN CORPUSCULAR VOLUME 92 FL (80-99); MEAN PLATELET VOLUME 6.1 FL (6.5-10.1); MONOCYTES % (AUTO) 7.1 % (1.0-10.0); NEUTROPHILS % (AUTO) 70.4 % (45.0-75.0); PLATELET COUNT 422 K/UL (150-450); RED BLOOD COUNT 5.46 M/UL (4.70-6.10); RED CELL DISTRIBUTION WIDTH 12.6 % (11.6-14.8); WHITE BLOOD COUNT 15.5 K/UL (4.8-10.8)
[2017-01-08 01:34] LABS: APPEARANCE,URINE SLIGHTLY CLOUDY; KETONES,URINE 3+ (NEGATIVE); LEUKOCYTE ESTERASE ,URINE 1+ (NEGATIVE); NITRITE,URINE NEGATIVE (NEGATIVE); PH,URINE 5 (4.5-8.0); PROTEIN,URINE 3+ (NEGATIVE); UROBILINOGEN,URINE 4 MG/DL (0.0-1.0)
--- NOTE | 2017-01-08 01:35 | Emergency Room Report ---
History of Present Illness General Chief Complaint: Chest Pain Source: Patient, Medical Record Present Illness HPI Is a 41-year-old [employer] male with a BMI of 47. He has a history of COPD, diabetes, hypertension or. Also history of chronic pain. He's been in multiple hospital in the past. In early November he was admitted here in discharge home. He claimed he was in a [facility] visiting his uncle near [facility]. Supposedly, he said that Dr. Foy gave him permission to leave. He then had abdominal pain he was admitted to [facility] for about a week. He was discharged back to [facility]. When he got there he was told that there were no bed for him. He said that he call Dr. Foy at 1 PM this afternoon. He was told to go to the hospital to be admitted. He showed 12 hours later. Patient complaining of chest pain. His been ongoing for 2 days. He also has vomiting and diarrhea. He has chronic diarrhea. Denies any fever chills denies any shortness of breath. No diaphoresis the Allergies: Coded Allergies: KETOROLAC (Verified Allergy, Severe, 08/06/16) ASPIRIN (Verified Allergy, Intermediate, 08/06/16) CEPHALEXIN (Verified Allergy, Mild, 12/13/14) FISH DERIVED (Unverified Allergy, Unknown, 08/29/16) PEANUT (Verified Allergy, Unknown, 11/19/15) Uncoded Allergies: fish (Allergy, Unknown, 08/12/16) Patient History Past Medical History: see triage record, old chart reviewed, DM, HTN, CHF, COPD Past Surgical History: other Pertinent Family History: none Social History: Denies: smoking Immunizations: other Reviewed Nursing Documentation: PMH: Agreed, PSxH: Agreed Nursing Documentation-PMH Hx Cardiac Problems: Yes Hx Hypertension: Yes Hx COPD: Yes Hx Cancer: Yes - Sarcoma R femur and back Hx Gastrointestinal Problems: Yes Hx Neurological Problems: Yes - mononeuritis Hx Encephalitis: Yes - encephalopaty Hx Seizures: Yes Review of Systems Eye: Denies: eye pain, blurred vision ENT: Denies: ear pain, nose congestion, throat swelling Respiratory: Denies: cough Cardiovascular: Reports: chest pain, Denies: palpitations Gastrointestinal: Reports: abdominal pain, diarrhea, nausea, vomiting Musculoskeletal: Denies: back pain, joint pain Skin: Denies: rash Neurological: Denies: headache, numbness Endocrine: Denies: increased thirst, increased urine Hematologic/Lymphatic: Denies: easy bruising All Other Systems: negative except mentioned in HPI Physical Exam Vital Signs Date Time Temp Pulse Resp B/P (MAP) Pulse Ox O2 Delivery O2 Flow Rate FiO2 01/08/17 00:53 98.2 104 16 102/71 98 Room Air vitals normal Sp02 EP Interpretation: reviewed, normal General Appearance: well appearing, no apparent distress, alert Head: normocephalic, atraumatic Eyes: bilateral eye PERRL, bilateral eye EOMI ENT: hearing grossly normal, normal pharynx Neck: full range of motion, supple, no meningismus Respiratory: chest non-tender, lungs clear, normal breath sounds Cardiovascular #1: regular rate, rhythm, no murmur Gastrointestinal: normal bowel sounds, non tender, no mass, no organomegaly, no bruit, non-distended Musculoskeletal: back normal, normal range of motion, other - Patient uses a wheelchair Neurologic: alert, oriented x3 Psychiatric: mood/affect normal Skin: warm/dry Medical Decision Making Diagnostic Impression: Primary Impression: Chest pain Qualified Codes: R07.9 - Chest pain, unspecified Additional Impressions: Chronic pain Qualified Codes: G89.4 - Chronic pain syndrome Morbid obesity Diarrhea in adult patient Opioid dependence Qualified Codes: F11.20 - Opioid dependence, uncomplicated Opiate withdrawal Abnormal LFTs (liver function tests) Proteinuria Qualified Codes: R80.9 - Proteinuria, unspecified ER Course Patient presents with chest pain with vomiting and diarrhea. He said his ongoing for last 2 to 3 days. Is a chronic issue for him. He was just in the hospital but no mention of this to them. He is beginning to have withdrawal symptoms with shakiness. Labs unremarkable. I discussed the case with Dr. Foy we'll place patient in observation and will for placement to a [facility]. No evidence of ACS, PE, dissection, CHF to name a few. No evidence of obstruction. Patient able family without difficulty. Lab Results Impression labs with elevated LFTs EKG Diagnostic Results Rate: normal Rhythm: NSR ST Segments: no acute changes Rhythm Strip Diag. Results Rhythm Strip Time: 01:34 EP Interpretation: yes Rate: 93 Rhythm: NSR, no PVC's, no ectopy Last Vital Signs Date Time Temp Pulse Resp B/P (MAP) Pulse Ox O2 Delivery O2 Flow Rate FiO2 01/08/17 01:23 98.2 100 16 138/98 98 Room Air Status: improved Disposition: PLACE IN OBSERVATION Condition: Serious Referrals: MARQUEZ FOY (PCP) MATHEW WARE M.D. Jan 08, 2017 01:35
[2017-01-08 01:38] LABS: ANION GAP 16 mmol/L (5-15); CARBON DIOXIDE 21 MMOL/L (21-32); CHLORIDE 99 MMOL/L (98-107); GLOMERULAR FILTRATION RATE > 60 mL/min (>60); POTASSIUM 3.6 MMOL/L (3.5-5.1); SODIUM 136 MMOL/L (136-145)
[2017-01-08 01:51] LABS: ALANINE AMINOTRANSFERASE 83 U/L (12-78); ALBUMIN/GLOBULIN RATIO 1.1 (1.0-2.7); ASPARTATE AMINO TRANSFERASE 40 U/L (15-37); CKMB 3.2 NG/ML (0.0-3.6); TOTAL PROTEIN 8.4 G/DL (6.4-8.2)
[2017-01-08 02:19] LABS: BACTERIA,URINE FEW /HPF; CALCIUM OXALATE CRYSTALS,UR FEW /LPF; MUCUS,URINE MANY /LPF (NONE/OCC); SQUAMOUS EPITHELIAL CELL,UR MODERATE /LPF (NONE/OCC)
[2017-01-08] MEDS ORDERED: Metoclopramide 10mg/2ml Inj IVP ONE (02:45)
[2017-01-08] MEDS ORDERED: DiphenhydrAMINE 50mg/ml Inj IVP ONE (03:00)
[2017-01-08] MEDS ORDERED: Zolpidem 5mg tab ORAL PRN (06:00)
[2017-01-08] MEDS ORDERED: Miralax 17gm pkt ORAL PRN (06:00)
[2017-01-08] MEDS ORDERED: Mylanta II UD 30ml ORAL PRN (06:00)
[2017-01-08] MEDS ORDERED: LORazepam Inj 2mg/ml 1ml IV PRN (06:00)
[2017-01-08] MEDS ORDERED: Morphine Sulfate 4mg/ml Inj IVP PRN (06:00)
[2017-01-08] MEDS ORDERED: Naloxone 0.4mg/ml Inj IV PRN (08:30)
[2017-01-08] MEDS: HYDROmorphone 1mg/ml Carpuject IVP PRN ×4 (09:30→21:59)
[2017-01-08] MEDS: carBAMazepine 200mg tab ORAL SCH ×2 (09:31→21:10)
[2017-01-08] MEDS: Phenytoin Susp 100mg/4ml ORAL SCH (09:31)
[2017-01-08] MEDS: Depakote ER 500mg tab ORAL SCH ×2 (09:32→21:09)
[2017-01-08] MEDS: Lisinopril 20mg tab ORAL SCH (09:32)
--- NOTE | 2017-01-08 09:39 | General Progress Note ---
Assessment/Plan Assessment/Plan (1) Osteosarcoma of femur (2) Morbid obesity (3) Chronic pain syndrome (4) Seizure disorder We will started on Fentanyl patch 100mcg/hr Q72H, Oxycodone 10mg PO 1 tab Q6H PRN mod pain and Dilaudid 1mg IV Q4H PRN severe pain. We will discontinue Morphine IV. Pt was d/w Dr. Muhammad and he concurred. Thank you for the courtesy of this consultation. Subjective Date patient seen: Jan 08, 2017 Time patient seen: 08:00 - am Allergies: Coded Allergies: KETOROLAC (Verified Allergy, Severe, 08/06/16) ASPIRIN (Verified Allergy, Intermediate, 08/06/16) CEPHALEXIN (Verified Allergy, Mild, 12/13/14) FISH DERIVED (Unverified Allergy, Unknown, 08/29/16) PEANUT (Verified Allergy, Unknown, 11/19/15) Uncoded Allergies: fish (Allergy, Unknown, 08/12/16) Subjective REVIEW OF SYSTEMS: Denies rash, fever, chills, sweating, dizziness, drowsiness, blurred vision, sore throat, change in weight. No chest pain. He is complaining of low back and lower extremity pain. SUBJECTIVE: Patient is a known patient from prior admissions. Admitted under the care of Dr. Singh c/o chest pain which he will be seeing a flight tower dispatcher for. Patient has diagnosis of Osteosarcoma taking high levels of Fentanyl patch and Oxycdone as Outpt. We were consulted so patient will have adequate pain control while here in the hospital. Objective Last 24 Hour Vital Signs Date Time Temp Pulse Resp B/P (MAP) Pulse Ox O2 Delivery O2 Flow Rate FiO2 01/08/17 04:20 98.2 96 20 149/98 98 Room Air 01/08/17 03:59 98.0 70 18 128/88 97 Room Air 01/08/17 03:50 98.0 70 18 128/88 97 Room Air 01/08/17 02:56 98.2 77 18 122/91 98 Room Air 01/08/17 01:23 98.2 100 16 138/98 98 Room Air 01/08/17 01:16 104 16 Room Air 01/08/17 00:53 98.2 104 16 102/71 98 Room Air Laboratory Tests 01/08/17 00:57: Urine Color Brown, Urine Appearance Slightly cloudy, Urine pH 5, Urine Specific [place] 1.025, Urine Protein 3+H, Urine Glucose (UA) Negative, Urine Ketones 3+H , Urine Occult Blood 2+H, Urine Nitrite Negative, Urine Bilirubin 2+H, Urine Ictotest , Urine Urobilinogen 4H, Urine Leukocyte Esterase 1+H, Urine RBC 5-10H , Urine WBC 2-4, Urine Squamous Epithelial Cells ModerateH, Urine Calcium Oxalate Crystals Few, Urine Bacteria Few, Urine Mucus ManyH, Urine Opiates Screen Negative, Urine Barbiturates Screen Negative, Phencyclidine (PCP) Screen Negative, Urine Amphetamines Screen Negative, Urine Benzodiazepines Screen Negative, Urine Cocaine Screen Negative, Urine Marijuana (THC) Screen PositiveH 01/08/17 01:15: White Blood Count 15.5H, Red Blood Count 5.46, Hemoglobin 16.2, Hematocrit 50.3 , Mean Corpuscular Volume 92, Mean Corpuscular Hemoglobin 29.7, Mean Corpuscular Hemoglobin Concent 32.3, Red Cell Distribution Width 12.6, Platelet Count 422, Mean Platelet Volume 6.1L, Neutrophils (%) (Auto) 70.4, Lymphocytes ( %) (Auto) 20.5, Monocytes (%) (Auto) 7.1, Eosinophils (%) (Auto) 1.1, Basophils (%) (Auto) 0.9, Sodium Level 136, Potassium Level 3.6, Chloride Level 99, Carbon Dioxide Level 21, Anion Gap 16H, Blood Urea Nitrogen 10, Creatinine 1.0, Estimat Glomerular Filtration Rate > 60, Glucose Level 176H, Calcium Level 10.0 , Total Bilirubin 0.4, Aspartate Amino Transf (AST/SGOT) 40H, Alanine Aminotransferase (ALT/SGPT) 83H, Alkaline Phosphatase 165H, Total Creatine Kinase 620H, Creatine Kinase MB 3.2, Creatine Kinase MB Relative Index 0.5, Troponin I 0.004, Pro-B-Type Natriuretic Peptide 97, Total Protein 8.4H, Albumin 4.4, Globulin 4.0, Albumin/Globulin Ratio 1.1 Height (Feet): 5 Height (Inches): 10.00 Weight (Pounds): 325 Objective GENERAL: Alert and oriented x3. HEENT: PERRLA. NECK: Range of motion is full in all direction. No tenderness to paracervical muscles. No adenopathy. LUNGS: Decreased breath sounds bilaterally. HEART: Regular. ABDOMEN: Obese, tenderness to palpation BACK: Range of motion is decreased on flexion and extension with tenderness to paraspinal muscles. No tenderness to trapezius muscles. EXTREMITIES: No cyanosis, no clubbing, no edema. NEUROLOGICAL EXAM: Lower extremities range of motion is decreased due to patient's medical condition with motor being 4/5 in all muscles bilaterally. LIA HAGEN. Jan 08, 2017 09:39
[2017-01-08] MEDS: Heparin 5000 units/ml inj SUBQ SCH ×2 (09:44→21:07)
--- NOTE | 2017-01-08 10:47 | Diagnostic Imaging Report ---
Indication: Chest pain Comparison: 12/07/16 A single view chest radiograph was obtained. Findings: Cardiomediastinal appearance is within normal limits for age. Pulmonary vascularity is appropriate. The diaphragmatic contour is smooth and costophrenic angles are sharp. No pleural effusions are identified. The bones are unremarkable. Impression: No acute findings
[2017-01-08] MEDS: oxyCODONE 5mg IR tab ORAL PRN ×2 (11:45→21:20)
--- NOTE | 2017-01-08 12:15 | Consultation ---
History of Present Illness General Date patient seen: Jan 08, 2017 Chief Complaint: Chest Pain Referring physician: Dr. Singh Reason for Consultation: chest pain Present Illness HPI 41-year-old with history of COPD, diabetes, hypertension, chronic pain. He' s been in multiple hospital in the past. He is complaining of chest pain for 2 days. He also has vomiting and diarrhea. He has chronic diarrhea. Denies any fever chills denies any shortness of breath. He is admitted to telemetry for further work up. Allergies: Coded Allergies: KETOROLAC (Verified Allergy, Severe, 08/06/16) ASPIRIN (Verified Allergy, Intermediate, 08/06/16) CEPHALEXIN (Verified Allergy, Mild, 12/13/14) FISH DERIVED (Unverified Allergy, Unknown, 08/29/16) PEANUT (Verified Allergy, Unknown, 11/19/15) Uncoded Allergies: fish (Allergy, Unknown, 08/12/16) Medication History Scheduled Amitriptyline HCl (Elavil*), 25 MG ORAL BEDTIME, (Reported) Amlodipine Besylate (Norvasc), 10 MG ORAL DAILY, (Reported) Carbamazepine (Tegretol*), 300 MG PO Q12HR, (Reported) Divalproex Sodium* (Depakote Er*), 1,000 MG ORAL EVERY 12 HOURS, (Reported) Fentanyl 100MCG Patch* (Fentanyl 100MCG Patch*), 1 PATCH TDERMAL EVERY 72 HOURS, (Reported) Fluoxetine Hcl* (Prozac*), 20 MG ORAL DAILY, (Reported) Levofloxacin* (Levaquin*), 500 MG ORAL DAILY, (Reported) Lisinopril (Lisinopril*), 20 MG ORAL DAILY, (Reported) Methylprednisolone (Methylprednisolone*), 4 MG IV Q12HR, (Reported) Phenytoin (Dilantin-125), 250 MG PO DAILY, (Reported) Quetiapine Fumarate* (Seroquel*), 100 MG ORAL QHS, (Reported) Topiramate* (Topamax*), 50 MG ORAL TWICE A DAY, (Reported) Trazodone* (Trazodone*), 100 MG ORAL BEDTIME, (Reported) Scheduled PRN Acetaminophen* (Acetaminophen 325MG Tablet*), 650 MG ORAL Q6H PRN for Mild Pain/ Temp > 100.5, (Reported) Calcium Carbonate (Calcium), 500 MG ORAL Q4HR PRN for Per rx protocol, (Reported ) Hydromorphone HCl/Pf (Dilaudid 2 Mg/Ml Syringe), 2 MG IV Q4HR PRN for For Pain, (Reported) Morphine Sulfate/Pf (Morphine 1 mg/2 ml Syringe), 4 MG IV Q4HR PRN for For Pain, (Reported) Naloxone Hcl (Naloxone Hcl*), 0.4 MG IV for sedation, (Reported) Nitroglycerin (Nitroglycerin), 0.4 MG SL q5minx 3doses PRN for chest pain, ( Reported) Ondansetron Odt* (Zofran Odt*), 4 MG ORAL Q4HR PRN for Nausea & Vomiting, ( Reported) Oxycodone Hcl Ir* (Roxicodone Ir*), 10 MG ORAL Q6H PRN for For Pain, (Reported) Polyethylene Glycol 3350* (Polyethylene Glycol 3350*), 17 GM ORAL BEDTIME PRN for Constipation, (Reported) Promethazine HCl/Codeine (Prometh-Codein 6.25-10 mg/5 ml), 5 ML PO Q6HR PRN for For Cough, (Reported) Temazepam* (Temazepam*), 15 MG ORAL BEDTIME PRN for Insomnia, (Reported) Patient History Healthcare decision maker Resuscitation status Full Code Advanced Directive on File Review of Systems All Other Systems: negative except mentioned in HPI Physical Exam General Appearance: WD/WN Lines, tubes and drains: peripheral HEENT: normocephalic Neck: non-tender Respiratory/Chest: chest wall non-tender, lungs clear Cardiovascular/Chest: normal peripheral pulses, regular rhythm Abdomen: normal bowel sounds Genitourinary/Rectal: normal genital exam Last 24 Hour Vital Signs Date Time Temp Pulse Resp B/P (MAP) Pulse Ox O2 Delivery O2 Flow Rate FiO2 01/08/17 09:35 98.2 01/08/17 09:33 96 149/98 01/08/17 09:32 149/98 01/08/17 08:00 98.2 100 20 140/85 95 Room Air 01/08/17 04:20 98.2 96 20 149/98 98 Room Air 01/08/17 03:59 98.0 70 18 128/88 97 Room Air 01/08/17 03:50 98.0 70 18 128/88 97 Room Air 01/08/17 02:56 98.2 77 18 122/91 98 Room Air 01/08/17 01:23 98.2 100 16 138/98 98 Room Air 01/08/17 01:16 104 16 Room Air 01/08/17 00:53 98.2 104 16 102/71 98 Room Air Intake and Output 01/08/17 01/09/17 19:00 07:00 Intake Total 200 ml Balance 200 ml Intake Oral 200 ml Laboratory Tests Test 01/08/17 00:57 01/08/17 01:15 Urine Color Brown Urine Appearance Slightly cloudy Urine pH 5 (4.5-8.0) Urine Specific [place] 1.025 (1.005-1.035) Urine Protein 3+ (NEGATIVE) H Urine Glucose (UA) Negative (NEGATIVE) Urine Ketones 3+ (NEGATIVE) H Urine Occult Blood 2+ (NEGATIVE) H Urine Nitrite Negative (NEGATIVE) Urine Bilirubin 2+ (NEGATIVE) H Urine Ictotest Urine Urobilinogen 4 MG/DL (0.0-1.0) H Urine Leukocyte Esterase 1+ (NEGATIVE) H Urine RBC 5-10 /HPF (0 - 0) H Urine WBC 2-4 /HPF (0 - 0) Urine Squamous Epithelial Cells Moderate /LPF (NONE/OCC) H Urine Calcium Oxalate Crystals Few /LPF (NONE) Urine Bacteria Few /HPF (NONE) Urine Mucus Many /LPF (NONE/OCC) H Urine Opiates Screen Negative (NEGATIVE) Urine Barbiturates Screen Negative (NEGATIVE) Phencyclidine (PCP) Screen Negative (NEGATIVE) Urine Amphetamines Screen Negative (NEGATIVE) Urine Benzodiazepines Screen Negative (NEGATIVE) Urine Cocaine Screen Negative (NEGATIVE) Urine Marijuana (THC) Screen Positive (NEGATIVE) H White Blood Count 15.5 K/UL (4.8-10.8) H Red Blood Count 5.46 M/UL (4.70-6.10) Hemoglobin 16.2 G/DL (14.2-18.0) Hematocrit 50.3 % (42.0-52.0) Mean Corpuscular Volume 92 FL (80-99) Mean Corpuscular Hemoglobin 29.7 PG (27.0-31.0) Mean Corpuscular Hemoglobin Concent 32.3 G/DL (32.0-36.0) Red Cell Distribution Width 12.6 % (11.6-14.8) Platelet Count 422 K/UL (150-450) Mean Platelet Volume 6.1 FL (6.5-10.1) L Neutrophils (%) (Auto) 70.4 % (45.0-75.0) Lymphocytes (%) (Auto) 20.5 % (20.0-45.0) Monocytes (%) (Auto) 7.1 % (1.0-10.0) Eosinophils (%) (Auto) 1.1 % (0.0-3.0) Basophils (%) (Auto) 0.9 % (0.0-2.0) Sodium Level 136 MMOL/L (136-145) Potassium Level 3.6 MMOL/L (3.5-5.1) Chloride Level 99 MMOL/L (98-107) Carbon Dioxide Level 21 MMOL/L (21-32) Anion Gap 16 mmol/L (5-15) H Blood Urea Nitrogen 10 mg/dL (7-18) Creatinine 1.0 MG/DL (0.55-1.30) Estimat Glomerular Filtration Rate > 60 mL/min (>60) Glucose Level 176 MG/DL (74-106) H Calcium Level 10.0 MG/DL (8.5-10.1) Total Bilirubin 0.4 MG/DL (0.2-1.0) Aspartate Amino Transf (AST/SGOT) 40 U/L (15-37) H Alanine Aminotransferase (ALT/SGPT) 83 U/L (12-78) H Alkaline Phosphatase 165 U/L (46-116) H Total Creatine Kinase 620 U/L (26-308) H Creatine Kinase MB 3.2 NG/ML (0.0-3.6) Creatine Kinase MB Relative Index 0.5 Troponin I 0.004 ng/mL (0.000-0.056) Pro-B-Type Natriuretic Peptide 97 pg/mL (0-125) Total Protein 8.4 G/DL (6.4-8.2) H Albumin 4.4 G/DL (3.4-5.0) Globulin 4.0 g/dL Albumin/Globulin Ratio 1.1 (1.0-2.7) Height (Feet): 5 Height (Inches): 10.00 Weight (Pounds): 325 Medications Current Medications Medications (Trade) Dose Ordered Sig/Robert Route PRN Reason Start Time Stop Time Status Last Admin Dose Admin Acetaminophen (Tylenol) 650 mg Q4H PRN ORAL fever 01/08/17 06:00 02/07/17 05:59 Al Hydroxide/Mg Hydroxide (Mylanta II) 30 ml Q6H PRN ORAL dyspepsia 01/08/17 06:00 02/07/17 05:59 Amitriptyline HCl (Elavil) 25 mg BEDTIME ORAL 01/08/17 21:00 02/07/17 20:59 Amlodipine Besylate (Norvasc) 10 mg DAILY ORAL 01/08/17 09:00 02/07/17 08:59 01/08/17 09:33 Carbamazepine (TEGretol) 300 mg Q12HR ORAL 01/08/17 09:00 02/07/17 08:59 01/08/17 09:31 Dextrose (Dextrose 50%) STAT PRN IV Hypoglycemia 01/08/17 06:00 02/07/17 05:59 Divalproex Sodium (Depakote ER) 1,000 mg EVERY 12 HOURS ORAL 01/08/17 09:00 02/07/17 08:59 01/08/17 09:32 Fentanyl (Duragesic) 1 patch Q72H TDERMAL 01/10/17 18:00 01/17/17 17:59 Heparin Sodium (Porcine) (Heparin 5000 units/ml) 5,000 units EVERY 12 HOURS SUBQ 01/08/17 09:00 02/07/17 08:59 01/08/17 09:44 Hydromorphone HCl (Dilaudid) 1 mg Q4H PRN IVP severe pain 01/08/17 08:30 01/15/17 08:29 01/08/17 09:30 Lisinopril (Prinivil) 20 mg DAILY ORAL 01/08/17 09:00 02/07/17 08:59 01/08/17 09:32 Lorazepam (Ativan 2mg/ml 1ml) 0.5 mg Q4H PRN IV For Anxiety 01/08/17 06:00 01/15/17 05:59 Miscellaneous Medication (fentaNYL Destruction) 1 ea Q72H MISC 01/10/17 18:00 02/09/17 17:59 Naloxone HCl (Narcan) 0.1 mg PRN IV Sedation scale 3 or 4 01/08/17 08:30 Ondansetron HCl (Zofran) 4 mg Q6H PRN IVP Nausea & Vomiting 01/08/17 06:00 02/07/17 05:59 01/08/17 09:30 Oxycodone HCl (Roxicodone) 10 mg Q6H PRN ORAL moderate Breakthrough Pain 01/08/17 08:30 01/15/17 08:29 01/08/17 11:45 Phenytoin (Dilantin) 250 mg DAILY ORAL 01/08/17 09:00 02/07/17 08:59 01/08/17 09:31 Polyethylene Glycol (Miralax) 17 gm HSPRN PRN ORAL Constipation 01/08/17 06:00 02/07/17 05:59 Quetiapine Fumarate (SEROquel) 100 mg QHS ORAL 01/08/17 21:00 02/07/17 20:59 Trazodone HCl (Desyrel) 100 mg BEDTIME ORAL 01/08/17 21:00 02/07/17 20:59 Zolpidem Tartrate (Ambien) 5 mg HSPRN PRN ORAL Insomnia 01/08/17 06:00 01/15/17 05:59 Assessment/Plan Problem List: (1) ACS (acute coronary syndrome) ICD Codes: I24.9 - Acute ischemic heart disease, unspecified SNOMED: 769736062 (2) COPD (chronic obstructive pulmonary disease) ICD Codes: J44.9 - Chronic obstructive pulmonary disease, unspecified SNOMED: 82689735 (3) Chronic diarrhea ICD Codes: K52.9 - Noninfective gastroenteritis and colitis, unspecified SNOMED: 244768091 (4) Psychiatric disorder ICD Codes: F99 - Mental disorder, not otherwise specified SNOMED: 32271406, 703795280 (5) Morbid obesity ICD Codes: E66.01 - Morbid (severe) obesity due to excess calories SNOMED: 166358948 Assessment/Plan serial ekg, troponin echo cardiology to see pain management LAUREN OCHOA Jan 08, 2017 12:15
--- NOTE | 2017-01-08 14:41 | General Progress Note ---
Progress Note Progress Note [id number] full note dictated MARIANA LUND Jan 08, 2017 14:40
[2017-01-08] MEDS: TraZODone 100mg tab ORAL SCH (21:10)
--- NOTE | 2017-01-08 22:45 | History and Physical Report ---
DATE OF ADMISSION: 01/08/2017 TIME: At 2 p.m. ATTENDING PHYSICIAN: Jeremiah Singh D.O. CONSULTANTS: 1. Ministerio Joe M.D. 2. Ignacio Muhammad M.D. 3. Awa Thomas M.D. CHIEF COMPLAINT: COPD exacerbation and an exacerbation of his chronic pain. BRIEF HISTORY: This is a 41-year-old male, who lives at home, presented with increased shortness of breath and also increased pain all over. He has chronic pain, PTSD, and COPD and was diagnosed with COPD exacerbation with intractable pain, admitted to the telemetry for further care. Currently calm in bed. Slight general pain, 05/08. No complaints. PAST MEDICAL HISTORY: Include PTSD, CVA, right leg sarcoma, CHF, and schizophrenia. PAST SURGICAL HISTORY: Gallbladder. MEDICATIONS: Include Duragesic, fentanyl, Seroquel, Desyrel, Norvasc, Tegretol, Depakote, Prinivil, Dilantin, heparin, Narcan, Dilaudid, oxycodone, Tylenol, and MiraLax. ALLERGIES: Keflex, aspirin, and Toradol. SOCIAL HISTORY: Positive smoking. No alcohol. No intravenous drug abuse. FAMILY HISTORY: Noncontributory. REVIEW OF SYSTEMS: No chest pain. Slight short of breath. No nausea, vomiting, or diarrhea. PHYSICAL EXAMINATION: GENERAL: Calm in bed, oriented x3, in no acute distress. VITAL SIGNS: Show temperature is 97 degrees, pulse 90, respirations 20, and blood pressure 125/70. CARDIOVASCULAR: No murmur. LUNGS: Distant and clear. ABDOMEN: Bowel sounds are positive. Nontender and nondistended. EXTREMITIES: No cyanosis, clubbing, or edema. NEUROLOGIC: Cranial nerves II through XII grossly intact. Deep tendon reflexes 2+/4. Muscle strength 5/5. LABORATORY DATA: Labs at this time show white count is 15.5, hemoglobin and hematocrit 16 and 50, and platelets 422,000. BMP shows AST 40, ALT 83, and alkaline phosphatase 162. CK 620. Urine toxicology positive for marijuana. Urinalysis, 2+ occult blood, 1+ leukocyte esterase. ASSESSMENT: 1. Exacerbation of chronic obstructive pulmonary disease and chronic pain. 2. Urinary tract infection. 3. Leukocytosis. 4. Posttraumatic stress disorder. 5. Cerebrovascular accident. 6. Right leg sarcoma. 7. Congestive heart failure. 8. Schizophrenia. PLAN: 1. Continue premedications. 2. OT, PT, and dietary evaluation. 3. CBC and BMP in the morning. 4. Pain control. 5. Antibiotics per Infectious Diseases. 6. Dr. Joe, Dr. Muhammad, Dr. Thomas, Dr. Del Valle, Dr. Abbott, and Dr. Joaquin to consult. Jeremiah Singh D.O. DR: Fartun JOB#: [id number] CC:
[2017-01-09] VITALS: BP 114/63
--- NOTE | 2017-01-09 00:45 | Consultation ---
DATE OF CONSULTATION: 01/08/2017 NEPHROLOGY CONSULTATION CONSULTING PHYSICIAN: Sonja Joaquin M.D. REFERRING PHYSICIAN: Jeremiah Singh M.D. REASON FOR CONSULTATION: Abnormal electrolytes, hematuria, and proteinuria. HISTORY OF PRESENT ILLNESS: The patient is a 41-year-old male with past medical history significant for history of COPD, hypertension, diabetes, morbid obesity, history of chronic pain, and had multiple admissions in the past, admission in November at [facility]. He presented to the emergency room complaining of increasing abdominal pain, nausea, vomiting, and presented to ER. In the ER, the patient was found to have urinary tract infection, positive hematuria and proteinuria. Consequently, the patient was admitted to the hospital. I was called for management of his electrolyte imbalance. PAST MEDICAL HISTORY: 1. History of COPD. 2. CHF. 3. Diabetes. 4. Hypertension. 5. Morbid obesity. 6. History of chronic back pain. PAST SURGICAL HISTORY: None. ALLERGIES: The patient is allergic to: 1. Ketorolac. 2. Aspirin. 3. Cephalosporin. 4. Fish. 5. Peanut. REVIEW OF SYSTEMS: GENERAL: He complained of generalized weakness. Denied any fever, chills, or night sweats. HEAD AND NECK: Denies any dysphagia, odynophagia, blurry vision, headache, or neck stiffness. PULMONARY: Mild shortness of breath. No cough. No sputum. CARDIOVASCULAR: Denies any complaint of chest pain. No palpitations. No orthopnea or lower extremity edema. GASTROINTESTINAL: Denies any nausea, vomiting, diarrhea, hematemesis, or hematochezia. GENITOURINARY: Denies any dysuria, frequency, or hematuria. MUSCULOSKELETAL: He denies any weakness or numbness. PHYSICAL EXAMINATION: VITAL SIGNS: The patient had temperature of 98, blood pressure 102/71, pulse rate of 104, and respiratory rate of 18. HEAD AND NECK: No JVP. No LAD. No thyromegaly. Extraocular movement intact. Pupils are reactive to light and accommodation. LUNGS: Decreased breathing sound of the lower lung. GASTROINTESTINAL: Abdomen is soft, nontender, and nondistended. EXTREMITIES: No edema. No clubbing. No cyanosis. LABORATORY AND DIAGNOSTIC DATA: Specific gravity 1.025, protein 3+, ketones 3+, blood 2+, WBCs of 2-4, RBCs 5-10, leukocyte esterase 1+. Chemistry reveal sodium 136, potassium 3.6, 99 chloride, 21 bicarbonate, BUN of 10, creatinine of 1, glucose of 176, and calcium of 10. AST of 40, ALT of 83, and alkaline phosphatase of 165. Total CPK of 620. Total protein of 8.4. Albumin of 4.4. CBC revealed WBC count of 15,000, hemoglobin of 16.2, hematocrit of 50, and platelet count of 422,000. Chest x-ray, no acute finding. ASSESSMENT: 1. Proteinuria. 2. Hematuria. 3. Morbid obesity. 4. Diabetes. 5. Hypertension. PLAN: To obtain a random urine protein and creatinine ratio to calculate the proteinuria. Check the urine sodium and creatinine to calculate fractional excretion of sodium. Check the microalbuminuria. Check the A1c, recommended for this patient is 6 to 7. Monitor renal function and electrolytes closely. Repeat clean-catch urine. At the end, I would like to thank, Dr. Jeremiah Singh, for allowing me to participate in the care of this patient. Sonja Joaquin M.D. DR: Donna JOB#: [id number] CC:
[2017-01-09] MEDS: HYDROmorphone 1mg/ml Carpuject IVP PRN ×5 (01:59→21:49)
[2017-01-09 04:00] VITALS: BP 149/75
[2017-01-09 07:53] LABS: BASOPHILS % (AUTO) 0.9 % (0.0-2.0); EOSINOPHILS % (AUTO) 2.7 % (0.0-3.0); LYMPHOCYTES % (AUTO) 39.1 % (20.0-45.0); MEAN CORPUSCULAR HEMOGLOBIN 31.4 PG (27.0-31.0); MEAN CORPUSCULAR HGB CONC 34.1 G/DL (32.0-36.0); MEAN CORPUSCULAR VOLUME 92 FL (80-99); MEAN PLATELET VOLUME 6.3 FL (6.5-10.1); MONOCYTES % (AUTO) 8.1 % (1.0-10.0); NEUTROPHILS % (AUTO) 49.2 % (45.0-75.0); PLATELET COUNT 294 K/UL (150-450); RED BLOOD COUNT 4.35 M/UL (4.70-6.10); RED CELL DISTRIBUTION WIDTH 12.9 % (11.6-14.8); WHITE BLOOD COUNT 9.1 K/UL (4.8-10.8)
--- NOTE | 2017-01-09 08:13 | Pulmonology Progress Note ---
Assessment/Plan Problems: (1) ACS (acute coronary syndrome) (2) COPD (chronic obstructive pulmonary disease) (3) Chronic diarrhea (4) Psychiatric disorder (5) Morbid obesity Assessment/Plan symptomatic treatment psych evaluation med/surg dc planning Subjective ROS Limited/Unobtainable: No Constitutional: Reports: no symptoms Respiratory: Reports: no symptoms Allergies: Coded Allergies: KETOROLAC (Verified Allergy, Severe, 08/06/16) ASPIRIN (Verified Allergy, Intermediate, 08/06/16) CEPHALEXIN (Verified Allergy, Mild, 12/13/14) FISH DERIVED (Unverified Allergy, Unknown, 08/29/16) PEANUT (Verified Allergy, Unknown, 11/19/15) Uncoded Allergies: fish (Allergy, Unknown, 08/12/16) Objective Last 24 Hour Vital Signs Date Time Temp Pulse Resp B/P (MAP) Pulse Ox O2 Delivery O2 Flow Rate FiO2 01/09/17 05:02 80 01/09/17 04:00 97.2 90 20 149/75 97 Room Air 01/09/17 02:56 98.2 01/09/17 01:35 78 01/09/17 00:00 98.2 95 20 114/63 97 Room Air 01/08/17 20:00 98 01/08/17 20:00 98.2 95 20 128/76 97 Room Air 01/08/17 16:00 98.2 89 20 120/63 92 Room Air 01/08/17 16:00 86 01/08/17 12:00 92 01/08/17 12:00 97.5 90 20 125/70 92 Room Air 01/08/17 09:35 98.2 01/08/17 09:33 96 149/98 01/08/17 09:32 149/98 General Appearance: WD/WN HEENT: normocephalic, anicteric Respiratory/Chest: chest wall non-tender, lungs clear Cardiovascular: normal peripheral pulses, normal rate Abdomen: normal bowel sounds, soft, non tender Genitourinary: normal external genitalia Extremities: no clubbing Skin: no rash Laboratory Tests 01/08/17 18:10: Urine Eosinophils None seen, Urine Random Creatinine [Pending], Urine Random Microalbumin [Pending], Urine Random Total Protein 169H, Urine Random Sodium 39 , Urine Microalbumin/Creatinine Ratio [Pending] 01/09/17 07:20: White Blood Count 9.1, Red Blood Count 4.35L, Hemoglobin 13.7L, Hematocrit 40.1L , Mean Corpuscular Volume 92, Mean Corpuscular Hemoglobin 31.4H, Mean Corpuscular Hemoglobin Concent 34.1, Red Cell Distribution Width 12.9, Platelet Count 294, Mean Platelet Volume 6.3L, Neutrophils (%) (Auto) 49.2, Lymphocytes ( %) (Auto) 39.1, Monocytes (%) (Auto) 8.1, Eosinophils (%) (Auto) 2.7, Basophils (%) (Auto) 0.9, Erythrocyte Sedimentation Rate [Pending], Sodium Level [Pending] , Potassium Level [Pending], Chloride Level [Pending], Carbon Dioxide Level [ Pending], Blood Urea Nitrogen [Pending], Creatinine [Pending], Estimat Glomerular Filtration Rate [Pending], Glucose Level [Pending], Calcium Level [ Pending], Phosphorus Level [Pending], Magnesium Level [Pending], Total Bilirubin [Pending], Aspartate Amino Transf (AST/SGOT) [Pending], Alanine Aminotransferase (ALT/SGPT) [Pending], Alkaline Phosphatase [Pending], C- Reactive Protein, Quantitative [Pending], Total Protein [Pending], Albumin [ Pending], Globulin [Pending], Thyroid Stimulating Hormone (TSH) [Pending] Current Medications Medications (Trade) Dose Ordered Sig/Robert Route PRN Reason Start Time Stop Time Status Last Admin Dose Admin Acetaminophen (Tylenol) 650 mg Q4H PRN ORAL fever 01/08/17 06:00 02/07/17 05:59 Al Hydroxide/Mg Hydroxide (Mylanta II) 30 ml Q6H PRN ORAL dyspepsia 01/08/17 06:00 02/07/17 05:59 Amitriptyline HCl (Elavil) 25 mg BEDTIME ORAL 01/08/17 21:00 02/07/17 20:59 01/08/17 21:11 Amlodipine Besylate (Norvasc) 10 mg DAILY ORAL 01/08/17 09:00 02/07/17 08:59 01/08/17 09:33 Carbamazepine (TEGretol) 300 mg Q12HR ORAL 01/08/17 09:00 02/07/17 08:59 01/08/17 21:10 Dextrose (Dextrose 50%) STAT PRN IV Hypoglycemia 01/08/17 06:00 02/07/17 05:59 Divalproex Sodium (Depakote ER) 1,000 mg EVERY 12 HOURS ORAL 01/08/17 09:00 02/07/17 08:59 01/08/17 21:09 Fentanyl (Duragesic) 1 patch Q72H TDERMAL 01/10/17 18:00 01/17/17 17:59 Heparin Sodium (Porcine) (Heparin 5000 units/ml) 5,000 units EVERY 12 HOURS SUBQ 01/08/17 09:00 02/07/17 08:59 01/08/17 21:07 Hydromorphone HCl (Dilaudid) 1 mg Q4H PRN IVP severe pain 01/08/17 08:30 01/15/17 08:29 01/09/17 01:59 Lisinopril (Prinivil) 20 mg DAILY ORAL 01/08/17 09:00 02/07/17 08:59 01/08/17 09:32 Lorazepam (Ativan 2mg/ml 1ml) 0.5 mg Q4H PRN IV For Anxiety 01/08/17 06:00 01/15/17 05:59 Miscellaneous Medication (fentaNYL Destruction) 1 ea Q72H MISC 01/10/17 18:00 02/09/17 17:59 Naloxone HCl (Narcan) 0.1 mg PRN IV Sedation scale 3 or 4 01/08/17 08:30 Ondansetron HCl (Zofran) 4 mg Q6H PRN IVP Nausea & Vomiting 01/08/17 06:00 02/07/17 05:59 01/08/17 20:14 Oxycodone HCl (Roxicodone) 10 mg Q6H PRN ORAL moderate Breakthrough Pain 01/08/17 08:30 01/15/17 08:29 01/08/17 21:20 Phenytoin (Dilantin) 250 mg DAILY ORAL 01/08/17 09:00 02/07/17 08:59 01/08/17 09:31 Polyethylene Glycol (Miralax) 17 gm HSPRN PRN ORAL Constipation 01/08/17 06:00 02/07/17 05:59 Quetiapine Fumarate (SEROquel) 100 mg QHS ORAL 01/08/17 21:00 02/07/17 20:59 01/08/17 21:10 Trazodone HCl (Desyrel) 100 mg BEDTIME ORAL 01/08/17 21:00 02/07/17 20:59 01/08/17 21:10 Zolpidem Tartrate (Ambien) 5 mg HSPRN PRN ORAL Insomnia 01/08/17 06:00 01/15/17 05:59 LAUREN OCHOA Jan 09, 2017 08:13
[2017-01-09 08:15] LABS: MAGNESIUM 1.9 MG/DL (1.8-2.4); PHOSPHORUS 4.7 MG/DL (2.5-4.9)
--- NOTE | 2017-01-09 08:29 | General Progress Note ---
Assessment/Plan Problem List: (1) COPD (chronic obstructive pulmonary disease) ICD Codes: J44.9 - Chronic obstructive pulmonary disease, unspecified SNOMED: 27341852 (2) PTSD (post-traumatic stress disorder) ICD Codes: F43.10 - Post-traumatic stress disorder, unspecified SNOMED: 32451200 (3) Chronic pain ICD Codes: G89.29 - Other chronic pain SNOMED: 86443727 (4) CVA (cerebral vascular accident) ICD Codes: I63.9 - Cerebral infarction, unspecified SNOMED: 654029458 (5) CHF (congestive heart failure) ICD Codes: I50.9 - Heart failure, unspecified SNOMED: 59510390 (6) UTI (urinary tract infection) ICD Codes: N39.0 - Urinary tract infection, site not specified SNOMED: 84447139 (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 - Malignant neoplasm of long bones of unspecified lower limb SNOMED: 184782178, 947136263 Status: stable, progressing, tolerating diet Assessment/Plan ot pt diet abx cbc bmp am Subjective Constitutional: Reports: weakness Allergies: Coded Allergies: KETOROLAC (Verified Allergy, Severe, 08/06/16) ASPIRIN (Verified Allergy, Intermediate, 08/06/16) CEPHALEXIN (Verified Allergy, Mild, 12/13/14) FISH DERIVED (Unverified Allergy, Unknown, 08/29/16) PEANUT (Verified Allergy, Unknown, 11/19/15) Uncoded Allergies: fish (Allergy, Unknown, 08/12/16) All Systems: reviewed and negative except above Subjective sl gen pain Objective Last 24 Hour Vital Signs Date Time Temp Pulse Resp B/P (MAP) Pulse Ox O2 Delivery O2 Flow Rate FiO2 01/09/17 05:02 80 01/09/17 04:00 97.2 90 20 149/75 97 Room Air 01/09/17 02:56 98.2 01/09/17 01:35 78 01/09/17 00:00 98.2 95 20 114/63 97 Room Air 01/08/17 20:00 98 01/08/17 20:00 98.2 95 20 128/76 97 Room Air 01/08/17 16:00 98.2 89 20 120/63 92 Room Air 01/08/17 16:00 86 01/08/17 12:00 92 01/08/17 12:00 97.5 90 20 125/70 92 Room Air 01/08/17 09:35 98.2 01/08/17 09:33 96 149/98 01/08/17 09:32 149/98 Laboratory Tests 01/08/17 18:10: Urine Eosinophils None seen, Urine Random Creatinine [Pending], Urine Random Microalbumin [Pending], Urine Random Total Protein 169H, Urine Random Sodium 39 , Urine Microalbumin/Creatinine Ratio [Pending] 01/09/17 07:20: White Blood Count 9.1, Red Blood Count 4.35L, Hemoglobin 13.7L, Hematocrit 40.1L , Mean Corpuscular Volume 92, Mean Corpuscular Hemoglobin 31.4H, Mean Corpuscular Hemoglobin Concent 34.1, Red Cell Distribution Width 12.9, Platelet Count 294, Mean Platelet Volume 6.3L, Neutrophils (%) (Auto) 49.2, Lymphocytes ( %) (Auto) 39.1, Monocytes (%) (Auto) 8.1, Eosinophils (%) (Auto) 2.7, Basophils (%) (Auto) 0.9, Erythrocyte Sedimentation Rate [Pending], Sodium Level [Pending] , Potassium Level [Pending], Chloride Level [Pending], Carbon Dioxide Level [ Pending], Blood Urea Nitrogen [Pending], Creatinine [Pending], Estimat Glomerular Filtration Rate [Pending], Glucose Level [Pending], Calcium Level [ Pending], Phosphorus Level 4.7, Magnesium Level 1.9, Total Bilirubin [Pending], Aspartate Amino Transf (AST/SGOT) [Pending], Alanine Aminotransferase (ALT/SGPT ) [Pending], Alkaline Phosphatase [Pending], C-Reactive Protein, Quantitative 1.0H, Total Protein [Pending], Albumin [Pending], Globulin [Pending], Thyroid Stimulating Hormone (TSH) [Pending] Height (Feet): 5 Height (Inches): 10.00 Weight (Pounds): 325 General Appearance: alert EENT: normal ENT inspection Neck: normal alignment Cardiovascular: normal peripheral pulses, normal rate, regular rhythm Respiratory/Chest: chest wall non-tender, lungs clear, normal breath sounds Abdomen: normal bowel sounds, non tender, soft Extremities: normal inspection Edema: no edema noted Arm (L), no edema noted Arm (R), no edema noted Leg (L), no edema noted Leg (R), no edema noted Pedal (L), no edema noted Pedal (R), no edema noted Generalized Neurologic: responsive Skin: normal pigmentation, warm/dry MARQUEZ FOY Jan 09, 2017 08:29
[2017-01-09 09:30] VITALS: BP 125/82
[2017-01-09] MEDS: carBAMazepine 200mg tab ORAL SCH ×2 (09:33→20:53)
[2017-01-09] MEDS: Depakote ER 500mg tab ORAL SCH ×2 (09:35→20:58)
[2017-01-09] MEDS: Heparin 5000 units/ml inj SUBQ SCH ×2 (09:36→20:55)
[2017-01-09] MEDS: Lisinopril 20mg tab ORAL SCH (09:37)
[2017-01-09] MEDS: Phenytoin Susp 100mg/4ml ORAL SCH (09:37)
[2017-01-09 09:44] LABS: ALANINE AMINOTRANSFERASE 50 U/L (12-78); ANION GAP 13 mmol/L (5-15); ASPARTATE AMINO TRANSFERASE 19 U/L (15-37); CALCIUM 8.4 MG/DL (8.5-10.1); CARBON DIOXIDE 23 MMOL/L (21-32); CHLORIDE 103 MMOL/L (98-107); CREATININE 0.8 MG/DL (0.55-1.30); GLOMERULAR FILTRATION RATE > 60 mL/min (>60); POTASSIUM 3.5 MMOL/L (3.5-5.1); SODIUM 138 MMOL/L (136-145); TOTAL PROTEIN 5.9 G/DL (6.4-8.2)
--- NOTE | 2017-01-09 14:09 | Nephrology Progress Note ---
Assessment/Plan Assessment 1. Proteinuria. 2. Hematuria. 3. Morbid obesity. 4. Diabetes. 5. Hypertension. Plan plan to continue current monitoring renal function avoid NSAID replace electrolyte as need it repeat u/a Subjective Constitutional: Reports: no symptoms HEENT: Reports: no symptoms Genitourinary: Reports: no symptoms 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: Reports: no symptoms Subjective alert and awake c/o nausea and vomiting also has decrease appetite Objective Objective Last 24 Hour Vital Signs Date Time Temp Pulse Resp B/P (MAP) Pulse Ox O2 Delivery O2 Flow Rate FiO2 01/09/17 11:52 78 01/09/17 09:52 98.1 01/09/17 09:37 125/82 01/09/17 09:36 82 125/82 01/09/17 09:30 98.1 82 20 125/82 95 Room Air 01/09/17 08:04 68 01/09/17 05:02 80 01/09/17 04:00 97.2 90 20 149/75 97 Room Air 01/09/17 01:35 78 01/09/17 00:00 98.2 95 20 114/63 97 Room Air 01/08/17 20:00 98 01/08/17 20:00 98.2 95 20 128/76 97 Room Air 01/08/17 16:00 98.2 89 20 120/63 92 Room Air 01/08/17 16:00 86 Intake and Output 01/09/17 01/10/17 19:00 07:00 Intake Total 240 ml Balance 240 ml Intake Oral 240 ml Laboratory Tests 01/08/17 18:10: Urine Eosinophils None seen, Urine Random Creatinine [Pending], Urine Random Microalbumin [Pending], Urine Random Total Protein 169H, Urine Random Sodium 39 , Urine Microalbumin/Creatinine Ratio [Pending] 01/09/17 07:20: White Blood Count 9.1, Red Blood Count 4.35L, Hemoglobin 13.7L, Hematocrit 40.1L , Mean Corpuscular Volume 92, Mean Corpuscular Hemoglobin 31.4H, Mean Corpuscular Hemoglobin Concent 34.1, Red Cell Distribution Width 12.9, Platelet Count 294, Mean Platelet Volume 6.3L, Neutrophils (%) (Auto) 49.2, Lymphocytes ( %) (Auto) 39.1, Monocytes (%) (Auto) 8.1, Eosinophils (%) (Auto) 2.7, Basophils (%) (Auto) 0.9, Erythrocyte Sedimentation Rate 5, Sodium Level 138, Potassium Level 3.5, Chloride Level 103, Carbon Dioxide Level 23, Anion Gap 13, Blood Urea Nitrogen 10, Creatinine 0.8, Estimat Glomerular Filtration Rate > 60, Glucose Level 181H, Calcium Level 8.4L, Phosphorus Level 4.7, Magnesium Level 1.9, Total Bilirubin 0.0L, Aspartate Amino Transf (AST/SGOT) 19, Alanine Aminotransferase (ALT/SGPT) 50, Alkaline Phosphatase 113, C-Reactive Protein, Quantitative 1.0H, Total Protein 5.9L, Albumin 3.0L, Globulin 2.9, Albumin/ Globulin Ratio 1.0, Thyroid Stimulating Hormone (TSH) 1.130 Height (Feet): 5 Height (Inches): 10.00 Weight (Pounds): 325 Objective HEAD AND NECK: No JVP. No LAD. No thyromegaly. Extraocular movement intact. Pupils are reactive to light and accommodation. LUNGS: Decreased breathing sound of the lower lung. GASTROINTESTINAL: Abdomen is soft, nontender, and nondistended. EXTREMITIES: No edema. No clubbing. No cyanosis. MARIANA LUND Jan 09, 2017 14:09
[2017-01-09] MEDS: oxyCODONE 5mg IR tab ORAL PRN (15:56)
[2017-01-09 20:00] VITALS: BP 148/80
[2017-01-09] MEDS: TraZODone 100mg tab ORAL SCH (20:53)
--- NOTE | 2017-01-09 21:30 | Consultation ---
DATE OF CONSULTATION: 01/09/2017 INFECTIOUS DISEASES CONSULTATION CONSULTING PHYSICIAN: Reyes Stone M.D. REFERRING PHYSICIAN: Jeremiah Singh D.O. This consultation has been done on behalf of Dr. Juwan Hightower. REASON FOR CONSULTATION: Urinary tract infection. HISTORY OF PRESENTING ILLNESS: This is a 41-year-old gentleman with history of chronic pain syndrome, COPD, and PTSD, who came in with opiate withdrawal. He was found to have urinary tract infection and leukocytosis and an Infectious Diseases consultation has been obtained for antibiotics. PAST MEDICAL HISTORY: 1. History of CVA. 2. History of right leg sarcoma. 3. Congestive heart failure. 4. PTSD. 5. Schizophrenia. 6. Chronic obstructive pulmonary disease. 7. Hypertension. 8. Seizures. MEDICATIONS: As an inpatient, the patient is on fentanyl, amitriptyline, Seroquel, trazodone, Norvasc, Tegretol, Depakote, lisinopril, Dilantin, subcutaneous heparin, Narcan, oxycodone, Tylenol, MiraLAX, Zofran, Ativan, Ambien, and Mylanta. ALLERGIES: 1. Aspirin. 2. Keflex, which produces anaphylaxis. 3. Fish. 4. Ketorolac. 5. Peanuts. SOCIAL HISTORY: He is a smoker. He does not drink alcohol. No intravenous drug use. He does use opiates. FAMILY HISTORY: Positive for heart disease. REVIEW OF SYSTEMS: RESPIRATORY: No fever or chills. He does have a cough. No shortness of breath or chest pain. CARDIAC: No chest pain. No palpitations. No dizziness. No syncope. GASTROINTESTINAL: He had nausea. No vomiting. No abdominal pain or diarrhea. PHYSICAL EXAMINATION: VITAL SIGNS: Temperature of 98.1, T-max of 98.2, pulse of 82, respiratory rate 20, blood pressure 125/82, and O2 saturation of 95%. HEENT: Pupils are equally reactive to light and accommodation. Mouth appears clean without thrush. NECK: Supple. No adenopathy. No JVD. CARDIOVASCULAR: Regular rate and rhythm. No murmurs. LUNGS: Clear to auscultation bilaterally. No crackles. No wheezes. ABDOMEN: Soft and nontender. No organomegaly. EXTREMITIES: No cyanosis. No clubbing. No edema. LABORATORY AND DIAGNOSTIC DATA: White count of 15.5 yesterday and white count of 9.1 today, hemoglobin 13.7, hematocrit 40.1, MCV 92, and platelet count of 294, with neutrophils of 49%. Sodium 138, potassium 3.5, chloride 103, bicarbonate 23, BUN 10, creatinine 0.8, and glucose 181. Calcium 8.4. Total bilirubin was 0. AST 19, ALT 50, and alkaline phosphatase 113. Total protein 5.9. Albumin 3. C-reactive protein of 1. UA showing 2 to 4 white cells. Chest x-ray showing no acute findings. ASSESSMENT: 1. This is a 41-year-old gentleman with history of hypertension and seizures who comes in with opiate withdrawal. 2. Leukocytosis is improving. 3. We would like to rule out urinary tract infection. PLAN: 1. We will order urine cultures. 2. We will hold off on antibiotics for now. I would like to thank, Dr. Jeremiah Singh, for this consultation. Reyes Stone M.D. DR: RODOLFO JOB#: [id number] CC: Jeremiah Singh D.O.
--- NOTE | 2017-01-09 21:41 | Consultation ---
Consult Note Consult Note DATE OF CONSULTATION: 12/09/2016 HEMATOLOGY/ONCOLOGY CONSULTATION CONSULTING PHYSICIAN: Bin Abbott M.D. REQUESTING PHYSICIAN: Jeremiah Singh D.O. IDENTIFICATION DATA: Dear Dr. Singh, The patient is a pleasant 41-year-old male with a past medical history significant for morbid obesity and COPD, at this time presents to [facility] with chest pain, cough productive of sputum, seen by Pulmonary team. He also has a history of sarcoma, which has been diagnosed, rx in past with chemo and xrt. He had presented in the past on 08/27/2016 as well and in 12/08/16. 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 At this time, Hematology/Oncology service was consulted for further evaluation and treatment of his underlying disease. PAST MEDICAL HISTORY: Osteosarcoma, COPD, bronchitis, and diarrhea. PAST MEDICATIONS: Ceftriaxone in the ER and morphine sulfate. ALLERGIES: Keflex, peanut, aspirin, and ketorolac. SOCIAL HISTORY: He has used tobacco and drugs in the past. FAMILY HISTORY: Noncontributory. REVIEW OF SYSTEMS: A 12-point review of systems is otherwise negative. PHYSICAL EXAMINATION: VITAL SIGNS: Reviewed. GENERAL: No acute distress. PULMONARY: Decreased breath sounds. CARDIOVASCULAR: Regular rate. No S3 or S4. ABDOMEN: Soft, nontender, and nondistended. EXTREMITIES: There is 1+ edema. LABORATORY DATA: Labs, WBC 9.3, hemoglobin 16, hematocrit 49, pathology reviewed. IMAGING: On 12/03/2016, system. ASSESSMENT AND RECOMMENDATIONS: 1. Osteosarcoma,has been treated with chemo and xrt in the past ==> f/u with Dr. Jackson [facility] group for further treatment --> have referred to Dr. Rausch before 2. Anemia secondary to chronic disease. Continue to observe. 3. Leukocytosis, likely secondary to reactive process. 4. Elevated blood sugar. Continue to monitor. 5. Sepsis with an elevated lactate, better 6. Hepatitis C. 7. Morbid obesity. 8. Seizure disorder. I appreciate the evaluation. Bin Abbott Jan 09, 2017 21:41
--- NOTE | 2017-01-09 22:39 | General Progress Note ---
Assessment/Plan Assessment/Plan ASSESSMENT AND RECOMMENDATIONS: 1. Osteosarcoma,has been treated with chemo and xrt in the past ==> f/u with Dr. Jackson [facility] group for further treatment --> have referred to Dr. Rausch before 2. Anemia secondary to chronic disease. Continue to observe. 3. Leukocytosis, likely secondary to reactive process. 4. Elevated blood sugar. Continue to monitor. 5. Sepsis with an elevated lactate, better 6. Hepatitis C. 7. Morbid obesity. 8. Seizure disorder. Subjective Allergies: Coded Allergies: KETOROLAC (Verified Allergy, Severe, 08/06/16) ASPIRIN (Verified Allergy, Intermediate, 08/06/16) CEPHALEXIN (Verified Allergy, Mild, 12/13/14) FISH DERIVED (Unverified Allergy, Unknown, 08/29/16) PEANUT (Verified Allergy, Unknown, 11/19/15) Uncoded Allergies: fish (Allergy, Unknown, 08/12/16) All Systems: reviewed and negative except above Subjective resting Objective Last 24 Hour Vital Signs Date Time Temp Pulse Resp B/P (MAP) Pulse Ox O2 Delivery O2 Flow Rate FiO2 01/09/17 20:00 98.6 80 20 148/80 95 Room Air 01/09/17 18:18 98.1 01/09/17 11:52 78 01/09/17 09:37 125/82 01/09/17 09:36 82 125/82 01/09/17 09:30 98.1 82 20 125/82 95 Room Air 01/09/17 08:04 68 01/09/17 05:02 80 01/09/17 04:00 97.2 90 20 149/75 97 Room Air 01/09/17 01:35 78 01/09/17 00:00 98.2 95 20 114/63 97 Room Air Intake and Output 01/09/17 01/10/17 19:00 07:00 Intake Total 960 ml Balance 960 ml Intake Oral 960 ml # Voids 1 Laboratory Tests 01/09/17 07:20: White Blood Count 9.1, Red Blood Count 4.35L, Hemoglobin 13.7L, Hematocrit 40.1L , Mean Corpuscular Volume 92, Mean Corpuscular Hemoglobin 31.4H, Mean Corpuscular Hemoglobin Concent 34.1, Red Cell Distribution Width 12.9, Platelet Count 294, Mean Platelet Volume 6.3L, Neutrophils (%) (Auto) 49.2, Lymphocytes ( %) (Auto) 39.1, Monocytes (%) (Auto) 8.1, Eosinophils (%) (Auto) 2.7, Basophils (%) (Auto) 0.9, Erythrocyte Sedimentation Rate 5, Sodium Level 138, Potassium Level 3.5, Chloride Level 103, Carbon Dioxide Level 23, Anion Gap 13, Blood Urea Nitrogen 10, Creatinine 0.8, Estimat Glomerular Filtration Rate > 60, Glucose Level 181H, Calcium Level 8.4L, Phosphorus Level 4.7, Magnesium Level 1.9, Total Bilirubin 0.0L, Aspartate Amino Transf (AST/SGOT) 19, Alanine Aminotransferase (ALT/SGPT) 50, Alkaline Phosphatase 113, C-Reactive Protein, Quantitative 1.0H, Total Protein 5.9L, Albumin 3.0L, Globulin 2.9, Albumin/ Globulin Ratio 1.0, Thyroid Stimulating Hormone (TSH) 1.130 01/09/17 20:45: Urine Creatinine [Pending] Height (Feet): 5 Height (Inches): 10.00 Weight (Pounds): 325 General Appearance: no apparent distress EENT: normal ENT inspection Neck: normal alignment Cardiovascular: normal peripheral pulses Respiratory/Chest: chest wall non-tender Neurologic: windows administrator II-XII grossly normal Skin: warm/dry Bin Abbott Jan 09, 2017 22:39
[2017-01-10 00:04] VITALS: BP 123/68
[2017-01-10 04:00] VITALS: BP 121/69
[2017-01-10] MEDS: Phenytoin Susp 100mg/4ml ORAL SCH (08:51)
--- NOTE | 2017-01-10 08:51 | General Progress Note ---
Assessment/Plan Problem List: (1) COPD (chronic obstructive pulmonary disease) ICD Codes: J44.9 - Chronic obstructive pulmonary disease, unspecified SNOMED: 88481007 (2) PTSD (post-traumatic stress disorder) ICD Codes: F43.10 - Post-traumatic stress disorder, unspecified SNOMED: 89537384 (3) Chronic pain ICD Codes: G89.29 - Other chronic pain SNOMED: 05916653 (4) CVA (cerebral vascular accident) ICD Codes: I63.9 - Cerebral infarction, unspecified SNOMED: 973151242 (5) CHF (congestive heart failure) ICD Codes: I50.9 - Heart failure, unspecified SNOMED: 03365325 (6) UTI (urinary tract infection) ICD Codes: N39.0 - Urinary tract infection, site not specified SNOMED: 41075514 (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 - Malignant neoplasm of long bones of unspecified lower limb SNOMED: 817609988, 134043491 Status: stable, progressing, tolerating diet Assessment/Plan ot pt diet abx cbc bmp am dc plan snf Subjective Allergies: Coded Allergies: KETOROLAC (Verified Allergy, Severe, 08/06/16) ASPIRIN (Verified Allergy, Intermediate, 08/06/16) CEPHALEXIN (Verified Allergy, Mild, 12/13/14) FISH DERIVED (Unverified Allergy, Unknown, 08/29/16) PEANUT (Verified Allergy, Unknown, 11/19/15) Uncoded Allergies: fish (Allergy, Unknown, 08/12/16) All Systems: reviewed and negative except above Subjective sl gen pain Objective Last 24 Hour Vital Signs Date Time Temp Pulse Resp B/P (MAP) Pulse Ox O2 Delivery O2 Flow Rate FiO2 01/10/17 04:00 97.7 74 20 121/69 95 Room Air 01/10/17 00:04 98.2 87 20 123/68 95 Room Air 01/09/17 22:19 98.6 01/09/17 20:00 98.6 80 20 148/80 95 Room Air 01/09/17 11:52 78 01/09/17 09:37 125/82 01/09/17 09:36 82 125/82 01/09/17 09:30 98.1 82 20 125/82 95 Room Air Laboratory Tests 01/09/17 20:45: Urine Creatinine 209.1H Height (Feet): 5 Height (Inches): 10.00 Weight (Pounds): 325 General Appearance: lethargic EENT: normal ENT inspection Neck: normal alignment Cardiovascular: normal peripheral pulses, normal rate, regular rhythm Respiratory/Chest: chest wall non-tender, lungs clear, normal breath sounds Abdomen: normal bowel sounds, non tender, soft Extremities: normal inspection Edema: no edema noted Arm (L), no edema noted Arm (R), no edema noted Leg (L), no edema noted Leg (R), no edema noted Pedal (L), no edema noted Pedal (R), no edema noted Generalized Neurologic: responsive, motor weakness Skin: normal pigmentation, warm/dry MARQUEZ FOY Jan 10, 2017 08:51
[2017-01-10] MEDS: carBAMazepine 200mg tab ORAL SCH ×2 (08:52→21:48)
[2017-01-10] MEDS: Lisinopril 20mg tab ORAL SCH (08:53)
[2017-01-10] MEDS: Depakote ER 500mg tab ORAL SCH ×2 (08:54→21:44)
[2017-01-10] MEDS: Heparin 5000 units/ml inj SUBQ SCH ×2 (08:55→21:47)
[2017-01-10] MEDS: HYDROmorphone 1mg/ml Carpuject IVP PRN ×4 (08:57→21:39)
[2017-01-10 09:52] LABS: BASOPHILS % (AUTO) 0.7 % (0.0-2.0); EOSINOPHILS % (AUTO) 2.9 % (0.0-3.0); LYMPHOCYTES % (AUTO) 33.9 % (20.0-45.0); MEAN CORPUSCULAR HEMOGLOBIN 31.3 PG (27.0-31.0); MEAN CORPUSCULAR HGB CONC 33.8 G/DL (32.0-36.0); MEAN CORPUSCULAR VOLUME 93 FL (80-99); MEAN PLATELET VOLUME 6.6 FL (6.5-10.1); MONOCYTES % (AUTO) 8.8 % (1.0-10.0); NEUTROPHILS % (AUTO) 53.7 % (45.0-75.0); PLATELET COUNT 239 K/UL (150-450); RED BLOOD COUNT 4.11 M/UL (4.70-6.10); RED CELL DISTRIBUTION WIDTH 12.8 % (11.6-14.8); WHITE BLOOD COUNT 6.4 K/UL (4.8-10.8)
[2017-01-10 10:07] LABS: ANION GAP 9 mmol/L (5-15); CALCIUM 8.3 MG/DL (8.5-10.1); CARBON DIOXIDE 25 MMOL/L (21-32); CHLORIDE 106 MMOL/L (98-107); CREATININE 0.7 MG/DL (0.55-1.30); GLOMERULAR FILTRATION RATE > 60 mL/min (>60); POTASSIUM 3.8 MMOL/L (3.5-5.1); SODIUM 140 MMOL/L (136-145)
--- NOTE | 2017-01-10 10:24 | General Progress Note ---
Assessment/Plan Assessment/Plan (1) Osteosarcoma of femur (2) Morbid obesity (3) Chronic pain syndrome (4) Seizure disorder We will continued on Fentanyl patch, Oxycodone and Dilaudid. Pt was d/w Dr. Muhammad and he concurred. Subjective Date patient seen: Jan 10, 2017 Time patient seen: 09:30 - am Allergies: Coded Allergies: KETOROLAC (Verified Allergy, Severe, 08/06/16) ASPIRIN (Verified Allergy, Intermediate, 08/06/16) CEPHALEXIN (Verified Allergy, Mild, 12/13/14) FISH DERIVED (Unverified Allergy, Unknown, 08/29/16) PEANUT (Verified Allergy, Unknown, 11/19/15) Uncoded Allergies: fish (Allergy, Unknown, 08/12/16) Subjective REVIEW OF SYSTEMS: Denies rash, fever, chills, sweating, dizziness, drowsiness, blurred vision, sore throat, change in weight. No chest pain. He is complaining of low back and lower extremity pain. SUBJECTIVE: Patient is in bed no signs of pain or distress. The pain is worse with movement and tolerated on the medications. He has no new complaints. Objective Last 24 Hour Vital Signs Date Time Temp Pulse Resp B/P (MAP) Pulse Ox O2 Delivery O2 Flow Rate FiO2 01/10/17 08:53 121/70 01/10/17 08:53 67 121/70 01/10/17 04:00 97.7 74 20 121/69 95 Room Air 01/10/17 00:04 98.2 87 20 123/68 95 Room Air 01/09/17 22:19 98.6 01/09/17 20:00 98.6 80 20 148/80 95 Room Air 01/09/17 11:52 78 Laboratory Tests 01/09/17 20:45: Urine Creatinine 209.1H 01/10/17 08:47: White Blood Count 6.4, Red Blood Count 4.11L, Hemoglobin 12.9L, Hematocrit 38.2L , Mean Corpuscular Volume 93, Mean Corpuscular Hemoglobin 31.3H, Mean Corpuscular Hemoglobin Concent 33.8, Red Cell Distribution Width 12.8, Platelet Count 239, Mean Platelet Volume 6.6, Neutrophils (%) (Auto) 53.7, Lymphocytes (% ) (Auto) 33.9, Monocytes (%) (Auto) 8.8, Eosinophils (%) (Auto) 2.9, Basophils ( %) (Auto) 0.7, Sodium Level 140, Potassium Level 3.8, Chloride Level 106, Carbon Dioxide Level 25, Anion Gap 9, Blood Urea Nitrogen 6L, Creatinine 0.7, Estimat Glomerular Filtration Rate > 60, Glucose Level 133H, Calcium Level 8.3L Height (Feet): 5 Height (Inches): 10.00 Weight (Pounds): 325 Objective GENERAL: Alert and oriented x3. HEENT: PERRLA. NECK: Range of motion is full in all direction. No tenderness to paracervical muscles. No adenopathy. LUNGS: Decreased breath sounds bilaterally. HEART: Regular. ABDOMEN: Obese, tenderness to palpation BACK: Range of motion is decreased on flexion and extension with tenderness to paraspinal muscles. No tenderness to trapezius muscles. EXTREMITIES: No cyanosis, no clubbing, no edema. NEUROLOGICAL EXAM: Lower extremities range of motion is decreased due to patient's medical condition with motor being 4/5 in all muscles bilaterally. LIA HAGEN Jan 10, 2017 10:24
--- NOTE | 2017-01-10 10:31 | Pulmonology Progress Note ---
Assessment/Plan Problems: (1) ACS (acute coronary syndrome) (2) COPD (chronic obstructive pulmonary disease) (3) Chronic diarrhea (4) Psychiatric disorder (5) Morbid obesity Assessment/Plan symptomatic treatment pain control psych evaluation med/surg dc planning Subjective ROS Limited/Unobtainable: No Constitutional: Reports: no symptoms HEENT: Repors: no symptoms Respiratory: Reports: no symptoms Allergies: Coded Allergies: KETOROLAC (Verified Allergy, Severe, 08/06/16) ASPIRIN (Verified Allergy, Intermediate, 08/06/16) CEPHALEXIN (Verified Allergy, Mild, 12/13/14) FISH DERIVED (Unverified Allergy, Unknown, 08/29/16) PEANUT (Verified Allergy, Unknown, 11/19/15) Uncoded Allergies: fish (Allergy, Unknown, 08/12/16) Objective Last 24 Hour Vital Signs Date Time Temp Pulse Resp B/P (MAP) Pulse Ox O2 Delivery O2 Flow Rate FiO2 01/10/17 08:53 121/70 01/10/17 08:53 67 121/70 01/10/17 04:00 97.7 74 20 121/69 95 Room Air 01/10/17 00:04 98.2 87 20 123/68 95 Room Air 01/09/17 22:19 98.6 01/09/17 20:00 98.6 80 20 148/80 95 Room Air 01/09/17 11:52 78 General Appearance: WD/WN HEENT: normocephalic, atraumatic Respiratory/Chest: chest wall non-tender, lungs clear Cardiovascular: normal peripheral pulses, regular rhythm Abdomen: normal bowel sounds, soft, non tender Genitourinary: normal external genitalia Extremities: no cyanosis Skin: no lesions 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: help desk administrator II-XII grossly normal, no motor/sensory deficits Lymphatic: no neck adenopathy Microbiology Date/Time Source Procedure Growth Status 01/09/17 20:45 Urine,Clean Catch Urine Culture - Preliminary Resulted 01/08/17 03:17 Rectum VRE Culture - Final Enterococcus Faecalis - Vre Complete Laboratory Tests 01/09/17 20:45: Urine Creatinine 209.1H 01/10/17 08:47: White Blood Count 6.4, Red Blood Count 4.11L, Hemoglobin 12.9L, Hematocrit 38.2L , Mean Corpuscular Volume 93, Mean Corpuscular Hemoglobin 31.3H, Mean Corpuscular Hemoglobin Concent 33.8, Red Cell Distribution Width 12.8, Platelet Count 239, Mean Platelet Volume 6.6, Neutrophils (%) (Auto) 53.7, Lymphocytes (% ) (Auto) 33.9, Monocytes (%) (Auto) 8.8, Eosinophils (%) (Auto) 2.9, Basophils ( %) (Auto) 0.7, Sodium Level 140, Potassium Level 3.8, Chloride Level 106, Carbon Dioxide Level 25, Anion Gap 9, Blood Urea Nitrogen 6L, Creatinine 0.7, Estimat Glomerular Filtration Rate > 60, Glucose Level 133H, Calcium Level 8.3L Current Medications Medications (Trade) Dose Ordered Sig/Robert Route PRN Reason Start Time Stop Time Status Last Admin Dose Admin Acetaminophen (Tylenol) 650 mg Q4H PRN ORAL fever 01/08/17 06:00 02/07/17 05:59 Al Hydroxide/Mg Hydroxide (Mylanta II) 30 ml Q6H PRN ORAL dyspepsia 01/08/17 06:00 02/07/17 05:59 Amitriptyline HCl (Elavil) 25 mg BEDTIME ORAL 01/08/17 21:00 02/07/17 20:59 01/09/17 20:59 Amlodipine Besylate (Norvasc) 10 mg DAILY ORAL 01/08/17 09:00 02/07/17 08:59 01/10/17 08:53 Carbamazepine (TEGretol) 300 mg Q12HR ORAL 01/08/17 09:00 02/07/17 08:59 01/10/17 08:52 Dextrose (Dextrose 50%) STAT PRN IV Hypoglycemia 01/08/17 06:00 02/07/17 05:59 Divalproex Sodium (Depakote ER) 1,000 mg EVERY 12 HOURS ORAL 01/08/17 09:00 02/07/17 08:59 01/10/17 08:54 Fentanyl (Duragesic) 1 patch Q72H TDERMAL 01/10/17 18:00 01/17/17 17:59 Heparin Sodium (Porcine) (Heparin 5000 units/ml) 5,000 units EVERY 12 HOURS SUBQ 01/08/17 09:00 02/07/17 08:59 01/10/17 08:55 Hydromorphone HCl (Dilaudid) 1 mg Q4H PRN IVP severe pain 01/08/17 08:30 01/15/17 08:29 01/10/17 08:57 Lisinopril (Prinivil) 20 mg DAILY ORAL 01/08/17 09:00 02/07/17 08:59 01/10/17 08:53 Lorazepam (Ativan 2mg/ml 1ml) 0.5 mg Q4H PRN IV For Anxiety 01/08/17 06:00 01/15/17 05:59 Miscellaneous Medication (fentaNYL Destruction) 1 ea Q72H MISC 01/10/17 18:00 02/09/17 17:59 Naloxone HCl (Narcan) 0.1 mg PRN IV Sedation scale 3 or 4 01/08/17 08:30 Ondansetron HCl (Zofran) 4 mg Q6H PRN IVP Nausea & Vomiting 01/08/17 06:00 02/07/17 05:59 01/08/17 20:14 Oxycodone HCl (Roxicodone) 10 mg Q6H PRN ORAL moderate Breakthrough Pain 01/08/17 08:30 01/15/17 08:29 01/09/17 15:56 Phenytoin (Dilantin) 250 mg DAILY ORAL 01/08/17 09:00 02/07/17 08:59 01/10/17 08:51 Polyethylene Glycol (Miralax) 17 gm HSPRN PRN ORAL Constipation 01/08/17 06:00 02/07/17 05:59 Quetiapine Fumarate (SEROquel) 100 mg QHS ORAL 01/08/17 21:00 02/07/17 20:59 01/09/17 20:53 Trazodone HCl (Desyrel) 100 mg BEDTIME ORAL 01/08/17 21:00 02/07/17 20:59 01/09/17 20:53 Zolpidem Tartrate (Ambien) 5 mg HSPRN PRN ORAL Insomnia 01/08/17 06:00 01/15/17 05:59 LAUREN OCHOA Jan 10, 2017 10:31
[2017-01-10 11:37] VITALS: BP 132/77
--- NOTE | 2017-01-10 12:25 | Infectious Diseases Prog Note ---
Assessment/Plan Assessment/Plan A; VRE carrier ? UTI Opiate withdrawal Morbid obesity PTSD Chronic pain syndrome Osteosarcoma of femur P: Will f/u cultures Subjective ROS Limited/Unobtainable: Yes Allergies: Coded Allergies: KETOROLAC (Verified Allergy, Severe, 08/06/16) ASPIRIN (Verified Allergy, Intermediate, 08/06/16) CEPHALEXIN (Verified Allergy, Mild, 12/13/14) FISH DERIVED (Unverified Allergy, Unknown, 08/29/16) PEANUT (Verified Allergy, Unknown, 11/19/15) Uncoded Allergies: fish (Allergy, Unknown, 08/12/16) Objective Vital Signs Last 24 Hour Vital Signs Date Time Temp Pulse Resp B/P (MAP) Pulse Ox O2 Delivery O2 Flow Rate FiO2 01/10/17 11:37 97.9 79 20 132/77 100 Room Air 01/10/17 08:53 121/70 01/10/17 08:53 67 121/70 01/10/17 04:00 97.7 74 20 121/69 95 Room Air 01/10/17 00:04 98.2 87 20 123/68 95 Room Air 01/09/17 22:19 98.6 01/09/17 20:00 98.6 80 20 148/80 95 Room Air Height (Feet): 5 Height (Inches): 10.00 Weight (Pounds): 325 General Appearance: no acute distress, other - obese Respiratory/Chest: lungs clear Cardiovascular: normal rate Abdomen: soft, non tender Extremities: no edema 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: other - sleeping Microbiology Date/Time Source Procedure Growth Status 01/09/17 20:45 Urine,Clean Catch Urine Culture - Preliminary Resulted 01/08/17 03:17 Rectum VRE Culture - Final Enterococcus Faecalis - Vre Complete Laboratory Tests Test 01/09/17 20:45 01/10/17 08:47 Urine Creatinine 209.1 MG/DL (30.0-125.0) H White Blood Count 6.4 K/UL (4.8-10.8) Red Blood Count 4.11 M/UL (4.70-6.10) L Hemoglobin 12.9 G/DL (14.2-18.0) L Hematocrit 38.2 % (42.0-52.0) L Mean Corpuscular Volume 93 FL (80-99) Mean Corpuscular Hemoglobin 31.3 PG (27.0-31.0) H Mean Corpuscular Hemoglobin Concent 33.8 G/DL (32.0-36.0) Red Cell Distribution Width 12.8 % (11.6-14.8) Platelet Count 239 K/UL (150-450) Mean Platelet Volume 6.6 FL (6.5-10.1) Neutrophils (%) (Auto) 53.7 % (45.0-75.0) Lymphocytes (%) (Auto) 33.9 % (20.0-45.0) Monocytes (%) (Auto) 8.8 % (1.0-10.0) Eosinophils (%) (Auto) 2.9 % (0.0-3.0) Basophils (%) (Auto) 0.7 % (0.0-2.0) Sodium Level 140 MMOL/L (136-145) Potassium Level 3.8 MMOL/L (3.5-5.1) Chloride Level 106 MMOL/L (98-107) Carbon Dioxide Level 25 MMOL/L (21-32) Anion Gap 9 mmol/L (5-15) Blood Urea Nitrogen 6 mg/dL (7-18) L Creatinine 0.7 MG/DL (0.55-1.30) Estimat Glomerular Filtration Rate > 60 mL/min (>60) Glucose Level 133 MG/DL (74-106) H Calcium Level 8.3 MG/DL (8.5-10.1) L Current Medications Medications (Trade) Dose Ordered Sig/Robert Route PRN Reason Start Time Stop Time Status Last Admin Dose Admin Acetaminophen (Tylenol) 650 mg Q4H PRN ORAL fever 01/08/17 06:00 02/07/17 05:59 Al Hydroxide/Mg Hydroxide (Mylanta II) 30 ml Q6H PRN ORAL dyspepsia 01/08/17 06:00 02/07/17 05:59 Amitriptyline HCl (Elavil) 25 mg BEDTIME ORAL 01/08/17 21:00 02/07/17 20:59 01/09/17 20:59 Amlodipine Besylate (Norvasc) 10 mg DAILY ORAL 01/08/17 09:00 02/07/17 08:59 01/10/17 08:53 Carbamazepine (TEGretol) 300 mg Q12HR ORAL 01/08/17 09:00 02/07/17 08:59 01/10/17 08:52 Dextrose (Dextrose 50%) STAT PRN IV Hypoglycemia 01/08/17 06:00 02/07/17 05:59 Divalproex Sodium (Depakote ER) 1,000 mg EVERY 12 HOURS ORAL 01/08/17 09:00 02/07/17 08:59 01/10/17 08:54 Fentanyl (Duragesic) 1 patch Q72H TDERMAL 01/10/17 18:00 01/17/17 17:59 Heparin Sodium (Porcine) (Heparin 5000 units/ml) 5,000 units EVERY 12 HOURS SUBQ 01/08/17 09:00 02/07/17 08:59 01/10/17 08:55 Hydromorphone HCl (Dilaudid) 1 mg Q4H PRN IVP severe pain 01/08/17 08:30 01/15/17 08:29 01/10/17 08:57 Lisinopril (Prinivil) 20 mg DAILY ORAL 01/08/17 09:00 02/07/17 08:59 01/10/17 08:53 Lorazepam (Ativan 2mg/ml 1ml) 0.5 mg Q4H PRN IV For Anxiety 01/08/17 06:00 01/15/17 05:59 Miscellaneous Medication (fentaNYL Destruction) 1 ea Q72H MISC 01/10/17 18:00 02/09/17 17:59 Naloxone HCl (Narcan) 0.1 mg PRN IV Sedation scale 3 or 4 01/08/17 08:30 Ondansetron HCl (Zofran) 4 mg Q6H PRN IVP Nausea & Vomiting 01/08/17 06:00 02/07/17 05:59 01/08/17 20:14 Oxycodone HCl (Roxicodone) 10 mg Q6H PRN ORAL moderate Breakthrough Pain 01/08/17 08:30 01/15/17 08:29 01/09/17 15:56 Phenytoin (Dilantin) 250 mg DAILY ORAL 01/08/17 09:00 02/07/17 08:59 01/10/17 08:51 Polyethylene Glycol (Miralax) 17 gm HSPRN PRN ORAL Constipation 01/08/17 06:00 02/07/17 05:59 Quetiapine Fumarate (SEROquel) 100 mg QHS ORAL 01/08/17 21:00 02/07/17 20:59 01/09/17 20:53 Trazodone HCl (Desyrel) 100 mg BEDTIME ORAL 01/08/17 21:00 02/07/17 20:59 01/09/17 20:53 Zolpidem Tartrate (Ambien) 5 mg HSPRN PRN ORAL Insomnia 01/08/17 06:00 01/15/17 05:59 DAREK SANCHEZ Jan 10, 2017 12:25
--- NOTE | 2017-01-10 13:52 | Nephrology Progress Note ---
Assessment/Plan Assessment 1. Proteinuria. 2. Hematuria. 3. Morbid obesity. 4. Diabetes. 5. Hypertension. Plan plan to continue current monitoring renal function avoid NSAID replace electrolyte as need it repeat u/a Subjective Constitutional: Reports: no symptoms HEENT: Reports: no symptoms 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: Reports: no symptoms Subjective alert and awake Objective Objective Last 24 Hour Vital Signs Date Time Temp Pulse Resp B/P (MAP) Pulse Ox O2 Delivery O2 Flow Rate FiO2 01/10/17 11:37 97.9 79 20 132/77 100 Room Air 01/10/17 08:53 121/70 01/10/17 08:53 67 121/70 01/10/17 04:00 97.7 74 20 121/69 95 Room Air 01/10/17 00:04 98.2 87 20 123/68 95 Room Air 01/09/17 22:19 98.6 01/09/17 20:00 98.6 80 20 148/80 95 Room Air Laboratory Tests 01/09/17 20:45: Urine Creatinine 209.1H 01/10/17 08:47: White Blood Count 6.4, Red Blood Count 4.11L, Hemoglobin 12.9L, Hematocrit 38.2L , Mean Corpuscular Volume 93, Mean Corpuscular Hemoglobin 31.3H, Mean Corpuscular Hemoglobin Concent 33.8, Red Cell Distribution Width 12.8, Platelet Count 239, Mean Platelet Volume 6.6, Neutrophils (%) (Auto) 53.7, Lymphocytes (% ) (Auto) 33.9, Monocytes (%) (Auto) 8.8, Eosinophils (%) (Auto) 2.9, Basophils ( %) (Auto) 0.7, Sodium Level 140, Potassium Level 3.8, Chloride Level 106, Carbon Dioxide Level 25, Anion Gap 9, Blood Urea Nitrogen 6L, Creatinine 0.7, Estimat Glomerular Filtration Rate > 60, Glucose Level 133H, Calcium Level 8.3L Height (Feet): 5 Height (Inches): 10.00 Weight (Pounds): 325 Objective HEAD AND NECK: No JVP. No LAD. No thyromegaly. Extraocular movement intact. Pupils are reactive to light and accommodation. LUNGS: Decreased breathing sound of the lower lung. GASTROINTESTINAL: Abdomen is soft, nontender, and nondistended. EXTREMITIES: No edema. No clubbing. No cyanosis. BAHMANI,MARIANA Jan 10, 2017 13:52
[2017-01-10 15:52] VITALS: BP 128/76
[2017-01-10] MEDS ORDERED: fentaNYL Destruction MISC SCH (18:00)
[2017-01-10 20:31] VITALS: BP 140/70
[2017-01-10] MEDS: TraZODone 100mg tab ORAL SCH (21:46)
--- NOTE | 2017-01-10 21:54 | General Progress Note ---
Assessment/Plan Assessment/Plan ASSESSMENT AND RECOMMENDATIONS: 1. Osteosarcoma,has been treated with chemo and xrt in the past ==> f/u with Dr. Jackson [facility] for further treatment --> have referred to Dr. Rausch before 2. Anemia secondary to chronic disease. Continue to observe. 3. Leukocytosis, likely secondary to reactive process. WBC count has normalized 4. Elevated blood sugar. Continue to monitor. 5. Sepsis with an elevated lactate, better 6. Hepatitis C. 7. Morbid obesity. 8. Seizure disorder. Subjective ROS Limited/Unobtainable: Yes Allergies: Coded Allergies: KETOROLAC (Verified Allergy, Severe, 08/06/16) ASPIRIN (Verified Allergy, Intermediate, 08/06/16) CEPHALEXIN (Verified Allergy, Mild, 12/13/14) FISH DERIVED (Unverified Allergy, Unknown, 08/29/16) PEANUT (Verified Allergy, Unknown, 11/19/15) Uncoded Allergies: fish (Allergy, Unknown, 08/12/16) Subjective no events overnight, no fevers, no overt bleeding Objective Last 24 Hour Vital Signs Date Time Temp Pulse Resp B/P (MAP) Pulse Ox O2 Delivery O2 Flow Rate FiO2 01/10/17 20:31 98.7 87 18 140/70 98 Room Air 01/10/17 15:52 96.8 85 20 128/76 97 Room Air 01/10/17 11:37 97.9 79 20 132/77 100 Room Air 01/10/17 08:53 121/70 01/10/17 08:53 67 121/70 01/10/17 04:00 97.7 74 20 121/69 95 Room Air 01/10/17 00:04 98.2 87 20 123/68 95 Room Air 01/09/17 22:19 98.6 Intake and Output 01/10/17 01/11/17 19:00 07:00 Intake Total 220 ml Balance 220 ml Intake Oral 220 ml Laboratory Tests 01/10/17 08:47: White Blood Count 6.4, Red Blood Count 4.11L, Hemoglobin 12.9L, Hematocrit 38.2L , Mean Corpuscular Volume 93, Mean Corpuscular Hemoglobin 31.3H, Mean Corpuscular Hemoglobin Concent 33.8, Red Cell Distribution Width 12.8, Platelet Count 239, Mean Platelet Volume 6.6, Neutrophils (%) (Auto) 53.7, Lymphocytes (% ) (Auto) 33.9, Monocytes (%) (Auto) 8.8, Eosinophils (%) (Auto) 2.9, Basophils ( %) (Auto) 0.7, Sodium Level 140, Potassium Level 3.8, Chloride Level 106, Carbon Dioxide Level 25, Anion Gap 9, Blood Urea Nitrogen 6L, Creatinine 0.7, Estimat Glomerular Filtration Rate > 60, Glucose Level 133H, Calcium Level 8.3L Height (Feet): 5 Height (Inches): 10.00 Weight (Pounds): 325 General Appearance: no apparent distress EENT: normal ENT inspection Neck: abnormal alignment Respiratory/Chest: chest wall non-tender Abdomen: normal bowel sounds Extremities: normal range of motion Bin Abbott Jan 10, 2017 21:54
[2017-01-11 00:59] VITALS: BP 113/67
[2017-01-11] MEDS: HYDROmorphone 1mg/ml Carpuject IVP PRN ×6 (01:44→22:00)
[2017-01-11] MEDS: oxyCODONE 5mg IR tab ORAL PRN (03:04)
[2017-01-11 04:00] VITALS: BP 115/66
[2017-01-11 08:05] LABS: BASOPHILS % (AUTO) 0.7 % (0.0-2.0); EOSINOPHILS % (AUTO) 2.4 % (0.0-3.0); LYMPHOCYTES % (AUTO) 34.2 % (20.0-45.0); MEAN CORPUSCULAR HEMOGLOBIN 31.8 PG (27.0-31.0); MEAN CORPUSCULAR HGB CONC 33.8 G/DL (32.0-36.0); MEAN CORPUSCULAR VOLUME 94 FL (80-99); MEAN PLATELET VOLUME 6.5 FL (6.5-10.1); MONOCYTES % (AUTO) 7.8 % (1.0-10.0); NEUTROPHILS % (AUTO) 54.9 % (45.0-75.0); PLATELET COUNT 299 K/UL (150-450); RED BLOOD COUNT 4.61 M/UL (4.70-6.10); RED CELL DISTRIBUTION WIDTH 12.7 % (11.6-14.8); WHITE BLOOD COUNT 8.1 K/UL (4.8-10.8)
--- NOTE | 2017-01-11 08:05 | General Progress Note ---
Assessment/Plan Assessment/Plan (1) Osteosarcoma of femur (2) Morbid obesity (3) Chronic pain syndrome (4) Seizure disorder We will continued on Fentanyl patch, Oxycodone and Dilaudid. Pt was d/w Dr. Muhammad and he concurred. Subjective Date patient seen: Jan 11, 2017 Time patient seen: 07:30 - am Allergies: Coded Allergies: KETOROLAC (Verified Allergy, Severe, 08/06/16) ASPIRIN (Verified Allergy, Intermediate, 08/06/16) CEPHALEXIN (Verified Allergy, Mild, 12/13/14) FISH DERIVED (Unverified Allergy, Unknown, 08/29/16) PEANUT (Verified Allergy, Unknown, 11/19/15) Uncoded Allergies: fish (Allergy, Unknown, 08/12/16) Subjective REVIEW OF SYSTEMS: Denies rash, fever, chills, sweating, dizziness, drowsiness, blurred vision, sore throat, change in weight. No chest pain. He is complaining of low back and lower extremity pain. SUBJECTIVE: He continues to c/o pain which is worse with movement and tolerated on the fentanyl, Dilaudid and Oxycodone. Pt has no new complaints. Objective Last 24 Hour Vital Signs Date Time Temp Pulse Resp B/P (MAP) Pulse Ox O2 Delivery O2 Flow Rate FiO2 01/11/17 04:00 97.9 78 20 115/66 97 Room Air 01/11/17 00:59 98.4 87 20 113/67 94 Room Air 01/10/17 20:31 98.7 87 18 140/70 98 Room Air 01/10/17 15:52 96.8 85 20 128/76 97 Room Air 01/10/17 11:37 97.9 79 20 132/77 100 Room Air 01/10/17 08:53 121/70 01/10/17 08:53 67 121/70 Laboratory Tests 01/10/17 08:47: White Blood Count 6.4, Red Blood Count 4.11L, Hemoglobin 12.9L, Hematocrit 38.2L , Mean Corpuscular Volume 93, Mean Corpuscular Hemoglobin 31.3H, Mean Corpuscular Hemoglobin Concent 33.8, Red Cell Distribution Width 12.8, Platelet Count 239, Mean Platelet Volume 6.6, Neutrophils (%) (Auto) 53.7, Lymphocytes (% ) (Auto) 33.9, Monocytes (%) (Auto) 8.8, Eosinophils (%) (Auto) 2.9, Basophils ( %) (Auto) 0.7, Sodium Level 140, Potassium Level 3.8, Chloride Level 106, Carbon Dioxide Level 25, Anion Gap 9, Blood Urea Nitrogen 6L, Creatinine 0.7, Estimat Glomerular Filtration Rate > 60, Glucose Level 133H, Calcium Level 8.3L 01/11/17 07:35: White Blood Count [Pending], Red Blood Count [Pending], Hemoglobin [Pending], Hematocrit [Pending], Mean Corpuscular Volume [Pending], Mean Corpuscular Hemoglobin [Pending], Mean Corpuscular Hemoglobin Concent [Pending], Red Cell Distribution Width [Pending], Platelet Count [Pending], Mean Platelet Volume [ Pending], Neutrophils (%) (Auto) [Pending], Lymphocytes (%) (Auto) [Pending], Monocytes (%) (Auto) [Pending], Eosinophils (%) (Auto) [Pending], Basophils (%) (Auto) [Pending], Sodium Level [Pending], Potassium Level [Pending], Chloride Level [Pending], Carbon Dioxide Level [Pending], Blood Urea Nitrogen [Pending], Creatinine [Pending], Estimat Glomerular Filtration Rate [Pending], Glucose Level [Pending], Calcium Level [Pending] Height (Feet): 5 Height (Inches): 10.00 Weight (Pounds): 325 Objective GENERAL: Alert and oriented x3. HEENT: PERRLA. NECK: Range of motion is full in all direction. No tenderness to paracervical muscles. No adenopathy. LUNGS: Decreased breath sounds bilaterally. HEART: Regular. ABDOMEN: Obese, tenderness to palpation BACK: Range of motion is decreased on flexion and extension with tenderness to paraspinal muscles. No tenderness to trapezius muscles. EXTREMITIES: No cyanosis, no clubbing, no edema. NEUROLOGICAL EXAM: Lower extremities range of motion is decreased due to patient's medical condition with motor being 4/5 in all muscles bilaterally. LIA HAGEN Jan 11, 2017 08:05
--- NOTE | 2017-01-11 08:05 | Nephrology Progress Note ---
Assessment/Plan Assessment 1. Proteinuria. 2. Hematuria. 3. Morbid obesity. 4. Diabetes. 5. Hypertension. Plan plan to continue current monitoring renal function avoid NSAID replace electrolyte as need it repeat u/a Subjective Subjective alert and awake Objective Objective Last 24 Hour Vital Signs Date Time Temp Pulse Resp B/P (MAP) Pulse Ox O2 Delivery O2 Flow Rate FiO2 01/11/17 04:00 97.9 78 20 115/66 97 Room Air 01/11/17 00:59 98.4 87 20 113/67 94 Room Air 01/10/17 20:31 98.7 87 18 140/70 98 Room Air 01/10/17 15:52 96.8 85 20 128/76 97 Room Air 01/10/17 11:37 97.9 79 20 132/77 100 Room Air 01/10/17 08:53 121/70 01/10/17 08:53 67 121/70 Laboratory Tests 01/10/17 08:47: White Blood Count 6.4, Red Blood Count 4.11L, Hemoglobin 12.9L, Hematocrit 38.2L , Mean Corpuscular Volume 93, Mean Corpuscular Hemoglobin 31.3H, Mean Corpuscular Hemoglobin Concent 33.8, Red Cell Distribution Width 12.8, Platelet Count 239, Mean Platelet Volume 6.6, Neutrophils (%) (Auto) 53.7, Lymphocytes (% ) (Auto) 33.9, Monocytes (%) (Auto) 8.8, Eosinophils (%) (Auto) 2.9, Basophils ( %) (Auto) 0.7, Sodium Level 140, Potassium Level 3.8, Chloride Level 106, Carbon Dioxide Level 25, Anion Gap 9, Blood Urea Nitrogen 6L, Creatinine 0.7, Estimat Glomerular Filtration Rate > 60, Glucose Level 133H, Calcium Level 8.3L 01/11/17 07:35: White Blood Count [Pending], Red Blood Count [Pending], Hemoglobin [Pending], Hematocrit [Pending], Mean Corpuscular Volume [Pending], Mean Corpuscular Hemoglobin [Pending], Mean Corpuscular Hemoglobin Concent [Pending], Red Cell Distribution Width [Pending], Platelet Count [Pending], Mean Platelet Volume [ Pending], Neutrophils (%) (Auto) [Pending], Lymphocytes (%) (Auto) [Pending], Monocytes (%) (Auto) [Pending], Eosinophils (%) (Auto) [Pending], Basophils (%) (Auto) [Pending], Sodium Level [Pending], Potassium Level [Pending], Chloride Level [Pending], Carbon Dioxide Level [Pending], Blood Urea Nitrogen [Pending], Creatinine [Pending], Estimat Glomerular Filtration Rate [Pending], Glucose Level [Pending], Calcium Level [Pending] Height (Feet): 5 Height (Inches): 10.00 Weight (Pounds): 325 Objective HEAD AND NECK: No JVP. No LAD. No thyromegaly. Extraocular movement intact. Pupils are reactive to light and accommodation. LUNGS: Decreased breathing sound of the lower lung. GASTROINTESTINAL: Abdomen is soft, nontender, and nondistended. EXTREMITIES: No edema. No clubbing. No cyanosis. MARIANA LUND Jan 11, 2017 08:05
[2017-01-11] MEDS: Lisinopril 20mg tab ORAL SCH (08:17)
[2017-01-11 08:18] LABS: ANION GAP 10 mmol/L (5-15); CALCIUM 8.9 MG/DL (8.5-10.1); CARBON DIOXIDE 25 MMOL/L (21-32); CHLORIDE 103 MMOL/L (98-107); CREATININE 0.7 MG/DL (0.55-1.30); GLOMERULAR FILTRATION RATE > 60 mL/min (>60); POTASSIUM 3.8 MMOL/L (3.5-5.1); SODIUM 138 MMOL/L (136-145)
[2017-01-11] MEDS: Phenytoin Susp 100mg/4ml ORAL SCH (08:18)
[2017-01-11] MEDS: carBAMazepine 200mg tab ORAL SCH ×2 (08:18→21:24)
[2017-01-11] MEDS: Depakote ER 500mg tab ORAL SCH ×2 (08:19→21:23)
[2017-01-11] MEDS: Heparin 5000 units/ml inj SUBQ SCH ×2 (08:21→21:25)
[2017-01-11 08:38] VITALS: BP 157/90
--- NOTE | 2017-01-11 10:49 | Infectious Diseases Prog Note ---
Assessment/Plan Assessment/Plan A; VRE carrier Dysuria Opiate withdrawal Morbid obesity PTSD Chronic pain syndrome Osteosarcoma of femur Hepatitis C history P: observe off antibiotic Subjective ROS Limited/Unobtainable: No Constitutional: Reports: no symptoms Respiratory: Reports: dry cough Genitourinary: Reports: dysuria Musculoskeletal: Reports: pain, other - in right leg Allergies: Coded Allergies: KETOROLAC (Verified Allergy, Severe, 08/06/16) ASPIRIN (Verified Allergy, Intermediate, 08/06/16) CEPHALEXIN (Verified Allergy, Mild, 12/13/14) FISH DERIVED (Unverified Allergy, Unknown, 08/29/16) PEANUT (Verified Allergy, Unknown, 11/19/15) Uncoded Allergies: fish (Allergy, Unknown, 08/12/16) Objective Vital Signs Last 24 Hour Vital Signs Date Time Temp Pulse Resp B/P (MAP) Pulse Ox O2 Delivery O2 Flow Rate FiO2 01/11/17 08:38 99.1 100 18 157/90 Room Air 01/11/17 08:17 157/90 01/11/17 08:17 100 157/90 01/11/17 04:00 97.9 78 20 115/66 97 Room Air 01/11/17 00:59 98.4 87 20 113/67 94 Room Air 01/10/17 20:31 98.7 87 18 140/70 98 Room Air 01/10/17 15:52 96.8 85 20 128/76 97 Room Air 01/10/17 11:37 97.9 79 20 132/77 100 Room Air Height (Feet): 5 Height (Inches): 10.00 Weight (Pounds): 325 General Appearance: no acute distress, other - obese HEENT: mucous membranes moist Respiratory/Chest: lungs clear Cardiovascular: tachycardia Abdomen: soft, non tender Extremities: other - tenderness in right leg 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: alert, oriented x 3, responsive Microbiology Date/Time Source Procedure Growth Status 01/09/17 20:45 Urine,Clean Catch Urine Culture - Preliminary Mixed Gram Positive Organism Resulted Laboratory Tests Test 01/11/17 07:35 White Blood Count 8.1 K/UL (4.8-10.8) Red Blood Count 4.61 M/UL (4.70-6.10) L Hemoglobin 14.6 G/DL (14.2-18.0) Hematocrit 43.3 % (42.0-52.0) Mean Corpuscular Volume 94 FL (80-99) Mean Corpuscular Hemoglobin 31.8 PG (27.0-31.0) H Mean Corpuscular Hemoglobin Concent 33.8 G/DL (32.0-36.0) Red Cell Distribution Width 12.7 % (11.6-14.8) Platelet Count 299 K/UL (150-450) Mean Platelet Volume 6.5 FL (6.5-10.1) Neutrophils (%) (Auto) 54.9 % (45.0-75.0) Lymphocytes (%) (Auto) 34.2 % (20.0-45.0) Monocytes (%) (Auto) 7.8 % (1.0-10.0) Eosinophils (%) (Auto) 2.4 % (0.0-3.0) Basophils (%) (Auto) 0.7 % (0.0-2.0) Sodium Level 138 MMOL/L (136-145) Potassium Level 3.8 MMOL/L (3.5-5.1) Chloride Level 103 MMOL/L (98-107) Carbon Dioxide Level 25 MMOL/L (21-32) Anion Gap 10 mmol/L (5-15) Blood Urea Nitrogen 6 mg/dL (7-18) L Creatinine 0.7 MG/DL (0.55-1.30) Estimat Glomerular Filtration Rate > 60 mL/min (>60) Glucose Level 139 MG/DL (74-106) H Calcium Level 8.9 MG/DL (8.5-10.1) Current Medications Medications (Trade) Dose Ordered Sig/Robert Route PRN Reason Start Time Stop Time Status Last Admin Dose Admin Acetaminophen (Tylenol) 650 mg Q4H PRN ORAL fever 01/08/17 06:00 02/07/17 05:59 Al Hydroxide/Mg Hydroxide (Mylanta II) 30 ml Q6H PRN ORAL dyspepsia 01/08/17 06:00 02/07/17 05:59 Amitriptyline HCl (Elavil) 25 mg BEDTIME ORAL 01/08/17 21:00 02/07/17 20:59 01/10/17 21:46 Amlodipine Besylate (Norvasc) 10 mg DAILY ORAL 01/08/17 09:00 02/07/17 08:59 01/11/17 08:17 Carbamazepine (TEGretol) 300 mg Q12HR ORAL 01/08/17 09:00 02/07/17 08:59 01/11/17 08:18 Dextrose (Dextrose 50%) STAT PRN IV Hypoglycemia 01/08/17 06:00 02/07/17 05:59 Divalproex Sodium (Depakote ER) 1,000 mg EVERY 12 HOURS ORAL 01/08/17 09:00 02/07/17 08:59 01/11/17 08:19 Fentanyl (Duragesic) 1 patch Q72H TDERMAL 01/10/17 18:00 01/17/17 17:59 01/10/17 17:39 Heparin Sodium (Porcine) (Heparin 5000 units/ml) 5,000 units EVERY 12 HOURS SUBQ 01/08/17 09:00 02/07/17 08:59 01/11/17 08:21 Hydromorphone HCl (Dilaudid) 1 mg Q4H PRN IVP severe pain 01/08/17 08:30 01/15/17 08:29 01/11/17 09:56 Lisinopril (Prinivil) 20 mg DAILY ORAL 01/08/17 09:00 02/07/17 08:59 01/11/17 08:17 Lorazepam (Ativan 2mg/ml 1ml) 0.5 mg Q4H PRN IV For Anxiety 01/08/17 06:00 01/15/17 05:59 Miscellaneous Medication (fentaNYL Destruction) 1 ea Q72H MISC 01/10/17 18:00 02/09/17 17:59 01/10/17 17:36 Naloxone HCl (Narcan) 0.1 mg PRN IV Sedation scale 3 or 4 01/08/17 08:30 Ondansetron HCl (Zofran) 4 mg Q6H PRN IVP Nausea & Vomiting 01/08/17 06:00 02/07/17 05:59 01/11/17 08:43 Oxycodone HCl (Roxicodone) 10 mg Q6H PRN ORAL moderate Breakthrough Pain 01/08/17 08:30 01/15/17 08:29 01/11/17 03:04 Phenytoin (Dilantin) 250 mg DAILY ORAL 01/08/17 09:00 02/07/17 08:59 01/11/17 08:18 Polyethylene Glycol (Miralax) 17 gm HSPRN PRN ORAL Constipation 01/08/17 06:00 02/07/17 05:59 Quetiapine Fumarate (SEROquel) 100 mg QHS ORAL 01/08/17 21:00 02/07/17 20:59 01/10/17 21:45 Trazodone HCl (Desyrel) 100 mg BEDTIME ORAL 01/08/17 21:00 02/07/17 20:59 01/10/17 21:46 Zolpidem Tartrate (Ambien) 5 mg HSPRN PRN ORAL Insomnia 01/08/17 06:00 01/15/17 05:59 DAREK SANCHEZ Jan 11, 2017 10:49
--- NOTE | 2017-01-11 11:39 | Pulmonology Progress Note ---
Assessment/Plan Problems: (1) ACS (acute coronary syndrome) (2) COPD (chronic obstructive pulmonary disease) (3) Chronic diarrhea (4) Psychiatric disorder (5) Morbid obesity Assessment/Plan no new complains pt is sad b/o passing of her step-mother symptomatic treatment pain control psych evaluation med/surg dc planning Subjective ROS Limited/Unobtainable: No Constitutional: Reports: no symptoms HEENT: Repors: no symptoms Respiratory: Reports: no symptoms Cardiovascular: Reports: no symptoms Gastrointestinal/Abdominal: Reports: no symptoms Genitourinary: Reports: no symptoms Allergies: Coded Allergies: KETOROLAC (Verified Allergy, Severe, 08/06/16) ASPIRIN (Verified Allergy, Intermediate, 08/06/16) CEPHALEXIN (Verified Allergy, Mild, 12/13/14) FISH DERIVED (Unverified Allergy, Unknown, 08/29/16) PEANUT (Verified Allergy, Unknown, 11/19/15) Uncoded Allergies: fish (Allergy, Unknown, 08/12/16) Objective Last 24 Hour Vital Signs Date Time Temp Pulse Resp B/P (MAP) Pulse Ox O2 Delivery O2 Flow Rate FiO2 01/11/17 08:38 99.1 100 18 157/90 Room Air 01/11/17 08:17 157/90 01/11/17 08:17 100 157/90 01/11/17 04:00 97.9 78 20 115/66 97 Room Air 01/11/17 00:59 98.4 87 20 113/67 94 Room Air 01/10/17 20:31 98.7 87 18 140/70 98 Room Air 01/10/17 15:52 96.8 85 20 128/76 97 Room Air General Appearance: WD/WN Respiratory/Chest: chest wall non-tender, lungs clear Cardiovascular: normal peripheral pulses, normal rate Abdomen: normal bowel sounds, no organomegaly Genitourinary: normal external genitalia Extremities: no cyanosis Skin: no lesions 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: rn advice II-XII grossly normal Lymphatic: no groin adenopathy Microbiology Date/Time Source Procedure Growth Status 01/09/17 20:45 Urine,Clean Catch Urine Culture - Preliminary Mixed Gram Positive Organism Resulted Laboratory Tests 01/11/17 07:35: White Blood Count 8.1, Red Blood Count 4.61L, Hemoglobin 14.6, Hematocrit 43.3, Mean Corpuscular Volume 94, Mean Corpuscular Hemoglobin 31.8H, Mean Corpuscular Hemoglobin Concent 33.8, Red Cell Distribution Width 12.7, Platelet Count 299, Mean Platelet Volume 6.5, Neutrophils (%) (Auto) 54.9, Lymphocytes (%) (Auto) 34.2, Monocytes (%) (Auto) 7.8, Eosinophils (%) (Auto) 2.4, Basophils (%) (Auto ) 0.7, Sodium Level 138, Potassium Level 3.8, Chloride Level 103, Carbon Dioxide Level 25, Anion Gap 10, Blood Urea Nitrogen 6L, Creatinine 0.7, Estimat Glomerular Filtration Rate > 60, Glucose Level 139H, Calcium Level 8.9 Current Medications Medications (Trade) Dose Ordered Sig/Robert Route PRN Reason Start Time Stop Time Status Last Admin Dose Admin Acetaminophen (Tylenol) 650 mg Q4H PRN ORAL fever 01/08/17 06:00 02/07/17 05:59 Al Hydroxide/Mg Hydroxide (Mylanta II) 30 ml Q6H PRN ORAL dyspepsia 01/08/17 06:00 02/07/17 05:59 Amitriptyline HCl (Elavil) 25 mg BEDTIME ORAL 01/08/17 21:00 02/07/17 20:59 01/10/17 21:46 Amlodipine Besylate (Norvasc) 10 mg DAILY ORAL 01/08/17 09:00 02/07/17 08:59 01/11/17 08:17 Carbamazepine (TEGretol) 300 mg Q12HR ORAL 01/08/17 09:00 02/07/17 08:59 01/11/17 08:18 Dextrose (Dextrose 50%) STAT PRN IV Hypoglycemia 01/08/17 06:00 02/07/17 05:59 Divalproex Sodium (Depakote ER) 1,000 mg EVERY 12 HOURS ORAL 01/08/17 09:00 02/07/17 08:59 01/11/17 08:19 Fentanyl (Duragesic) 1 patch Q72H TDERMAL 01/10/17 18:00 01/17/17 17:59 01/10/17 17:39 Heparin Sodium (Porcine) (Heparin 5000 units/ml) 5,000 units EVERY 12 HOURS SUBQ 01/08/17 09:00 02/07/17 08:59 01/11/17 08:21 Hydromorphone HCl (Dilaudid) 1 mg Q4H PRN IVP severe pain 01/08/17 08:30 01/15/17 08:29 01/11/17 09:56 Lisinopril (Prinivil) 20 mg DAILY ORAL 01/08/17 09:00 02/07/17 08:59 01/11/17 08:17 Lorazepam (Ativan 2mg/ml 1ml) 0.5 mg Q4H PRN IV For Anxiety 01/08/17 06:00 01/15/17 05:59 01/11/17 11:37 Miscellaneous Medication (fentaNYL Destruction) 1 ea Q72H MISC 01/10/17 18:00 02/09/17 17:59 01/10/17 17:36 Naloxone HCl (Narcan) 0.1 mg PRN IV Sedation scale 3 or 4 01/08/17 08:30 Ondansetron HCl (Zofran) 4 mg Q6H PRN IVP Nausea & Vomiting 01/08/17 06:00 02/07/17 05:59 01/11/17 08:43 Oxycodone HCl (Roxicodone) 10 mg Q6H PRN ORAL moderate Breakthrough Pain 01/08/17 08:30 01/15/17 08:29 01/11/17 03:04 Phenytoin (Dilantin) 250 mg DAILY ORAL 01/08/17 09:00 02/07/17 08:59 01/11/17 08:18 Polyethylene Glycol (Miralax) 17 gm HSPRN PRN ORAL Constipation 01/08/17 06:00 02/07/17 05:59 Quetiapine Fumarate (SEROquel) 100 mg QHS ORAL 01/08/17 21:00 02/07/17 20:59 01/10/17 21:45 Trazodone HCl (Desyrel) 100 mg BEDTIME ORAL 01/08/17 21:00 02/07/17 20:59 01/10/17 21:46 Zolpidem Tartrate (Ambien) 5 mg HSPRN PRN ORAL Insomnia 01/08/17 06:00 01/15/17 05:59 LAUREN OCHOA Jan 11, 2017 11:39
[2017-01-11 12:00] VITALS: BP 148/80
--- NOTE | 2017-01-11 13:13 | General Progress Note ---
Assessment/Plan Problem List: (1) COPD (chronic obstructive pulmonary disease) ICD Codes: J44.9 - Chronic obstructive pulmonary disease, unspecified SNOMED: 18577458 (2) PTSD (post-traumatic stress disorder) ICD Codes: F43.10 - Post-traumatic stress disorder, unspecified SNOMED: 15242762 (3) Chronic pain ICD Codes: G89.29 - Other chronic pain SNOMED: 15241189 (4) CVA (cerebral vascular accident) ICD Codes: I63.9 - Cerebral infarction, unspecified SNOMED: 012972099 (5) CHF (congestive heart failure) ICD Codes: I50.9 - Heart failure, unspecified SNOMED: 04750962 (6) UTI (urinary tract infection) ICD Codes: N39.0 - Urinary tract infection, site not specified SNOMED: 39881042 (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 - Malignant neoplasm of long bones of unspecified lower limb SNOMED: 388025854, 633050693 Status: stable, progressing, tolerating diet Assessment/Plan ot pt diet abx cbc bmp am dc plan snf Subjective Constitutional: Reports: weakness Allergies: Coded Allergies: KETOROLAC (Verified Allergy, Severe, 08/06/16) ASPIRIN (Verified Allergy, Intermediate, 08/06/16) CEPHALEXIN (Verified Allergy, Mild, 12/13/14) FISH DERIVED (Unverified Allergy, Unknown, 08/29/16) PEANUT (Verified Allergy, Unknown, 11/19/15) Uncoded Allergies: fish (Allergy, Unknown, 08/12/16) All Systems: reviewed and negative except above Subjective sl gen pain Objective Last 24 Hour Vital Signs Date Time Temp Pulse Resp B/P (MAP) Pulse Ox O2 Delivery O2 Flow Rate FiO2 01/11/17 08:38 99.1 100 18 157/90 Room Air 01/11/17 08:17 157/90 01/11/17 08:17 100 157/90 01/11/17 04:00 97.9 78 20 115/66 97 Room Air 01/11/17 00:59 98.4 87 20 113/67 94 Room Air 01/10/17 20:31 98.7 87 18 140/70 98 Room Air 01/10/17 15:52 96.8 85 20 128/76 97 Room Air Laboratory Tests 01/11/17 07:35: White Blood Count 8.1, Red Blood Count 4.61L, Hemoglobin 14.6, Hematocrit 43.3, Mean Corpuscular Volume 94, Mean Corpuscular Hemoglobin 31.8H, Mean Corpuscular Hemoglobin Concent 33.8, Red Cell Distribution Width 12.7, Platelet Count 299, Mean Platelet Volume 6.5, Neutrophils (%) (Auto) 54.9, Lymphocytes (%) (Auto) 34.2, Monocytes (%) (Auto) 7.8, Eosinophils (%) (Auto) 2.4, Basophils (%) (Auto ) 0.7, Sodium Level 138, Potassium Level 3.8, Chloride Level 103, Carbon Dioxide Level 25, Anion Gap 10, Blood Urea Nitrogen 6L, Creatinine 0.7, Estimat Glomerular Filtration Rate > 60, Glucose Level 139H, Calcium Level 8.9 Height (Feet): 5 Height (Inches): 10.00 Weight (Pounds): 325 General Appearance: alert EENT: normal ENT inspection Neck: normal alignment Cardiovascular: normal peripheral pulses, normal rate, regular rhythm Respiratory/Chest: chest wall non-tender, lungs clear, normal breath sounds Abdomen: normal bowel sounds, non tender, soft Extremities: normal inspection Edema: no edema noted Arm (L), no edema noted Arm (R), no edema noted Leg (L), no edema noted Leg (R), no edema noted Pedal (L), no edema noted Pedal (R), no edema noted Generalized Neurologic: responsive, motor weakness Skin: normal pigmentation, warm/dry MARQUEZ FOY Jan 11, 2017 13:13
[2017-01-11] MEDS ORDERED: LORazepam Inj 2mg/ml 1ml IV PRN (14:45)
[2017-01-11 16:00] VITALS: BP 128/86
[2017-01-11] MEDS ORDERED: Miralax 17gm pkt ORAL PRN (20:00)
[2017-01-11] MEDS ORDERED: Zolpidem 5mg tab ORAL PRN (20:00)
[2017-01-11] MEDS ORDERED: Mylanta II UD 30ml ORAL PRN (20:00)
[2017-01-11] MEDS ORDERED: Naloxone 0.4mg/ml Inj IV PRN (20:00)
[2017-01-11] MEDS ORDERED: Amitriptyline 100mg tab ORAL SCH (21:00)
[2017-01-11] MEDS: Amitriptyline 100mg tab ORAL SCH (21:23)
[2017-01-11] MEDS: TraZODone 100mg tab ORAL SCH (21:23)
--- NOTE | 2017-01-11 22:48 | General Progress Note ---
Assessment/Plan Assessment/Plan ASSESSMENT AND RECOMMENDATIONS: 1. Osteosarcoma,has been treated with chemo and xrt in the past ==> f/u with Dr. Jackson [facility] group for further treatment --> have referred to Dr. Rausch before 2. Anemia secondary to chronic disease. Continue to observe. 3. Leukocytosis, likely secondary to reactive process. WBC count has normalized 4. Elevated blood sugar. Continue to monitor. 5. Sepsis with an elevated lactate, better 6. Hepatitis C. 7. Morbid obesity. 8. Seizure disorder. Subjective Allergies: Coded Allergies: KETOROLAC (Verified Allergy, Severe, 08/06/16) ASPIRIN (Verified Allergy, Intermediate, 08/06/16) CEPHALEXIN (Verified Allergy, Mild, 12/13/14) FISH DERIVED (Unverified Allergy, Unknown, 08/29/16) PEANUT (Verified Allergy, Unknown, 11/19/15) Uncoded Allergies: fish (Allergy, Unknown, 08/12/16) All Systems: reviewed and negative except above Subjective no events overnight Objective Last 24 Hour Vital Signs Date Time Temp Pulse Resp B/P (MAP) Pulse Ox O2 Delivery O2 Flow Rate FiO2 01/11/17 16:00 98.1 81 19 128/86 95 Room Air 01/11/17 12:00 97.8 80 19 148/80 Room Air 01/11/17 08:38 99.1 100 18 157/90 Room Air 01/11/17 08:17 157/90 01/11/17 08:17 100 157/90 01/11/17 04:00 97.9 78 20 115/66 97 Room Air 01/11/17 00:59 98.4 87 20 113/67 94 Room Air Laboratory Tests 01/11/17 07:35: White Blood Count 8.1, Red Blood Count 4.61L, Hemoglobin 14.6, Hematocrit 43.3, Mean Corpuscular Volume 94, Mean Corpuscular Hemoglobin 31.8H, Mean Corpuscular Hemoglobin Concent 33.8, Red Cell Distribution Width 12.7, Platelet Count 299, Mean Platelet Volume 6.5, Neutrophils (%) (Auto) 54.9, Lymphocytes (%) (Auto) 34.2, Monocytes (%) (Auto) 7.8, Eosinophils (%) (Auto) 2.4, Basophils (%) (Auto ) 0.7, Sodium Level 138, Potassium Level 3.8, Chloride Level 103, Carbon Dioxide Level 25, Anion Gap 10, Blood Urea Nitrogen 6L, Creatinine 0.7, Estimat Glomerular Filtration Rate > 60, Glucose Level 139H, Calcium Level 8.9 Height (Feet): 5 Height (Inches): 10.00 Weight (Pounds): 325 General Appearance: no apparent distress EENT: normal ENT inspection Neck: normal alignment Cardiovascular: regularly irregular Respiratory/Chest: chest wall non-tender Extremities: non-tender 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
[2017-01-12] MEDS: LORazepam Inj 2mg/ml 1ml IV PRN ×3 (00:05→21:27)
[2017-01-12] MEDS: HYDROmorphone 1mg/ml Carpuject IVP PRN ×4 (06:19→20:38)
[2017-01-12 08:00] VITALS: BP 137/95
--- NOTE | 2017-01-12 08:00 | Consultation ---
DATE OF CONSULTATION: 01/11/2017 NOTE: POOR AUDIO CONSULTING PHYSICIAN: Awa Thomas M.D. HISTORY OF PRESENT ILLNESS: The patient is a 41-year-old male patient, who is admitted to [facility] secondary to chest pain and opioid withdrawal. The patient with flu-like symptoms secondary to depression, but denies any further suicidal or homicidal ideations. He is denying any depression. PAST MEDICAL HISTORY: neuropathy, lower extremity weakness, persistent unilateral lower extremity weakness. ALLERGIES: No known drug allergies. SUBSTANCE ABUSE HISTORY: History of opioid abuse and also polysubstance abuse in general. PAST PSYCHIATRIC HISTORY: He has had multiple admissions last 90 days. SOCIAL HISTORY: Financially supported by [employer] and Medicare. Currently homeless. MENTAL STATUS EXAMINATION: This is a 41-year-old male with psychomotor agitation. Mood is irritable and agitated. Affect guarded and restricted. Thought process disorganized and illogical. Denies any current suicidal or homicidal thoughts. Insight and judgment is poor. DIAGNOSIS: Bipolar II. PLAN: trazodone nightly, Seroquel 100 mg nightly, Tegretol twice a day, Keppra 500 mg nightly to stabilize his mood, p.o. b.i.d. 200 mg nightly. Chart reviewed and discussed with staff. Seen and assessed at bedside. structured environment such as SNF once he is medically cleared. Awa Thomas M.D. DR: Teresita JOB#: [id number] CC:
--- NOTE | 2017-01-12 08:17 | General Progress Note ---
Assessment/Plan Assessment/Plan (1) Osteosarcoma of femur (2) Morbid obesity (3) Chronic pain syndrome (4) Seizure disorder We will continued on Fentanyl patch, Oxycodone and Dilaudid. Pt was d/w Dr. Muhammad and he concurred. Subjective Date patient seen: Jan 12, 2017 Time patient seen: 07:00 - am Allergies: Coded Allergies: KETOROLAC (Verified Allergy, Severe, 08/06/16) ASPIRIN (Verified Allergy, Intermediate, 08/06/16) CEPHALEXIN (Verified Allergy, Mild, 12/13/14) FISH DERIVED (Unverified Allergy, Unknown, 08/29/16) PEANUT (Verified Allergy, Unknown, 11/19/15) Uncoded Allergies: fish (Allergy, Unknown, 08/12/16) Subjective REVIEW OF SYSTEMS: Denies rash, fever, chills, sweating, dizziness, drowsiness, blurred vision, sore throat, change in weight. No chest pain. He is complaining of low back and lower extremity pain. SUBJECTIVE: Pain has per patient has been unchanged and is severe with movement. The pain has been tolerated on the medication and he has no new complaints or adverse reactions. Objective Last 24 Hour Vital Signs Date Time Temp Pulse Resp B/P (MAP) Pulse Ox O2 Delivery O2 Flow Rate FiO2 01/12/17 08:00 97.9 98 17 137/95 99 Room Air 01/12/17 06:49 98.1 01/11/17 16:00 98.1 81 19 128/86 95 Room Air 01/11/17 12:00 97.8 80 19 148/80 Room Air 01/11/17 08:38 99.1 100 18 157/90 Room Air 01/11/17 08:17 157/90 01/11/17 08:17 100 157/90 Height (Feet): 5 Height (Inches): 10.00 Weight (Pounds): 325 Objective GENERAL: Alert and oriented x3. HEENT: PERRLA. NECK: Range of motion is full in all direction. No tenderness to paracervical muscles. No adenopathy. LUNGS: Decreased breath sounds bilaterally. HEART: Regular. ABDOMEN: Obese, tenderness to palpation BACK: Range of motion is decreased on flexion and extension with tenderness to paraspinal muscles. No tenderness to trapezius muscles. EXTREMITIES: No cyanosis, no clubbing, no edema. NEUROLOGICAL EXAM: Lower extremities range of motion is decreased due to patient's medical condition with motor being 4/5 in all muscles bilaterally. LIA HAGEN. Jan 12, 2017 08:17
[2017-01-12] MEDS: Lisinopril 20mg tab ORAL SCH (10:27)
[2017-01-12] MEDS: Phenytoin Susp 100mg/4ml ORAL SCH (10:31)
[2017-01-12] MEDS: carBAMazepine 200mg tab ORAL SCH ×2 (10:33→20:39)
[2017-01-12] MEDS: Heparin 5000 units/ml inj SUBQ SCH ×2 (10:36→20:41)
[2017-01-12] MEDS: Depakote ER 500mg tab ORAL SCH ×2 (10:41→20:39)
[2017-01-12 12:00] VITALS: BP 128/83
[2017-01-12] MEDS: oxyCODONE 5mg IR tab ORAL PRN (14:04)
--- NOTE | 2017-01-12 14:25 | Nephrology Progress Note ---
Assessment/Plan Assessment 1. Proteinuria. 2. Hematuria. 3. Morbid obesity. 4. Diabetes. 5. Hypertension. Plan plan to continue current monitoring renal function avoid NSAID replace electrolyte as need it repeat u/a Subjective Constitutional: Reports: no symptoms HEENT: Reports: no symptoms Genitourinary: Reports: no symptoms 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: Reports: no symptoms Subjective alert and awake Objective Objective Last 24 Hour Vital Signs Date Time Temp Pulse Resp B/P (MAP) Pulse Ox O2 Delivery O2 Flow Rate FiO2 01/12/17 12:00 97.7 83 20 128/83 96 Room Air 01/12/17 10:27 134/79 01/12/17 10:24 82 134/79 01/12/17 08:00 97.9 98 17 137/95 99 Room Air 01/12/17 06:49 98.1 01/11/17 16:00 98.1 81 19 128/86 95 Room Air Height (Feet): 5 Height (Inches): 10.00 Weight (Pounds): 325 Objective HEAD AND NECK: No JVP. No LAD. No thyromegaly. Extraocular movement intact. Pupils are reactive to light and accommodation. LUNGS: Decreased breathing sound of the lower lung. GASTROINTESTINAL: Abdomen is soft, nontender, and nondistended. EXTREMITIES: No edema. No clubbing. No cyanosis. MARIANA LUND Jan 12, 2017 14:25
--- NOTE | 2017-01-12 15:06 | General Progress Note ---
Assessment/Plan Problem List: (1) COPD (chronic obstructive pulmonary disease) ICD Codes: J44.9 - Chronic obstructive pulmonary disease, unspecified SNOMED: 49355914 (2) PTSD (post-traumatic stress disorder) ICD Codes: F43.10 - Post-traumatic stress disorder, unspecified SNOMED: 64469308 (3) Chronic pain ICD Codes: G89.29 - Other chronic pain SNOMED: 72716373 (4) CVA (cerebral vascular accident) ICD Codes: I63.9 - Cerebral infarction, unspecified SNOMED: 217113967 (5) CHF (congestive heart failure) ICD Codes: I50.9 - Heart failure, unspecified SNOMED: 95484118 (6) UTI (urinary tract infection) ICD Codes: N39.0 - Urinary tract infection, site not specified SNOMED: 21229818 (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 - Malignant neoplasm of long bones of unspecified lower limb SNOMED: 726425464, 611840995 Status: stable, progressing, tolerating diet Assessment/Plan ot pt diet abx cbc bmp am dc plan snf Subjective Constitutional: Reports: weakness Allergies: Coded Allergies: KETOROLAC (Verified Allergy, Severe, 08/06/16) ASPIRIN (Verified Allergy, Intermediate, 08/06/16) CEPHALEXIN (Verified Allergy, Mild, 12/13/14) FISH DERIVED (Unverified Allergy, Unknown, 08/29/16) PEANUT (Verified Allergy, Unknown, 11/19/15) Uncoded Allergies: fish (Allergy, Unknown, 08/12/16) All Systems: reviewed and negative except above Subjective sl gen pain Objective Last 24 Hour Vital Signs Date Time Temp Pulse Resp B/P (MAP) Pulse Ox O2 Delivery O2 Flow Rate FiO2 01/12/17 12:00 97.7 83 20 128/83 96 Room Air 01/12/17 10:27 134/79 01/12/17 10:24 82 134/79 01/12/17 08:00 97.9 98 17 137/95 99 Room Air 01/12/17 06:49 98.1 01/11/17 16:00 98.1 81 19 128/86 95 Room Air Height (Feet): 5 Height (Inches): 10.00 Weight (Pounds): 325 General Appearance: alert EENT: normal ENT inspection Neck: normal alignment Cardiovascular: normal peripheral pulses, normal rate, regular rhythm Respiratory/Chest: chest wall non-tender, lungs clear, normal breath sounds Abdomen: normal bowel sounds, non tender, soft Edema: no edema noted Arm (L), no edema noted Arm (R), no edema noted Leg (L), no edema noted Leg (R), no edema noted Pedal (L), no edema noted Pedal (R), no edema noted Generalized Neurologic: responsive, motor weakness Skin: normal pigmentation, warm/dry MARQUEZ FOY Jan 12, 2017 15:06
[2017-01-12 15:59] VITALS: BP 130/68
--- NOTE | 2017-01-12 17:48 | Pulmonology Progress Note ---
Assessment/Plan Problems: (1) ACS (acute coronary syndrome) (2) COPD (chronic obstructive pulmonary disease) (3) Chronic diarrhea (4) Psychiatric disorder (5) Morbid obesity Assessment/Plan no new complains pt is sad b/o passing of her step-mother symptomatic treatment pain control psych evaluation med/surg dc planning Subjective ROS Limited/Unobtainable: No Constitutional: Reports: no symptoms HEENT: Repors: no symptoms Respiratory: Reports: no symptoms Allergies: Coded Allergies: KETOROLAC (Verified Allergy, Severe, 08/06/16) ASPIRIN (Verified Allergy, Intermediate, 08/06/16) CEPHALEXIN (Verified Allergy, Mild, 12/13/14) FISH DERIVED (Unverified Allergy, Unknown, 08/29/16) PEANUT (Verified Allergy, Unknown, 11/19/15) Uncoded Allergies: fish (Allergy, Unknown, 08/12/16) Objective Last 24 Hour Vital Signs Date Time Temp Pulse Resp B/P (MAP) Pulse Ox O2 Delivery O2 Flow Rate FiO2 01/12/17 15:59 97.9 102 19 130/68 97 Room Air 01/12/17 12:00 97.7 83 20 128/83 96 Room Air 01/12/17 10:27 134/79 01/12/17 10:24 82 134/79 01/12/17 08:00 97.9 98 17 137/95 99 Room Air 01/12/17 06:49 98.1 General Appearance: WD/WN, no acute distress HEENT: atraumatic, anicteric Respiratory/Chest: lungs clear Cardiovascular: normal peripheral pulses, normal rate Abdomen: normal bowel sounds, soft, non tender Genitourinary: normal external genitalia Extremities: no clubbing Skin: no lesions 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: swimmer II-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 normal Microbiology Date/Time Source Procedure Growth Status 01/09/17 20:45 Urine,Clean Catch Urine Culture - Final Mixed Gram Positive Organism Complete Current Medications Medications (Trade) Dose Ordered Sig/Robert Route PRN Reason Start Time Stop Time Status Last Admin Dose Admin Acetaminophen (Tylenol) 650 mg Q4H PRN ORAL fever 01/11/17 20:00 02/07/17 19:59 Al Hydroxide/Mg Hydroxide (Mylanta II) 30 ml Q6H PRN ORAL dyspepsia 01/11/17 20:00 02/10/17 19:59 Amitriptyline HCl (Elavil) 100 mg BEDTIME ORAL 01/11/17 21:00 02/10/17 20:59 01/11/17 21:23 Amlodipine Besylate (Norvasc) 10 mg DAILY ORAL 01/12/17 09:00 02/07/17 08:59 01/12/17 10:24 Carbamazepine (TEGretol) 300 mg Q12HR ORAL 01/11/17 21:00 02/07/17 08:59 01/12/17 10:33 Dextrose (Dextrose 50%) STAT PRN IV Hypoglycemia 01/11/17 20:00 02/10/17 19:59 Divalproex Sodium (Depakote ER) 1,000 mg EVERY 12 HOURS ORAL 01/11/17 21:00 02/07/17 08:59 01/12/17 10:41 Fentanyl (Duragesic) 1 patch Q72H TDERMAL 01/13/17 18:00 01/17/17 17:59 Haloperidol (Haldol) 5 mg BID ORAL 01/12/17 09:00 02/10/17 17:59 01/12/17 17:40 Heparin Sodium (Porcine) (Heparin 5000 units/ml) 5,000 units EVERY 12 HOURS SUBQ 01/11/17 21:00 02/07/17 08:59 01/12/17 10:36 Hydromorphone HCl (Dilaudid) 1 mg Q4H PRN IVP SEVERE PAIN 01/11/17 20:30 01/15/17 08:29 01/12/17 15:17 Lisinopril (Prinivil) 20 mg DAILY ORAL 01/12/17 09:00 02/07/17 08:59 01/12/17 10:27 Lorazepam (Ativan 2mg/ml 1ml) 2 mg Q6H PRN IV For Anxiety 01/11/17 20:00 01/18/17 19:59 01/12/17 12:17 Miscellaneous Medication (fentaNYL Destruction) 1 ea Q72H MISC 01/13/17 18:00 02/09/17 17:59 Naloxone HCl (Narcan) 0.1 mg PRN IV Sedation scale 3 or 4 01/11/17 20:00 02/10/17 19:59 Ondansetron HCl (Zofran) 4 mg Q6H PRN IVP Nausea & Vomiting 01/11/17 20:00 02/10/17 19:59 Oxycodone HCl (Roxicodone) 10 mg Q6H PRN ORAL Moderate Breakthrough Pain 01/11/17 20:00 01/15/17 19:59 01/12/17 14:04 Phenytoin (Dilantin) 250 mg DAILY ORAL 01/12/17 09:00 02/07/17 08:59 01/12/17 10:31 Polyethylene Glycol (Miralax) 17 gm HSPRN PRN ORAL Constipation 01/11/17 20:00 02/10/17 19:59 Quetiapine Fumarate (SEROquel) 100 mg QHS ORAL 01/11/17 21:00 02/07/17 20:59 01/11/17 21:24 Trazodone HCl (Desyrel) 100 mg BEDTIME ORAL 01/11/17 21:00 02/07/17 20:59 01/11/17 21:23 Zolpidem Tartrate (Ambien) 5 mg HSPRN PRN ORAL Insomnia 01/11/17 20:00 01/18/17 19:59 LAUREN OCHOA Jan 12, 2017 17:47
[2017-01-12] MEDS: Amitriptyline 100mg tab ORAL SCH (20:39)
[2017-01-12] MEDS: TraZODone 100mg tab ORAL SCH (20:39)
--- NOTE | 2017-01-12 22:16 | General Progress Note ---
Assessment/Plan Assessment/Plan ASSESSMENT AND RECOMMENDATIONS: 1. Osteosarcoma,has been treated with chemo and xrt in the past ==> f/u with Dr. Jackson [facility] group for further treatment --> have referred to Dr. Rausch before 2. Anemia secondary to chronic disease. Continue to observe. 3. Leukocytosis, likely secondary to reactive process. WBC count has normalized 4. Elevated blood sugar. Continue to monitor. 5. Sepsis with an elevated lactate, better 6. Hepatitis C. 7. Morbid obesity. 8. Seizure disorder. Subjective Allergies: Coded Allergies: KETOROLAC (Verified Allergy, Severe, 08/06/16) ASPIRIN (Verified Allergy, Intermediate, 08/06/16) CEPHALEXIN (Verified Allergy, Mild, 12/13/14) FISH DERIVED (Unverified Allergy, Unknown, 08/29/16) PEANUT (Verified Allergy, Unknown, 11/19/15) Uncoded Allergies: fish (Allergy, Unknown, 08/12/16) All Systems: reviewed and negative except above Subjective no labs for today Objective Last 24 Hour Vital Signs Date Time Temp Pulse Resp B/P (MAP) Pulse Ox O2 Delivery O2 Flow Rate FiO2 01/12/17 21:08 97.9 01/12/17 15:59 97.9 102 19 130/68 97 Room Air 01/12/17 12:00 97.7 83 20 128/83 96 Room Air 01/12/17 10:27 134/79 01/12/17 10:24 82 134/79 01/12/17 08:00 97.9 98 17 137/95 99 Room Air Intake and Output 01/12/17 01/13/17 19:00 07:00 Intake Total 480 ml Balance 480 ml Intake Oral 480 ml # Bowel Movements 1 Height (Feet): 5 Height (Inches): 10.00 Weight (Pounds): 325 General Appearance: no apparent distress EENT: normal ENT inspection Neck: normal alignment Cardiovascular: normal peripheral pulses Respiratory/Chest: chest wall non-tender Genitourinary/Rectal: normal genital exam Extremities: non-tender Bin Abbott Jan 12, 2017 22:16
[2017-01-13] MEDS: HYDROmorphone 1mg/ml Carpuject IVP PRN ×2 (06:49→12:32)
[2017-01-13 08:00] VITALS: BP 146/83
--- NOTE | 2017-01-13 08:18 | General Progress Note ---
Assessment/Plan Assessment/Plan (1) Osteosarcoma of femur (2) Morbid obesity (3) Chronic pain syndrome (4) Seizure disorder We will continued on Fentanyl patch, Oxycodone and Dilaudid. Rx in anticipation for discharge written for patient. Pt was d/w Dr. Muhammad and he concurred. Subjective Date patient seen: Jan 13, 2017 Time patient seen: 07:00 - am Allergies: Coded Allergies: KETOROLAC (Verified Allergy, Severe, 08/06/16) ASPIRIN (Verified Allergy, Intermediate, 08/06/16) CEPHALEXIN (Verified Allergy, Mild, 12/13/14) FISH DERIVED (Unverified Allergy, Unknown, 08/29/16) PEANUT (Verified Allergy, Unknown, 11/19/15) Uncoded Allergies: fish (Allergy, Unknown, 08/12/16) Subjective REVIEW OF SYSTEMS: Denies rash, fever, chills, sweating, dizziness, drowsiness, blurred vision, sore throat, change in weight. No chest pain. He is complaining of low back and lower extremity pain. SUBJECTIVE: Patient is in bed no signs of distress or pain at this time. He has no new complaints. Objective Last 24 Hour Vital Signs Date Time Temp Pulse Resp B/P (MAP) Pulse Ox O2 Delivery O2 Flow Rate FiO2 01/12/17 21:08 97.9 01/12/17 15:59 97.9 102 19 130/68 97 Room Air 01/12/17 12:00 97.7 83 20 128/83 96 Room Air 01/12/17 10:27 134/79 01/12/17 10:24 82 134/79 Height (Feet): 5 Height (Inches): 10.00 Weight (Pounds): 325 Objective GENERAL: Alert and oriented x3. HEENT: PERRLA. NECK: Range of motion is full in all direction. No tenderness to paracervical muscles. No adenopathy. LUNGS: Decreased breath sounds bilaterally. HEART: Regular. ABDOMEN: Obese, tenderness to palpation BACK: Range of motion is decreased on flexion and extension with tenderness to paraspinal muscles. No tenderness to trapezius muscles. EXTREMITIES: No cyanosis, no clubbing, no edema. NEUROLOGICAL EXAM: Lower extremities range of motion is decreased due to patient's medical condition with motor being 4/5 in all muscles bilaterally. ZEDNLIA MONTAÑO Jan 13, 2017 08:18
[2017-01-13] MEDS: oxyCODONE 5mg IR tab ORAL PRN (09:54)
[2017-01-13] MEDS: Lisinopril 20mg tab ORAL SCH (09:54)
--- NOTE | 2017-01-13 09:54 | Nephrology Progress Note ---
Assessment/Plan Assessment 1. Proteinuria. 2. Hematuria. 3. Morbid obesity. 4. Diabetes. 5. Hypertension. Plan plan to continue current monitoring renal function avoid NSAID replace electrolyte as need it repeat u/a Subjective Constitutional: Reports: no symptoms HEENT: Reports: no symptoms Genitourinary: Reports: no symptoms 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: Reports: no symptoms Subjective alert and awake c/o back and knee pain Objective Objective Last 24 Hour Vital Signs Date Time Temp Pulse Resp B/P (MAP) Pulse Ox O2 Delivery O2 Flow Rate FiO2 01/12/17 21:08 97.9 01/12/17 15:59 97.9 102 19 130/68 97 Room Air 01/12/17 12:00 97.7 83 20 128/83 96 Room Air 01/12/17 10:27 134/79 01/12/17 10:24 82 134/79 Height (Feet): 5 Height (Inches): 10.00 Weight (Pounds): 325 Objective HEAD AND NECK: No JVP. No LAD. No thyromegaly. Extraocular movement intact. Pupils are reactive to light and accommodation. LUNGS: Decreased breathing sound of the lower lung. GASTROINTESTINAL: Abdomen is soft, nontender, and nondistended. EXTREMITIES: No edema. No clubbing. No cyanosis. MARIANA LNUD Jan 13, 2017 09:54
[2017-01-13] MEDS: Depakote ER 500mg tab ORAL SCH (09:55)
[2017-01-13] MEDS: carBAMazepine 200mg tab ORAL SCH (09:57)
[2017-01-13] MEDS: Heparin 5000 units/ml inj SUBQ SCH (10:00)
[2017-01-13] MEDS: Phenytoin Susp 100mg/4ml ORAL SCH (10:01)
[2017-01-13] MEDS: LORazepam Inj 2mg/ml 1ml IV PRN (10:14)
--- NOTE | 2017-01-13 11:25 | Infectious Diseases Prog Note ---
Assessment/Plan Assessment/Plan antibiotics : none A 1. leucocytosis resolved 2. opiate withdrawal 3. seizures 4. HTN P 1. continue off antibiotics Subjective ROS Limited/Unobtainable: Yes Allergies: Coded Allergies: KETOROLAC (Verified Allergy, Severe, 08/06/16) ASPIRIN (Verified Allergy, Intermediate, 08/06/16) CEPHALEXIN (Verified Allergy, Mild, 12/13/14) FISH DERIVED (Unverified Allergy, Unknown, 08/29/16) PEANUT (Verified Allergy, Unknown, 11/19/15) Uncoded Allergies: fish (Allergy, Unknown, 08/12/16) Objective Vital Signs Last 24 Hour Vital Signs Date Time Temp Pulse Resp B/P (MAP) Pulse Ox O2 Delivery O2 Flow Rate FiO2 01/13/17 09:56 102 130/68 01/13/17 09:54 130/68 01/12/17 21:08 97.9 01/12/17 15:59 97.9 102 19 130/68 97 Room Air 01/12/17 12:00 97.7 83 20 128/83 96 Room Air Height (Feet): 5 Height (Inches): 10.00 Weight (Pounds): 325 Respiratory/Chest: lungs clear Cardiovascular: normal rate, regular rhythm, no gallop/murmur Abdomen: soft, non tender Extremities: no edema BETTE MARTINEZ Jan 13, 2017 11:25
[2017-01-13 12:00] VITALS: BP 130/91
--- NOTE | 2017-01-13 13:15 | Progress Note ---
DATE: 01/12/2017 SUBJECTIVE: This is a 41-year-old male patient with chest pain and opioid withdrawal. PLAN: Plan for this patient is to continue treatment 100 mg at bedtime for depression and anxiety Ativan 2 mg as needed every six hours for anxiety and agitation. Seen and assessed at bedside. Chart reviewed and discussed with staff. Awa Thomas M.D. DR: NORA JOB#: [id number] CC:
--- NOTE | 2017-01-13 13:25 | Pulmonology Progress Note ---
Assessment/Plan Problems: (1) ACS (acute coronary syndrome) (2) COPD (chronic obstructive pulmonary disease) (3) Chronic diarrhea (4) Psychiatric disorder (5) Morbid obesity Assessment/Plan no new complains pt is sad b/o passing of her step-mother symptomatic treatment pain control psych evaluation med/surg dc planning prescription were written for discharge. Subjective ROS Limited/Unobtainable: No Constitutional: Reports: no symptoms HEENT: Repors: no symptoms Respiratory: Reports: no symptoms Allergies: Coded Allergies: KETOROLAC (Verified Allergy, Severe, 08/06/16) ASPIRIN (Verified Allergy, Intermediate, 08/06/16) CEPHALEXIN (Verified Allergy, Mild, 12/13/14) FISH DERIVED (Unverified Allergy, Unknown, 08/29/16) PEANUT (Verified Allergy, Unknown, 11/19/15) Uncoded Allergies: fish (Allergy, Unknown, 08/12/16) Objective Last 24 Hour Vital Signs Date Time Temp Pulse Resp B/P (MAP) Pulse Ox O2 Delivery O2 Flow Rate FiO2 01/13/17 09:56 102 130/68 01/13/17 09:54 130/68 01/13/17 08:00 97.7 96 19 146/83 100 Room Air 01/12/17 21:08 97.9 01/12/17 15:59 97.9 102 19 130/68 97 Room Air General Appearance: WD/WN HEENT: normocephalic Respiratory/Chest: chest wall non-tender, lungs clear Cardiovascular: normal peripheral pulses, normal rate Abdomen: normal bowel sounds, soft, non tender Genitourinary: normal external genitalia Extremities: no clubbing Skin: no rash 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: 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 normal, no motor/sensory deficits Current Medications Medications (Trade) Dose Ordered Sig/Robert Route PRN Reason Start Time Stop Time Status Last Admin Dose Admin Acetaminophen (Tylenol) 650 mg Q4H PRN ORAL fever 01/11/17 20:00 02/07/17 19:59 Al Hydroxide/Mg Hydroxide (Mylanta II) 30 ml Q6H PRN ORAL dyspepsia 01/11/17 20:00 02/10/17 19:59 Amitriptyline HCl (Elavil) 100 mg BEDTIME ORAL 01/11/17 21:00 02/10/17 20:59 01/12/17 20:39 Amlodipine Besylate (Norvasc) 10 mg DAILY ORAL 01/12/17 09:00 02/07/17 08:59 01/13/17 09:56 Carbamazepine (TEGretol) 300 mg Q12HR ORAL 01/11/17 21:00 02/07/17 08:59 01/13/17 09:57 Dextrose (Dextrose 50%) STAT PRN IV Hypoglycemia 01/11/17 20:00 02/10/17 19:59 Divalproex Sodium (Depakote ER) 1,000 mg EVERY 12 HOURS ORAL 01/11/17 21:00 02/07/17 08:59 01/13/17 09:55 Fentanyl (Duragesic) 1 patch Q72H TDERMAL 01/13/17 18:00 01/17/17 17:59 Haloperidol (Haldol) 5 mg BID ORAL 01/12/17 09:00 02/10/17 17:59 01/13/17 09:55 Heparin Sodium (Porcine) (Heparin 5000 units/ml) 5,000 units EVERY 12 HOURS SUBQ 01/11/17 21:00 02/07/17 08:59 01/13/17 10:00 Hydromorphone HCl (Dilaudid) 1 mg Q4H PRN IVP SEVERE PAIN 01/11/17 20:30 01/15/17 08:29 01/13/17 12:32 Lisinopril (Prinivil) 20 mg DAILY ORAL 01/12/17 09:00 02/07/17 08:59 01/13/17 09:54 Lorazepam (Ativan 2mg/ml 1ml) 2 mg Q6H PRN IV For Anxiety 01/11/17 20:00 01/18/17 19:59 01/13/17 10:14 Miscellaneous Medication (fentaNYL Destruction) 1 ea Q72H MISC 01/13/17 18:00 02/09/17 17:59 Naloxone HCl (Narcan) 0.1 mg PRN IV Sedation scale 3 or 4 01/11/17 20:00 02/10/17 19:59 Ondansetron HCl (Zofran) 4 mg Q6H PRN IVP Nausea & Vomiting 01/11/17 20:00 02/10/17 19:59 01/13/17 10:14 Oxycodone HCl (Roxicodone) 10 mg Q6H PRN ORAL Moderate Breakthrough Pain 01/11/17 20:00 01/15/17 19:59 01/13/17 09:54 Phenytoin (Dilantin) 250 mg DAILY ORAL 01/12/17 09:00 02/07/17 08:59 01/13/17 10:01 Polyethylene Glycol (Miralax) 17 gm HSPRN PRN ORAL Constipation 01/11/17 20:00 02/10/17 19:59 Quetiapine Fumarate (SEROquel) 100 mg QHS ORAL 01/11/17 21:00 02/07/17 20:59 01/12/17 20:39 Trazodone HCl (Desyrel) 100 mg BEDTIME ORAL 01/11/17 21:00 02/07/17 20:59 01/12/17 20:39 Zolpidem Tartrate (Ambien) 5 mg HSPRN PRN ORAL Insomnia 01/11/17 20:00 01/18/17 19:59 LAUREN OCHOA Jan 13, 2017 13:25
--- NOTE | 2017-01-13 15:27 | General Progress Note ---
Assessment/Plan Problem List: (1) COPD (chronic obstructive pulmonary disease) ICD Codes: J44.9 - Chronic obstructive pulmonary disease, unspecified SNOMED: 97112631 (2) PTSD (post-traumatic stress disorder) ICD Codes: F43.10 - Post-traumatic stress disorder, unspecified SNOMED: 50394323 (3) Chronic pain ICD Codes: G89.29 - Other chronic pain SNOMED: 57694280 (4) CVA (cerebral vascular accident) ICD Codes: I63.9 - Cerebral infarction, unspecified SNOMED: 672390693 (5) CHF (congestive heart failure) ICD Codes: I50.9 - Heart failure, unspecified SNOMED: 37682229 (6) UTI (urinary tract infection) ICD Codes: N39.0 - Urinary tract infection, site not specified SNOMED: 20216416 (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 - Malignant neoplasm of long bones of unspecified lower limb SNOMED: 686390499, 512377131 Status: stable, progressing, tolerating diet Assessment/Plan ot pt diet abx cbc bmp am dc plan snf Subjective Constitutional: Reports: weakness Allergies: Coded Allergies: KETOROLAC (Verified Allergy, Severe, 08/06/16) ASPIRIN (Verified Allergy, Intermediate, 08/06/16) CEPHALEXIN (Verified Allergy, Mild, 12/13/14) FISH DERIVED (Unverified Allergy, Unknown, 08/29/16) PEANUT (Verified Allergy, Unknown, 11/19/15) Uncoded Allergies: fish (Allergy, Unknown, 08/12/16) All Systems: reviewed and negative except above Subjective sl gen pain Objective Last 24 Hour Vital Signs Date Time Temp Pulse Resp B/P (MAP) Pulse Ox O2 Delivery O2 Flow Rate FiO2 01/13/17 12:00 97.7 94 21 130/91 95 Room Air 01/13/17 09:56 102 130/68 01/13/17 09:54 130/68 01/13/17 08:00 97.7 96 19 146/83 100 Room Air 01/12/17 21:08 97.9 01/12/17 15:59 97.9 102 19 130/68 97 Room Air Height (Feet): 5 Height (Inches): 10.00 Weight (Pounds): 325 General Appearance: alert EENT: normal ENT inspection Neck: normal alignment Cardiovascular: normal peripheral pulses, normal rate, regular rhythm Respiratory/Chest: chest wall non-tender, lungs clear, normal breath sounds Abdomen: normal bowel sounds, non tender, soft Extremities: normal inspection Edema: no edema noted Arm (L), no edema noted Arm (R), no edema noted Leg (L), no edema noted Leg (R), no edema noted Pedal (L), no edema noted Pedal (R), no edema noted Generalized Neurologic: responsive, motor weakness Skin: normal pigmentation, warm/dry MARQUEZ FOY Jan 13, 2017 15:27
[2017-01-13] MEDS ORDERED: ATIVAN4 MG/1 ML PO (16:34)
[2017-01-13] MEDS ORDERED: HALDOL5 MG/1 ML PO (16:36)
[2017-01-13] MEDS ORDERED: OXYCODONE HCL20 M1 ORAL (16:37)
[2017-01-13] MEDS ORDERED: AMBIEN5 MG ORAL (16:38)
[2017-01-13] MEDS ORDERED: fentaNYL Destruction MISC SCH (18:00)
--- NOTE | 2017-01-13 22:18 | General Progress Note ---
Assessment/Plan Assessment/Plan ASSESSMENT AND RECOMMENDATIONS: 1. Osteosarcoma,has been treated with chemo and xrt in the past ==> f/u with Dr. Jackson [facility] for further treatment --> have referred to Dr. Rausch before 2. Anemia secondary to chronic disease. Continue to observe. 3. Leukocytosis, likely secondary to reactive process. WBC count has normalized 4. Elevated blood sugar. Continue to monitor. 5. Sepsis with an elevated lactate, better 6. Hepatitis C. 7. Morbid obesity. 8. Seizure disorder. Subjective Allergies: Coded Allergies: KETOROLAC (Verified Allergy, Severe, 08/06/16) ASPIRIN (Verified Allergy, Intermediate, 08/06/16) CEPHALEXIN (Verified Allergy, Mild, 12/13/14) FISH DERIVED (Unverified Allergy, Unknown, 08/29/16) PEANUT (Verified Allergy, Unknown, 11/19/15) Uncoded Allergies: fish (Allergy, Unknown, 08/12/16) All Systems: reviewed and negative except above Subjective no labs for today Objective Last 24 Hour Vital Signs Date Time Temp Pulse Resp B/P (MAP) Pulse Ox O2 Delivery O2 Flow Rate FiO2 01/13/17 12:00 97.7 94 21 130/91 95 Room Air 01/13/17 09:56 102 130/68 01/13/17 09:54 130/68 01/13/17 08:00 97.7 96 19 146/83 100 Room Air Height (Feet): 5 Height (Inches): 10.00 Weight (Pounds): 325 General Appearance: no apparent distress EENT: normal ENT inspection Cardiovascular: regular rhythm Extremities: non-tender Bin Abbott Jan 13, 2017 22:18
--- NOTE | 2017-01-14 08:15 | Progress Note ---
DATE: 01/13/2017 SUBJECTIVE: The patient is a 41-year-old male patient who is still admitted due to chest pain and opiate withdrawal. I am going to continue 00:14 at bedtime, as well as Seroquel and Haldol. I am going to continue with supportive care 00:16 discussed with staff. DIAGNOSIS: Bipolar II. PLAN: Seen and assessed at bedside. Chart was reviewed and discussed with staff. Awa Thomas M.D. DR: PRIYA JOB#: [id number] CC:
--- NOTE | 2017-01-14 17:01 | Discharge Summary ---
Discharge Summary Hospital Course Date of Admission Jan 08, 2017 at 02:57 Date of Discharge Jan 13, 2017 at 16:45 Admitting Diagnosis chest pain, opiate withdrawal HPI Yemi Stuart is a 41 year old male who was admitted on Jan 08, 2017 at 02:57 for Chest Pain,Opiate Withdrawal Hospital Course [id number] Discharge Discharge Disposition Patient was discharged to Rec care with Discharge Diagnoses: Courtney Lunsford NP Jan 14, 2017 17:01
--- NOTE | 2017-01-14 21:30 | Discharge Summary 2 SIG ---
DATE OF ADMISSION: 01/08/2017 DATE OF DISCHARGE: 01/13/2017 CONSULTANTS: 1. Awa Thomas M.D. 2. Bin Abbott M.D. 3. Ministerio Joe M.D. 4. Ignacio Muhammad M.D. 5. Sonja Joaquin M.D. 6. Juwan Hightower M.D. BRIEF HOSPITAL COURSE: The patient is a 41-year-old male who lives at home, presented to ED for increased shortness of breath and increased pain all over. He has chronic pain syndrome, posttraumatic stress disorder, and chronic obstructive pulmonary disease. He complained of chest pain that has been ongoing for two days and had vomiting and diarrhea. He has opioid dependence and was having withdrawal symptoms. Blood work was unremarkable. EKG was in normal sinus rhythm. LFTs were elevated. Toxicology was positive for marijuana. He was admitted to telemetry for chronic pain and opioid withdrawal. He had proteinuria and urinalysis with possible infection. He has history of osteosarcoma and has been treated with chemotherapy and radiation therapy in the past. Urine culture showed growth of mixed urogenital organisms. He was observed off antibiotic treatment. He was diagnosed with bipolar 2 disorder and was given trazodone, Seroquel, Tegretol, Keppra, and Elavil. He was given pain management consisting of oxycodone, Dilaudid, and fentanyl patch. He was advised to follow up with Dr. Siegel for further treatment of osteosarcoma. His leukocytosis eventually resolved. He was then discharged to recuperative care with home health. FINAL DIAGNOSES: 1. Leukocytosis. 2. Possible urinary tract infection. 3. Opiate withdrawal. 4. Chronic pain syndrome with opiate dependence. 5. Osteosarcoma of the femur. 6. Posttraumatic stress disorder. 7. Bipolar 2 disorder. 8. Chronic obstructive pulmonary disease. 9. Congestive heart failure. 10. Morbid obesity. 11. Chronic diarrhea. 12. Seizure disorder. 13. Proteinuria. 14. Hypertension. 15. Hepatitis C history. 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 DISPOSITION: The patient was discharged to recuperative care with home health. DISCHARGE MEDICATIONS: Refer to medication list. Jeremiah Singh D.O. I have been assigned to dictate discharge summary on this account and I was not involved in the patient's management. Courtney Lunsford N.P. DR: CELY JOB#: [id number] CC:
--- NOTE | 2017-01-17 16:15 | Cardiology Report ---
APPROVED REPORT EKG Measurement Heart [id number] VA 136P-6 [id number] Sinus tachycardia Otherwise normal ECG
== END 2017-01-13 16:45 | disposition home health service (06) | DRG 690 ==
LOC: EMR 01:18 → EDBEDREQ 02:54 → OBSVTOIN 02:57 → 2E 02:57 → EDBEDREQ 03:30 → 4W 01-11 20:46
DX: N39.0 Urinary tract infection, site not specified (principal); I50.9 Heart failure, unspecified; C40.21 Malignant neoplasm of long bones of right lower limb; Z68.42 Body mass index [BMI] 45.0-49.9, adult; E66.01 Morbid (severe) obesity due to excess calories; F11.23 Opioid dependence with withdrawal; F31.81 Bipolar II disorder; C76.51 Malignant neoplasm of right lower limb; D64.9 Anemia, unspecified; F20.9 Schizophrenia, unspecified; J44.9 Chronic obstructive pulmonary disease, unspecified; Z86.73 Personal history of transient ischemic attack (TIA), and cerebral infarction without residual deficits; F43.10 Post-traumatic stress disorder, unspecified; Z88.6 Allergy status to analgesic agent; Z88.1 Allergy status to other antibiotic agents; G89.4 Chronic pain syndrome; G40.909 Epilepsy, unspecified, not intractable, without status epilepticus; Z86.19 Personal history of other infectious and parasitic diseases; R19.7 Diarrhea, unspecified; Z91.010 Allergy to peanuts; Z88.8 Allergy status to other drugs, medicaments and biological substances; Z91.018 Allergy to other foods; F17.200 Nicotine dependence, unspecified, uncomplicated; D63.8 Anemia in other chronic diseases classified elsewhere; F19.10 Other psychoactive substance abuse, uncomplicated; Z92.3 Personal history of irradiation; Z16.22 Resistance to vancomycin related antibiotics; R07.9 Chest pain, unspecified
CPT/HCPCS: 36415; 71010; 80048; 80053; 80307; 81003; 82043; 82044; 82550; 82553; 82570; 83735; 83880; 84100; 84300; 84443; 84484; 85025; 85651; 86140; 87081; 87086; 89050; 93005; 99285; J2405; J2765

== ENCOUNTER 2017-03-30 12:57 | Inpatient (IN) | payer MEDICARE, OTHER ==
[~2017-03-30] VITALS: Ht 175.3 cm; Wt 139.7 kg
[~2017-03-30 12:57] MED LIST changes: +AMBIEN5 MG ORAL; +ATIVAN4 MG/1 ML PO; +HALDOL5 MG/1 ML PO; +OXYCODONE HCL20 M1 ORAL
[2017-03-30 13:30] VITALS: BP 139/99
[2017-03-30] MEDS ORDERED: DiphenhydrAMINE 50mg/ml Inj IVP ONE (13:30)
[2017-03-30] MEDS ORDERED: HYDROmorphone 1mg/ml Carpuject IVP ONE (13:30)
--- NOTE | 2017-03-30 14:02 | Diagnostic Imaging Report ---
Indication: Cough Technique: One view of the chest Comparison: 01/08/2017 Findings: The heart is borderline enlarged. Lungs and pleural spaces are clear. There is a left arm PICC now present. No significant interim change Impression: No acute process
[2017-03-30 14:04] LABS: EOSINOPHILS % (AUTO) 0.8 % (0.0-3.0); HEMATOCRIT 43.9 % (42.0-52.0); HEMOGLOBIN 15.1 G/DL (14.2-18.0); LYMPHOCYTES % (AUTO) 19.1 % (20.0-45.0); MEAN CORPUSCULAR VOLUME 92 FL (80-99); MONOCYTES % (AUTO) 6.1 % (1.0-10.0); PLATELET COUNT 361 K/UL (150-450); RED BLOOD COUNT 4.75 M/UL (4.70-6.10); WHITE BLOOD COUNT 11.5 K/UL (4.8-10.8)
[2017-03-30 14:07] LABS: ANION GAP 13 mmol/L (5-15); BLOOD UREA NITROGEN 8 mg/dL (7-18); CALCIUM 9.8 MG/DL (8.5-10.1); CARBON DIOXIDE 24 MMOL/L (21-32); CHLORIDE 101 MMOL/L (98-107); CREATININE 0.6 MG/DL (0.55-1.30); POTASSIUM 4.4 MMOL/L (3.5-5.1); SODIUM 138 MMOL/L (136-145)
[2017-03-30 14:17] LABS: ALANINE AMINOTRANSFERASE 64 U/L (12-78); ALBUMIN/GLOBULIN RATIO 1.2 (1.0-2.7); ALKALINE PHOSPHATASE 183 U/L (46-116); ASPARTATE AMINO TRANSFERASE 26 U/L (15-37); BILIRUBIN,TOTAL 0.4 MG/DL (0.2-1.0); CREATINE KINASE 86 U/L (26-308)
[2017-03-30] MEDS ORDERED: fentaNYL 100 mcg/2 mL IV ONE ×2 (15:00→16:15)
[2017-03-30 15:29] VITALS: BP 125/88
--- NOTE | 2017-03-30 16:54 | Emergency Room Report ---
History of Present Illness General Chief Complaint: Pain Source: Patient Present Illness HPI Patient presents with pain from osteosarcoma out of control. Presents with long list of multiple optiates which he states have not been controlling the pain. He also has some loose stools. Abdominal cramping less than leg and back pain. Seen by his PMD and sent to have pain controlled. Ne denies fever, chest pain, cough. Osteosarcoma treated with chem and RT in past. Discharged 01/12/2017 with these diagnoses: 1. Leukocytosis. 2. Possible urinary tract infection. 3. Opiate withdrawal. 4. Chronic pain syndrome with opiate dependence. 5. Osteosarcoma of the femur. 6. Posttraumatic stress disorder. 7. Bipolar 2 disorder. 8. Chronic obstructive pulmonary disease. 9. Congestive heart failure. 10. Morbid obesity. 11. Chronic diarrhea. 12. Seizure disorder. 13. Proteinuria. 14. Hypertension. 15. Hepatitis C history. 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 Allergies: Coded Allergies: KETOROLAC (Verified Allergy, Severe, 08/06/16) ASPIRIN (Verified Allergy, Intermediate, 08/06/16) CEPHALEXIN (Verified Allergy, Mild, 12/13/14) FISH DERIVED (Unverified Allergy, Unknown, 08/29/16) PEANUT (Verified Allergy, Unknown, 11/19/15) Uncoded Allergies: fish (Allergy, Unknown, 08/12/16) Patient History Past Medical History: see triage record Social History Narrative Nursing Documentation-PMH Hx Cardiac Problems: Yes Hx Hypertension: Yes Hx Asthma: Yes Hx COPD: Yes Hx Diabetes: Yes Hx Cancer: Yes - sarcoma right femur and back Hx Gastrointestinal Problems: Yes Hx Neurological Problems: Yes - mononeuritis Hx Encephalitis: Yes Hx Seizures: Yes Physical Exam Vital Signs Date Time Temp Pulse Resp B/P (MAP) Pulse Ox O2 Delivery O2 Flow Rate FiO2 03/30/17 13:01 97.9 110 20 141/101 94 Room Air Sp02 EP Interpretation: reviewed, abnormal - interpreted as low by me General Appearance: well appearing, GCS 15, mild distress, obese Head: normocephalic, atraumatic Eyes: bilateral eye normal inspection, bilateral eye PERRL ENT: moist mucus membranes Neck: supple Respiratory: lungs clear, normal breath sounds Cardiovascular #1: regular rate, rhythm Cardiovascular #2: 2+ radial (R) Gastrointestinal: normal inspection, normal bowel sounds, non tender, no mass, non-distended, overweight Musculoskeletal: gait/station normal, normal range of motion, other - some R lumbar tenderness Neurologic: oriented x3, DTRs symmetric, sensory intact, cerebellar normal, speech normal, motor weakness - RLE, both flexion and extension of foot (claims old) Psychiatric: other - pressured by reported pain Skin: normal inspection, warm/dry Medical Decision Making Diagnostic Impression: Primary Impression: Intractable pain Additional Impressions: Osteosarcoma of femur Qualified Codes: C40.21 - Malignant neoplasm of long bones of right lower limb Opiate dependence Qualified Codes: F11.29 - Opioid dependence with unspecified opioid-induced disorder ER Course Patient with osteosarcoma presents with severe pain after stopping meds. DDx: opiate withdrawal, exacerbation of pain of osteosarcoma, occult infection amongst others. Evaluation with EKG, CXR and labs. Treatment with IV hydration and aggressive analgesia. Denies chest pain. O2 sats chronically low probably COPD. Denies chest pain, so PE less likely. EKG without injury. CXR no infiltrate. Labs with elevated WBC, normal H/H and CMP. Patient requiring high doses of analgesics. Seem to be helping, then states pain again out of control. Admit med, Dr. oFy. Laboratory Tests Test 03/30/17 13:30 White Blood Count 11.5 K/UL (4.8-10.8) H Red Blood Count 4.75 M/UL (4.70-6.10) Hemoglobin 15.1 G/DL (14.2-18.0) Hematocrit 43.9 % (42.0-52.0) Mean Corpuscular Volume 92 FL (80-99) Mean Corpuscular Hemoglobin 31.8 PG (27.0-31.0) H Mean Corpuscular Hemoglobin Concent 34.4 G/DL (32.0-36.0) Red Cell Distribution Width 12.0 % (11.6-14.8) Platelet Count 361 K/UL (150-450) Mean Platelet Volume 6.7 FL (6.5-10.1) Neutrophils (%) (Auto) 73.0 % (45.0-75.0) Lymphocytes (%) (Auto) 19.1 % (20.0-45.0) L Monocytes (%) (Auto) 6.1 % (1.0-10.0) Eosinophils (%) (Auto) 0.8 % (0.0-3.0) Basophils (%) (Auto) 1.0 % (0.0-2.0) Prothrombin Time 10.0 SEC (9.30-11.50) Prothrombin Time INR 1.0 (0.9-1.1) PTT 25 SEC (23-33) Sodium Level 138 MMOL/L (136-145) Potassium Level 4.4 MMOL/L (3.5-5.1) Chloride Level 101 MMOL/L (98-107) Carbon Dioxide Level 24 MMOL/L (21-32) Anion Gap 13 mmol/L (5-15) Blood Urea Nitrogen 8 mg/dL (7-18) Creatinine 0.6 MG/DL (0.55-1.30) Estimate Glomerular Filtration Rate > 60 mL/min (>60) Glucose Level 128 MG/DL (74-106) H Lactic Acid Level 1.40 mmol/L (0.66-2.22) Calcium Level 9.8 MG/DL (8.5-10.1) Magnesium Level 2.1 MG/DL (1.8-2.4) Total Bilirubin 0.4 MG/DL (0.2-1.0) Aspartate Amino Transferase (AST) 26 U/L (15-37) Alanine Aminotransferase (ALT) 64 U/L (12-78) Alkaline Phosphatase 183 U/L (46-116) H Total Creatine Kinase 86 U/L (26-308) Troponin I 0.000 ng/mL (0.000-0.056) Pro-B-Type Natriuretic Peptide 31 pg/mL (0-125) Total Protein 7.4 G/DL (6.4-8.2) Albumin 4.0 G/DL (3.4-5.0) Globulin 3.4 g/dL Albumin/Globulin Ratio 1.2 (1.0-2.7) Lipase 68 U/L (73-393) L Microbiology Date/Time Source Procedure Growth Status 03/30/17 13:30 Nasal Nares Influenza Types A,B Antigen (ADAM) - Final Complete EKG Diagnostic Results Rate: tachycardiac Rhythm: NSR ST Segments: no acute changes Rhythm Strip Diag. Results EP Interpretation: yes Rhythm: no PVC's, no ectopy, other - ST Chest X-Ray Diagnostic Results Chest X-Ray Diagnostic Results : Chest X-Ray Ordered: Yes # of Views/Limited/Complete: 1 View Indication: Other EP Interpretation: Yes Interpretation: no consolidation, no effusion, no pneumothorax, other - borderline inc cor Impression: No acute disease Electronically Signed by: Raul Sarabia MD Last Vital Signs Date Time Temp Pulse Resp B/P (MAP) Pulse Ox O2 Delivery O2 Flow Rate FiO2 03/30/17 20:34 98.1 99 18 151/99 98 Room Air Status: improved Disposition: ADMITTED INPATIENT Condition: Serious Referrals: MARQUEZ FOY (PCP) Raul Sarabia M.D. Mar 30, 2017 16:54
[2017-03-30 19:22] VITALS: BP 151/99
[2017-03-30 20:00] VITALS: BP 156/93
[2017-03-30] MEDS ORDERED: Zolpidem 5mg tab ORAL PRN ×3 (21:15→22:00)
[2017-03-30] MEDS ORDERED: Nitroglycerin Subl 0.4mg tab SL PRN (21:15)
[2017-03-30] MEDS ORDERED: Milk of Magnesia 30ml Ud ORAL PRN (21:15)
[2017-03-30] MEDS ORDERED: LORazepam 1mg tab ORAL PRN (21:15)
[2017-03-30] MEDS ORDERED: Albuterol/Ipratropium 3ml neb HHN PRN (21:15)
[2017-03-30] MEDS ORDERED: Albuterol ud Inhalation HHN PRN (21:15)
[2017-03-30] MEDS ORDERED: Miralax 17gm pkt ORAL PRN (22:00)
[2017-03-30] MEDS ORDERED: Morphine Sulfate 2mg/ml Inj IVP PRN (22:00)
[2017-03-30] MEDS ORDERED: Mylanta II UD 30ml ORAL PRN (22:00)
[2017-03-30] MEDS ORDERED: oxyCODONE 5mg IR tab ORAL PRN (22:00)
[2017-03-30] MEDS: HYDROmorphone 1mg/ml Carpuject IVP PRN (23:16)
[2017-03-30] MEDS: Enoxaparin 40mg Inj SUBQ SCH (23:22)
[2017-03-31] VITALS: BP 146/94
[2017-03-31] MEDS: Morphine Sulfate 4mg/ml Inj IVP PRN ×2 (00:58→06:55)
[2017-03-31] MEDS: HYDROmorphone 1mg/ml Carpuject IVP PRN (03:35)
[2017-03-31] MEDS: LORazepam Inj 2mg/ml 1ml IV PRN ×2 (04:17→21:34)
[2017-03-31] MEDS ORDERED: Naloxone 0.4mg/ml Inj IV PRN (09:00)
[2017-03-31] MEDS ORDERED: Heparin 5000 units/ml inj SUBQ SCH (09:00)
--- NOTE | 2017-03-31 09:05 | General Progress Note ---
Assessment/Plan Assessment/Plan (1) Osteosarcoma of femur (2) Morbid obesity (3) Chronic pain syndrome Pt will be started on Fentanyl patch 25mcg/hr Q72 hrs, Oxycodone 10mg po 1 tab Q4H PRN mod pain and Dilaudid 2mg IV Q3H PRN severe pain. Pt was d/w Dr. Muhammad and he concurred. Thank you for the courtesy of this consultation. Subjective Date patient seen: Mar 31, 2017 Time patient seen: 07:15 - am Allergies: Coded Allergies: KETOROLAC (Verified Allergy, Severe, 08/06/16) ASPIRIN (Verified Allergy, Intermediate, 08/06/16) CEPHALEXIN (Verified Allergy, Mild, 12/13/14) FISH DERIVED (Unverified Allergy, Unknown, 08/29/16) PEANUT (Verified Allergy, Unknown, 11/19/15) Uncoded Allergies: fish (Allergy, Unknown, 08/12/16) Subjective REVIEW OF SYSTEMS: Denies rash, fever, chills, sweating, dizziness, drowsiness, blurred vision, sore throat, change in weight. No chest pain. He is complaining of low back and lower extremity pain. SUBJECTIVE: Patient is a known patient and was recently seen in [facility] where he signed out AMA and now has been admitted under the care of Dr. Wallace. He is in severe pain and not tolerated on the current medications. Objective Last 24 Hour Vital Signs Date Time Temp Pulse Resp B/P (MAP) Pulse Ox O2 Delivery O2 Flow Rate FiO2 03/31/17 00:00 98.1 83 19 146/94 91 Room Air 03/30/17 20:34 98.1 99 18 151/99 98 Room Air 03/30/17 20:00 98.1 95 20 156/93 91 Room Air 03/30/17 19:22 98.1 99 18 151/99 98 Room Air 03/30/17 15:29 98.3 114 24 125/88 95 Room Air 03/30/17 13:30 98.0 108 18 139/99 95 Room Air 03/30/17 13:01 97.9 110 20 141/101 94 Room Air Intake and Output 03/30/17 03/31/17 19:00 07:00 Intake Total 1000 ml Output Total 0 ml Balance 1000 ml 0 ml Intake IV Total 1000 ml Output Urine Total 0 ml Stool Total 0 ml # Voids 1 Laboratory Tests 03/30/17 13:30: White Blood Count 11.5H, Red Blood Count 4.75, Hemoglobin 15.1, Hematocrit 43.9 , Mean Corpuscular Volume 92, Mean Corpuscular Hemoglobin 31.8H, Mean Corpuscular Hemoglobin Concent 34.4, Red Cell Distribution Width 12.0, Platelet Count 361, Mean Platelet Volume 6.7, Neutrophils (%) (Auto) 73.0, Lymphocytes (% ) (Auto) 19.1L, Monocytes (%) (Auto) 6.1, Eosinophils (%) (Auto) 0.8, Basophils (%) (Auto) 1.0, Prothrombin Time 10.0, Prothromb Time International Ratio 1.0, Activated Partial Thromboplast Time 25, Sodium Level 138, Potassium Level 4.4, Chloride Level 101, Carbon Dioxide Level 24, Anion Gap 13, Blood Urea Nitrogen 8 , Creatinine 0.6, Estimat Glomerular Filtration Rate > 60, Glucose Level 128H, Lactic Acid Level 1.40, Calcium Level 9.8, Magnesium Level 2.1, Total Bilirubin 0.4, Aspartate Amino Transf (AST/SGOT) 26, Alanine Aminotransferase (ALT/SGPT) 64, Alkaline Phosphatase 183H, Total Creatine Kinase 86, Troponin I 0.000, Pro-B -Type Natriuretic Peptide 31, Total Protein 7.4, Albumin 4.0, Globulin 3.4, Albumin/Globulin Ratio 1.2, Lipase 68L Height (Feet): 5 Height (Inches): 9.00 Weight (Pounds): 270 Objective GENERAL: Alert and oriented x3. HEENT: PERRLA. NECK: Range of motion is full in all direction. No tenderness to paracervical muscles. No adenopathy. LUNGS: Decreased breath sounds bilaterally. HEART: Regular. ABDOMEN: Obese, tenderness to palpation BACK: Range of motion is decreased on flexion and extension with tenderness to paraspinal muscles. No tenderness to trapezius muscles. EXTREMITIES: No cyanosis, no clubbing, no edema. NEUROLOGICAL EXAM: Lower extremities range of motion is decreased due to patient's medical condition with motor being 4/5 in all muscles bilaterally. LIA HAGEN Mar 31, 2017 09:05
[2017-03-31] MEDS: Relistor 12mg/0.6ml Vial SUBQ SCH (10:30)
[2017-03-31] MEDS: Phenytoin Susp 100mg/4ml ORAL SCH (11:10)
[2017-03-31] MEDS: Lisinopril 20mg tab ORAL SCH (11:12)
[2017-03-31] MEDS: Depakote ER 500mg tab ORAL SCH ×2 (11:12→20:32)
[2017-03-31] MEDS: Docusate 100mg cap ORAL SCH ×2 (11:13→20:32)
[2017-03-31 12:00] VITALS: BP 152/102
[2017-03-31 13:37] LABS: BASOPHILS % (AUTO) 0.9 % (0.0-2.0); HEMOGLOBIN 11.5 G/DL (14.2-18.0); LYMPHOCYTES % (AUTO) 30.9 % (20.0-45.0); MEAN CORPUSCULAR VOLUME 93 FL (80-99); MONOCYTES % (AUTO) 7.6 % (1.0-10.0); NEUTROPHILS % (AUTO) 58.6 % (45.0-75.0); PLATELET COUNT 206 K/UL (150-450); RED BLOOD COUNT 3.66 M/UL (4.70-6.10); RED CELL DISTRIBUTION WIDTH 12.1 % (11.6-14.8); WHITE BLOOD COUNT 7.4 K/UL (4.8-10.8)
[2017-03-31 14:03] LABS: ALANINE AMINOTRANSFERASE 44 U/L (12-78); ALBUMIN 2.4 G/DL (3.4-5.0); ALBUMIN/GLOBULIN RATIO 0.9 (1.0-2.7); ALKALINE PHOSPHATASE 122 U/L (46-116); ANION GAP 10 mmol/L (5-15); ASPARTATE AMINO TRANSFERASE 19 U/L (15-37); BILIRUBIN,TOTAL 0.2 MG/DL (0.2-1.0); BLOOD UREA NITROGEN 7 mg/dL (7-18); CALCIUM 7.3 MG/DL (8.5-10.1); CARBON DIOXIDE 22 MMOL/L (21-32); CHLORIDE 109 MMOL/L (98-107); CHOLESTEROL 185 MG/DL (< 200); CREATININE 0.5 MG/DL (0.55-1.30); HDL CHOLESTEROL 25 MG/DL (40-60); POTASSIUM 3.2 MMOL/L (3.5-5.1); SODIUM 141 MMOL/L (136-145); TRIGLYCERIDES 252 MG/DL (30-150)
--- NOTE | 2017-03-31 14:33 | Cardiac Electrophysiology PN ---
Assessment/Plan Assessment/Plan 1. Tachycardia due to sinus tach due to pain of osteosarcoma. Will get TFT and echo 2. HTN On Lisinopril 20 daily 3. Osteosarcoma S/P RT and chemo 4. Obesity. Subjective Subjective Cardiology consult CC: 41 year old WM with hx of Righ thigh osteosarcoma, presented with out of control pain despite multiple optiates which he states have not been controlling the pain. Also had loose stools and abdominal cramping.Seen by his PMD and sent to have pain controlled.Also was tachycardic.Denies fever, chest pain, cough.Osteosarcoma treated with chem and RT in past by Dr Cao. PMH: 1. Leukocytosis. 2. Possible urinary tract infection. 3. Opiate withdrawal. 4. Chronic pain syndrome with opiate dependence. 5. Osteosarcoma of the femur. 6. Posttraumatic stress disorder. 7. Bipolar 2 disorder. 8. Chronic obstructive pulmonary disease. 9. Congestive heart failure. 10. Morbid obesity. 11. Chronic diarrhea. 12. Seizure disorder. 13. Proteinuria. 14. Hypertension. 15. Hepatitis C history. 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 Allergies: Coded Allergies: KETOROLAC (Verified Allergy, Severe, 08/06/16) ASPIRIN (Verified Allergy, Intermediate, 08/06/16) CEPHALEXIN (Verified Allergy, Mild, 12/13/14) FISH DERIVED (Unverified Allergy, Unknown, 08/29/16) PEANUT (Verified Allergy, Unknown, 11/19/15) Objective Last 24 Hour Vital Signs Date Time Temp Pulse Resp B/P (MAP) Pulse Ox O2 Delivery O2 Flow Rate FiO2 03/31/17 12:00 97.2 85 21 152/102 95 03/31/17 11:46 97.2 03/31/17 11:46 97.2 03/31/17 11:12 152/102 03/31/17 11:12 85 152/102 03/31/17 07:40 88 18 Room Air 21 03/31/17 00:00 98.1 83 19 146/94 91 Room Air 03/30/17 20:34 98.1 99 18 151/99 98 Room Air 03/30/17 20:00 98.1 95 20 156/93 91 Room Air 03/30/17 19:22 98.1 99 18 151/99 98 Room Air 03/30/17 15:29 98.3 114 24 125/88 95 Room Air General Appearance: WD/WN EENT: PERRL/EOMI Neck: no JVD Rhythm: NSR Cardiovascular: normal rate, regular rhythm, tachycardia Respiratory/Chest: normal breath sounds, no respiratory distress Abdomen: soft Extremities: non-pitting 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 Intake and Output 03/30/17 03/31/17 19:00 07:00 Intake Total 1000 ml Output Total 0 ml Balance 1000 ml 0 ml Intake IV Total 1000 ml Output Urine Total 0 ml Stool Total 0 ml # Voids 1 Laboratory Tests Test 03/31/17 13:05 White Blood Count 7.4 K/UL (4.8-10.8) Red Blood Count 3.66 M/UL (4.70-6.10) L Hemoglobin 11.5 G/DL (14.2-18.0) L Hematocrit 34.0 % (42.0-52.0) L Mean Corpuscular Volume 93 FL (80-99) Mean Corpuscular Hemoglobin 31.3 PG (27.0-31.0) H Mean Corpuscular Hemoglobin Concent 33.7 G/DL (32.0-36.0) Red Cell Distribution Width 12.1 % (11.6-14.8) Platelet Count 206 K/UL (150-450) Mean Platelet Volume 6.9 FL (6.5-10.1) Neutrophils (%) (Auto) 58.6 % (45.0-75.0) Lymphocytes (%) (Auto) 30.9 % (20.0-45.0) Monocytes (%) (Auto) 7.6 % (1.0-10.0) Eosinophils (%) (Auto) 2.0 % (0.0-3.0) Basophils (%) (Auto) 0.9 % (0.0-2.0) Sodium Level 141 MMOL/L (136-145) Potassium Level 3.2 MMOL/L (3.5-5.1) L Chloride Level 109 MMOL/L (98-107) H Carbon Dioxide Level 22 MMOL/L (21-32) Anion Gap 10 mmol/L (5-15) Blood Urea Nitrogen 7 mg/dL (7-18) Creatinine 0.5 MG/DL (0.55-1.30) L Estimat Glomerular Filtration Rate > 60 mL/min (>60) Glucose Level 126 MG/DL (74-106) H Calcium Level 7.3 MG/DL (8.5-10.1) #L Total Bilirubin 0.2 MG/DL (0.2-1.0) Aspartate Amino Transf (AST/SGOT) 19 U/L (15-37) Alanine Aminotransferase (ALT/SGPT) 44 U/L (12-78) Alkaline Phosphatase 122 U/L (46-116) H Total Protein 5.1 G/DL (6.4-8.2) #L Albumin 2.4 G/DL (3.4-5.0) L Globulin 2.7 g/dL Albumin/Globulin Ratio 0.9 (1.0-2.7) L Triglycerides Level 252 MG/DL (30-150) H Cholesterol Level 185 MG/DL (< 200) LDL Cholesterol 121 mg/dL (<100) H HDL Cholesterol 25 MG/DL (40-60) L Cholesterol/HDL Ratio 7.4 (3.3-4.4) H Thyroid Stimulating Hormone (TSH) 1.544 uiU/mL (0.358-3.740) Microbiology Date/Time Source Procedure Growth Status 03/30/17 13:30 Nasal Nares Influenza Types A,B Antigen (ADAM) - Final Complete GAEL MAXWELL Mar 31, 2017 14:33
[2017-03-31] MEDS ORDERED: Sterile Water Irrig 1000ml IRRIG ONE (15:32)
[2017-03-31] MEDS ORDERED: 1/2 NS 1000ml IV ONE (15:32)
[2017-03-31 16:00] VITALS: BP 138/81
[2017-03-31] MEDS: oxyCODONE 5mg IR tab ORAL PRN (16:20)
--- NOTE | 2017-03-31 19:00 | Cardiology Report ---
APPROVED REPORT EKG Measurement Heart [id number] Sinus tachycardia Otherwise normal ECG
--- NOTE | 2017-03-31 19:17 | Consultation ---
History of Present Illness General Date patient seen: Mar 31, 2017 Chief Complaint: Osteosarcoma with severe pain Referring physician: Dr. Singh Reason for Consultation: Internal medicine management of severe pain Present Illness HPI Patient is a 41 yo man with pmhx osteosarcoma of the femur, opiate dependence and withdrawal, posttraumatic stress disorder, bipolar disorder type 2, COPD, CHF, HTN, hepatitis C, seizure disorder and morbid obesity presents to [facility] emergency room with complaint of severe right leg pain he is attributing to his cancer namely osteosarcoma of his femur. Patient says he does not have any pain medicine and the pain in his right leg is excrutiating he seeks medical assistance. I was asked to assist in the internal medicine management of this patients serious medical condition. Allergies: Coded Allergies: KETOROLAC (Verified Allergy, Severe, 08/06/16) ASPIRIN (Verified Allergy, Intermediate, 08/06/16) CEPHALEXIN (Verified Allergy, Mild, 12/13/14) FISH DERIVED (Unverified Allergy, Unknown, 08/29/16) PEANUT (Verified Allergy, Unknown, 11/19/15) Uncoded Allergies: fish (Allergy, Unknown, 08/12/16) Medication History Scheduled Amitriptyline HCl (Elavil*), 25 MG ORAL BEDTIME, (Reported) Amlodipine Besylate (Norvasc), 10 MG ORAL DAILY, (Reported) Carbamazepine (Tegretol*), 300 MG PO Q12HR, (Reported) Divalproex Sodium* (Depakote Er*), 1,000 MG ORAL EVERY 12 HOURS, (Reported) Fentanyl 100MCG Patch* (Fentanyl 100MCG Patch*), 1 PATCH TDERMAL EVERY 72 HOURS, (Reported) Fluoxetine Hcl* (Prozac*), 20 MG ORAL DAILY, (Reported) Haloperidol Lactate (Haldol), 5 MG PO BID, (Reported) Levofloxacin* (Levaquin*), 500 MG ORAL DAILY, (Reported) Lisinopril (Lisinopril*), 20 MG ORAL DAILY, (Reported) Lorazepam (Ativan), 2 MG PO Q8HR, (Reported) Methylprednisolone (Methylprednisolone*), 4 MG IV Q12HR, (Reported) Phenytoin (Dilantin-125), 250 MG PO DAILY, (Reported) Quetiapine Fumarate* (Seroquel*), 100 MG ORAL QHS, (Reported) Topiramate* (Topamax*), 50 MG ORAL TWICE A DAY, (Reported) Trazodone* (Trazodone*), 100 MG ORAL BEDTIME, (Reported) Scheduled PRN Acetaminophen* (Acetaminophen 325MG Tablet*), 650 MG ORAL Q6H PRN for Mild Pain/ Temp > 100.5, (Reported) Calcium Carbonate (Calcium), 500 MG ORAL Q4HR PRN for Per rx protocol, (Reported ) Hydromorphone HCl/Pf (Dilaudid 2 Mg/Ml Syringe), 2 MG IV Q4HR PRN for For Pain, (Reported) Morphine Sulfate/Pf (Morphine 1 mg/2 ml Syringe), 4 MG IV Q4HR PRN for For Pain, (Reported) Naloxone Hcl (Naloxone Hcl*), 0.4 MG IV for sedation, (Reported) Nitroglycerin (Nitroglycerin), 0.4 MG SL q5minx 3doses PRN for chest pain, ( Reported) Ondansetron Odt* (Zofran Odt*), 4 MG ORAL Q4HR PRN for Nausea & Vomiting, ( Reported) Oxycodone Hcl (Oxycodone Hcl), 10 MG ORAL Q6H PRN for For Pain, (Reported) Oxycodone Hcl Ir* (Roxicodone Ir*), 10 MG ORAL Q6H PRN for For Pain, (Reported) Polyethylene Glycol 3350* (Polyethylene Glycol 3350*), 17 GM ORAL BEDTIME PRN for Constipation, (Reported) Promethazine HCl/Codeine (Prometh-Codein 6.25-10 mg/5 ml), 5 ML PO Q6HR PRN for For Cough, (Reported) Temazepam* (Temazepam*), 15 MG ORAL BEDTIME PRN for Insomnia, (Reported) Zolpidem Tartrate* (Ambien*), 5 MG ORAL BEDTIME PRN for Insomnia, (Reported) Patient History Healthcare decision maker Resuscitation status Full Code Advanced Directive on File Review of Systems Musculoskeletal: Reports: back pain, joint swelling, muscle pain, muscle stiffness Physical Exam General Appearance: mild distress, morbidly obese Lines, tubes and drains: peripheral HEENT: normocephalic, atraumatic, anicteric, PERRL Neck: non-tender, normal alignment, supple, normal inspection Respiratory/Chest: chest wall non-tender, lungs clear, normal breath sounds, no respiratory distress, no accessory muscle use Breasts: no masses Cardiovascular/Chest: normal peripheral pulses, normal rate, regular rhythm, no JVD Abdomen: normal bowel sounds, non tender, soft, no organomegaly, no mass Genitourinary/Rectal: normal genital exam, normal rectal exam Extremities: normal range of motion, non-tender, normal inspection, no calf tenderness, normal capillary refill Skin Exam: normal pigmentation, warm/dry 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, no motor/sensory deficits Last 24 Hour Vital Signs Date Time Temp Pulse Resp B/P (MAP) Pulse Ox O2 Delivery O2 Flow Rate FiO2 03/31/17 18:18 98.1 03/31/17 16:00 98.1 83 20 138/81 95 03/31/17 12:00 97.2 85 21 152/102 95 03/31/17 11:46 97.2 03/31/17 11:12 152/102 03/31/17 11:12 85 152/102 03/31/17 07:40 88 18 Room Air 21 03/31/17 00:00 98.1 83 19 146/94 91 Room Air 03/30/17 20:34 98.1 99 18 151/99 98 Room Air 03/30/17 20:00 98.1 95 20 156/93 91 Room Air 03/30/17 19:22 98.1 99 18 151/99 98 Room Air Intake and Output 03/30/17 03/31/17 19:00 07:00 Intake Total 1000 ml Output Total 0 ml Balance 1000 ml 0 ml IV Total 1000 ml Output Urine Total 0 ml Stool Total 0 ml # Voids 1 Laboratory Tests Test 03/31/17 13:05 White Blood Count 7.4 K/UL (4.8-10.8) Red Blood Count 3.66 M/UL (4.70-6.10) L Hemoglobin 11.5 G/DL (14.2-18.0) L Hematocrit 34.0 % (42.0-52.0) L Mean Corpuscular Volume 93 FL (80-99) Mean Corpuscular Hemoglobin 31.3 PG (27.0-31.0) H Mean Corpuscular Hemoglobin Concent 33.7 G/DL (32.0-36.0) Red Cell Distribution Width 12.1 % (11.6-14.8) Platelet Count 206 K/UL (150-450) Mean Platelet Volume 6.9 FL (6.5-10.1) Neutrophils (%) (Auto) 58.6 % (45.0-75.0) Lymphocytes (%) (Auto) 30.9 % (20.0-45.0) Monocytes (%) (Auto) 7.6 % (1.0-10.0) Eosinophils (%) (Auto) 2.0 % (0.0-3.0) Basophils (%) (Auto) 0.9 % (0.0-2.0) Sodium Level 141 MMOL/L (136-145) Potassium Level 3.2 MMOL/L (3.5-5.1) L Chloride Level 109 MMOL/L (98-107) H Carbon Dioxide Level 22 MMOL/L (21-32) Anion Gap 10 mmol/L (5-15) Blood Urea Nitrogen 7 mg/dL (7-18) Creatinine 0.5 MG/DL (0.55-1.30) L Estimat Glomerular Filtration Rate > 60 mL/min (>60) Glucose Level 126 MG/DL (74-106) H Calcium Level 7.3 MG/DL (8.5-10.1) #L Total Bilirubin 0.2 MG/DL (0.2-1.0) Aspartate Amino Transf (AST/SGOT) 19 U/L (15-37) Alanine Aminotransferase (ALT/SGPT) 44 U/L (12-78) Alkaline Phosphatase 122 U/L (46-116) H Total Protein 5.1 G/DL (6.4-8.2) #L Albumin 2.4 G/DL (3.4-5.0) L Globulin 2.7 g/dL Albumin/Globulin Ratio 0.9 (1.0-2.7) L Triglycerides Level 252 MG/DL (30-150) H Cholesterol Level 185 MG/DL (< 200) LDL Cholesterol 121 mg/dL (<100) H HDL Cholesterol 25 MG/DL (40-60) L Cholesterol/HDL Ratio 7.4 (3.3-4.4) H Thyroid Stimulating Hormone (TSH) 1.544 uiU/mL (0.358-3.740) Height (Feet): 5 Height (Inches): 9.00 Weight (Pounds): 270 Medications Current Medications Medications (Trade) Dose Ordered Sig/Robert Route PRN Reason Start Time Stop Time Status Last Admin Dose Admin Acetaminophen (Tylenol) 650 mg Q4H PRN ORAL fever 03/30/17 21:15 04/29/17 21:14 Al Hydroxide/Mg Hydroxide (Mylanta II) 30 ml Q6H PRN ORAL dyspepsia 03/30/17 22:00 04/29/17 21:59 Albuterol Sulfate (Proventil) 2.5 mg Q6H PRN HHN Persistent Shortness of Breath 03/30/17 21:15 04/04/17 21:14 Albuterol/ Ipratropium (Albuterol/ Ipratropium) 3 ml QIDPRN PRN HHN Shortness of Breath 03/30/17 21:15 04/04/17 21:14 Amitriptyline HCl (Elavil) 25 mg BEDTIME ORAL 03/31/17 21:00 04/30/17 20:59 Future Hold Amlodipine Besylate (Norvasc) 10 mg DAILY ORAL 03/31/17 09:00 04/30/17 08:59 03/31/17 11:12 Baclofen (Lioresal) 10 mg Q8H PRN ORAL muscle spasm 03/31/17 09:00 04/30/17 08:59 Chlorhexidine Gluconate (Babita-Hex 2%) 1 applic DAILY@2000 TOPIC 03/31/17 20:00 04/30/17 19:59 Dextrose (Dextrose 50%) STAT PRN IV Hypoglycemia 03/30/17 21:15 04/29/17 21:14 Divalproex Sodium (Depakote ER) 1,000 mg EVERY 12 HOURS ORAL 03/31/17 09:00 04/30/17 08:59 03/31/17 11:12 Docusate Sodium (Colace) 100 mg EVERY 12 HOURS ORAL 03/31/17 09:00 04/30/17 08:59 03/31/17 11:13 Enoxaparin Sodium (Lovenox) 40 mg QHS SUBQ 03/30/17 22:00 04/29/17 21:59 03/30/17 23:22 Fentanyl (Duragesic) 1 patch Q72H TDERMAL 03/31/17 11:00 2/7/18 10:59 03/31/17 11:46 Gabapentin (Neurontin) 300 mg THREE TIMES A DAY ORAL 03/31/17 10:30 04/30/17 10:29 03/31/17 19:02 Hydromorphone HCl (Dilaudid) 2 mg Q3H PRN IVP Severe Pain (Pain Scale 7-10) 03/31/17 09:15 04/06/17 21:14 03/31/17 17:41 Lisinopril (Prinivil) 20 mg DAILY ORAL 03/31/17 09:00 04/30/17 08:59 03/31/17 11:12 Lorazepam (Ativan 2mg/ml 1ml) 0.5 mg Q4H PRN IV For Anxiety 03/30/17 22:00 04/06/17 21:59 03/31/17 04:17 Lorazepam (Ativan) 1 mg Q4H PRN ORAL For Anxiety 03/30/17 21:15 04/06/17 21:14 Magnesium Hydroxide (Mom) 30 ml HSPRN PRN ORAL Constipation 03/30/17 21:15 04/29/17 21:14 Methylnaltrexone Vergas (Relistor) 12 mg QOD SUBQ 03/31/17 10:30 04/30/17 10:29 Miscellaneous Medication (fentaNYL Destruction) 1 ea Q72H MISC 04/03/17 11:00 05/03/17 10:59 Naloxone HCl (Narcan) 0.1 mg PRN IV Sedation scale 3 or 4 03/31/17 09:00 Nicotine (Nicoderm) 1 patch Q24H TDERMAL 03/31/17 17:00 04/30/17 16:59 Nitroglycerin (Ntg) 0.4 mg Q5M X 3 DOSES PRN SL Prn Chest Pain 03/30/17 21:15 04/29/17 21:14 Ondansetron HCl (Zofran) 4 mg Q6H PRN IVP Nausea & Vomiting 03/30/17 21:15 04/29/17 21:14 Oxycodone HCl (Roxicodone) 10 mg Q4H PRN ORAL moderate breakthrough pain 03/31/17 09:00 04/07/17 08:59 03/31/17 16:20 Pantoprazole (Protonix) 40 mg DAILY ORAL 03/31/17 09:00 04/30/17 08:59 03/31/17 11:13 Phenytoin (Dilantin) 250 mg DAILY ORAL 03/31/17 09:00 04/30/17 08:59 03/31/17 11:10 Polyethylene Glycol (Miralax) 17 gm HSPRN PRN ORAL Constipation 03/30/17 22:00 04/29/17 21:59 Quetiapine Fumarate (SEROquel) 100 mg QHS ORAL 03/31/17 21:00 04/30/17 20:59 Sodium Chloride 1,000 ml @ 150 mls/hr Q6H40M IVLG 03/30/17 22:30 04/29/17 22:29 03/31/17 16:23 Trazodone HCl (Desyrel) 100 mg BEDTIME ORAL 03/31/17 21:00 04/30/17 20:59 Zolpidem Tartrate (Ambien) 5 mg HSPRN PRN ORAL Insomnia 03/30/17 21:15 04/06/17 21:14 Assessment/Plan Status: stable, progressing Assessment/Plan Osteosarcoma of femur with severe acute pain in lower extremity Chronic pain syndrome COPD PTSD CVA history HTN Nicotine dependency with withdrawal PLAN Pain management Pain specialist follows O2 HHN prn CXR negative 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
[2017-03-31 19:59] VITALS: BP 141/94
[2017-03-31] MEDS: TraZODone 100mg tab ORAL SCH (20:31)
[2017-03-31] MEDS: Dyna-Hex 2% Top Sol 2oz TOPIC SCH (20:31)
[2017-03-31] MEDS: Enoxaparin 40mg Inj SUBQ SCH (20:34)
[2017-04-01] VITALS: BP 132/78
[2017-04-01 04:00] VITALS: BP 150/85
[2017-04-01 08:15] VITALS: BP 119/72
[2017-04-01 08:44] LABS: BASOPHILS % (AUTO) 0.6 % (0.0-2.0); EOSINOPHILS % (AUTO) 2.2 % (0.0-3.0); HEMATOCRIT 37.4 % (42.0-52.0); HEMOGLOBIN 12.6 G/DL (14.2-18.0); LYMPHOCYTES % (AUTO) 32.9 % (20.0-45.0); MEAN CORPUSCULAR VOLUME 93 FL (80-99); MONOCYTES % (AUTO) 9.2 % (1.0-10.0); NEUTROPHILS % (AUTO) 55.1 % (45.0-75.0); PLATELET COUNT 213 K/UL (150-450); RED BLOOD COUNT 4.03 M/UL (4.70-6.10); RED CELL DISTRIBUTION WIDTH 12.3 % (11.6-14.8); WHITE BLOOD COUNT 7.6 K/UL (4.8-10.8)
[2017-04-01] MEDS: Depakote ER 500mg tab ORAL SCH ×2 (08:52→21:00)
[2017-04-01] MEDS: Docusate 100mg cap ORAL SCH ×2 (08:52→21:00)
[2017-04-01] MEDS: Phenytoin Susp 100mg/4ml ORAL SCH (08:53)
[2017-04-01] MEDS: Lisinopril 20mg tab ORAL SCH (08:54)
[2017-04-01 09:15] LABS: ANION GAP 9 mmol/L (5-15); BLOOD UREA NITROGEN 6 mg/dL (7-18); CALCIUM 8.5 MG/DL (8.5-10.1); CARBON DIOXIDE 25 MMOL/L (21-32); CHLORIDE 104 MMOL/L (98-107); CREATININE 0.6 MG/DL (0.55-1.30); POTASSIUM 3.6 MMOL/L (3.5-5.1); SODIUM 138 MMOL/L (136-145)
--- NOTE | 2017-04-01 11:01 | Cardiac Electrophysiology PN ---
Assessment/Plan Assessment/Plan 1. Tachycardia due to sinus tach due to pain of osteosarcoma.Echo pending 2. HTN On Lisinopril 20 daily 3. Osteosarcoma S/P RT and chemo 4. Obesity. Subjective Subjective Feeling better. Still has Right leg pain. Objective Last 24 Hour Vital Signs Date Time Temp Pulse Resp B/P (MAP) Pulse Ox O2 Delivery O2 Flow Rate FiO2 04/01/17 09:26 97.7 04/01/17 08:55 82 146/98 04/01/17 08:54 146/98 04/01/17 08:15 97.9 85 20 119/72 100 Room Air 04/01/17 07:01 77 20 Room Air 21 04/01/17 04:00 98.6 70 18 150/85 100 Room Air 04/01/17 00:00 97.7 83 18 132/78 94 03/31/17 21:20 76 18 Room Air 21 03/31/17 20:00 96 Room Air 03/31/17 19:59 98.1 75 18 141/94 96 03/31/17 16:00 98.1 83 20 138/81 95 03/31/17 12:00 97.2 85 21 152/102 95 03/31/17 11:46 97.2 03/31/17 11:12 152/102 03/31/17 11:12 85 152/102 Intake and Output 03/31/17 04/01/17 19:00 07:00 Intake Total 1400 ml 2300 ml Balance 1400 ml 2300 ml Intake Oral 1400 ml 700 ml IV Total 1600 ml # Voids 2 4 # Bowel Movements 1 Laboratory Tests Test 03/31/17 13:05 04/01/17 07:30 White Blood Count 7.4 K/UL (4.8-10.8) 7.6 K/UL (4.8-10.8) Red Blood Count 3.66 M/UL (4.70-6.10) L 4.03 M/UL (4.70-6.10) L Hemoglobin 11.5 G/DL (14.2-18.0) L 12.6 G/DL (14.2-18.0) L Hematocrit 34.0 % (42.0-52.0) L 37.4 % (42.0-52.0) L Mean Corpuscular Volume 93 FL (80-99) 93 FL (80-99) Mean Corpuscular Hemoglobin 31.3 PG (27.0-31.0) H 31.3 PG (27.0-31.0) H Mean Corpuscular Hemoglobin Concent 33.7 G/DL (32.0-36.0) 33.7 G/DL (32.0-36.0) Red Cell Distribution Width 12.1 % (11.6-14.8) 12.3 % (11.6-14.8) Platelet Count 206 K/UL (150-450) 213 K/UL (150-450) Mean Platelet Volume 6.9 FL (6.5-10.1) 7.0 FL (6.5-10.1) Neutrophils (%) (Auto) 58.6 % (45.0-75.0) 55.1 % (45.0-75.0) Lymphocytes (%) (Auto) 30.9 % (20.0-45.0) 32.9 % (20.0-45.0) Monocytes (%) (Auto) 7.6 % (1.0-10.0) 9.2 % (1.0-10.0) Eosinophils (%) (Auto) 2.0 % (0.0-3.0) 2.2 % (0.0-3.0) Basophils (%) (Auto) 0.9 % (0.0-2.0) 0.6 % (0.0-2.0) Sodium Level 141 MMOL/L (136-145) 138 MMOL/L (136-145) Potassium Level 3.2 MMOL/L (3.5-5.1) L 3.6 MMOL/L (3.5-5.1) Chloride Level 109 MMOL/L (98-107) H 104 MMOL/L (98-107) Carbon Dioxide Level 22 MMOL/L (21-32) 25 MMOL/L (21-32) Anion Gap 10 mmol/L (5-15) 9 mmol/L (5-15) Blood Urea Nitrogen 7 mg/dL (7-18) 6 mg/dL (7-18) L Creatinine 0.5 MG/DL (0.55-1.30) L 0.6 MG/DL (0.55-1.30) Estimat Glomerular Filtration Rate > 60 mL/min (>60) > 60 mL/min (>60) Glucose Level 126 MG/DL (74-106) H 171 MG/DL (74-106) H Calcium Level 7.3 MG/DL (8.5-10.1) #L 8.5 MG/DL (8.5-10.1) Total Bilirubin 0.2 MG/DL (0.2-1.0) Aspartate Amino Transf (AST/SGOT) 19 U/L (15-37) Alanine Aminotransferase (ALT/SGPT) 44 U/L (12-78) Alkaline Phosphatase 122 U/L (46-116) H Total Protein 5.1 G/DL (6.4-8.2) #L Albumin 2.4 G/DL (3.4-5.0) L Globulin 2.7 g/dL Albumin/Globulin Ratio 0.9 (1.0-2.7) L Triglycerides Level 252 MG/DL (30-150) H Cholesterol Level 185 MG/DL (< 200) LDL Cholesterol 121 mg/dL (<100) H HDL Cholesterol 25 MG/DL (40-60) L Cholesterol/HDL Ratio 7.4 (3.3-4.4) H Thyroid Stimulating Hormone (TSH) 1.544 uiU/mL (0.358-3.740) Microbiology Date/Time Source Procedure Growth Status 03/30/17 13:40 Blood Blood Culture - Preliminary NO GROWTH AFTER 24 HOURS Resulted 03/30/17 13:30 Blood Blood Culture - Preliminary NO GROWTH AFTER 24 HOURS Resulted 03/30/17 13:30 Nasal Nares Influenza Types A,B Antigen (ADAM) - Final Complete Objective General Appearance: WD/WN EENT: PERRL/EOMI Neck: no JVD Rhythm: NSR Cardiovascular: normal rate, regular rhythm, tachycardia Respiratory/Chest: normal breath sounds, no respiratory distress Abdomen: soft Extremities: non-pitting 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
[2017-04-01 12:00] VITALS: BP 134/87
--- NOTE | 2017-04-01 13:29 | General Progress Note ---
Assessment/Plan Problem List: (1) Chronic pain ICD Codes: G89.29 - Other chronic pain SNOMED: 28856084 (2) COPD (chronic obstructive pulmonary disease) ICD Codes: J44.9 - Chronic obstructive pulmonary disease, unspecified SNOMED: 31284783 (3) Psychiatric disorder ICD Codes: F99 - Mental disorder, not otherwise specified SNOMED: 34732938, 890640568 (4) PTSD (post-traumatic stress disorder) ICD Codes: F43.10 - Post-traumatic stress disorder, unspecified SNOMED: 56259436 (5) CVA (cerebral vascular accident) ICD Codes: I63.9 - Cerebral infarction, unspecified SNOMED: 856474631 (6) Intractable pain ICD Codes: R52 - Pain, unspecified SNOMED: 83784105 (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 - Malignant neoplasm of long bones of unspecified lower limb SNOMED: 654879176, 349716473 Qualifiers: Qualified Codes: C40.21 - Malignant neoplasm of long bones of right lower limb Status: unchanged Assessment/Plan ot pt diet pain control cbc bmp am dc plan snf Subjective Constitutional: Reports: weakness Allergies: Coded Allergies: KETOROLAC (Verified Allergy, Severe, 08/06/16) ASPIRIN (Verified Allergy, Intermediate, 08/06/16) CEPHALEXIN (Verified Allergy, Mild, 12/13/14) FISH DERIVED (Unverified Allergy, Unknown, 08/29/16) PEANUT (Verified Allergy, Unknown, 11/19/15) Uncoded Allergies: fish (Allergy, Unknown, 08/12/16) All Systems: reviewed and negative except above Subjective no appetite Objective Last 24 Hour Vital Signs Date Time Temp Pulse Resp B/P (MAP) Pulse Ox O2 Delivery O2 Flow Rate FiO2 04/01/17 12:53 97.7 04/01/17 08:55 82 146/98 04/01/17 08:54 146/98 04/01/17 08:15 97.9 85 20 119/72 100 Room Air 04/01/17 07:01 77 20 Room Air 04/01/17 04:00 98.6 70 18 150/85 100 Room Air 04/01/17 00:00 97.7 83 18 132/78 94 03/31/17 21:20 76 18 Room Air 21 1/31/18 20:00 96 Room Air 03/31/17 19:59 98.1 75 18 141/94 96 03/31/17 16:00 98.1 83 20 138/81 95 Intake and Output 03/31/17 04/01/17 19:00 07:00 Intake Total 1400 ml 2300 ml Balance 1400 ml 2300 ml Intake Oral 1400 ml 700 ml IV Total 1600 ml # Voids 2 4 # Bowel Movements 1 Laboratory Tests 04/01/17 07:30: White Blood Count 7.6, Red Blood Count 4.03L, Hemoglobin 12.6L, Hematocrit 37.4L , Mean Corpuscular Volume 93, Mean Corpuscular Hemoglobin 31.3H, Mean Corpuscular Hemoglobin Concent 33.7, Red Cell Distribution Width 12.3, Platelet Count 213, Mean Platelet Volume 7.0, Neutrophils (%) (Auto) 55.1, Lymphocytes (% ) (Auto) 32.9, Monocytes (%) (Auto) 9.2, Eosinophils (%) (Auto) 2.2, Basophils ( %) (Auto) 0.6, Sodium Level 138, Potassium Level 3.6, Chloride Level 104, Carbon Dioxide Level 25, Anion Gap 9, Blood Urea Nitrogen 6L, Creatinine 0.6, Estimat Glomerular Filtration Rate > 60, Glucose Level 171H, Calcium Level 8.5 Height (Feet): 5 Height (Inches): 9.00 Weight (Pounds): 270 General Appearance: alert EENT: normal ENT inspection Neck: normal alignment Cardiovascular: normal peripheral pulses, normal rate, regular rhythm Respiratory/Chest: chest wall non-tender, lungs clear, normal breath sounds Abdomen: normal bowel sounds, non tender, soft Extremities: normal inspection Edema: no edema noted Arm (L), no edema noted Arm (R), no edema noted Leg (L), no edema noted Leg (R), no edema noted Pedal (L), no edema noted Pedal (R), no edema noted Generalized Neurologic: responsive, motor weakness Skin: normal pigmentation MARQUEZ FOY Apr 01, 2017 13:29
--- NOTE | 2017-04-01 14:45 | General Progress Note ---
Assessment/Plan Assessment/Plan (1) Osteosarcoma of femur (2) Morbid obesity (3) Chronic pain syndrome Pt will be continued on Fentanyl patch, Oxycodone and Dilaudid. Pt was d/w Dr. Muhammad and he concurred. Subjective Date patient seen: Apr 01, 2017 Time patient seen: 02:15 - pm Allergies: Coded Allergies: KETOROLAC (Verified Allergy, Severe, 08/06/16) ASPIRIN (Verified Allergy, Intermediate, 08/06/16) CEPHALEXIN (Verified Allergy, Mild, 12/13/14) FISH DERIVED (Unverified Allergy, Unknown, 08/29/16) PEANUT (Verified Allergy, Unknown, 11/19/15) Uncoded Allergies: fish (Allergy, Unknown, 08/12/16) Subjective REVIEW OF SYSTEMS: Denies rash, fever, chills, sweating, dizziness, drowsiness, blurred vision, sore throat, change in weight. No chest pain. He is complaining of low back and lower extremity pain. SUBJECTIVE: Patient is in bed and has been c/o severe pain. The pain has been tolerated on the fentanyl patch, Dilaudid and Oxycodone. He has no new complaints. Objective Last 24 Hour Vital Signs Date Time Temp Pulse Resp B/P (MAP) Pulse Ox O2 Delivery O2 Flow Rate FiO2 04/01/17 12:53 97.7 04/01/17 12:00 97.9 77 20 134/87 97 04/01/17 08:55 82 146/98 04/01/17 08:54 146/98 04/01/17 08:15 97.9 85 20 119/72 100 Room Air 04/01/17 07:01 77 20 Room Air 21 04/01/17 04:00 98.6 70 18 150/85 100 Room Air 04/01/17 00:00 97.7 83 18 132/78 94 03/31/17 21:20 76 18 Room Air 21 03/31/17 20:00 96 Room Air 03/31/17 19:59 98.1 75 18 141/94 96 03/31/17 16:00 98.1 83 20 138/81 95 Intake and Output 03/31/17 04/01/17 19:00 07:00 Intake Total 1400 ml 2300 ml Balance 1400 ml 2300 ml Intake Oral 1400 ml 700 ml IV Total 1600 ml # Voids 2 4 # Bowel Movements 1 Laboratory Tests 04/01/17 07:30: White Blood Count 7.6, Red Blood Count 4.03L, Hemoglobin 12.6L, Hematocrit 37.4L , Mean Corpuscular Volume 93, Mean Corpuscular Hemoglobin 31.3H, Mean Corpuscular Hemoglobin Concent 33.7, Red Cell Distribution Width 12.3, Platelet Count 213, Mean Platelet Volume 7.0, Neutrophils (%) (Auto) 55.1, Lymphocytes (% ) (Auto) 32.9, Monocytes (%) (Auto) 9.2, Eosinophils (%) (Auto) 2.2, Basophils ( %) (Auto) 0.6, Sodium Level 138, Potassium Level 3.6, Chloride Level 104, Carbon Dioxide Level 25, Anion Gap 9, Blood Urea Nitrogen 6L, Creatinine 0.6, Estimat Glomerular Filtration Rate > 60, Glucose Level 171H, Calcium Level 8.5 Height (Feet): 5 Height (Inches): 9.00 Weight (Pounds): 270 Objective GENERAL: Alert and oriented x3. HEENT: PERRLA. NECK: Range of motion is full in all direction. No tenderness to paracervical muscles. No adenopathy. LUNGS: Decreased breath sounds bilaterally. HEART: Regular. ABDOMEN: Obese, tenderness to palpation BACK: Range of motion is decreased on flexion and extension with tenderness to paraspinal muscles. No tenderness to trapezius muscles. EXTREMITIES: No cyanosis, no clubbing, no edema. NEUROLOGICAL EXAM: Lower extremities range of motion is decreased due to patient's medical condition with motor being 4/5 in all muscles bilaterally. LIA HAGEN Apr 01, 2017 14:45
[2017-04-01 20:00] VITALS: BP 142/79
[2017-04-01] MEDS: Enoxaparin 40mg Inj SUBQ SCH (21:00)
[2017-04-01] MEDS: TraZODone 100mg tab ORAL SCH (21:00)
[2017-04-01] MEDS: Dyna-Hex 2% Top Sol 2oz TOPIC SCH (21:00)
--- NOTE | 2017-04-01 21:59 | Pulmonology Progress Note ---
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 DVT/GI prophylaxis PT/OT Fall precautions Bowel regimen Encourage healthy diet upon discharge Subjective ROS Limited/Unobtainable: No Musculoskeletal: Reports: pain, swelling, stiffness Allergies: Coded Allergies: KETOROLAC (Verified Allergy, Severe, 08/06/16) ASPIRIN (Verified Allergy, Intermediate, 08/06/16) CEPHALEXIN (Verified Allergy, Mild, 12/13/14) FISH DERIVED (Unverified Allergy, Unknown, 08/29/16) PEANUT (Verified Allergy, Unknown, 11/19/15) Uncoded Allergies: fish (Allergy, Unknown, 08/12/16) Objective Last 24 Hour Vital Signs Date Time Temp Pulse Resp B/P (MAP) Pulse Ox O2 Delivery O2 Flow Rate FiO2 04/01/17 19:19 80 18 Room Air 21 04/01/17 19:07 97.7 04/01/17 12:00 97.9 77 20 134/87 97 04/01/17 08:55 82 146/98 04/01/17 08:54 146/98 04/01/17 08:15 97.9 85 20 119/72 100 Room Air 04/01/17 07:01 77 20 Room Air 21 04/01/17 04:00 98.6 70 18 150/85 100 Room Air 04/01/17 00:00 97.7 83 18 132/78 94 Intake and Output 03/31/17 04/01/17 19:00 07:00 Intake Total 1400 ml 2300 ml Balance 1400 ml 2300 ml Intake Oral 1400 ml 700 ml IV Total 1600 ml # Voids 2 4 # Bowel Movements 1 General Appearance: no acute distress HEENT: normocephalic, atraumatic, PERRL Respiratory/Chest: chest wall non-tender, lungs clear, normal breath sounds, no accessory muscle use Cardiovascular: normal peripheral pulses, normal rate, regular rhythm, no JVD Abdomen: normal bowel sounds, soft, non tender, no organomegaly, non distended Genitourinary: normal external genitalia Extremities: no cyanosis Skin: no rash, no lesions, lesions 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, no motor/sensory deficits Microbiology Date/Time Source Procedure Growth Status 1/30/18 13:40 Blood Blood Culture - Preliminary NO GROWTH AFTER 24 HOURS Resulted 03/30/17 13:30 Blood Blood Culture - Preliminary NO GROWTH AFTER 24 HOURS Resulted 03/30/17 13:30 Nasal Nares Influenza Types A,B Antigen (ADAM) - Final Complete Laboratory Tests 04/01/17 07:30: White Blood Count 7.6, Red Blood Count 4.03L, Hemoglobin 12.6L, Hematocrit 37.4L , Mean Corpuscular Volume 93, Mean Corpuscular Hemoglobin 31.3H, Mean Corpuscular Hemoglobin Concent 33.7, Red Cell Distribution Width 12.3, Platelet Count 213, Mean Platelet Volume 7.0, Neutrophils (%) (Auto) 55.1, Lymphocytes (% ) (Auto) 32.9, Monocytes (%) (Auto) 9.2, Eosinophils (%) (Auto) 2.2, Basophils ( %) (Auto) 0.6, Sodium Level 138, Potassium Level 3.6, Chloride Level 104, Carbon Dioxide Level 25, Anion Gap 9, Blood Urea Nitrogen 6L, Creatinine 0.6, Estimat Glomerular Filtration Rate > 60, Glucose Level 171H, Calcium Level 8.5 Current Medications Medications (Trade) Dose Ordered Sig/Robert Route PRN Reason Start Time Stop Time Status Last Admin Dose Admin Acetaminophen (Tylenol) 650 mg Q4H PRN ORAL fever 03/30/17 21:15 04/29/17 21:14 Al Hydroxide/Mg Hydroxide (Mylanta II) 30 ml Q6H PRN ORAL dyspepsia 03/30/17 22:00 04/29/17 21:59 Albuterol Sulfate (Proventil) 2.5 mg Q6H PRN HHN Persistent Shortness of Breath 03/30/17 21:15 04/04/17 21:14 Albuterol/ Ipratropium (Albuterol/ Ipratropium) 3 ml QIDPRN PRN HHN Shortness of Breath 03/30/17 21:15 04/04/17 21:14 Amitriptyline HCl (Elavil) 25 mg BEDTIME ORAL 03/31/17 21:00 04/30/17 20:59 Future Hold Amlodipine Besylate (Norvasc) 10 mg DAILY ORAL 03/31/17 09:00 04/30/17 08:59 04/01/17 08:55 Baclofen (Lioresal) 10 mg Q8H PRN ORAL muscle spasm 03/31/17 09:00 04/30/17 08:59 04/01/17 15:24 Chlorhexidine Gluconate (Babita-Hex 2%) 1 applic DAILY@1999 TOPIC 03/31/17 20:00 04/30/17 19:59 03/31/17 20:31 Dextrose (Dextrose 50%) STAT PRN IV Hypoglycemia 03/30/17 21:15 04/29/17 21:14 Divalproex Sodium (Depakote ER) 1,000 mg EVERY 12 HOURS ORAL 03/31/17 09:00 04/30/17 08:59 04/01/17 08:52 Docusate Sodium (Colace) 100 mg EVERY 12 HOURS ORAL 03/31/17 09:00 04/30/17 08:59 03/31/17 20:32 Enoxaparin Sodium (Lovenox) 40 mg QHS SUBQ 03/30/17 22:00 04/29/17 21:59 03/31/17 20:34 Fentanyl (Duragesic) 1 patch Q72H TDERMAL 03/31/17 11:00 04/07/17 10:59 03/31/17 11:46 Gabapentin (Neurontin) 300 mg THREE TIMES A DAY ORAL 03/31/17 10:30 04/30/17 10:29 04/01/17 18:35 Hydromorphone HCl (Dilaudid) 2 mg Q3H PRN IVP Severe Pain (Pain Scale 7-10) 03/31/17 09:15 04/06/17 21:14 04/01/17 18:37 Lisinopril (Prinivil) 20 mg DAILY ORAL 03/31/17 09:00 04/30/17 08:59 04/01/17 08:54 Lorazepam (Ativan 2mg/ml 1ml) 0.5 mg Q4H PRN IV For Anxiety 03/30/17 22:00 04/06/17 21:59 03/31/17 21:34 Lorazepam (Ativan) 1 mg Q4H PRN ORAL For Anxiety 03/30/17 21:15 04/06/17 21:14 Magnesium Hydroxide (Mom) 30 ml HSPRN PRN ORAL Constipation 03/30/17 21:15 04/29/17 21:14 Methylnaltrexone [place] (Relistor) 12 mg QOD SUBQ 03/31/17 10:30 04/30/17 10:29 Miscellaneous Medication (fentaNYL Destruction) 1 ea Q72H MISC 04/03/17 11:00 05/03/17 10:59 Naloxone HCl (Narcan) 0.1 mg PRN IV Sedation scale 3 or 4 03/31/17 09:00 Nicotine (Nicoderm) 1 patch Q24H TDERMAL 03/31/17 17:00 04/30/17 16:59 04/01/17 18:43 Nitroglycerin (Ntg) 0.4 mg Q5M X 3 DOSES PRN SL Prn Chest Pain 03/30/17 21:15 04/29/17 21:14 Ondansetron HCl (Zofran) 4 mg Q6H PRN IVP Nausea & Vomiting 03/30/17 21:15 04/29/17 21:14 Oxycodone HCl (Roxicodone) 10 mg Q4H PRN ORAL moderate breakthrough pain 03/31/17 09:00 04/07/17 08:59 03/31/17 16:20 Pantoprazole (Protonix) 40 mg DAILY ORAL 03/31/17 09:00 04/30/17 08:59 04/01/17 08:55 Phenytoin (Dilantin) 250 mg DAILY ORAL 03/31/17 09:00 04/30/17 08:59 04/01/17 08:53 Polyethylene Glycol (Miralax) 17 gm HSPRN PRN ORAL Constipation 03/30/17 22:00 04/29/17 21:59 Quetiapine Fumarate (SEROquel) 100 mg QHS ORAL 03/31/17 21:00 04/30/17 20:59 03/31/17 20:31 Sodium Chloride 1,000 ml @ 150 mls/hr Q6H40M IVLG 03/30/17 22:30 04/29/17 22:29 04/01/17 09:56 Trazodone HCl (Desyrel) 100 mg BEDTIME ORAL 03/31/17 21:00 04/30/17 20:59 03/31/17 20:31 Zolpidem Tartrate (Ambien) 5 mg HSPRN PRN ORAL Insomnia 03/30/17 21:15 04/06/17 21:14 LAUREN OCHOA Apr 01, 2017 21:59
[2017-04-02] VITALS: BP 153/93
[2017-04-02 04:04] VITALS: BP 145/75
--- NOTE | 2017-04-02 08:47 | Pulmonology Progress Note ---
Assessment/Plan Assessment/Plan ASSESSMENT Osteosarcoma of femur Chronic pain syndrome COPD PTSD CVA history HTN nicotine dependency with withdrawal PLAN OF CARE MS floor pain management pain specialist follows O2 HHN prn CXR negative CP status stable Nicotine patch preparole counseling aide on smoking cessation DVT/GI prophylaxis PT/OT fall precautions Bowel regimen BP management with CCB and optimize as needed patient lost on purpose some weight, compared with previous, encourage healthy diet upon discharge dc plan per PMD case discussed and evaluated by supervising physician Subjective Allergies: Coded Allergies: KETOROLAC (Verified Allergy, Severe, 08/06/16) ASPIRIN (Verified Allergy, Intermediate, 08/06/16) CEPHALEXIN (Verified Allergy, Mild, 12/13/14) FISH DERIVED (Unverified Allergy, Unknown, 08/29/16) PEANUT (Verified Allergy, Unknown, 11/19/15) Uncoded Allergies: fish (Allergy, Unknown, 08/12/16) Subjective ambulates with cane no SOB no wheezing, no CP pain intermittently controlled Objective Last 24 Hour Vital Signs Date Time Temp Pulse Resp B/P (MAP) Pulse Ox O2 Delivery O2 Flow Rate FiO2 04/02/17 06:54 97.7 04/02/17 04:04 97.7 80 20 145/75 96 04/02/17 00:00 97.7 79 20 153/93 96 04/01/17 20:00 97.7 86 20 142/79 96 04/01/17 19:19 80 18 Room Air 21 04/01/17 12:00 97.9 77 20 134/87 97 04/01/17 08:55 82 146/98 04/01/17 08:54 146/98 Intake and Output 04/01/17 04/02/17 19:00 07:00 Intake Total 1470 ml 1300 ml Output Total 1 ml Balance 1469 ml 1300 ml Intake Oral 120 ml IV Total 1350 ml 1300 ml Output Urine Total 1 ml # Voids 2 General Appearance: no acute distress, other - A/A/O x 4 morbidly obese male HEENT: normocephalic, atraumatic, anicteric, mucous membranes moist Respiratory/Chest: lungs clear - with moderate air exchange , no respiratory distress, no accessory muscle use Cardiovascular: normal rate, regular rhythm, no JVD Abdomen: normal bowel sounds, soft, non tender - obes Extremities: no edema, pedal pulses normal 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: abnormal gait - with cane, alert, oriented x 3, responsive Musculoskeletal: normal muscle bulk Microbiology Date/Time Source Procedure Growth Status 03/30/17 13:40 Blood Blood Culture - Preliminary NO GROWTH AFTER 48 HOURS Resulted 03/30/17 13:30 Blood Blood Culture - Preliminary NO GROWTH AFTER 48 HOURS Resulted 03/30/17 13:30 Nasal Nares Influenza Types A,B Antigen (ADAM) - Final Complete Current Medications Medications (Trade) Dose Ordered Sig/Robert Route PRN Reason Start Time Stop Time Status Last Admin Dose Admin Acetaminophen (Tylenol) 650 mg Q4H PRN ORAL fever 03/30/17 21:15 04/29/17 21:14 Al Hydroxide/Mg Hydroxide (Mylanta II) 30 ml Q6H PRN ORAL dyspepsia 03/30/17 22:00 04/29/17 21:59 Albuterol Sulfate (Proventil) 2.5 mg Q6H PRN HHN Persistent Shortness of Breath 03/30/17 21:15 04/04/17 21:14 Albuterol/ Ipratropium (Albuterol/ Ipratropium) 3 ml QIDPRN PRN HHN Shortness of Breath 03/30/17 21:15 04/04/17 21:14 Amitriptyline HCl (Elavil) 25 mg BEDTIME ORAL 03/31/17 21:00 04/30/17 20:59 Future Hold Amlodipine Besylate (Norvasc) 10 mg DAILY ORAL 03/31/17 09:00 04/30/17 08:59 04/01/17 08:55 Baclofen (Lioresal) 10 mg Q8H PRN ORAL muscle spasm 03/31/17 09:00 04/30/17 08:59 04/01/17 15:24 Chlorhexidine Gluconate (Babita-Hex 2%) 1 applic DAILY@1999 TOPIC 03/31/17 20:00 04/30/17 19:59 04/01/17 21:00 Dextrose (Dextrose 50%) STAT PRN IV Hypoglycemia 03/30/17 21:15 04/29/17 21:14 Divalproex Sodium (Depakote ER) 1,000 mg EVERY 12 HOURS ORAL 03/31/17 09:00 04/30/17 08:59 04/01/17 21:00 Docusate Sodium (Colace) 100 mg EVERY 12 HOURS ORAL 03/31/17 09:00 04/30/17 08:59 04/01/17 21:00 Enoxaparin Sodium (Lovenox) 40 mg QHS SUBQ 03/30/17 22:00 04/29/17 21:59 04/01/17 21:00 Fentanyl (Duragesic) 1 patch Q72H TDERMAL 03/31/17 11:00 04/07/17 10:59 03/31/17 11:46 Gabapentin (Neurontin) 300 mg THREE TIMES A DAY ORAL 03/31/17 10:30 04/30/17 10:29 04/01/17 18:35 Hydromorphone HCl (Dilaudid) 2 mg Q3H PRN IVP Severe Pain (Pain Scale 7-10) 03/31/17 09:15 04/06/17 21:14 04/02/17 06:24 Lisinopril (Prinivil) 20 mg DAILY ORAL 03/31/17 09:00 04/30/17 08:59 04/01/17 08:54 Lorazepam (Ativan 2mg/ml 1ml) 0.5 mg Q4H PRN IV For Anxiety 03/30/17 22:00 04/06/17 21:59 03/31/17 21:34 Lorazepam (Ativan) 1 mg Q4H PRN ORAL For Anxiety 03/30/17 21:15 04/06/17 21:14 Magnesium Hydroxide (Mom) 30 ml HSPRN PRN ORAL Constipation 03/30/17 21:15 04/29/17 21:14 Methylnaltrexone [place] (Relistor) 12 mg QOD SUBQ 03/31/17 10:30 04/30/17 10:29 Miscellaneous Medication (fentaNYL Destruction) 1 ea Q72H MISC 04/03/17 11:00 05/03/17 10:59 Naloxone HCl (Narcan) 0.1 mg PRN IV Sedation scale 3 or 4 03/31/17 09:00 Nicotine (Nicoderm) 1 patch Q24H TDERMAL 03/31/17 17:00 04/30/17 16:59 04/01/17 18:43 Nitroglycerin (Ntg) 0.4 mg Q5M X 3 DOSES PRN SL Prn Chest Pain 03/30/17 21:15 04/29/17 21:14 Ondansetron HCl (Zofran) 4 mg Q6H PRN IVP Nausea & Vomiting 03/30/17 21:15 04/29/17 21:14 Oxycodone HCl (Roxicodone) 10 mg Q4H PRN ORAL moderate breakthrough pain 03/31/17 09:00 04/07/17 08:59 03/31/17 16:20 Pantoprazole (Protonix) 40 mg DAILY ORAL 03/31/17 09:00 04/30/17 08:59 04/01/17 08:55 Phenytoin (Dilantin) 250 mg DAILY ORAL 03/31/17 09:00 04/30/17 08:59 04/01/17 08:53 Polyethylene Glycol (Miralax) 17 gm HSPRN PRN ORAL Constipation 03/30/17 22:00 04/29/17 21:59 Quetiapine Fumarate (SEROquel) 100 mg QHS ORAL 03/31/17 21:00 04/30/17 20:59 04/01/17 21:00 Sodium Chloride 1,000 ml @ 150 mls/hr Q6H40M IVLG 03/30/17 22:30 04/29/17 22:29 04/02/17 03:26 Trazodone HCl (Desyrel) 100 mg BEDTIME ORAL 03/31/17 21:00 04/30/17 20:59 04/01/17 21:00 Zolpidem Tartrate (Ambien) 5 mg HSPRN PRN ORAL Insomnia 03/30/17 21:15 04/06/17 21:14 Almita Carreno NP ([facility]) Apr 02, 2017 08:47
[2017-04-02] MEDS: Docusate 100mg cap ORAL SCH ×3 (09:00→21:00)
[2017-04-02 09:03] LABS: BASOPHILS % (AUTO) 0.6 % (0.0-2.0); HEMATOCRIT 37.8 % (42.0-52.0); HEMOGLOBIN 12.8 G/DL (14.2-18.0); LYMPHOCYTES % (AUTO) 31.5 % (20.0-45.0); MEAN CORPUSCULAR VOLUME 94 FL (80-99); MONOCYTES % (AUTO) 7.5 % (1.0-10.0); NEUTROPHILS % (AUTO) 58.4 % (45.0-75.0); PLATELET COUNT 239 K/UL (150-450); RED BLOOD COUNT 4.04 M/UL (4.70-6.10); WHITE BLOOD COUNT 8.8 K/UL (4.8-10.8)
--- NOTE | 2017-04-02 09:22 | General Progress Note ---
Assessment/Plan Assessment/Plan (1) Osteosarcoma of femur (2) Morbid obesity (3) Chronic pain syndrome Pt will be continued on Fentanyl patch increased to 50mcg/hr, Oxycodone and Dilaudid. An Rx for Fentanyl patch 50mcg/hr 1 patch Q72hrs 5 patches and Dilaudid 4mg PO 1 tab Q4-6H PRN 20 tabs was written for patient in anticipation for discharge. Pt was d/w Dr. Muhammad and he concurred. Subjective Date patient seen: Apr 02, 2017 Time patient seen: 06:30 - am Allergies: Coded Allergies: KETOROLAC (Verified Allergy, Severe, 08/06/16) ASPIRIN (Verified Allergy, Intermediate, 08/06/16) CEPHALEXIN (Verified Allergy, Mild, 12/13/14) FISH DERIVED (Unverified Allergy, Unknown, 08/29/16) PEANUT (Verified Allergy, Unknown, 11/19/15) Uncoded Allergies: fish (Allergy, Unknown, 08/12/16) Subjective REVIEW OF SYSTEMS: Denies rash, fever, chills, sweating, dizziness, drowsiness, blurred vision, sore throat, change in weight. No chest pain. He is complaining of low back and lower extremity pain. SUBJECTIVE: Patient continues to c/o severe pain and has found minimal relief with the Fentanyl patch at current strength relying on the Dilaudid IV. I d/w him about increasing the Fentanyl patch. Objective Last 24 Hour Vital Signs Date Time Temp Pulse Resp B/P (MAP) Pulse Ox O2 Delivery O2 Flow Rate FiO2 04/02/17 06:54 97.7 04/02/17 04:04 97.7 80 20 145/75 96 04/02/17 00:00 97.7 79 20 153/93 96 04/01/17 20:00 97.7 86 20 142/79 96 04/01/17 19:19 80 18 Room Air 21 04/01/17 12:00 97.9 77 20 134/87 97 Intake and Output 04/01/17 04/02/17 19:00 07:00 Intake Total 1470 ml 1300 ml Output Total 1 ml Balance 1469 ml 1300 ml Intake Oral 120 ml IV Total 1350 ml 1300 ml Output Urine Total 1 ml # Voids 2 Laboratory Tests 04/02/17 05:00: White Blood Count 8.8, Red Blood Count 4.04L, Hemoglobin 12.8L, Hematocrit 37.8L , Mean Corpuscular Volume 94, Mean Corpuscular Hemoglobin 31.7H, Mean Corpuscular Hemoglobin Concent 33.9, Red Cell Distribution Width 12.0, Platelet Count 239, Mean Platelet Volume 7.0, Neutrophils (%) (Auto) 58.4, Lymphocytes (% ) (Auto) 31.5, Monocytes (%) (Auto) 7.5, Eosinophils (%) (Auto) 2.0, Basophils ( %) (Auto) 0.6, Sodium Level [Pending], Potassium Level [Pending], Chloride Level [Pending], Carbon Dioxide Level [Pending], Blood Urea Nitrogen [Pending], Creatinine [Pending], Estimat Glomerular Filtration Rate [Pending], Glucose Level [Pending], Calcium Level [Pending] Height (Feet): 5 Height (Inches): 9.00 Weight (Pounds): 270 Objective GENERAL: Alert and oriented x3. HEENT: PERRLA. NECK: Range of motion is full in all direction. No tenderness to paracervical muscles. No adenopathy. LUNGS: Decreased breath sounds bilaterally. HEART: Regular. ABDOMEN: Obese, tenderness to palpation BACK: Range of motion is decreased on flexion and extension with tenderness to paraspinal muscles. No tenderness to trapezius muscles. EXTREMITIES: No cyanosis, no clubbing, no edema. NEUROLOGICAL EXAM: Lower extremities range of motion is decreased due to patient's medical condition with motor being 4/5 in all muscles bilaterally. LIA HAGEN Apr 02, 2017 09:22
[2017-04-02 09:31] LABS: ANION GAP 12 mmol/L (5-15); BLOOD UREA NITROGEN 5 mg/dL (7-18); CALCIUM 8.9 MG/DL (8.5-10.1); CARBON DIOXIDE 24 MMOL/L (21-32); CHLORIDE 103 MMOL/L (98-107); CREATININE 0.6 MG/DL (0.55-1.30); POTASSIUM 3.7 MMOL/L (3.5-5.1); SODIUM 139 MMOL/L (136-145)
[2017-04-02] MEDS: Lisinopril 20mg tab ORAL SCH ×2 (09:46→18:18)
[2017-04-02] MEDS: Phenytoin Susp 100mg/4ml ORAL SCH (09:47)
[2017-04-02] MEDS: Depakote ER 500mg tab ORAL SCH ×2 (09:49→22:08)
[2017-04-02] MEDS: Relistor 12mg/0.6ml Vial SUBQ SCH (10:03)
--- NOTE | 2017-04-02 11:22 | Infectious Diseases Prog Note ---
Assessment/Plan Assessment/Plan A; Chronic diarrhea R hip osteosarcoma Chronic pain P; observe off antibiotics will f/u stool studies Subjective ROS Limited/Unobtainable: No Constitutional: Reports: no symptoms Respiratory: Reports: productive cough Cardiovascular: Reports: no symptoms Gastrointestinal/Abdominal: Reports: diarrhea, other - decreased Genitourinary: Reports: no symptoms Musculoskeletal: Reports: pain Allergies: Coded Allergies: KETOROLAC (Verified Allergy, Severe, 08/06/16) ASPIRIN (Verified Allergy, Intermediate, 08/06/16) CEPHALEXIN (Verified Allergy, Mild, 12/13/14) FISH DERIVED (Unverified Allergy, Unknown, 08/29/16) PEANUT (Verified Allergy, Unknown, 11/19/15) Uncoded Allergies: fish (Allergy, Unknown, 08/12/16) Objective Vital Signs Last 24 Hour Vital Signs Date Time Temp Pulse Resp B/P (MAP) Pulse Ox O2 Delivery O2 Flow Rate FiO2 04/02/17 10:21 97.7 04/02/17 09:48 80 145/75 04/02/17 09:46 145/75 04/02/17 04:04 97.7 80 20 145/75 96 04/02/17 00:00 97.7 79 20 153/93 96 04/01/17 20:00 97.7 86 20 142/79 96 04/01/17 19:19 80 18 Room Air 21 04/01/17 12:00 97.9 77 20 134/87 97 Height (Feet): 5 Height (Inches): 9.00 Weight (Pounds): 270 General Appearance: no acute distress, other - obese Respiratory/Chest: lungs clear Cardiovascular: normal rate Abdomen: soft, non tender Extremities: no edema, other - PICC line 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: alert, oriented x 3, responsive Microbiology Date/Time Source Procedure Growth Status 03/30/17 13:40 Blood Blood Culture - Preliminary NO GROWTH AFTER 48 HOURS Resulted 03/30/17 13:30 Blood Blood Culture - Preliminary NO GROWTH AFTER 48 HOURS Resulted 03/30/17 13:30 Nasal Nares Influenza Types A,B Antigen (ADAM) - Final Complete Laboratory Tests Test 04/02/17 05:00 White Blood Count 8.8 K/UL (4.8-10.8) Red Blood Count 4.04 M/UL (4.70-6.10) L Hemoglobin 12.8 G/DL (14.2-18.0) L Hematocrit 37.8 % (42.0-52.0) L Mean Corpuscular Volume 94 FL (80-99) Mean Corpuscular Hemoglobin 31.7 PG (27.0-31.0) H Mean Corpuscular Hemoglobin Concent 33.9 G/DL (32.0-36.0) Red Cell Distribution Width 12.0 % (11.6-14.8) Platelet Count 239 K/UL (150-450) Mean Platelet Volume 7.0 FL (6.5-10.1) Neutrophils (%) (Auto) 58.4 % (45.0-75.0) Lymphocytes (%) (Auto) 31.5 % (20.0-45.0) Monocytes (%) (Auto) 7.5 % (1.0-10.0) Eosinophils (%) (Auto) 2.0 % (0.0-3.0) Basophils (%) (Auto) 0.6 % (0.0-2.0) Sodium Level 139 MMOL/L (136-145) Potassium Level 3.7 MMOL/L (3.5-5.1) Chloride Level 103 MMOL/L (98-107) Carbon Dioxide Level 24 MMOL/L (21-32) Anion Gap 12 mmol/L (5-15) Blood Urea Nitrogen 5 mg/dL (7-18) L Creatinine 0.6 MG/DL (0.55-1.30) Estimat Glomerular Filtration Rate > 60 mL/min (>60) Glucose Level 154 MG/DL (74-106) H Calcium Level 8.9 MG/DL (8.5-10.1) Current Medications Medications (Trade) Dose Ordered Sig/Robert Route PRN Reason Start Time Stop Time Status Last Admin Dose Admin Acetaminophen (Tylenol) 650 mg Q4H PRN ORAL fever 03/30/17 21:15 04/29/17 21:14 Al Hydroxide/Mg Hydroxide (Mylanta II) 30 ml Q6H PRN ORAL dyspepsia 03/30/17 22:00 04/29/17 21:59 Albuterol Sulfate (Proventil) 2.5 mg Q6H PRN HHN Persistent Shortness of Breath 03/30/17 21:15 04/04/17 21:14 Albuterol/ Ipratropium (Albuterol/ Ipratropium) 3 ml QIDPRN PRN HHN Shortness of Breath 04/02/17 11:30 04/07/17 11:29 Amitriptyline HCl (Elavil) 25 mg BEDTIME ORAL 03/31/17 21:00 04/30/17 20:59 Future Hold Amlodipine Besylate (Norvasc) 10 mg DAILY ORAL 03/31/17 09:00 04/30/17 08:59 04/02/17 09:48 Baclofen (Lioresal) 10 mg Q8H PRN ORAL muscle spasm 03/31/17 09:00 04/30/17 08:59 04/01/17 15:24 Chlorhexidine Gluconate (Babita-Hex 2%) 1 applic DAILY@2000 TOPIC 03/31/17 20:00 04/30/17 19:59 04/01/17 21:00 Dextrose (Dextrose 50%) STAT PRN IV Hypoglycemia 03/30/17 21:15 04/29/17 21:14 Divalproex Sodium (Depakote ER) 1,000 mg EVERY 12 HOURS ORAL 03/31/17 09:00 04/30/17 08:59 04/02/17 09:49 Docusate Sodium (Colace) 100 mg EVERY 12 HOURS ORAL 03/31/17 09:00 04/30/17 08:59 04/01/17 21:00 Enoxaparin Sodium (Lovenox) 40 mg QHS SUBQ 03/30/17 22:00 04/29/17 21:59 04/01/17 21:00 Fentanyl (Duragesic) 1 patch Q72H TDERMAL 04/02/17 12:00 04/09/17 11:59 Gabapentin (Neurontin) 300 mg THREE TIMES A DAY ORAL 03/31/17 10:30 04/30/17 10:29 04/02/17 09:47 Hydromorphone HCl (Dilaudid) 2 mg Q3H PRN IVP Severe Pain (Pain Scale 7-10) 03/31/17 09:15 04/06/17 21:14 04/02/17 09:51 Lisinopril (Prinivil) 20 mg DAILY ORAL 03/31/17 09:00 04/30/17 08:59 04/02/17 09:46 Lorazepam (Ativan 2mg/ml 1ml) 0.5 mg Q4H PRN IV For Anxiety 03/30/17 22:00 04/06/17 21:59 03/31/17 21:34 Lorazepam (Ativan) 1 mg Q4H PRN ORAL For Anxiety 03/30/17 21:15 04/06/17 21:14 Magnesium Hydroxide (Mom) 30 ml HSPRN PRN ORAL Constipation 03/30/17 21:15 04/29/17 21:14 Methylnaltrexone [place] (Relistor) 12 mg QOD SUBQ 03/31/17 10:30 04/30/17 10:29 Miscellaneous Medication (fentaNYL Destruction) 1 ea Q72H MISC 04/03/17 11:00 05/03/17 10:59 Naloxone HCl (Narcan) 0.1 mg PRN IV Sedation scale 3 or 4 03/31/17 09:00 Nicotine (Nicoderm) 1 patch Q24H TDERMAL 03/31/17 17:00 04/30/17 16:59 04/01/17 18:43 Nitroglycerin (Ntg) 0.4 mg Q5M X 3 DOSES PRN SL Prn Chest Pain 03/30/17 21:15 04/29/17 21:14 Ondansetron HCl (Zofran) 4 mg Q6H PRN IVP Nausea & Vomiting 03/30/17 21:15 04/29/17 21:14 Oxycodone HCl (Roxicodone) 10 mg Q4H PRN ORAL moderate breakthrough pain 03/31/17 09:00 04/07/17 08:59 03/31/17 16:20 Pantoprazole (Protonix) 40 mg DAILY ORAL 03/31/17 09:00 04/30/17 08:59 04/02/17 09:46 Phenytoin (Dilantin) 250 mg DAILY ORAL 03/31/17 09:00 04/30/17 08:59 04/02/17 09:47 Polyethylene Glycol (Miralax) 17 gm HSPRN PRN ORAL Constipation 03/30/17 22:00 04/29/17 21:59 Quetiapine Fumarate (SEROquel) 100 mg QHS ORAL 03/31/17 21:00 04/30/17 20:59 04/01/17 21:00 Sodium Chloride 1,000 ml @ 150 mls/hr Q6H40M IVLG 03/30/17 22:30 04/29/17 22:29 04/02/17 10:39 Trazodone HCl (Desyrel) 100 mg BEDTIME ORAL 03/31/17 21:00 04/30/17 20:59 04/01/17 21:00 Zolpidem Tartrate (Ambien) 5 mg HSPRN PRN ORAL Insomnia 03/30/17 21:15 04/06/17 21:14 DAREK SANCHEZ Apr 02, 2017 11:22
[2017-04-02] MEDS ORDERED: Albuterol/Ipratropium 3ml neb HHN PRN (11:30)
--- NOTE | 2017-04-02 11:30 | General Progress Note ---
Assessment/Plan Problem List: (1) Chronic pain ICD Codes: G89.29 - Other chronic pain SNOMED: 15955532 (2) COPD (chronic obstructive pulmonary disease) ICD Codes: J44.9 - Chronic obstructive pulmonary disease, unspecified SNOMED: 46469592 (3) Psychiatric disorder ICD Codes: F99 - Mental disorder, not otherwise specified SNOMED: 88206768, 988791438 (4) PTSD (post-traumatic stress disorder) ICD Codes: F43.10 - Post-traumatic stress disorder, unspecified SNOMED: 62632676 (5) CVA (cerebral vascular accident) ICD Codes: I63.9 - Cerebral infarction, unspecified SNOMED: 294775937 (6) Intractable pain ICD Codes: R52 - Pain, unspecified SNOMED: 31463536 (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 - Malignant neoplasm of long bones of unspecified lower limb SNOMED: 177850219, 934091082 Qualifiers: Qualified Codes: C40.21 - Malignant neoplasm of long bones of right lower limb Status: unchanged Assessment/Plan ot pt diet pain control cbc bmp am dc plan snf Subjective Constitutional: Reports: weakness Allergies: Coded Allergies: KETOROLAC (Verified Allergy, Severe, 08/06/16) ASPIRIN (Verified Allergy, Intermediate, 08/06/16) CEPHALEXIN (Verified Allergy, Mild, 12/13/14) FISH DERIVED (Unverified Allergy, Unknown, 08/29/16) PEANUT (Verified Allergy, Unknown, 11/19/15) Uncoded Allergies: fish (Allergy, Unknown, 08/12/16) All Systems: reviewed and negative except above Subjective no appetite Objective Last 24 Hour Vital Signs Date Time Temp Pulse Resp B/P (MAP) Pulse Ox O2 Delivery O2 Flow Rate FiO2 04/02/17 10:21 97.7 04/02/17 09:48 80 145/75 04/02/17 09:46 145/75 04/02/17 04:04 97.7 80 20 145/75 96 04/02/17 00:00 97.7 79 20 153/93 96 04/01/17 20:00 97.7 86 20 142/79 96 04/01/17 19:19 80 18 Room Air 21 04/01/17 12:00 97.9 77 20 134/87 97 Intake and Output 04/01/17 04/02/17 19:00 07:00 Intake Total 1470 ml 1300 ml Output Total 1 ml Balance 1469 ml 1300 ml Intake Oral 120 ml IV Total 1350 ml 1300 ml Output Urine Total 1 ml # Voids 2 Laboratory Tests 04/02/17 05:00: White Blood Count 8.8, Red Blood Count 4.04L, Hemoglobin 12.8L, Hematocrit 37.8L , Mean Corpuscular Volume 94, Mean Corpuscular Hemoglobin 31.7H, Mean Corpuscular Hemoglobin Concent 33.9, Red Cell Distribution Width 12.0, Platelet Count 239, Mean Platelet Volume 7.0, Neutrophils (%) (Auto) 58.4, Lymphocytes (% ) (Auto) 31.5, Monocytes (%) (Auto) 7.5, Eosinophils (%) (Auto) 2.0, Basophils ( %) (Auto) 0.6, Sodium Level 139, Potassium Level 3.7, Chloride Level 103, Carbon Dioxide Level 24, Anion Gap 12, Blood Urea Nitrogen 5L, Creatinine 0.6, Estimat Glomerular Filtration Rate > 60, Glucose Level 154H, Calcium Level 8.9 Height (Feet): 5 Height (Inches): 9.00 Weight (Pounds): 270 General Appearance: alert EENT: normal ENT inspection Neck: normal alignment Cardiovascular: normal peripheral pulses, normal rate, regular rhythm Respiratory/Chest: chest wall non-tender, lungs clear, normal breath sounds Abdomen: normal bowel sounds, non tender, soft Extremities: normal inspection Edema: no edema noted Arm (L), no edema noted Arm (R), no edema noted Leg (L), no edema noted Leg (R), no edema noted Pedal (L), no edema noted Pedal (R), no edema noted Generalized Neurologic: responsive, motor weakness Skin: normal pigmentation, warm/dry MARQUEZ FOY Apr 02, 2017 11:30
[2017-04-02 12:00] VITALS: BP 158/105
[2017-04-02] MEDS: fentaNYL Destruction MISC SCH (12:00)
--- NOTE | 2017-04-02 12:54 | History and Physical Report ---
DATE OF ADMISSION: 03/30/2017 APPROXIMATE TIME: 1 p.m. CONSULTANTS: 1. Awa Thomas M.D. 2. Ministerio Joe M.D. 3. Ignacio Muhammad M.D. 4. Dr. Abbott CHIEF COMPLAINT: Intractable leg pain. BRIEF HISTORY: The patient is a 41-year-old male who lives at home. The patient has a history of osteosarcoma right leg and chronic pain, came in, diagnosed with the above, intractable pain in the right leg x2 days, 09/07. The patient admitted to medical floor for further treatment. Currently, feeling a little better with pain medications, no complaint. REVIEW OF SYSTEMS: No chest pain. No shortness of breath. No nausea, vomiting, diarrhea. PAST MEDICAL HISTORY: Include chronic pain, osteosarcoma right leg, depression, hypertension, chronic obstructive pulmonary disease. PAST SURGICAL HISTORY: Gallbladder. MEDICATIONS: Include fentanyl, Elavil, Seroquel, Desyrel, Duragesic, Neurontin, Dilaudid, Protonix, Norvasc Depakote, Prinivil. ALLERGIES: Keflex. SOCIAL HISTORY: Positive smoking. No alcohol. No intravenous drug abuse. FAMILY HISTORY: Noncontributory. OBJECTIVE: GENERAL: Calm in bed, oriented x3, no acute distress. VITAL SIGNS: Temperature is 97, pulse 85, respiratory rate 21, blood pressure 152/102. CARDIOVASCULAR: No murmur. LUNGS: Distant and clear. ABDOMEN: Bowel sounds positive. Soft, nontender and nontender. EXTREMITIES: No cyanosis, clubbing, or edema. NEUROLOGIC: The patient moves all extremities, slightly weak. LABORATORY AND DIAGNOSTIC DATA: White count 11.5, otherwise CBC is normal. BMP shows glucose 128, otherwise BMP is normal. Troponin 0.00. INR is 1.0 and PTT 25. ASSESSMENT: 1. Chronic pain. 2. Osteosarcoma, right leg. 3. Depression. 4. Hypertension. 5. Chronic obstructive pulmonary disease. PLAN: 1. Continue premeds. 2. OT/PT. 3. Dietary follow up. 4. Pain control. 5. Blood pressure control. 6. Dr. Arguelles, Dr. Joe, Dr. Muhammad, Dr. Abbott, Dr. Rosenthal, and Dr. Del Valle to consult. 7. We will continue to follow the patient medically. Jeremiah Singh D.O. DR: Rock JOB#: [id number] CC:
--- NOTE | 2017-04-02 12:55 | Consultation ---
DATE OF CONSULTATION: 03/31/2017 NOTE: POOR AUDIO HISTORY OF PRESENT ILLNESS: The patient is a 41-year-old male patient, admitted to [facility] secondary to osteosarcoma and pain disorder, but because of his high levels of pain, he has increased depression and anxiety . He already has a diagnosis of bipolar 2 disorder. Therefore, attending physician has requested daily psychiatric consultation for this patient. PSYCHIATRIC HISTORY: Bipolar disorder with multiple psychiatric admissions . ALLERGIES: Cephalexin and aspirin. SOCIAL HISTORY: Homeless. He is financially supported by [employer] and Medicare. SUBSTANCE ABUSE HISTORY: He has a history of polysubstance abuse, but he details at this time. FAMILY PSYCHIATRIC HISTORY: Denies. better. does not have support system. MENTAL STATUS EXAMINATION: Appearance is disheveled. Attitude is irritable and agitated. Affect is guarded and restricted. Intellect is poor. Mood is depressed and anxious. Motor activity, psychomotor agitation. Attention span is poor. Orientation x2. Speech is of low volume and slurred. Thought process is disorganized. Thought content, paranoid delusions. Insight and judgment poor. progress is poor. . DIAGNOSES: 1. Bipolar 2. 2. Medical, osteosarcoma. 3. Psychosocial stressors, financial. 4. . PLAN: Treat the patient with trazodone 100 mg at bedtime, Seroquel 100 mg at bedtime, Elavil 25 mg at bedtime, Depakote 1000 mg twice a day. Provide him with supportive therapy. Chart reviewed and discussed with staff. The patient is seen at the bedside. Awa Thomas M.D. DR: NICHELLE JOB#: [id number] CC:
--- NOTE | 2017-04-02 12:55 | Consultation ---
DATE OF CONSULTATION: 03/31/2017 NOTE: POOR AUDIO HEMATOLOGY/ONCOLOGY CONSULTATION CONSULTING PHYSICIAN: Bin Abbott M.D. REQUESTING PHYSICIAN: Jeremiah Singh D.O. IDENTIFYING DATA: The patient is a pleasant 41-year-old male with a past medical history, which is significant for osteosarcoma and has had multiple treatments in the past, however, not receiving treatments, was supposed to follow up in our office, has been seeing [facility], at this time presented to the hospital with most recently admitted . He has a history of osteosarcoma . Hematology Service was consulted at this time for further evaluation and treatment of his underlying disease. PAST MEDICAL HISTORY: COPD, bronchitis, osteosarcoma, . MEDICATIONS: Ceftriaxone. ALLERGIES: Ketorolac, aspirin, peanuts, and Keflex. SOCIAL HISTORY: . FAMILY HISTORY: Noncontributory. REVIEW OF SYSTEMS: A 12-point review of systems was completed and is otherwise negative. PHYSICAL EXAMINATION: GENERAL: No distress. VITAL SIGNS: Reviewed. PULMONARY: Decreased breath sounds. CARDIOVASCULAR: Regular rate. No S3 or S4. ABDOMEN: Soft, nontender, and nondistended. EXTREMITIES: A 1+ edema. LABORATORY DATA: WBC 8.1, hemoglobin 14.6, and platelet count is 199,000. . ASSESSMENT AND RECOMMENDATIONS: 1. Osteosarcoma. The patient is status post chemotherapy and radiation in the past. Continues to follow up with Dr. Chacorta Abbott. . Hematology/Oncology Service was consulted for further evaluation and treatment. The patient has been seen by me as of two days ago. and again this time is being readmitted with pain, has been seen by Ayush Nagy . 2. Anemia due to underlying chronic disease. 3. Anemia due to kidney disease. Continue to closely monitor. 4. Diabetes mellitus, potentially related to poor control. 5. Leukocytosis, continue to monitor. 6. due to underlying history of anemia. Currently, actually has improved. I appreciate the consultation. Bin Abbott M.D. DR: HADLEY JOB#: [id number] CC:
--- NOTE | 2017-04-02 12:56 | Consultation ---
DATE OF CONSULTATION: 04/01/2017 INFECTIOUS DISEASE CONSULTATION CONSULTING PHYSICIAN: Juwan Hightower M.D. PRIMARY ATTENDING PHYSICIAN: Jeremiah Singh D.O. REASON FOR CONSULTATION: Diarrhea. HISTORY OF PRESENT ILLNESS: This is a 41-year-old white male, admitted on 03/30/2017 complaining of intractable pain. The patient had history of osteosarcoma with local spread. He has history of treatment with radiation and chemotherapy last year. Complains of chronic diarrhea at home. For that he is taking Imodium. PAST MEDICAL HISTORY: Significant for osteosarcoma of right femur, morbid obesity. The patient had a lot of weight loss recently, hepatitis C, bipolar disorder, posttraumatic stress disorder, COPD, nicotine dependence, chronic pain. MEDICATIONS: Getting fentanyl, Seroquel, trazodone, nicotine, methylnaltrexone, hydromorphone, Colace, amlodipine, Depakote, lisinopril, phenytoin, oxycodone, naloxone, baclofen, sodium chloride, lorazepam, Mylanta, albuterol and ipratropium inhaler, Proventil inhaler, Zofran, and Ambien. ALLERGIES: To aspirin, cephalexin, fish , ketorolac, and peanut. SOCIAL HISTORY: . Has two children. Smoker of less than 1 pack a day of cigarettes. Served in [employer] in [place] for 7 years. REVIEW OF SYSTEMS: No coughing. No shortness of breath. Has some abdominal pain. Right hip pain. No problem passing urine. Walks with cane. PHYSICAL EXAMINATION: VITAL SIGNS: Temperature 97.7 degrees, pulse 77, blood pressure is 134/87. GENERAL APPEARANCE: No acute distress. HEAD AND NECK: Godwin conjunctivae. HEART: S1 and S2 regular. LUNGS: Clear. ABDOMEN: Obese, soft, and mildly tender. EXTREMITIES: Has no edema. Has left arm PICC line that is present for 3 months. LABORATORY AND DIAGNOSTIC DATA: WBC 7000, hemoglobin 12.6, hematocrit 37.4, platelets 213,000. Sodium 138, potassium 3.6, chloride 104, bicarbonate 25, BUN 6, creatinine 0.6, platelets 171. Albumin is 2.4. Alkaline phosphatase is slightly elevated at 122. Chest x-ray was negative. IMPRESSION: This is a 41-year-old male with chronic pain because of osteosarcoma of femur, coming with chronic diarrhea. We tried to rule out Clostridium difficile and Giardia. The patient also had hepatitis C in the history, bipolar disorder, chronic obstructive pulmonary disease, posttraumatic stress distress, and chronic pain syndrome. RECOMMENDATION: We will send stool for C. difficile. We will send stool for Giardia. We will send stool for ova and parasites. We will observe without antibiotics for now. At the end of my exam, I thank Dr. Jeremiah Singh for involving me in the care of this patient. Juwan Hightower M.D. DR: Monica JOB#: [id number] CC:
--- NOTE | 2017-04-02 13:24 | Cardiac Electrophysiology PN ---
Assessment/Plan Assessment/Plan 1. Tachycardia due to sinus tach due to pain of osteosarcoma.Echo pending 2. HTN On [id number] and increase Lisinopril to 20 bid 3. Osteosarcoma S/P RT and chemo 4. Obesity. DW RN in room Subjective Subjective Still has Right leg pain.BP is high today also. Objective Last 24 Hour Vital Signs Date Time Temp Pulse Resp B/P (MAP) Pulse Ox O2 Delivery O2 Flow Rate FiO2 04/02/17 12:33 97.7 04/02/17 12:00 98.8 80 20 158/105 97 04/02/17 10:21 97.7 04/02/17 09:48 80 145/75 04/02/17 09:46 145/75 04/02/17 04:04 97.7 80 20 145/75 96 04/02/17 00:00 97.7 79 20 153/93 96 04/01/17 20:00 97.7 86 20 142/79 96 04/01/17 19:19 80 18 Room Air 21 Intake and Output 04/01/17 04/02/17 19:00 07:00 Intake Total 1470 ml 1300 ml Output Total 1 ml Balance 1469 ml 1300 ml Intake Oral 120 ml IV Total 1350 ml 1300 ml Output Urine Total 1 ml # Voids 2 Laboratory Tests Test 04/02/17 05:00 White Blood Count 8.8 K/UL (4.8-10.8) Red Blood Count 4.04 M/UL (4.70-6.10) L Hemoglobin 12.8 G/DL (14.2-18.0) L Hematocrit 37.8 % (42.0-52.0) L Mean Corpuscular Volume 94 FL (80-99) Mean Corpuscular Hemoglobin 31.7 PG (27.0-31.0) H Mean Corpuscular Hemoglobin Concent 33.9 G/DL (32.0-36.0) Red Cell Distribution Width 12.0 % (11.6-14.8) Platelet Count 239 K/UL (150-450) Mean Platelet Volume 7.0 FL (6.5-10.1) Neutrophils (%) (Auto) 58.4 % (45.0-75.0) Lymphocytes (%) (Auto) 31.5 % (20.0-45.0) Monocytes (%) (Auto) 7.5 % (1.0-10.0) Eosinophils (%) (Auto) 2.0 % (0.0-3.0) Basophils (%) (Auto) 0.6 % (0.0-2.0) Sodium Level 139 MMOL/L (136-145) Potassium Level 3.7 MMOL/L (3.5-5.1) Chloride Level 103 MMOL/L (98-107) Carbon Dioxide Level 24 MMOL/L (21-32) Anion Gap 12 mmol/L (5-15) Blood Urea Nitrogen 5 mg/dL (7-18) L Creatinine 0.6 MG/DL (0.55-1.30) Estimat Glomerular Filtration Rate > 60 mL/min (>60) Glucose Level 154 MG/DL (74-106) H Calcium Level 8.9 MG/DL (8.5-10.1) Microbiology Date/Time Source Procedure Growth Status 03/30/17 13:40 Blood Blood Culture - Preliminary NO GROWTH AFTER 48 HOURS Resulted 03/30/17 13:30 Blood Blood Culture - Preliminary NO GROWTH AFTER 48 HOURS Resulted 03/30/17 13:30 Nasal Nares Influenza Types A,B Antigen (ADAM) - Final Complete Objective EENT: PERRL/EOMI Neck: no JVD Rhythm: NSR Cardiovascular: normal rate, regular rhythm, tachycardia Respiratory/Chest: normal breath sounds, no respiratory distress Abdomen: soft Extremities: non-pitting Neurologic: door slinger II-XII grossly normal GAEL MAXWELL Apr 02, 2017 13:24
[2017-04-02 16:12] VITALS: BP 145/92
[2017-04-02 19:12] VITALS: BP 147/81
[2017-04-02] MEDS: Dyna-Hex 2% Top Sol 2oz TOPIC SCH (22:07)
[2017-04-02] MEDS: TraZODone 100mg tab ORAL SCH (22:08)
[2017-04-02] MEDS: Enoxaparin 40mg Inj SUBQ SCH (22:10)
[2017-04-02 23:18] VITALS: BP 146/91
[2017-04-02] MEDS: oxyCODONE 5mg IR tab ORAL PRN (23:52)
[2017-04-03] MEDS: LORazepam Inj 2mg/ml 1ml IV PRN (00:01)
--- NOTE | 2017-04-03 02:45 | Progress Note ---
DATE: 04/01/2017 SUBJECTIVE: This is a 41-year-old male with osteosarcoma and intractable pain. He had a lot of mood lability, but also agitation and depression secondary to the stress of his medical illness. So his attending physician has requested daily psychiatric consultation. MENTAL STATUS EXAMINATION: This is a 41-year-old male, psychomotor agitation. Mood is depressed. Affect is guarded and restricted. Thought process is disorganized and illogical. No signs of any suicidal or homicidal thoughts. Insight and judgment is poor. DIAGNOSIS: Bipolar 2. PLAN: Continue titrating up on this patient's Seroquel 100 mg at bedtime, Elavil 25 mg at bedtime, trazodone 100 mg at bedtime, and Depakote 1000 mg q.12 hours. Chart reviewed and discussed with staff. Supportive therapy provided for 16 to 20 minutes. Chart was reviewed and discussed with staff. Seen and assessed at the bedside. Awa Thomas M.D. DR: NORA JOB#: [id number] CC:
[2017-04-03 03:11] VITALS: BP 138/79
--- NOTE | 2017-04-03 06:00 | Progress Note ---
DATE: 04/02/2017 SUBJECTIVE: This is a 41-year-old patient with osteosarcoma. This is a patient who is confused and disorganized. His mood is labile. He has no logical plan for his own self-care. continues to still have racing thoughts and pressured speech pattern. MENTAL STATUS EXAMINATION: A 41-year-old male with psychomotor retardation. Mood is depressed. Affect guarded and restricted. Thought process is disorganized and illogical. Denies any current suicidal or homicidal thoughts. Insight and judgment is poor. Orientation x3. Speech is low volume. DIAGNOSIS: Bipolar 2. PLAN: Treat him with Depakote 1000 mg twice a day, trazodone 100 at bedtime, Seroquel 100 at bedtime, and Elavil 25 mg at bedtime. Provide him with supportive therapy, and encourage him to interact appropriately with staff. Chart reviewed and discussed with staff. Seen and assessed at bedside. Awa Thomas M.D. DR: CONSUELO JOB#: [id number] CC:
[2017-04-03 08:25] VITALS: BP 140/77
--- NOTE | 2017-04-03 08:27 | Pulmonology Progress Note ---
Assessment/Plan Assessment/Plan ASSESSMENT Osteosarcoma of femur Chronic pain syndrome COPD PTSD CVA old HTN nicotine dependency with withdrawal PLAN OF CARE MS floor pain management pain specialist follows O2 HHN prn CXR negative CP status stable Nicotine patch food counselor on smoking cessation DVT/GI prophylaxis PT/OT fall precautions Bowel regimen BP management with CCB and optimize as needed patient lost on purpose some weight, compared with previous, encourage healthy diet upon discharge dc plan per PMD, awaiting for SNF placement case discussed and evaluated by supervising physician Subjective Allergies: Coded Allergies: KETOROLAC (Verified Allergy, Severe, 08/06/16) ASPIRIN (Verified Allergy, Intermediate, 08/06/16) CEPHALEXIN (Verified Allergy, Mild, 12/13/14) FISH DERIVED (Unverified Allergy, Unknown, 08/29/16) PEANUT (Verified Allergy, Unknown, 11/19/15) Uncoded Allergies: fish (Allergy, Unknown, 08/12/16) Subjective ambulates with cane no SOB no wheezing, no CP pain intermittently controlled awaiting for placement Objective Last 24 Hour Vital Signs Date Time Temp Pulse Resp B/P (MAP) Pulse Ox O2 Delivery O2 Flow Rate FiO2 04/03/17 03:11 97.7 92 20 138/79 94 Room Air 04/03/17 01:45 97.7 04/02/17 23:18 97.7 83 20 146/91 93 Room Air 04/02/17 19:12 99.7 83 20 147/81 97 Room Air 04/02/17 19:00 87 18 Room Air 21 04/02/17 18:18 145/92 04/02/17 16:12 97.5 83 20 145/92 95 04/02/17 12:33 97.7 04/02/17 12:00 98.8 80 20 158/105 97 04/02/17 09:48 80 145/75 04/02/17 09:46 145/75 Intake and Output 04/02/17 04/03/17 19:00 07:00 Intake Total 1770 ml 1050 ml Balance 1770 ml 1050 ml Intake Oral 720 ml IV Total 1050 ml 1050 ml # Voids 5 Objective General Appearance: no acute distress, other - A/A/O x 4 morbidly obese male HEENT: normocephalic, atraumatic, anicteric, mucous membranes moist Respiratory/Chest: lungs clear - with moderate air exchange , no respiratory distress, no accessory muscle use Cardiovascular: normal rate, regular rhythm, no JVD Abdomen: normal bowel sounds, soft, non tender - obes Extremities: no edema, pedal pulses normal 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: abnormal gait - with cane, alert, oriented x 3, responsive Musculoskeletal: normal muscle bulk Current Medications Medications (Trade) Dose Ordered Sig/Robert Route PRN Reason Start Time Stop Time Status Last Admin Dose Admin Acetaminophen (Tylenol) 650 mg Q4H PRN ORAL fever 03/30/17 21:15 04/29/17 21:14 Al Hydroxide/Mg Hydroxide (Mylanta II) 30 ml Q6H PRN ORAL dyspepsia 03/30/17 22:00 04/29/17 21:59 Albuterol Sulfate (Proventil) 2.5 mg Q6H PRN HHN Persistent Shortness of Breath 03/30/17 21:15 04/04/17 21:14 Albuterol/ Ipratropium (Albuterol/ Ipratropium) 3 ml QIDPRN PRN HHN Shortness of Breath 04/02/17 11:30 04/07/17 11:29 Amitriptyline HCl (Elavil) 25 mg BEDTIME ORAL 03/31/17 21:00 04/30/17 20:59 Future Hold Amlodipine Besylate (Norvasc) 10 mg DAILY ORAL 03/31/17 09:00 04/30/17 08:59 04/02/17 09:48 Baclofen (Lioresal) 10 mg Q8H PRN ORAL muscle spasm 03/31/17 09:00 04/30/17 08:59 04/01/17 15:24 Chlorhexidine Gluconate (Babita-Hex 2%) 1 applic DAILY@1999 TOPIC 03/31/17 20:00 04/30/17 19:59 04/02/17 22:07 Dextrose (Dextrose 50%) STAT PRN IV Hypoglycemia 03/30/17 21:15 04/29/17 21:14 Divalproex Sodium (Depakote ER) 1,000 mg EVERY 12 HOURS ORAL 03/31/17 09:00 04/30/17 08:59 04/02/17 22:08 Docusate Sodium (Colace) 100 mg EVERY 12 HOURS ORAL 03/31/17 09:00 04/30/17 08:59 04/01/17 21:00 Enoxaparin Sodium (Lovenox) 40 mg QHS SUBQ 03/30/17 22:00 04/29/17 21:59 04/02/17 22:10 Fentanyl (Duragesic) 1 patch Q72H TDERMAL 04/02/17 12:00 04/09/17 11:59 04/02/17 12:03 Gabapentin (Neurontin) 300 mg THREE TIMES A DAY ORAL 03/31/17 10:30 04/30/17 10:29 04/02/17 18:18 Hydromorphone HCl (Dilaudid) 2 mg Q3H PRN IVP Severe Pain (Pain Scale 7-10) 03/31/17 09:15 04/06/17 21:14 04/03/17 01:15 Lisinopril (Prinivil) 20 mg BID ORAL 04/02/17 18:00 05/02/17 17:59 04/02/17 18:18 Lorazepam (Ativan 2mg/ml 1ml) 0.5 mg Q4H PRN IV For Anxiety 03/30/17 22:00 04/06/17 21:59 04/03/17 00:01 Lorazepam (Ativan) 1 mg Q4H PRN ORAL For Anxiety 03/30/17 21:15 04/06/17 21:14 Magnesium Hydroxide (Mom) 30 ml HSPRN PRN ORAL Constipation 03/30/17 21:15 04/29/17 21:14 Methylnaltrexone [place] (Relistor) 12 mg QOD SUBQ 03/31/17 10:30 04/30/17 10:29 Miscellaneous Medication (fentaNYL Destruction) 1 ea Q72H MISC 04/02/17 12:00 05/02/17 11:59 04/02/17 12:00 Naloxone HCl (Narcan) 0.1 mg PRN IV Sedation scale 3 or 4 03/31/17 09:00 Nicotine (Nicoderm) 1 patch Q24H TDERMAL 03/31/17 17:00 04/30/17 16:59 04/02/17 16:06 Nitroglycerin (Ntg) 0.4 mg Q5M X 3 DOSES PRN SL Prn Chest Pain 03/30/17 21:15 04/29/17 21:14 Ondansetron HCl (Zofran) 4 mg Q6H PRN IVP Nausea & Vomiting 03/30/17 21:15 04/29/17 21:14 04/02/17 16:06 Oxycodone HCl (Roxicodone) 10 mg Q4H PRN ORAL moderate breakthrough pain 03/31/17 09:00 04/07/17 08:59 04/02/17 23:52 Pantoprazole (Protonix) 40 mg DAILY ORAL 03/31/17 09:00 04/30/17 08:59 04/02/17 09:46 Phenytoin (Dilantin) 250 mg DAILY ORAL 03/31/17 09:00 04/30/17 08:59 04/02/17 09:47 Polyethylene Glycol (Miralax) 17 gm HSPRN PRN ORAL Constipation 03/30/17 22:00 04/29/17 21:59 Quetiapine Fumarate (SEROquel) 100 mg QHS ORAL 03/31/17 21:00 04/30/17 20:59 04/02/17 22:08 Sodium Chloride 1,000 ml @ 150 mls/hr Q6H40M IVLG 03/30/17 22:30 04/29/17 22:29 04/02/17 22:09 Trazodone HCl (Desyrel) 100 mg BEDTIME ORAL 03/31/17 21:00 04/30/17 20:59 04/02/17 22:08 Zolpidem Tartrate (Ambien) 5 mg HSPRN PRN ORAL Insomnia 03/30/17 21:15 04/06/17 21:14 [facility] Apr 03, 2017 08:27
[2017-04-03] MEDS: Docusate 100mg cap ORAL SCH ×2 (09:00→20:55)
--- NOTE | 2017-04-03 09:02 | General Progress Note ---
Assessment/Plan Problem List: (1) Chronic pain ICD Codes: G89.29 - Other chronic pain SNOMED: 18942249 (2) COPD (chronic obstructive pulmonary disease) ICD Codes: J44.9 - Chronic obstructive pulmonary disease, unspecified SNOMED: 19652416 (3) Psychiatric disorder ICD Codes: F99 - Mental disorder, not otherwise specified SNOMED: 11654529, 842549622 (4) PTSD (post-traumatic stress disorder) ICD Codes: F43.10 - Post-traumatic stress disorder, unspecified SNOMED: 07681598 (5) CVA (cerebral vascular accident) ICD Codes: I63.9 - Cerebral infarction, unspecified SNOMED: 420985265 (6) Intractable pain ICD Codes: R52 - Pain, unspecified SNOMED: 27455275 (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 - Malignant neoplasm of long bones of unspecified lower limb SNOMED: 898590728, 468906614 Qualifiers: Qualified Codes: C40.21 - Malignant neoplasm of long bones of right lower limb Status: stable, progressing, tolerating diet Assessment/Plan ot pt diet pain control cbc bmp am dc plan snf Subjective Constitutional: Reports: weakness Allergies: Coded Allergies: KETOROLAC (Verified Allergy, Severe, 08/06/16) ASPIRIN (Verified Allergy, Intermediate, 08/06/16) CEPHALEXIN (Verified Allergy, Mild, 12/13/14) FISH DERIVED (Unverified Allergy, Unknown, 08/29/16) PEANUT (Verified Allergy, Unknown, 11/19/15) Uncoded Allergies: fish (Allergy, Unknown, 08/12/16) All Systems: reviewed and negative except above Subjective sleepy calm Objective Last 24 Hour Vital Signs Date Time Temp Pulse Resp B/P (MAP) Pulse Ox O2 Delivery O2 Flow Rate FiO2 04/03/17 08:25 97.7 78 20 140/77 97 04/03/17 03:11 97.7 92 20 138/79 94 Room Air 04/03/17 01:45 97.7 04/02/17 23:18 97.7 83 20 146/91 93 Room Air 04/02/17 19:12 99.7 83 20 147/81 97 Room Air 04/02/17 19:00 87 18 Room Air 21 04/02/17 18:18 145/92 04/02/17 16:12 97.5 83 20 145/92 95 04/02/17 12:33 97.7 04/02/17 12:00 98.8 80 20 158/105 97 04/02/17 09:48 80 145/75 04/02/17 09:46 145/75 Intake and Output 04/02/17 04/03/17 19:00 07:00 Intake Total 1770 ml 1050 ml Balance 1770 ml 1050 ml Intake Oral 720 ml IV Total 1050 ml 1050 ml # Voids 5 Laboratory Tests 04/03/17 06:45: White Blood Count [Pending], Red Blood Count [Pending], Hemoglobin [Pending], Hematocrit [Pending], Mean Corpuscular Volume [Pending], Mean Corpuscular Hemoglobin [Pending], Mean Corpuscular Hemoglobin Concent [Pending], Red Cell Distribution Width [Pending], Platelet Count [Pending], Mean Platelet Volume [ Pending], Neutrophils (%) (Auto) [Pending], Lymphocytes (%) (Auto) [Pending], Monocytes (%) (Auto) [Pending], Eosinophils (%) (Auto) [Pending], Basophils (%) (Auto) [Pending], Sodium Level [Pending], Potassium Level [Pending], Chloride Level [Pending], Carbon Dioxide Level [Pending], Blood Urea Nitrogen [Pending], Creatinine [Pending], Estimat Glomerular Filtration Rate [Pending], Glucose Level [Pending], Calcium Level [Pending] Height (Feet): 5 Height (Inches): 9.00 Weight (Pounds): 270 General Appearance: lethargic EENT: normal ENT inspection Neck: normal alignment Cardiovascular: normal peripheral pulses, normal rate, regular rhythm Respiratory/Chest: chest wall non-tender, lungs clear, normal breath sounds Abdomen: normal bowel sounds, non tender, soft Extremities: normal inspection Edema: no edema noted Arm (L), no edema noted Arm (R), no edema noted Leg (L), no edema noted Leg (R), no edema noted Pedal (L), no edema noted Pedal (R), no edema noted Generalized Neurologic: responsive, motor weakness Skin: normal pigmentation, warm/dry MARQUEZ FOY Apr 03, 2017 09:02
[2017-04-03 09:07] LABS: BASOPHILS % (AUTO) 0.7 % (0.0-2.0); EOSINOPHILS % (AUTO) 1.9 % (0.0-3.0); HEMATOCRIT 35.9 % (42.0-52.0); HEMOGLOBIN 12.3 G/DL (14.2-18.0); LYMPHOCYTES % (AUTO) 32.5 % (20.0-45.0); MEAN CORPUSCULAR VOLUME 93 FL (80-99); MONOCYTES % (AUTO) 6.9 % (1.0-10.0); NEUTROPHILS % (AUTO) 58.2 % (45.0-75.0); PLATELET COUNT 195 K/UL (150-450); RED BLOOD COUNT 3.88 M/UL (4.70-6.10); WHITE BLOOD COUNT 7.2 K/UL (4.8-10.8)
[2017-04-03 09:29] LABS: ANION GAP 7 mmol/L (5-15); BLOOD UREA NITROGEN 5 mg/dL (7-18); CALCIUM 8.8 MG/DL (8.5-10.1); CARBON DIOXIDE 27 MMOL/L (21-32); CHLORIDE 105 MMOL/L (98-107); CREATININE 0.6 MG/DL (0.55-1.30); POTASSIUM 4.1 MMOL/L (3.5-5.1); SODIUM 139 MMOL/L (136-145)
[2017-04-03] MEDS: Phenytoin Susp 100mg/4ml ORAL SCH (10:00)
[2017-04-03] MEDS: Lisinopril 20mg tab ORAL SCH ×2 (10:00→17:38)
[2017-04-03] MEDS: Depakote ER 500mg tab ORAL SCH ×2 (10:01→20:49)
[2017-04-03 11:53] VITALS: BP 152/91
--- NOTE | 2017-04-03 15:13 | Cardiac Electrophysiology PN ---
Assessment/Plan Assessment/Plan 1. Sinus tach due to pain of osteosarcoma.Echo pending 2. HTN On [id number] and Lisinopril 20 bid 3. Osteosarcoma S/P RT and chemo 4. Obesity. DW RN in room Subjective Subjective Still has Right leg pain. No chest pain. Awaiting SNIF Objective Last 24 Hour Vital Signs Date Time Temp Pulse Resp B/P (MAP) Pulse Ox O2 Delivery O2 Flow Rate FiO2 04/03/17 13:53 97.5 04/03/17 11:53 97.5 82 20 152/91 95 04/03/17 10:01 78 140/77 04/03/17 10:00 140/77 04/03/17 08:25 97.7 78 20 140/77 97 04/03/17 03:11 97.7 92 20 138/79 94 Room Air 04/02/17 23:18 97.7 83 20 146/91 93 Room Air 04/02/17 19:12 99.7 83 20 147/81 97 Room Air 04/02/17 19:00 87 18 Room Air 21 04/02/17 18:18 145/92 04/02/17 16:12 97.5 83 20 145/92 95 Intake and Output 04/02/17 04/03/17 19:00 07:00 Intake Total 1770 ml 1200 ml Balance 1770 ml 1200 ml Intake Oral 720 ml IV Total 1050 ml 1200 ml # Voids 5 Laboratory Tests Test 04/03/17 06:45 White Blood Count 7.2 K/UL (4.8-10.8) Red Blood Count 3.88 M/UL (4.70-6.10) L Hemoglobin 12.3 G/DL (14.2-18.0) L Hematocrit 35.9 % (42.0-52.0) L Mean Corpuscular Volume 93 FL (80-99) Mean Corpuscular Hemoglobin 31.7 PG (27.0-31.0) H Mean Corpuscular Hemoglobin Concent 34.2 G/DL (32.0-36.0) Red Cell Distribution Width 12.0 % (11.6-14.8) Platelet Count 195 K/UL (150-450) Mean Platelet Volume 7.0 FL (6.5-10.1) Neutrophils (%) (Auto) 58.2 % (45.0-75.0) Lymphocytes (%) (Auto) 32.5 % (20.0-45.0) Monocytes (%) (Auto) 6.9 % (1.0-10.0) Eosinophils (%) (Auto) 1.9 % (0.0-3.0) Basophils (%) (Auto) 0.7 % (0.0-2.0) Sodium Level 139 MMOL/L (136-145) Potassium Level 4.1 MMOL/L (3.5-5.1) Chloride Level 105 MMOL/L (98-107) Carbon Dioxide Level 27 MMOL/L (21-32) Anion Gap 7 mmol/L (5-15) Blood Urea Nitrogen 5 mg/dL (7-18) L Creatinine 0.6 MG/DL (0.55-1.30) Estimat Glomerular Filtration Rate > 60 mL/min (>60) Glucose Level 178 MG/DL (74-106) H Calcium Level 8.8 MG/DL (8.5-10.1) Objective EENT: PERRL/EOMI Neck: no JVD Rhythm: NSR Cardiovascular: normal rate, regular rhythm, tachycardia Respiratory/Chest: normal breath sounds, no respiratory distress Abdomen: soft Extremities: non-pitting Neurologic: breaster II-XII grossly normal GAEL MAXWELL Apr 03, 2017 15:13
[2017-04-03 16:15] VITALS: BP 150/92
[2017-04-03] MEDS ORDERED: NS 275ml ONE (16:42)
[2017-04-03 19:15] VITALS: BP 147/90
[2017-04-03] MEDS: TraZODone 100mg tab ORAL SCH (20:49)
[2017-04-03] MEDS: Dyna-Hex 2% Top Sol 2oz TOPIC SCH (20:50)
[2017-04-03] MEDS: Enoxaparin 40mg Inj SUBQ SCH (20:52)
[2017-04-03 23:11] VITALS: BP 158/96
--- NOTE | 2017-04-03 23:14 | General Progress Note ---
Assessment/Plan Status: unchanged Assessment/Plan 1. Osteosarcoma. The patient is status post chemotherapy and radiation in the past. --> Continues to follow up with Dr. Chacorta Abbott. --> Hematology/Oncology Service was consulted for further evaluation and treatment. --> On pain control. 2. Anemia due to underlying chronic disease. --> Currently mild. No blood transfusion needed. --> Trend cbc daily. 3. Anemia due to kidney disease. --> Continue to closely monitor. 4. Diabetes mellitus, potentially related to poor control. 5. Leukocytosis, continue to monitor. 6. Underlying history of anemia. --> Currently, actually has improved. Subjective Date patient seen: Apr 01, 2017 Constitutional: Denies: no symptoms, chills, diaphoresis, fever, malaise, weakness, other HEENT: Denies: no symptoms, eye pain, blurred vision, tearing, double vision, ear pain, ear discharge, nose pain, nose congestion, throat pain, throat swelling, mouth pain, mouth swelling, other Cardiovascular: Denies: no symptoms, chest pain, edema, irregular heart rate, lightheadedness, palpitations, syncope, other Respiratory: Denies: no symptoms, cough, orthopnea, shortness of breath, SOB with excertion, SOB at rest, sputum, stridor, wheezing, other Gastrointestinal/Abdominal: Denies: no symptoms, abdomen distended, abdominal pain, black stools, tarry stools, blood in stool, constipated, diarrhea, difficulty swallowing, nausea, poor appetite, poor fluid intake, rectal bleeding , vomiting, other Genitourinary: Denies: no symptoms, burning, discharge, frequency, flank pain, hematuria, incontinence, pain, urgency, other Hematologic/Lymphatic: Reports: anemia Allergies: Coded Allergies: KETOROLAC (Verified Allergy, Severe, 08/06/16) ASPIRIN (Verified Allergy, Intermediate, 08/06/16) CEPHALEXIN (Verified Allergy, Mild, 12/13/14) FISH DERIVED (Unverified Allergy, Unknown, 08/29/16) PEANUT (Verified Allergy, Unknown, 11/19/15) Uncoded Allergies: fish (Allergy, Unknown, 08/12/16) Subjective On pain control. Remains confused. Objective Last 24 Hour Vital Signs Date Time Temp Pulse Resp B/P (MAP) Pulse Ox O2 Delivery O2 Flow Rate FiO2 04/03/17 22:44 98.6 04/03/17 20:39 88 20 Room Air 21 04/03/17 19:15 98.6 88 20 147/90 94 Room Air 04/03/17 17:38 150/92 04/03/17 16:25 96 Room Air 04/03/17 16:15 97.9 86 20 150/92 96 04/03/17 11:55 95 Room Air 04/03/17 11:53 97.5 82 20 152/91 95 04/03/17 10:01 78 140/77 04/03/17 10:00 140/77 04/03/17 08:25 97.7 78 20 140/77 97 04/03/17 08:24 97 04/03/17 03:11 97.7 92 20 138/79 94 Room Air 04/02/17 23:18 97.7 83 20 146/91 93 Room Air Intake and Output 04/02/17 04/03/17 19:00 07:00 Intake Total 1770 ml 1200 ml Balance 1770 ml 1200 ml Intake Oral 720 ml IV Total 1050 ml 1200 ml # Voids 5 Labs Test 04/01/17 07:30 04/02/17 05:00 04/03/17 06:45 White Blood Count 7.6 K/UL (4.8-10.8) 8.8 K/UL (4.8-10.8) 7.2 K/UL (4.8-10.8) Red Blood Count 4.03 M/UL (4.70-6.10) 4.04 M/UL (4.70-6.10) 3.88 M/UL (4.70-6.10) Hemoglobin 12.6 G/DL (14.2-18.0) 12.8 G/DL (14.2-18.0) 12.3 G/DL (14.2-18.0) Hematocrit 37.4 % (42.0-52.0) 37.8 % (42.0-52.0) 35.9 % (42.0-52.0) Mean Corpuscular Volume 93 FL (80-99) 94 FL (80-99) 93 FL (80-99) Mean Corpuscular Hemoglobin 31.3 PG (27.0-31.0) 31.7 PG (27.0-31.0) 31.7 PG (27.0-31.0) Mean Corpuscular Hemoglobin Concent 33.7 G/DL (32.0-36.0) 33.9 G/DL (32.0-36.0) 34.2 G/DL (32.0-36.0) Red Cell Distribution Width 12.3 % (11.6-14.8) 12.0 % (11.6-14.8) 12.0 % (11.6-14.8) Platelet Count 213 K/UL (150-450) 239 K/UL (150-450) 195 K/UL (150-450) Mean Platelet Volume 7.0 FL (6.5-10.1) 7.0 FL (6.5-10.1) 7.0 FL (6.5-10.1) Neutrophils (%) (Auto) 55.1 % (45.0-75.0) 58.4 % (45.0-75.0) 58.2 % (45.0-75.0) Lymphocytes (%) (Auto) 32.9 % (20.0-45.0) 31.5 % (20.0-45.0) 32.5 % (20.0-45.0) Monocytes (%) (Auto) 9.2 % (1.0-10.0) 7.5 % (1.0-10.0) 6.9 % (1.0-10.0) Eosinophils (%) (Auto) 2.2 % (0.0-3.0) 2.0 % (0.0-3.0) 1.9 % (0.0-3.0) Basophils (%) (Auto) 0.6 % (0.0-2.0) 0.6 % (0.0-2.0) 0.7 % (0.0-2.0) Sodium Level 138 MMOL/L (136-145) 139 MMOL/L (136-145) 139 MMOL/L (136-145) Potassium Level 3.6 MMOL/L (3.5-5.1) 3.7 MMOL/L (3.5-5.1) 4.1 MMOL/L (3.5-5.1) Chloride Level 104 MMOL/L (98-107) 103 MMOL/L (98-107) 105 MMOL/L (98-107) Carbon Dioxide Level 25 MMOL/L (21-32) 24 MMOL/L (21-32) 27 MMOL/L (21-32) Anion Gap 9 mmol/L (5-15) 12 mmol/L (5-15) 7 mmol/L (5-15) Blood Urea Nitrogen 6 mg/dL (7-18) 5 mg/dL (7-18) 5 mg/dL (7-18) Creatinine 0.6 MG/DL (0.55-1.30) 0.6 MG/DL (0.55-1.30) 0.6 MG/DL (0.55-1.30) Estimat Glomerular Filtration Rate > 60 mL/min (>60) > 60 mL/min (>60) > 60 mL/min (>60) Glucose Level 171 MG/DL (74-106) 154 MG/DL (74-106) 178 MG/DL (74-106) Calcium Level 8.5 MG/DL (8.5-10.1) 8.9 MG/DL (8.5-10.1) 8.8 MG/DL (8.5-10.1) Laboratory Tests 04/03/17 06:45: White Blood Count 7.2, Red Blood Count 3.88L, Hemoglobin 12.3L, Hematocrit 35.9L , Mean Corpuscular Volume 93, Mean Corpuscular Hemoglobin 31.7H, Mean Corpuscular Hemoglobin Concent 34.2, Red Cell Distribution Width 12.0, Platelet Count 195, Mean Platelet Volume 7.0, Neutrophils (%) (Auto) 58.2, Lymphocytes (% ) (Auto) 32.5, Monocytes (%) (Auto) 6.9, Eosinophils (%) (Auto) 1.9, Basophils ( %) (Auto) 0.7, Sodium Level 139, Potassium Level 4.1, Chloride Level 105, Carbon Dioxide Level 27, Anion Gap 7, Blood Urea Nitrogen 5L, Creatinine 0.6, Estimat Glomerular Filtration Rate > 60, Glucose Level 178H, Calcium Level 8.8 Height (Feet): 5 Height (Inches): 9.00 Weight (Pounds): 309 General Appearance: lethargic, confused Respiratory/Chest: decreased breath sounds Kleynberg,Bin L. Apr 03, 2017 23:14
--- NOTE | 2017-04-03 23:19 | General Progress Note ---
Assessment/Plan Assessment/Plan 1. Osteosarcoma. The patient is status post chemotherapy and radiation in the past. --> Continues to follow up with Dr. Chacorta Abbott. --> Hematology/Oncology Service was consulted for further evaluation and treatment. --> On pain control. 2. Anemia due to underlying chronic disease. --> Currently mild. No blood transfusion needed. --> Trend cbc daily. 3. Anemia due to kidney disease. --> Continue to closely monitor. 4. Diabetes mellitus, potentially related to poor control. 5. Leukocytosis, continue to monitor. 6. Underlying history of anemia. --> Currently, actually has improved. Subjective Date patient seen: Apr 02, 2017 Allergies: Coded Allergies: KETOROLAC (Verified Allergy, Severe, 08/06/16) ASPIRIN (Verified Allergy, Intermediate, 08/06/16) CEPHALEXIN (Verified Allergy, Mild, 12/13/14) FISH DERIVED (Unverified Allergy, Unknown, 08/29/16) PEANUT (Verified Allergy, Unknown, 11/19/15) Uncoded Allergies: fish (Allergy, Unknown, 08/12/16) Subjective On pain control. Remains confused. Objective Last 24 Hour Vital Signs Date Time Temp Pulse Resp B/P (MAP) Pulse Ox O2 Delivery O2 Flow Rate FiO2 04/03/17 22:44 98.6 04/03/17 20:39 88 20 Room Air 21 04/03/17 19:15 98.6 88 20 147/90 94 Room Air 04/03/17 17:38 150/92 04/03/17 16:25 96 Room Air 04/03/17 16:15 97.9 86 20 150/92 96 04/03/17 11:55 95 Room Air 04/03/17 11:53 97.5 82 20 152/91 95 04/03/17 10:01 78 140/77 04/03/17 10:00 140/77 04/03/17 08:25 97.7 78 20 140/77 97 04/03/17 08:24 97 04/03/17 03:11 97.7 92 20 138/79 94 Room Air Intake and Output 04/02/17 04/03/17 19:00 07:00 Intake Total 1770 ml 1200 ml Balance 1770 ml 1200 ml Intake Oral 720 ml IV Total 1050 ml 1200 ml # Voids 5 Laboratory Tests 04/03/17 06:45: White Blood Count 7.2, Red Blood Count 3.88L, Hemoglobin 12.3L, Hematocrit 35.9L , Mean Corpuscular Volume 93, Mean Corpuscular Hemoglobin 31.7H, Mean Corpuscular Hemoglobin Concent 34.2, Red Cell Distribution Width 12.0, Platelet Count 195, Mean Platelet Volume 7.0, Neutrophils (%) (Auto) 58.2, Lymphocytes (% ) (Auto) 32.5, Monocytes (%) (Auto) 6.9, Eosinophils (%) (Auto) 1.9, Basophils ( %) (Auto) 0.7, Sodium Level 139, Potassium Level 4.1, Chloride Level 105, Carbon Dioxide Level 27, Anion Gap 7, Blood Urea Nitrogen 5L, Creatinine 0.6, Estimat Glomerular Filtration Rate > 60, Glucose Level 178H, Calcium Level 8.8 Height (Feet): 5 Height (Inches): 9.00 Weight (Pounds): 309 Bin Abbott Apr 03, 2017 23:18
--- NOTE | 2017-04-03 23:26 | General Progress Note ---
Assessment/Plan Status: unchanged Assessment/Plan #. Osteosarcoma. The patient is status post chemotherapy and radiation in the past. --> Continues to follow up with Dr. Chacorta Abbott. --> Hematology/Oncology Service was consulted for further evaluation and treatment. --> On pain control - Dilaudid, Oxycodone, and Fentanyl patch #. Anemia due to underlying chronic disease. --> Currently mild. No blood transfusion needed. --> Trend cbc daily. #. Anemia due to kidney disease. --> Continue to closely monitor. #. Diabetes mellitus, --> potentially related to poor control as patient is obese. #. Leukocytosis, continue to monitor. --> Resolved at this time. #. Underlying history of anemia. --> Currently, actually has improved. Subjective Date patient seen: Apr 03, 2017 Constitutional: Denies: no symptoms, chills, diaphoresis, fever, malaise, weakness, other HEENT: Denies: no symptoms, eye pain, blurred vision, tearing, double vision, ear pain, ear discharge, nose pain, nose congestion, throat pain, throat swelling, mouth pain, mouth swelling, other Cardiovascular: Denies: no symptoms, chest pain, edema, irregular heart rate, lightheadedness, palpitations, syncope, other Respiratory: Denies: no symptoms, cough, orthopnea, shortness of breath, SOB with excertion, SOB at rest, sputum, stridor, wheezing, other Gastrointestinal/Abdominal: Denies: no symptoms, abdomen distended, abdominal pain, black stools, tarry stools, blood in stool, constipated, diarrhea, difficulty swallowing, nausea, poor appetite, poor fluid intake, rectal bleeding , vomiting, other Genitourinary: Denies: no symptoms, burning, discharge, frequency, flank pain, hematuria, incontinence, pain, urgency, other Hematologic/Lymphatic: Reports: anemia Allergies: Coded Allergies: KETOROLAC (Verified Allergy, Severe, 08/06/16) ASPIRIN (Verified Allergy, Intermediate, 08/06/16) CEPHALEXIN (Verified Allergy, Mild, 12/13/14) FISH DERIVED (Unverified Allergy, Unknown, 08/29/16) PEANUT (Verified Allergy, Unknown, 11/19/15) Uncoded Allergies: fish (Allergy, Unknown, 08/12/16) Subjective On pain control. Agitated and depressed. Objective Last 24 Hour Vital Signs Date Time Temp Pulse Resp B/P (MAP) Pulse Ox O2 Delivery O2 Flow Rate FiO2 04/03/17 22:44 98.6 04/03/17 20:39 88 20 Room Air 21 04/03/17 19:15 98.6 88 20 147/90 94 Room Air 04/03/17 17:38 150/92 04/03/17 16:25 96 Room Air 04/03/17 16:15 97.9 86 20 150/92 96 04/03/17 11:55 95 Room Air 04/03/17 11:53 97.5 82 20 152/91 95 04/03/17 10:01 78 140/77 04/03/17 10:00 140/77 04/03/17 08:25 97.7 78 20 140/77 97 04/03/17 08:24 97 04/03/17 03:11 97.7 92 20 138/79 94 Room Air Intake and Output 04/02/17 04/03/17 19:00 07:00 Intake Total 1770 ml 1200 ml Balance 1770 ml 1200 ml Intake Oral 720 ml IV Total 1050 ml 1200 ml # Voids 5 Laboratory Tests 04/03/17 06:45: White Blood Count 7.2, Red Blood Count 3.88L, Hemoglobin 12.3L, Hematocrit 35.9L , Mean Corpuscular Volume 93, Mean Corpuscular Hemoglobin 31.7H, Mean Corpuscular Hemoglobin Concent 34.2, Red Cell Distribution Width 12.0, Platelet Count 195, Mean Platelet Volume 7.0, Neutrophils (%) (Auto) 58.2, Lymphocytes (% ) (Auto) 32.5, Monocytes (%) (Auto) 6.9, Eosinophils (%) (Auto) 1.9, Basophils ( %) (Auto) 0.7, Sodium Level 139, Potassium Level 4.1, Chloride Level 105, Carbon Dioxide Level 27, Anion Gap 7, Blood Urea Nitrogen 5L, Creatinine 0.6, Estimat Glomerular Filtration Rate > 60, Glucose Level 178H, Calcium Level 8.8 Height (Feet): 5 Height (Inches): 9.00 Weight (Pounds): 309 General Appearance: confused, moderate distress, agitated Respiratory/Chest: decreased breath sounds Bin Abbott Apr 03, 2017 23:26
[2017-04-04 04:43] VITALS: BP 125/74
--- NOTE | 2017-04-04 05:36 | General Progress Note ---
Assessment/Plan Problem List: (1) Chronic pain ICD Codes: G89.29 - Other chronic pain SNOMED: 73562098 (2) COPD (chronic obstructive pulmonary disease) ICD Codes: J44.9 - Chronic obstructive pulmonary disease, unspecified SNOMED: 50185695 (3) Psychiatric disorder ICD Codes: F99 - Mental disorder, not otherwise specified SNOMED: 47397001, 169803242 (4) PTSD (post-traumatic stress disorder) ICD Codes: F43.10 - Post-traumatic stress disorder, unspecified SNOMED: 39772630 (5) CVA (cerebral vascular accident) ICD Codes: I63.9 - Cerebral infarction, unspecified SNOMED: 936959849 (6) Intractable pain ICD Codes: R52 - Pain, unspecified SNOMED: 55701150 (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 - Malignant neoplasm of long bones of unspecified lower limb SNOMED: 129119215, 215543182 Qualifiers: Qualified Codes: C40.21 - Malignant neoplasm of long bones of right lower limb Status: unchanged Assessment/Plan ot pt diet pain control cbc bmp am dc plan snf Subjective Constitutional: Reports: weakness Allergies: Coded Allergies: KETOROLAC (Verified Allergy, Severe, 08/06/16) ASPIRIN (Verified Allergy, Intermediate, 08/06/16) CEPHALEXIN (Verified Allergy, Mild, 12/13/14) FISH DERIVED (Unverified Allergy, Unknown, 08/29/16) PEANUT (Verified Allergy, Unknown, 11/19/15) Uncoded Allergies: fish (Allergy, Unknown, 08/12/16) All Systems: reviewed and negative except above Subjective sleepy calm Objective Last 24 Hour Vital Signs Date Time Temp Pulse Resp B/P (MAP) Pulse Ox O2 Delivery O2 Flow Rate FiO2 04/04/17 04:43 97.9 81 20 125/74 96 Room Air 04/03/17 23:11 97.2 96 20 158/96 96 Room Air 04/03/17 22:44 98.6 04/03/17 20:39 88 20 Room Air 21 04/03/17 19:15 98.6 88 20 147/90 94 Room Air 04/03/17 17:38 150/92 04/03/17 16:25 96 Room Air 04/03/17 16:15 97.9 86 20 150/92 96 04/03/17 11:55 95 Room Air 04/03/17 11:53 97.5 82 20 152/91 95 04/03/17 10:01 78 140/77 04/03/17 10:00 140/77 04/03/17 08:25 97.7 78 20 140/77 97 04/03/17 08:24 97 Intake and Output 04/03/17 04/04/17 19:00 07:00 Intake Total 2700 ml Balance 2700 ml Intake Oral 1200 ml IV Total 1500 ml # Voids 3 Laboratory Tests 04/03/17 06:45: White Blood Count 7.2, Red Blood Count 3.88L, Hemoglobin 12.3L, Hematocrit 35.9L , Mean Corpuscular Volume 93, Mean Corpuscular Hemoglobin 31.7H, Mean Corpuscular Hemoglobin Concent 34.2, Red Cell Distribution Width 12.0, Platelet Count 195, Mean Platelet Volume 7.0, Neutrophils (%) (Auto) 58.2, Lymphocytes (% ) (Auto) 32.5, Monocytes (%) (Auto) 6.9, Eosinophils (%) (Auto) 1.9, Basophils ( %) (Auto) 0.7, Sodium Level 139, Potassium Level 4.1, Chloride Level 105, Carbon Dioxide Level 27, Anion Gap 7, Blood Urea Nitrogen 5L, Creatinine 0.6, Estimat Glomerular Filtration Rate > 60, Glucose Level 178H, Calcium Level 8.8 Height (Feet): 5 Height (Inches): 9.00 Weight (Pounds): 309 General Appearance: lethargic EENT: normal ENT inspection Neck: normal alignment Cardiovascular: normal peripheral pulses, normal rate, regular rhythm Respiratory/Chest: chest wall non-tender, lungs clear, normal breath sounds Abdomen: normal bowel sounds, non tender, soft Extremities: normal inspection Edema: no edema noted Arm (L), no edema noted Arm (R), no edema noted Leg (L), no edema noted Leg (R), no edema noted Pedal (L), no edema noted Pedal (R), no edema noted Generalized Neurologic: responsive, motor weakness Skin: normal pigmentation, warm/dry MARQUEZ FOY Apr 04, 2017 05:36
[2017-04-04 08:00] VITALS: BP 141/71
[2017-04-04] MEDS: Phenytoin Susp 100mg/4ml ORAL SCH (08:40)
[2017-04-04] MEDS: Depakote ER 500mg tab ORAL SCH ×2 (08:40→21:03)
[2017-04-04] MEDS: Lisinopril 20mg tab ORAL SCH ×2 (08:41→18:07)
[2017-04-04] MEDS: Docusate 100mg cap ORAL SCH ×2 (08:49→21:03)
[2017-04-04] MEDS: Relistor 12mg/0.6ml Vial SUBQ SCH (08:49)
--- NOTE | 2017-04-04 10:44 | Infectious Diseases Prog Note ---
Assessment/Plan Assessment/Plan A; ?, Chronic diarrhea, no bowel movement in past few days R hip osteosarcoma Chronic pain P; observe off antibiotics Subjective ROS Limited/Unobtainable: Yes Allergies: Coded Allergies: KETOROLAC (Verified Allergy, Severe, 08/06/16) ASPIRIN (Verified Allergy, Intermediate, 08/06/16) CEPHALEXIN (Verified Allergy, Mild, 12/13/14) FISH DERIVED (Unverified Allergy, Unknown, 08/29/16) PEANUT (Verified Allergy, Unknown, 11/19/15) Uncoded Allergies: fish (Allergy, Unknown, 08/12/16) Objective Vital Signs Last 24 Hour Vital Signs Date Time Temp Pulse Resp B/P (MAP) Pulse Ox O2 Delivery O2 Flow Rate FiO2 04/04/17 08:41 141/71 04/04/17 08:41 81 141/71 04/04/17 08:25 86 20 Room Air 21 04/04/17 08:00 97.9 81 20 141/71 96 Room Air 04/04/17 04:43 97.9 81 20 125/74 96 Room Air 04/03/17 23:11 97.2 96 20 158/96 96 Room Air 04/03/17 22:44 98.6 04/03/17 20:39 88 20 Room Air 21 04/03/17 19:15 98.6 88 20 147/90 94 Room Air 04/03/17 17:38 150/92 04/03/17 16:25 96 Room Air 04/03/17 16:15 97.9 86 20 150/92 96 04/03/17 11:55 95 Room Air 04/03/17 11:53 97.5 82 20 152/91 95 Height (Feet): 5 Height (Inches): 9.00 Weight (Pounds): 309 HEENT: mucous membranes moist Respiratory/Chest: lungs clear Cardiovascular: normal rate, other - PICC line Abdomen: soft, non tender Extremities: no edema 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: other - sleeping Laboratory Tests Test 04/04/17 09:55 White Blood Count Pending Red Blood Count Pending Hemoglobin Pending Hematocrit Pending Mean Corpuscular Volume Pending Mean Corpuscular Hemoglobin Pending Mean Corpuscular Hemoglobin Concent Pending Red Cell Distribution Width Pending Platelet Count Pending Mean Platelet Volume Pending Neutrophils (%) (Auto) Pending Lymphocytes (%) (Auto) Pending Monocytes (%) (Auto) Pending Eosinophils (%) (Auto) Pending Basophils (%) (Auto) Pending Sodium Level Pending Potassium Level Pending Chloride Level Pending Carbon Dioxide Level Pending Blood Urea Nitrogen Pending Creatinine Pending Estimat Glomerular Filtration Rate Pending Glucose Level Pending Calcium Level Pending Current Medications Medications (Trade) Dose Ordered Sig/Robert Route PRN Reason Start Time Stop Time Status Last Admin Dose Admin Acetaminophen (Tylenol) 650 mg Q4H PRN ORAL fever 03/30/17 21:15 04/29/17 21:14 Al Hydroxide/Mg Hydroxide (Mylanta II) 30 ml Q6H PRN ORAL dyspepsia 03/30/17 22:00 04/29/17 21:59 Albuterol Sulfate (Proventil) 2.5 mg Q6H PRN HHN Persistent Shortness of Breath 03/30/17 21:15 04/04/17 21:14 Albuterol/ Ipratropium (Albuterol/ Ipratropium) 3 ml QIDPRN PRN HHN Shortness of Breath 04/02/17 11:30 04/07/17 11:29 Amitriptyline HCl (Elavil) 25 mg BEDTIME ORAL 03/31/17 21:00 04/30/17 20:59 Future Hold Amlodipine Besylate (Norvasc) 10 mg DAILY ORAL 03/31/17 09:00 04/30/17 08:59 04/04/17 08:41 Baclofen (Lioresal) 10 mg Q8H PRN ORAL muscle spasm 03/31/17 09:00 04/30/17 08:59 04/01/17 15:24 Chlorhexidine Gluconate (Babita-Hex 2%) 1 applic DAILY@2000 TOPIC 03/31/17 20:00 04/30/17 19:59 04/03/17 20:50 Dextrose (Dextrose 50%) STAT PRN IV Hypoglycemia 03/30/17 21:15 04/29/17 21:14 Divalproex Sodium (Depakote ER) 1,000 mg EVERY 12 HOURS ORAL 03/31/17 09:00 04/30/17 08:59 04/04/17 08:40 Docusate Sodium (Colace) 100 mg EVERY 12 HOURS ORAL 1/31/18 09:00 04/30/17 08:59 04/03/17 20:55 Enoxaparin Sodium (Lovenox) 40 mg QHS SUBQ 03/30/17 22:00 04/29/17 21:59 04/03/17 20:52 Fentanyl (Duragesic) 1 patch Q72H TDERMAL 04/02/17 12:00 04/09/17 11:59 04/02/17 12:03 Gabapentin (Neurontin) 300 mg THREE TIMES A DAY ORAL 03/31/17 10:30 04/30/17 10:29 04/04/17 08:41 Hydromorphone HCl (Dilaudid) 2 mg Q3H PRN IVP Severe Pain (Pain Scale 7-10) 03/31/17 09:15 04/06/17 21:14 04/04/17 08:42 Lisinopril (Prinivil) 20 mg BID ORAL 04/02/17 18:00 05/02/17 17:59 04/04/17 08:41 Lorazepam (Ativan 2mg/ml 1ml) 0.5 mg Q4H PRN IV For Anxiety 03/30/17 22:00 04/06/17 21:59 04/03/17 00:01 Lorazepam (Ativan) 1 mg Q4H PRN ORAL For Anxiety 03/30/17 21:15 04/06/17 21:14 Magnesium Hydroxide (Mom) 30 ml HSPRN PRN ORAL Constipation 03/30/17 21:15 04/29/17 21:14 Methylnaltrexone [place] (Relistor) 12 mg QOD SUBQ 03/31/17 10:30 04/30/17 10:29 Miscellaneous Medication (fentaNYL Destruction) 1 ea Q72H MISC 04/02/17 12:00 05/02/17 11:59 04/02/17 12:00 Naloxone HCl (Narcan) 0.1 mg PRN IV Sedation scale 3 or 4 03/31/17 09:00 Nicotine (Nicoderm) 1 patch Q24H TDERMAL 03/31/17 17:00 04/30/17 16:59 04/03/17 16:17 Nitroglycerin (Ntg) 0.4 mg Q5M X 3 DOSES PRN SL Prn Chest Pain 03/30/17 21:15 04/29/17 21:14 Ondansetron HCl (Zofran) 4 mg Q6H PRN IVP Nausea & Vomiting 03/30/17 21:15 04/29/17 21:14 04/02/17 16:06 Oxycodone HCl (Roxicodone) 10 mg Q4H PRN ORAL moderate breakthrough pain 03/31/17 09:00 04/07/17 08:59 04/02/17 23:52 Pantoprazole (Protonix) 40 mg DAILY ORAL 03/31/17 09:00 04/30/17 08:59 04/04/17 08:41 Phenytoin (Dilantin) 250 mg DAILY ORAL 03/31/17 09:00 04/30/17 08:59 04/04/17 08:40 Polyethylene Glycol (Miralax) 17 gm HSPRN PRN ORAL Constipation 03/30/17 22:00 04/29/17 21:59 Quetiapine Fumarate (SEROquel) 100 mg QHS ORAL 03/31/17 21:00 04/30/17 20:59 04/03/17 20:50 Sodium Chloride 1,000 ml @ 150 mls/hr Q6H40M IVLG 03/30/17 22:30 04/29/17 22:29 04/04/17 09:56 Trazodone HCl (Desyrel) 100 mg BEDTIME ORAL 03/31/17 21:00 04/30/17 20:59 04/03/17 20:49 Zolpidem Tartrate (Ambien) 5 mg HSPRN PRN ORAL Insomnia 03/30/17 21:15 04/06/17 21:14 DAREK SANCHEZ Apr 04, 2017 10:44
[2017-04-04 10:53] LABS: ANION GAP 8 mmol/L (5-15); BLOOD UREA NITROGEN 6 mg/dL (7-18); CALCIUM 7.1 MG/DL (8.5-10.1); CARBON DIOXIDE 24 MMOL/L (21-32); CHLORIDE 106 MMOL/L (98-107); CREATININE 0.5 MG/DL (0.55-1.30); POTASSIUM 3.2 MMOL/L (3.5-5.1); SODIUM 138 MMOL/L (136-145)
--- NOTE | 2017-04-04 11:00 | General Progress Note ---
Assessment/Plan Assessment/Plan (1) Osteosarcoma of femur (2) Morbid obesity (3) Chronic pain syndrome Pt will be continued on Fentanyl patch, Oxycodone and Dilaudid. Pt was d/w Dr. Muhammad and he concurred. Subjective Date patient seen: Apr 04, 2017 Allergies: Coded Allergies: KETOROLAC (Verified Allergy, Severe, 08/06/16) ASPIRIN (Verified Allergy, Intermediate, 08/06/16) CEPHALEXIN (Verified Allergy, Mild, 12/13/14) FISH DERIVED (Unverified Allergy, Unknown, 08/29/16) PEANUT (Verified Allergy, Unknown, 11/19/15) Uncoded Allergies: fish (Allergy, Unknown, 08/12/16) Subjective REVIEW OF SYSTEMS: Denies rash, fever, chills, sweating, dizziness, drowsiness, blurred vision, sore throat, change in weight. No chest pain. He is complaining of low back and lower extremity pain. SUBJECTIVE: Patient has pain which is worse with activities and has been tolerated on the increase of Fentanyl patch and continues to use the Dilaudid for breakthrough pain. Objective Last 24 Hour Vital Signs Date Time Temp Pulse Resp B/P (MAP) Pulse Ox O2 Delivery O2 Flow Rate FiO2 04/04/17 08:41 141/71 04/04/17 08:41 81 141/71 04/04/17 08:25 86 20 Room Air 21 04/04/17 08:00 97.9 81 20 141/71 96 Room Air 04/04/17 04:43 97.9 81 20 125/74 96 Room Air 04/03/17 23:11 97.2 96 20 158/96 96 Room Air 04/03/17 22:44 98.6 04/03/17 20:39 88 20 Room Air 21 04/03/17 19:15 98.6 88 20 147/90 94 Room Air 04/03/17 17:38 150/92 04/03/17 16:25 96 Room Air 04/03/17 16:15 97.9 86 20 150/92 96 04/03/17 11:55 95 Room Air 04/03/17 11:53 97.5 82 20 152/91 95 Intake and Output 04/03/17 04/04/17 19:00 07:00 Intake Total 2700 ml 520 ml Balance 2700 ml 520 ml Intake Oral 1200 ml 520 ml IV Total 1500 ml # Voids 3 2 Laboratory Tests 04/04/17 09:55: Sodium Level 138, Potassium Level 3.2L, Chloride Level 106, Carbon Dioxide Level 24, Anion Gap 8, Blood Urea Nitrogen 6L, Creatinine 0.5L, Estimat Glomerular Filtration Rate > 60, Glucose Level 184H, Calcium Level 7.1L Height (Feet): 5 Height (Inches): 9.00 Weight (Pounds): 309 Objective GENERAL: Alert and oriented x3. HEENT: PERRLA. NECK: Range of motion is full in all direction. No tenderness to paracervical muscles. No adenopathy. LUNGS: Decreased breath sounds bilaterally. HEART: Regular. ABDOMEN: Obese, tenderness to palpation BACK: Range of motion is decreased on flexion and extension with tenderness to paraspinal muscles. No tenderness to trapezius muscles. EXTREMITIES: No cyanosis, no clubbing, no edema. NEUROLOGICAL EXAM: Lower extremities range of motion is decreased due to patient's medical condition with motor being 4/5 in all muscles bilaterally. LIA HAGEN Apr 04, 2017 11:00
[2017-04-04 11:48] LABS: BASOPHILS % (AUTO) 1.1 % (0.0-2.0); EOSINOPHILS % (AUTO) 1.6 % (0.0-3.0); HEMATOCRIT 35.5 % (42.0-52.0); HEMOGLOBIN 12.2 G/DL (14.2-18.0); LYMPHOCYTES % (AUTO) 31.9 % (20.0-45.0); MEAN CORPUSCULAR VOLUME 92 FL (80-99); MONOCYTES % (AUTO) 7.8 % (1.0-10.0); NEUTROPHILS % (AUTO) 57.6 % (45.0-75.0); PLATELET COUNT 177 K/UL (150-450); RED BLOOD COUNT 3.86 M/UL (4.70-6.10); RED CELL DISTRIBUTION WIDTH 11.9 % (11.6-14.8); WHITE BLOOD COUNT 6.4 K/UL (4.8-10.8)
[2017-04-04 12:00] VITALS: BP 137/86
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
[2017-04-04] MEDS ORDERED: Zolpidem 5mg tab ORAL PRN (12:45)
[2017-04-04] MEDS ORDERED: LORazepam 1mg tab ORAL PRN (13:15)
[2017-04-04] MEDS ORDERED: Cathflo Alteplase 2mg Inj INJ ONE (13:30)
[2017-04-04 16:00] VITALS: BP 161/100
[2017-04-04 17:00] VITALS: BP 136/68
[2017-04-04 20:00] VITALS: BP 130/60
[2017-04-04] MEDS: Dyna-Hex 2% Top Sol 2oz TOPIC SCH (21:02)
[2017-04-04] MEDS: TraZODone 100mg tab ORAL SCH (21:02)
[2017-04-04] MEDS: Enoxaparin 40mg Inj SUBQ SCH (21:07)
--- NOTE | 2017-04-04 23:05 | Progress Note ---
DATE: 04/03/2017 SUBJECTIVE: The patient is a 41-year-old male intractable pain, still endorsing a lot of mood lability secondary to the chronic pain he is under. He has feelings of helplessness and hopelessness with racing thoughts and pressured speech. MENTAL STATUS EXAMINATION: The patient is a 41-year-old male with psychomotor agitation. Mood is irritable and agitated. Affect guarded and restricted. Thought process is disorganized. Denies any suicidal or homicidal thoughts. Insight and judgment are poor. DIAGNOSIS: Bipolar 2. PLAN: Depakote 1000 mg at bedtime, trazodone 100 mg at bedtime, Seroquel 100 mg at bedtime, and Elavil 25 mg at bedtime. Provide him with supportive therapy. Encouraged to interact with staff. Chart reviewed. Discussed with staff. Seen and assessed at bedside. Awa Thomas M.D. DR: LORI JOB#: [id number] CC:
--- NOTE | 2017-04-04 23:20 | General Progress Note ---
Assessment/Plan Assessment/Plan #. Osteosarcoma. The patient is status post chemotherapy and radiation in the past. --> Continues to follow up with Dr. Chacorta Abbott. --> Hematology/Oncology Service was consulted for further evaluation and treatment. --> On pain control - Dilaudid, Oxycodone, and Fentanyl patch --> Monitor closely. #. Anemia due to underlying chronic disease. --> Currently mild. No blood transfusion needed. --> Trend cbc daily. #. Anemia due to kidney disease. --> Continue to closely monitor. #. Diabetes mellitus, --> potentially related to poor control as patient is obese. #. Leukocytosis, continue to monitor. --> Resolved at this time. #. Underlying history of anemia. --> Currently, actually has improved. Subjective Date patient seen: Apr 04, 2017 Constitutional: Denies: no symptoms, chills, diaphoresis, fever, malaise, weakness, other HEENT: Denies: no symptoms, eye pain, blurred vision, tearing, double vision, ear pain, ear discharge, nose pain, nose congestion, throat pain, throat swelling, mouth pain, mouth swelling, other Cardiovascular: Denies: no symptoms, chest pain, edema, irregular heart rate, lightheadedness, palpitations, syncope, other Respiratory: Denies: no symptoms, cough, orthopnea, shortness of breath, SOB with excertion, SOB at rest, sputum, stridor, wheezing, other Gastrointestinal/Abdominal: Denies: no symptoms, abdomen distended, abdominal pain, black stools, tarry stools, blood in stool, constipated, diarrhea, difficulty swallowing, nausea, poor appetite, poor fluid intake, rectal bleeding , vomiting, other Genitourinary: Denies: no symptoms, burning, discharge, frequency, flank pain, hematuria, incontinence, pain, urgency, other 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: Denies: no symptoms, anxiety, depressed, emotional problems, headache, numbness, paresthesia, pre-existing deficit, seizure, tingling, tremors, weakness, other Allergies: Coded Allergies: KETOROLAC (Verified Allergy, Severe, 08/06/16) ASPIRIN (Verified Allergy, Intermediate, 08/06/16) CEPHALEXIN (Verified Allergy, Mild, 12/13/14) FISH DERIVED (Unverified Allergy, Unknown, 08/29/16) PEANUT (Verified Allergy, Unknown, 11/19/15) Uncoded Allergies: fish (Allergy, Unknown, 08/12/16) Subjective On pain control. Resting in bed. No new events. Objective Last 24 Hour Vital Signs Date Time Temp Pulse Resp B/P (MAP) Pulse Ox O2 Delivery O2 Flow Rate FiO2 04/04/17 19:50 81 20 Room Air 21 04/04/17 18:07 136/68 04/04/17 17:00 136/68 04/04/17 16:00 98.2 76 19 161/100 95 04/04/17 12:00 97.7 82 19 137/86 94 04/04/17 08:41 141/71 04/04/17 08:41 81 141/71 04/04/17 08:25 86 20 Room Air 21 04/04/17 08:00 97.9 81 20 141/71 96 Room Air 04/04/17 04:43 97.9 81 20 125/74 96 Room Air Intake and Output 04/03/17 04/04/17 19:00 07:00 Intake Total 2700 ml 520 ml Balance 2700 ml 520 ml Intake Oral 1200 ml 520 ml IV Total 1500 ml # Voids 3 2 Laboratory Tests 04/04/17 09:55: Sodium Level 138, Potassium Level 3.2L, Chloride Level 106, Carbon Dioxide Level 24, Anion Gap 8, Blood Urea Nitrogen 6L, Creatinine 0.5L, Estimat Glomerular Filtration Rate > 60, Glucose Level 184H, Calcium Level 7.1L 04/04/17 11:35: White Blood Count 6.4, Red Blood Count 3.86L, Hemoglobin 12.2L, Hematocrit 35.5L , Mean Corpuscular Volume 92, Mean Corpuscular Hemoglobin 31.5H, Mean Corpuscular Hemoglobin Concent 34.2, Red Cell Distribution Width 11.9, Platelet Count 177, Mean Platelet Volume 6.7, Neutrophils (%) (Auto) 57.6, Lymphocytes (% ) (Auto) 31.9, Monocytes (%) (Auto) 7.8, Eosinophils (%) (Auto) 1.6, Basophils ( %) (Auto) 1.1 Height (Feet): 5 Height (Inches): 9.00 Weight (Pounds): 309 Bin Abbott Apr 04, 2017 23:20
[2017-04-05] VITALS (7 sets, daily range): BP systolic 129–153; BP diastolic 76–98
--- NOTE | 2017-04-05 00:45 | Progress Note ---
DATE: 04/04/2017 SUBJECTIVE: This is a 41-year-old male patient with osteosarcoma. The patient continues to be confused and disorganized. Mood labile. He has got no logical plan for his own self-care. He has feelings of helplessness and hopelessness with extreme mood liability secondary to pain disorder. MENTAL STATUS EXAMINATION: The patient is a 41-year-old male with psychomotor agitation. Mood is irritable and agitated. Affect is guarded and restricted. Thought process is disorganized and illogical. Denies any suicidal or homicidal thoughts. Insight and judgment is poor. DIAGNOSIS: Bipolar 2. PLAN: Continue titrating up his Depakote to stabilize his mood. Provided him with supportive therapy 15 to 20 minutes and encouraged him to interact appropriately with staff. Chart was reviewed and discussed with staff. Seen and assessed in his room. Awa Thomas M.D. DR: NICHELLE JOB#: [id number] CC:
--- NOTE | 2017-04-05 08:43 | General Progress Note ---
Assessment/Plan Assessment/Plan (1) Osteosarcoma of femur (2) Morbid obesity (3) Chronic pain syndrome Pt will be continued on Fentanyl patch, Oxycodone and Dilaudid. Pt was d/w Dr. Muhammad and he concurred. Subjective Date patient seen: Apr 05, 2017 Time patient seen: 07:00 - am Allergies: Coded Allergies: KETOROLAC (Verified Allergy, Severe, 08/06/16) ASPIRIN (Verified Allergy, Intermediate, 08/06/16) CEPHALEXIN (Verified Allergy, Mild, 12/13/14) FISH DERIVED (Unverified Allergy, Unknown, 08/29/16) PEANUT (Verified Allergy, Unknown, 11/19/15) Uncoded Allergies: fish (Allergy, Unknown, 08/12/16) Subjective REVIEW OF SYSTEMS: Denies rash, fever, chills, sweating, dizziness, drowsiness, blurred vision, sore throat, change in weight. No chest pain. He is complaining of low back and lower extremity pain. SUBJECTIVE: Patient explains that his pain has been stable and tolerated on the Fentanyl patch, Oxycodone and Dilaudid. He is waiting to be seen by Oncologist. Objective Last 24 Hour Vital Signs Date Time Temp Pulse Resp B/P (MAP) Pulse Ox O2 Delivery O2 Flow Rate FiO2 04/05/17 04:00 97.4 74 18 130/94 90 Room Air 04/05/17 00:00 98.0 70 20 132/98 94 04/04/17 20:00 130/60 04/04/17 19:50 81 20 Room Air 21 04/04/17 18:07 136/68 04/04/17 17:00 136/68 04/04/17 16:00 98.2 76 19 161/100 95 04/04/17 12:00 97.7 82 19 137/86 94 Intake and Output 04/04/17 04/05/17 19:00 07:00 Intake Total 1530 ml 540 ml Balance 1530 ml 540 ml Intake Oral 480 ml 540 ml IV Total 1050 ml Laboratory Tests 04/04/17 09:55: Sodium Level 138, Potassium Level 3.2L, Chloride Level 106, Carbon Dioxide Level 24, Anion Gap 8, Blood Urea Nitrogen 6L, Creatinine 0.5L, Estimat Glomerular Filtration Rate > 60, Glucose Level 184H, Calcium Level 7.1L 04/04/17 11:35: White Blood Count 6.4, Red Blood Count 3.86L, Hemoglobin 12.2L, Hematocrit 35.5L , Mean Corpuscular Volume 92, Mean Corpuscular Hemoglobin 31.5H, Mean Corpuscular Hemoglobin Concent 34.2, Red Cell Distribution Width 11.9, Platelet Count 177, Mean Platelet Volume 6.7, Neutrophils (%) (Auto) 57.6, Lymphocytes (% ) (Auto) 31.9, Monocytes (%) (Auto) 7.8, Eosinophils (%) (Auto) 1.6, Basophils ( %) (Auto) 1.1 Height (Feet): 5 Height (Inches): 9.00 Weight (Pounds): 309 Objective GENERAL: Alert and oriented x3. HEENT: PERRLA. NECK: Range of motion is full in all direction. No tenderness to paracervical muscles. No adenopathy. LUNGS: Decreased breath sounds bilaterally. HEART: Regular. ABDOMEN: Obese, tenderness to palpation BACK: Range of motion is decreased on flexion and extension with tenderness to paraspinal muscles. No tenderness to trapezius muscles. EXTREMITIES: No cyanosis, no clubbing, no edema. NEUROLOGICAL EXAM: Lower extremities range of motion is decreased due to patient's medical condition with motor being 4/5 in all muscles bilaterally. LIA HAGEN Apr 05, 2017 08:43
[2017-04-05] MEDS: Docusate 100mg cap ORAL SCH ×2 (09:00→20:19)
[2017-04-05] MEDS: Phenytoin Susp 100mg/4ml ORAL SCH (09:36)
[2017-04-05] MEDS: Lisinopril 20mg tab ORAL SCH ×2 (09:37→18:55)
[2017-04-05] MEDS: Depakote ER 500mg tab ORAL SCH ×2 (09:45→20:20)
[2017-04-05 10:13] LABS: BASOPHILS % (AUTO) 0.8 % (0.0-2.0); EOSINOPHILS % (AUTO) 1.8 % (0.0-3.0); HEMATOCRIT 38.1 % (42.0-52.0); HEMOGLOBIN 12.9 G/DL (14.2-18.0); MEAN CORPUSCULAR VOLUME 92 FL (80-99); MONOCYTES % (AUTO) 9.2 % (1.0-10.0); NEUTROPHILS % (AUTO) 59.2 % (45.0-75.0); PLATELET COUNT 191 K/UL (150-450); RED BLOOD COUNT 4.15 M/UL (4.70-6.10); RED CELL DISTRIBUTION WIDTH 11.9 % (11.6-14.8); WHITE BLOOD COUNT 6.9 K/UL (4.8-10.8)
[2017-04-05 10:20] LABS: ANION GAP 7 mmol/L (5-15); BLOOD UREA NITROGEN 7 mg/dL (7-18); CALCIUM 8.5 MG/DL (8.5-10.1); CARBON DIOXIDE 28 MMOL/L (21-32); CHLORIDE 102 MMOL/L (98-107); CREATININE 0.5 MG/DL (0.55-1.30); SODIUM 137 MMOL/L (136-145)
--- NOTE | 2017-04-05 11:44 | Cardiac Electrophysiology PN ---
Assessment/Plan Assessment/Plan 1. Sinus tach due to pain of osteosarcoma.Echo still pending 2. HTN On [id number] and Lisinopril 20 bid 3. Osteosarcoma S/P RT and chemo 4. Obesity. DW RN Subjective Subjective Still has Right leg pain. No chest pain or SOB. No new event Objective Last 24 Hour Vital Signs Date Time Temp Pulse Resp B/P (MAP) Pulse Ox O2 Delivery O2 Flow Rate FiO2 04/05/17 09:37 150/89 04/05/17 09:37 80 150/89 04/05/17 08:00 98.2 80 20 150/89 97 04/05/17 08:00 Room Air 04/05/17 07:50 72 20 Room Air 21 04/05/17 04:00 97.4 74 18 130/94 90 Room Air 04/05/17 00:00 98.0 70 20 132/98 94 04/04/17 20:00 130/60 04/04/17 19:50 81 20 Room Air 21 04/04/17 18:07 136/68 04/04/17 17:00 136/68 04/04/17 16:00 98.2 76 19 161/100 95 04/04/17 12:00 97.7 82 19 137/86 94 Intake and Output 04/04/17 04/05/17 19:00 07:00 Intake Total 1530 ml 540 ml Balance 1530 ml 540 ml Intake Oral 480 ml 540 ml IV Total 1050 ml Laboratory Tests Test 04/05/17 09:30 White Blood Count 6.9 K/UL (4.8-10.8) Red Blood Count 4.15 M/UL (4.70-6.10) L Hemoglobin 12.9 G/DL (14.2-18.0) L Hematocrit 38.1 % (42.0-52.0) L Mean Corpuscular Volume 92 FL (80-99) Mean Corpuscular Hemoglobin 31.2 PG (27.0-31.0) H Mean Corpuscular Hemoglobin Concent 33.9 G/DL (32.0-36.0) Red Cell Distribution Width 11.9 % (11.6-14.8) Platelet Count 191 K/UL (150-450) Mean Platelet Volume 7.2 FL (6.5-10.1) Neutrophils (%) (Auto) 59.2 % (45.0-75.0) Lymphocytes (%) (Auto) 29.0 % (20.0-45.0) Monocytes (%) (Auto) 9.2 % (1.0-10.0) Eosinophils (%) (Auto) 1.8 % (0.0-3.0) Basophils (%) (Auto) 0.8 % (0.0-2.0) Sodium Level 137 MMOL/L (136-145) Potassium Level 4.0 MMOL/L (3.5-5.1) Chloride Level 102 MMOL/L (98-107) Carbon Dioxide Level 28 MMOL/L (21-32) Anion Gap 7 mmol/L (5-15) Blood Urea Nitrogen 7 mg/dL (7-18) Creatinine 0.5 MG/DL (0.55-1.30) L Estimat Glomerular Filtration Rate > 60 mL/min (>60) Glucose Level 131 MG/DL (74-106) H Calcium Level 8.5 MG/DL (8.5-10.1) Magnesium Level 1.6 MG/DL (1.8-2.4) L Objective EENT: PERRL/EOMI Neck: no JVD Rhythm: NSR Cardiovascular: normal rate, regular rhythm, tachycardia Respiratory/Chest: normal breath sounds, no respiratory distress Abdomen: soft Extremities: non-pitting 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
[2017-04-05] MEDS: fentaNYL Destruction MISC SCH (12:00)
--- NOTE | 2017-04-05 12:52 | General Progress Note ---
Assessment/Plan Problem List: (1) Chronic pain ICD Codes: G89.29 - Other chronic pain SNOMED: 07312220 (2) COPD (chronic obstructive pulmonary disease) ICD Codes: J44.9 - Chronic obstructive pulmonary disease, unspecified SNOMED: 53253273 (3) Psychiatric disorder ICD Codes: F99 - Mental disorder, not otherwise specified SNOMED: 39672666, 872544171 (4) PTSD (post-traumatic stress disorder) ICD Codes: F43.10 - Post-traumatic stress disorder, unspecified SNOMED: 98297527 (5) CVA (cerebral vascular accident) ICD Codes: I63.9 - Cerebral infarction, unspecified SNOMED: 573302196 (6) Intractable pain ICD Codes: R52 - Pain, unspecified SNOMED: 67677894 (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 - Malignant neoplasm of long bones of unspecified lower limb SNOMED: 419429361, 441892010 Qualifiers: Qualified Codes: C40.21 - Malignant neoplasm of long bones of right lower limb Status: stable, progressing, tolerating diet Assessment/Plan ot pt diet pain control cbc bmp am dc plan snf Subjective Constitutional: Reports: weakness Allergies: Coded Allergies: KETOROLAC (Verified Allergy, Severe, 08/06/16) ASPIRIN (Verified Allergy, Intermediate, 08/06/16) CEPHALEXIN (Verified Allergy, Mild, 12/13/14) FISH DERIVED (Unverified Allergy, Unknown, 08/29/16) PEANUT (Verified Allergy, Unknown, 11/19/15) Uncoded Allergies: fish (Allergy, Unknown, 08/12/16) All Systems: reviewed and negative except above Subjective sleepy calm sl gen pain Objective Last 24 Hour Vital Signs Date Time Temp Pulse Resp B/P (MAP) Pulse Ox O2 Delivery O2 Flow Rate FiO2 04/05/17 09:37 150/89 04/05/17 09:37 80 150/89 04/05/17 08:00 98.2 80 20 150/89 97 04/05/17 08:00 Room Air 04/05/17 07:50 72 20 Room Air 21 04/05/17 04:00 97.4 74 18 130/94 90 Room Air 04/05/17 00:00 98.0 70 20 132/98 94 04/04/17 20:00 130/60 04/04/17 19:50 81 20 Room Air 21 04/04/17 18:07 136/68 04/04/17 17:00 136/68 04/04/17 16:00 98.2 76 19 161/100 95 Intake and Output 04/04/17 04/05/17 19:00 07:00 Intake Total 1530 ml 540 ml Balance 1530 ml 540 ml Intake Oral 480 ml 540 ml IV Total 1050 ml Laboratory Tests 04/05/17 09:30: White Blood Count 6.9, Red Blood Count 4.15L, Hemoglobin 12.9L, Hematocrit 38.1L , Mean Corpuscular Volume 92, Mean Corpuscular Hemoglobin 31.2H, Mean Corpuscular Hemoglobin Concent 33.9, Red Cell Distribution Width 11.9, Platelet Count 191, Mean Platelet Volume 7.2, Neutrophils (%) (Auto) 59.2, Lymphocytes (% ) (Auto) 29.0, Monocytes (%) (Auto) 9.2, Eosinophils (%) (Auto) 1.8, Basophils ( %) (Auto) 0.8, Sodium Level 137, Potassium Level 4.0, Chloride Level 102, Carbon Dioxide Level 28, Anion Gap 7, Blood Urea Nitrogen 7, Creatinine 0.5L, Estimat Glomerular Filtration Rate > 60, Glucose Level 131H, Calcium Level 8.5, Magnesium Level 1.6L Height (Feet): 5 Height (Inches): 9.00 Weight (Pounds): 308 General Appearance: alert EENT: normal ENT inspection Neck: normal alignment Cardiovascular: normal peripheral pulses, normal rate, regular rhythm Respiratory/Chest: chest wall non-tender, lungs clear, normal breath sounds Abdomen: normal bowel sounds, non tender, soft Extremities: normal inspection Edema: no edema noted Arm (L), no edema noted Arm (R), no edema noted Leg (L), no edema noted Leg (R), no edema noted Pedal (L), no edema noted Pedal (R), no edema noted Generalized Neurologic: responsive, motor weakness Skin: normal pigmentation, warm/dry MARQUEZ FOY Apr 05, 2017 12:52
[2017-04-05] MEDS: Magnesium Oxide 400mg tab ORAL SCH (15:41)
--- NOTE | 2017-04-05 18:05 | Pulmonology Progress Note ---
Assessment/Plan Problems: (1) Chronic pain (2) COPD (chronic obstructive pulmonary disease) (3) Osteosarcoma of femur (4) Intractable pain (5) Opiate dependence (6) CVA (cerebral vascular accident) Assessment/Plan pain management respiratory treatment f/u by oncology titrate fio2 to sat of 92% Subjective ROS Limited/Unobtainable: No Constitutional: Reports: no symptoms HEENT: Repors: no symptoms Respiratory: Reports: no symptoms Allergies: Coded Allergies: KETOROLAC (Verified Allergy, Severe, 08/06/16) ASPIRIN (Verified Allergy, Intermediate, 08/06/16) CEPHALEXIN (Verified Allergy, Mild, 12/13/14) FISH DERIVED (Unverified Allergy, Unknown, 08/29/16) PEANUT (Verified Allergy, Unknown, 11/19/15) Uncoded Allergies: fish (Allergy, Unknown, 08/12/16) Objective Last 24 Hour Vital Signs Date Time Temp Pulse Resp B/P (MAP) Pulse Ox O2 Delivery O2 Flow Rate FiO2 04/05/17 16:00 Room Air 04/05/17 16:00 98.2 88 20 153/86 92 04/05/17 12:00 Room Air 04/05/17 12:00 98.1 84 20 149/96 98 04/05/17 09:37 150/89 04/05/17 09:37 80 150/89 04/05/17 08:00 98.2 80 20 150/89 97 04/05/17 08:00 Room Air 04/05/17 07:50 72 20 Room Air 21 04/05/17 04:00 97.4 74 18 130/94 90 Room Air 04/05/17 00:00 98.0 70 20 132/98 94 04/04/17 20:00 130/60 04/04/17 19:50 81 20 Room Air 21 04/04/17 18:07 136/68 Intake and Output 04/04/17 04/05/17 19:00 07:00 Intake Total 1530 ml 540 ml Balance 1530 ml 540 ml Intake Oral 480 ml 540 ml IV Total 1050 ml Objective General Appearance: WN Lines, tubes and drains: peripheral HEENT: normocephalic, atraumatic Neck: non-tender, normal alignment Respiratory/Chest: chest wall non-tender, lungs clear Cardiovascular/Chest: normal peripheral pulses, normal rate Abdomen: normal bowel sounds, non tender Genitourinary/Rectal: normal genital exam, normal rectal exam Skin Exam: normal pigmentation Laboratory Tests 04/05/17 09:30: White Blood Count 6.9, Red Blood Count 4.15L, Hemoglobin 12.9L, Hematocrit 38.1L , Mean Corpuscular Volume 92, Mean Corpuscular Hemoglobin 31.2H, Mean Corpuscular Hemoglobin Concent 33.9, Red Cell Distribution Width 11.9, Platelet Count 191, Mean Platelet Volume 7.2, Neutrophils (%) (Auto) 59.2, Lymphocytes (% ) (Auto) 29.0, Monocytes (%) (Auto) 9.2, Eosinophils (%) (Auto) 1.8, Basophils ( %) (Auto) 0.8, Sodium Level 137, Potassium Level 4.0, Chloride Level 102, Carbon Dioxide Level 28, Anion Gap 7, Blood Urea Nitrogen 7, Creatinine 0.5L, Estimat Glomerular Filtration Rate > 60, Glucose Level 131H, Calcium Level 8.5, Magnesium Level 1.6L Current Medications Medications (Trade) Dose Ordered Sig/Robert Route PRN Reason Start Time Stop Time Status Last Admin Dose Admin Acetaminophen (Tylenol) 650 mg Q4H PRN ORAL fever 03/30/17 21:15 04/29/17 21:14 Al Hydroxide/Mg Hydroxide (Mylanta II) 30 ml Q6H PRN ORAL dyspepsia 03/30/17 22:00 04/29/17 21:59 Albuterol/ Ipratropium (Albuterol/ Ipratropium) 3 ml QIDPRN PRN HHN Shortness of Breath 04/02/17 11:30 04/07/17 11:29 Amitriptyline HCl (Elavil) 25 mg BEDTIME ORAL 03/31/17 21:00 04/30/17 20:59 Future Hold Amlodipine Besylate (Norvasc) 10 mg DAILY ORAL 03/31/17 09:00 04/30/17 08:59 04/05/17 09:37 Baclofen (Lioresal) 10 mg Q8H PRN ORAL muscle spasm 03/31/17 09:00 04/30/17 08:59 04/01/17 15:24 Chlorhexidine Gluconate (Babita-Hex 2%) 1 applic DAILY@1999 TOPIC 03/31/17 20:00 04/30/17 19:59 04/04/17 21:02 Dextrose (Dextrose 50%) STAT PRN IV Hypoglycemia 03/30/17 21:15 04/29/17 21:14 Divalproex Sodium (Depakote ER) 1,000 mg EVERY 12 HOURS ORAL 03/31/17 09:00 04/30/17 08:59 04/05/17 09:45 Docusate Sodium (Colace) 100 mg EVERY 12 HOURS ORAL 03/31/17 09:00 04/30/17 08:59 04/04/17 21:03 Enoxaparin Sodium (Lovenox) 40 mg QHS SUBQ 03/30/17 22:00 04/29/17 21:59 04/04/17 21:07 Fentanyl (Duragesic) 1 patch Q72H TDERMAL 04/02/17 12:00 04/09/17 11:59 04/05/17 14:50 Gabapentin (Neurontin) 300 mg THREE TIMES A DAY ORAL 03/31/17 10:30 04/30/17 10:29 04/05/17 14:47 Hydromorphone HCl (Dilaudid) 2 mg Q3H PRN IVP Severe Pain (Pain Scale 7-10) 04/04/17 15:15 04/10/17 23:59 04/05/17 15:42 Lisinopril (Prinivil) 20 mg BID ORAL 04/02/17 18:00 05/02/17 17:59 04/05/17 09:37 Lorazepam (Ativan 2mg/ml 1ml) 0.5 mg Q4H PRN IV For Anxiety 04/04/17 14:00 04/11/17 23:59 Lorazepam (Ativan) 1 mg Q4H PRN ORAL For Anxiety 04/04/17 13:15 04/11/17 23:59 Magnesium Hydroxide (Mom) 30 ml HSPRN PRN ORAL Constipation 03/30/17 21:15 04/29/17 21:14 Magnesium Oxide (Mag-Ox 400mg) 400 mg DAILY ORAL 04/05/17 15:00 04/14/17 09:01 04/05/17 15:41 Methylnaltrexone [place] (Relistor) 12 mg QOD SUBQ 03/31/17 10:30 04/30/17 10:29 Miscellaneous Medication (fentaNYL Destruction) 1 ea Q72H MISC 04/02/17 12:00 05/02/17 11:59 04/05/17 12:00 Naloxone HCl (Narcan) 0.1 mg PRN IV Sedation scale 3 or 4 03/31/17 09:00 Nicotine (Nicoderm) 1 patch Q24H TDERMAL 03/31/17 17:00 04/30/17 16:59 04/05/17 17:38 Nitroglycerin (Ntg) 0.4 mg Q5M X 3 DOSES PRN SL Prn Chest Pain 03/30/17 21:15 04/29/17 21:14 Ondansetron HCl (Zofran) 4 mg Q6H PRN IVP Nausea & Vomiting 03/30/17 21:15 04/29/17 21:14 04/02/17 16:06 Oxycodone HCl (Roxicodone) 10 mg Q4H PRN ORAL moderate breakthrough pain 03/31/17 09:00 04/07/17 08:59 04/02/17 23:52 Pantoprazole (Protonix) 40 mg DAILY ORAL 03/31/17 09:00 04/30/17 08:59 04/05/17 09:36 Phenytoin (Dilantin) 250 mg DAILY ORAL 03/31/17 09:00 04/30/17 08:59 04/05/17 09:36 Polyethylene Glycol (Miralax) 17 gm HSPRN PRN ORAL Constipation 03/30/17 22:00 04/29/17 21:59 Quetiapine Fumarate (SEROquel) 100 mg QHS ORAL 03/31/17 21:00 04/30/17 20:59 04/04/17 21:02 Sodium Chloride 1,000 ml @ 150 mls/hr Q6H40M IVLG 03/30/17 22:30 04/29/17 22:29 04/05/17 11:50 Trazodone HCl (Desyrel) 100 mg BEDTIME ORAL 03/31/17 21:00 04/30/17 20:59 04/04/17 21:02 Zolpidem Tartrate (Ambien) 5 mg HSPRN PRN ORAL Insomnia 04/04/17 12:45 04/11/17 23:59 LAUREN OCHOA Apr 05, 2017 18:05
--- NOTE | 2017-04-05 18:33 | Cardiology Report ---
APPROVED REPORT EXAM: Two-dimensional and M-mode echocardiogram with Doppler and color Doppler. INDICATION Congestive Heart Failure M-Mode DIMENSIONS IVSd1.2 (0.7-1.1cm)Left Atrium (MM)4.7 (1.6-4.0cm) LVDd4.4 (3.5-5.6cm)Aortic Root3.2 (2.0-3.7cm) PWd1.0 (0.7-1.1cm)Aortic Cusp Exc.2.0 (1.5-2.0cm) LVDs2.9 (2.5-4.0cm) PWs1.0 cm Technically difficult study due to poor acoustical windows. Normal left ventricular chamber size, systolic function and wall motion. Left ventricular ejection fraction estimated to be 55-60%. No evidence of left ventricular hypertrophy. Small posterior pericardial effusion. Mild bi-atrial enlargement by 2D. Focal aortic valve sclerosis with adequate cusp excursion. Thickened mitral valve leaflets with normal excursion. Mild mitral annulus and aortic root calcification. Pulmonic valve is well visualized. Normal tricuspid valve structure. IVC is normal in size and collapsible with respiration. A color flow and spectral Doppler study was performed and revealed: No aortic regurgitation. No mitral regurgitation. Mitral inflow velocities indicates possible pseudo normalization pattern implying significant left ventricular diastolic dysfunction. No tricuspid regurgitation. Pulmonic regurgitation present.
[2017-04-05] MEDS: Dyna-Hex 2% Top Sol 2oz TOPIC SCH (20:18)
[2017-04-05] MEDS: TraZODone 100mg tab ORAL SCH (20:20)
[2017-04-05] MEDS: Enoxaparin 40mg Inj SUBQ SCH (20:22)
--- NOTE | 2017-04-05 22:52 | General Progress Note ---
Assessment/Plan Assessment/Plan #. 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 Anemia due to underlying chronic disease. --> Currently mild. No blood transfusion needed. --> Trend cbc daily. --> Hemoglobin goal >7 #. Anemia due to kidney disease. --> Continue to closely monitor. #. Diabetes mellitus, --> potentially related to poor control as patient is obese. #. Leukocytosis, continue to monitor. --> Resolved at this time. Subjective Date patient seen: Apr 05, 2017 Constitutional: Denies: no symptoms, chills, diaphoresis, fever, malaise, weakness, other HEENT: Denies: no symptoms, eye pain, blurred vision, tearing, double vision, ear pain, ear discharge, nose pain, nose congestion, throat pain, throat swelling, mouth pain, mouth swelling, other Cardiovascular: Denies: no symptoms, chest pain, edema, irregular heart rate, lightheadedness, palpitations, syncope, other Respiratory: Denies: no symptoms, cough, orthopnea, shortness of breath, SOB with excertion, SOB at rest, sputum, stridor, wheezing, other Gastrointestinal/Abdominal: Denies: no symptoms, abdomen distended, abdominal pain, black stools, tarry stools, blood in stool, constipated, diarrhea, difficulty swallowing, nausea, poor appetite, poor fluid intake, rectal bleeding , vomiting, other Genitourinary: Denies: no symptoms, burning, discharge, frequency, flank pain, hematuria, incontinence, pain, urgency, other Hematologic/Lymphatic: Reports: anemia Allergies: Coded Allergies: KETOROLAC (Verified Allergy, Severe, 08/06/16) ASPIRIN (Verified Allergy, Intermediate, 08/06/16) CEPHALEXIN (Verified Allergy, Mild, 12/13/14) FISH DERIVED (Unverified Allergy, Unknown, 08/29/16) PEANUT (Verified Allergy, Unknown, 11/19/15) Uncoded Allergies: fish (Allergy, Unknown, 08/12/16) Subjective Remains confused. H/H stable. No new events. Objective Last 24 Hour Vital Signs Date Time Temp Pulse Resp B/P (MAP) Pulse Ox O2 Delivery O2 Flow Rate FiO2 04/05/17 19:08 96.8 88 20 129/76 97 Room Air 04/05/17 18:55 129/76 04/05/17 16:00 Room Air 04/05/17 16:00 98.2 88 20 153/86 92 04/05/17 12:00 Room Air 04/05/17 12:00 98.1 84 20 149/96 98 04/05/17 09:37 150/89 04/05/17 09:37 80 150/89 04/05/17 08:00 98.2 80 20 150/89 97 04/05/17 08:00 Room Air 04/05/17 07:50 72 20 Room Air 21 04/05/17 04:00 97.4 74 18 130/94 90 Room Air 04/05/17 00:00 98.0 70 20 132/98 94 Intake and Output 04/04/17 04/05/17 19:00 07:00 Intake Total 1530 ml 540 ml Balance 1530 ml 540 ml Intake Oral 480 ml 540 ml IV Total 1050 ml Laboratory Tests 04/05/17 09:30: White Blood Count 6.9, Red Blood Count 4.15L, Hemoglobin 12.9L, Hematocrit 38.1L , Mean Corpuscular Volume 92, Mean Corpuscular Hemoglobin 31.2H, Mean Corpuscular Hemoglobin Concent 33.9, Red Cell Distribution Width 11.9, Platelet Count 191, Mean Platelet Volume 7.2, Neutrophils (%) (Auto) 59.2, Lymphocytes (% ) (Auto) 29.0, Monocytes (%) (Auto) 9.2, Eosinophils (%) (Auto) 1.8, Basophils ( %) (Auto) 0.8, Sodium Level 137, Potassium Level 4.0, Chloride Level 102, Carbon Dioxide Level 28, Anion Gap 7, Blood Urea Nitrogen 7, Creatinine 0.5L, Estimat Glomerular Filtration Rate > 60, Glucose Level 131H, Calcium Level 8.5, Magnesium Level 1.6L Height (Feet): 5 Height (Inches): 9.00 Weight (Pounds): 308 General Appearance: confused Respiratory/Chest: decreased breath sounds Abdomen: non tender, soft Bin Abbott Apr 05, 2017 22:52
--- NOTE | 2017-04-05 23:00 | Progress Note ---
DATE: 04/05/2017 NOTE: POOR AUDIO SUBJECTIVE: This is a 41-year-old patient with osteosarcoma. He is confused and disorganized. He is mood labile. He has a lot of itching and lot of pain, but he is stating that mood lability and agitation. Confused. intermittent suicidal ideation, but he is able to contract for safety in the hospital. . He does endorse racing thoughts and agitation. MENTAL STATUS EXAMINATION: The patient is a 41-year-old male with psychomotor agitation. Mood is irritable and agitated. Affect is guarded and restricted. Intellect poor. . Motor activity, psychomotor agitation. Attention span is poor. Orientation x2. Speech is pressured. Thought process is disorganized. Though content, paranoid. Denies suicidal or homicidal thoughts at this time. Insight and judgment is poor. PLAN: Continue to treat him with Depakote to stabilize his mood and 15 to 20 minutes of supportive therapy provided. Chart was reviewed and discussed with staff. Seen and assessed at the bedside. Awa Thomas M.D. DR: NORA JOB#: [id number] CC:
[2017-04-06 04:00] VITALS: BP 130/85
[2017-04-06 07:28] LABS: BASOPHILS % (AUTO) 0.6 % (0.0-2.0); EOSINOPHILS % (AUTO) 1.7 % (0.0-3.0); HEMATOCRIT 36.8 % (42.0-52.0); HEMOGLOBIN 12.7 G/DL (14.2-18.0); LYMPHOCYTES % (AUTO) 26.8 % (20.0-45.0); MEAN CORPUSCULAR VOLUME 93 FL (80-99); MONOCYTES % (AUTO) 9.8 % (1.0-10.0); NEUTROPHILS % (AUTO) 61.2 % (45.0-75.0); PLATELET COUNT 201 K/UL (150-450); RED BLOOD COUNT 3.98 M/UL (4.70-6.10); WHITE BLOOD COUNT 6.2 K/UL (4.8-10.8)
[2017-04-06 07:35] LABS: ANION GAP 9 mmol/L (5-15); BLOOD UREA NITROGEN 6 mg/dL (7-18); CALCIUM 7.4 MG/DL (8.5-10.1); CARBON DIOXIDE 23 MMOL/L (21-32); CHLORIDE 105 MMOL/L (98-107); CREATININE 0.6 MG/DL (0.55-1.30); POTASSIUM 3.3 MMOL/L (3.5-5.1); SODIUM 137 MMOL/L (136-145)
[2017-04-06 08:06] VITALS: BP 140/74
[2017-04-06] MEDS: Depakote ER 500mg tab ORAL SCH ×2 (08:31→21:09)
[2017-04-06] MEDS: Lisinopril 20mg tab ORAL SCH ×2 (08:32→18:19)
[2017-04-06] MEDS: Magnesium Oxide 400mg tab ORAL SCH (08:32)
[2017-04-06] MEDS: Phenytoin Susp 100mg/4ml ORAL SCH (08:32)
--- NOTE | 2017-04-06 08:48 | General Progress Note ---
Assessment/Plan Assessment/Plan (1) Osteosarcoma of femur (2) Morbid obesity (3) Chronic pain syndrome Pt will be continued on Fentanyl patch, Oxycodone and Dilaudid. Pt was d/w Dr. Muhammad and he concurred. Subjective Date patient seen: Apr 06, 2017 Time patient seen: 07:30 - am Allergies: Coded Allergies: KETOROLAC (Verified Allergy, Severe, 08/06/16) ASPIRIN (Verified Allergy, Intermediate, 08/06/16) CEPHALEXIN (Verified Allergy, Mild, 12/13/14) FISH DERIVED (Unverified Allergy, Unknown, 08/29/16) PEANUT (Verified Allergy, Unknown, 11/19/15) Uncoded Allergies: fish (Allergy, Unknown, 08/12/16) Subjective REVIEW OF SYSTEMS: Denies rash, fever, chills, sweating, dizziness, drowsiness, blurred vision, sore throat, change in weight. No chest pain. He is complaining of low back and lower extremity pain. SUBJECTIVE: Patient reports that his pain has been stable. He is going for an MRI of his right femur as per the oncologist to further asses his femur. I discussed the case with the Oncologist. Objective Last 24 Hour Vital Signs Date Time Temp Pulse Resp B/P (MAP) Pulse Ox O2 Delivery O2 Flow Rate FiO2 04/06/17 08:34 87 140/74 04/06/17 08:32 140/74 04/06/17 08:16 87 20 Room Air 21 04/06/17 08:06 98.2 82 20 140/74 95 04/06/17 05:37 98.1 04/06/17 04:00 98.1 85 20 130/85 95 04/05/17 23:13 98.1 106 20 149/92 97 04/05/17 19:08 96.8 88 20 129/76 97 Room Air 04/05/17 18:55 129/76 04/05/17 16:00 Room Air 04/05/17 16:00 98.2 88 20 153/86 92 04/05/17 12:00 Room Air 04/05/17 12:00 98.1 84 20 149/96 98 04/05/17 09:37 150/89 04/05/17 09:37 80 150/89 Intake and Output 04/05/17 04/06/17 19:00 07:00 Intake Total 2360 ml 1500 ml Balance 2360 ml 1500 ml Intake Oral 560 ml IV Total 1800 ml 1500 ml # Voids 3 # Bowel Movements 1 Laboratory Tests 04/05/17 09:30: White Blood Count 6.9, Red Blood Count 4.15L, Hemoglobin 12.9L, Hematocrit 38.1L , Mean Corpuscular Volume 92, Mean Corpuscular Hemoglobin 31.2H, Mean Corpuscular Hemoglobin Concent 33.9, Red Cell Distribution Width 11.9, Platelet Count 191, Mean Platelet Volume 7.2, Neutrophils (%) (Auto) 59.2, Lymphocytes (% ) (Auto) 29.0, Monocytes (%) (Auto) 9.2, Eosinophils (%) (Auto) 1.8, Basophils ( %) (Auto) 0.8, Sodium Level 137, Potassium Level 4.0, Chloride Level 102, Carbon Dioxide Level 28, Anion Gap 7, Blood Urea Nitrogen 7, Creatinine 0.5L, Estimat Glomerular Filtration Rate > 60, Glucose Level 131H, Calcium Level 8.5, Magnesium Level 1.6L 04/06/17 05:00: White Blood Count 6.2, Red Blood Count 3.98L, Hemoglobin 12.7L, Hematocrit 36.8L , Mean Corpuscular Volume 93, Mean Corpuscular Hemoglobin 31.8H, Mean Corpuscular Hemoglobin Concent 34.4, Red Cell Distribution Width 12.0, Platelet Count 201, Mean Platelet Volume 7.0, Neutrophils (%) (Auto) 61.2, Lymphocytes (% ) (Auto) 26.8, Monocytes (%) (Auto) 9.8, Eosinophils (%) (Auto) 1.7, Basophils ( %) (Auto) 0.6, Sodium Level 137, Potassium Level 3.3L, Chloride Level 105, Carbon Dioxide Level 23, Anion Gap 9, Blood Urea Nitrogen 6L, Creatinine 0.6, Estimat Glomerular Filtration Rate > 60, Glucose Level 195H, Calcium Level 7.4L Height (Feet): 5 Height (Inches): 9.00 Weight (Pounds): 308 Objective GENERAL: Alert and oriented x3. HEENT: PERRLA. NECK: Range of motion is full in all direction. No tenderness to paracervical muscles. No adenopathy. LUNGS: Decreased breath sounds bilaterally. HEART: Regular. ABDOMEN: Obese, tenderness to palpation BACK: Range of motion is decreased on flexion and extension with tenderness to paraspinal muscles. No tenderness to trapezius muscles. EXTREMITIES: No cyanosis, no clubbing, no edema. NEUROLOGICAL EXAM: Lower extremities range of motion is decreased due to patient's medical condition with motor being 4/5 in all muscles bilaterally. LIA HAGEN. Apr 06, 2017 08:48
[2017-04-06] MEDS: Relistor 12mg/0.6ml Vial SUBQ SCH (08:49)
[2017-04-06] MEDS: Docusate 100mg cap ORAL SCH ×2 (08:49→21:08)
[2017-04-06] MEDS ORDERED: oxyCODONE 5mg IR tab ORAL PRN (09:00)
--- NOTE | 2017-04-06 10:11 | Cardiac Electrophysiology PN ---
Assessment/Plan Assessment/Plan 1. Sinus tach due to pain of osteosarcoma.Echo EF 55% 2. HTN On [place]59 and Lisinopril 20 bid 3. Osteosarcoma S/P RT and chemo. Getting MRI today 4. Obesity. DW RN Subjective Subjective Still has Right leg pain. No chest pain or SOB.Going for MRI leg today. Objective Last 24 Hour Vital Signs Date Time Temp Pulse Resp B/P (MAP) Pulse Ox O2 Delivery O2 Flow Rate FiO2 04/06/17 08:34 87 140/74 04/06/17 08:32 140/74 04/06/17 08:16 87 20 Room Air 21 04/06/17 08:06 98.2 82 20 140/74 95 04/06/17 05:37 98.1 04/06/17 04:00 98.1 85 20 130/85 95 04/05/17 23:13 98.1 106 20 149/92 97 04/05/17 19:08 96.8 88 20 129/76 97 Room Air 04/05/17 18:55 129/76 04/05/17 16:00 Room Air 04/05/17 16:00 98.2 88 20 153/86 92 04/05/17 12:00 Room Air 04/05/17 12:00 98.1 84 20 149/96 98 Intake and Output 04/05/17 04/06/17 19:00 07:00 Intake Total 2360 ml 1500 ml Balance 2360 ml 1500 ml Intake Oral 560 ml IV Total 1800 ml 1500 ml # Voids 3 # Bowel Movements 1 Laboratory Tests Test 04/06/17 05:00 White Blood Count 6.2 K/UL (4.8-10.8) Red Blood Count 3.98 M/UL (4.70-6.10) L Hemoglobin 12.7 G/DL (14.2-18.0) L Hematocrit 36.8 % (42.0-52.0) L Mean Corpuscular Volume 93 FL (80-99) Mean Corpuscular Hemoglobin 31.8 PG (27.0-31.0) H Mean Corpuscular Hemoglobin Concent 34.4 G/DL (32.0-36.0) Red Cell Distribution Width 12.0 % (11.6-14.8) Platelet Count 201 K/UL (150-450) Mean Platelet Volume 7.0 FL (6.5-10.1) Neutrophils (%) (Auto) 61.2 % (45.0-75.0) Lymphocytes (%) (Auto) 26.8 % (20.0-45.0) Monocytes (%) (Auto) 9.8 % (1.0-10.0) Eosinophils (%) (Auto) 1.7 % (0.0-3.0) Basophils (%) (Auto) 0.6 % (0.0-2.0) Sodium Level 137 MMOL/L (136-145) Potassium Level 3.3 MMOL/L (3.5-5.1) L Chloride Level 105 MMOL/L (98-107) Carbon Dioxide Level 23 MMOL/L (21-32) Anion Gap 9 mmol/L (5-15) Blood Urea Nitrogen 6 mg/dL (7-18) L Creatinine 0.6 MG/DL (0.55-1.30) Estimat Glomerular Filtration Rate > 60 mL/min (>60) Glucose Level 195 MG/DL (74-106) H Calcium Level 7.4 MG/DL (8.5-10.1) L Objective Neck: no JVD Rhythm: NSR Cardiovascular: normal rate, regular rhythm, tachycardia Respiratory/Chest: normal breath sounds, no respiratory distress Abdomen: soft Extremities: non-pitting 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
--- NOTE | 2017-04-06 13:00 | General Progress Note ---
Assessment/Plan Problem List: (1) Chronic pain ICD Codes: G89.29 - Other chronic pain SNOMED: 24421424 (2) COPD (chronic obstructive pulmonary disease) ICD Codes: J44.9 - Chronic obstructive pulmonary disease, unspecified SNOMED: 22575943 (3) Psychiatric disorder ICD Codes: F99 - Mental disorder, not otherwise specified SNOMED: 39675650, 722716408 (4) PTSD (post-traumatic stress disorder) ICD Codes: F43.10 - Post-traumatic stress disorder, unspecified SNOMED: 77336930 (5) CVA (cerebral vascular accident) ICD Codes: I63.9 - Cerebral infarction, unspecified SNOMED: 574290019 (6) Intractable pain ICD Codes: R52 - Pain, unspecified SNOMED: 66655165 (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 - Malignant neoplasm of long bones of unspecified lower limb SNOMED: 465121394, 335018641 Qualifiers: Qualified Codes: C40.21 - Malignant neoplasm of long bones of right lower limb Status: unchanged Assessment/Plan ot pt diet pain control cbc bmp am dc plan snf Subjective Constitutional: Reports: weakness Allergies: Coded Allergies: KETOROLAC (Verified Allergy, Severe, 08/06/16) ASPIRIN (Verified Allergy, Intermediate, 08/06/16) CEPHALEXIN (Verified Allergy, Mild, 12/13/14) FISH DERIVED (Unverified Allergy, Unknown, 08/29/16) PEANUT (Verified Allergy, Unknown, 11/19/15) Uncoded Allergies: fish (Allergy, Unknown, 08/12/16) All Systems: reviewed and negative except above Subjective sleepy calm sl gen pain Objective Last 24 Hour Vital Signs Date Time Temp Pulse Resp B/P (MAP) Pulse Ox O2 Delivery O2 Flow Rate FiO2 04/06/17 08:34 87 140/74 04/06/17 08:32 140/74 04/06/17 08:16 87 20 Room Air 21 04/06/17 08:06 98.2 82 20 140/74 95 04/06/17 05:37 98.1 04/06/17 04:00 98.1 85 20 130/85 95 04/05/17 23:13 98.1 106 20 149/92 97 04/05/17 19:08 96.8 88 20 129/76 97 Room Air 04/05/17 18:55 129/76 04/05/17 16:00 Room Air 04/05/17 16:00 98.2 88 20 153/86 92 Intake and Output 04/05/17 04/06/17 19:00 07:00 Intake Total 2360 ml 1500 ml Balance 2360 ml 1500 ml Intake Oral 560 ml IV Total 1800 ml 1500 ml # Voids 3 # Bowel Movements 1 Laboratory Tests 04/06/17 05:00: White Blood Count 6.2, Red Blood Count 3.98L, Hemoglobin 12.7L, Hematocrit 36.8L , Mean Corpuscular Volume 93, Mean Corpuscular Hemoglobin 31.8H, Mean Corpuscular Hemoglobin Concent 34.4, Red Cell Distribution Width 12.0, Platelet Count 201, Mean Platelet Volume 7.0, Neutrophils (%) (Auto) 61.2, Lymphocytes (% ) (Auto) 26.8, Monocytes (%) (Auto) 9.8, Eosinophils (%) (Auto) 1.7, Basophils ( %) (Auto) 0.6, Sodium Level 137, Potassium Level 3.3L, Chloride Level 105, Carbon Dioxide Level 23, Anion Gap 9, Blood Urea Nitrogen 6L, Creatinine 0.6, Estimat Glomerular Filtration Rate > 60, Glucose Level 195H, Calcium Level 7.4L Height (Feet): 5 Height (Inches): 9.00 Weight (Pounds): 308 General Appearance: lethargic EENT: normal ENT inspection Neck: normal alignment Cardiovascular: normal peripheral pulses, normal rate, regular rhythm Respiratory/Chest: chest wall non-tender, lungs clear, normal breath sounds Abdomen: normal bowel sounds, non tender, soft Extremities: normal inspection Edema: no edema noted Arm (L), no edema noted Arm (R), no edema noted Leg (L), no edema noted Leg (R), no edema noted Pedal (L), no edema noted Pedal (R), no edema noted Generalized Neurologic: motor weakness Skin: normal pigmentation, warm/dry MARQUEZ FOY Apr 06, 2017 13:00
[2017-04-06 15:40] VITALS: BP 126/73
--- NOTE | 2017-04-06 15:53 | Diagnostic Imaging Report ---
Indication: Right leg pain Technique: Axial, sagittal, coronal T1 and STIR images, coronal T2 fat saturated, pre and postcontrast axial T1 fat saturated images of the right femur Comparison: Reference made to plain radiograph of the femur dated 08/30/2016 Findings: In the distal femoral metadiaphysis within the medulla, there is a lesion which measures 3.3 cm transverse by 3.1 cm AP by 6.7 cm craniocaudad. This has central low signal on all sequences in a rings and arcs configuration consistent with an similar to the calcifications demonstrated on recent plain radiograph. Peripheral to this, there is high STIR and low-dose T1 signal, with enhancement on the postcontrast images representing the chondroid matrix. There is no endosteal scalloping. There is no evidence of cortical involvement or cortical breakthrough or extraosseous abnormality. There is evidence of full-thickness chondrosis of the articular surface of the patella. Some subchondral low signal most likely represents degenerative change. No evidence of fracture. No other marrow signal abnormality. No dislocations. Prominent but not frankly enlarged right inguinal lymph nodes are demonstrated. No muscular abnormality. The neurovascular bundle appears unremarkable. Impression: Lesion of the distal femur, as described, appearance consistent with an enchondroma. Low-grade chondrosarcoma not completely excludable. Note that the dimensions of the calcified portion of the lesion appear unchanged from plain radiograph of 08/30/2016, favoring a benign process. Correlation with any prior cross-sectional imaging studies may be available is recommended. There are degenerative changes of the patella, as described Findings discussed by phone with Dr. Abbott at the time of interpretation
--- NOTE | 2017-04-06 16:45 | Progress Note ---
DATE: 04/06/2017 SUBJECTIVE: This is a 41-year-old male patient with osteosarcoma and intractable pain. This patient continues to have some mood lability and confusion. Complaining a lot about pain, but also talking about how it is making him severely depressed although he is able to contact for safety in the hospital. MENTAL STATUS EXAMINATION: The patient is a 41-year-old male with psychomotor agitation. Mood is irritable and agitated. Affect is guarded and restricted. Thought process is disorganized and illogical. Denies any current suicidal or homicidal thoughts. Insight and judgment is poor. He has some paranoid delusions. Racing thoughts. Orientation x2. Speech is low volume and slurred. DIAGNOSIS: Bipolar 2. PLAN: Plan is to treat this patient with Seroquel 100 mg at bedtime and in addition stabilize his mood with Depakote 1000 mg q.12 h. and encouraged him to interact appropriately with staff and other patients and 15 to 20 minutes of supportive therapy provided. Chart was reviewed and discussed with staff. Seen and assessed in his bedside. Awa Thomas M.D. DR: NORA JOB#: [id number] CC:
[2017-04-06 19:12] VITALS: BP 157/101
--- NOTE | 2017-04-06 19:29 | Pulmonology Progress Note ---
Assessment/Plan Problems: (1) Chronic pain (2) COPD (chronic obstructive pulmonary disease) (3) Osteosarcoma of femur (4) Intractable pain (5) Opiate dependence (6) CVA (cerebral vascular accident) Assessment/Plan pain management respiratory treatment f/u by oncology titrate fio2 to sat of 92% d/w dr Abbott dc planning Subjective ROS Limited/Unobtainable: No Allergies: Coded Allergies: KETOROLAC (Verified Allergy, Severe, 08/06/16) ASPIRIN (Verified Allergy, Intermediate, 08/06/16) CEPHALEXIN (Verified Allergy, Mild, 12/13/14) FISH DERIVED (Unverified Allergy, Unknown, 08/29/16) PEANUT (Verified Allergy, Unknown, 11/19/15) Uncoded Allergies: fish (Allergy, Unknown, 08/12/16) Objective Last 24 Hour Vital Signs Date Time Temp Pulse Resp B/P (MAP) Pulse Ox O2 Delivery O2 Flow Rate FiO2 04/06/17 19:12 99.0 89 20 157/101 94 Room Air 04/06/17 18:19 157/96 04/06/17 15:40 98.2 86 20 126/73 97 04/06/17 08:34 87 140/74 04/06/17 08:32 140/74 04/06/17 08:16 87 20 Room Air 21 04/06/17 08:06 98.2 82 20 140/74 95 04/06/17 08:06 Room Air 04/06/17 05:37 98.1 04/06/17 04:00 98.1 85 20 130/85 95 04/05/17 23:13 98.1 106 20 149/92 97 Intake and Output 04/05/17 04/06/17 19:00 07:00 Intake Total 2360 ml 1500 ml Balance 2360 ml 1500 ml Intake Oral 560 ml IV Total 1800 ml 1500 ml # Voids 3 # Bowel Movements 1 Objective General Appearance: WN Lines, tubes and drains: peripheral HEENT: normocephalic, atraumatic Neck: non-tender, normal alignment Respiratory/Chest: chest wall non-tender, lungs clear Cardiovascular/Chest: normal peripheral pulses, normal rate Abdomen: normal bowel sounds, non tender Genitourinary/Rectal: normal genital exam, normal rectal exam Skin Exam: normal pigmentation Laboratory Tests 04/06/17 05:00: White Blood Count 6.2, Red Blood Count 3.98L, Hemoglobin 12.7L, Hematocrit 36.8L , Mean Corpuscular Volume 93, Mean Corpuscular Hemoglobin 31.8H, Mean Corpuscular Hemoglobin Concent 34.4, Red Cell Distribution Width 12.0, Platelet Count 201, Mean Platelet Volume 7.0, Neutrophils (%) (Auto) 61.2, Lymphocytes (% ) (Auto) 26.8, Monocytes (%) (Auto) 9.8, Eosinophils (%) (Auto) 1.7, Basophils ( %) (Auto) 0.6, Sodium Level 137, Potassium Level 3.3L, Chloride Level 105, Carbon Dioxide Level 23, Anion Gap 9, Blood Urea Nitrogen 6L, Creatinine 0.6, Estimat Glomerular Filtration Rate > 60, Glucose Level 195H, Calcium Level 7.4L Current Medications Medications (Trade) Dose Ordered Sig/Robert Route PRN Reason Start Time Stop Time Status Last Admin Dose Admin Acetaminophen (Tylenol) 650 mg Q4H PRN ORAL fever 03/30/17 21:15 04/29/17 21:14 Al Hydroxide/Mg Hydroxide (Mylanta II) 30 ml Q6H PRN ORAL dyspepsia 03/30/17 22:00 04/29/17 21:59 04/06/17 15:02 Albuterol/ Ipratropium (Albuterol/ Ipratropium) 3 ml QIDPRN PRN HHN Shortness of Breath 04/02/17 11:30 04/07/17 11:29 Amitriptyline HCl (Elavil) 25 mg BEDTIME ORAL 03/31/17 21:00 04/30/17 20:59 Future Hold Amlodipine Besylate (Norvasc) 10 mg DAILY ORAL 03/31/17 09:00 04/30/17 08:59 04/06/17 08:34 Baclofen (Lioresal) 10 mg Q8H PRN ORAL muscle spasm 03/31/17 09:00 04/30/17 08:59 04/01/17 15:24 Chlorhexidine Gluconate (Babita-Hex 2%) 1 applic DAILY@2000 TOPIC 03/31/17 20:00 04/30/17 19:59 04/05/17 20:18 Dextrose (Dextrose 50%) STAT PRN IV Hypoglycemia 03/30/17 21:15 04/29/17 21:14 Divalproex Sodium (Depakote ER) 1,000 mg EVERY 12 HOURS ORAL 03/31/17 09:00 04/30/17 08:59 04/06/17 08:31 Docusate Sodium (Colace) 100 mg EVERY 12 HOURS ORAL 03/31/17 09:00 04/30/17 08:59 04/04/17 21:03 Enoxaparin Sodium (Lovenox) 40 mg QHS SUBQ 03/30/17 22:00 04/29/17 21:59 04/05/17 20:22 Fentanyl (Duragesic) 1 patch Q72H TDERMAL 04/02/17 12:00 04/09/17 11:59 04/05/17 14:50 Gabapentin (Neurontin) 300 mg THREE TIMES A DAY ORAL 03/31/17 10:30 04/30/17 10:29 04/06/17 18:19 Hydromorphone HCl (Dilaudid) 2 mg Q3H PRN IVP Severe Pain (Pain Scale 7-10) 04/04/17 15:15 04/10/17 23:59 04/06/17 18:09 Lisinopril (Prinivil) 20 mg BID ORAL 04/02/17 18:00 05/02/17 17:59 04/06/17 18:19 Lorazepam (Ativan 2mg/ml 1ml) 0.5 mg Q4H PRN IV For Anxiety 04/04/17 14:00 04/11/17 23:59 Lorazepam (Ativan) 1 mg Q4H PRN ORAL For Anxiety 04/04/17 13:15 04/11/17 23:59 Magnesium Hydroxide (Mom) 30 ml HSPRN PRN ORAL Constipation 03/30/17 21:15 04/29/17 21:14 Magnesium Oxide (Mag-Ox 400mg) 400 mg DAILY ORAL 04/05/17 15:00 04/14/17 09:01 04/06/17 08:32 Methylnaltrexone Alviso (Relistor) 12 mg QOD SUBQ 03/31/17 10:30 04/30/17 10:29 Miscellaneous Medication (fentaNYL Destruction) 1 ea Q72H MISC 04/02/17 12:00 05/02/17 11:59 04/05/17 12:00 Naloxone HCl (Narcan) 0.1 mg PRN IV Sedation scale 3 or 4 03/31/17 09:00 Nicotine (Nicoderm) 1 patch Q24H TDERMAL 03/31/17 17:00 04/30/17 16:59 04/05/17 17:38 Nitroglycerin (Ntg) 0.4 mg Q5M X 3 DOSES PRN SL Prn Chest Pain 03/30/17 21:15 04/29/17 21:14 Ondansetron HCl (Zofran) 4 mg Q6H PRN IVP Nausea & Vomiting 03/30/17 21:15 04/29/17 21:14 04/02/17 16:06 Oxycodone HCl (Roxicodone) 10 mg Q4H PRN ORAL moderate breakthrough pain 04/06/17 09:00 04/13/17 08:59 Pantoprazole (Protonix) 40 mg DAILY ORAL 03/31/17 09:00 04/30/17 08:59 04/06/17 08:32 Phenytoin (Dilantin) 250 mg DAILY ORAL 03/31/17 09:00 04/30/17 08:59 04/06/17 08:32 Polyethylene Glycol (Miralax) 17 gm HSPRN PRN ORAL Constipation 03/30/17 22:00 04/29/17 21:59 Quetiapine Fumarate (SEROquel) 100 mg QHS ORAL 03/31/17 21:00 04/30/17 20:59 04/05/17 20:20 Sodium Chloride 1,000 ml @ 150 mls/hr Q6H40M IVLG 03/30/17 22:30 04/29/17 22:29 04/06/17 14:03 Trazodone HCl (Desyrel) 100 mg BEDTIME ORAL 03/31/17 21:00 04/30/17 20:59 04/05/17 20:20 Zolpidem Tartrate (Ambien) 5 mg HSPRN PRN ORAL Insomnia 04/04/17 12:45 04/11/17 23:59 LAUREN OCHOA Apr 06, 2017 19:28
[2017-04-06] MEDS: Dyna-Hex 2% Top Sol 2oz TOPIC SCH (21:08)
[2017-04-06] MEDS: TraZODone 100mg tab ORAL SCH (21:09)
[2017-04-06] MEDS: Enoxaparin 40mg Inj SUBQ SCH (21:11)
[2017-04-06] MEDS: LORazepam Inj 2mg/ml 1ml IV PRN (22:07)
[2017-04-06 23:17] VITALS: BP 106/54
--- NOTE | 2017-04-06 23:26 | General Progress Note ---
Assessment/Plan Assessment/Plan #. 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 Anemia due to underlying chronic disease. --> Currently mild. No blood transfusion needed. --> Trend cbc daily. --> Hemoglobin goal >7 #. Anemia due to kidney disease. --> Continue to closely monitor. #. Diabetes mellitus, --> potentially related to poor control as patient is obese. #. Leukocytosis, continue to monitor. --> Resolved at this time. Subjective Date patient seen: Apr 06, 2017 Constitutional: Denies: no symptoms, chills, diaphoresis, fever, malaise, weakness, other HEENT: Denies: no symptoms, eye pain, blurred vision, tearing, double vision, ear pain, ear discharge, nose pain, nose congestion, throat pain, throat swelling, mouth pain, mouth swelling, other Cardiovascular: Denies: no symptoms, chest pain, edema, irregular heart rate, lightheadedness, palpitations, syncope, other Respiratory: Denies: no symptoms, cough, orthopnea, shortness of breath, SOB with excertion, SOB at rest, sputum, stridor, wheezing, other Gastrointestinal/Abdominal: Denies: no symptoms, abdomen distended, abdominal pain, black stools, tarry stools, blood in stool, constipated, diarrhea, difficulty swallowing, nausea, poor appetite, poor fluid intake, rectal bleeding , vomiting, other Genitourinary: Denies: no symptoms, burning, discharge, frequency, flank pain, hematuria, incontinence, pain, urgency, other Hematologic/Lymphatic: Reports: anemia Allergies: Coded Allergies: KETOROLAC (Verified Allergy, Severe, 08/06/16) ASPIRIN (Verified Allergy, Intermediate, 08/06/16) CEPHALEXIN (Verified Allergy, Mild, 12/13/14) FISH DERIVED (Unverified Allergy, Unknown, 08/29/16) PEANUT (Verified Allergy, Unknown, 11/19/15) Uncoded Allergies: fish (Allergy, Unknown, 08/12/16) Subjective Remains confused. Pain has been stable on meds. No acute distress. Objective Last 24 Hour Vital Signs Date Time Temp Pulse Resp B/P (MAP) Pulse Ox O2 Delivery O2 Flow Rate FiO2 04/06/17 23:17 98.1 83 20 106/54 93 Room Air 04/06/17 21:43 99.0 04/06/17 20:20 75 20 Room Air 21 04/06/17 19:12 99.0 89 20 157/101 94 Room Air 04/06/17 19:12 94 Room Air 04/06/17 18:19 157/96 04/06/17 15:40 Room Air 04/06/17 15:40 98.2 86 20 126/73 97 04/06/17 08:34 87 140/74 04/06/17 08:32 140/74 04/06/17 08:16 87 20 Room Air 21 04/06/17 08:06 98.2 82 20 140/74 95 04/06/17 08:06 Room Air 04/06/17 04:00 98.1 85 20 130/85 95 Intake and Output 04/05/17 04/06/17 19:00 07:00 Intake Total 2360 ml 1500 ml Balance 2360 ml 1500 ml Intake Oral 560 ml IV Total 1800 ml 1500 ml # Voids 3 # Bowel Movements 1 Laboratory Tests 04/06/17 05:00: White Blood Count 6.2, Red Blood Count 3.98L, Hemoglobin 12.7L, Hematocrit 36.8L , Mean Corpuscular Volume 93, Mean Corpuscular Hemoglobin 31.8H, Mean Corpuscular Hemoglobin Concent 34.4, Red Cell Distribution Width 12.0, Platelet Count 201, Mean Platelet Volume 7.0, Neutrophils (%) (Auto) 61.2, Lymphocytes (% ) (Auto) 26.8, Monocytes (%) (Auto) 9.8, Eosinophils (%) (Auto) 1.7, Basophils ( %) (Auto) 0.6, Sodium Level 137, Potassium Level 3.3L, Chloride Level 105, Carbon Dioxide Level 23, Anion Gap 9, Blood Urea Nitrogen 6L, Creatinine 0.6, Estimat Glomerular Filtration Rate > 60, Glucose Level 195H, Calcium Level 7.4L Height (Feet): 5 Height (Inches): 9.00 Weight (Pounds): 306 General Appearance: confused Cardiovascular: normal rate, regular rhythm Respiratory/Chest: decreased breath sounds Abdomen: non tender, soft Skin: normal pigmentation, warm/dry Bin Abbott Apr 06, 2017 23:26
[2017-04-07] MEDS: LORazepam Inj 2mg/ml 1ml IV PRN (06:39)
[2017-04-07 06:54] LABS: BASOPHILS % (AUTO) 0.7 % (0.0-2.0); EOSINOPHILS % (AUTO) 2.1 % (0.0-3.0); HEMATOCRIT 36.7 % (42.0-52.0); HEMOGLOBIN 12.3 G/DL (14.2-18.0); LYMPHOCYTES % (AUTO) 35.1 % (20.0-45.0); MEAN CORPUSCULAR VOLUME 92 FL (80-99); MONOCYTES % (AUTO) 8.7 % (1.0-10.0); NEUTROPHILS % (AUTO) 53.5 % (45.0-75.0); PLATELET COUNT 205 K/UL (150-450); RED CELL DISTRIBUTION WIDTH 11.7 % (11.6-14.8); WHITE BLOOD COUNT 5.8 K/UL (4.8-10.8)
[2017-04-07 07:07] LABS: ANION GAP 8 mmol/L (5-15); BLOOD UREA NITROGEN 7 mg/dL (7-18); CALCIUM 8.7 MG/DL (8.5-10.1); CARBON DIOXIDE 26 MMOL/L (21-32); CHLORIDE 103 MMOL/L (98-107); CREATININE 0.6 MG/DL (0.55-1.30); POTASSIUM 3.8 MMOL/L (3.5-5.1); SODIUM 137 MMOL/L (136-145)
[2017-04-07 08:00] VITALS: BP 124/71
--- NOTE | 2017-04-07 10:31 | Cardiac Electrophysiology PN ---
Assessment/Plan Assessment/Plan 1. Sinus tach due to pain of osteosarcoma.Echo EF 55%. Better 2. HTN On [id number] and Lisinopril 20 bid 3. Osteosarcoma S/P RT and chemo. S/P MRI of Right leg yesterday. Going for MRI Left leg today 4. Obesity. DW RN Subjective Subjective Still has Right leg pain. No chest pain or SOB. Had MRI Right leg yesterday Going for MRI of left leg today. Objective Last 24 Hour Vital Signs Date Time Temp Pulse Resp B/P (MAP) Pulse Ox O2 Delivery O2 Flow Rate FiO2 04/07/17 08:15 77 20 Room Air 21 04/07/17 08:00 97.7 76 20 124/71 94 04/07/17 06:31 98.1 04/07/17 00:00 93 Room Air 04/06/17 23:17 98.1 83 20 106/54 93 Room Air 04/06/17 20:20 75 20 Room Air 21 04/06/17 19:12 99.0 89 20 157/101 94 Room Air 04/06/17 19:12 94 Room Air 04/06/17 18:19 157/96 04/06/17 15:40 Room Air 04/06/17 15:40 98.2 86 20 126/73 97 Intake and Output 04/06/17 04/07/17 19:00 07:00 Intake Total 2850 ml 1700 ml Balance 2850 ml 1700 ml Intake Oral 1200 ml IV Total 1650 ml 1700 ml # Voids 3 3 # Bowel Movements 1 Laboratory Tests Test 04/07/17 05:15 White Blood Count 5.8 K/UL (4.8-10.8) Red Blood Count 4.00 M/UL (4.70-6.10) L Hemoglobin 12.3 G/DL (14.2-18.0) L Hematocrit 36.7 % (42.0-52.0) L Mean Corpuscular Volume 92 FL (80-99) Mean Corpuscular Hemoglobin 30.8 PG (27.0-31.0) Mean Corpuscular Hemoglobin Concent 33.6 G/DL (32.0-36.0) Red Cell Distribution Width 11.7 % (11.6-14.8) Platelet Count 205 K/UL (150-450) Mean Platelet Volume 7.5 FL (6.5-10.1) Neutrophils (%) (Auto) 53.5 % (45.0-75.0) Lymphocytes (%) (Auto) 35.1 % (20.0-45.0) Monocytes (%) (Auto) 8.7 % (1.0-10.0) Eosinophils (%) (Auto) 2.1 % (0.0-3.0) Basophils (%) (Auto) 0.7 % (0.0-2.0) Sodium Level 137 MMOL/L (136-145) Potassium Level 3.8 MMOL/L (3.5-5.1) Chloride Level 103 MMOL/L (98-107) Carbon Dioxide Level 26 MMOL/L (21-32) Anion Gap 8 mmol/L (5-15) Blood Urea Nitrogen 7 mg/dL (7-18) Creatinine 0.6 MG/DL (0.55-1.30) Estimat Glomerular Filtration Rate > 60 mL/min (>60) Glucose Level 206 MG/DL (74-106) H Calcium Level 8.7 MG/DL (8.5-10.1) Objective Neck: no JVD Cardiovascular: normal rate, regular rhythm, tachycardia Respiratory/Chest: normal breath sounds, no respiratory distress Abdomen: soft Extremities: non-pitting 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
[2017-04-07] MEDS: Docusate 100mg cap ORAL SCH ×2 (10:44→10:57)
[2017-04-07] MEDS: Depakote ER 500mg tab ORAL SCH ×2 (10:45→22:58)
--- NOTE | 2017-04-07 10:45 | Progress Note ---
DATE: 04/07/2017 SUBJECTIVE: This is a 41-year-old male patient. He is admitted to [facility] secondary to osteosarcoma and intractable pain. The patient continues to have some confusion and disorganized thought process. MENTAL STATUS EXAMINATION: This is a 41-year-old male with psychomotor agitation. Mood is irritable and agitated. Affect is guarded and restricted. Thought process disorganized and illogical. Racing thoughts. Pressured speech. No signs of any suicidal or homicidal thoughts. Insight and judgment is poor. DIAGNOSIS: Bipolar 2. PLAN: Treat him with Depakote 1000 mg twice a day to stabilize his mood, Elavil 25 mg at bedtime for depression, anxiety, and insomnia, and Seroquel 100 mg at bedtime. Provide him with supportive therapy. Encourage him to interact appropriately with staff. Chart reviewed and discussed with the staff. A 15 to 20 minutes supportive therapy provided for this patient. Seen and assessed at bedside. Awa Thomas M.D. DR: NORA JOB#: [id number] CC:
[2017-04-07] MEDS: Magnesium Oxide 400mg tab ORAL SCH (10:46)
[2017-04-07] MEDS: Lisinopril 20mg tab ORAL SCH ×2 (10:46→18:22)
[2017-04-07] MEDS: Phenytoin Susp 100mg/4ml ORAL SCH (10:46)
--- NOTE | 2017-04-07 11:39 | Infectious Diseases Prog Note ---
Assessment/Plan Assessment/Plan A; ?, Chronic diarrhea, one bowel movement R hip osteosarcoma Chronic pain Hepatitis C P; observe off antibiotics Subjective ROS Limited/Unobtainable: No Constitutional: Reports: no symptoms Respiratory: Reports: no symptoms Cardiovascular: Reports: no symptoms Gastrointestinal/Abdominal: Reports: diarrhea Neurologic: Reports: no symptoms Psychiatric: Reports: depression Allergies: Coded Allergies: KETOROLAC (Verified Allergy, Severe, 08/06/16) ASPIRIN (Verified Allergy, Intermediate, 08/06/16) CEPHALEXIN (Verified Allergy, Mild, 12/13/14) FISH DERIVED (Unverified Allergy, Unknown, 08/29/16) PEANUT (Verified Allergy, Unknown, 11/19/15) Uncoded Allergies: fish (Allergy, Unknown, 08/12/16) Objective Vital Signs Last 24 Hour Vital Signs Date Time Temp Pulse Resp B/P (MAP) Pulse Ox O2 Delivery O2 Flow Rate FiO2 04/07/17 10:47 77 124/71 04/07/17 10:46 124/71 04/07/17 08:15 77 20 Room Air 21 04/07/17 08:00 97.7 76 20 124/71 94 04/07/17 06:31 98.1 04/07/17 00:00 93 Room Air 04/06/17 23:17 98.1 83 20 106/54 93 Room Air 04/06/17 20:20 75 20 Room Air 21 04/06/17 19:12 99.0 89 20 157/101 94 Room Air 04/06/17 19:12 94 Room Air 04/06/17 18:19 157/96 04/06/17 15:40 Room Air 04/06/17 15:40 98.2 86 20 126/73 97 Height (Feet): 5 Height (Inches): 9.00 Weight (Pounds): 306 General Appearance: no acute distress HEENT: mucous membranes moist Respiratory/Chest: lungs clear Cardiovascular: normal rate, other - left arm PICC line Abdomen: soft, non tender Extremities: no edema 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: alert, oriented x 3, responsive Laboratory Tests Test 04/07/17 05:15 White Blood Count 5.8 K/UL (4.8-10.8) Red Blood Count 4.00 M/UL (4.70-6.10) L Hemoglobin 12.3 G/DL (14.2-18.0) L Hematocrit 36.7 % (42.0-52.0) L Mean Corpuscular Volume 92 FL (80-99) Mean Corpuscular Hemoglobin 30.8 PG (27.0-31.0) Mean Corpuscular Hemoglobin Concent 33.6 G/DL (32.0-36.0) Red Cell Distribution Width 11.7 % (11.6-14.8) Platelet Count 205 K/UL (150-450) Mean Platelet Volume 7.5 FL (6.5-10.1) Neutrophils (%) (Auto) 53.5 % (45.0-75.0) Lymphocytes (%) (Auto) 35.1 % (20.0-45.0) Monocytes (%) (Auto) 8.7 % (1.0-10.0) Eosinophils (%) (Auto) 2.1 % (0.0-3.0) Basophils (%) (Auto) 0.7 % (0.0-2.0) Sodium Level 137 MMOL/L (136-145) Potassium Level 3.8 MMOL/L (3.5-5.1) Chloride Level 103 MMOL/L (98-107) Carbon Dioxide Level 26 MMOL/L (21-32) Anion Gap 8 mmol/L (5-15) Blood Urea Nitrogen 7 mg/dL (7-18) Creatinine 0.6 MG/DL (0.55-1.30) Estimat Glomerular Filtration Rate > 60 mL/min (>60) Glucose Level 206 MG/DL (74-106) H Calcium Level 8.7 MG/DL (8.5-10.1) Current Medications Medications (Trade) Dose Ordered Sig/Robert Route PRN Reason Start Time Stop Time Status Last Admin Dose Admin Acetaminophen (Tylenol) 650 mg Q4H PRN ORAL fever 03/30/17 21:15 04/29/17 21:14 Al Hydroxide/Mg Hydroxide (Mylanta II) 30 ml Q6H PRN ORAL dyspepsia 03/30/17 22:00 04/29/17 21:59 04/06/17 15:02 Amitriptyline HCl (Elavil) 25 mg BEDTIME ORAL 03/31/17 21:00 04/30/17 20:59 Future Hold Amlodipine Besylate (Norvasc) 10 mg DAILY ORAL 03/31/17 09:00 04/30/17 08:59 04/07/17 10:47 Baclofen (Lioresal) 10 mg Q8H PRN ORAL muscle spasm 03/31/17 09:00 04/30/17 08:59 04/01/17 15:24 Chlorhexidine Gluconate (Babita-Hex 2%) 1 applic DAILY@2000 TOPIC 03/31/17 20:00 04/30/17 19:59 04/06/17 21:08 Dextrose (Dextrose 50%) STAT PRN IV Hypoglycemia 03/30/17 21:15 04/29/17 21:14 Divalproex Sodium (Depakote ER) 1,000 mg EVERY 12 HOURS ORAL 03/31/17 09:00 04/30/17 08:59 04/07/17 10:45 Docusate Sodium (Colace) 100 mg EVERY 12 HOURS ORAL 03/31/17 09:00 04/30/17 08:59 04/07/17 10:44 Enoxaparin Sodium (Lovenox) 40 mg QHS SUBQ 03/30/17 22:00 04/29/17 21:59 04/06/17 21:11 Fentanyl (Duragesic) 1 patch Q72H TDERMAL 04/02/17 12:00 04/09/17 11:59 04/05/17 14:50 Gabapentin (Neurontin) 300 mg THREE TIMES A DAY ORAL 03/31/17 10:30 04/30/17 10:29 04/07/17 10:45 Hydromorphone HCl (Dilaudid) 2 mg Q3H PRN IVP Severe Pain (Pain Scale 7-10) 04/04/17 15:15 04/10/17 23:59 04/07/17 10:48 Lisinopril (Prinivil) 20 mg BID ORAL 04/02/17 18:00 05/02/17 17:59 04/07/17 10:46 Lorazepam (Ativan 2mg/ml 1ml) 0.5 mg Q4H PRN IV For Anxiety 04/04/17 14:00 04/11/17 23:59 04/07/17 06:39 Lorazepam (Ativan) 1 mg Q4H PRN ORAL For Anxiety 04/04/17 13:15 04/11/17 23:59 Magnesium Hydroxide (Mom) 30 ml HSPRN PRN ORAL Constipation 03/30/17 21:15 04/29/17 21:14 Magnesium Oxide (Mag-Ox 400mg) 400 mg DAILY ORAL 04/05/17 15:00 04/14/17 09:01 04/07/17 10:46 Methylnaltrexone [place] (Relistor) 12 mg QOD SUBQ 03/31/17 10:30 04/30/17 10:29 Miscellaneous Medication (fentaNYL Destruction) 1 ea Q72H MISC 04/02/17 12:00 05/02/17 11:59 04/05/17 12:00 Naloxone HCl (Narcan) 0.1 mg PRN IV Sedation scale 3 or 4 03/31/17 09:00 Nicotine (Nicoderm) 1 patch Q24H TDERMAL 03/31/17 17:00 04/30/17 16:59 04/05/17 17:38 Nitroglycerin (Ntg) 0.4 mg Q5M X 3 DOSES PRN SL Prn Chest Pain 03/30/17 21:15 04/29/17 21:14 Ondansetron HCl (Zofran) 4 mg Q6H PRN IVP Nausea & Vomiting 03/30/17 21:15 04/29/17 21:14 04/02/17 16:06 Oxycodone HCl (Roxicodone) 10 mg Q4H PRN ORAL moderate breakthrough pain 04/06/17 09:00 04/13/17 08:59 Pantoprazole (Protonix) 40 mg DAILY ORAL 03/31/17 09:00 04/30/17 08:59 04/07/17 10:46 Phenytoin (Dilantin) 250 mg DAILY ORAL 03/31/17 09:00 04/30/17 08:59 04/07/17 10:46 Polyethylene Glycol (Miralax) 17 gm HSPRN PRN ORAL Constipation 03/30/17 22:00 04/29/17 21:59 Quetiapine Fumarate (SEROquel) 100 mg QHS ORAL 03/31/17 21:00 04/30/17 20:59 04/06/17 21:10 Sodium Chloride 1,000 ml @ 150 mls/hr Q6H40M IVLG 03/30/17 22:30 04/29/17 22:29 04/07/17 04:12 Trazodone HCl (Desyrel) 100 mg BEDTIME ORAL 03/31/17 21:00 04/30/17 20:59 04/06/17 21:09 Zolpidem Tartrate (Ambien) 5 mg HSPRN PRN ORAL Insomnia 04/04/17 12:45 04/11/17 23:59 DAREK SANCHEZ Apr 07, 2017 11:39
[2017-04-07 12:00] VITALS: BP 138/90
--- NOTE | 2017-04-07 12:35 | General Progress Note ---
Assessment/Plan Problem List: (1) Chronic pain ICD Codes: G89.29 - Other chronic pain SNOMED: 86212857 (2) COPD (chronic obstructive pulmonary disease) ICD Codes: J44.9 - Chronic obstructive pulmonary disease, unspecified SNOMED: 88897876 (3) Psychiatric disorder ICD Codes: F99 - Mental disorder, not otherwise specified SNOMED: 54366102, 721267677 (4) PTSD (post-traumatic stress disorder) ICD Codes: F43.10 - Post-traumatic stress disorder, unspecified SNOMED: 63002387 (5) CVA (cerebral vascular accident) ICD Codes: I63.9 - Cerebral infarction, unspecified SNOMED: 322914455 (6) Intractable pain ICD Codes: R52 - Pain, unspecified SNOMED: 81896401 (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 - Malignant neoplasm of long bones of unspecified lower limb SNOMED: 107421531, 757134478 Qualifiers: Qualified Codes: C40.21 - Malignant neoplasm of long bones of right lower limb Status: stable, progressing, tolerating diet Assessment/Plan ot pt diet pain control dc to snf Subjective Constitutional: Reports: weakness Allergies: Coded Allergies: KETOROLAC (Verified Allergy, Severe, 08/06/16) ASPIRIN (Verified Allergy, Intermediate, 08/06/16) CEPHALEXIN (Verified Allergy, Mild, 12/13/14) FISH DERIVED (Unverified Allergy, Unknown, 08/29/16) PEANUT (Verified Allergy, Unknown, 11/19/15) Uncoded Allergies: fish (Allergy, Unknown, 08/12/16) All Systems: reviewed and negative except above Subjective sleepy calm sl gen pain Objective Last 24 Hour Vital Signs Date Time Temp Pulse Resp B/P (MAP) Pulse Ox O2 Delivery O2 Flow Rate FiO2 04/07/17 12:00 98.2 84 20 138/90 96 04/07/17 11:18 97.7 04/07/17 10:47 77 124/71 04/07/17 10:46 124/71 04/07/17 08:15 77 20 Room Air 21 04/07/17 08:00 97.7 76 20 124/71 94 04/07/17 00:00 93 Room Air 04/06/17 23:17 98.1 83 20 106/54 93 Room Air 04/06/17 20:20 75 20 Room Air 21 04/06/17 19:12 99.0 89 20 157/101 94 Room Air 04/06/17 19:12 94 Room Air 04/06/17 18:19 157/96 04/06/17 15:40 Room Air 04/06/17 15:40 98.2 86 20 126/73 97 Intake and Output 04/06/17 04/07/17 19:00 07:00 Intake Total 2850 ml 1700 ml Balance 2850 ml 1700 ml Intake Oral 1200 ml IV Total 1650 ml 1700 ml # Voids 3 3 # Bowel Movements 1 Laboratory Tests 04/07/17 05:15: White Blood Count 5.8, Red Blood Count 4.00L, Hemoglobin 12.3L, Hematocrit 36.7L , Mean Corpuscular Volume 92, Mean Corpuscular Hemoglobin 30.8, Mean Corpuscular Hemoglobin Concent 33.6, Red Cell Distribution Width 11.7, Platelet Count 205, Mean Platelet Volume 7.5, Neutrophils (%) (Auto) 53.5, Lymphocytes (% ) (Auto) 35.1, Monocytes (%) (Auto) 8.7, Eosinophils (%) (Auto) 2.1, Basophils ( %) (Auto) 0.7, Sodium Level 137, Potassium Level 3.8, Chloride Level 103, Carbon Dioxide Level 26, Anion Gap 8, Blood Urea Nitrogen 7, Creatinine 0.6, Estimat Glomerular Filtration Rate > 60, Glucose Level 206H, Calcium Level 8.7 Height (Feet): 5 Height (Inches): 9.00 Weight (Pounds): 306 General Appearance: alert EENT: normal ENT inspection Neck: normal alignment Cardiovascular: normal peripheral pulses, normal rate, regular rhythm Respiratory/Chest: chest wall non-tender, lungs clear, normal breath sounds Abdomen: normal bowel sounds, non tender, soft Extremities: normal inspection Edema: no edema noted Arm (L), no edema noted Arm (R), no edema noted Leg (L), no edema noted Leg (R), no edema noted Pedal (L), no edema noted Pedal (R), no edema noted Generalized Neurologic: responsive, motor weakness Skin: normal pigmentation, warm/dry MARQUEZ FOY Apr 07, 2017 12:35
--- NOTE | 2017-04-07 12:36 | Discharge Instructions ---
Discharge Instructions For Congestive Heart Failure Reminder Report to your physician any weight gain of 5 pounds or more in one week. MARQUEZ FOY Apr 07, 2017 12:36
[2017-04-07 16:00] VITALS: BP 139/77
--- NOTE | 2017-04-07 16:55 | General Progress Note ---
Assessment/Plan Assessment/Plan (1) Endochondroma of femur as per oncologist seen on MRI, no signs of Osteosarcoma per radiologist (2) Morbid obesity (3) Right leg pain Pt will be discontinued off the Fentanyl patch, continued on Oxycodone and Dilaudid will be changed to 2mg IVPB Q4H. Pt was d/w Dr. Muhammad and he concurred. Subjective Date patient seen: Apr 07, 2017 Time patient seen: 04:00 - pm Allergies: Coded Allergies: KETOROLAC (Verified Allergy, Severe, 08/06/16) ASPIRIN (Verified Allergy, Intermediate, 08/06/16) CEPHALEXIN (Verified Allergy, Mild, 12/13/14) FISH DERIVED (Unverified Allergy, Unknown, 08/29/16) PEANUT (Verified Allergy, Unknown, 11/19/15) Uncoded Allergies: fish (Allergy, Unknown, 08/12/16) Subjective REVIEW OF SYSTEMS: Denies rash, fever, chills, sweating, dizziness, drowsiness , blurred vision, sore throat, change in weight. No chest pain. He is complaining of low back and lower extremity pain. SUBJECTIVE: Patient is s/p MRI of Femur and was found not to have Osteosarcoma. This was d/w the Oncologist. I d/w pt about reduction of opioids at this time and he understands. Objective Last 24 Hour Vital Signs Date Time Temp Pulse Resp B/P (MAP) Pulse Ox O2 Delivery O2 Flow Rate FiO2 04/07/17 16:00 98.4 94 20 139/77 04/07/17 14:33 98.2 04/07/17 12:00 98.2 84 20 138/90 96 04/07/17 10:47 77 124/71 04/07/17 10:46 124/71 04/07/17 08:15 77 20 Room Air 21 04/07/17 08:00 97.7 76 20 124/71 94 04/07/17 00:00 93 Room Air 04/06/17 23:17 98.1 83 20 106/54 93 Room Air 04/06/17 20:20 75 20 Room Air 21 04/06/17 19:12 99.0 89 20 157/101 94 Room Air 04/06/17 19:12 94 Room Air 04/06/17 18:19 157/96 Intake and Output 04/06/17 04/07/17 19:00 07:00 Intake Total 2850 ml 1700 ml Balance 2850 ml 1700 ml Intake Oral 1200 ml IV Total 1650 ml 1700 ml # Voids 3 3 # Bowel Movements 1 Laboratory Tests 04/07/17 05:15: White Blood Count 5.8, Red Blood Count 4.00L, Hemoglobin 12.3L, Hematocrit 36.7L , Mean Corpuscular Volume 92, Mean Corpuscular Hemoglobin 30.8, Mean Corpuscular Hemoglobin Concent 33.6, Red Cell Distribution Width 11.7, Platelet Count 205, Mean Platelet Volume 7.5, Neutrophils (%) (Auto) 53.5, Lymphocytes (% ) (Auto) 35.1, Monocytes (%) (Auto) 8.7, Eosinophils (%) (Auto) 2.1, Basophils ( %) (Auto) 0.7, Sodium Level 137, Potassium Level 3.8, Chloride Level 103, Carbon Dioxide Level 26, Anion Gap 8, Blood Urea Nitrogen 7, Creatinine 0.6, Estimat Glomerular Filtration Rate > 60, Glucose Level 206H, Calcium Level 8.7 Height (Feet): 5 Height (Inches): 9.00 Weight (Pounds): 308 Objective GENERAL: Alert and oriented x3. HEENT: PERRLA. NECK: Range of motion is full in all direction. No tenderness to paracervical muscles. No adenopathy. LUNGS: Decreased breath sounds bilaterally. HEART: Regular. ABDOMEN: Obese, tenderness to palpation BACK: Range of motion is decreased on flexion and extension with tenderness to paraspinal muscles. No tenderness to trapezius muscles. EXTREMITIES: No cyanosis, no clubbing, no edema. NEUROLOGICAL EXAM: Lower extremities range of motion is decreased due to patient's medical condition with motor being 4/5 in all muscles bilaterally. Procedure: MRI Femur wo/w Contrast, Impression: Lesion of the distal femur appearance consistent with an enchondroma. LIA HAGEN Apr 07, 2017 16:54
[2017-04-07] MEDS ORDERED: HYDROmorphone 2 MG in NS 55ml IVPB PRN (17:00)
--- NOTE | 2017-04-07 17:08 | Pulmonology Progress Note ---
Assessment/Plan Problems: (1) Chronic pain (2) COPD (chronic obstructive pulmonary disease) (3) Osteosarcoma of femur (4) Intractable pain (5) Opiate dependence (6) CVA (cerebral vascular accident) Assessment/Plan pain management respiratory treatment f/u by oncology titrate fio2 to sat of 92% d/w dr Abbott dc planning consider psych management Subjective ROS Limited/Unobtainable: No Constitutional: Reports: no symptoms HEENT: Repors: no symptoms Respiratory: Reports: no symptoms Allergies: Coded Allergies: KETOROLAC (Verified Allergy, Severe, 08/06/16) ASPIRIN (Verified Allergy, Intermediate, 08/06/16) CEPHALEXIN (Verified Allergy, Mild, 12/13/14) FISH DERIVED (Unverified Allergy, Unknown, 08/29/16) PEANUT (Verified Allergy, Unknown, 11/19/15) Uncoded Allergies: fish (Allergy, Unknown, 08/12/16) Objective Last 24 Hour Vital Signs Date Time Temp Pulse Resp B/P (MAP) Pulse Ox O2 Delivery O2 Flow Rate FiO2 04/07/17 16:00 98.4 94 20 139/77 04/07/17 14:33 98.2 04/07/17 12:00 98.2 84 20 138/90 96 04/07/17 10:47 77 124/71 04/07/17 10:46 124/71 04/07/17 08:15 77 20 Room Air 21 04/07/17 08:00 97.7 76 20 124/71 94 04/07/17 00:00 93 Room Air 04/06/17 23:17 98.1 83 20 106/54 93 Room Air 04/06/17 20:20 75 20 Room Air 21 04/06/17 19:12 99.0 89 20 157/101 94 Room Air 04/06/17 19:12 94 Room Air 04/06/17 18:19 157/96 Intake and Output 04/06/17 04/07/17 19:00 07:00 Intake Total 2850 ml 1700 ml Balance 2850 ml 1700 ml Intake Oral 1200 ml IV Total 1650 ml 1700 ml # Voids 3 3 # Bowel Movements 1 Objective General Appearance: WN Lines, tubes and drains: peripheral HEENT: normocephalic, atraumatic Neck: non-tender, normal alignment Respiratory/Chest: chest wall non-tender, lungs clear Cardiovascular/Chest: normal peripheral pulses, normal rate Abdomen: normal bowel sounds, non tender Genitourinary/Rectal: normal genital exam, normal rectal exam Skin Exam: normal pigmentation Laboratory Tests 04/07/17 05:15: White Blood Count 5.8, Red Blood Count 4.00L, Hemoglobin 12.3L, Hematocrit 36.7L , Mean Corpuscular Volume 92, Mean Corpuscular Hemoglobin 30.8, Mean Corpuscular Hemoglobin Concent 33.6, Red Cell Distribution Width 11.7, Platelet Count 205, Mean Platelet Volume 7.5, Neutrophils (%) (Auto) 53.5, Lymphocytes (% ) (Auto) 35.1, Monocytes (%) (Auto) 8.7, Eosinophils (%) (Auto) 2.1, Basophils ( %) (Auto) 0.7, Sodium Level 137, Potassium Level 3.8, Chloride Level 103, Carbon Dioxide Level 26, Anion Gap 8, Blood Urea Nitrogen 7, Creatinine 0.6, Estimat Glomerular Filtration Rate > 60, Glucose Level 206H, Calcium Level 8.7 Current Medications Medications (Trade) Dose Ordered Sig/Robert Route PRN Reason Start Time Stop Time Status Last Admin Dose Admin Acetaminophen (Tylenol) 650 mg Q4H PRN ORAL fever 03/30/17 21:15 04/29/17 21:14 Al Hydroxide/Mg Hydroxide (Mylanta II) 30 ml Q6H PRN ORAL dyspepsia 03/30/17 22:00 04/29/17 21:59 04/06/17 15:02 Amitriptyline HCl (Elavil) 25 mg BEDTIME ORAL 03/31/17 21:00 04/30/17 20:59 Future Hold Amlodipine Besylate (Norvasc) 10 mg DAILY ORAL 03/31/17 09:00 04/30/17 08:59 04/07/17 10:47 Baclofen (Lioresal) 10 mg Q8H PRN ORAL muscle spasm 03/31/17 09:00 04/30/17 08:59 04/01/17 15:24 Chlorhexidine Gluconate (Babita-Hex 2%) 1 applic DAILY@1999 TOPIC 03/31/17 20:00 04/30/17 19:59 04/06/17 21:08 Dextrose (Dextrose 50%) STAT PRN IV Hypoglycemia 03/30/17 21:15 04/29/17 21:14 Divalproex Sodium (Depakote ER) 1,000 mg EVERY 12 HOURS ORAL 03/31/17 09:00 04/30/17 08:59 04/07/17 10:45 Docusate Sodium (Colace) 100 mg EVERY 12 HOURS ORAL 03/31/17 09:00 04/30/17 08:59 04/07/17 10:44 Enoxaparin Sodium (Lovenox) 40 mg QHS SUBQ 03/30/17 22:00 04/29/17 21:59 04/06/17 21:11 Fentanyl (Duragesic) 1 patch Q72H TDERMAL 04/02/17 12:00 04/09/17 11:59 04/05/17 14:50 Gabapentin (Neurontin) 300 mg THREE TIMES A DAY ORAL 03/31/17 10:30 04/30/17 10:29 04/07/17 12:36 Hydromorphone HCl 2 mg/Sodium Chloride 56 ml @ 224 mls/hr Q4H PRN IVPB Severe Pain (Pain Scale 7-10) 04/07/17 17:00 04/14/17 16:59 Lisinopril (Prinivil) 20 mg BID ORAL 04/02/17 18:00 05/02/17 17:59 04/07/17 10:46 Lorazepam (Ativan 2mg/ml 1ml) 0.5 mg Q4H PRN IV For Anxiety 04/04/17 14:00 04/11/17 23:59 04/07/17 06:39 Lorazepam (Ativan) 1 mg Q4H PRN ORAL For Anxiety 04/04/17 13:15 04/11/17 23:59 Magnesium Hydroxide (Mom) 30 ml HSPRN PRN ORAL Constipation 03/30/17 21:15 04/29/17 21:14 Magnesium Oxide (Mag-Ox 400mg) 400 mg DAILY ORAL 04/05/17 15:00 04/14/17 09:01 04/07/17 10:46 Methylnaltrexone [place] (Relistor) 12 mg QOD SUBQ 03/31/17 10:30 04/30/17 10:29 Miscellaneous Medication (fentaNYL Destruction) 1 ea Q72H MISC 04/02/17 12:00 05/02/17 11:59 04/05/17 12:00 Naloxone HCl (Narcan) 0.1 mg PRN IV Sedation scale 3 or 4 03/31/17 09:00 Nicotine (Nicoderm) 1 patch Q24H TDERMAL 03/31/17 17:00 04/30/17 16:59 04/05/17 17:38 Nitroglycerin (Ntg) 0.4 mg Q5M X 3 DOSES PRN SL Prn Chest Pain 03/30/17 21:15 04/29/17 21:14 Ondansetron HCl (Zofran) 4 mg Q6H PRN IVP Nausea & Vomiting 03/30/17 21:15 04/29/17 21:14 04/02/17 16:06 Oxycodone HCl (Roxicodone) 10 mg Q4H PRN ORAL moderate breakthrough pain 04/06/17 09:00 04/13/17 08:59 Pantoprazole (Protonix) 40 mg DAILY ORAL 03/31/17 09:00 04/30/17 08:59 04/07/17 10:46 Phenytoin (Dilantin) 250 mg DAILY ORAL 03/31/17 09:00 04/30/17 08:59 04/07/17 10:46 Polyethylene Glycol (Miralax) 17 gm HSPRN PRN ORAL Constipation 03/30/17 22:00 04/29/17 21:59 Quetiapine Fumarate (SEROquel) 100 mg QHS ORAL 03/31/17 21:00 04/30/17 20:59 04/06/17 21:10 Sodium Chloride 1,000 ml @ 150 mls/hr Q6H40M IVLG 03/30/17 22:30 04/29/17 22:29 04/07/17 12:33 Trazodone HCl (Desyrel) 100 mg BEDTIME ORAL 03/31/17 21:00 04/30/17 20:59 04/06/17 21:09 Zolpidem Tartrate (Ambien) 5 mg HSPRN PRN ORAL Insomnia 04/04/17 12:45 04/11/17 23:59 LAUREN OCHOA Apr 07, 2017 17:08
[2017-04-07 20:00] VITALS: BP 150/95
[2017-04-07] MEDS: Dyna-Hex 2% Top Sol 2oz TOPIC SCH (20:00)
[2017-04-07] MEDS: TraZODone 100mg tab ORAL SCH (22:58)
[2017-04-07] MEDS: Enoxaparin 40mg Inj SUBQ SCH (23:01)
--- NOTE | 2017-04-08 23:19 | General Progress Note ---
Assessment/Plan Assessment/Plan #. 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 Anemia due to underlying chronic disease. --> Currently mild. No blood transfusion needed. --> Trend cbc daily. --> Hemoglobin goal >7 #. Anemia due to kidney disease. --> Continue to closely monitor. #. Diabetes mellitus, --> potentially related to poor control as patient is obese. #. Leukocytosis, continue to monitor. --> Resolved at this time. Subjective Date patient seen: Apr 08, 2017 Constitutional: Denies: no symptoms, chills, diaphoresis, fever, malaise, weakness, other HEENT: Denies: no symptoms, eye pain, blurred vision, tearing, double vision, ear pain, ear discharge, nose pain, nose congestion, throat pain, throat swelling, mouth pain, mouth swelling, other Cardiovascular: Denies: no symptoms, chest pain, edema, irregular heart rate, lightheadedness, palpitations, syncope, other Respiratory: Denies: no symptoms, cough, orthopnea, shortness of breath, SOB with excertion, SOB at rest, sputum, stridor, wheezing, other Gastrointestinal/Abdominal: Denies: no symptoms, abdomen distended, abdominal pain, black stools, tarry stools, blood in stool, constipated, diarrhea, difficulty swallowing, nausea, poor appetite, poor fluid intake, rectal bleeding , vomiting, other Genitourinary: Denies: no symptoms, burning, discharge, frequency, flank pain, hematuria, incontinence, pain, urgency, other Hematologic/Lymphatic: Reports: anemia Allergies: Coded Allergies: KETOROLAC (Verified Allergy, Severe, 08/06/16) ASPIRIN (Verified Allergy, Intermediate, 08/06/16) CEPHALEXIN (Verified Allergy, Mild, 12/13/14) FISH DERIVED (Unverified Allergy, Unknown, 08/29/16) PEANUT (Verified Allergy, Unknown, 11/19/15) Uncoded Allergies: fish (Allergy, Unknown, 08/12/16) Subjective Pt was found to have endochondroma. On pain control. No new events. Objective Intake and Output 04/07/17 04/08/17 19:00 07:00 Intake Total 1890 ml Balance 1890 ml Intake Oral 240 ml IV Total 1650 ml # Voids 3 Height (Feet): 5 Height (Inches): 9.00 Weight (Pounds): 308 Bin Abbott Apr 08, 2017 23:19
--- NOTE | 2017-04-10 02:30 | Discharge Summary 2 SIG ---
DATE OF ADMISSION: 03/30/2017 DATE OF DISCHARGE: 04/07/2017 CONSULTANTS: 1. Ignacio Muhammad M.D. 2. Chevy Rosenthal M.D. 3. Ministerio Joe M.D. 4. Awa Thomas M.D. 5. Bin Abbott M.D. BRIEF HOSPITAL COURSE: The patient is a 41-year-old male, who lives at home with history of osteosarcoma of the right leg and chronic pain came in complaining of intractable leg pain. He has medical history significant for chronic pain syndrome, depression, hypertension, and chronic obstructive pulmonary disease. On evaluation at ED, chest x-ray showed no infiltrates . Laboratories with elevated WBC 11.5. Normal hemoglobin and hematocrit. EKG was without any injury. The patient in need of aggressive analgesia. He was then admitted for further evaluation. He was seen by pain management. He was placed on fentanyl, oxycodone, and Dilaudid. He was continued on his antihypertensives amlodipine 10 mg daily. He had tachycardia secondary to pain. Echocardiogram done showed ejection fraction 55% to 60%. He was recently admitted to [facility] where he signed out against medical advice. His pain medications were adjusted as he complained of not having good pain control. Fentanyl was increased to 50 mcg every 72 hours. He was seen by Hematology/Oncology. The patient is status post chemotherapy and radiation in the past. He had a femur MRI that showed lesion on the distal femur consistent with enchondroma or low grade chondrosarcoma. He was taken off fentanyl patch. Full treatment was not carried out as the patient signed out against medical advice. FINAL DIAGNOSES: 1. Chronic pain syndrome. 2. Osteosarcoma of the femur. 3. Posttraumatic stress disorder. 4. Endochondroma. 5. Anemia due to chronic disease. 6. Anemia due to kidney disease. 7. Diabetes mellitus with poor control. 8. Chronic obstructive pulmonary disease. 9. Opiate dependence. 10. Old cerebrovascular accident. 11. Bipolar 2 disorder. 12. Sinus tachycardia due to pain. 13. Hypertension. 14. Morbid obesity. 15. Nicotine dependence. DISPOSITION: The patient left AMA. Jeremiah Singh D.O. I have been assigned to dictate discharge summary on this account and I was not involved in the patient's management. Courtney Lunsford N.P. DR: KATHLEEN JOB#: [id number] CC:
== END 2017-04-07 23:10 | disposition left against medical advice (07) | DRG 543 ==
LOC: EMR 13:15 → EDBEDREQ 13:27 → 4W 13:40 → EDBEDREQ 14:37 → 4W 04-01 13:52
DX: C40.21 Malignant neoplasm of long bones of right lower limb (principal); Z68.42 Body mass index [BMI] 45.0-49.9, adult; E11.22 Type 2 diabetes mellitus with diabetic chronic kidney disease; F31.81 Bipolar II disorder; F11.29 Opioid dependence with unspecified opioid-induced disorder; E66.01 Morbid (severe) obesity due to excess calories; G89.3 Neoplasm related pain (acute) (chronic); G89.4 Chronic pain syndrome; R19.7 Diarrhea, unspecified; F43.10 Post-traumatic stress disorder, unspecified; G40.909 Epilepsy, unspecified, not intractable, without status epilepticus; J44.9 Chronic obstructive pulmonary disease, unspecified; I12.9 Hypertensive chronic kidney disease with stage 1 through stage 4 chronic kidney disease, or unspecified chronic kidney disease; N18.9 Chronic kidney disease, unspecified; D63.1 Anemia in chronic kidney disease; F17.210 Nicotine dependence, cigarettes, uncomplicated; E87.6 Hypokalemia; B19.20 Unspecified viral hepatitis C without hepatic coma; Z91.19 Patient's noncompliance with other medical treatment and regimen; Z86.73 Personal history of transient ischemic attack (TIA), and cerebral infarction without residual deficits
CPT/HCPCS: 36415; 71045; 80048; 80053; 80061; 82550; 83605; 83690; 83735; 83880; 84443; 84484; 85025; 85610; 85730; 86710; 87040; 93005; 93306; 94664; 97803; 99284; 99285; A9585; J2405; J8499